=== PATIENT | female | born 1955 | race Caucasian/White ===

== ENCOUNTER → 2016-08-08 | Outpatient (REF) | payer MEDICARE, MEDICAID ==
[~2016-08-08] MED LIST: /LINE60TA PO; /MOXI40TA OR; /ONDA4TA OR; ACET500C OR; ACET50TA PO; ACIDOPHILLUS PO; CALC600T7 PO; CIPR500T4 OR; DETR4CAP OR; DILA2TAB OR; DOXY100T OR; DOXY150C PO; FERR325T3 PO; FLAG500T PO; IBUP600T OR; MACRODANTIN OR; MUCINEX PO; Motrin PO; Ondansetron PO; PERC5TAB8 OR; PRED10TA2 OR; Percocet PO; TYLENOL #3 OR; VICO5TAB OR; VITA500C PO; ZOFR8TAB4 SL; [UNRECOGNIZED DRUG - OTHER]; cipro OR
[2016-08-08 19:29] LABS: ANION GAP 6 MEQ/L (8-16); BLOOD UREA NITROGEN 12 MG/DL (7-18); CARBON DIOXIDE LEVEL 34 MEQ/L (21-32); CHLORIDE LEVEL 100 MEQ/L (98-107); CREATININE FOR GFR 0.98 MG/DL (0.55-1.02); GLOMERULAR FILTRATION RATE > 60.0 (>45); GLUCOSE, FASTING 119 MG/DL (80-110); POTASSIUM SERUM 3.9 MEQ/L (3.5-5.1); SODIUM LEVEL 140 MEQ/L (136-145)
== END ==
LOC: M SFHCPLAZ 15:59
PROVIDERS: ATTEND Physician Assistant
DX: Z01.818 Encounter for other preprocedural examination (principal); M75.100 Unspecified rotator cuff tear or rupture of unspecified shoulder, not specified as traumatic
CPT/HCPCS: 80048; 93005; G0463

== ENCOUNTER → 2016-09-01 | Outpatient (REF) | payer MEDICARE, MEDICAID ==
[2016-09-01 15:24] LABS: BASO % 0.7 % (0.0-1.0); EOS # 0.3 K/mm3 (0.0-0.50); EOS % 4.4 % (0.0-3.0); LARGE UNSTAINED CELL # 0.1 K/mm3 (0.0-0.4); LARGE UNSTAINED CELL % 1.7 % (0.0-4.0); LYMPH % 25.9 % (24.0-44.0); MEAN CORPUSCULAR HEMOGLOBIN 29.4 pg (27.0-33.0); MEAN CORPUSCULAR HGB CONC 32.8 g/dl (32.0-36.5); MEAN CORPUSCULAR VOLUME 89.4 fl (80.0-96.0); MONO # 0.5 K/mm3 (0.0-0.8); MONO % 6.5 % (0.0-5.0); NEUTROPHILS # 4.3 K/mm3 (1.8-7.7); NEUTROPHILS % 60.9 % (36.0-66.0); PLATELET COUNT, AUTOMATED 208 k/mm3 (150-450); RED CELL DISTRIBUTION WIDTH 13.4 % (11.5-14.5); WHITE BLOOD COUNT 7.1 K/mm3 (4.0-10.0)
[2016-09-01 15:44] LABS: ALBUMIN 3.2 GM/DL (3.2-5.2); ALBUMIN/GLOBULIN RATIO 1.03 (1.00-1.93); ALKALINE PHOSPHATASE 122 U/L (45-117); ALT/SGPT 27 U/L (12-78); ANION GAP 6 MEQ/L (8-16); AST/SGOT 21 U/L (15-37); BILIRUBIN,TOTAL 0.3 MG/DL (0.2-1.0); BLOOD UREA NITROGEN 9 MG/DL (7-18); CALCIUM LEVEL 8.9 MG/DL (8.8-10.2); CARBON DIOXIDE LEVEL 33 MEQ/L (21-32); CHLORIDE LEVEL 102 MEQ/L (98-107); CREATININE FOR GFR 0.86 MG/DL (0.55-1.02); ERYTHROCYTE SEDIMENTATION RATE 39 mm/hr (0-30); GLOMERULAR FILTRATION RATE > 60.0 (>45); GLUCOSE, FASTING 74 MG/DL (80-110); POTASSIUM SERUM 4.2 MEQ/L (3.5-5.1); SODIUM LEVEL 141 MEQ/L (136-145); TOTAL PROTEIN 6.3 GM/DL (6.4-8.2)
== END ==
LOC: M SHH 15:05
PROVIDERS: ATTEND Orthopaedic Surgery
DX: Z96.611 Presence of right artificial shoulder joint (principal)

== ENCOUNTER → 2016-09-06 | Outpatient (REF) | payer MEDICARE, MEDICAID ==
[2016-09-06 15:05] LABS: BASO % 0.4 % (0.0-1.0); EOS # 0.2 K/mm3 (0.0-0.50); EOS % 3.8 % (0.0-3.0); LARGE UNSTAINED CELL # 0.2 K/mm3 (0.0-0.4); LARGE UNSTAINED CELL % 2.9 % (0.0-4.0); LYMPH # 1.9 K/mm3 (1.5-4.5); MEAN CORPUSCULAR HEMOGLOBIN 28.1 pg (27.0-33.0); MEAN CORPUSCULAR HGB CONC 31.4 g/dl (32.0-36.5); MEAN CORPUSCULAR VOLUME 89.6 fl (80.0-96.0); MONO # 0.3 K/mm3 (0.0-0.8); NEUTROPHILS # 3.2 K/mm3 (1.8-7.7); NEUTROPHILS % 55.9 % (36.0-66.0); PLATELET COUNT, AUTOMATED 228 k/mm3 (150-450); RED CELL DISTRIBUTION WIDTH 13.3 % (11.5-14.5); WHITE BLOOD COUNT 5.7 K/mm3 (4.0-10.0)
[2016-09-06 15:30] LABS: ANION GAP 5 MEQ/L (8-16); BLOOD UREA NITROGEN 13 MG/DL (7-18); CARBON DIOXIDE LEVEL 34 MEQ/L (21-32); CHLORIDE LEVEL 102 MEQ/L (98-107); CREATININE FOR GFR 0.93 MG/DL (0.55-1.02); ERYTHROCYTE SEDIMENTATION RATE 25 mm/hr (0-30); GLOMERULAR FILTRATION RATE > 60.0 (>45); GLUCOSE, FASTING 82 MG/DL (80-110); POTASSIUM SERUM 4.5 MEQ/L (3.5-5.1); SODIUM LEVEL 141 MEQ/L (136-145)
== END ==
LOC: M SHH 14:41
PROVIDERS: ATTEND Nurse Practitioner Family
DX: T84.7XXD Infection and inflammatory reaction due to other internal orthopedic prosthetic devices, implants and grafts, subsequent encounter (principal)

== ENCOUNTER → 2016-09-08 | Outpatient (CLI) | payer MEDICARE, MEDICAID ==
--- NOTE | 2016-09-08 09:34 | REP ---
Right upper extremity duplex Doppler venous ultrasound. Real time compression and duplex Doppler evaluation of the right upper extremity deep venous system is performed. The right subclavian, jugular, axillary, brachial, basilic and cephalic veins are fully compressible where accessible with transducer pressure, and demonstrate no intraluminal thrombus and normal venous waveforms. There is no evidence of deep venous thrombosis. There appears to be a complex fluid collection in the proximal right humeral region measuring 4.3 x 3.1 x 4.0 cm. Impression: No evidence of deep venous thrombosis of the right upper extremity deep vein system. There appears to be a complex fluid collection in the proximal right humeral region measuring 4.3 x 3.1 x 4.0 cm. Signed by Alex Meeks MD 09/08/2016 09:26 A
== END ==
LOC: M RAD 08:35
PROVIDERS: ATTEND Physician Assistant
DX: M79.601 Pain in right arm (principal); M25.411 Effusion, right shoulder

== ENCOUNTER → 2016-09-14 | Outpatient (REF) | payer MEDICARE, MEDICAID ==
[2016-09-14 10:55] LABS: BASO % 0.7 % (0.0-1.0); EOS # 0.2 K/mm3 (0.0-0.50); EOS % 4.7 % (0.0-3.0); LARGE UNSTAINED CELL # 0.1 K/mm3 (0.0-0.4); LARGE UNSTAINED CELL % 2.1 % (0.0-4.0); LYMPH # 1.9 K/mm3 (1.5-4.5); MEAN CORPUSCULAR HGB CONC 32.1 g/dl (32.0-36.5); MEAN CORPUSCULAR VOLUME 90.4 fl (80.0-96.0); MONO # 0.3 K/mm3 (0.0-0.8); MONO % 6.4 % (0.0-5.0); NEUTROPHILS # 2.1 K/mm3 (1.8-7.7); PLATELET COUNT, AUTOMATED 200 k/mm3 (150-450); RED CELL DISTRIBUTION WIDTH 13.3 % (11.5-14.5); WHITE BLOOD COUNT 4.6 K/mm3 (4.0-10.0)
[2016-09-14 11:19] LABS: CALCIUM LEVEL 8.8 MG/DL (8.8-10.2); CREATININE FOR GFR 1.05 MG/DL (0.55-1.02); GLOMERULAR FILTRATION RATE 56.9 (>45)
[2016-09-14 11:57] LABS: ERYTHROCYTE SEDIMENTATION RATE 23 mm/hr (0-30)
== END ==
LOC: M SHH 10:31
PROVIDERS: ATTEND Internal Medicine Infectious Disease
DX: T84.7XXD Infection and inflammatory reaction due to other internal orthopedic prosthetic devices, implants and grafts, subsequent encounter (principal); I10 Essential (primary) hypertension; J01.00 Acute maxillary sinusitis, unspecified; E55.9 Vitamin D deficiency, unspecified

== ENCOUNTER → 2016-09-20 | Outpatient (REF) | payer MEDICARE, MEDICAID ==
[2016-09-20 19:21] LABS: BASO % 0.7 % (0.0-1.0); EOS # 0.2 K/mm3 (0.0-0.50); EOS % 3.7 % (0.0-3.0); LARGE UNSTAINED CELL # 0.1 K/mm3 (0.0-0.4); LARGE UNSTAINED CELL % 2.6 % (0.0-4.0); LYMPH % 34.3 % (24.0-44.0); MEAN CORPUSCULAR HEMOGLOBIN 28.4 pg (27.0-33.0); MEAN CORPUSCULAR HGB CONC 31.1 g/dl (32.0-36.5); MEAN CORPUSCULAR VOLUME 91.4 fl (80.0-96.0); MONO # 0.4 K/mm3 (0.0-0.8); MONO % 6.5 % (0.0-5.0); NEUTROPHILS # 2.8 K/mm3 (1.8-7.7); NEUTROPHILS % 52.2 % (36.0-66.0); PLATELET COUNT, AUTOMATED 189 k/mm3 (150-450); RED CELL DISTRIBUTION WIDTH 13.3 % (11.5-14.5); WHITE BLOOD COUNT 5.4 K/mm3 (4.0-10.0)
[2016-09-20 19:49] LABS: ERYTHROCYTE SEDIMENTATION RATE 20 mm/hr (0-30)
[2016-09-20 20:43] LABS: ANION GAP 8 MEQ/L (8-16); BLOOD UREA NITROGEN 21 MG/DL (7-18); CALCIUM LEVEL 8.7 MG/DL (8.8-10.2); CARBON DIOXIDE LEVEL 29 MEQ/L (21-32); CHLORIDE LEVEL 103 MEQ/L (98-107); CREATININE FOR GFR 0.99 MG/DL (0.55-1.02); GLOMERULAR FILTRATION RATE > 60.0 (>45); GLUCOSE, FASTING 100 MG/DL (80-110); POTASSIUM SERUM 4.3 MEQ/L (3.5-5.1); SODIUM LEVEL 140 MEQ/L (136-145)
== END ==
LOC: M SHH 16:37
PROVIDERS: ATTEND Internal Medicine Infectious Disease
DX: T84.7XXD Infection and inflammatory reaction due to other internal orthopedic prosthetic devices, implants and grafts, subsequent encounter (principal)

== ENCOUNTER → 2016-09-21 | Outpatient (CLI) | payer MEDICARE, MEDICAID ==
--- NOTE | 2016-09-21 15:26 | REP ---
PICC LINE INSERTION WITH SITE-RITE: The procedure was performed under the direct supervision of Dr. Meeks. The risks and benefits of the procedure were explained to the patient and informed consent was obtained. The left cephalic vein was localized using ultrasound guidance. The skin was prepped and draped in a sterile fashion. 2% lidocaine was used as a local anesthetic. Using ultrasound guidance the cephalic vein was cannulated and a 0.018 guidewire was inserted and advanced to the SVC using fluoroscopic guidance. The needle was removed and a 4.5 Bangladeshi dilator and Peel-Away sheath was inserted over the guidewire. A 4.5 Bangladeshi single lumen catheter was cut to a length of 44 cm. The dilator was removed and the catheter was inserted over the guidewire with the tip ending of the SVC. The Peel-Away sheath was removed and the catheter was flushed with Heparinized saline as per hospital protocol. The catheter was affixed to the skin and a sterile dressing was applied. The patient tolerated the procedure well and there were no immediate complications. After the appropriate amount of monitored convalescence the patient was discharged from the department. 0.2 minutes of fluoroscopic time was utilized for this procedure. Reviewed by YOMAIRA Choudhury 09/21/2016 03:43 PEdited and Signed by Alex Meeks MD 09/21/2016 04:51 P
== END ==
LOC: M RADPRO 08:04
PROVIDERS: ATTEND Internal Medicine Infectious Disease
DX: T84.7XXD Infection and inflammatory reaction due to other internal orthopedic prosthetic devices, implants and grafts, subsequent encounter (principal); X58.XXXD Exposure to other specified factors, subsequent encounter; Y93.9 Activity, unspecified; Y92.9 Unspecified place or not applicable; Y99.8 Other external cause status; Z88.1 Allergy status to other antibiotic agents; Z88.8 Allergy status to other drugs, medicaments and biological substances; Z88.2 Allergy status to sulfonamides; Z79.899 Other long term (current) drug therapy

== ENCOUNTER → 2016-09-27 | Outpatient (REF) | payer MEDICARE, MEDICAID ==
[2016-09-27 19:01] LABS: BASO % 0.6 % (0.0-1.0); EOS # 0.2 K/mm3 (0.0-0.50); EOS % 1.9 % (0.0-3.0); LARGE UNSTAINED CELL # 0.1 K/mm3 (0.0-0.4); LARGE UNSTAINED CELL % 1.3 % (0.0-4.0); LYMPH # 1.9 K/mm3 (1.5-4.5); MEAN CORPUSCULAR HEMOGLOBIN 28.8 pg (27.0-33.0); MEAN CORPUSCULAR VOLUME 90.1 fl (80.0-96.0); MONO # 0.6 K/mm3 (0.0-0.8); MONO % 7.2 % (0.0-5.0); NEUTROPHILS # 5.9 K/mm3 (1.8-7.7); PLATELET COUNT, AUTOMATED 184 k/mm3 (150-450); RED CELL DISTRIBUTION WIDTH 13.6 % (11.5-14.5); WHITE BLOOD COUNT 8.7 K/mm3 (4.0-10.0)
[2016-09-27 19:11] LABS: ANION GAP 6 MEQ/L (8-16); BLOOD UREA NITROGEN 13 MG/DL (7-18); CARBON DIOXIDE LEVEL 32 MEQ/L (21-32); CHLORIDE LEVEL 103 MEQ/L (98-107); GLOMERULAR FILTRATION RATE > 60.0 (>45); GLUCOSE, FASTING 99 MG/DL (80-110); POTASSIUM SERUM 3.9 MEQ/L (3.5-5.1); SODIUM LEVEL 141 MEQ/L (136-145)
[2016-09-27 20:43] LABS: ERYTHROCYTE SEDIMENTATION RATE 18 mm/hr (0-30)
== END ==
LOC: M SHH 17:19
PROVIDERS: ATTEND Internal Medicine Infectious Disease
DX: T84.7XXD Infection and inflammatory reaction due to other internal orthopedic prosthetic devices, implants and grafts, subsequent encounter (principal)

== ENCOUNTER → 2016-09-28 | Outpatient (CLI) | payer MEDICARE, MEDICAID ==
[~2016-09-28] MED LIST changes: +LIDOCAINE 1% MDV 20ML VIAL As Ordered ONE
--- NOTE | 2016-09-28 16:04 | REP ---
ULTRASOUND GUIDED RIGHT SHOULDER FLUID COLLECTION DRAINAGE: The procedure was performed under the direct supervision of Dr. Dixon. The patient has a history of a 4.3 x 3.1 x 4.0 complex fluid collection in the proximal right humeral region seen on a previous ultrasound dated 09/08/2016. The risks and benefits of the procedure were explained to the patient and informed consent was obtained. The right shoulder fluid collection was localized using ultrasound guidance. The skin was prepped and draped in a sterile fashion. 1% Xylocaine was used as a local anesthetic. Using ultrasound guidance, a #5-Yi skater centesis catheter was inserted using trocar technique. 72 mL of esvin colored fluid was withdrawn and sent to the lab. The patient tolerated the procedure well and there were no immediate complications. After the appropriate amount of monitored convalescence the patient was discharged from the department. Reviewed by YOMAIRA Choudhury 09/29/2016 04:40 PEdited and Signed by Tanner Dixon MD 09/29/2016 04:57 P
== END ==
LOC: M RADPRO 10:30
PROVIDERS: ATTEND Internal Medicine Infectious Disease
DX: T84.7XXD Infection and inflammatory reaction due to other internal orthopedic prosthetic devices, implants and grafts, subsequent encounter (principal); X58.XXXD Exposure to other specified factors, subsequent encounter; Z79.899 Other long term (current) drug therapy; Z88.1 Allergy status to other antibiotic agents; Z88.8 Allergy status to other drugs, medicaments and biological substances; Z88.2 Allergy status to sulfonamides; Y99.8 Other external cause status

== ENCOUNTER → 2016-10-05 | Outpatient (REF) | payer MEDICARE, MEDICAID ==
[~2016-10-05] MED LIST changes: -LIDOCAINE 1% MDV 20ML VIAL As Ordered ONE
[2016-10-05 12:03] LABS: BASO % 0.6 % (0.0-1.0); EOS # 0.2 K/mm3 (0.0-0.50); EOS % 3.8 % (0.0-3.0); LARGE UNSTAINED CELL # 0.1 K/mm3 (0.0-0.4); LARGE UNSTAINED CELL % 2.4 % (0.0-4.0); LYMPH # 1.8 K/mm3 (1.5-4.5); LYMPH % 36.4 % (24.0-44.0); MEAN CORPUSCULAR HEMOGLOBIN 29.6 pg (27.0-33.0); MEAN CORPUSCULAR HGB CONC 32.5 g/dl (32.0-36.5); MEAN CORPUSCULAR VOLUME 91.1 fl (80.0-96.0); MONO # 0.4 K/mm3 (0.0-0.8); MONO % 8.3 % (0.0-5.0); NEUTROPHILS # 2.3 K/mm3 (1.8-7.7); NEUTROPHILS % 48.4 % (36.0-66.0); PLATELET COUNT, AUTOMATED 170 k/mm3 (150-450); RED CELL DISTRIBUTION WIDTH 13.4 % (11.5-14.5); WHITE BLOOD COUNT 4.6 K/mm3 (4.0-10.0)
[2016-10-05 12:30] LABS: ANION GAP 5 MEQ/L (8-16); BLOOD UREA NITROGEN 17 MG/DL (7-18); CARBON DIOXIDE LEVEL 33 MEQ/L (21-32); CHLORIDE LEVEL 103 MEQ/L (98-107); CREATININE FOR GFR 0.97 MG/DL (0.55-1.02); GLOMERULAR FILTRATION RATE > 60.0 (>45); GLUCOSE, FASTING 109 MG/DL (80-110); POTASSIUM SERUM 4.5 MEQ/L (3.5-5.1); SODIUM LEVEL 141 MEQ/L (136-145)
[2016-10-05 12:40] LABS: ERYTHROCYTE SEDIMENTATION RATE 13 mm/hr (0-30)
== END ==
LOC: M LABDRAW1 11:32
PROVIDERS: ATTEND Internal Medicine Infectious Disease
DX: T84.7XXD Infection and inflammatory reaction due to other internal orthopedic prosthetic devices, implants and grafts, subsequent encounter (principal); X58.XXXD Exposure to other specified factors, subsequent encounter

== ENCOUNTER → 2016-10-26 | Outpatient (REF) | payer MEDICARE, MEDICAID | LOC: M SFHCPLAZ 09:56 | PROVIDERS: ATTEND Nurse Practitioner Family | DX: I10 Essential (primary) hypertension (principal); J01.00 Acute maxillary sinusitis, unspecified; E55.9 Vitamin D deficiency, unspecified ==

== ENCOUNTER → 2016-11-07 | Outpatient (REF) | payer MEDICARE, MEDICAID ==
[~2016-11-07] MED LIST changes: +ASPI1TAB PO; +BUPR300T34 PO; +BUSP30TA PO; +CALCTAB75 PO; +CEPH500C PO; +CLON0.3T PO; +CYCL10TA PO; +DULO1CAP3 PO; +DULO30CA PO; +FLUC100T; +FOLI1TAB4 PO; +HYDR-3713 PO; +HYDR25TA6; +LEVA1TAB PO; +MAGN1CAP PO; +MAGN500T5 PO; +NORC1TAB4 PO; +NYST1POW9; +OXAY1TAB; +OXYC1TAB23 PO; +REQU5TAB PO; +ROPI5TAB; +SUMA4INJ4; +TYLE325T5 PO; +VITA200015 PO; +VITA500C10 PO; +VITA500T3 PO; +WELLTAB38 PO; +WELLTAB40
[2016-11-07 16:04] LABS: BASO # 0.1 K/mm3 (0.0-0.2); EOS # 0.3 K/mm3 (0.0-0.50); EOS % 4.3 % (0.0-3.0); LARGE UNSTAINED CELL # 0.2 K/mm3 (0.0-0.4); LARGE UNSTAINED CELL % 2.7 % (0.0-4.0); LYMPH # 2.7 K/mm3 (1.5-4.5); LYMPH % 43.5 % (24.0-44.0); MEAN CORPUSCULAR HEMOGLOBIN 29.2 pg (27.0-33.0); MEAN CORPUSCULAR HGB CONC 32.2 g/dl (32.0-36.5); MEAN CORPUSCULAR VOLUME 90.7 fl (80.0-96.0); MONO # 0.5 K/mm3 (0.0-0.8); MONO % 7.4 % (0.0-5.0); NEUTROPHILS # 2.5 K/mm3 (1.8-7.7); NEUTROPHILS % 41.2 % (36.0-66.0); PLATELET COUNT, AUTOMATED 224 k/mm3 (150-450); RED CELL DISTRIBUTION WIDTH 13.6 % (11.5-14.5); WHITE BLOOD COUNT 6.2 K/mm3 (4.0-10.0)
[2016-11-07 17:43] LABS: ERYTHROCYTE SEDIMENTATION RATE 12 mm/hr (0-30)
== END ==
LOC: M SFHCPLAZ 13:04
PROVIDERS: ATTEND Internal Medicine Infectious Disease
DX: T84.7XXD Infection and inflammatory reaction due to other internal orthopedic prosthetic devices, implants and grafts, subsequent encounter (principal)
CPT/HCPCS: 85025; 85652; 86140; G0463

== ENCOUNTER 2016-12-13 12:23 | Emergency (ER) | payer MEDICARE, MEDICAID ==
[~2016-12-13] VITALS: Ht 162.6 cm; Wt 159.1 kg
[~2016-12-13 12:23] MED LIST changes: -ASPI1TAB PO; -BUPR300T34 PO; -BUSP30TA PO; -CALCTAB75 PO; -CEPH500C PO; -CLON0.3T PO; -CYCL10TA PO; -DULO1CAP3 PO; -DULO30CA PO; -FLUC100T; -FOLI1TAB4 PO; -HYDR-3713 PO; -HYDR25TA6; -LEVA1TAB PO; -MAGN1CAP PO; -MAGN500T5 PO; -NORC1TAB4 PO; -NYST1POW9; -OXAY1TAB; -OXYC1TAB23 PO; -REQU5TAB PO; -ROPI5TAB; -SUMA4INJ4; -TYLE325T5 PO; -VITA200015 PO; -VITA500C10 PO; -VITA500T3 PO; -WELLTAB38 PO; -WELLTAB40
[2016-12-13] MEDS ORDERED: CLON0.3T PO (12:36)
[2016-12-13] MEDS ORDERED: HYDR25TA6 (12:36)
[2016-12-13] MEDS ORDERED: DULO1CAP3 PO (12:36)
[2016-12-13] MEDS ORDERED: BUSP30TA PO (12:36)
[2016-12-13] MEDS ORDERED: ROPI5TAB (12:36)
[2016-12-13] MEDS ORDERED: VITA200015 PO (12:36)
[2016-12-13] MEDS ORDERED: CEPH500C PO (12:36)
[2016-12-13] MEDS ORDERED: NYST1POW9 (12:36)
[2016-12-13] MEDS ORDERED: SUMA4INJ4 (12:36)
[2016-12-13] MEDS ORDERED: MAGN1CAP PO (12:36)
[2016-12-13] MEDS ORDERED: CYCL10TA PO (12:36)
[2016-12-13] MEDS ORDERED: ASPI1TAB PO (12:36)
[2016-12-13] MEDS ORDERED: WELLTAB40 (12:36)
[2016-12-13] MEDS ORDERED: FOLI1TAB4 PO (12:36)
[2016-12-13] MEDS ORDERED: VITA500T3 PO (12:36)
[2016-12-13] MEDS ORDERED: OXAY1TAB (12:36)
[2016-12-13] MEDS ORDERED: REQU5TAB PO (12:36)
[2016-12-13] MEDS ORDERED: BUPR300T34 PO (12:36)
[2016-12-13] MEDS ORDERED: ONDANSETRON 4MG/2ML VIAL (J2405) IV ONE (14:30)
[2016-12-13] MEDS ORDERED: KETOROLAC 30 MG/ML VIAL (J1885) IV ONE (14:30)
[2016-12-13] MEDS ORDERED: NS 1,000 ML IV ONE (14:30)
--- NOTE | 2016-12-13 15:06 | REP ---
CT ABDOMEN AND PELVIS WITHOUT CONTRAST: 12/13/2016. Comparison: 12/30/2015, 12/25/2015. Clinical history: Right renal colic. Findings: Noncontrast examination technique utilized. CT abdomen: Lung bases clear. Heart enlarged with some left atrial and ventricular enlargement. No pericardial thickening or effusion. No hiatal hernia. There are surgical clips in the region of the GE junction. The liver is enlarged with a 21 cm vertical diameter. No splenomegaly or focal splenic lesion. No hepatic lesion, biliary dilatation, or ascites. Gallbladder shows no calcified stone or mass. There is a very large diastases of the rectus muscles with ventral hernia to that supraumbilical abdominal wall of omental fat only. Pancreas shows no mass or ductal dilatation. Stomach collapsed. Adrenal glands intact. Kidneys show a stone in the lower pole on the left about 6.5 mm in the renal pelvis on the right. There is a 12 mm stone and this was not present on the CT one year ago. I do not see hydronephrosis or hydroureter. Ureters are followed to the bladder, but do not show a definite stone within their course. They are not dilated. Small bowel loops and colon are without obstruction or mass. Bone windows demonstrate diffuse degenerative changes throughout the lumbar and lower thoracic spine and some anterolisthesis of L3 on L4, grade 1. No compression deformities are noted. The visualized ribs intact. CT pelvis: Lumbosacral junction shows sacralization transverse process of L5 on the left as anatomic variation. The sacrum, iliac bones, acetabuli, ischia and hips show minor degenerative changes without destructive lesion. The pelvis and the bladder is only partially filled, but without stone, wall thickening or mass. Uterus absent. The vaginal cuff intact. There is no pelvic free fluid. Colon and small bowel loops are without dilatation or mass. No colitis or diverticulitis. No inguinal hernia, but a ventral hernia is noted extensively from the upper abdomen through the infraumbilical region with a large pannus in the abdomen and pelvis. Impression: 1. There is a 12 mm stone in a nondilated renal pelvis on the right, which is new from last year's study. A smaller stone in the lower pole of the left kidney about 6.5 mm is again seen. There is no hydronephrosis, hydroureter or ureteral stone. No bladder stone. 2. Very large ventral hernia and diastases of the rectus muscles abdomen and pelvis without obstruction. There are no other significant or acute findings. Signed by Eliezer Mcbride MD 12/13/2016 07:05 P
[2016-12-13 15:15] LABS: ALBUMIN 3.8 GM/DL (3.2-5.2); ALBUMIN/GLOBULIN RATIO 0.95 (1.00-1.93); BILIRUBIN,DIRECT 0.1 MG/DL (0.0-0.2); BILIRUBIN,TOTAL 0.5 MG/DL (0.2-1.0); CALCIUM LEVEL 9.9 MG/DL (8.8-10.2); CREATININE FOR GFR 1.08 MG/DL (0.55-1.02); GLOMERULAR FILTRATION RATE 54.9 (>45); POTASSIUM SERUM 4.3 MEQ/L (3.5-5.1); TOTAL PROTEIN 7.8 GM/DL (6.4-8.2)
[2016-12-13 15:19] LABS: BASO % 0.5 % (0.0-1.0); EOS # 0.1 K/mm3 (0.0-0.50); EOS % 1.7 % (0.0-3.0); LARGE UNSTAINED CELL # 0.1 K/mm3 (0.0-0.4); LARGE UNSTAINED CELL % 1.8 % (0.0-4.0); LYMPH # 2.6 K/mm3 (1.5-4.5); LYMPH % 33.5 % (24.0-44.0); MEAN CORPUSCULAR HEMOGLOBIN 28.9 pg (27.0-33.0); MEAN CORPUSCULAR HGB CONC 32.6 g/dl (32.0-36.5); MEAN CORPUSCULAR VOLUME 88.6 fl (80.0-96.0); MONO # 0.4 K/mm3 (0.0-0.8); MONO % 4.9 % (0.0-5.0); NEUTROPHILS # 4.2 K/mm3 (1.8-7.7); NEUTROPHILS % 57.6 % (36.0-66.0); PLATELET COUNT, AUTOMATED 204 k/mm3 (150-450); RED CELL DISTRIBUTION WIDTH 13.9 % (11.5-14.5); WHITE BLOOD COUNT 7.3 K/mm3 (4.0-10.0)
[2016-12-13 15:40] LABS: CALCIUM OXALATE CRYSTALS SMALL
[2016-12-13 15:50] VITALS: BP 132/77
[2017-02-09] MEDS ORDERED: DULO30CA PO (09:30)
[2017-02-09] MEDS ORDERED: VITA500C10 PO (09:32)
== END 2016-12-13 15:43 | disposition home or self-care (01) ==
LOC: M ED 12:23
DX: K43.9 Ventral hernia without obstruction or gangrene (principal); N23 Unspecified renal colic; N13.30 Unspecified hydronephrosis; G43.909 Migraine, unspecified, not intractable, without status migrainosus; G47.30 Sleep apnea, unspecified; F41.9 Anxiety disorder, unspecified; Z98.84 Bariatric surgery status; Z87.442 Personal history of urinary calculi; Z88.1 Allergy status to other antibiotic agents; Z88.2 Allergy status to sulfonamides; Z88.8 Allergy status to other drugs, medicaments and biological substances; Z79.82 Long term (current) use of aspirin; Z79.899 Other long term (current) drug therapy
CPT/HCPCS: 74176; 80048; 80076; 81001; 83690; 85025; 96374; 96375; 99283; J1885; J2405

== ENCOUNTER → 2016-12-14 | Outpatient (REF) | payer MEDICARE, MEDICAID ==
[~2016-12-14] MED LIST changes: +ASPI1TAB PO; +BUPR300T34 PO; +BUSP30TA PO; +CALCTAB75 PO; +CEPH500C PO; +CLON0.3T PO; +CYCL10TA PO; +DULO1CAP3 PO; +DULO30CA PO; +FLUC100T; +FOLI1TAB4 PO; +HYDR-3713 PO; +HYDR25TA6; +LEVA1TAB PO; +MAGN1CAP PO; +MAGN500T5 PO; +NORC1TAB4 PO; +NYST1POW9; +OXAY1TAB; +OXYC1TAB23 PO; +REQU5TAB PO; +ROPI5TAB; +SUMA4INJ4; +TYLE325T5 PO; +VITA200015 PO; +VITA500C10 PO; +VITA500T3 PO; +WELLTAB38 PO; +WELLTAB40
== END ==
LOC: M LABDRAWP 15:43
PROVIDERS: ATTEND Family Medicine
DX: R30.0 Dysuria (principal)
CPT/HCPCS: 81002; 87086; G0463

== ENCOUNTER 2016-12-16 17:00 | Observation (INO) | payer MEDICARE, MEDICAID ==
[~2016-12-16] VITALS: Ht 162.6 cm; Wt 159.6 kg
[~2016-12-16 17:00] MED LIST changes: -CALCTAB75 PO; -DULO30CA PO; -FLUC100T; -HYDR-3713 PO; -LEVA1TAB PO; -MAGN500T5 PO; -NORC1TAB4 PO; -OXYC1TAB23 PO; -TYLE325T5 PO; -VITA500C10 PO; -WELLTAB38 PO
[2016-12-16] MEDS ORDERED: ONDANSETRON 4MG/2ML VIAL (J2405) IV ONE (18:30)
[2016-12-16] MEDS ORDERED: NS 1,000 ML IV ONE (18:30)
[2016-12-16 18:44] LABS: CALCIUM OXALATE CRYSTALS SMALL
[2016-12-16 19:38] LABS: BASO % 0.6 % (0.0-1.0); EOS # 0.2 K/mm3 (0.0-0.50); EOS % 2.2 % (0.0-3.0); LARGE UNSTAINED CELL # 0.1 K/mm3 (0.0-0.4); LARGE UNSTAINED CELL % 1.9 % (0.0-4.0); LYMPH # 2.4 K/mm3 (1.5-4.5); LYMPH % 34.2 % (24.0-44.0); MEAN CORPUSCULAR HEMOGLOBIN 28.6 pg (27.0-33.0); MEAN CORPUSCULAR HGB CONC 32.6 g/dl (32.0-36.5); MEAN CORPUSCULAR VOLUME 87.6 fl (80.0-96.0); MONO # 0.4 K/mm3 (0.0-0.8); NEUTROPHILS # 3.7 K/mm3 (1.8-7.7); PLATELET COUNT, AUTOMATED 199 k/mm3 (150-450); RED CELL DISTRIBUTION WIDTH 13.9 % (11.5-14.5); WHITE BLOOD COUNT 6.8 K/mm3 (4.0-10.0)
[2016-12-16] MEDS: HYDROmorphone HCL 1 MG/ML SYRINGE (J1170) IV PRN ×3 (19:39→21:59)
[2016-12-16 20:02] LABS: ALBUMIN 3.8 GM/DL (3.2-5.2); ALBUMIN/GLOBULIN RATIO 1.27 (1.00-1.93); ALKALINE PHOSPHATASE 118 U/L (45-117); ALT/SGPT 27 U/L (12-78); ANION GAP 9 MEQ/L (8-16); AST/SGOT 18 U/L (15-37); BILIRUBIN,DIRECT 0.1 MG/DL (0.0-0.2); BILIRUBIN,TOTAL 0.4 MG/DL (0.2-1.0); BLOOD UREA NITROGEN 15 MG/DL (7-18); CALCIUM LEVEL 9.2 MG/DL (8.8-10.2); CARBON DIOXIDE LEVEL 29 MEQ/L (21-32); CHLORIDE LEVEL 108 MEQ/L (98-107); GLOMERULAR FILTRATION RATE > 60.0 (>45); GLUCOSE, FASTING 84 MG/DL (80-110); SODIUM LEVEL 146 MEQ/L (136-145); TOTAL PROTEIN 6.8 GM/DL (6.4-8.2)
--- NOTE | 2016-12-16 20:30 | REPUSA ---
CLINICAL HISTORY: Renal colic, recently diagnosed with right stone. TECHNIQUE: Realtime sonographic images were obtained in multiple projections. FINDINGS: The right kidney measures 11.0 x 4.4 x 4.4 cm. There is a 12.3 mm stone in the pelvis on the right. The left kidney measures 11.4 x 6.4 x 5.7 cm. The left ureter is dilated at 14.4 mm. Both kidneys are free of hydronephrosis. There is no evidence of solid or cystic mass. There is no perinephric fluid. IMPRESSION: 1. There is a 12.3 mm stone in the pelvis on the right. 2. The right ureter is dilated at 14.4 mm. 3. Consider follow-up with CT. Thank you for your kind referral of this patient. We appreciate the opportunity to participate in thi s patient's care.
--- NOTE | 2016-12-16 22:20 | REPUSA ---
CLINICAL HISTORY: Renal colic. COMPARISON: 12/13/2016. TECHNIQUE: Multiple axial, coronal, sagittal CT images were obtained through the abdomen and pelvis without administration of oral or IV contrast material. COMMENTS: The liver is enlarged measuring 23 cm. There is no intra or extrahepatic biliary ductal dilatation. The spleen is mildly enlarged measuring 14 cm. The gallbladder is within normal limits. The pancre as is of normal contour and attenuation characteristics. There is no evidence of adrenal mass. A note is made of 8 x 4 mm calculus in the right UPJ with some mild hydronephrosis. There is 9 x 4 m m calculus noted in the lower pole of the left kidney which is non-obstructive. 12 mm cyst is presen t in the mid pole of the left kidney posteriorly. There is no evidence for appendicitis. There is no bowel wall thickening. Post surgical changes are noted in the stomach. There is a large ventral abdominal hernia containing non-obstructed loops of bowel. There is no evidence of abdominal ascites or lymphadenopathy. There is no evidence of intrinsic or extrinsic bladder mass. There is no pelvic ascites or lymphaden opathy. The patient is status post complete hysterectomy. Images of the lung bases show no evidence of pleural or parenchymal mass. There are no pleural effus ions. Grade-1/2 anterolisthesis of L3 over L4 and L4 over L5 is noted. IMPRESSION: 1. 8 x 4 mm calculus in the right UPJ with some mild hydronephrosis. There is 9 x 4 mm calculus not ed in the lower pole of the left kidney which is non-obstructive. 2. Hepatosplenomegaly. 3. Post surgical changes. 4. Large ventral abdominal hernia containing non-obstructed bowel. 5. Overall no significant interval change.
[2016-12-16] MEDS ORDERED: NS 1,000 ML IV SCH (22:49)
[2016-12-16] MEDS ORDERED: NORC1TAB4 PO (23:28)
[2016-12-16] MEDS ORDERED: MAGN500T5 PO (23:28)
[2016-12-16] MEDS ORDERED: CALCTAB75 PO (23:28)
[2016-12-16] MEDS ORDERED: diphenhydrAMINE INJ 50MG/ML VIAL (J1200) IV STA (23:39)
[2016-12-17] VITALS (9 sets, daily range): BP systolic 123–179; BP diastolic 58–96
[2016-12-17] MEDS: MORPHINE 2 MG/ML 1ML SYRINGE IV PRN ×7 (03:24→22:23)
[2016-12-17] MEDS ORDERED: ACETAMINOPHEN TAB 650MG DOSE (2X325MG) PO PRN (03:45)
[2016-12-17] MEDS: D5W/0.9% SODIUM CHLORIDE 1,000 ML IV SCH ×2 (03:48→18:52)
[2016-12-17 07:47] LABS: MEAN CORPUSCULAR HEMOGLOBIN 28.2 pg (27.0-33.0); MEAN CORPUSCULAR HGB CONC 31.8 g/dl (32.0-36.5); MEAN CORPUSCULAR VOLUME 88.6 fl (80.0-96.0); RED CELL DISTRIBUTION WIDTH 13.9 % (11.5-14.5)
[2016-12-17 08:00] LABS: ANION GAP 9 MEQ/L (8-16); BLOOD UREA NITROGEN 15 MG/DL (7-18); CALCIUM LEVEL 8.7 MG/DL (8.8-10.2); CARBON DIOXIDE LEVEL 28 MEQ/L (21-32); CHLORIDE LEVEL 109 MEQ/L (98-107); CREATININE FOR GFR 0.89 MG/DL (0.55-1.02); GLOMERULAR FILTRATION RATE > 60.0 (>45); GLUCOSE, FASTING 116 MG/DL (80-110); POTASSIUM SERUM 3.9 MEQ/L (3.5-5.1); SODIUM LEVEL 146 MEQ/L (136-145)
[2016-12-17] MEDS: ONDANSETRON 4MG/2ML VIAL (J2405) IV PRN (10:09)
[2016-12-17] MEDS: CIPROFLOXACIN 500 MG TAB PO SCH ×2 (10:10→18:52)
[2016-12-17] MEDS ORDERED: LIDOCAINE 2% INJ 100 MG/5 ML SDV (FOR ANES.) As Ordered ONE (14:30)
[2016-12-17] MEDS ORDERED: PROPOFOL 200 MG/20 ML VIAL As Ordered ONE ×2 (14:30→15:30)
[2016-12-17] MEDS ORDERED: MIDAZOLAM INJ 2 MG/2 ML VIAL (J2250) As Ordered ONE (14:31)
[2016-12-17] MEDS ORDERED: fentaNYL 100 MCG/2 ML INJECTION (J3010) As Ordered ONE ×2 (14:31→17:00)
[2016-12-17] MEDS ORDERED: GENTAMICIN SULF INJ 80MG/2ML VIAL (J1580) As Ordered ONE (15:00)
[2016-12-17] MEDS ORDERED: CONRAY-60 60% 50ML VIAL (Q9961) As Ordered ONE (15:14)
[2016-12-17] MEDS ORDERED: diphenhydrAMINE INJ 50MG/ML VIAL (J1200) As Ordered ONE ×2 (15:30→17:00)
[2016-12-17] MEDS ORDERED: MORPHINE 2 MG/ML 1ML SYRINGE As Ordered ONE (16:24)
[2016-12-17] MEDS ORDERED: PERCOCET 5MG/325MG TAB As Ordered ONE ×2 (16:46→17:14)
[2016-12-17] MEDS: PERCOCET 5MG/325MG TAB PO PRN ×2 (16:47→17:15)
[2016-12-17] MEDS: fentaNYL 100 MCG/2 ML INJECTION (J3010) IV PRN ×4 (17:07→17:31)
[2016-12-17] MEDS ORDERED: diphenhydrAMINE INJ 50MG/ML VIAL (J1200) IV ONE (17:15)
[2016-12-17] MEDS ORDERED: NORCO, ANEXSIA 5/325MG TABLET (HYDROcodone/ACETAMINOPHEN) PO PRN (18:00)
[2016-12-17] MEDS: HEPARIN SOD (PORCINE) 5000 UNITS/ML VIAL SQ SCH ×2 (18:43→21:59)
[2016-12-17] MEDS: FOLIC ACID 1 MG TAB PO SCH (18:51)
[2016-12-17] MEDS: buPROPion **XL** TABLET 150MG (WELLBUTRIN XL) PO SCH (18:51)
[2016-12-17] MEDS: ASPIRIN 81 MG ENTERIC TAB PO SCH (18:51)
[2016-12-17] MEDS: CYANOCOBALAMIN 500 MCG TAB PO SCH (18:52)
[2016-12-17] MEDS ORDERED: DULoxetine 30 MG CAP (CYMBALTA) PO SCH (21:00)
[2016-12-17] MEDS ORDERED: rOPINIRole 1MG TAB PO SCH (21:00)
[2016-12-17] MEDS: cloNIDine 0.1 MG TAB PO SCH (22:00)
[2016-12-17] MEDS: busPIRone 10 MG TAB PO SCH (22:01)
[2016-12-18 04:00] VITALS: BP 113/63
[2016-12-18] MEDS: D5W/0.9% SODIUM CHLORIDE 1,000 ML IV SCH (04:28)
[2016-12-18] MEDS: HEPARIN SOD (PORCINE) 5000 UNITS/ML VIAL SQ SCH (06:03)
[2016-12-18] MEDS: MORPHINE 2 MG/ML 1ML SYRINGE IV PRN ×2 (06:03→08:50)
[2016-12-18 08:00] VITALS: BP 124/70
[2016-12-18] MEDS: buPROPion **XL** TABLET 150MG (WELLBUTRIN XL) PO SCH (08:46)
[2016-12-18] MEDS: CYANOCOBALAMIN 500 MCG TAB PO SCH (08:47)
[2016-12-18] MEDS: FOLIC ACID 1 MG TAB PO SCH (08:47)
[2016-12-18 08:48] VITALS: BP 123/83
[2016-12-18] MEDS: cloNIDine 0.1 MG TAB PO SCH (08:48)
[2016-12-18] MEDS: ASPIRIN 81 MG ENTERIC TAB PO SCH (08:49)
[2016-12-18] MEDS: busPIRone 10 MG TAB PO SCH (08:49)
[2016-12-18] MEDS: ONDANSETRON 4MG/2ML VIAL (J2405) IV PRN (08:57)
--- NOTE | 2016-12-18 08:57 | IPNPDOC ---
Assessment/Plan Date Seen The patient was seen on 12/18/16. Plan/VTE VTE Prophylaxis Ordered?: Yes Subjective Review oF Systems Chief Complaint POD#1 s/p cystoscopy, right ureteral stent placement No acute events overnight. Patient is doing well. Cipro changed to Keflex because of cipro interaction with duloxetine. She reports being able to take Keflex without an allergic reaction. No fever overnight. Pain well controlled. No nausea. Tolerating regular diet. AVSS NAD Abdomen soft, nt, nd Ext wwp Laboratory Tests 12/17/16 07:19 61 year old woman who presented with right flank pain and fever, and found to have a right UPJ stone. Now POD#1 s/p cystoscopy and right ureteral stent. - Regular diet - Continue Keflex - Discharge home this morning - Follow-up with Dr. Marsh for definitive stone management. Patient has appointment scheduled for 12/22/16 at 11:30 AM. Objective Vital Signs/I&O Vital Signs Date Time Temp Pulse Resp B/P (MAP) Pulse Ox O2 Delivery O2 Flow Rate FiO2 12/18/16 08:50 20 12/18/16 08:48 123/83 12/18/16 04:00 98.1 66 98 Room Air 12/17/16 18:15 2.0 I&O- Last 24 Hours up to 6 AM 12/18/16 06:00 Intake Total 2660 ml Output Total 1250 ml Balance 1410 ml Laboratory Data Microbiology Microbiology 12/16/16 Urine Culture - Final, Complete VIKI HARTLEY MD Dec 18, 2016 08:57
[2016-12-18] MEDS ORDERED: CEPHALEXIN 500 MG CAP PO SCH (09:00)
--- NOTE | 2016-12-18 09:25 | REP ---
RETROGRADE PYELOGRAM: 12/17/2016. Comparison: CT abdomen and pelvis 12/16/2016, renal ultrasound 12/16/2016, CT 12/13/2016. Clinical history: Nephrolithiasis. Findings: Seven images from C-arm fluoroscopy provided to Dr. Gramajo of the urology division are reviewed. Subtle radiodensity overlying the renal fossae in the right side on initial image with the wire coursing above it into the renal sinus. Subsequently a catheter is placed over that wire into the kidney and contrast then injected showing distention of the renal pelvis and mild caliectasis. Catheter is into upper pole huey. Thereafter a double pigtail stent was placed with the proximal coil in the renal pelvis and the distal coil in the bladder. Fluoroscopy time 7 seconds. Signed by Eliezer Mcbride MD 12/18/2016 05:51 P
--- NOTE | 2016-12-18 10:54 | HPE ---
DATE OF ADMISSION: 12/16/2016 CHIEF COMPLAINT: Right flank pain. HISTORY OF PRESENT ILLNESS: The patient is a 61-year-old woman with a history of nephrolithiasis and multiple urologic procedures for renal stones who presented with right flank pain for several days. She also reports nausea at home and difficulty with appetite. She reports subjective fevers at home, but she did not take her temperature. She denies hematuria or dysuria at this time. The pain radiates from the right flank to the right groin area. She had a CAT scan performed in the emergency room which showed a 10 mm right ureteropelvic junction (UPJ) stone with mild right hydronephrosis. ALLERGIES: - FENTANYL - SULFA - TRIMETHOPRIM - VANCOMYCIN - LEVAQUIN (IV version, she reports being able to tolerate by mouth version, and she also reports being able to tolerate Cipro) - CEPHALOSPORINS (she reports being able to tolerate Keflex) - TETRACYCLINES - MACROLIDES HOME MEDICATIONS: - duloxetine 60 mg nightly - Keflex 500 mg three times a day - clonidine 3 mg by mouth twice a day - buspirone 30 mg by mouth twice a day - bupropion XL 300 mg daily - folic acid 1 mg daily - ropinirole 5 mg daily - vitamin B12 500 mcg daily - vitamin D 2000 units daily - cyclobenzaprine 10 mg three times a day as needed for spasms - aspirin 81 mg daily - Vicodin 1 tablet every 4 hours as needed - magnesium oxide 500 mg daily - calcium with vitamin D 500/400 one tablet by mouth daily PAST MEDICAL HISTORY: 1. Nephrolithiasis. 2. Hypertension. 3. Migraines. 4. Sleep apnea. 5. History of pneumonia. 6. History of gastric bypass. 7. History of gestational diabetes. 8. History of methicillin-resistant Staphylococcus aureus (MRSA). PAST SURGICAL HISTORY: 1. Abdominal surgery for hernia repair. 2. Ureteroscopy and extracorporeal shockwave lithotripsy (ESWL). 3. Breast lumpectomy. 4. Total hysterectomy. 5. Tonsillectomy and adenoidectomy. 6. Gastric bypass in 2005. SOCIAL HISTORY: The patient denies smoking, alcohol use or drug use. FAMILY HISTORY: Noncontributory. REVIEW OF SYSTEMS: Ten point review of systems is negative except for what was mentioned in the history of present illness. PHYSICAL EXAMINATION: VITAL SIGNS: Temperature 98.1, pulse 70, blood pressure 135/75, pulse oximetry 98% on room air. GENERAL: The patient is alert and oriented times three, lying comfortably in bed. She is obese. HEENT: Normocephalic, atraumatic. Extraocular movements intact. Mucosa moist. NECK: Supple. LUNGS: No wheezing. Normal respiratory effort. ABDOMEN: Obese. Soft. Nontender. Nondistended. Mild costovertebral angle (CVA) tenderness on the right side. No CVA tenderness on the left side. EXTREMITIES: Warm and well perfused. SKIN: Warm and dry. LABORATORY DATA: White blood cell count 5.0, hemoglobin 12.4, hematocrit 39. Urine culture is pending. Urinalysis was positive for trace leukocyte esterase and cloudy appearance. CT scan of the abdomen and pelvis showed a left lower pole stone and a right stone at the UPJ measuring over 10 mm in size by my measurement. There is mild right hydronephrosis. ASSESSMENT AND PLAN: The patient is a 61-year-old female with a history of nephrolithiasis and right flank pain. She has a right large UPJ stone. She also reports subjective fevers at home. 1. Admit for antibiotics and IV hydration, as well as, pain control. 2. Book for the operating room for cystoscopy and right ureteral stent placement. We discussed with the patient that given her fevers at home and not having a urine culture back yet that I did not recommend ureteroscopy at this time. The patient was in agreement. 3. The patient has a followup appointment scheduled with Dr. Marsh on , 12/22/2016, according to the patient. 4. Will start Cipro antibiotics. The patient reports being able to tolerate Cipro in the past without an allergic reaction. She is allergic to almost all antibiotic classes.
--- NOTE | 2016-12-18 11:02 | RO ---
DATE OF OPERATION: 12/17/2016 OPERATING SURGEON: Elia Gramajo MD WINDOW CLEANER: ANESTHESIOLOGIST: Dr. Sharma ANESTHESIA: General with ETA. PREOPERATIVE DIAGNOSES: Right ureteropelvic junction stone and right hydronephrosis. POSTOPERATIVE DIAGNOSES: Right ureteropelvic junction stone and right hydronephrosis. OPERATION PERFORMED: Cystoscopy, right retrograde pyelogram, right ureteral stent placement. ESTIMATED BLOOD LOSS: Minimal. URINE OUTPUT: Not measurable. DRAINS: None. COMPLICATIONS: None. IMPLANTS: 6 x 22-32 cm multilength double J ureteral stent was placed into the right ureter. OPERATIVE FINDINGS: 1. Right hydronephrosis. 2. Radiopaque stone seen at the right ureteropelvic junction. 3. Right retrograde pyelogram performed to ensure that the proximal curl of the ureteral stent was in the renal pelvis. A curl was seen in the bladder, both fluoroscopically and cystoscopically. INDICATIONS FOR THE PROCEDURE: The patient is a 61-year-old woman with a history of nephrolithiasis and multiple procedures for renal stones in the past. She presented on 12/16/2016 to the emergency room with right flank pain and nausea, as well as fevers at home. This was her second presentation in 4 days to the emergency room. For this reason, it was decided to admit her for pain control and place a right ureteral stent into the right kidney. It was decided not to perform ureteroscopy at this time because the patient had fevers and chills at home for several days. DESCRIPTION OF PROCEDURE: Procedure narrative: The patient was taken to the operating room after informed consent and all necessary paperwork were confirmed. She was placed in supine position. She was induced by the anesthesia team after a formal time-out was performed. Preoperative antibiotics with gentamicin were given. The patient was then placed in the dorsal lithotomy position and prepped and draped in the usual sterile fashion. A 21-Lao 30-degree lens cystoscope was placed into the bladder through the urethra. There were no abnormalities noted in the bladder. There was cloudy urine, however, in the bladder and cloudy efflux from the right ureteral orifice. At this point, a 5-Lao open-ended ureteral catheter was used to place a 0.035 zip wire into the right renal collecting system. The 5-Lao open-ended ureteral catheter was advanced under fluoroscopic guidance into the right kidney. A right retrograde pyelogram was performed with instillation of contrast. The 0.035 zip wire was then replaced through the 5-Lao open-ended ureteral catheter, and the ureteral catheter was removed keeping the wire in place using Seldinger technique. At this point, a 6 x 22-32 cm multilength ureteral stent was placed into the right kidney under fluoroscopic guidance. A curl was seen in the kidney fluoroscopically, and a curl was seen in the bladder, both fluoroscopically and cystoscopically. The bladder was then drained. The patient tolerated the procedure well. She was taken to the recovery room without incident. PLAN: 1. The patient has followup scheduled with Dr. Marsh in order to schedule definitive stone management. 2. The patient is aware that the stent can only stay in temporarily, and she needs to have it removed, as well as have her stone definitively treated. ANNIE
--- NOTE | 2016-12-18 11:07 | DSES ---
DATE OF ADMISSION: 12/16/2016 DATE OF DISCHARGE: 12/18/2016 PRIMARY CARE PROVIDER: Dr. Atkinson ADMITTING PROVIDER: Elia Gramajo MD PROCEDURES PERFORMED DURING THIS ADMISSION: Cystoscopy, right retrograde pyelogram, right ureteral double J stent placement on 12/17/2016. COMPLICATIONS: None. ADMISSION/DISCHARGE DIAGNOSES: 1. Right flank pain. 2. Right ureteropelvic junction stone. 3. Right hydronephrosis. 4. Left nonobstructing renal stone. 5. Hypertension. PAST MEDICAL HISTORY: 1. Hypertension. 2. Posttraumatic stress disorder (PTSD). 3. Bilateral knee replacement. 4. Shoulder joint replacement status post infection and removal of hardware. 5. Ventral hernia. 6. Nephrolithiasis. 7. Obesity. PAST SURGICAL HISTORY: 1. Ventral hernia repair with mesh status post infection. 2. Multiple extracorporeal shock wave lithotripsy (ESWL) treatments as well as ureteroscopy. 3. Bilateral knee replacement. 4. Right shoulder joint replacement status post explant for infection. 5. Gastric bypass. 6. Total hysterectomy. ALLERGIES: CEPHALOSPORINS (excluding Keflex), FENTANYL, LEVOFLOXACIN, MACROLIDES, SULFA DRUGS, TETRACYCLINES, TRIMETHOPRIM, VANCOMYCIN. SOCIAL HISTORY: The patient denies alcohol use, history of smoking, or drug use. HOSPITALIZATION COURSE: The patient is a 61-year-old woman who presented to the emergency room on the evening of 12/16/2016 with right flank pain, nausea and fevers at home. She had presented three days earlier with similar symptoms on 12/13/2016 and was discharged home with pain medicine and urologic followup. However, pain began to worsen on 12/16/2016 and she decided to return to the emergency room. A CAT scan performed showed an 11 mm stone at the right ureteropelvic junction (UPJ) with mild hydronephrosis. At this point, the patient was admitted for observation and pain control. On 12/17/2016, the patient underwent an uncomplicated procedure which was a cystoscopy, right retrograde pyelogram, right ureteral stent placement. The details of that procedure are dictated in an operative report separately. The patient tolerated the procedure well. Afterwards, she was able to tolerate a regular diet. There were issues with pain control in the evening and it was decided to keep her until the morning of 12/18/2016. She was discharged home on 12/18/2016 in good condition. OBJECTIVE: VITAL SIGNS: Temperature 98.1, pulse 66, respiratory rate 18, blood pressure 113/63, pulse oximetry 98% on room air. LABORATORY DATA: From 12/17/2016, white blood cell count 5.0, hemoglobin 12.4, hematocrit 39.0, platelet count 180. Chemistry: Sodium 146, potassium 3.9, chloride 109, bicarbonate 28, BUN 15, creatinine 0.89, calcium 8.7. Microbiology: Report reads that the specimen appears contaminated. IMAGING STUDIES: CT of the abdomen and pelvis was performed on 12/16/2016. The CAT scan demonstrated a right UPJ stone with mild right hydronephrosis. There was also a 9 x 4 mm calculous in the lower pole of the left kidney which was nonobstructive, hepatosplenomegaly, postsurgical changes, large ventral abdominal hernia containing nonobstructed bowel. DISCHARGE MEDICATIONS: - [place] 5/325 every four hours as needed for pain - aspirin 81 mg daily - bupropion XL 300 mg daily - buspirone 30 mg twice a day - calcium with vitamin D 500/400 one tablet daily - Keflex 500 mg by mouth three times a day - vitamin D 2000 units daily - clonidine 0.3 mg twice a day - vitamin B12 500 mcg by mouth daily - duloxetine 60 mg nightly - folic acid 1 mg daily - magnesium 500 mg daily - ropinirole (Requip) 5 mg nightly DISCHARGE INSTRUCTIONS: The patient was discharged home. The patient already has scheduled followup with Dr. Marsh on 12/22/2016 at 11:30 a.m. The patient should also followup with her primary care provider.
[2017-02-09] MEDS ORDERED: DULO30CA PO (09:30)
[2017-02-09] MEDS ORDERED: VITA500C10 PO (09:32)
== END 2016-12-18 10:30 | disposition home or self-care (01) ==
LOC: M ED 17:00 → M ED INP 22:49 → M PED 12-17 01:06
PROVIDERS: ADMIT Urology; ATTEND Urology
DX: N13.2 Hydronephrosis with renal and ureteral calculous obstruction (principal); I10 Essential (primary) hypertension; G47.30 Sleep apnea, unspecified; F43.12 Post-traumatic stress disorder, chronic; E66.01 Morbid (severe) obesity due to excess calories; Z88.2 Allergy status to sulfonamides; Z98.84 Bariatric surgery status; Z88.1 Allergy status to other antibiotic agents; Z88.8 Allergy status to other drugs, medicaments and biological substances; Z79.82 Long term (current) use of aspirin; Z79.899 Other long term (current) drug therapy
CPT/HCPCS: 36415; 52332; 74176; 74420; 76775; 80048; 80076; 81001; 83690; 85025; 85027; 87086; 96361; 96372; 96374; 96375; 96376; 99284; C2617; J1170; J1200; J1580; J2250; J2405; J3010; Q9961

== ENCOUNTER 2016-12-22 12:36 | Observation (INO) | payer MEDICARE, MEDICAID ==
[~2016-12-22] VITALS: Ht 162.6 cm; Wt 165.8 kg
[~2016-12-22 12:36] MED LIST changes: +CALCTAB75 PO; +MAGN500T5 PO; +NORC1TAB4 PO
[2016-12-22] MEDS ORDERED: MORPHINE 2 MG/ML 1ML SYRINGE IV PRN (13:45)
[2016-12-22] MEDS ORDERED: ACETAMINOPHEN TAB 650MG DOSE (2X325MG) PO PRN (13:45)
[2016-12-22] MEDS ORDERED: ONDANSETRON 4MG/2ML VIAL (J2405) IV PRN (13:45)
[2016-12-22 16:00] VITALS: BP 156/102
[2016-12-22 16:17] LABS: MEAN CORPUSCULAR HEMOGLOBIN 28.6 pg (27.0-33.0); MEAN CORPUSCULAR HGB CONC 32.6 g/dl (32.0-36.5); RED CELL DISTRIBUTION WIDTH 14.1 % (11.5-14.5); WHITE BLOOD COUNT 6.1 K/mm3 (4.0-10.0)
[2016-12-22 16:26] LABS: ANION GAP 5 MEQ/L (8-16); BLOOD UREA NITROGEN 15 MG/DL (7-18); CALCIUM LEVEL 8.7 MG/DL (8.8-10.2); CARBON DIOXIDE LEVEL 33 MEQ/L (21-32); CHLORIDE LEVEL 105 MEQ/L (98-107); CREATININE FOR GFR 0.89 MG/DL (0.55-1.02); GLOMERULAR FILTRATION RATE > 60.0 (>45); GLUCOSE, FASTING 97 MG/DL (80-110); POTASSIUM SERUM 4.3 MEQ/L (3.5-5.1); SODIUM LEVEL 143 MEQ/L (136-145)
--- NOTE | 2016-12-22 18:14 | REP ---
CHEST, TWO VIEWS: HISTORY: Preoperative. COMPARISON: 12/29/2015 The lungs are clear. The heart is normal in size. The pulmonary vasculature is normal in appearance. The patient is status post removal of metal hardware from the right shoulder. Minimal degenerative change is present in the thoracic spine. IMPRESSION: No acute disease. Signed by Omar Blanc MD 12/23/2016 08:27 A
[2016-12-22] MEDS: PERCOCET 5MG/325MG TAB PO PRN (18:32)
[2016-12-22 20:00] VITALS: BP 138/76
[2016-12-22] MEDS: busPIRone 10 MG TAB PO SCH ×2 (20:08→20:26)
[2016-12-22] MEDS: cloNIDine 0.1 MG TAB PO SCH ×2 (20:08→20:26)
[2016-12-22] MEDS: ASPIRIN 81 MG ENTERIC TAB PO SCH (20:08)
[2016-12-22] MEDS: DOCUSATE SODIUM 100 MG CAP PO SCH ×2 (20:08→20:26)
[2016-12-22] MEDS: rOPINIRole 1MG TAB PO SCH (20:25)
[2016-12-22] MEDS: MORPHINE 4 MG/ML 1ML SYRINGE IV PRN (20:25)
[2016-12-22] MEDS: buPROPion **XL** TABLET 150MG (WELLBUTRIN XL) PO SCH (20:27)
[2016-12-22] MEDS: DULoxetine 30 MG CAP (CYMBALTA) PO SCH (20:27)
--- NOTE | 2016-12-22 21:52 | ECGEPIP ---
Stationary ECG Study [facility] Test Date: 2016-12-22 Pat Name: COURTNEY STARR Department: Room: [place] [address] Gender: F Roving Department Supervisor: JEREMI : 1955 Requested By: KARLA Fernández Order Number: [id number] Reading MD: Ryan Fernández Measurements Intervals [place] Rate: 63 P: 62 RI: 177 QRS: 21 QRSD: 118 T: 37 QT: 394 QTc: 406 Interpretive Statements SINUS RHYTHM MODERATE INTRAVENTRICULAR CONDUCTION DELAY ARTIFACT NOTED ON THE BASELINE COMPARED TO THE LAST 4 TRACINGS IN THE SYSTEM, NO SIGNIFICANT CHANGES Electronically Signed On 12-22-2016 21:52:22 EDT by Ryan Fernández
[2016-12-22 21:55] VITALS: BP 120/56
[2016-12-23] MEDS: MORPHINE 4 MG/ML 1ML SYRINGE IV PRN ×2 (03:11→18:14)
[2016-12-23] MEDS: PERCOCET 5MG/325MG TAB PO PRN ×5 (03:43→20:59)
[2016-12-23 06:00] VITALS: BP 148/72
[2016-12-23 08:30] VITALS: BP 123/74
[2016-12-23] MEDS: buPROPion **XL** TABLET 150MG (WELLBUTRIN XL) PO SCH (08:32)
[2016-12-23] MEDS: DOCUSATE SODIUM 100 MG CAP PO SCH ×2 (08:32→21:00)
[2016-12-23] MEDS: cloNIDine 0.1 MG TAB PO SCH ×2 (08:33→20:57)
[2016-12-23] MEDS: busPIRone 10 MG TAB PO SCH ×2 (08:34→20:57)
[2016-12-23] MEDS: ASPIRIN 81 MG ENTERIC TAB PO SCH (09:00)
[2016-12-23] MEDS ORDERED: CONRAY-60 60% 50ML VIAL (Q9961) As Ordered ONE (11:56)
--- NOTE | 2016-12-23 12:11 | HPEPDOC ---
General Date of Admission Dec 22, 2016 at 14:29 Chief Complaint The patient is a 61-year-old female admitted with a reason for visit of Kidney Stone. History of Present Illness This is a 61 y/o F w/ a history of kidney stones, who is s/p cystoscopy and right ureteral stent placement on 12/17/16 for an obstructing 1cm UPJ stone. She was seen in the office yesterday for f/u and at that time she noted still having severe pain not controlled w/ oral pain medication. She noted that the pain had not improved w/ stent placement. She was therefore admitted to the hospital for better pain control until her surgery. She notes her pain was well -controlled o/n. She denies fevers or chills. Home Medications Scheduled Aspirin (Aspirin 81) 81 Mg Tab, 81 MG PO DAILY, (Reported) Bupropion HCl (Bupropion HCl Xl) 300 Mg Tab, 300 MG PO DAILY, (Reported) Buspirone HCl (Buspirone HCl) 30 Mg Tab, 30 MG PO BID, (Reported) Calcium/Vitamin D (Calcium 500 +D 500-400 mg-Unit) 1 Tab Tab, 1 TAB PO DAILY, ( Reported) Cephalexin Monohydrate (Cephalexin) 500 Mg Cap, 500 MG PO TID, (Reported) Cholecalciferol (Vitamin D) 2,000 Unit Tab, 2,000 UNIT PO DAILY, (Reported) Clonidine Hydrochloride (Clonidine HCl) 0.3 Mg Tab, 0.3 MG PO BID, (Reported) Cyanocobalamin (Vitamin B-12) 500 Mcg Tab, 500 MCG PO DAILY, (Reported) Duloxetine Hcl (Duloxetine HCl) 60 Mg Cap, 60 MG PO QHS, (Reported) Folic Acid (Folic Acid) 1 Mg Tab, 1 MG PO DAILY, (Reported) Magnesium Oxide (Magnesium) 500 Mg Tab, 500 MG PO DAILY, (Reported) Ropinirole Hydrochloride (Requip) 5 Mg Tab, 5 MG PO QHS, (Reported) Scheduled PRN Acetaminophen/Hydrocodone ([place] 5-325 mg) 1 Tab Tab, 1 TAB PO Q4H PRN for PAIN, (Reported) Allergies Coded Allergies: Sulfa Drugs (Verified Allergy, Severe, anyphyalaxis, 12/16/16) Levofloxacin (Verified Allergy, Mild, 12/16/16) Cephalosporins (Verified Allergy, Unknown, 12/16/16) Fentanyl (Unverified Allergy, Unknown, SEVERE ITCHING, 12/16/16) Macrolides (Verified Allergy, Unknown, 12/16/16) Sulfa Drugs Cross Reactors (Verified Allergy, Unknown, 12/16/16) Sulfamethoxazole (Unverified Allergy, Unknown, 12/16/16) Replaces SULFAMETHOXAZ Tetracyclines (Verified Allergy, Unknown, 12/16/16) Trimethoprim (Unverified Allergy, Unknown, 12/16/16) Replaces SULFAMETHOXAZ Vancomycin (Verified Allergy, Unknown, 12/16/16) Past Medical History Medical History morbid obesity, kidney stones, depression Surgical History several kidney stone surgeries, right shoulder surgery, total hysterectomy, right knee arthroscopy Review of Symptoms Constitutional: Denies: Chills, Fever, Night Sweats Eyes: Denies: Pain, Vision change ENT: Denies: Head Aches, Ear Pain, Dysphagia Skin: Denies: Rash, Lesions, Breakdown Pulmonary: Denies: Dyspnea, Cough Cardiovascular: Denies: Chest Pain, Palpitations, Orthopnea, Paroxysmal Noc. Dyspnea, Lt Headedness Gastrointestinal: Denies: Nausea, Vomiting, Abdominal Pain, Diarrhea Genitourinary: Denies: Dysuria, Frequency, Incontinence, Retention Musculoskeletal: Reports: Back Pain (right flank pain) Neurological: Denies: Weakness, Numbness, Change in speech, Confusion Psych: Reports: Mood Normal Physical Examination General Exam: Positive: Alert, No Acute Distress ENT Exam: Positive: Atraumatic Chest Exam: Positive: Clear to auscultation Heart Exam: Positive: Rate Normal Abdomen Exam: Positive: Soft, Negative: Tenderness Skin Exam: Positive: Nl turgor and temperature Neuro Exam: Positive: Normal Speech Psych Exam: Positive: Mental status NL, Mood NL Vital Signs Vital Signs Date Time Temp Pulse Resp B/P (MAP) Pulse Ox O2 Delivery O2 Flow Rate FiO2 12/23/16 08:34 20 Room Air 12/23/16 08:33 123/74 12/23/16 08:30 97.2 65 98 Laboratory Data Labs 24H Laboratory Tests 2 12/22/16 14:54: Anion Gap 5L, Glomerular Filtration Rate > 60.0, Blood Urea Nitrogen 15, Creatinine 0.89, Sodium Level 143, Potassium Level 4.3, Chloride Level 105, Carbon Dioxide Level 33H, Calcium Level 8.7L CBC/BMP Laboratory Tests 12/22/16 14:54 Red Blood Count 4.87, Mean Corpuscular Volume 88.0, Mean Corpuscular Hemoglobin 28.6, Mean Corpuscular Hemoglobin Concent 32.6, Red Cell Distribution Width 14.1 , Calcium Level 8.7 L Assessment/Plan This is a 61 y/o F w/ an obstructing 1cm right UPJ stone, admitted for pain control. Plan for OR today for cystoscopy, right ureteroscopy w/ laser lithotripsy, and right ureteral stent placement. Plan / VTE VTE Prophylaxis Ordered?: Yes VTE Exclusion Mechanical Proph: N/A:VTE Prophy Ordered Plan Plan - OR for cystoscopy, right ureteroscopy w/ laser lithotripsy, right ureteral stent placement - NPO - ancef contemporary or modern dancer to OR - should be ok for discharge home after surgery if pain is controlled KARLA GUERRERO MD Dec 23, 2016 12:11
[2016-12-23] MEDS: LevoFLOXacin(LEVAQUIN)500 MG/100 ML BAG (J1956) As Ordered ONE ×2 (12:19→12:35)
[2016-12-23] MEDS ORDERED: ROCURONIUM BROMIDE 50 MG/5 ML VIAL/SYRINGE As Ordered ONE (12:32)
[2016-12-23] MEDS ORDERED: fentaNYL 250 MCG/5 ML INJECTION (J3010) As Ordered ONE (12:32)
[2016-12-23] MEDS ORDERED: LIDOCAINE 2% INJ 100 MG/5 ML SDV (FOR ANES.) As Ordered ONE (12:32)
[2016-12-23] MEDS ORDERED: dexameTHASONE 4 MG/ML 1ML VIAL (J1100) As Ordered ONE (12:32)
[2016-12-23] MEDS ORDERED: diphenhydrAMINE INJ 50MG/ML VIAL (J1200) As Ordered ONE ×2 (12:32→15:21)
[2016-12-23] MEDS ORDERED: PROPOFOL 200 MG/20 ML VIAL As Ordered ONE (12:32)
[2016-12-23] MEDS ORDERED: ONDANSETRON 4MG/2ML VIAL (J2405) As Ordered ONE (12:32)
[2016-12-23] MEDS ORDERED: MIDAZOLAM INJ 2 MG/2 ML VIAL (J2250) As Ordered ONE (12:32)
[2016-12-23] MEDS ORDERED: ePHEDrine SULFATE 25 MG/5 ML(5MG/ML) SYRINGE As Ordered ONE (12:45)
[2016-12-23] MEDS ORDERED: PHENYLephrine HCL 500 MCG/5 ML (100MCG/ML) SYRINGE (J2370) As Ordered ONE (12:52)
[2016-12-23] MEDS ORDERED: LevoFLOXacin IV 500 MG in APPROPRIATE DILUENT 1 EA IV ONE (13:00)
[2016-12-23] MEDS ORDERED: SUGAMMADEX SODIUM 500 MG/5 ML VIAL (BRIDION) As Ordered ONE (13:30)
[2016-12-23] MEDS ORDERED: fentaNYL 100 MCG/2 ML INJECTION (J3010) As Ordered ONE ×3 (14:07→14:58)
[2016-12-23] MEDS: fentaNYL 100 MCG/2 ML INJECTION (J3010) IV PRN ×10 (14:08→15:12)
[2016-12-23] MEDS ORDERED: LR 1,000 ML IV SCH (14:15)
[2016-12-23] MEDS ORDERED: PERCOCET 5MG/325MG TAB PO PRN (14:15)
[2016-12-23] MEDS ORDERED: ONDANSETRON 4MG/2ML VIAL (J2405) IV PRN (14:15)
[2016-12-23] MEDS ORDERED: MEPERIDINE INJ 25 MG/ML VIAL (J2175) IV PRN (14:15)
[2016-12-23] MEDS ORDERED: METOCLOPRAMIDE INJ 10MG/2ML VIAL (J2765) IV PRN (14:15)
--- NOTE | 2016-12-23 15:14 | REP ---
Retrograde pyelogram: The procedures performed by the urologist, Dr. Marsh. A series of three intraoperative fluoroscopic views are performed during right ureteral stent placement. The films indicate that the proximal and distal pigtails are in satisfactory locations. Fluoroscopic exposure time is 13 seconds. Fluoroscopic images are performed with last image hold technology. These images require no additional radiation. Signed by Alex Jones MD 12/23/2016 03:06 P
[2016-12-23] MEDS ORDERED: MEPERIDINE INJ 25 MG/ML VIAL (J2175) As Ordered ONE (15:21)
[2016-12-23] MEDS ORDERED: diphenhydrAMINE INJ 50MG/ML VIAL (J1200) IV PRN (16:00)
[2016-12-23] MEDS ORDERED: KETOROLAC 30 MG/ML VIAL (J1885) As Ordered ONE (16:04)
[2016-12-23] MEDS ORDERED: PERCOCET 5MG/325MG TAB As Ordered ONE (16:04)
[2016-12-23] MEDS ORDERED: KETOROLAC 30 MG/ML VIAL (J1885) IV SCH (16:15)
[2016-12-23] MEDS: rOPINIRole 1MG TAB PO SCH (20:56)
[2016-12-23] MEDS: DULoxetine 30 MG CAP (CYMBALTA) PO SCH (21:00)
[2016-12-24] VITALS: BP 125/69
[2016-12-24] MEDS: MORPHINE 4 MG/ML 1ML SYRINGE IV PRN (00:47)
[2016-12-24 04:00] VITALS: BP 112/57
[2016-12-24] MEDS: PERCOCET 5MG/325MG TAB PO PRN (07:20)
[2016-12-24 07:23] LABS: MEAN CORPUSCULAR HEMOGLOBIN 28.3 pg (27.0-33.0); MEAN CORPUSCULAR VOLUME 88.2 fl (80.0-96.0); WHITE BLOOD COUNT 6.8 K/mm3 (4.0-10.0)
[2016-12-24 08:00] VITALS: BP 127/80
[2016-12-24] MEDS: ASPIRIN 81 MG ENTERIC TAB PO SCH (08:53)
[2016-12-24] MEDS: busPIRone 10 MG TAB PO SCH (08:53)
[2016-12-24] MEDS: DOCUSATE SODIUM 100 MG CAP PO SCH (08:53)
[2016-12-24] MEDS: buPROPion **XL** TABLET 150MG (WELLBUTRIN XL) PO SCH (08:53)
[2016-12-24 08:54] VITALS: BP 127/80
[2016-12-24] MEDS: cloNIDine 0.1 MG TAB PO SCH (08:54)
[2016-12-24] MEDS ORDERED: TYLE325T5 PO (09:54)
--- NOTE | 2016-12-24 15:38 | RO ---
DATE OF PROCEDURE: 12/23/2016 PREPROCEDURE DIAGNOSIS: Right kidney stone. POSTPROCEDURE DIAGNOSIS: Right kidney stone. PROCEDURE: Cystoscopy, right ureteroscopy with laser lithotripsy and basket extraction of stones, right retrograde pyelogram with intraoperative interpretation of images, right ureteral stent placement. SURGEON: Dr. Merlin Marsh [employer]: None. ANESTHESIA: General. OPERATIVE INDICATIONS: This is a 61-year-old female who was brought to the operating room this past weekend for a right ureteral stent placement for an obstructing 1 cm right ureteropelvic junction stone. She has had continued pain despite stent placement and was therefore brought to the operating room today for treatment of her stone. DESCRIPTION OF PROCEDURE: The patient was brought to the operating room where general anesthesia was induced. Prophylactic antibiotics were infused. She was then placed in the dorsal lithotomy position and prepped and draped in the usual sterile fashion. A rigid cystoscope was then inserted into the urethral meatus and advanced to the bladder. Once within the bladder, the previously placed stent was seen. The stent was then grasped and withdrawn until the distal end was seen protruding from urethral meatus. I then advanced a wire up the stent into the right collecting system. The stent was then removed leaving the wire in place. Next, I advanced an access sheath over the wire up into the right collecting system. The wire was secured to the drape to serve as a safety wire. I went back into the sheath with a flexible ureteroscope and the 1 cm stone was seen. The stone was then fragmented into smaller fragments using a 200 Micron laser fiber. The fragments were then removed using the basket. Any remaining fragments inside the kidney were broken down into tiny pieces using the laser. These pieces should be small enough to pass. At this point, I checked the kidney for any additional stones. No additional stones were seen. I then withdrew the ureteroscope along with the access sheath and no stones were seen within the ureter. Prior to doing this, a retrograde pyelogram was performed. It was negative for extravasation. I then utilized the previously placed wire to advance a 6-Yoruba x 22-32 cm JJ ureteral stent up into the right collecting system. The wire was then removed and there were adequate curls of the stent in the right renal pelvis and in the bladder. The bladder was then emptied of all fluid and this marked the conclusion of the procedure. The patient was then taken out of the dorsal lithotomy position, awakened from anesthesia and transported to the recovery room in stable condition. ESTIMATED BLOOD LOSS: 0 mL. COMPLICATIONS: None. SPECIMENS: Kidney stones. PLAN: The patient will be sent back up to her room and then discharged home. Will take her stent out in my office in a few weeks. ANNIE
--- NOTE | 2016-12-25 15:28 | DSES ---
DATE OF ADMISSION: 12/22/2016 DATE OF DISCHARGE: 12/24/2016 ADMITTING PHYSICIAN: Merlin Marsh MD DISCHARGING PHYSICIAN: Merlin Marsh MD ADMISSION DIAGNOSIS: Kidney stones. DISCHARGE DIAGNOSIS: Kidney stones. PROCEDURE PERFORMED: Cystoscopy, right ureteroscopy with laser lithotripsy and basket extraction of stones and right ureteral stent exchange on 12/23/2016. HISTORY OF PRESENT ILLNESS: This is a 61-year-old female who underwent cystoscopy and right ureteral stent placement for an obstructing right ureteropelvic junction stone one week ago. Despite stent placement, she still had severe pain and was admitted to the hospital on 12/22/2016 for pain control prior to her surgery on 12/23/2016. HOSPITAL COURSE: The patient was admitted to 12/22/2016 for pain control. Pain was well controlled with IV pain medications. The patient was taken to the operating room on 12/23/2016 for management of the stone. Postoperatively, she still had pain and continued to require IV pain medication. She therefore stayed the night and her pain was well controlled on the next morning. She was therefore discharged home on 12/24/2016 in good condition. She will followup in the clinic in a few weeks for a stent removal. ANNIE
[2017-01-06 14:14] LABS: Size 10x5x4 mm (.)
[2017-02-09] MEDS ORDERED: DULO30CA PO (09:30)
[2017-02-09] MEDS ORDERED: VITA500C10 PO (09:32)
== END 2016-12-24 10:30 | disposition home or self-care (01) ==
LOC: M MS4PR 14:29 → M PED 12-23 19:55
PROVIDERS: ADMIT Urology; ATTEND Urology
DX: N20.0 Calculus of kidney (principal); I10 Essential (primary) hypertension; F32.9 Major depressive disorder, single episode, unspecified; E66.01 Morbid (severe) obesity due to excess calories; Z79.82 Long term (current) use of aspirin; Z79.899 Other long term (current) drug therapy; Z88.2 Allergy status to sulfonamides; Z88.8 Allergy status to other drugs, medicaments and biological substances; Z88.1 Allergy status to other antibiotic agents
CPT/HCPCS: 36415; 52356; 71020; 74420; 80048; 82360; 85027; 88300; 93005; 96374; 96376; C1769; C1894; C2617; G0378; G0463; J1100; J1200; J1885; J1956; J2175; J2250; J2370; J2405; J3010; Q9961

== ENCOUNTER → 2016-12-26 | Outpatient (REF) | payer MEDICARE, MEDICAID ==
[~2016-12-26] MED LIST changes: +DULO30CA PO; +FLUC100T; +HYDR-3713 PO; +LEVA1TAB PO; +OXYC1TAB23 PO; +TYLE325T5 PO; +VITA500C10 PO; +WELLTAB38 PO
[2016-12-26 12:08] LABS: BASO % 0.6 % (0.0-1.0); EOS # 0.2 K/mm3 (0.0-0.50); EOS % 3.1 % (0.0-3.0); LARGE UNSTAINED CELL # 0.1 K/mm3 (0.0-0.4); LARGE UNSTAINED CELL % 1.2 % (0.0-4.0); LYMPH % 27.1 % (24.0-44.0); MEAN CORPUSCULAR HEMOGLOBIN 28.7 pg (27.0-33.0); MEAN CORPUSCULAR VOLUME 89.8 fl (80.0-96.0); MONO # 0.6 K/mm3 (0.0-0.8); MONO % 8.4 % (0.0-5.0); NEUTROPHILS # 4.1 K/mm3 (1.8-7.7); NEUTROPHILS % 59.5 % (36.0-66.0); PLATELET COUNT, AUTOMATED 193 k/mm3 (150-450); RED CELL DISTRIBUTION WIDTH 14.2 % (11.5-14.5)
[2016-12-26 12:27] LABS: ERYTHROCYTE SEDIMENTATION RATE 21 mm/hr (0-30)
== END ==
LOC: M SFHCPLAZ 09:26
PROVIDERS: ATTEND Internal Medicine Infectious Disease
DX: T84.7XXD Infection and inflammatory reaction due to other internal orthopedic prosthetic devices, implants and grafts, subsequent encounter (principal); X58.XXXA Exposure to other specified factors, initial encounter; Y92.9 Unspecified place or not applicable; Y93.9 Activity, unspecified; Y99.8 Other external cause status
CPT/HCPCS: 36415; 85025; 85652; 86140; G0463

== ENCOUNTER → 2017-01-05 | Outpatient (REF) | payer MEDICARE, MEDICAID ==
[2017-01-05 18:14] LABS: YEAST LIKE CELL URINE AUTO SMALL
== END ==
LOC: M SMT 16:57
PROVIDERS: ATTEND Urology
DX: R30.0 Dysuria (principal)

== ENCOUNTER → 2017-01-30 | Outpatient (REF) | payer MEDICARE, MEDICAID ==
[2017-01-30 13:12] LABS: BASO % 0.6 % (0.0-1.0); EOS # 0.2 K/mm3 (0.0-0.50); EOS % 2.7 % (0.0-3.0); LARGE UNSTAINED CELL # 0.1 K/mm3 (0.0-0.4); LARGE UNSTAINED CELL % 2.1 % (0.0-4.0); LYMPH # 2.2 K/mm3 (1.5-4.5); LYMPH % 32.4 % (24.0-44.0); MEAN CORPUSCULAR HEMOGLOBIN 28.9 pg (27.0-33.0); MEAN CORPUSCULAR HGB CONC 33.2 g/dl (32.0-36.5); MEAN CORPUSCULAR VOLUME 87.2 fl (80.0-96.0); MONO # 0.4 K/mm3 (0.0-0.8); MONO % 5.2 % (0.0-5.0); NEUTROPHILS # 3.8 K/mm3 (1.8-7.7); PLATELET COUNT, AUTOMATED 197 k/mm3 (150-450); RED CELL DISTRIBUTION WIDTH 14.1 % (11.5-14.5); WHITE BLOOD COUNT 6.7 K/mm3 (4.0-10.0)
[2017-01-30 14:28] LABS: ERYTHROCYTE SEDIMENTATION RATE 20 mm/hr (0-30)
== END ==
LOC: M SFHCPLAZ 10:55
PROVIDERS: ATTEND Internal Medicine Infectious Disease
DX: A49.8 Other bacterial infections of unspecified site (principal); Z23 Encounter for immunization
CPT/HCPCS: 36415; 85025; 85652; 86140; 90686; G0008; G0463

== ENCOUNTER → 2017-02-02 | Outpatient (CLI) | payer MEDICARE, MEDICAID ==
--- NOTE | 2017-02-02 16:50 | REP ---
ULTRASOUND RIGHT SHOULDER: Ultrasound right shoulder performed in the area of surgery to evaluate for possible fluid collection. There is a scar anteriorly. At the medial end of the scar in the region of the mid clavicle there is a complex fluid collection in the soft tissues which measures 4.5 x 3.6 x 5.3 cm. Differential diagnosis would include abscess or complex seroma/hematoma. Unreviewed
== END ==
LOC: M RAD 10:57
PROVIDERS: ATTEND Internal Medicine Infectious Disease
DX: T84.7XXD Infection and inflammatory reaction due to other internal orthopedic prosthetic devices, implants and grafts, subsequent encounter (principal); A49.8 Other bacterial infections of unspecified site

== ENCOUNTER → 2017-02-15 | Outpatient (CLI) | payer MEDICARE, MEDICAID ==
[~2017-02-15] MED LIST changes: +LIDOCAINE 1% MDV 20ML VIAL As Ordered ONE; +LIDOCAINE 2% INJ 100 MG/5 ML SDV (FOR ANES.) As Ordered ONE; +MIDAZOLAM INJ 2 MG/2 ML VIAL (J2250) As Ordered ONE; +PROPOFOL 200 MG/20 ML VIAL As Ordered ONE; +ePHEDrine SULFATE 25 MG/5 ML(5MG/ML) SYRINGE As Ordered ONE
--- NOTE | 2017-02-15 15:49 | REP ---
ULTRASOUND GUIDED RIGHT SHOULDER ABSCESS DRAIN: The procedure was performed under the direct supervision of Dr. Dixon. The patient has a history of a 4.5 x 3.6 x 5.3 cm complex fluid collection in the soft tissue at the medial end of the scar in the region of the mid clavicle seen on a previous ultrasound dated 02/02/2017. The risks and benefits of the procedure were explained to the patient and informed consent was obtained. The right shoulder abscess was localized using ultrasound guidance. The skin was prepped and draped in a sterile fashion. 1% lidocaine was used as a local anesthetic. Using ultrasound guidance, a #5-Gabonese Skater centesis catheter was inserted using trocar technique. 45 mL of yellow fluid was withdrawn and sent to the lab. The patient tolerated the procedure well and there were no immediate complications. After the appropriate amount of monitored convalescence the patient was discharged from the department. Reviewed by YOMAIRA Choudhury 02/15/2017 04:47 PEdited and Signed by Tanner Dixon MD 02/16/2017 05:18 P
== END ==
LOC: M RADPRO 09:35
PROVIDERS: ATTEND Internal Medicine Infectious Disease
DX: T84.7XXD Infection and inflammatory reaction due to other internal orthopedic prosthetic devices, implants and grafts, subsequent encounter (principal); X58.XXXD Exposure to other specified factors, subsequent encounter; Y93.9 Activity, unspecified; Y92.9 Unspecified place or not applicable; Y99.8 Other external cause status; Z96.653 Presence of artificial knee joint, bilateral; Z96.611 Presence of right artificial shoulder joint; Z98.84 Bariatric surgery status; Z88.5 Allergy status to narcotic agent; Z88.2 Allergy status to sulfonamides; Z88.1 Allergy status to other antibiotic agents; Z79.82 Long term (current) use of aspirin; Z79.899 Other long term (current) drug therapy; Z79.2 Long term (current) use of antibiotics
CPT/HCPCS: 20611; 87070; 87075; 87076; 87205; J2250

== ENCOUNTER 2017-02-17 18:44 | Day surgery (SDC) | payer MEDICARE, MEDICAID ==
[~2017-02-17] VITALS: Ht 162.6 cm; Wt 147.7 kg
[~2017-02-17 18:44] MED LIST changes: -FLUC100T; -HYDR-3713 PO; -LEVA1TAB PO; -LIDOCAINE 1% MDV 20ML VIAL As Ordered ONE; -LIDOCAINE 2% INJ 100 MG/5 ML SDV (FOR ANES.) As Ordered ONE; -MIDAZOLAM INJ 2 MG/2 ML VIAL (J2250) As Ordered ONE; -OXYC1TAB23 PO; -PROPOFOL 200 MG/20 ML VIAL As Ordered ONE; -WELLTAB38 PO; -ePHEDrine SULFATE 25 MG/5 ML(5MG/ML) SYRINGE As Ordered ONE
[2017-02-17] MEDS ORDERED: WELLTAB40 (18:53)
[2017-02-17] MEDS ORDERED: WELLTAB38 PO (18:53)
[2017-02-17] MEDS ORDERED: FLUC100T (18:53)
[2017-02-17] MEDS ORDERED: MORPHINE 4 MG/ML 1ML SYRINGE IV ONE (22:15)
[2017-02-17] MEDS ORDERED: diphenhydrAMINE INJ 50MG/ML VIAL (J1200) IV ONE (22:15)
[2017-02-17 22:34] LABS: CALCIUM OXALATE CRYSTALS SMALL; YEAST LIKE CELL URINE AUTO SMALL
[2017-02-17 22:49] LABS: BASO % 0.3 % (0.0-1.0); EOS # 0.1 10^3/uL (0.0-0.50); EOS % 1.6 % (0.0-3.0); IMMATURE GRANULOCYTE % 0.3 % (0-0); LYMPH % 34.6 % (24.0-44.0); MEAN CORPUSCULAR HEMOGLOBIN 28.2 pg (27.0-33.0); MEAN CORPUSCULAR HGB CONC 31.4 g/dl (32.0-36.5); MEAN CORPUSCULAR VOLUME 89.7 fl (80.0-96.0); MONO # 0.6 10^3/uL (0.0-0.8); MONO % 7.3 % (0.0-5.0); NEUTROPHILS # 4.9 10^3/uL (1.8-7.7); NEUTROPHILS % 55.9 % (36.0-66.0); PLATELET COUNT, AUTOMATED 204 10^3/uL (150-450); RED CELL DISTRIBUTION WIDTH 14.5 % (11.5-14.5); WHITE BLOOD COUNT 8.8 10^3/uL (4.0-10.0)
--- NOTE | 2017-02-17 23:00 | REPUSA ---
CT of the abdomen and pelvis without contrast Clinical statement: Pain. Technique: Multiple axial CT images were obtained from the base of the lungs to the floor of the pelv is utilizing 5 mm axial slices without administration of contrast. Coronal and sagittal reconstructio ns were also obtained. Comparison: 12/16/2016. Findings: Chest: The visualized lung bases are clear. Abdomen: The kidneys are normal in size bilaterally. There is moderate left-sided hydronephrosis caus ed by 9 mm obstructing stone at the left ureteropelvic junction. The right renal collecting system is unremarkable. Bilateral nonobstructing stones are seen as well. The liver remains enlarged. No focal hepatic masses are seen. The spleen, pancreas, gallbladder and adrenal glands are unremarkable. The aorta demonstrates normal caliber and contour. There is no abdominal lymphadenopathy or ascites. The large ventral hernia is stable. Pelvis: The bowel is unremarkable, with no obstructive or inflammatory changes. The urinary bladder i s within normal limits. There is no pelvic lymphadenopathy or ascites. The other pelvic structures ap pear unremarkable. Bones: There are no suspicious osseous abnormalities seen. Impression: 1. Moderate left-sided hydronephrosis caused by 9 mm obstructing stone at the left ureteropelvic junc tion. 2. Bilateral nonobstructing stones are also appreciated. 3. No obstructive or inflammatory bowel changes. Stable ventral hernia.
[2017-02-17 23:07] LABS: ANION GAP 7 MEQ/L (8-16); BLOOD UREA NITROGEN 12 MG/DL (7-18); CARBON DIOXIDE LEVEL 32 MEQ/L (21-32); CHLORIDE LEVEL 102 MEQ/L (98-107); CREATININE FOR GFR 0.92 MG/DL (0.55-1.02); GLOMERULAR FILTRATION RATE > 60.0 (>45); GLUCOSE, FASTING 97 MG/DL (80-110); POTASSIUM SERUM 3.8 MEQ/L (3.5-5.1); SODIUM LEVEL 141 MEQ/L (136-145)
[2017-02-17] MEDS ORDERED: ONDANSETRON 4MG/2ML VIAL (J2405) IV ONE (23:30)
[2017-02-18] VITALS (10 sets, daily range): BP systolic 96–142; BP diastolic 54–67
[2017-02-18] MEDS ORDERED: HYDROmorphone HCL 1 MG/ML SYRINGE (J1170) IV ONE
[2017-02-18] MEDS ORDERED: MORPHINE 10 MG/ML 1ML VIAL IV ONE (01:15)
[2017-02-18] MEDS ORDERED: ONDANSETRON 4MG/2ML VIAL (J2405) IV ONE ×2 (01:15→15:45)
[2017-02-18] MEDS ORDERED: oxyCODONE 5MG TAB PO PRN (02:00)
[2017-02-18] MEDS ORDERED: ONDANSETRON 4MG/2ML VIAL (J2405) IV PRN (02:00)
[2017-02-18] MEDS ORDERED: ACETAMINOPHEN 500 MG TAB PO PRN (02:15)
[2017-02-18] MEDS: D5W/0.45% SODIUM CHLORIDE 1,000 ML IV SCH ×2 (02:45→12:00)
[2017-02-18] MEDS: AMPICILLIN SOD 1 GM in D5W 50 ML IV SCH ×4 (02:46→21:41)
[2017-02-18] MEDS: GENTAMICIN 100 MG in APPROPRIATE DILUENT 1 EA IV SCH ×2 (04:17→18:16)
[2017-02-18] MEDS: MORPHINE 2 MG/ML 1ML SYRINGE IV PRN ×3 (04:21→20:14)
[2017-02-18] MEDS: cloNIDine 0.1 MG TAB PO SCH ×2 (08:28→20:50)
[2017-02-18] MEDS: ASPIRIN 81 MG ENTERIC TAB PO SCH (08:55)
[2017-02-18] MEDS: buPROPion **XL** TABLET 150MG (WELLBUTRIN XL) PO SCH (08:55)
[2017-02-18] MEDS: busPIRone 10 MG TAB PO SCH ×2 (08:55→20:50)
[2017-02-18] MEDS ORDERED: busPIRone 10 MG TAB PO SCH (09:00)
[2017-02-18] MEDS ORDERED: diphenhydrAMINE INJ 50MG/ML VIAL (J1200) IM ONE (10:45)
[2017-02-18] MEDS ORDERED: diphenhydrAMINE INJ 50MG/ML VIAL (J1200) IV ONE (10:45)
[2017-02-18] MEDS ORDERED: CONRAY-60 60% 50ML VIAL (Q9961) As Ordered ONE (12:25)
[2017-02-18] MEDS ORDERED: LR 1,000 ML IV SCH (14:45)
[2017-02-18] MEDS ORDERED: PERCOCET 5MG/325MG TAB PO PRN (14:45)
[2017-02-18] MEDS ORDERED: MORPHINE 2 MG/ML 1ML SYRINGE IV PRN (14:45)
[2017-02-18] MEDS ORDERED: ONDANSETRON 4MG/2ML VIAL (J2405) As Ordered ONE (15:33)
[2017-02-18] MEDS ORDERED: PERCOCET 5MG/325MG TAB As Ordered ONE (15:50)
--- NOTE | 2017-02-18 19:40 | HPEPDOC ---
General Date of Admission Feb 17, 2017 at 18:45 Attending Physician: IFRAH ZUÑIGA MD Chief Complaint The patient is a 61-year-old female admitted with a reason for visit of Kidney Stone. History of Present Illness The patient is a 61-year-old female who presented to the [facility] emergency department on the night of 02/17/2017 complaining of severe left flank pain. This patient has a history of multiple stone episodes in the past some of which required surgical intervention. Most recently she had a left ureteral stent placed at another facility. The stent was bothering her quite a bit and she presented to Dr. Marsh. Dr. Marsh performed and extracorporal shockwave lithotripsy procedure. In the emergency room on February 17 CT scan imaging was performed and demonstrated an approximately 9 mm stone in the left ureteropelvic junction. Her laboratory examinations were fairly unremarkable but did suggest an active urinary tract infection. She was counseled thoroughly on the various treatment options for the stone including a trial of passage with medical expulsive therapy versus a surgical intervention. The patient preferred to proceed to a surgical intervention. She was admitted for 23 hour observation/same-day care procedure by the urology service. Home Medications Scheduled Ascorbic Acid (Vitamin C 500 mg) 1 Chw Chw, 500 MG PO DAILY, (Reported) Aspirin (Aspirin 81) 81 Mg Tab, 81 MG PO DAILY, (Reported) Bupropion HCl (Bupropion HCl Xl) 300 Mg Tab, 300 MG PO DAILY, (Reported) ALONG WITH 150MG = 450MG TOTAL DAILY Bupropion HCl (Wellbutrin Xl) 150 Mg Tab, 150 MG PO DAILY, (Reported) ALONG WITH 300MG = 450MG TOTAL DAILY Buspirone HCl (Buspirone HCl) 30 Mg Tab, 30 MG PO BID, (Reported) Calcium/Vitamin D (Calcium 500 +D 500-400 mg-Unit) 1 Tab Tab, 1 TAB PO DAILY, ( Reported) Cephalexin Monohydrate (Cephalexin) 500 Mg Cap, 500 MG PO TID, (Reported) Cholecalciferol (Vitamin D) 2,000 Unit Tab, 2,000 UNIT PO DAILY, (Reported) Clonidine Hydrochloride (Clonidine HCl) 0.3 Mg Tab, 0.3 MG PO BID, (Reported) Cyanocobalamin (Vitamin B-12) 500 Mcg Tab, 500 MCG PO DAILY, (Reported) Duloxetine Hcl (Duloxetine HCl) 60 Mg Cap, 60 MG PO QHS, (Reported) Folic Acid (Folic Acid) 1 Mg Tab, 1 MG PO DAILY, (Reported) Magnesium Oxide (Magnesium) 500 Mg Tab, 500 MG PO DAILY, (Reported) Ropinirole Hydrochloride (Requip) 5 Mg Tab, 5 MG PO QHS, (Reported) Scheduled PRN Acetaminophen (Tylenol) 325 Mg Tab, 650 MG PO Q4HP PRN for PAIN, (Reported) Allergies Coded Allergies: Sulfa Drugs (Verified Allergy, Severe, anyphyalaxis, 12/16/16) Fentanyl (Unverified Allergy, Mild, CAUSES ITCHING - NO ITCHING WHEN GIVE W/ BENADYL, 12/23/16) Levofloxacin (Verified Allergy, Mild, ITCHING WITH IV, 12/23/16) can tolerate po, can also tolerate cipro Cephalosporins (Verified Allergy, Unknown, 12/16/16) Macrolides (Verified Allergy, Unknown, 12/16/16) Sulfa Drugs Cross Reactors (Verified Allergy, Unknown, 12/16/16) Sulfamethoxazole (Unverified Allergy, Unknown, 12/16/16) Replaces SULFAMETHOXAZ Tetracyclines (Verified Allergy, Unknown, 12/16/16) Trimethoprim (Unverified Allergy, Unknown, 12/16/16) Replaces SULFAMETHOXAZ Vancomycin (Verified Allergy, Unknown, 12/16/16) Past Medical History Medical History 1. Nephrolithiasis. 2. Hypertension. 3. Migraines. 4. Sleep apnea. 5. History of pneumonia. 6. History of gastric bypass. 7. History of gestational diabetes. 8. History of methicillin-resistant Staphylococcus aureus (MRSA). Surgical History PAST SURGICAL HISTORY: 1. Abdominal surgery for hernia repair. 2. Ureteroscopy and extracorporeal shockwave lithotripsy (ESWL). 3. Breast lumpectomy. 4. Total hysterectomy. 5. Tonsillectomy and adenoidectomy. 6. Gastric bypass in 2005. 7. Bilateral total knee replacement. Social History * Smoker: Denies Alcohol: Denies Drugs: denies Review of Symptoms Constitutional: Denies: Chills, Fever, Night Sweats Eyes: Denies: Pain, Vision change ENT: Denies: Head Aches, Ear Pain, Dysphagia Skin: Denies: Rash, Lesions, Breakdown Pulmonary: Denies: Dyspnea, Cough Cardiovascular: Denies: Chest Pain, Palpitations, Orthopnea, Paroxysmal Noc. Dyspnea, Lt Headedness Gastrointestinal: Denies: Nausea, Vomiting, Abdominal Pain, Diarrhea Genitourinary: Reports: Hematuria, Denies: Dysuria, Frequency, Incontinence, Retention Hematologic: Denies: Bruising, Bleeding Excessively Musculoskeletal: Denies: Neck Pain, Back Pain, Joint Pain, Muscle Pain, Spasms Neurological: Denies: Weakness, Numbness, Change in speech, Confusion Psych: Reports: Mood Normal, Denies: Depression, Memory Issues Physical Examination General Exam: Positive: Alert, No Acute Distress Eye Exam: Positive: PERRLA, Conjunctiva & lids normal, EOMI, Negative: Sclera icteric ENT Exam: Positive: Atraumatic, Mucous membr. moist/pink, Pharynx Normal Neck Exam: Positive: Supple, Negative: JVD, thyromegaly Chest Exam: Positive: Clear to auscultation, Normal air movement Heart Exam: Positive: Rate Normal, Regular Rhythm, Normal S1, Normal S2, Negative: Murmurs, Rubs Telemetry: Positive: No significant arrhythmia Abdomen Exam: Positive: Normal bowel sounds, Soft, Tenderness, Negative: Hepatospenomegaly Extremity Exam: Positive: Normal pulses, Negative: Clubbing, Cyanosis, Edema Skin Exam: Positive: Nl turgor and temperature, Negative: Breakdown, Lesion Neuro Exam: Positive: Normal Gait, Normal Speech, Cranial Nerves 3-12 NL, Reflexes 2+ Psych Exam: Positive: Mental status NL, Mood NL, Oriented x 3 Vital Signs Vital Signs Date Time Temp Pulse Resp B/P (MAP) Pulse Ox O2 Delivery O2 Flow Rate FiO2 02/18/17 18:45 98.2 66 18 142/64 (90) 97 Room Air 02/18/17 15:52 2.0 Laboratory Data Labs 24H Laboratory Tests 2 02/17/17 22:15: Urine Appearance CLOUDYH, Urine Color YELLOW, Urine pH 6.0, Urine Specific [place] 1.021, Urine Protein 2+H, Urine Glucose (UA) NEGATIVE, Urine Ketones NEGATIVE, Urine Urobilinogen 0.2, Urine Bilirubin NEGATIVE, Urine Leukocyte Esterase 1+H, Urine Blood 3+H, Urine Nitrite NEGATIVE, Urine WBC (Auto) 38H, Urine RBC (Auto) TNTCH, Urine Hyaline Casts (Auto) 0, Urine Bacteria (Auto) 2+H , Urine Squamous Epithelial Cells 9, Urine Calcium Oxalate Cryst (Auto) SMALL, Urine Mucus (Auto) SMALL, Urine Yeast-Like Cells (Auto) SMALLH, Urine Sperm ( Auto) 02/17/17 22:34: Immature Granulocyte % (Auto) 0.3H, White Blood Count 8.8, Red Blood Count 4.86 , Hemoglobin 13.7, Hematocrit 43.6, Mean Corpuscular Volume 89.7, Mean Corpuscular Hemoglobin 28.2, Mean Corpuscular Hemoglobin Concent 31.4L, Red Cell Distribution Width 14.5, Platelet Count 204, Neutrophils (%) (Auto) 55.9, Lymphocytes (%) (Auto) 34.6, Monocytes (%) (Auto) 7.3H, Eosinophils (%) (Auto) 1.6, Basophils (%) (Auto) 0.3, Neutrophils # (Auto) 4.9, Lymphocytes # (Auto) 3.0, Monocytes # (Auto) 0.6, Eosinophils # (Auto) 0.1, Basophils # (Auto) 0.0, Immature Granulocyte # (Auto) 0.0, Nucleated Red Blood Cells % (auto) 0.0, Anion Gap 7L, Glomerular Filtration Rate > 60.0, Blood Urea Nitrogen 12, Creatinine 0.92, Sodium Level 141, Potassium Level 3.8, Chloride Level 102, Carbon Dioxide Level 32, Calcium Level 9.0 CBC/BMP Laboratory Tests 02/17/17 22:34 Red Blood Count 4.86, Mean Corpuscular Volume 89.7, Mean Corpuscular Hemoglobin 28.2, Mean Corpuscular Hemoglobin Concent 31.4 L, Red Cell Distribution Width 14.5, Neutrophils (%) (Auto) 55.9, Lymphocytes (%) (Auto) 34.6, Monocytes (%) ( Auto) 7.3 H, Eosinophils (%) (Auto) 1.6, Basophils (%) (Auto) 0.3, Neutrophils # (Auto) 4.9, Lymphocytes # (Auto) 3.0, Monocytes # (Auto) 0.6, Eosinophils # ( Auto) 0.1, Basophils # (Auto) 0.0, Calcium Level 9.0 Microbiology Microbiology 02/17/17 Urine Culture, Received Pending RAD Interpretation Rad Actions: Report Reviewed Assessment/Plan Large symptomatic left ureteopelvic juction stone Plan / VTE VTE Prophylaxis Ordered?: Yes VTE Exclusion Pharmacological: Bleeding Risk Plan Plan 1. Admit to urology for 23 hr observation / same day care. 2. NPO. 3. to OR when available for: cystoscopy, left retrograde pyelogram, left ureteral stent placement, possible left ureteroscopy and laser lithotripsy. 4. Likely discharge to home after procedure. IFRAH ZUÑIGA MD Feb 18, 2017 19:40
--- NOTE | 2017-02-18 20:28 | ROOPDOC ---
[facility] Report Of Operation Report of Operation DATE OF PROCEDURE: 02/18/17 PREPROCEDURE DIAGNOSES: Left ureteropelvic junction stone. POSTPROCEDURE DIAGNOSES: Left ureteropelvic junction stone. PROCEDURE: Cystoscopy, left retrograde pyelogram, left ureteroscopy and stone basketing, left ureteral stent placement. SURGEON: Ifrah Nath MD MANAGER ELECTRONIC: electromyographic technician ANESTHESIA: Spinal anesthesia with sedation. ESTIMATED BLOOD LOSS: Minimal COMPLICATIONS: None. REMARKS: Large stone and several smaller fragments basketed out of left kidney. JUSTIFICATION FOR PROCEDURE: This patient is a 61-year-old female who presented to the [facility] emergency department with left flank pain and was found to have an approximately 9 mm stone at her left UPJ. The urology service was consulted. The patient was counseled on the various treatment options going forward including a trial of passage with medical expulsive therapy, as well as various surgical modalities. The patient elected to proceed to the above described procedures. Full written informed consent was obtained. DESCRIPTION OF PROCEDURE: After being evaluated by the anesthesia service the patient was transferred to the operating room. Spinal anesthesia with sedation was initiated and the patient was placed into the dorsal lithotomy position. Timeout was performed. She had already received ampicillin and gentamicin as surgical prophylaxis. Her genitalia was prepped and draped in the usual sterile manner. We began the procedure by advancing a 22.5 Burundian rigid cystoscope through the urethra into the bladder. The urethra and interior of the bladder appeared generally normal. Bilateral ureteral orifices were visualized and orthotopic position. A 5 Burundian open-ended ureteral catheter was advanced through the cystoscope and used to cannulate the left ureteral orifice. Contrast was then injected through the ureteral catheter and up the left ureter in a retrograde manner. Simultaneous fluoroscopic imaging demonstrated a ureter and left renal collecting system that that generally normal in course and caliber. The catheter was advanced up the ureter proximally into the kidney. A sensor wire was then advanced through the ureteral catheter and up into the left kidney. The catheter was backed off the wire leaving the wire in place. The cystoscope was removed and a ureteral access sheath was then advanced over the wire up the left ureter and just into the left renal pelvis under fluoroscopic guidance. The inner cannula of the access sheath was removed and a second wire was advanced up the access sheath and into the left kidney. The sheath was backed off of both wires leaving the both in place. Then the access sheath was again advanced over one of the wires and up into good position in the left renal pelvis. The inner cannula and wire were removed. This left the sheath and safety wire in place. An 8 Burundian red rubber catheter was placed through the urethra into the bladder to drain the bladder during the ureteroscopy. We then advanced a flexible ureteroscope through the sheath and up into the left renal pelvis. Using the retrograde pyelogram as a roadmap we then systematically explored each of the individual calyces of the left kidney. There were several tiny stone fragments visualized in the upper and midpole calyces however these were so small that they could not be basketed out. In the lower pole calyx there was a single large fragment of stone as well as several other smaller fragments. We then basketed out each of the stone fragments one by one. Once we had removed all stone fragments we sent several of them off for stone composition analysis. The ureteroscope was removed during which time the interior of the ureter was carefully examined. No stones were visualized in the ureter. After the ureteroscope was out the cystoscope was replaced over the guidewire into the bladder.. A 6 Burundian multilength ureteral stent was then advanced over the wire through the cystoscope and up the left ureter under fluoroscopic guidance. When it was in good position the wire was removed. The stent was confirmed to be properly placed. The string was left on the stent and coming out of the urethra. The bladder was drained and the stent string was secured to the perineum with a Tegaderm dressing. The patient was placed back into the supine position. Anesthesia was discontinued and the patient was transferred to the postoperative care unit. She had been hemodynamically stable throughout the entire case. PLAN: The patient will be discharged home today. She has been instructed to follow up with Dr. Marsh in the next 1-2 weeks for stent removal and to discuss stone prevention strategies. She has been given prescriptions for levaquin to be taken for the next 4 days, as well as percocet in case she has further pain. IFRAH NATH MD Feb 18, 2017 20:28
[2017-02-18] MEDS ORDERED: DULoxetine 30 MG CAP (CYMBALTA) PO SCH (21:00)
[2017-02-18] MEDS: diphenhydrAMINE INJ 50MG/ML VIAL (J1200) IV PRN (21:00)
[2017-02-19] VITALS: BP 105/56
[2017-02-19] MEDS: MORPHINE 2 MG/ML 1ML SYRINGE IV PRN (02:42)
[2017-02-19] MEDS: diphenhydrAMINE INJ 50MG/ML VIAL (J1200) IV PRN (02:42)
[2017-02-19] MEDS: AMPICILLIN SOD 1 GM in D5W 50 ML IV SCH ×2 (02:43→09:26)
[2017-02-19 04:00] VITALS: BP 106/53
[2017-02-19] MEDS: GENTAMICIN 100 MG in APPROPRIATE DILUENT 1 EA IV SCH (04:30)
[2017-02-19] MEDS: D5W/0.45% SODIUM CHLORIDE 1,000 ML IV SCH (07:59)
[2017-02-19 08:00] VITALS: BP 122/65
[2017-02-19] MEDS: ASPIRIN 81 MG ENTERIC TAB PO SCH (08:17)
[2017-02-19] MEDS: buPROPion **XL** TABLET 150MG (WELLBUTRIN XL) PO SCH (08:18)
[2017-02-19 08:19] VITALS: BP 106/53
[2017-02-19] MEDS: cloNIDine 0.1 MG TAB PO SCH (08:19)
[2017-02-19] MEDS: busPIRone 10 MG TAB PO SCH (08:19)
[2017-02-19 08:47] VITALS: BP 106/53
--- NOTE | 2017-02-19 11:39 | REP ---
1 minute 9 seconds of fluoroscopy time was provided to Dr. Nath during left-sided double J stent catheter placement. Six images were obtained. There is a double J stent catheter seen on the left, the proximal portion of which is not included on the spot film but the distal portion of which is seen in the urinary bladder. Signed by Dre Koroma DO 02/19/2017 09:45 A
[2017-02-19] MEDS ORDERED: HYDR-3713 PO (23:03)
== END 2017-02-19 12:00 | disposition home or self-care (01) ==
LOC: M ED 18:44 → M SDC 18:45 → UNDOADMOB 18:45 → M ED INP 18:45 → M ED 02-18 12:33 → M ED INP 02-18 16:15 → M PED 02-18 16:15 → M SDC 02-18 20:35 → M PED 02-19 12:00 → UNDODISOB 02-19 12:00 → M SDC 02-19 12:00
PROVIDERS: ATTEND Urology Pediatric Urology
DX: N20.1 Calculus of ureter (principal); I10 Essential (primary) hypertension; E66.9 Obesity, unspecified; G47.33 Obstructive sleep apnea (adult) (pediatric); G43.909 Migraine, unspecified, not intractable, without status migrainosus; Z88.1 Allergy status to other antibiotic agents; Z88.2 Allergy status to sulfonamides; Z88.5 Allergy status to narcotic agent; Z88.8 Allergy status to other drugs, medicaments and biological substances; Z79.899 Other long term (current) drug therapy; Z79.82 Long term (current) use of aspirin; Z87.442 Personal history of urinary calculi; Z96.653 Presence of artificial knee joint, bilateral; Z98.84 Bariatric surgery status
CPT/HCPCS: 36415; 52332; 52352; 74176; 74420; 80048; 81001; 82360; 85025; 87086; 88300; 96365; 96366; 96374; 96375; 96376; 99284; C1769; C1894; C2617; J1170; J1200; J1580; J2405; Q9961

== ENCOUNTER 2017-02-19 21:48 | Emergency (ER) | payer MEDICARE, MEDICAID ==
[~2017-02-19] VITALS: Ht 162.6 cm; Wt 147.7 kg
[~2017-02-19 21:48] MED LIST changes: +FLUC100T; +WELLTAB38 PO
[2017-02-19] MEDS ORDERED: HYDR-3713 PO (23:03)
[2017-02-19] MEDS ORDERED: diphenhydrAMINE INJ 50MG/ML VIAL (J1200) IV ONE (23:45)
[2017-02-19] MEDS ORDERED: ONDANSETRON 4MG/2ML VIAL (J2405) IV ONE (23:45)
[2017-02-19] MEDS ORDERED: HYDROmorphone HCL 1 MG/ML SYRINGE (J1170) IV ONE (23:45)
[2017-02-20 01:03] LABS: BASO % 0.3 % (0.0-1.0); EOS # 0.2 10^3/uL (0.0-0.50); EOS % 1.6 % (0.0-3.0); IMMATURE GRANULOCYTE % 0.5 % (0-0); LYMPH # 1.6 10^3/uL (1.5-4.5); LYMPH % 15.7 % (24.0-44.0); MEAN CORPUSCULAR HEMOGLOBIN 28.5 pg (27.0-33.0); MEAN CORPUSCULAR VOLUME 89.1 fl (80.0-96.0); MONO % 10.1 % (0.0-5.0); NEUTROPHILS # 7.4 10^3/uL (1.8-7.7); NEUTROPHILS % 71.8 % (36.0-66.0); PLATELET COUNT, AUTOMATED 187 10^3/uL (150-450); RED CELL DISTRIBUTION WIDTH 14.6 % (11.5-14.5); WHITE BLOOD COUNT 10.3 10^3/uL (4.0-10.0)
[2017-02-20 01:08] LABS: MICROSCOPIC INDICATED? MAN YES (NO)
[2017-02-20] MEDS ORDERED: MORPHINE 10 MG/ML 1ML VIAL IV ONE (01:15)
[2017-02-20 01:18] LABS: CALCIUM OXALATE CRYSTALS,URINE SMALL AMOUNT /hpf; RBC, URINE TNTC /hpf (0-3); SQUAMOUS EPITHELIAL CELL URINE NONE SEEN /hpf (SMALL AMT)
[2017-02-20 01:19] LABS: BACTERIA, URINE MOD AMOUNT; HYALINE CAST, URINE NONE SEEN /lpf (0-1); MICROSCOPIC EXAM PERFORMED
[2017-02-20 01:22] LABS: CALCIUM LEVEL 9.3 MG/DL (8.8-10.2); CREATININE FOR GFR 1.26 MG/DL (0.55-1.02); POTASSIUM SERUM 4.2 MEQ/L (3.5-5.1)
[2017-02-20] MEDS ORDERED: diphenhydrAMINE INJ 50MG/ML VIAL (J1200) IV ONE (01:30)
[2017-02-20] MEDS ORDERED: HYDROmorphone HCL 1 MG/ML SYRINGE (J1170) IV ONE (02:00)
[2017-02-20 02:04] VITALS: BP 130/70
[2017-02-21] MEDS ORDERED: OXYC1TAB23 PO (11:26)
[2017-02-21] MEDS ORDERED: LEVA1TAB PO (11:26)
== END 2017-02-20 03:20 | disposition home or self-care (01) ==
LOC: M ED 21:48
DX: M54.9 Dorsalgia, unspecified (principal); Z98.84 Bariatric surgery status
CPT/HCPCS: 80048; 81000; 85025; 87086; 96374; 96375; 96376; 99283; J1170; J1200; J1580; J2405

== ENCOUNTER 2017-02-21 10:59 | Emergency (ER) | payer MEDICARE, MEDICAID ==
[~2017-02-21] VITALS: Ht 162.6 cm; Wt 153.2 kg
[~2017-02-21 10:59] MED LIST changes: +HYDR-3713 PO
[2017-02-21] MEDS ORDERED: OXYC1TAB23 PO (11:26)
[2017-02-21] MEDS ORDERED: LEVA1TAB PO (11:26)
[2017-02-21] MEDS ORDERED: NS 1,000 ML IV SCH (13:20)
[2017-02-21] MEDS ORDERED: KETOROLAC 30 MG/ML VIAL (J1885) IV ONE (13:30)
[2017-02-21] MEDS ORDERED: ONDANSETRON 4MG/2ML VIAL (J2405) IV ONE (13:30)
[2017-02-21] MEDS ORDERED: diphenhydrAMINE INJ 50MG/ML VIAL (J1200) IV STA (13:46)
[2017-02-21 13:57] LABS: BASO % 0.6 % (0.0-1.0); EOS # 0.2 10^3/uL (0.0-0.50); EOS % 2.4 % (0.0-3.0); IMMATURE GRANULOCYTE % 0.3 % (0-0); LYMPH # 1.6 10^3/uL (1.5-4.5); LYMPH % 22.8 % (24.0-44.0); MEAN CORPUSCULAR HEMOGLOBIN 28.4 pg (27.0-33.0); MEAN CORPUSCULAR HGB CONC 31.5 g/dl (32.0-36.5); MEAN CORPUSCULAR VOLUME 90.3 fl (80.0-96.0); MONO # 0.6 10^3/uL (0.0-0.8); MONO % 8.5 % (0.0-5.0); NEUTROPHILS # 4.6 10^3/uL (1.8-7.7); NEUTROPHILS % 65.4 % (36.0-66.0); PLATELET COUNT, AUTOMATED 173 10^3/uL (150-450); RED CELL DISTRIBUTION WIDTH 14.6 % (11.5-14.5); WHITE BLOOD COUNT 7.1 10^3/uL (4.0-10.0)
[2017-02-21] MEDS: MORPHINE 2 MG/ML 1ML SYRINGE IV PRN ×2 (14:13→15:18)
[2017-02-21 14:24] LABS: ALBUMIN 3.3 GM/DL (3.2-5.2); ALBUMIN/GLOBULIN RATIO 0.83 (1.00-1.93); BILIRUBIN,DIRECT 0.1 MG/DL (0.0-0.2); BILIRUBIN,TOTAL 0.5 MG/DL (0.2-1.0); CALCIUM LEVEL 9.2 MG/DL (8.8-10.2); TOTAL PROTEIN 7.3 GM/DL (6.4-8.2)
--- NOTE | 2017-02-21 15:48 | REP ---
CT abdomen and pelvis without IV or oral contrast: Renal stone protocol. History: Left-sided renal obstruction. Comparison CT study February 17, 2017. Retrograde pyelogram images are reviewed from February 18, 2017. The recent CT study show an obstructive calculus at the left ureteropelvic junction. The retrograde study from 3 days ago showed a double pigtail ureteral stent in place on the left. CT findings: The lung bases are clear. Bowel gas pattern is unremarkable. No hepatic or splenic lesion is seen. Gastric bypass sutures are seen in the left upper quadrant. No adrenal lesion is seen. The gallbladder and the pancreas are unremarkable. There is a 2 mm intrarenal calculus in the lower pole of the right kidney without right-sided hydronephrosis. A small cyst is suspected in the upper pole of the right kidney. These findings are unchanged. On the left, there is a tiny calcific fragment in the lower pole collecting system of the left kidney today, 2 mm in diameter. There is some persistent mild left-sided hydronephrosis and periureteral edema is seen. No ureteral calculus is observed, however. No bladder calculus is seen. No retroperitoneal mass or adenopathy is seen. A broad ventral abdominal hernia is seen post repair. Small and large intestinal bowel loops are unremarkable. Impression: Mild, but improved left hydronephrosis persists. There is periureteral edema post retrograde stent placement and removal. No ureteral calculus is seen. A tiny 2 mm calcific fragment is seen in the intrarenal collecting system lower pole left kidney. There is a 2 mm intrarenal calculus in the lower pole of the right kidney as well. No right-sided hydronephrosis. No other urinary calculi. Signed by Tanner Dixon MD 02/21/2017 05:30 P
[2017-02-21] MEDS ORDERED: AMPICILLIN SOD 1 GM in D5W 50 ML IV ONE (16:15)
[2017-02-21 17:24] VITALS: BP 136/78
--- NOTE | 2017-02-22 06:40 | ED PDOC ---
Post-Departure Follow-Up dr soto and alpesh sanchez faxed formal report of ct abd/p for fu Julieta Costa MD Feb 22, 2017 06:40
== END 2017-02-21 17:10 | disposition home or self-care (01) ==
LOC: M ED 10:59
DX: G89.18 Other acute postprocedural pain (principal)
CPT/HCPCS: 74176; 80048; 80076; 81001; 83690; 85025; 87086; 96374; 96375; 96376; 99283; J1200; J1885; J2405

== ENCOUNTER → 2017-03-21 | Outpatient (CLI) | payer MEDICARE, MEDICAID ==
[~2017-03-21] MED LIST changes: +LEVA1TAB PO; +OXYC1TAB23 PO
--- NOTE | 2017-03-22 11:15 | REP ---
Procedure: PICC line insertion with Elmo The procedure was performed under the direct supervision of Dr. Dixon. The risks and benefits of the procedure were explained to the patient and informed consent was obtained. The left brachial vein was localized using ultrasound guidance. The skin was prepped and draped in a sterile fashion. 2% lidocaine was used as a local anesthetic. Using ultrasound guidance the brachial vein was cannulated and a 0.018 guidewire was inserted and advanced to the SVC using fluoroscopic guidance. The needle was removed and a 4.5 Kyrgyz dilator and peel-away sheath was inserted over the guide wire. A 4.5 Kyrgyz single lumen catheter was cut to length of 46 cm. The dilator was removed and the catheter was inserted over the guide wire with the tip ending in the SVC. The peel-away sheath was removed and the catheter was flushed with heparinized saline as per Hospital protocol. The catheter was affixed to the skin and a sterile dressing was applied. The the patient tolerated the procedure well and there were no immediate complications. 0.2 minutes of fluoro time was utilized for this procedure. Reviewed by YOMAIRA Choudhury 03/21/2017 04:26 PSigned by Tanner Dixon MD 03/22/2017 11:06 A
== END ==
LOC: M RADPRO 14:24
PROVIDERS: ATTEND Internal Medicine Infectious Disease
DX: T84.7XXD Infection and inflammatory reaction due to other internal orthopedic prosthetic devices, implants and grafts, subsequent encounter (principal); Z88.5 Allergy status to narcotic agent; Z88.8 Allergy status to other drugs, medicaments and biological substances; Z88.2 Allergy status to sulfonamides; Z88.1 Allergy status to other antibiotic agents
CPT/HCPCS: 36415; 36569; 76937; 80048; 85027; 85652; 86140; J0696

== ENCOUNTER 2017-03-27 13:42 | Outpatient (CLI) | payer MEDICARE, MEDICAID ==
[~2017-03-27 13:42] MED LIST changes: +SODIUM CHLORIDE 0.9% INJ 10 ML SYR IV PRN
[2017-03-27] MEDS ORDERED: cefTRIAXone SOD 1 GM in D5W 50 ML IV ONE (14:00)
[2017-03-27 15:04] LABS: MEAN CORPUSCULAR HGB CONC 31.4 g/dl (32.0-36.5); MEAN CORPUSCULAR VOLUME 89.2 fl (80.0-96.0); PLATELET COUNT, AUTOMATED 180 10^3/uL (150-450); RED CELL DISTRIBUTION WIDTH 14.5 % (11.5-14.5)
[2017-03-27 15:19] LABS: ANION GAP 3 MEQ/L (8-16); BLOOD UREA NITROGEN 14 MG/DL (7-18); CALCIUM LEVEL 9.3 MG/DL (8.8-10.2); CARBON DIOXIDE LEVEL 32 MEQ/L (21-32); CHLORIDE LEVEL 105 MEQ/L (98-107); GLOMERULAR FILTRATION RATE > 60.0 (>45); GLUCOSE, FASTING 89 MG/DL (80-110); POTASSIUM SERUM 4.6 MEQ/L (3.5-5.1); SODIUM LEVEL 140 MEQ/L (136-145)
[2017-03-27 15:41] LABS: ERYTHROCYTE SEDIMENTATION RATE 17 mm/hr (0-30)
[2017-03-27] MEDS ORDERED: SODIUM CHLORIDE 0.9% INJ 10 ML SYR IV SCH (18:00)
== END 2017-03-27 14:45 | disposition home or self-care (01) ==
LOC: M INFU 13:42
PROVIDERS: ATTEND Internal Medicine Infectious Disease
DX: T84.7XXD Infection and inflammatory reaction due to other internal orthopedic prosthetic devices, implants and grafts, subsequent encounter (principal); A49.8 Other bacterial infections of unspecified site; Z96.651 Presence of right artificial knee joint; Z96.652 Presence of left artificial knee joint; Z98.84 Bariatric surgery status; Z96.611 Presence of right artificial shoulder joint; Z88.5 Allergy status to narcotic agent; Z88.8 Allergy status to other drugs, medicaments and biological substances; Z88.2 Allergy status to sulfonamides; Z88.1 Allergy status to other antibiotic agents; Z79.82 Long term (current) use of aspirin; Z79.899 Other long term (current) drug therapy

== ENCOUNTER 2017-04-03 13:45 | Outpatient (CLI) | payer MEDICARE, MEDICAID ==
[~2017-04-03] VITALS: Ht 162.6 cm; Wt 159.1 kg
[~2017-04-03 13:45] MED LIST changes: -SODIUM CHLORIDE 0.9% INJ 10 ML SYR IV PRN
[2017-04-03] MEDS ORDERED: SODIUM CHLORIDE 0.9% INJ 10 ML SYR IV PRN (14:15)
[2017-04-03 14:24] LABS: MEAN CORPUSCULAR HEMOGLOBIN 28.1 pg (27.0-33.0); PLATELET COUNT, AUTOMATED 187 10^3/uL (150-450); RED CELL DISTRIBUTION WIDTH 14.3 % (11.5-14.5); WHITE BLOOD COUNT 5.9 10^3/uL (4.0-10.0)
[2017-04-03 14:42] LABS: ERYTHROCYTE SEDIMENTATION RATE 16 mm/hr (0-30)
[2017-04-03 15:03] LABS: ANION GAP 6 MEQ/L (8-16); BLOOD UREA NITROGEN 15 MG/DL (7-18); CALCIUM LEVEL 9.3 MG/DL (8.8-10.2); CARBON DIOXIDE LEVEL 29 MEQ/L (21-32); CHLORIDE LEVEL 106 MEQ/L (98-107); GLOMERULAR FILTRATION RATE > 60.0 (>45); GLUCOSE, FASTING 93 MG/DL (80-110); POTASSIUM SERUM 4.1 MEQ/L (3.5-5.1); SODIUM LEVEL 141 MEQ/L (136-145)
[2017-04-03] MEDS ORDERED: SODIUM CHLORIDE 0.9% INJ 10 ML SYR IV SCH (18:00)
== END 2017-04-03 14:55 | disposition home or self-care (01) ==
LOC: M INFU 13:45
PROVIDERS: ATTEND Internal Medicine Infectious Disease
DX: A49.8 Other bacterial infections of unspecified site (principal); Z96.9 Presence of functional implant, unspecified; Z79.899 Other long term (current) drug therapy; Z79.82 Long term (current) use of aspirin; Z79.2 Long term (current) use of antibiotics; Z79.891 Long term (current) use of opiate analgesic; Z88.1 Allergy status to other antibiotic agents; Z88.2 Allergy status to sulfonamides

== ENCOUNTER 2017-04-10 13:47 | Outpatient (CLI) | payer MEDICARE, MEDICAID ==
[~2017-04-10 13:47] MED LIST changes: +SODIUM CHLORIDE 0.9% INJ 10 ML SYR IV PRN
[2017-04-10 14:34] LABS: MEAN CORPUSCULAR HEMOGLOBIN 28.1 pg (27.0-33.0); MEAN CORPUSCULAR HGB CONC 31.8 g/dl (32.0-36.5); MEAN CORPUSCULAR VOLUME 88.5 fl (80.0-96.0); PLATELET COUNT, AUTOMATED 190 10^3/uL (150-450); RED CELL DISTRIBUTION WIDTH 14.2 % (11.5-14.5); WHITE BLOOD COUNT 5.8 10^3/uL (4.0-10.0)
[2017-04-10 14:55] LABS: ANION GAP 5 MEQ/L (8-16); BLOOD UREA NITROGEN 12 MG/DL (7-18); CALCIUM LEVEL 9.1 MG/DL (8.8-10.2); CARBON DIOXIDE LEVEL 31 MEQ/L (21-32); CHLORIDE LEVEL 105 MEQ/L (98-107); CREATININE FOR GFR 0.89 MG/DL (0.55-1.02); GLOMERULAR FILTRATION RATE > 60.0 (>45); GLUCOSE, FASTING 104 MG/DL (80-110); POTASSIUM SERUM 4.5 MEQ/L (3.5-5.1); SODIUM LEVEL 141 MEQ/L (136-145)
[2017-04-10 15:33] LABS: ERYTHROCYTE SEDIMENTATION RATE 20 mm/hr (0-30)
[2017-04-10] MEDS ORDERED: SODIUM CHLORIDE 0.9% INJ 10 ML SYR IV SCH (18:00)
== END 2017-04-10 14:45 | disposition home or self-care (01) ==
LOC: M INFU 13:47
PROVIDERS: ATTEND Internal Medicine Infectious Disease
DX: A49.8 Other bacterial infections of unspecified site (principal); Z96.653 Presence of artificial knee joint, bilateral; Z98.84 Bariatric surgery status; Z96.611 Presence of right artificial shoulder joint; Z88.5 Allergy status to narcotic agent; Z88.1 Allergy status to other antibiotic agents; Z88.2 Allergy status to sulfonamides; Z88.8 Allergy status to other drugs, medicaments and biological substances; Z79.82 Long term (current) use of aspirin; Z79.899 Other long term (current) drug therapy

== ENCOUNTER 2017-04-17 13:49 | Outpatient (CLI) | payer MEDICARE, MEDICAID ==
[~2017-04-17 13:49] MED LIST changes: -SODIUM CHLORIDE 0.9% INJ 10 ML SYR IV PRN
[2017-04-17] MEDS ORDERED: SODIUM CHLORIDE 0.9% INJ 10 ML SYR IV PRN (14:00)
[2017-04-17 14:31] LABS: MEAN CORPUSCULAR HEMOGLOBIN 28.5 pg (27.0-33.0); PLATELET COUNT, AUTOMATED 189 10^3/uL (150-450); RED CELL DISTRIBUTION WIDTH 14.2 % (11.5-14.5); WHITE BLOOD COUNT 5.7 10^3/uL (4.0-10.0)
[2017-04-17 15:07] LABS: CALCIUM LEVEL 9.3 MG/DL (8.8-10.2); CREATININE FOR GFR 1.09 MG/DL (0.55-1.02); GLOMERULAR FILTRATION RATE 54.3 (>45); POTASSIUM SERUM 4.1 MEQ/L (3.5-5.1)
[2017-04-17 15:26] LABS: ERYTHROCYTE SEDIMENTATION RATE 23 mm/hr (0-30)
[2017-04-17] MEDS ORDERED: SODIUM CHLORIDE 0.9% INJ 10 ML SYR IV SCH (18:00)
== END 2017-04-17 14:30 | disposition home or self-care (01) ==
LOC: M INFU 13:49
PROVIDERS: ATTEND Internal Medicine Infectious Disease
DX: A49.8 Other bacterial infections of unspecified site (principal); D64.9 Anemia, unspecified; E05.00 Thyrotoxicosis with diffuse goiter without thyrotoxic crisis or storm; M54.9 Dorsalgia, unspecified; M25.519 Pain in unspecified shoulder; M19.90 Unspecified osteoarthritis, unspecified site; Z86.59 Personal history of other mental and behavioral disorders; Z87.442 Personal history of urinary calculi; Z98.84 Bariatric surgery status; Z79.899 Other long term (current) drug therapy; Z88.1 Allergy status to other antibiotic agents; Z88.2 Allergy status to sulfonamides; Z88.8 Allergy status to other drugs, medicaments and biological substances

== ENCOUNTER → 2017-04-20 | Outpatient (CLI) | payer MEDICARE, MEDICAID ==
[~2017-04-20] MED LIST changes: -/LINE60TA PO; -/MOXI40TA OR; -/ONDA4TA OR; -ACET500C OR; -ACET50TA PO; -ACIDOPHILLUS PO; -ASPI1TAB PO; -BUPR300T34 PO; -BUSP30TA PO; -CALC600T7 PO; -CALCTAB75 PO; -CEPH500C PO; -CIPR500T4 OR; -CLON0.3T PO; -CYCL10TA PO; -DETR4CAP OR; -DILA2TAB OR; -DOXY100T OR; -DOXY150C PO; -DULO1CAP3 PO; -DULO30CA PO; -FERR325T3 PO; -FLAG500T PO; -FLUC100T; -FOLI1TAB4 PO; -HYDR-3713 PO; -HYDR25TA6; -IBUP600T OR; -LEVA1TAB PO; -MACRODANTIN OR; -MAGN1CAP PO; -MAGN500T5 PO; -MUCINEX PO; -Motrin PO; -NORC1TAB4 PO; -NYST1POW9; -OXAY1TAB; -OXYC1TAB23 PO; -Ondansetron PO; -PERC5TAB8 OR; -PRED10TA2 OR; +PROPOFOL 200 MG/20 ML VIAL As Ordered; -Percocet PO; -REQU5TAB PO; -ROPI5TAB; -SUMA4INJ4; -TYLE325T5 PO; -TYLENOL #3 OR; -VICO5TAB OR; -VITA200015 PO; -VITA500C PO; -VITA500C10 PO; -VITA500T3 PO; -WELLTAB38 PO; -WELLTAB40; -ZOFR8TAB4 SL; -[UNRECOGNIZED DRUG - OTHER]; -cipro OR
== END ==
LOC: M INFU 14:00
DX: Z53.9 Procedure and treatment not carried out, unspecified reason (principal)

== ENCOUNTER → 2017-04-21 | Outpatient (CLI) | payer MEDICARE, MEDICAID ==
[~2017-04-21] MED LIST changes: +/LINE60TA PO; +/MOXI40TA OR; +/ONDA4TA OR; +ACET500C OR; +ACET50TA PO; +ACIDOPHILLUS PO; +ASPI1TAB PO; +BUPR300T34 PO; +BUSP30TA PO; +CALC600T7 PO; +CALCTAB75 PO; +CEPH500C PO; +CIPR500T4 OR; +CLON0.3T PO; +CYCL10TA PO; +DETR4CAP OR; +DILA2TAB OR; +DOXY100T OR; +DOXY150C PO; +DULO1CAP3 PO; +DULO30CA PO; +FERR325T3 PO; +FLAG500T PO; +FLUC100T; +FOLI1TAB4 PO; +HYDR-3713 PO; +HYDR25TA6; +IBUP600T OR; +LEVA1TAB PO; +MACRODANTIN OR; +MAGN1CAP PO; +MAGN500T5 PO; +MUCINEX PO; +Motrin PO; +NORC1TAB4 PO; +NYST1POW9; +OXAY1TAB; +OXYC1TAB23 PO; +Ondansetron PO; +PERC5TAB8 OR; +PRED10TA2 OR; -PROPOFOL 200 MG/20 ML VIAL As Ordered; +Percocet PO; +REQU5TAB PO; +ROPI5TAB; +SUMA4INJ4; +TYLE325T5 PO; +TYLENOL #3 OR; +VICO5TAB OR; +VITA200015 PO; +VITA500C PO; +VITA500C10 PO; +VITA500T3 PO; +WELLTAB38 PO; +WELLTAB40; +ZOFR8TAB4 SL; +[UNRECOGNIZED DRUG - OTHER]; +cipro OR
--- NOTE | 2017-04-21 11:02 | REP ---
MRI SHOULDER WITHOUT CONTRAST: 04/21/2017 CLINICAL HISTORY: Prior rotator cuff surgery for a tear injured 2 years ago. Previous total shoulder arthroplasty with prosthesis removed. Now with shoulder pain radiating to the elbow, numbness in right hand and fingers. Bacterial infection. COMPARISON: Chest x-ray 12/22/2016, 12/29/2015. TECHNIQUE: Sagittal fat suppressed T2, axial T2 MEDIC and fat suppressed T2 sequences with coronal T1 and fat suppressed T2 sequence provided. FINDINGS: The AC joint shows some hypertrophic spurring. There has been complete tear of the rotator cuff. There is severe atrophy of the supraspinatus muscle. There is a large fluid collection with resection of the humeral head and edema and increased T2 signal in the linear course of the proximal humeral shaft from the previous humeral stem component of that prosthesis. There are degenerative changes of the glenoid and irregularity of the soft tissue posteriorly in the glenohumeral joint, which may reflect some chronic debris and/or bursitis. There appears to be a tract leading to the skin anteriorly and superiorly at the shoulder from this collection. The coracoid shows no significant signal abnormality. The acromion shows no significant signal abnormality. Only trace edema in the AC joint. The deltoid muscle shows preserved thickness. The teres minor and infraspinatus tendons are seen with significant muscular atrophy, however. There is also significant atrophy in the subscapularis muscle. IMPRESSION: 1. Complete rotator cuff tear with resection of the humeral head, removal of prior total shoulder prosthesis with postprocedure changes in the proximal humeral shaft and the glenoid. 2. Advanced atrophy of the subscapularis, infraspinatus and teres minor, even worse for the supraspinatus muscle. 3. Large fluid collection at the joint and a tract to the skin anteriorly. Micrometallic magnetic susceptibility artifacts along that tract and about the former joint. Extensive debris and abnormal soft tissue density in the joint that may be bursitis. Signed by Eliezer Mcbride MD 04/21/2017 06:45 P
== END ==
LOC: M PLARAD 08:12
PROVIDERS: ATTEND Internal Medicine Infectious Disease
DX: A49.8 Other bacterial infections of unspecified site (principal)

== ENCOUNTER 2017-04-24 13:49 | Outpatient (CLI) | payer MEDICARE, MEDICAID ==
[~2017-04-24] VITALS: Ht 162.6 cm; Wt 159.0 kg
[2017-04-24] MEDS ORDERED: SODIUM CHLORIDE 0.9% INJ 10 ML SYR IV PRN (14:00)
[2017-04-24 14:16] LABS: MEAN CORPUSCULAR HEMOGLOBIN 28.3 pg (27.0-33.0); MEAN CORPUSCULAR HGB CONC 32.1 g/dl (32.0-36.5); MEAN CORPUSCULAR VOLUME 88.2 fl (80.0-96.0); PLATELET COUNT, AUTOMATED 188 10^3/uL (150-450); RED CELL DISTRIBUTION WIDTH 13.6 % (11.5-14.5); WHITE BLOOD COUNT 6.6 10^3/uL (4.0-10.0)
[2017-04-24 14:37] LABS: ANION GAP 6 MEQ/L (8-16); BLOOD UREA NITROGEN 14 MG/DL (7-18); CALCIUM LEVEL 8.8 MG/DL (8.8-10.2); CARBON DIOXIDE LEVEL 29 MEQ/L (21-32); CHLORIDE LEVEL 106 MEQ/L (98-107); CREATININE FOR GFR 0.92 MG/DL (0.55-1.02); GLOMERULAR FILTRATION RATE > 60.0 (>45); GLUCOSE, FASTING 92 MG/DL (80-110); POTASSIUM SERUM 4.2 MEQ/L (3.5-5.1); SODIUM LEVEL 141 MEQ/L (136-145)
[2017-04-24 14:40] LABS: ERYTHROCYTE SEDIMENTATION RATE 19 mm/hr (0-30)
[2017-04-24] MEDS ORDERED: SODIUM CHLORIDE 0.9% INJ 10 ML SYR IV SCH (18:00)
== END 2017-04-24 14:40 | disposition home or self-care (01) ==
LOC: M INFU 13:49
PROVIDERS: ATTEND Internal Medicine Infectious Disease
DX: T84.7XXD Infection and inflammatory reaction due to other internal orthopedic prosthetic devices, implants and grafts, subsequent encounter (principal); Z96.653 Presence of artificial knee joint, bilateral; Z96.611 Presence of right artificial shoulder joint; Z98.84 Bariatric surgery status; Z88.5 Allergy status to narcotic agent; Z88.8 Allergy status to other drugs, medicaments and biological substances; Z88.2 Allergy status to sulfonamides; Z88.1 Allergy status to other antibiotic agents; Z79.82 Long term (current) use of aspirin; Z79.2 Long term (current) use of antibiotics; Z79.899 Other long term (current) drug therapy

== ENCOUNTER 2017-05-01 13:53 | Outpatient (CLI) | payer MEDICARE, MEDICAID ==
[~2017-05-01] VITALS: Ht 162.6 cm; Wt 159.0 kg
[~2017-05-01 13:53] MED LIST changes: +SODIUM CHLORIDE 0.9% INJ 10 ML SYR IV PRN
[2017-05-01 14:43] LABS: MEAN CORPUSCULAR HEMOGLOBIN 27.9 pg (27.0-33.0); MEAN CORPUSCULAR HGB CONC 31.7 g/dl (32.0-36.5); PLATELET COUNT, AUTOMATED 180 10^3/uL (150-450); RED CELL DISTRIBUTION WIDTH 13.6 % (11.5-14.5); WHITE BLOOD COUNT 6.7 10^3/uL (4.0-10.0)
[2017-05-01 15:15] LABS: ANION GAP 9 MEQ/L (8-16); BLOOD UREA NITROGEN 12 MG/DL (7-18); CALCIUM LEVEL 8.5 MG/DL (8.8-10.2); CARBON DIOXIDE LEVEL 26 MEQ/L (21-32); CHLORIDE LEVEL 108 MEQ/L (98-107); CREATININE FOR GFR 0.93 MG/DL (0.55-1.02); GLOMERULAR FILTRATION RATE > 60.0 (>45); GLUCOSE, FASTING 129 MG/DL (80-110); SODIUM LEVEL 143 MEQ/L (136-145)
[2017-05-01 15:21] LABS: ERYTHROCYTE SEDIMENTATION RATE 27 mm/hr (0-30)
[2017-05-01] MEDS ORDERED: SODIUM CHLORIDE 0.9% INJ 10 ML SYR IV SCH (18:00)
== END 2017-05-01 14:45 | disposition home or self-care (01) ==
LOC: M INFU 13:53
PROVIDERS: ATTEND Internal Medicine Infectious Disease
DX: T84.7XXD Infection and inflammatory reaction due to other internal orthopedic prosthetic devices, implants and grafts, subsequent encounter (principal); Z96.653 Presence of artificial knee joint, bilateral; Z96.611 Presence of right artificial shoulder joint; Z98.84 Bariatric surgery status; Z88.2 Allergy status to sulfonamides; Z88.1 Allergy status to other antibiotic agents; Z88.5 Allergy status to narcotic agent; Z88.8 Allergy status to other drugs, medicaments and biological substances; Z79.2 Long term (current) use of antibiotics; Z79.82 Long term (current) use of aspirin; Z79.899 Other long term (current) drug therapy

== ENCOUNTER 2017-05-03 15:54 | Outpatient (CLI) | payer MEDICARE, MEDICAID ==
[~2017-05-03 15:54] MED LIST changes: -SODIUM CHLORIDE 0.9% INJ 10 ML SYR IV PRN
[2017-05-09] MEDS ORDERED: DULO30CA PO (13:35)
[2017-05-09] MEDS ORDERED: TRIA1OI TOP (15:57)
== END 2017-05-03 16:15 | disposition home or self-care (01) ==
LOC: M INFU 15:54
PROVIDERS: ATTEND Internal Medicine Infectious Disease
DX: A49.8 Other bacterial infections of unspecified site (principal); T84.7XXD Infection and inflammatory reaction due to other internal orthopedic prosthetic devices, implants and grafts, subsequent encounter; Z79.82 Long term (current) use of aspirin; Z79.899 Other long term (current) drug therapy; Z88.1 Allergy status to other antibiotic agents; Z88.2 Allergy status to sulfonamides; Z88.8 Allergy status to other drugs, medicaments and biological substances

== ENCOUNTER 2017-05-09 13:15 | Emergency (ER) | payer MEDICARE, MEDICAID ==
[2017-05-09 16:21] LABS: BASO # 0.1 10^3/uL (0.0-0.2); BASO % 0.5 % (0.0-1.0); EOS # 0.2 10^3/uL (0.0-0.50); EOS % 1.5 % (0.0-3.0); IMMATURE GRANULOCYTE % 0.4 % (0-0); LYMPH # 1.9 10^3/uL (1.5-4.5); LYMPH % 19.3 % (24.0-44.0); MEAN CORPUSCULAR HEMOGLOBIN 27.7 pg (27.0-33.0); MEAN CORPUSCULAR HGB CONC 31.6 g/dl (32.0-36.5); MEAN CORPUSCULAR VOLUME 87.8 fl (80.0-96.0); MONO # 0.9 10^3/uL (0.0-0.8); MONO % 9.2 % (0.0-5.0); NEUTROPHILS # 6.9 10^3/uL (1.8-7.7); NEUTROPHILS % 69.1 % (36.0-66.0); PLATELET COUNT, AUTOMATED 225 10^3/uL (150-450); RED CELL DISTRIBUTION WIDTH 13.2 % (11.5-14.5)
== END 2017-05-09 16:11 | disposition home or self-care (01) ==
LOC: M ED 13:15
DX: L25.9 Unspecified contact dermatitis, unspecified cause (principal); Z79.899 Other long term (current) drug therapy; Z79.82 Long term (current) use of aspirin; Z88.0 Allergy status to penicillin; Z88.1 Allergy status to other antibiotic agents; Z88.2 Allergy status to sulfonamides; Z88.8 Allergy status to other drugs, medicaments and biological substances
CPT/HCPCS: 93971

== ENCOUNTER 2017-05-12 18:25 | Emergency (ER) | payer MEDICARE, MEDICAID ==
[2017-05-12 19:56] LABS: BASO % 0.4 % (0.0-1.0); EOS # 0.1 10^3/uL (0.0-0.50); EOS % 1.4 % (0.0-3.0); IMMATURE GRANULOCYTE # 0.1 10^3/uL (0-0); IMMATURE GRANULOCYTE % 0.7 % (0-0); LYMPH # 2.7 10^3/uL (1.5-4.5); MEAN CORPUSCULAR HEMOGLOBIN 27.7 pg (27.0-33.0); MEAN CORPUSCULAR VOLUME 86.6 fl (80.0-96.0); MONO # 0.8 10^3/uL (0.0-0.8); MONO % 8.1 % (0.0-5.0); NEUTROPHILS # 6.4 10^3/uL (1.8-7.7); NEUTROPHILS % 62.4 % (36.0-66.0); PLATELET COUNT, AUTOMATED 264 10^3/uL (150-450); RED CELL DISTRIBUTION WIDTH 13.2 % (11.5-14.5); WHITE BLOOD COUNT 10.2 10^3/uL (4.0-10.0)
[2017-05-12] MEDS: LINEZOLID 600MG TABLET (ZYVOX) PO (20:07)
[2017-05-12 20:17] LABS: ALBUMIN 3.7 GM/DL (3.2-5.2); ALKALINE PHOSPHATASE 123 U/L (45-117); ALT/SGPT 21 U/L (12-78); ANION GAP 6 MEQ/L (8-16); AST/SGOT 19 U/L (7-37); BILIRUBIN,TOTAL 0.5 MG/DL (0.2-1.0); BLOOD UREA NITROGEN 14 MG/DL (7-18); CALCIUM LEVEL 9.1 MG/DL (8.8-10.2); CARBON DIOXIDE LEVEL 31 MEQ/L (21-32); CHLORIDE LEVEL 105 MEQ/L (98-107); CREATININE FOR GFR 0.86 MG/DL (0.55-1.02); GLOMERULAR FILTRATION RATE > 60.0 (>45); GLUCOSE, FASTING 102 MG/DL (80-110); POTASSIUM SERUM 4.1 MEQ/L (3.5-5.1); SODIUM LEVEL 142 MEQ/L (136-145); TOTAL PROTEIN 7.4 GM/DL (6.4-8.2)
[2017-05-12 20:23] LABS: ERYTHROCYTE SEDIMENTATION RATE 62 mm/hr (0-30)
[2017-05-12] MEDS: methylPREDNISolone INJ 125 MG/2 ML VIAL (J2930) IV (20:59)
[2017-05-12] MEDS: NORCO 5/325MG TABLET (BULK FOR ED) PO (20:59)
[2017-05-12] MEDS: cefTRIAXone SOD 1 GM VIAL (J0696) IM (21:00)
[2017-05-12] MEDS ORDERED: LIDOCAINE 1% MDV 20ML VIAL As Ordered (21:04)
== END 2017-05-12 21:23 | disposition home or self-care (01) ==
LOC: M ED 18:25
DX: M10.9 Gout, unspecified (principal); B95.2 Enterococcus as the cause of diseases classified elsewhere; F43.10 Post-traumatic stress disorder, unspecified; E66.8 Other obesity; Z87.442 Personal history of urinary calculi; Z79.899 Other long term (current) drug therapy; Z79.82 Long term (current) use of aspirin; Z88.0 Allergy status to penicillin; Z88.1 Allergy status to other antibiotic agents; Z88.2 Allergy status to sulfonamides; Z88.8 Allergy status to other drugs, medicaments and biological substances
CPT/HCPCS: J0696

== ENCOUNTER → 2017-05-16 | Outpatient (REF) | payer MEDICARE, MEDICAID ==
[2017-05-16 10:41] LABS: BASO % 0.1 % (0.0-1.0); EOS % 0.1 % (0.0-3.0); HEMATOCRIT 41.5 % (36.0-47.0); HEMOGLOBIN 13.1 g/dl (12.0-16.0); IMMATURE GRANULOCYTE # 0.2 10^3/uL (0-0); LYMPH # 2.5 10^3/uL (1.5-4.5); LYMPH % 23.8 % (24.0-44.0); MEAN CORPUSCULAR HEMOGLOBIN 27.2 pg (27.0-33.0); MEAN CORPUSCULAR HGB CONC 31.6 g/dl (32.0-36.5); MEAN CORPUSCULAR VOLUME 86.3 fl (80.0-96.0); MONO # 0.7 10^3/uL (0.0-0.8); MONO % 6.8 % (0.0-5.0); NEUTROPHILS # 7.1 10^3/uL (1.8-7.7); NEUTROPHILS % 67.2 % (36.0-66.0); PLATELET COUNT, AUTOMATED 290 10^3/uL (150-450); RED BLOOD COUNT 4.81 10^6/uL (4.00-5.40); RED CELL DISTRIBUTION WIDTH 13.1 % (11.5-14.5); WHITE BLOOD COUNT 10.5 10^3/uL (4.0-10.0)
[2017-05-16 11:39] LABS: ERYTHROCYTE SEDIMENTATION RATE 29 mm/hr (0-30)
== END ==
LOC: M SFHCPLAZ 09:20
DX: T82.7XXD Infection and inflammatory reaction due to other cardiac and vascular devices, implants and grafts, subsequent encounter (principal)
CPT/HCPCS: 86140

== ENCOUNTER → 2017-05-30 | Outpatient (REF) | payer MEDICARE, MEDICAID ==
[2017-05-30 16:21] LABS: C REACTIVE PROTEIN QUANTITATIV 0.37 MG/DL (0.00-0.30)
[2017-05-30 16:27] LABS: ANION GAP 8 MEQ/L (8-16); BLOOD UREA NITROGEN 15 MG/DL (7-18); CALCIUM LEVEL 8.6 MG/DL (8.8-10.2); CARBON DIOXIDE LEVEL 27 MEQ/L (21-32); CHLORIDE LEVEL 106 MEQ/L (98-107); CHOLESTEROL LEVEL 181 MG/DL (<200); CHOLESTEROL RISK RATIO 2.513 (<5); CREATININE FOR GFR 0.88 MG/DL (0.55-1.02); GLOMERULAR FILTRATION RATE > 60.0 (>45); GLUCOSE, FASTING 87 MG/DL (80-110); HDL CHOLESTEROL 72 MG/DL (>40); NON-HDL-C 109 MG/DL; POTASSIUM SERUM 4.4 MEQ/L (3.5-5.1); SODIUM LEVEL 141 MEQ/L (136-145); TRIGLYCERIDES LEVEL 190 MG/DL (<150)
[2017-05-30 16:33] LABS: FREE T4 1.03 NG/DL (0.76-1.46)
[2017-05-30 17:02] LABS: BASO % 0.5 % (0.0-1.0); EOS # 0.1 10^3/uL (0.0-0.50); EOS % 1.4 % (0.0-3.0); HEMATOCRIT 41.4 % (36.0-47.0); HEMOGLOBIN 12.9 g/dl (12.0-16.0); IMMATURE GRANULOCYTE % 0.2 % (0-0); LYMPH # 2.4 10^3/uL (1.5-4.5); LYMPH % 37.2 % (24.0-44.0); MEAN CORPUSCULAR HEMOGLOBIN 27.5 pg (27.0-33.0); MEAN CORPUSCULAR HGB CONC 31.2 g/dl (32.0-36.5); MEAN CORPUSCULAR VOLUME 88.3 fl (80.0-96.0); MONO # 0.7 10^3/uL (0.0-0.8); MONO % 10.1 % (0.0-5.0); NEUTROPHILS # 3.3 10^3/uL (1.8-7.7); NEUTROPHILS % 50.6 % (36.0-66.0); PLATELET COUNT, AUTOMATED 133 10^3/uL (150-450); RED BLOOD COUNT 4.69 10^6/uL (4.00-5.40); RED CELL DISTRIBUTION WIDTH 14.5 % (11.5-14.5); WHITE BLOOD COUNT 6.4 10^3/uL (4.0-10.0)
[2017-05-30 18:32] LABS: ERYTHROCYTE SEDIMENTATION RATE 12 mm/hr (0-30)
== END ==
LOC: M SFHCPLAZ 10:43
DX: T82.7XXD Infection and inflammatory reaction due to other cardiac and vascular devices, implants and grafts, subsequent encounter (principal); A49.8 Other bacterial infections of unspecified site; T84.7XXD Infection and inflammatory reaction due to other internal orthopedic prosthetic devices, implants and grafts, subsequent encounter; I10 Essential (primary) hypertension; N20.0 Calculus of kidney; E66.01 Morbid (severe) obesity due to excess calories; M54.5 Low back pain; M10.9 Gout, unspecified; Z68.43 Body mass index [BMI] 50.0-59.9, adult
CPT/HCPCS: 84443

== ENCOUNTER 2017-06-05 10:56 | Emergency (ER) | payer MEDICARE, MEDICAID ==
[2017-06-05 12:28] LABS: KETONE, URINE AUTO RFX NEGATIVE (NEGATIVE); LEUKOCYTE ESTERASE UR AUTO RFX NEGATIVE (NEGATIVE); MUCUS, URINE RFX SMALL (NEGATIVE); NITRITE, URINE AUTO RFX NEGATIVE (NEGATIVE); RBC, URINE AUTO RFX 2 /HPF (0-3); SQUAM EPITHELIAL CELL UR AURFX 1 /HPF (0-6); WBC, URINE AUTO RFX 2 /HPF (0-3)
[2017-06-05] MEDS: KETOROLAC 60 MG/2 ML VIAL (J1885) IM (14:15)
[2017-06-05] MEDS: KETOROLAC 30 MG/ML VIAL (J1885) IV (14:56)
[2017-06-05 14:58] LABS: BASO % 0.3 % (0.0-1.0); EOS # 0.1 10^3/uL (0.0-0.50); EOS % 1.2 % (0.0-3.0); HEMATOCRIT 38.2 % (36.0-47.0); HEMOGLOBIN 12.1 g/dl (12.0-16.0); IMMATURE GRANULOCYTE % 0.1 % (0-0); LYMPH # 1.5 10^3/uL (1.5-4.5); LYMPH % 21.3 % (24.0-44.0); MEAN CORPUSCULAR HEMOGLOBIN 27.6 pg (27.0-33.0); MEAN CORPUSCULAR HGB CONC 31.7 g/dl (32.0-36.5); MEAN CORPUSCULAR VOLUME 87.2 fl (80.0-96.0); MONO # 0.7 10^3/uL (0.0-0.8); MONO % 10.3 % (0.0-5.0); NEUTROPHILS # 4.6 10^3/uL (1.8-7.7); NEUTROPHILS % 66.8 % (36.0-66.0); PLATELET COUNT, AUTOMATED 132 10^3/uL (150-450); RED BLOOD COUNT 4.38 10^6/uL (4.00-5.40); RED CELL DISTRIBUTION WIDTH 14.9 % (11.5-14.5); WHITE BLOOD COUNT 6.8 10^3/uL (4.0-10.0)
[2017-06-05 15:16] LABS: ANION GAP 6 MEQ/L (8-16); BLOOD UREA NITROGEN 12 MG/DL (7-18); CARBON DIOXIDE LEVEL 30 MEQ/L (21-32); CHLORIDE LEVEL 103 MEQ/L (98-107); CREATININE FOR GFR 0.76 MG/DL (0.55-1.02); GLOMERULAR FILTRATION RATE > 60.0 (>45); GLUCOSE, FASTING 86 MG/DL (70-100); POTASSIUM SERUM 4.2 MEQ/L (3.5-5.1); SODIUM LEVEL 139 MEQ/L (136-145)
[2017-06-05] MEDS: METHOCARBAMOL 500 MG TAB PO (15:53)
[2017-06-05] MEDS: NORCO, ANEXSIA 5/325MG TABLET (HYDROcodone/ACETAMINOPHEN) PO (15:53)
== END 2017-06-05 16:04 | disposition home or self-care (01) ==
LOC: M ED 10:56
DX: M62.830 Muscle spasm of back (principal)
CPT/HCPCS: J1885

== ENCOUNTER → 2017-06-07 | Outpatient (CLI) | payer MEDICARE, MEDICAID ==
[~2017-06-07] MED LIST changes: -/LINE60TA PO; -/MOXI40TA OR; -/ONDA4TA OR; -ACET500C OR; -ACET50TA PO; -ACIDOPHILLUS PO; -ASPI1TAB PO; -BUPR300T34 PO; -BUSP30TA PO; -CALC600T7 PO; -CALCTAB75 PO; -CEPH500C PO; -CIPR500T4 OR; -CLON0.3T PO; -CYCL10TA PO; -DETR4CAP OR; -DILA2TAB OR; -DOXY100T OR; -DOXY150C PO; -DULO1CAP3 PO; -DULO30CA PO; -FERR325T3 PO; -FLAG500T PO; -FLUC100T; -FOLI1TAB4 PO; -HYDR-3713 PO; -HYDR25TA6; -IBUP600T OR; -LEVA1TAB PO; +LIDOCAINE 1% MDV 20ML VIAL As Ordered; -MACRODANTIN OR; -MAGN1CAP PO; -MAGN500T5 PO; -MUCINEX PO; -Motrin PO; -NORC1TAB4 PO; -NYST1POW9; -OXAY1TAB; -OXYC1TAB23 PO; -Ondansetron PO; -PERC5TAB8 OR; -PRED10TA2 OR; -Percocet PO; -REQU5TAB PO; -ROPI5TAB; -SUMA4INJ4; -TYLE325T5 PO; -TYLENOL #3 OR; -VICO5TAB OR; -VITA200015 PO; -VITA500C PO; -VITA500C10 PO; -VITA500T3 PO; -WELLTAB38 PO; -WELLTAB40; -ZOFR8TAB4 SL; -[UNRECOGNIZED DRUG - OTHER]; -cipro OR
[2017-06-07 14:21] LABS: APPEARANCE, BODY FLUID CLOUDY (CLEAR); BF DIFF IF INDICATED? YES (NO); BF MONONUCLEAR CELL % 81.9 % (0-0); BF POLYMORPHONUCLEAR CELL % 18.1 % (0-0); RBC BODY FLUID 10 10^3/uL (<2); SOURCE, BODY FLUID LT SHOULDER; SYNOVIAL FLUID COLOR YELLOW (YELLOW); WBC BODY FLUID 160 /uL (0-10)
== END ==
LOC: M RADPRO 12:15
DX: T84.7XXD Infection and inflammatory reaction due to other internal orthopedic prosthetic devices, implants and grafts, subsequent encounter (principal); T82.7XXD Infection and inflammatory reaction due to other cardiac and vascular devices, implants and grafts, subsequent encounter; A49.8 Other bacterial infections of unspecified site; Z88.1 Allergy status to other antibiotic agents; Z88.0 Allergy status to penicillin; Z88.8 Allergy status to other drugs, medicaments and biological substances; Z88.5 Allergy status to narcotic agent; Z88.2 Allergy status to sulfonamides; Z79.82 Long term (current) use of aspirin; Z79.899 Other long term (current) drug therapy
CPT/HCPCS: 10030

== ENCOUNTER 2017-06-10 13:52 | Emergency (ER) | payer MEDICARE, MEDICAID ==
[2017-06-10] MEDS: diphenhydrAMINE INJ 50MG/ML VIAL (J1200) IV (18:15)
[2017-06-10] MEDS: MORPHINE 4 MG/ML 1ML SYRINGE IV (18:15)
[2017-06-10] MEDS: ONDANSETRON 4 MG TAB (S0181) PO (18:15)
[2017-06-10] MEDS: BACLOFEN 10 MG TAB PO (19:21)
== END 2017-06-10 20:36 | disposition home or self-care (01) ==
LOC: M ED 13:52
DX: M47.27 Other spondylosis with radiculopathy, lumbosacral region (principal); M43.16 Spondylolisthesis, lumbar region; M16.12 Unilateral primary osteoarthritis, left hip; M54.30 Sciatica, unspecified side; G62.9 Polyneuropathy, unspecified; G43.909 Migraine, unspecified, not intractable, without status migrainosus; F43.10 Post-traumatic stress disorder, unspecified; Z98.84 Bariatric surgery status; Z87.442 Personal history of urinary calculi; Z88.8 Allergy status to other drugs, medicaments and biological substances; Z88.2 Allergy status to sulfonamides; Z88.1 Allergy status to other antibiotic agents; Z88.0 Allergy status to penicillin; Z79.899 Other long term (current) drug therapy; Z79.82 Long term (current) use of aspirin
CPT/HCPCS: J1200

== ENCOUNTER → 2017-06-15 | Outpatient (CLI) | payer MEDICARE, MEDICAID ==
[2017-06-15 18:26] LABS: C REACTIVE PROTEIN QUANTITATIV 7.39 MG/DL (0.00-0.30)
[2017-06-15 19:07] LABS: BASO % 0.4 % (0.0-1.0); EOS # 0.1 10^3/uL (0.0-0.50); EOS % 0.8 % (0.0-3.0); HEMATOCRIT 39.3 % (36.0-47.0); HEMOGLOBIN 12.2 g/dl (12.0-16.0); IMMATURE GRANULOCYTE % 0.5 % (0-0); LYMPH # 1.8 10^3/uL (1.5-4.5); LYMPH % 21.3 % (24.0-44.0); MEAN CORPUSCULAR HEMOGLOBIN 27.1 pg (27.0-33.0); MEAN CORPUSCULAR VOLUME 87.1 fl (80.0-96.0); MONO # 1.1 10^3/uL (0.0-0.8); MONO % 12.6 % (0.0-5.0); NEUTROPHILS # 5.5 10^3/uL (1.8-7.7); NEUTROPHILS % 64.4 % (36.0-66.0); PLATELET COUNT, AUTOMATED 272 10^3/uL (150-450); RED BLOOD COUNT 4.51 10^6/uL (4.00-5.40); RED CELL DISTRIBUTION WIDTH 14.9 % (11.5-14.5); WHITE BLOOD COUNT 8.5 10^3/uL (4.0-10.0)
[2017-06-15 19:42] LABS: ERYTHROCYTE SEDIMENTATION RATE 66 mm/hr (0-30)
[2017-06-15 19:52] LABS: APPEARANCE, URINE HAZY (CLEAR); BACTERIA, URINE AUTO 1+ (NEGATIVE); BILIRUBIN, URINE AUTO NEGATIVE (NEGATIVE); BLOOD, URINE BLOOD 1+ (NEGATIVE); CALCIUM OXALATE CRYSTALS SMALL; COLOR, URINE YELLOW (YELLOW); GLUCOSE, URINE (UA) AUTO NEGATIVE (NEGATIVE); KETONE, URINE AUTO NEGATIVE (NEGATIVE); LEUKOCYTE ESTERASE, URINE AUTO NEGATIVE (NEGATIVE); MUCUS, URINE SMALL (NEGATIVE); NITRITE, URINE AUTO NEGATIVE (NEGATIVE); PROTEIN, URINE AUTO NEGATIVE (NEGATIVE); RBC, URINE AUTO 3 /HPF (0-3); SPECIFIC GRAVITY URINE AUTO 1.017 (1.002-1.035); SQUAMOUS EPITHELIAL CELL UR AU 1 /HPF (0-6); WBC, URINE AUTO 4 /HPF (0-3)
== END ==
LOC: M LAB 16:01
DX: M54.5 Low back pain (principal); N20.0 Calculus of kidney; B95.2 Enterococcus as the cause of diseases classified elsewhere
CPT/HCPCS: 86140

== ENCOUNTER 2017-06-16 11:25 | Inpatient (IN) | payer MEDICARE, MEDICAID ==
[2017-06-16] MEDS: diphenhydrAMINE INJ 50MG/ML VIAL (J1200) IV (12:35)
[2017-06-16] MEDS: ONDANSETRON 4MG/2ML VIAL (J2405) IV (12:35)
[2017-06-16] MEDS: MORPHINE 4 MG/ML 1ML VIAL IV ×2 (12:36→13:25)
[2017-06-16 12:55] LABS: BASO % 0.3 % (0.0-1.0); EOS # 0.1 10^3/uL (0.0-0.50); EOS % 0.7 % (0.0-3.0); HEMATOCRIT 38.6 % (36.0-47.0); HEMOGLOBIN 12.1 g/dl (12.0-16.0); IMMATURE GRANULOCYTE # 0.1 10^3/uL (0-0); IMMATURE GRANULOCYTE % 0.8 % (0-0); LYMPH # 1.8 10^3/uL (1.5-4.5); LYMPH % 20.9 % (24.0-44.0); MEAN CORPUSCULAR HEMOGLOBIN 26.8 pg (27.0-33.0); MEAN CORPUSCULAR HGB CONC 31.3 g/dl (32.0-36.5); MEAN CORPUSCULAR VOLUME 85.6 fl (80.0-96.0); MONO # 1.1 10^3/uL (0.0-0.8); MONO % 12.7 % (0.0-5.0); NEUTROPHILS # 5.6 10^3/uL (1.8-7.7); NEUTROPHILS % 64.6 % (36.0-66.0); PLATELET COUNT, AUTOMATED 259 10^3/uL (150-450); RED BLOOD COUNT 4.51 10^6/uL (4.00-5.40); RED CELL DISTRIBUTION WIDTH 14.8 % (11.5-14.5); WHITE BLOOD COUNT 8.6 10^3/uL (4.0-10.0)
[2017-06-16 13:12] LABS: ALBUMIN 3.1 GM/DL (3.2-5.2); ALBUMIN/GLOBULIN RATIO 0.74 (1.00-1.93); ALKALINE PHOSPHATASE 118 U/L (45-117); ALT/SGPT 19 U/L (12-78); ANION GAP 7 MEQ/L (8-16); AST/SGOT 16 U/L (7-37); BILIRUBIN,TOTAL 0.4 MG/DL (0.2-1.0); BLOOD UREA NITROGEN 14 MG/DL (7-18); C REACTIVE PROTEIN QUANTITATIV 7.48 MG/DL (0.00-0.30); CALCIUM LEVEL 9.1 MG/DL (8.8-10.2); CARBON DIOXIDE LEVEL 28 MEQ/L (21-32); CHLORIDE LEVEL 105 MEQ/L (98-107); GLOMERULAR FILTRATION RATE > 60.0 (>45); GLUCOSE, FASTING 120 MG/DL (70-100); POTASSIUM SERUM 3.8 MEQ/L (3.5-5.1); SODIUM LEVEL 140 MEQ/L (136-145); TOTAL PROTEIN 7.3 GM/DL (6.4-8.2)
[2017-06-16 13:18] LABS: ERYTHROCYTE SEDIMENTATION RATE 77 mm/hr (0-30)
[2017-06-16] MEDS: HYDROmorphone HCL 1 MG/ML SYRINGE (J1170) IV ×2 (14:01→15:40)
[2017-06-16] MEDS ORDERED: DAPTOmycin 500 MG/10 ML VIAL (CUBICIN) (J0878) IV (14:15)
[2017-06-16] MEDS: DAPTOmycin 1,000 MG in NS 50 ML IV (15:19)
[2017-06-16] MEDS ORDERED: PERCOCET 5MG/325MG TAB PO (15:30)
[2017-06-16 16:35] LABS: C REACTIVE PROTEIN QUANTITATIV 6.21 MG/DL (0.00-0.30)
[2017-06-16] MEDS: MORPHINE 2 MG/ML 1ML SYRINGE IV ×2 (18:24→22:00)
[2017-06-16] MEDS: NS 500 ML IV (19:54)
[2017-06-16] MEDS: PERCOCET 5MG/325MG TAB PO (20:03)
[2017-06-16] MEDS: DOCUSATE SODIUM 100 MG CAP PO (22:00)
[2017-06-16] MEDS: NS 1,000 ML IV (22:29)
[2017-06-17] MEDS: MORPHINE 2 MG/ML 1ML SYRINGE IV ×6 (04:17→21:13)
[2017-06-17 06:33] LABS: BASO % 0.5 % (0.0-1.0); EOS # 0.1 10^3/uL (0.0-0.50); EOS % 1.9 % (0.0-3.0); HEMATOCRIT 34.4 % (36.0-47.0); HEMOGLOBIN 10.7 g/dl (12.0-16.0); IMMATURE GRANULOCYTE % 0.4 % (0-0); LYMPH # 1.9 10^3/uL (1.5-4.5); LYMPH % 25.5 % (24.0-44.0); MEAN CORPUSCULAR HEMOGLOBIN 27.2 pg (27.0-33.0); MEAN CORPUSCULAR HGB CONC 31.1 g/dl (32.0-36.5); MEAN CORPUSCULAR VOLUME 87.3 fl (80.0-96.0); MONO % 12.9 % (0.0-5.0); NEUTROPHILS # 4.4 10^3/uL (1.8-7.7); NEUTROPHILS % 58.8 % (36.0-66.0); PLATELET COUNT, AUTOMATED 204 10^3/uL (150-450); RED BLOOD COUNT 3.94 10^6/uL (4.00-5.40); RED CELL DISTRIBUTION WIDTH 14.7 % (11.5-14.5); WHITE BLOOD COUNT 7.5 10^3/uL (4.0-10.0)
[2017-06-17 06:55] LABS: ALBUMIN 2.8 GM/DL (3.2-5.2); ALKALINE PHOSPHATASE 96 U/L (45-117); ALT/SGPT 15 U/L (12-78); ANION GAP 6 MEQ/L (8-16); AST/SGOT 11 U/L (7-37); BILIRUBIN,TOTAL 0.3 MG/DL (0.2-1.0); BLOOD UREA NITROGEN 13 MG/DL (7-18); CALCIUM LEVEL 8.6 MG/DL (8.8-10.2); CARBON DIOXIDE LEVEL 29 MEQ/L (21-32); CHLORIDE LEVEL 107 MEQ/L (98-107); CREATININE FOR GFR 0.83 MG/DL (0.55-1.30); GLOMERULAR FILTRATION RATE > 60.0 (>45); GLUCOSE, FASTING 105 MG/DL (70-100); POTASSIUM SERUM 4.2 MEQ/L (3.5-5.1); SODIUM LEVEL 142 MEQ/L (136-145); TOTAL PROTEIN 6.3 GM/DL (6.4-8.2)
[2017-06-17 07:25] LABS: ERYTHROCYTE SEDIMENTATION RATE 59 mm/hr (0-30)
[2017-06-17] MEDS: DOCUSATE SODIUM 100 MG CAP PO ×2 (08:32→21:14)
[2017-06-17] MEDS: PERCOCET 5MG/325MG TAB PO ×3 (08:32→23:48)
[2017-06-17] MEDS: ENOXAPARIN 40 MG/0.4 ML SYRINGE (J1650) SC (08:33)
[2017-06-17] MEDS: LORazepam 2 MG/ML VIAL (J2060) IV (08:35)
[2017-06-17] MEDS ORDERED: GENTAMICIN 140 MG in D5W 50 ML IV (16:00)
[2017-06-17] MEDS: DAPTOmycin 1,000 MG in NS 50 ML IV (16:10)
[2017-06-17] MEDS: GENTAMICIN 140 MG in D5W 50 ML IV (17:04)
[2017-06-18] MEDS: GENTAMICIN 140 MG in D5W 50 ML IV ×2 (04:00→17:59)
[2017-06-18] MEDS: MORPHINE 2 MG/ML 1ML SYRINGE IV ×6 (05:06→21:41)
[2017-06-18 06:49] LABS: BASO % 0.6 % (0.0-1.0); EOS # 0.1 10^3/uL (0.0-0.50); EOS % 1.9 % (0.0-3.0); HEMATOCRIT 33.9 % (36.0-47.0); HEMOGLOBIN 10.5 g/dl (12.0-16.0); IMMATURE GRANULOCYTE # 0.1 10^3/uL (0-0); IMMATURE GRANULOCYTE % 0.7 % (0-0); LYMPH % 27.9 % (24.0-44.0); MEAN CORPUSCULAR HEMOGLOBIN 27.3 pg (27.0-33.0); MEAN CORPUSCULAR VOLUME 88.1 fl (80.0-96.0); MONO # 0.9 10^3/uL (0.0-0.8); NEUTROPHILS # 3.9 10^3/uL (1.8-7.7); NEUTROPHILS % 55.9 % (36.0-66.0); PLATELET COUNT, AUTOMATED 192 10^3/uL (150-450); RED BLOOD COUNT 3.85 10^6/uL (4.00-5.40); RED CELL DISTRIBUTION WIDTH 14.7 % (11.5-14.5)
[2017-06-18 07:22] LABS: ALBUMIN 2.7 GM/DL (3.2-5.2); ALBUMIN/GLOBULIN RATIO 0.75 (1.00-1.93); ALKALINE PHOSPHATASE 99 U/L (45-117); ALT/SGPT 14 U/L (12-78); ANION GAP 7 MEQ/L (8-16); AST/SGOT 11 U/L (7-37); BILIRUBIN,TOTAL 0.4 MG/DL (0.2-1.0); BLOOD UREA NITROGEN 14 MG/DL (7-18); C REACTIVE PROTEIN QUANTITATIV 6.54 MG/DL (0.00-0.30); CALCIUM LEVEL 8.8 MG/DL (8.8-10.2); CARBON DIOXIDE LEVEL 30 MEQ/L (21-32); CHLORIDE LEVEL 104 MEQ/L (98-107); CPK CREATINE PHOSPHOKINASE 75 U/L (26-192); CREATININE FOR GFR 0.76 MG/DL (0.55-1.30); GLOMERULAR FILTRATION RATE > 60.0 (>45); GLUCOSE, FASTING 88 MG/DL (70-100); SODIUM LEVEL 141 MEQ/L (136-145); TOTAL PROTEIN 6.3 GM/DL (6.4-8.2)
[2017-06-18 07:32] LABS: ERYTHROCYTE SEDIMENTATION RATE 63 mm/hr (0-30)
[2017-06-18] MEDS: ENOXAPARIN 40 MG/0.4 ML SYRINGE (J1650) SC (08:10)
[2017-06-18] MEDS: DOCUSATE SODIUM 100 MG CAP PO ×2 (08:11→20:21)
[2017-06-18] MEDS: PERCOCET 5MG/325MG TAB PO ×2 (12:37→18:05)
[2017-06-18 16:15] LABS: GENTAMICIN LEVEL TROUGH 0.7 MCG/ML (0.0-2.0)
[2017-06-18] MEDS: DAPTOmycin 1,000 MG in NS 50 ML IV (16:56)
[2017-06-18 19:55] LABS: GENTAMICIN LEVEL PEAK 4.1 MCG/ML (3.0-10.0)
[2017-06-19] MEDS: PERCOCET 5MG/325MG TAB PO ×3 (00:26→14:58)
[2017-06-19] MEDS: GENTAMICIN 140 MG in D5W 50 ML IV ×2 (04:42→15:48)
[2017-06-19] MEDS: MORPHINE 2 MG/ML 1ML SYRINGE IV ×5 (06:59→21:12)
[2017-06-19 07:57] LABS: BASO % 0.6 % (0.0-1.0); EOS # 0.1 10^3/uL (0.0-0.50); EOS % 1.8 % (0.0-3.0); HEMATOCRIT 35.5 % (36.0-47.0); IMMATURE GRANULOCYTE # 0.1 10^3/uL (0-0); IMMATURE GRANULOCYTE % 1.2 % (0-0); LYMPH # 1.9 10^3/uL (1.5-4.5); LYMPH % 28.1 % (24.0-44.0); MEAN CORPUSCULAR HEMOGLOBIN 26.7 pg (27.0-33.0); MEAN CORPUSCULAR VOLUME 86.2 fl (80.0-96.0); MONO # 0.8 10^3/uL (0.0-0.8); MONO % 12.5 % (0.0-5.0); NEUTROPHILS # 3.8 10^3/uL (1.8-7.7); NEUTROPHILS % 55.8 % (36.0-66.0); PLATELET COUNT, AUTOMATED 208 10^3/uL (150-450); RED BLOOD COUNT 4.12 10^6/uL (4.00-5.40); RED CELL DISTRIBUTION WIDTH 14.5 % (11.5-14.5); WHITE BLOOD COUNT 6.7 10^3/uL (4.0-10.0)
[2017-06-19 08:28] LABS: ERYTHROCYTE SEDIMENTATION RATE 62 mm/hr (0-30)
[2017-06-19 08:48] LABS: ALBUMIN 2.9 GM/DL (3.2-5.2); ALBUMIN/GLOBULIN RATIO 0.73 (1.00-1.93); ALKALINE PHOSPHATASE 105 U/L (45-117); ALT/SGPT 16 U/L (12-78); ANION GAP 5 MEQ/L (8-16); AST/SGOT 12 U/L (7-37); BILIRUBIN,TOTAL 0.3 MG/DL (0.2-1.0); BLOOD UREA NITROGEN 12 MG/DL (7-18); C REACTIVE PROTEIN QUANTITATIV 4.89 MG/DL (0.00-0.30); CALCIUM LEVEL 8.7 MG/DL (8.8-10.2); CARBON DIOXIDE LEVEL 30 MEQ/L (21-32); CHLORIDE LEVEL 105 MEQ/L (98-107); CREATININE FOR GFR 0.75 MG/DL (0.55-1.30); GLOMERULAR FILTRATION RATE > 60.0 (>45); GLUCOSE, FASTING 96 MG/DL (70-100); SODIUM LEVEL 140 MEQ/L (136-145); TOTAL PROTEIN 6.9 GM/DL (6.4-8.2)
[2017-06-19] MEDS: ENOXAPARIN 40 MG/0.4 ML SYRINGE (J1650) SC (09:00)
[2017-06-19] MEDS: DOCUSATE SODIUM 100 MG CAP PO ×2 (09:13→21:11)
[2017-06-19] MEDS: DAPTOmycin 1,000 MG in NS 50 ML IV (14:56)
[2017-06-19] MEDS: METAMUCIL (PSYLLIUM) PACKET PO ×2 (21:00→21:11)
[2017-06-19] MEDS: DULoxetine 30 MG CAP (CYMBALTA) PO (21:11)
[2017-06-20] MEDS: GENTAMICIN 140 MG in D5W 50 ML IV ×2 (03:21→17:37)
[2017-06-20] MEDS: PERCOCET 5MG/325MG TAB PO ×2 (05:10→17:39)
[2017-06-20] MEDS: MORPHINE 2 MG/ML 1ML SYRINGE IV ×3 (05:52→17:38)
[2017-06-20 07:18] LABS: BASO % 0.4 % (0.0-1.0); EOS # 0.1 10^3/uL (0.0-0.50); EOS % 1.6 % (0.0-3.0); HEMOGLOBIN 10.7 g/dl (12.0-16.0); IMMATURE GRANULOCYTE % 0.6 % (0-0); LYMPH # 1.7 10^3/uL (1.5-4.5); MEAN CORPUSCULAR HEMOGLOBIN 27.1 pg (27.0-33.0); MEAN CORPUSCULAR HGB CONC 31.5 g/dl (32.0-36.5); MEAN CORPUSCULAR VOLUME 86.1 fl (80.0-96.0); MONO # 0.8 10^3/uL (0.0-0.8); MONO % 11.2 % (0.0-5.0); NEUTROPHILS # 4.3 10^3/uL (1.8-7.7); NEUTROPHILS % 62.2 % (36.0-66.0); PLATELET COUNT, AUTOMATED 206 10^3/uL (150-450); RED BLOOD COUNT 3.95 10^6/uL (4.00-5.40); RED CELL DISTRIBUTION WIDTH 14.5 % (11.5-14.5); WHITE BLOOD COUNT 6.9 10^3/uL (4.0-10.0)
[2017-06-20 07:30] LABS: ALBUMIN 2.9 GM/DL (3.2-5.2); ALBUMIN/GLOBULIN RATIO 0.76 (1.00-1.93); ALKALINE PHOSPHATASE 104 U/L (45-117); ALT/SGPT 15 U/L (12-78); ANION GAP 7 MEQ/L (8-16); AST/SGOT 12 U/L (7-37); BILIRUBIN,TOTAL 0.4 MG/DL (0.2-1.0); BLOOD UREA NITROGEN 12 MG/DL (7-18); C REACTIVE PROTEIN QUANTITATIV 4.62 MG/DL (0.00-0.30); CARBON DIOXIDE LEVEL 30 MEQ/L (21-32); CHLORIDE LEVEL 103 MEQ/L (98-107); CREATININE FOR GFR 0.71 MG/DL (0.55-1.30); GLOMERULAR FILTRATION RATE > 60.0 (>45); GLUCOSE, FASTING 112 MG/DL (70-100); POTASSIUM SERUM 4.3 MEQ/L (3.5-5.1); SODIUM LEVEL 140 MEQ/L (136-145); TOTAL PROTEIN 6.7 GM/DL (6.4-8.2)
[2017-06-20 08:22] LABS: ERYTHROCYTE SEDIMENTATION RATE 61 mm/hr (0-30)
[2017-06-20] MEDS: MIRALAX *UNIT DOSE* 17GM PACKET PO (09:00)
[2017-06-20] MEDS: ENOXAPARIN 40 MG/0.4 ML SYRINGE (J1650) SC (09:26)
[2017-06-20] MEDS: DOCUSATE SODIUM 100 MG CAP PO ×2 (09:26→20:54)
[2017-06-20] MEDS: PREGABALIN 50 MG CAP (LYRICA) PO ×3 (11:34→22:22)
[2017-06-20] MEDS: NAPROXEN 250 MG TAB PO ×2 (11:35→22:22)
[2017-06-20] MEDS ORDERED: LIDOCAINE VISCOUS 2% SOLN 15ML UDC As Ordered ×2 (14:08→14:09)
[2017-06-20] MEDS ORDERED: MIDAZOLAM INJ 2 MG/2 ML VIAL (J2250) As Ordered ×3 (14:09)
[2017-06-20] MEDS: LIDOCAINE VISCOUS 2% SOLN 15ML UDC PO (14:33)
[2017-06-20] MEDS: MIDAZOLAM INJ 2 MG/2 ML VIAL (J2250) IV ×4 (14:36→14:47)
[2017-06-20] MEDS: DAPTOmycin 1,000 MG in NS 50 ML IV (16:03)
[2017-06-20] MEDS: DULoxetine 30 MG CAP (CYMBALTA) PO (20:54)
[2017-06-20] MEDS: METAMUCIL (PSYLLIUM) PACKET PO (22:21)
[2017-06-21] MEDS: PERCOCET 5MG/325MG TAB PO ×4 (00:14→18:20)
[2017-06-21] MEDS: GENTAMICIN 140 MG in D5W 50 ML IV ×2 (04:18→15:22)
[2017-06-21 06:57] LABS: BASO % 0.5 % (0.0-1.0); EOS # 0.1 10^3/uL (0.0-0.50); EOS % 1.4 % (0.0-3.0); HEMATOCRIT 35.5 % (36.0-47.0); HEMOGLOBIN 11.1 g/dl (12.0-16.0); IMMATURE GRANULOCYTE % 0.5 % (0-0); LYMPH # 1.7 10^3/uL (1.5-4.5); LYMPH % 29.9 % (24.0-44.0); MEAN CORPUSCULAR HEMOGLOBIN 27.1 pg (27.0-33.0); MEAN CORPUSCULAR HGB CONC 31.3 g/dl (32.0-36.5); MEAN CORPUSCULAR VOLUME 86.6 fl (80.0-96.0); MONO # 0.6 10^3/uL (0.0-0.8); MONO % 10.8 % (0.0-5.0); NEUTROPHILS # 3.3 10^3/uL (1.8-7.7); NEUTROPHILS % 56.9 % (36.0-66.0); PLATELET COUNT, AUTOMATED 208 10^3/uL (150-450); RED CELL DISTRIBUTION WIDTH 14.3 % (11.5-14.5); WHITE BLOOD COUNT 5.7 10^3/uL (4.0-10.0)
[2017-06-21 07:31] LABS: ERYTHROCYTE SEDIMENTATION RATE 58 mm/hr (0-30)
[2017-06-21 07:34] LABS: ALBUMIN 2.9 GM/DL (3.2-5.2); ALBUMIN/GLOBULIN RATIO 0.83 (1.00-1.93); ALKALINE PHOSPHATASE 107 U/L (45-117); ALT/SGPT 17 U/L (12-78); ANION GAP 7 MEQ/L (8-16); AST/SGOT 17 U/L (7-37); BILIRUBIN,TOTAL 0.4 MG/DL (0.2-1.0); BLOOD UREA NITROGEN 20 MG/DL (7-18); C REACTIVE PROTEIN QUANTITATIV 4.25 MG/DL (0.00-0.30); CARBON DIOXIDE LEVEL 30 MEQ/L (21-32); CHLORIDE LEVEL 104 MEQ/L (98-107); CREATININE FOR GFR 0.75 MG/DL (0.55-1.30); GLOMERULAR FILTRATION RATE > 60.0 (>45); GLUCOSE, FASTING 97 MG/DL (70-100); POTASSIUM SERUM 4.2 MEQ/L (3.5-5.1); SODIUM LEVEL 141 MEQ/L (136-145); TOTAL PROTEIN 6.4 GM/DL (6.4-8.2)
[2017-06-21] MEDS: MIRALAX *UNIT DOSE* 17GM PACKET PO (09:40)
[2017-06-21] MEDS: NAPROXEN 250 MG TAB PO (09:41)
[2017-06-21] MEDS: DOCUSATE SODIUM 100 MG CAP PO (09:41)
[2017-06-21] MEDS: PREGABALIN 50 MG CAP (LYRICA) PO ×2 (09:41→15:22)
[2017-06-21] MEDS: ENOXAPARIN 40 MG/0.4 ML SYRINGE (J1650) SC (09:41)
[2017-06-21] MEDS: DAPTOmycin 1,000 MG in NS 50 ML IV (14:31)
[2017-06-21 15:22] LABS: GENTAMICIN LEVEL TROUGH 1.1 MCG/ML (0.0-2.0)
[2017-06-21 17:42] LABS: GENTAMICIN LEVEL PEAK 4.3 MCG/ML (3.0-10.0)
[2017-06-21] MEDS: ALPRAZolam 0.25 MG TAB PO (18:17)
== END 2017-06-21 18:40 | disposition short-term general hospital (02) | DRG 289 ==
LOC: M ED 11:25 → M ED INP 15:30 → M MS5PR 17:45
PROC: B24BZZ4 Ultrasonography of Heart with Aorta, Transesophageal (ICD-10-PCS; principal; 2017-06-20 09:34)
DX: I33.0 Acute and subacute infective endocarditis (principal); R78.81 Bacteremia; Z68.44 Body mass index [BMI] 60.0-69.9, adult; I10 Essential (primary) hypertension; N95.2 Postmenopausal atrophic vaginitis; B95.2 Enterococcus as the cause of diseases classified elsewhere; E66.01 Morbid (severe) obesity due to excess calories; Z90.710 Acquired absence of both cervix and uterus; Z96.653 Presence of artificial knee joint, bilateral; Z98.84 Bariatric surgery status; Z96.611 Presence of right artificial shoulder joint; Z88.2 Allergy status to sulfonamides; Z88.0 Allergy status to penicillin; Z88.1 Allergy status to other antibiotic agents; Z88.8 Allergy status to other drugs, medicaments and biological substances; Z79.899 Other long term (current) drug therapy; Z86.14 Personal history of Methicillin resistant Staphylococcus aureus infection

== ENCOUNTER → 2017-07-10 | Outpatient (REF) | payer MEDICARE, MEDICAID ==
[2017-07-10 12:25] LABS: BASO % 0.3 % (0.0-1.0); EOS # 0.3 10^3/uL (0.0-0.50); EOS % 4.4 % (0.0-3.0); HEMATOCRIT 41.6 % (36.0-47.0); IMMATURE GRANULOCYTE % 0.2 % (0-3.0); LYMPH # 1.9 10^3/uL (1.5-4.5); LYMPH % 33.2 % (24.0-44.0); MEAN CORPUSCULAR HEMOGLOBIN 27.4 pg (27.0-33.0); MEAN CORPUSCULAR HGB CONC 31.3 g/dl (32.0-36.5); MEAN CORPUSCULAR VOLUME 87.8 fl (80.0-96.0); MONO # 0.8 10^3/uL (0.0-0.8); MONO % 12.8 % (0.0-5.0); NEUTROPHILS # 2.9 10^3/uL (1.8-7.7); NEUTROPHILS % 49.1 % (36.0-66.0); PLATELET COUNT, AUTOMATED 179 10^3/uL (150-450); RED BLOOD COUNT 4.74 10^6/uL (4.00-5.40); RED CELL DISTRIBUTION WIDTH 16.2 % (11.5-14.5); WHITE BLOOD COUNT 5.9 10^3/uL (4.0-10.0)
[2017-07-10 12:34] LABS: ALBUMIN 3.3 GM/DL (3.2-5.2); ALKALINE PHOSPHATASE 93 U/L (45-117); ALT/SGPT 13 U/L (12-78); ANION GAP 8 MEQ/L (8-16); AST/SGOT 13 U/L (7-37); BILIRUBIN,TOTAL 0.3 MG/DL (0.2-1.0); BLOOD UREA NITROGEN 10 MG/DL (7-18); C REACTIVE PROTEIN QUANTITATIV 1.77 MG/DL (0.00-0.30); CALCIUM LEVEL 8.5 MG/DL (8.8-10.2); CARBON DIOXIDE LEVEL 28 MEQ/L (21-32); CHLORIDE LEVEL 105 MEQ/L (98-107); CREATININE FOR GFR 0.88 MG/DL (0.55-1.30); GLOMERULAR FILTRATION RATE > 60.0 (>45); GLUCOSE, FASTING 109 MG/DL (70-100); POTASSIUM SERUM 3.4 MEQ/L (3.5-5.1); SODIUM LEVEL 141 MEQ/L (136-145); TOTAL PROTEIN 6.6 GM/DL (6.4-8.2)
[2017-07-10 13:29] LABS: ERYTHROCYTE SEDIMENTATION RATE 1 mm/hr (0-30)
== END ==
LOC: M LAB REF 12:03
DX: I33.0 Acute and subacute infective endocarditis (principal)
CPT/HCPCS: 80053

== ENCOUNTER → 2017-07-17 | Outpatient (REF) | payer MEDICARE, MEDICAID ==
[2017-07-17 11:40] LABS: BASO % 0.5 % (0.0-1.0); EOS # 0.2 10^3/uL (0.0-0.50); EOS % 3.5 % (0.0-3.0); HEMATOCRIT 36.6 % (36.0-47.0); HEMOGLOBIN 11.4 g/dl (12.0-16.0); IMMATURE GRANULOCYTE % 1.2 % (0-3.0); LYMPH # 1.3 10^3/uL (1.5-4.5); LYMPH % 30.4 % (24.0-44.0); MEAN CORPUSCULAR HEMOGLOBIN 27.3 pg (27.0-33.0); MEAN CORPUSCULAR HGB CONC 31.1 g/dl (32.0-36.5); MEAN CORPUSCULAR VOLUME 87.6 fl (80.0-96.0); MONO # 0.5 10^3/uL (0.0-0.8); MONO % 10.5 % (0.0-5.0); NEUTROPHILS # 2.3 10^3/uL (1.8-7.7); NEUTROPHILS % 53.9 % (36.0-66.0); PLATELET COUNT, AUTOMATED 150 10^3/uL (150-450); RED BLOOD COUNT 4.18 10^6/uL (4.00-5.40); RED CELL DISTRIBUTION WIDTH 15.8 % (11.5-14.5); WHITE BLOOD COUNT 4.3 10^3/uL (4.0-10.0)
[2017-07-17 11:48] LABS: ALBUMIN/GLOBULIN RATIO 0.94 (1.00-1.93); ALKALINE PHOSPHATASE 118 U/L (45-117); ALT/SGPT 20 U/L (12-78); ANION GAP 6 MEQ/L (8-16); AST/SGOT 12 U/L (7-37); BILIRUBIN,TOTAL 0.3 MG/DL (0.2-1.0); BLOOD UREA NITROGEN 10 MG/DL (7-18); CALCIUM LEVEL 8.7 MG/DL (8.8-10.2); CARBON DIOXIDE LEVEL 29 MEQ/L (21-32); CHLORIDE LEVEL 108 MEQ/L (98-107); CREATININE FOR GFR 0.87 MG/DL (0.55-1.30); GLOMERULAR FILTRATION RATE > 60.0 (>45); GLUCOSE, FASTING 95 MG/DL (70-100); POTASSIUM SERUM 3.8 MEQ/L (3.5-5.1); SODIUM LEVEL 143 MEQ/L (136-145); TOTAL PROTEIN 6.2 GM/DL (6.4-8.2)
[2017-07-17 12:29] LABS: ERYTHROCYTE SEDIMENTATION RATE 27 mm/hr (0-30)
== END ==
LOC: M LAB REF 11:12
DX: I33.0 Acute and subacute infective endocarditis (principal)
CPT/HCPCS: 80053

== ENCOUNTER → 2017-07-24 | Outpatient (REF) | payer MEDICARE, MEDICAID ==
[2017-07-24 11:21] LABS: BASO % 0.5 % (0.0-1.0); EOS # 0.2 10^3/uL (0.0-0.50); EOS % 2.7 % (0.0-3.0); HEMATOCRIT 40.9 % (36.0-47.0); HEMOGLOBIN 12.6 g/dl (12.0-16.0); IMMATURE GRANULOCYTE % 0.2 % (0-3.0); LYMPH # 1.4 10^3/uL (1.5-4.5); LYMPH % 22.6 % (24.0-44.0); MEAN CORPUSCULAR HEMOGLOBIN 27.1 pg (27.0-33.0); MEAN CORPUSCULAR HGB CONC 30.8 g/dl (32.0-36.5); MONO # 0.6 10^3/uL (0.0-0.8); MONO % 10.5 % (0.0-5.0); NEUTROPHILS # 3.8 10^3/uL (1.8-7.7); NEUTROPHILS % 63.5 % (36.0-66.0); PLATELET COUNT, AUTOMATED 162 10^3/uL (150-450); RED BLOOD COUNT 4.65 10^6/uL (4.00-5.40); RED CELL DISTRIBUTION WIDTH 16.3 % (11.5-14.5)
[2017-07-24 11:56] LABS: ERYTHROCYTE SEDIMENTATION RATE 19 mm/hr (0-30)
[2017-07-24 12:04] LABS: ALBUMIN 3.5 GM/DL (3.2-5.2); ALBUMIN/GLOBULIN RATIO 1.09 (1.00-1.93); ALKALINE PHOSPHATASE 120 U/L (45-117); ALT/SGPT 17 U/L (12-78); ANION GAP 8 MEQ/L (8-16); AST/SGOT 13 U/L (7-37); BILIRUBIN,TOTAL 0.3 MG/DL (0.2-1.0); BLOOD UREA NITROGEN 18 MG/DL (7-18); C REACTIVE PROTEIN QUANTITATIV 0.73 MG/DL (0.00-0.30); CALCIUM LEVEL 9.1 MG/DL (8.8-10.2); CARBON DIOXIDE LEVEL 28 MEQ/L (21-32); CHLORIDE LEVEL 106 MEQ/L (98-107); CREATININE FOR GFR 0.84 MG/DL (0.55-1.30); GLOMERULAR FILTRATION RATE > 60.0 (>45); GLUCOSE, FASTING 110 MG/DL (70-100); POTASSIUM SERUM 4.8 MEQ/L (3.5-5.1); SODIUM LEVEL 142 MEQ/L (136-145); TOTAL PROTEIN 6.7 GM/DL (6.4-8.2)
== END ==
LOC: M LAB REF 10:54
DX: I33.0 Acute and subacute infective endocarditis (principal)
CPT/HCPCS: 80053

== ENCOUNTER → 2017-07-31 | Outpatient (REF) | payer MEDICARE, MEDICAID ==
[2017-07-31 11:35] LABS: BASO % 0.6 % (0.0-1.0); EOS # 0.1 10^3/uL (0.0-0.50); EOS % 1.5 % (0.0-3.0); HEMATOCRIT 38.8 % (36.0-47.0); HEMOGLOBIN 12.1 g/dl (12.0-16.0); IMMATURE GRANULOCYTE % 0.2 % (0-3.0); LYMPH # 1.3 10^3/uL (1.5-4.5); LYMPH % 24.1 % (24.0-44.0); MEAN CORPUSCULAR HEMOGLOBIN 26.9 pg (27.0-33.0); MEAN CORPUSCULAR HGB CONC 31.2 g/dl (32.0-36.5); MEAN CORPUSCULAR VOLUME 86.2 fl (80.0-96.0); MONO # 0.4 10^3/uL (0.0-0.8); MONO % 8.4 % (0.0-5.0); NEUTROPHILS # 3.4 10^3/uL (1.8-7.7); NEUTROPHILS % 65.2 % (36.0-66.0); PLATELET COUNT, AUTOMATED 181 10^3/uL (150-450); RED CELL DISTRIBUTION WIDTH 15.9 % (11.5-14.5); WHITE BLOOD COUNT 5.2 10^3/uL (4.0-10.0)
[2017-07-31 12:03] LABS: ALBUMIN 3.3 GM/DL (3.2-5.2); ALBUMIN/GLOBULIN RATIO 1.03 (1.00-1.93); ALKALINE PHOSPHATASE 121 U/L (45-117); ALT/SGPT 14 U/L (12-78); ANION GAP 6 MEQ/L (8-16); AST/SGOT 11 U/L (7-37); BILIRUBIN,TOTAL 0.3 MG/DL (0.2-1.0); BLOOD UREA NITROGEN 13 MG/DL (7-18); C REACTIVE PROTEIN QUANTITATIV 0.77 MG/DL (0.00-0.30); CALCIUM LEVEL 9.1 MG/DL (8.8-10.2); CARBON DIOXIDE LEVEL 31 MEQ/L (21-32); CHLORIDE LEVEL 105 MEQ/L (98-107); GLOMERULAR FILTRATION RATE > 60.0 (>45); GLUCOSE, FASTING 117 MG/DL (70-100); POTASSIUM SERUM 3.8 MEQ/L (3.5-5.1); SODIUM LEVEL 142 MEQ/L (136-145); TOTAL PROTEIN 6.5 GM/DL (6.4-8.2)
[2017-07-31 12:12] LABS: ERYTHROCYTE SEDIMENTATION RATE 14 mm/hr (0-30)
== END ==
LOC: M LAB REF 11:26
DX: I33.0 Acute and subacute infective endocarditis (principal)
CPT/HCPCS: 80053

== ENCOUNTER → 2017-08-07 | Outpatient (REF) | payer MEDICARE, MEDICAID ==
[2017-08-07 12:59] LABS: BASO % 0.6 % (0.0-1.0); EOS # 0.1 10^3/uL (0.0-0.50); EOS % 2.5 % (0.0-3.0); HEMATOCRIT 37.9 % (36.0-47.0); HEMOGLOBIN 11.6 g/dl (12.0-16.0); IMMATURE GRANULOCYTE % 0.2 % (0-3.0); LYMPH # 1.3 10^3/uL (1.5-4.5); LYMPH % 27.4 % (24.0-44.0); MEAN CORPUSCULAR HEMOGLOBIN 26.5 pg (27.0-33.0); MEAN CORPUSCULAR HGB CONC 30.6 g/dl (32.0-36.5); MEAN CORPUSCULAR VOLUME 86.7 fl (80.0-96.0); MONO # 0.6 10^3/uL (0.0-0.8); MONO % 11.9 % (0.0-5.0); NEUTROPHILS # 2.8 10^3/uL (1.8-7.7); NEUTROPHILS % 57.4 % (36.0-66.0); PLATELET COUNT, AUTOMATED 177 10^3/uL (150-450); RED BLOOD COUNT 4.37 10^6/uL (4.00-5.40); RED CELL DISTRIBUTION WIDTH 15.6 % (11.5-14.5); WHITE BLOOD COUNT 4.9 10^3/uL (4.0-10.0)
[2017-08-07 13:23] LABS: ERYTHROCYTE SEDIMENTATION RATE 15 mm/hr (0-30)
[2017-08-07 13:36] LABS: ALBUMIN 3.2 GM/DL (3.2-5.2); ALBUMIN/GLOBULIN RATIO 0.97 (1.00-1.93); ALKALINE PHOSPHATASE 129 U/L (45-117); ALT/SGPT 21 U/L (12-78); ANION GAP 6 MEQ/L (8-16); AST/SGOT 16 U/L (7-37); BILIRUBIN,TOTAL 0.3 MG/DL (0.2-1.0); BLOOD UREA NITROGEN 13 MG/DL (7-18); C REACTIVE PROTEIN QUANTITATIV 0.78 MG/DL (0.00-0.30); CARBON DIOXIDE LEVEL 31 MEQ/L (21-32); CHLORIDE LEVEL 104 MEQ/L (98-107); CREATININE FOR GFR 0.89 MG/DL (0.55-1.30); GLOMERULAR FILTRATION RATE > 60.0 (>45); GLUCOSE, FASTING 108 MG/DL (70-100); POTASSIUM SERUM 4.7 MEQ/L (3.5-5.1); SODIUM LEVEL 141 MEQ/L (136-145); TOTAL PROTEIN 6.5 GM/DL (6.4-8.2)
== END ==
LOC: M LAB REF 12:26
DX: I33.0 Acute and subacute infective endocarditis (principal)
CPT/HCPCS: 80053

== ENCOUNTER → 2017-08-14 | Outpatient (REF) | payer MEDICARE, MEDICAID ==
[2017-08-14 15:09] LABS: BASO % 0.4 % (0.0-1.0); EOS # 0.1 10^3/uL (0.0-0.50); EOS % 2.3 % (0.0-3.0); HEMATOCRIT 38.7 % (36.0-47.0); HEMOGLOBIN 12.2 g/dl (12.0-15.5); IMMATURE GRANULOCYTE % 0.2 % (0-3.0); LYMPH # 1.5 10^3/uL (1.5-4.5); LYMPH % 29.6 % (24.0-44.0); MEAN CORPUSCULAR HEMOGLOBIN 27.7 pg (27.0-33.0); MEAN CORPUSCULAR HGB CONC 31.5 g/dl (32.0-36.5); MEAN CORPUSCULAR VOLUME 87.8 fl (80.0-96.0); MONO # 0.5 10^3/uL (0.0-0.8); MONO % 9.7 % (0.0-5.0); NEUTROPHILS % 57.8 % (36.0-66.0); PLATELET COUNT, AUTOMATED 171 10^3/uL (150-450); RED BLOOD COUNT 4.41 10^6/uL (4.00-5.40); RED CELL DISTRIBUTION WIDTH 15.8 % (11.5-14.5); WHITE BLOOD COUNT 5.1 10^3/uL (4.0-10.0)
[2017-08-14 15:18] LABS: ALBUMIN 3.2 GM/DL (3.2-5.2); ALBUMIN/GLOBULIN RATIO 0.97 (1.00-1.93); ALKALINE PHOSPHATASE 118 U/L (45-117); ALT/SGPT 17 U/L (12-78); ANION GAP 4 MEQ/L (8-16); AST/SGOT 12 U/L (7-37); BILIRUBIN,TOTAL 0.2 MG/DL (0.2-1.0); BLOOD UREA NITROGEN 18 MG/DL (7-18); C REACTIVE PROTEIN QUANTITATIV 0.57 MG/DL (0.00-0.30); CALCIUM LEVEL 8.6 MG/DL (8.8-10.2); CARBON DIOXIDE LEVEL 28 MEQ/L (21-32); CHLORIDE LEVEL 108 MEQ/L (98-107); CREATININE FOR GFR 1.01 MG/DL (0.55-1.30); GLOMERULAR FILTRATION RATE 59.3 (>45); GLUCOSE, FASTING 94 MG/DL (70-100); POTASSIUM SERUM 4.7 MEQ/L (3.5-5.1); SODIUM LEVEL 140 MEQ/L (136-145); TOTAL PROTEIN 6.5 GM/DL (6.4-8.2)
[2017-08-14 15:57] LABS: ERYTHROCYTE SEDIMENTATION RATE 13 mm/hr (0-30)
== END ==
LOC: M LAB REF 14:56
DX: I33.0 Acute and subacute infective endocarditis (principal)
CPT/HCPCS: 80053

== ENCOUNTER → 2017-08-31 | Outpatient (REF) | payer MEDICARE, MEDICAID ==
[2017-08-31 11:11] LABS: BASO % 0.7 % (0.0-1.0); EOS # 0.1 10^3/uL (0.0-0.50); EOS % 2.1 % (0.0-3.0); HEMATOCRIT 40.3 % (36.0-47.0); HEMOGLOBIN 12.6 g/dl (12.0-15.5); IMMATURE GRANULOCYTE % 0.2 % (0-3.0); LYMPH # 1.6 10^3/uL (1.5-4.5); LYMPH % 27.1 % (24.0-44.0); MEAN CORPUSCULAR HEMOGLOBIN 26.8 pg (27.0-33.0); MEAN CORPUSCULAR HGB CONC 31.3 g/dl (32.0-36.5); MEAN CORPUSCULAR VOLUME 85.7 fl (80.0-96.0); MONO # 0.5 10^3/uL (0.0-0.8); NEUTROPHILS # 3.6 10^3/uL (1.8-7.7); NEUTROPHILS % 61.9 % (36.0-66.0); PLATELET COUNT, AUTOMATED 192 10^3/uL (150-450); RED CELL DISTRIBUTION WIDTH 15.1 % (11.5-14.5); WHITE BLOOD COUNT 5.8 10^3/uL (4.0-10.0)
[2017-08-31 11:24] LABS: ALBUMIN 3.3 GM/DL (3.2-5.2); ALBUMIN/GLOBULIN RATIO 0.97 (1.00-1.93); ALKALINE PHOSPHATASE 138 U/L (45-117); ALT/SGPT 32 U/L (12-78); ANION GAP 6 MEQ/L (8-16); AST/SGOT 19 U/L (7-37); BILIRUBIN,TOTAL 0.4 MG/DL (0.2-1.0); BLOOD UREA NITROGEN 15 MG/DL (7-18); C REACTIVE PROTEIN QUANTITATIV 0.73 MG/DL (0.00-0.30); CALCIUM LEVEL 9.1 MG/DL (8.8-10.2); CARBON DIOXIDE LEVEL 29 MEQ/L (21-32); CHLORIDE LEVEL 105 MEQ/L (98-107); CREATININE FOR GFR 0.95 MG/DL (0.55-1.30); GLOMERULAR FILTRATION RATE > 60.0 (>45); GLUCOSE, FASTING 92 MG/DL (70-100); POTASSIUM SERUM 4.2 MEQ/L (3.5-5.1); SODIUM LEVEL 140 MEQ/L (136-145); TOTAL PROTEIN 6.7 GM/DL (6.4-8.2)
[2017-08-31 11:31] LABS: ERYTHROCYTE SEDIMENTATION RATE 16 mm/hr (0-30)
== END ==
LOC: M LABDRAW1 10:39
DX: I35.1 Nonrheumatic aortic (valve) insufficiency (principal); B95.2 Enterococcus as the cause of diseases classified elsewhere; I33.0 Acute and subacute infective endocarditis
CPT/HCPCS: 80053

== ENCOUNTER 2017-10-01 18:46 | Emergency (ER) | payer MEDICARE, MEDICAID ==
[2017-10-01 19:32] LABS: CALCIUM OXALATE CRYSTALS RFX SMALL; KETONE, URINE AUTO RFX NEGATIVE (NEGATIVE); LEUKOCYTE ESTERASE UR AUTO RFX 2+ (NEGATIVE); NITRITE, URINE AUTO RFX NEGATIVE (NEGATIVE); RBC, URINE AUTO RFX 40 /HPF (0-3); SPECIFIC GRAVITY UR AUTO RFX 1.019 (1.002-1.035); SQUAM EPITHELIAL CELL UR AURFX 19 /HPF (0-6); WBC, URINE AUTO RFX 69 /HPF (0-3)
[2017-10-01] MEDS ORDERED: ONDANSETRON 4MG/2ML VIAL (J2405) As Ordered (20:20)
[2017-10-01] MEDS ORDERED: MORPHINE 4 MG/ML 1ML VIAL/SYRINGE (J2270) As Ordered (20:21)
[2017-10-01] MEDS: ONDANSETRON 4MG/2ML VIAL (J2405) IV (20:30)
[2017-10-01] MEDS: MORPHINE 4 MG/ML 1ML VIAL/SYRINGE (J2270) IV ×2 (20:30→22:00)
[2017-10-01] MEDS ORDERED: KETOROLAC 30 MG/ML VIAL (J1885) IV (20:30)
[2017-10-01 20:36] LABS: BASO % 0.5 % (0.0-1.0); EOS # 0.3 10^3/uL (0.0-0.50); EOS % 3.8 % (0.0-3.0); HEMATOCRIT 42.7 % (36.0-47.0); IMMATURE GRANULOCYTE % 0.4 % (0-3.0); LYMPH # 2.5 10^3/uL (1.5-4.5); LYMPH % 33.8 % (24.0-44.0); MEAN CORPUSCULAR HEMOGLOBIN 26.9 pg (27.0-33.0); MEAN CORPUSCULAR HGB CONC 30.4 g/dl (32.0-36.5); MEAN CORPUSCULAR VOLUME 88.2 fl (80.0-96.0); MONO # 0.6 10^3/uL (0.0-0.8); MONO % 7.4 % (0.0-5.0); NEUTROPHILS % 54.1 % (36.0-66.0); PLATELET COUNT, AUTOMATED 221 10^3/uL (150-450); RED BLOOD COUNT 4.84 10^6/uL (4.00-5.40); RED CELL DISTRIBUTION WIDTH 14.7 % (11.5-14.5); WHITE BLOOD COUNT 7.4 10^3/uL (4.0-10.0)
[2017-10-01 20:47] LABS: INR 0.94; PROTHROMBIN TIME 12.7 SECONDS (12.4-14.5)
[2017-10-01 21:08] LABS: ALBUMIN 3.6 GM/DL (3.2-5.2); ALKALINE PHOSPHATASE 193 U/L (45-117); ALT/SGPT 22 U/L (12-78); ANION GAP 8 MEQ/L (8-16); AST/SGOT 17 U/L (7-37); BILIRUBIN,DIRECT 0.1 MG/DL (0.0-0.2); BILIRUBIN,TOTAL 0.4 MG/DL (0.2-1.0); BLOOD UREA NITROGEN 19 MG/DL (7-18); CARBON DIOXIDE LEVEL 27 MEQ/L (21-32); CHLORIDE LEVEL 108 MEQ/L (98-107); GLOMERULAR FILTRATION RATE > 60.0 (>45); GLUCOSE, FASTING 108 MG/DL (70-100); LIPASE 119 U/L (73-393); POTASSIUM SERUM 4.4 MEQ/L (3.5-5.1); SODIUM LEVEL 143 MEQ/L (136-145); TOTAL PROTEIN 7.2 GM/DL (6.4-8.2)
[2017-10-01 21:11] LABS: LACTIC ACID SEPSIS PROTOCOL 1.6 MMOL/L (0.4-2.0)
[2017-10-01] MEDS: TAMSULOSIN 0.4 MG CAP PO (22:43)
[2017-10-01] MEDS: OXYCODONE/APAP 5MG/325MG(BULK FOR ED) 1 TABLET PO (22:43)
[2017-10-01] MEDS: KETOROLAC 30 MG/ML VIAL (J1885) IV (22:43)
[2017-10-01] MEDS: NITROFURANTOIN (MACROBID) 100 MG CAP PO (22:43)
== END 2017-10-01 22:54 | disposition home or self-care (01) ==
LOC: M ED 18:46
DX: N20.0 Calculus of kidney (principal); N39.0 Urinary tract infection, site not specified; R11.0 Nausea; E11.40 Type 2 diabetes mellitus with diabetic neuropathy, unspecified; I10 Essential (primary) hypertension; G43.909 Migraine, unspecified, not intractable, without status migrainosus; G47.33 Obstructive sleep apnea (adult) (pediatric); F41.9 Anxiety disorder, unspecified; F32.9 Major depressive disorder, single episode, unspecified; Z87.442 Personal history of urinary calculi
CPT/HCPCS: J2270

== ENCOUNTER 2017-10-06 11:10 | Emergency (ER) | payer MEDICARE, MEDICAID ==
[2017-10-06] MEDS: NS 1,000 ML IV ×2 (14:15)
[2017-10-06 14:58] LABS: BASO % 0.4 % (0.0-1.0); EOS # 0.3 10^3/uL (0.0-0.50); EOS % 3.8 % (0.0-3.0); HEMATOCRIT 39.3 % (36.0-47.0); IMMATURE GRANULOCYTE % 0.3 % (0-3.0); LYMPH # 2.3 10^3/uL (1.5-4.5); LYMPH % 34.6 % (24.0-44.0); MEAN CORPUSCULAR HEMOGLOBIN 27.1 pg (27.0-33.0); MEAN CORPUSCULAR HGB CONC 30.5 g/dl (32.0-36.5); MEAN CORPUSCULAR VOLUME 88.7 fl (80.0-96.0); MONO # 0.7 10^3/uL (0.0-0.8); MONO % 9.9 % (0.0-5.0); NEUTROPHILS # 3.4 10^3/uL (1.8-7.7); PLATELET COUNT, AUTOMATED 202 10^3/uL (150-450); RED BLOOD COUNT 4.43 10^6/uL (4.00-5.40); RED CELL DISTRIBUTION WIDTH 14.6 % (11.5-14.5); WHITE BLOOD COUNT 6.8 10^3/uL (4.0-10.0)
[2017-10-06 15:12] LABS: INR 0.95; PROTHROMBIN TIME 12.8 SECONDS (12.4-14.5)
[2017-10-06 15:15] LABS: D-DIMER QUANT 1153.6 ng/ml (<500); ERYTHROCYTE SEDIMENTATION RATE 33 mm/hr (0-30)
[2017-10-06 15:32] LABS: LACTIC ACID SEPSIS PROTOCOL 1.3 MMOL/L (0.4-2.0)
[2017-10-06 15:33] LABS: ANION GAP 6 MEQ/L (8-16); BLOOD UREA NITROGEN 18 MG/DL (7-18); C REACTIVE PROTEIN QUANTITATIV 1.46 MG/DL (0.00-0.30); CALCIUM LEVEL 9.2 MG/DL (8.8-10.2); CARBON DIOXIDE LEVEL 31 MEQ/L (21-32); CHLORIDE LEVEL 104 MEQ/L (98-107); CPK CREATINE PHOSPHOKINASE 50 U/L (26-192); CREATININE FOR GFR 0.92 MG/DL (0.55-1.30); GLOMERULAR FILTRATION RATE > 60.0 (>45); GLUCOSE, FASTING 96 MG/DL (70-100); POTASSIUM SERUM 4.2 MEQ/L (3.5-5.1); SODIUM LEVEL 141 MEQ/L (136-145); TROPONIN I < 0.02 NG/ML (< 0.10)
[2017-10-06 15:34] LABS: CK-MB VALUE MASS < 1.0 NG/ML (<3.6); NT-PRO BNP 432 PG/ML (<125)
[2017-10-06] MEDS ORDERED: ISOVUE-370 76% 100ML VIAL (Q9967) As Ordered ×2 (16:43)
== END 2017-10-06 18:13 | disposition home or self-care (01) ==
LOC: M ED 11:10
DX: R06.02 Shortness of breath (principal); I10 Essential (primary) hypertension; J98.4 Other disorders of lung; N28.9 Disorder of kidney and ureter, unspecified; Z98.84 Bariatric surgery status; Z79.899 Other long term (current) drug therapy; Z79.82 Long term (current) use of aspirin; Z86.79 Personal history of other diseases of the circulatory system
CPT/HCPCS: Q9967

== ENCOUNTER → 2017-10-06 | Outpatient (REF) | payer MEDICARE, MEDICAID | LOC: M SFHCPLAZ 10:39 | DX: I10 Essential (primary) hypertension (principal); R61 Generalized hyperhidrosis; Z53.8 Procedure and treatment not carried out for other reasons ==

== ENCOUNTER → 2017-11-01 | Outpatient (CLI) | payer MEDICARE, MEDICAID ==
[~2017-11-01] MED LIST changes: -LIDOCAINE 1% MDV 20ML VIAL As Ordered; +METHACHOLINE KIT (J7674) INH
== END ==
LOC: M CARPUL 15:40
DX: R06.02 Shortness of breath (principal)
CPT/HCPCS: J7674

== ENCOUNTER → 2017-11-14 | Outpatient (REF) | payer MEDICARE, MEDICAID ==
[2017-11-14 13:45] LABS: APPEARANCE, URINE TURBID (CLEAR); BACTERIA, URINE AUTO 1+ (NEGATIVE); BILIRUBIN, URINE AUTO NEGATIVE (NEGATIVE); BLOOD, URINE BLOOD NEGATIVE (NEGATIVE); COLOR, URINE AMBER (YELLOW); GLUCOSE, URINE (UA) AUTO NEGATIVE (NEGATIVE); KETONE, URINE AUTO NEGATIVE (NEGATIVE); LEUKOCYTE ESTERASE, URINE AUTO TRACE (NEGATIVE); MUCUS, URINE SMALL (NEGATIVE); NITRITE, URINE AUTO NEGATIVE (NEGATIVE); PROTEIN, URINE AUTO 1+ mg/dL (NEGATIVE); RBC, URINE AUTO 11 /HPF (0-3); SPECIFIC GRAVITY URINE AUTO 1.023 (1.002-1.035); SQUAMOUS EPITHELIAL CELL UR AU 57 /HPF (0-6); UROBILINOGEN, URINE AUTO 0.2 mg/dL (0.0-2.0); WBC, URINE AUTO 16 /HPF (0-3)
== END ==
LOC: M SMT 12:56
DX: N20.0 Calculus of kidney (principal)
CPT/HCPCS: 81001

== ENCOUNTER 2017-11-23 12:10 | Outpatient (RCR) | payer MEDICARE, MEDICAID | END 2017-12-12 | LOC: M CR 12:10 | DX: Z95.3 Presence of xenogenic heart valve (principal) | CPT/HCPCS: 93798 ==

== ENCOUNTER 2017-12-13 15:07 | Outpatient (RCR) | payer MEDICARE, MEDICAID | END 2018-01-12 | LOC: M CR 15:07 | DX: Z95.3 Presence of xenogenic heart valve (principal) | CPT/HCPCS: 93798 ==

== ENCOUNTER 2017-12-20 09:33 | Day surgery (SDC) | payer MEDICARE, MEDICAID ==
[2017-12-20] MEDS: NS 1,000 ML IV (10:19)
[2017-12-20] MEDS ORDERED: PROPOFOL 500 MG/50 ML VIAL As Ordered (11:08)
[2017-12-20] MEDS ORDERED: LIDOCAINE 2% INJ 100 MG/5 ML SDV (FOR ANES.) As Ordered (11:08)
[2017-12-20] MEDS ORDERED: MIDAZOLAM INJ 2 MG/2 ML VIAL (J2250) As Ordered (11:22)
== END 2017-12-20 11:59 | disposition home or self-care (01) ==
LOC: M OPP 09:33
DX: Z12.11 Encounter for screening for malignant neoplasm of colon (principal); K64.8 Other hemorrhoids; D17.5 Benign lipomatous neoplasm of intra-abdominal organs; I10 Essential (primary) hypertension; Z86.79 Personal history of other diseases of the circulatory system; Z95.4 Presence of other heart-valve replacement; Z87.09 Personal history of other diseases of the respiratory system; Z86.14 Personal history of Methicillin resistant Staphylococcus aureus infection; M19.90 Unspecified osteoarthritis, unspecified site; F32.9 Major depressive disorder, single episode, unspecified; F41.9 Anxiety disorder, unspecified; G43.909 Migraine, unspecified, not intractable, without status migrainosus; M54.30 Sciatica, unspecified side; R06.83 Snoring; G47.30 Sleep apnea, unspecified; Z87.442 Personal history of urinary calculi; Z98.84 Bariatric surgery status; Z96.653 Presence of artificial knee joint, bilateral; Z88.8 Allergy status to other drugs, medicaments and biological substances; Z88.5 Allergy status to narcotic agent; Z88.1 Allergy status to other antibiotic agents; Z88.0 Allergy status to penicillin; Z88.2 Allergy status to sulfonamides; Z79.82 Long term (current) use of aspirin; Z79.899 Other long term (current) drug therapy; Z80.8 Family history of malignant neoplasm of other organs or systems
CPT/HCPCS: G0121

== ENCOUNTER → 2017-12-22 | Outpatient (CLI) | payer MEDICARE, MEDICAID | LOC: M WHC 08:55 | DX: R92.2 Inconclusive mammogram (principal) | CPT/HCPCS: 77067 ==

== ENCOUNTER → 2017-12-28 | Outpatient (CLI) | payer MEDICARE, MEDICAID | LOC: M RAD 11:39 | DX: N20.0 Calculus of kidney (principal); N13.30 Unspecified hydronephrosis; R92.8 Other abnormal and inconclusive findings on diagnostic imaging of breast | CPT/HCPCS: 77065 ==

== ENCOUNTER → 2017-12-28 | Outpatient (CLI) | payer MEDICARE, MEDICAID | LOC: M RAD 11:29 | DX: R92.8 Other abnormal and inconclusive findings on diagnostic imaging of breast (principal) ==

== ENCOUNTER → 2017-12-28 | Outpatient (REF) | payer MEDICARE, MEDICAID ==
[2017-12-28 14:50] LABS: AMORPHOUS SEDIMENT SMALL (NEGATIVE); APPEARANCE, URINE HAZY (CLEAR); BACTERIA, URINE AUTO NEGATIVE (NEGATIVE); BILIRUBIN, URINE AUTO NEGATIVE (NEGATIVE); BLOOD, URINE BLOOD NEGATIVE (NEGATIVE); CALCIUM OXALATE CRYSTALS LARGE; COLOR, URINE YELLOW (YELLOW); GLUCOSE, URINE (UA) AUTO NEGATIVE (NEGATIVE); KETONE, URINE AUTO NEGATIVE (NEGATIVE); LEUKOCYTE ESTERASE, URINE AUTO TRACE (NEGATIVE); MUCUS, URINE SMALL (NEGATIVE); NITRITE, URINE AUTO NEGATIVE (NEGATIVE); PROTEIN, URINE AUTO NEGATIVE (NEGATIVE); RBC, URINE AUTO 2 /HPF (0-3); SPECIFIC GRAVITY URINE AUTO 1.016 (1.002-1.035); SQUAMOUS EPITHELIAL CELL UR AU 3 /HPF (0-6); UROBILINOGEN, URINE AUTO 0.2 mg/dL (0.0-2.0); WBC, URINE AUTO 6 /HPF (0-3)
== END ==
LOC: M SMT 13:11
DX: N20.0 Calculus of kidney (principal)

== ENCOUNTER → 2018-01-23 | Outpatient (CLI) | payer MEDICARE, MEDICAID ==
[~2018-01-23] MED LIST changes: +LIDOCAINE 1% MDV 20ML VIAL As Ordered; -METHACHOLINE KIT (J7674) INH
== END ==
LOC: M RADPRO 10:59
DX: N64.1 Fat necrosis of breast (principal); I48.91 Unspecified atrial fibrillation; G43.909 Migraine, unspecified, not intractable, without status migrainosus; F32.9 Major depressive disorder, single episode, unspecified; I10 Essential (primary) hypertension; Z79.82 Long term (current) use of aspirin; Z79.899 Other long term (current) drug therapy; Z88.0 Allergy status to penicillin; Z88.8 Allergy status to other drugs, medicaments and biological substances; Z98.84 Bariatric surgery status; Z96.653 Presence of artificial knee joint, bilateral; Z90.710 Acquired absence of both cervix and uterus; Z86.79 Personal history of other diseases of the circulatory system; Z86.14 Personal history of Methicillin resistant Staphylococcus aureus infection; Z62.810 Personal history of physical and sexual abuse in childhood
CPT/HCPCS: 19081

== ENCOUNTER → 2018-02-13 | Outpatient (REF) | payer MEDICARE, MEDICAID ==
[2018-02-13 12:06] LABS: BASO % 0.6 % (0.0-1.0); EOS # 0.1 10^3/uL (0.0-0.50); HEMATOCRIT 45.4 % (36.0-47.0); IMMATURE GRANULOCYTE % 0.3 % (0-3.0); LYMPH # 2.4 10^3/uL (1.5-4.5); LYMPH % 36.3 % (24.0-44.0); MEAN CORPUSCULAR HEMOGLOBIN 27.3 pg (27.0-33.0); MEAN CORPUSCULAR HGB CONC 30.8 g/dl (32.0-36.5); MEAN CORPUSCULAR VOLUME 88.7 fl (80.0-96.0); MONO # 0.6 10^3/uL (0.0-0.8); MONO % 9.4 % (0.0-5.0); NEUTROPHILS # 3.3 10^3/uL (1.8-7.7); NEUTROPHILS % 51.4 % (36.0-66.0); PLATELET COUNT, AUTOMATED 235 10^3/uL (150-450); RED BLOOD COUNT 5.12 10^6/uL (4.00-5.40); RED CELL DISTRIBUTION WIDTH 14.5 % (11.5-14.5); WHITE BLOOD COUNT 6.5 10^3/uL (4.0-10.0)
[2018-02-13 12:45] LABS: ERYTHROCYTE SEDIMENTATION RATE 12 mm/hr (0-30)
[2018-02-13 13:00] LABS: ALBUMIN 3.7 GM/DL (3.2-5.2); ALBUMIN/GLOBULIN RATIO 1.06 (1.00-1.93); ALKALINE PHOSPHATASE 138 U/L (45-117); ALT/SGPT 24 U/L (12-78); ANION GAP 8 MEQ/L (8-16); AST/SGOT 19 U/L (7-37); BILIRUBIN,TOTAL 0.7 MG/DL (0.2-1.0); BLOOD UREA NITROGEN 17 MG/DL (7-18); C REACTIVE PROTEIN QUANTITATIV 0.52 MG/DL (0.00-0.30); CALCIUM LEVEL 8.9 MG/DL (8.8-10.2); CARBON DIOXIDE LEVEL 29 MEQ/L (21-32); CHLORIDE LEVEL 103 MEQ/L (98-107); CREATININE FOR GFR 0.95 MG/DL (0.55-1.30); GLOMERULAR FILTRATION RATE > 60.0 (>45); GLUCOSE, FASTING 82 MG/DL (70-100); POTASSIUM SERUM 5.2 MEQ/L (3.5-5.1); SODIUM LEVEL 140 MEQ/L (136-145); TOTAL PROTEIN 7.2 GM/DL (6.4-8.2)
== END ==
LOC: M SFHCPLAZ 10:58
DX: I33.0 Acute and subacute infective endocarditis (principal); M10.9 Gout, unspecified; Z23 Encounter for immunization
CPT/HCPCS: 84550

== ENCOUNTER → 2018-03-01 | Outpatient (REF) | payer MEDICARE, MEDICAID ==
[2018-03-01 13:17] LABS: BASO # 0.1 10^3/uL (0.0-0.2); BASO % 0.7 % (0.0-1.0); EOS # 0.1 10^3/uL (0.0-0.50); HEMATOCRIT 46.6 % (36.0-47.0); HEMOGLOBIN 14.3 g/dl (12.0-15.5); IMMATURE GRANULOCYTE % 0.4 % (0-3.0); LYMPH % 29.2 % (24.0-44.0); MEAN CORPUSCULAR HEMOGLOBIN 27.9 pg (27.0-33.0); MEAN CORPUSCULAR HGB CONC 30.7 g/dl (32.0-36.5); MEAN CORPUSCULAR VOLUME 90.8 fl (80.0-96.0); MONO # 0.6 10^3/uL (0.0-0.8); NEUTROPHILS # 4.1 10^3/uL (1.8-7.7); NEUTROPHILS % 59.7 % (36.0-66.0); PLATELET COUNT, AUTOMATED 224 10^3/uL (150-450); RED BLOOD COUNT 5.13 10^6/uL (4.00-5.40); RED CELL DISTRIBUTION WIDTH 14.5 % (11.5-14.5); WHITE BLOOD COUNT 6.8 10^3/uL (4.0-10.0)
[2018-03-01 13:22] LABS: C REACTIVE PROTEIN QUANTITATIV 0.97 MG/DL (0.00-0.30)
[2018-03-01 14:09] LABS: ERYTHROCYTE SEDIMENTATION RATE 11 mm/hr (0-30)
== END ==
LOC: M SFHCPLAZ 09:50
DX: R59.0 Localized enlarged lymph nodes (principal)
CPT/HCPCS: 86140

== ENCOUNTER → 2018-03-28 | Outpatient (REF) | payer MEDICARE, MEDICAID | LOC: M SFHCPLAZ 16:50 | DX: I10 Essential (primary) hypertension (principal); Z53.8 Procedure and treatment not carried out for other reasons ==

== ENCOUNTER → 2018-04-06 | Outpatient (CLI) | payer MEDICARE, MEDICAID ==
[2018-04-06 11:49] LABS: ALBUMIN 3.3 GM/DL (3.2-5.2); ALBUMIN/GLOBULIN RATIO 1.03 (1.00-1.93); ALKALINE PHOSPHATASE 149 U/L (45-117); ALT/SGPT 25 U/L (12-78); ANION GAP 5 MEQ/L (8-16); AST/SGOT 18 U/L (7-37); BILIRUBIN,TOTAL 0.3 MG/DL (0.2-1.0); BLOOD UREA NITROGEN 15 MG/DL (7-18); CALCIUM LEVEL 8.8 MG/DL (8.8-10.2); CARBON DIOXIDE LEVEL 31 MEQ/L (21-32); CHLORIDE LEVEL 106 MEQ/L (98-107); CREATININE FOR GFR 0.93 MG/DL (0.55-1.30); GLOMERULAR FILTRATION RATE > 60.0 (>45); GLUCOSE, FASTING 117 MG/DL (70-100); POTASSIUM SERUM 4.8 MEQ/L (3.5-5.1); SODIUM LEVEL 142 MEQ/L (136-145); TOTAL PROTEIN 6.5 GM/DL (6.4-8.2)
== END ==
LOC: M LAB 09:53
DX: I10 Essential (primary) hypertension (principal); M19.012 Primary osteoarthritis, left shoulder
CPT/HCPCS: 73030

== ENCOUNTER 2018-04-25 07:11 | Emergency (ER) | payer MEDICARE, MEDICAID ==
[2018-04-25] MEDS: ONDANSETRON 4MG/2ML VIAL (J2405) IV (08:00)
[2018-04-25] MEDS: NS 1,000 ML IV (08:02)
[2018-04-25] MEDS: MORPHINE 4 MG/ML 1ML VIAL/SYRINGE (J2270) IV (08:03)
[2018-04-25] MEDS: diphenhydrAMINE INJ 50MG/ML VIAL (J1200) IV (08:13)
[2018-04-25] MEDS ORDERED: diphenhydrAMINE INJ 50MG/ML VIAL (J1200) IV (08:15)
[2018-04-25 08:31] LABS: BASO % 0.5 % (0.0-1.0); EOS # 0.1 10^3/uL (0.0-0.50); EOS % 1.9 % (0.0-3.0); HEMATOCRIT 43.9 % (36.0-47.0); HEMOGLOBIN 13.8 g/dl (12.0-15.5); IMMATURE GRANULOCYTE % 0.2 % (0-3.0); LYMPH # 1.5 10^3/uL (1.5-4.5); LYMPH % 23.7 % (24.0-44.0); MEAN CORPUSCULAR HEMOGLOBIN 28.5 pg (27.0-33.0); MEAN CORPUSCULAR HGB CONC 31.4 g/dl (32.0-36.5); MEAN CORPUSCULAR VOLUME 90.5 fl (80.0-96.0); MONO # 0.6 10^3/uL (0.0-0.8); MONO % 9.1 % (0.0-5.0); NEUTROPHILS # 4.2 10^3/uL (1.8-7.7); NEUTROPHILS % 64.6 % (36.0-66.0); PLATELET COUNT, AUTOMATED 199 10^3/uL (150-450); RED BLOOD COUNT 4.85 10^6/uL (4.00-5.40); RED CELL DISTRIBUTION WIDTH 14.1 % (11.5-14.5); WHITE BLOOD COUNT 6.5 10^3/uL (4.0-10.0)
[2018-04-25 08:50] LABS: KETONE, URINE AUTO RFX NEGATIVE (NEGATIVE); MUCUS, URINE RFX SMALL (NEGATIVE); NITRITE, URINE AUTO RFX NEGATIVE (NEGATIVE); RBC, URINE AUTO RFX 10 /HPF (0-3); SPECIFIC GRAVITY UR AUTO RFX 1.015 (1.002-1.035); SQUAM EPITHELIAL CELL UR AURFX 6 /HPF (0-6); WBC, URINE AUTO RFX 2 /HPF (0-3)
[2018-04-25 09:07] LABS: ALBUMIN 3.6 GM/DL (3.2-5.2); ALBUMIN/GLOBULIN RATIO 1.09 (1.00-1.93); ALKALINE PHOSPHATASE 146 U/L (45-117); ALT/SGPT 22 U/L (12-78); ANION GAP 5 MEQ/L (8-16); AST/SGOT 16 U/L (7-37); BILIRUBIN,DIRECT < 0.1 MG/DL (0.0-0.2); BILIRUBIN,TOTAL 0.4 MG/DL (0.2-1.0); BLOOD UREA NITROGEN 19 MG/DL (7-18); CALCIUM LEVEL 9.3 MG/DL (8.8-10.2); CARBON DIOXIDE LEVEL 31 MEQ/L (21-32); CHLORIDE LEVEL 103 MEQ/L (98-107); CREATININE FOR GFR 1.02 MG/DL (0.55-1.30); GLOMERULAR FILTRATION RATE 58.5 (>45); GLUCOSE, FASTING 101 MG/DL (70-100); LIPASE 116 U/L (73-393); POTASSIUM SERUM 4.6 MEQ/L (3.5-5.1); SODIUM LEVEL 139 MEQ/L (136-145); TOTAL PROTEIN 6.9 GM/DL (6.4-8.2)
[2018-04-25] MEDS: KETOROLAC 30 MG/ML VIAL (J1885) IV (09:43)
[2018-04-25 10:02] LABS: LEUKOCYTE ESTERASE UR AUTO RFX 1+ (NEGATIVE)
== END 2018-04-25 11:09 | disposition home or self-care (01) ==
LOC: M ED 07:11
DX: N20.1 Calculus of ureter (principal); I10 Essential (primary) hypertension; I48.91 Unspecified atrial fibrillation; F33.9 Major depressive disorder, recurrent, unspecified; D64.9 Anemia, unspecified; E66.8 Other obesity; I38 Endocarditis, valve unspecified; Z98.84 Bariatric surgery status; Z79.899 Other long term (current) drug therapy; Z79.82 Long term (current) use of aspirin; Z88.1 Allergy status to other antibiotic agents; Z88.2 Allergy status to sulfonamides; Z88.8 Allergy status to other drugs, medicaments and biological substances
CPT/HCPCS: J2270

== ENCOUNTER → 2018-06-18 | Outpatient (REF) | payer MEDICARE, MEDICAID ==
[~2018-06-18] MED LIST changes: +/LINE60TA PO; +/MOXI40TA OR; +/ONDA4TA OR; +ACET500C OR; +ACET50TA PO; +ACIDOPHILLUS PO; +AMIO200T37 PO; +ASPI1TAB PO; +ATEN50TA2 PO; +AVAP150T31 PO; +B12-1CHW PO; +BACL10TA2 PO; +BUPR300T34 PO; +BUSP30TA PO; +CALC1TAB30 PO; +CALC600T60 PO; +CALC600T7 PO; +CALCTAB75 PO; +CATA0.1T PO; +CEPH500C PO; +CIPR500T4 OR; +CLON0.3T PO; +CYCL10TA PO; +DETR4CAP OR; +DILA2TAB OR; +DOXY100T OR; +DOXY150C PO; +DULO1CAP2 PO; +DULO1CAP3 PO; +DULO30CA PO; +FERR325T3 PO; +FLAG500T PO; +FLOM0.4C39 PO; +FLUC100T; +FOLI1TAB11 PO; +HYDR-3713 PO; +HYDR25TA6; +IBUP600T OR; +LEVA250T13 PO; -LIDOCAINE 1% MDV 20ML VIAL As Ordered; +LINE600T11 PO; +MACR100C43 PO; +MACRODANTIN OR; +MAGN1CAP PO; +MAGN400C2 PO; +MAGN500T5 PO; +METO25TA4 PO; +METO50TA7 PO; +MUCINEX PO; +Motrin PO; +NORC1TAB4 PO; +NORCOTAB PO; +NYST1POW9; +OXAY1TAB; +OXYC1TAB23 PO; +Ondansetron PO; +PERC5TAB12 PO; +PERC5TAB8 OR; +PRED10TA2 OR; +PRED20TA PO; +PROT1TAB2 PO; +Percocet PO; +REQU5TAB PO; +RIBO400T PO; +ROBA500T PO; +ROPI5TAB3; +SUMA4INJ4; +TAB-TAB PO; +TRIA1OI TOP; +TYLE325T5 PO; +TYLENOL #3 OR; +VALS1TAB46 PO; +VICO5TAB OR; +VITA1CAP2 PO; +VITA200015 PO; +VITA500C PO; +VITA500C10 PO; +VITA500T3 PO; +WELLTAB38 PO; +WELLTAB40; +WELLTAB40 PO; +ZETI10TA30 PO; +ZOFR8TAB4 SL; +[UNRECOGNIZED DRUG - OTHER]; +cipro OR
[2018-06-18 14:24] LABS: C REACTIVE PROTEIN QUANTITATIV 0.85 MG/DL (0.00-0.30); URIC ACID 5.6 MG/DL (2.6-6.0)
[2018-06-18 14:28] LABS: BASO # 0.1 10^3/uL (0.0-0.2); BASO % 0.6 % (0.0-1.0); EOS # 0.2 10^3/uL (0.0-0.50); EOS % 2.7 % (0.0-3.0); HEMATOCRIT 47.2 % (36.0-47.0); HEMOGLOBIN 14.6 g/dl (12.0-15.5); LYMPH # 2.3 10^3/uL (1.5-4.5); LYMPH % 29.5 % (24.0-44.0); MEAN CORPUSCULAR HEMOGLOBIN 28.5 pg (27.0-33.0); MEAN CORPUSCULAR HGB CONC 30.9 g/dl (32.0-36.5); MEAN CORPUSCULAR VOLUME 92.2 fl (80.0-96.0); MONO # 0.7 10^3/uL (0.0-0.8); MONO % 8.4 % (0.0-5.0); NEUTROPHILS # 4.5 10^3/uL (1.8-7.7); NEUTROPHILS % 58.3 % (36.0-66.0); PLATELET COUNT, AUTOMATED 214 10^3/uL (150-450); RED BLOOD COUNT 5.12 10^6/uL (4.00-5.40); WHITE BLOOD COUNT 7.7 10^3/uL (4.0-10.0)
[2018-06-18 15:40] LABS: ERYTHROCYTE SEDIMENTATION RATE 15 mm/hr (0-30)
[2018-06-23 00:06] LABS: ANA (HEP2) Positive (.)
== END ==
LOC: M SFHCPLAZ 12:57
PROVIDERS: ATTEND Family Medicine
DX: D69.2 Other nonthrombocytopenic purpura (principal); M79.674 Pain in right toe(s)
CPT/HCPCS: 36415; 84550; 85025; 85652; 86038; 86140; G0463

== ENCOUNTER → 2018-07-03 | Outpatient (CLI) | payer MEDICARE, MEDICAID ==
[~2018-07-03] MED LIST changes: +ISOVUE-370 76% 100ML VIAL (Q9967) As Ordered ONE
--- NOTE | 2018-07-03 14:55 | REP ---
CT ANGIOGRAM ABDOMINAL AORTA AND BILATERAL RUNOFF ARTERIOGRAM: 07/03/2018. Clinical history: Atherosclerosis of the aorta with cyanosis. Technique: Bolus of 100 mL Isovue 370 scanning through the abdomen pelvis and lower extremities with our CT angiogram protocol. Coronal and sagittal standard reconstructions with coronal MIP reformats and curved reformat of the aorta and iliac vessels bilaterally. 3D reconstruction of the volume image set also performed. Comparison: CT abdomen pelvis without contrast 04/25/2018. Nonvascular findings: CT abdomen: Lung bases with minor dependent atelectatic change. No acute finding. Heart mildly enlarged. There is left atrial ventricular enlargement. No pericardial thickening or effusion. There is hepatomegaly with a right hepatic lobe about 21 cm in midclavicular line. Spleen is not enlarged. There is no hepatic or splenic lesion. Gallbladder shows no calcified stone or mass. Surgical clips about the GE junction and stomach in the left upper quadrant. Pancreas unremarkable. Adrenal glands normal. Kidneys show function with slight to lobation and some minor scarring lower pole on the right. No stone, mass or hydronephrosis. Small bowel loops and colon grossly intact. Diastases of the rectus muscle with large ventral abdominal wall hernia with most of the small bowel loops and some colon in this markedly diastatic ventral hernia. This is unchanged. The lungs show degenerative disc and facet arthritic changes with a few millimeters of anterolisthesis of L3 on L4, unchanged. There is hypertrophic facet change. Visualized ribs are intact. CT pelvis: There bilateral total knee arthroplasties are seen and these obscure the popliteal arteries bilateral total knee arthroplasties are seen in these obscure the popliteal arteries in this region. The anterior posterior compartment musculature appeared symmetric. There is no mass. The subcutaneous fat. no ureteral dilatation or stone. Bladder unremarkable. The bony pelvis shows the hips, SI joints and sacrum intact. There is sclerosis and facet arthritis lower lumbar spine at L5-S1. Sacralization of transverse process of L5 on the left. Hips intact. The lower abdomen and pelvis does not show herniation ventrally. No inguinal hernia or adenopathy. No pelvic lymphadenopathy. Bladder only partially filled without mass, wall thickening or stone. Uterus absent and the vaginal cuff intact. Distal left colon, sigmoid and rectum intact. Abdominal portions of colon and small bowel also unremarkable. Bilateral lower extremities: The bilateral lower extremities show a total knee arthroplasties obscuring fine detail in these regions. The anterior posterior compartment muscles of the thigh and lower leg on each side were symmetric. Some subcutaneous edema adjacent to the superficial fascia in the calves noted, left slightly greater than right. No evidence of fluid collection to suggest abscess. There is no subcutaneous emphysema. The visualized bones show some degenerative changes of the hind foot and ankle. Impression: 1. Large diastatic midline ventral hernia or umbilical supraumbilical region with most of the abdominal small bowel loops and portion of colon within. 2. Hepatomegaly without focal hepatic mass. There is no ascites. 3. No renal stone, mass or hydronephrosis on these images. There is scarring lower pole on the right kidney and lobation. 4. Hysterectomy. Degenerative disc and facet changes. Vascular findings: Abdominal aorta: The abdominal aorta shows no evidence of aneurysm or dissection. There is no significant atherosclerotic plaque or stenosis. Iliac vessels: The right common iliac is without stenosis or aneurysm. The external iliac and internal iliac vessels also show no stenosis or aneurysm. I see no calcified plaque. The left common iliac without stenosis or aneurysm. The external iliac and internal iliac vessels also show no stenosis or aneurysm. I see no calcified plaque. The common femoral arteries are grossly intact. The profunda femoris arteries are also grossly intact. Flow is seen in the superficial femoral artery of the deep system in the thigh to the popliteal artery after which the popliteal artery is lost to spray artifact from the bilateral knee arthroplasties. Below this very poor contrast density for evaluation of runoff to the feet. The study is nondiagnostic below the knee. Impression: 1. There is no aortic, iliac, common or superficial femoral stenosis, aneurysm or significant plaque. 2. Popliteal artery is obscured by the bilateral total knee arthroplasties. Runoff to the lower extremities cannot be evaluated due to poor contrast density. Electronically Signed by Eliezer Mcbride MD 07/03/2018 05:55 P
== END ==
LOC: M RAD 08:50
PROVIDERS: ATTEND Surgery Vascular Surgery
DX: I70.0 Atherosclerosis of aorta (principal)
CPT/HCPCS: 75635; Q9967

== ENCOUNTER 2018-09-10 08:10 | Emergency (ER) | payer MEDICARE, MEDICAID ==
[~2018-09-10] VITALS: Ht 162.6 cm; Wt 179.2 kg
[~2018-09-10 08:10] MED LIST changes: -/LINE60TA PO; -/MOXI40TA OR; -/ONDA4TA OR; -ACET50TA PO; -ASPI1TAB PO; +ASPI81TA26 PO; +AVEL1TAB2 OR; -DULO30CA PO; +DULO30CA9 PO; +HYDR-3715 PO; -ISOVUE-370 76% 100ML VIAL (Q9967) As Ordered ONE; +MAPA500T17 PO; -NORC1TAB4 PO; +NORC1TAB7 PO; -NORCOTAB PO; +ONDA-1 OR; -VALS1TAB46 PO; +VALS1TAB66 PO; +VITA-183 PO; -VITA1CAP2 PO; -ZOFR8TAB4 SL; +ZYVO100T PO; +[UNRECOGNIZED DRUG - CODE] SL
[2018-09-10] MEDS ORDERED: KETOROLAC 30 MG/ML VIAL (J1885) IV ONE (08:30)
[2018-09-10] MEDS ORDERED: NS 1,000 ML IV ONE (08:30)
[2018-09-10] MEDS ORDERED: ONDANSETRON 4MG/2ML VIAL (J2405) IV ONE (08:30)
--- NOTE | 2018-09-10 09:49 | REP ---
CT ABDOMEN AND PELVIS WITHOUT CONTRAST: CT abdomen and pelvis is performed without oral or IV contrast. Sagittal and coronal reconstruction images are performed. Comparison is made with prior studies 07/03/2018 and 04/25/2018. Dependant atelectatic changes are seen in the visualized lung bases. No gross abnormality is seen of the liver, spleen, adrenals, or pancreas. Right kidney demonstrates 3 subcentimeter intrarenal calculi inferiorly without hydronephrosis. The left kidney demonstrates a tiny intrarenal calculus in the lower pole as well as a posterior cyst which measures approximately 2 cm. There is mild left hydronephrosis caused by a 2 mm stone in the proximal left ureter. Urinary bladder is not well distended, with no gross calculus. There is no abdominal aortic aneurysm. I see no adenopathy. There is no free air or free fluid. No bowel thickening is seen. There is again diastasis of the rectus muscles. There is no definite pelvic mass. There are degenerative changes of the spine. IMPRESSION: There is a 2 mm stone in the proximal left ureter causing mild left hydronephrosis. There are bilateral subcentimeter intrarenal calculi. No right hydronephrosis. No other acute finding. Electronically Signed by Alex Meeks MD 09/10/2018 04:21 P
[2018-09-10 09:53] LABS: BASO % 0.4 % (0.0-1.0); EOS # 0.1 10^3/uL (0.0-0.50); HEMATOCRIT 42.5 % (36.0-47.0); HEMOGLOBIN 13.5 g/dl (12.0-15.5); LYMPH # 1.4 10^3/uL (1.5-4.5); LYMPH % 24.6 % (24.0-44.0); MEAN CORPUSCULAR HEMOGLOBIN 29.3 pg (27.0-33.0); MEAN CORPUSCULAR HGB CONC 31.8 g/dl (32.0-36.5); MEAN CORPUSCULAR VOLUME 92.2 fl (80.0-96.0); MONO # 0.4 10^3/uL (0.0-0.8); MONO % 7.8 % (0.0-5.0); NEUTROPHILS # 3.5 10^3/uL (1.8-7.7); NEUTROPHILS % 64.5 % (36.0-66.0); PLATELET COUNT, AUTOMATED 156 10^3/uL (150-450); RED BLOOD COUNT 4.61 10^6/uL (4.00-5.40); WHITE BLOOD COUNT 5.5 10^3/uL (4.0-10.0)
[2018-09-10] MEDS ORDERED: MORPHINE 4 MG/ML 1ML VIAL/SYRINGE (J2270) IV ONE (10:15)
[2018-09-10 10:22] LABS: ALBUMIN 3.3 GM/DL (3.2-5.2); ALT/SGPT 32 U/L (12-78); AMYLASE 36 U/L (25-115); BILIRUBIN,DIRECT < 0.1 MG/DL (0.0-0.2); BILIRUBIN,TOTAL 0.4 MG/DL (0.2-1.0); BLOOD UREA NITROGEN 14 MG/DL (7-18); CALCIUM LEVEL 8.9 MG/DL (8.8-10.2); CARBON DIOXIDE LEVEL 28 MEQ/L (21-32); CHLORIDE LEVEL 106 MEQ/L (98-107); CREATININE FOR GFR 1.05 MG/DL (0.55-1.30); GLOMERULAR FILTRATION RATE 56.5 (>45); GLUCOSE, FASTING 114 MG/DL (70-100); LIPASE 80 U/L (73-393); POTASSIUM SERUM 4.7 MEQ/L (3.5-5.1); SODIUM LEVEL 138 MEQ/L (136-145); TOTAL PROTEIN 7.3 GM/DL (6.4-8.2)
[2018-09-10] MEDS ORDERED: diphenhydrAMINE INJ 50MG/ML VIAL (J1200) IV ONE (10:30)
[2018-09-10] MEDS ORDERED: PERC5TAB12 PO (11:14)
[2018-09-10] MEDS ORDERED: FLOM0.4C39 PO (11:14)
[2018-09-10] MEDS ORDERED: ONDA4TAB6 PO (11:15)
[2018-09-10 11:32] VITALS: BP 126/76
== END 2018-09-10 11:34 | disposition home or self-care (01) ==
LOC: M ED 08:10
DX: N20.1 Calculus of ureter (principal); N13.30 Unspecified hydronephrosis; I10 Essential (primary) hypertension; E11.9 Type 2 diabetes mellitus without complications; G90.09 Other idiopathic peripheral autonomic neuropathy; G43.909 Migraine, unspecified, not intractable, without status migrainosus; M54.9 Dorsalgia, unspecified; F43.10 Post-traumatic stress disorder, unspecified; Z86.14 Personal history of Methicillin resistant Staphylococcus aureus infection; Z98.84 Bariatric surgery status; Z96.0 Presence of urogenital implants; Z79.891 Long term (current) use of opiate analgesic; Z79.899 Other long term (current) drug therapy; Z88.2 Allergy status to sulfonamides; Z88.5 Allergy status to narcotic agent; Z88.1 Allergy status to other antibiotic agents
CPT/HCPCS: 74176; 80048; 80076; 81001; 82150; 83690; 85025; 87086; 96361; 96374; 96375; 99284; J1200; J1885; J2270; J2405

== ENCOUNTER → 2018-09-12 | Outpatient (CLI) | payer MEDICARE, OTHER ==
[~2018-09-12] MED LIST changes: +ONDA4TAB6 PO
[2018-09-12 08:53] LABS: BASO % 0.5 % (0.0-1.0); EOS # 0.2 10^3/uL (0.0-0.50); EOS % 2.9 % (0.0-3.0); HEMATOCRIT 42.7 % (36.0-47.0); HEMOGLOBIN 13.2 g/dl (12.0-15.5); LYMPH # 1.5 10^3/uL (1.5-4.5); LYMPH % 26.2 % (24.0-44.0); MEAN CORPUSCULAR HEMOGLOBIN 28.6 pg (27.0-33.0); MEAN CORPUSCULAR HGB CONC 30.9 g/dl (32.0-36.5); MEAN CORPUSCULAR VOLUME 92.4 fl (80.0-96.0); MONO # 0.6 10^3/uL (0.0-0.8); MONO % 9.6 % (0.0-5.0); NEUTROPHILS # 3.5 10^3/uL (1.8-7.7); NEUTROPHILS % 60.3 % (36.0-66.0); PLATELET COUNT, AUTOMATED 176 10^3/uL (150-450); RED BLOOD COUNT 4.62 10^6/uL (4.00-5.40); WHITE BLOOD COUNT 5.8 10^3/uL (4.0-10.0)
[2018-09-12 09:28] LABS: ALBUMIN 3.5 GM/DL (3.2-5.2); ALT/SGPT 25 U/L (12-78); BILIRUBIN,TOTAL 0.5 MG/DL (0.2-1.0); BLOOD UREA NITROGEN 16 MG/DL (7-18); C REACTIVE PROTEIN QUANTITATIV 1.83 MG/DL (0.00-0.30); CALCIUM LEVEL 9.4 MG/DL (8.8-10.2); CARBON DIOXIDE LEVEL 30 MEQ/L (21-32); CHLORIDE LEVEL 105 MEQ/L (98-107); CREATININE FOR GFR 1.14 MG/DL (0.55-1.30); FREE T4 0.98 NG/DL (0.76-1.46); GLOMERULAR FILTRATION RATE 51.4 (>45); GLUCOSE, FASTING 88 MG/DL (70-100); POTASSIUM SERUM 4.3 MEQ/L (3.5-5.1); RHEUMATOID FACTOR QUANT < 10.0 IU/ML (<15.0); SODIUM LEVEL 141 MEQ/L (136-145); TOTAL PROTEIN 6.3 GM/DL (6.4-8.2)
[2018-09-12 09:59] LABS: ERYTHROCYTE SEDIMENTATION RATE 21 mm/hr (0-30)
[2018-09-13 14:51] LABS: ANTI DOUBLE STRAND-DNA AB 1 IU/mL (0-9); ANTINUCLEAR ANTIBODIES DIRECT Positive (Negative); RNP ANTIBODIES 0.3 AI (0.0-0.9); SJOGREN'S ANTI SS-A <0.2 AI (0.0-0.9); SJOGREN'S ANTI SS-B <0.2 AI (0.0-0.9); SMITH ANTIBODIES 0.5 AI (0.0-0.9)
== END ==
LOC: M LAB 07:27
PROVIDERS: ATTEND Physician Assistant
DX: I70.213 Atherosclerosis of native arteries of extremities with intermittent claudication, bilateral legs (principal)

== ENCOUNTER → 2018-09-14 | Outpatient (REF) | payer MEDICARE, OTHER ==
[2018-09-14 13:37] LABS: AMORPHOUS SEDIMENT SMALL (NEGATIVE); APPEARANCE, URINE HAZY (CLEAR); BACTERIA, URINE AUTO NEGATIVE (NEGATIVE); BILIRUBIN, URINE AUTO NEGATIVE (NEGATIVE); BLOOD, URINE BLOOD 1+ (NEGATIVE); COLOR, URINE YELLOW (YELLOW); GLUCOSE, URINE (UA) AUTO NEGATIVE (NEGATIVE); KETONE, URINE AUTO NEGATIVE (NEGATIVE); LEUKOCYTE ESTERASE, URINE AUTO TRACE (NEGATIVE); MUCUS, URINE SMALL (NEGATIVE); NITRITE, URINE AUTO NEGATIVE (NEGATIVE); PROTEIN, URINE AUTO NEGATIVE (NEGATIVE); RBC, URINE AUTO 40 /HPF (0-3); SPECIFIC GRAVITY URINE AUTO 1.012 (1.002-1.035); SQUAMOUS EPITHELIAL CELL UR AU 3 /HPF (0-6); UROBILINOGEN, URINE AUTO 0.2 mg/dL (0.0-2.0); WBC, URINE AUTO 14 /HPF (0-3)
== END ==
LOC: M SMT 12:45
PROVIDERS: ATTEND Nurse Practitioner Family
DX: N20.0 Calculus of kidney (principal)

== ENCOUNTER 2018-09-21 20:06 | Observation (INO) | payer MEDICARE, MEDICAID ==
[~2018-09-21] VITALS: Ht 162.6 cm; Wt 181.0 kg
[~2018-09-21 20:06] MED LIST changes: +TAMSULOSIN 0.4 MG CAP PO SCH
[2018-09-21] MEDS ORDERED: rOPINIRole 1MG TAB PO SCH (21:00)
[2018-09-21] MEDS: busPIRone 10 MG TAB PO SCH (21:00)
[2018-09-21] MEDS ORDERED: DULoxetine 30 MG CAP (CYMBALTA) PO SCH (21:00)
[2018-09-21] MEDS: MUPIROCIN 2% OINT 22 GM TUBE TOP SCH (21:00)
[2018-09-21 21:37] LABS: BASO % 0.2 % (0.0-1.0); HEMATOCRIT 39.8 % (36.0-47.0); HEMOGLOBIN 12.6 g/dl (12.0-15.5); LYMPH % 16.8 % (24.0-44.0); MEAN CORPUSCULAR HEMOGLOBIN 29.6 pg (27.0-33.0); MEAN CORPUSCULAR HGB CONC 31.7 g/dl (32.0-36.5); MEAN CORPUSCULAR VOLUME 93.4 fl (80.0-96.0); MONO # 0.4 10^3/uL (0.0-0.8); MONO % 6.5 % (0.0-5.0); NEUTROPHILS # 4.4 10^3/uL (1.8-7.7); NEUTROPHILS % 75.8 % (36.0-66.0); PLATELET COUNT, AUTOMATED 179 10^3/uL (150-450); RED BLOOD COUNT 4.26 10^6/uL (4.00-5.40); WHITE BLOOD COUNT 5.7 10^3/uL (4.0-10.0)
[2018-09-21 21:49] LABS: CALCIUM LEVEL 8.6 MG/DL (8.8-10.2); CREATININE FOR GFR 1.02 MG/DL (0.55-1.30); GLOMERULAR FILTRATION RATE 58.5 (>45); POTASSIUM SERUM 4.7 MEQ/L (3.5-5.1)
[2018-09-21] MEDS ORDERED: ISOVUE-370 76% 100ML VIAL (Q9967) As Ordered ONE (22:06)
[2018-09-21] MEDS ORDERED: KETOROLAC 30 MG/ML VIAL (J1885) IV ONE (22:45)
--- NOTE | 2018-09-21 22:53 | REPVR ---
EXAM: CT Angiography Chest With Contrast EXAM DATE/TIME: 09/21/2018 10:29 PM CLINICAL HISTORY: 62 years old, female; Signs and symptoms; Dyspnea; Additional info: Dysp TECHNIQUE: Imaging protocol: Axial computed tomographic angiography images of the chest with intravenous contrast using CT angiography protocol. Coronal and sagittal reformatted images were created and reviewed. 3D rendering: MIP reconstructed images were created and reviewed. Radiation optimization: All CT scans at this facility use at least one of these dose optimization techniques: automated exposure control; mA and/or kV adjustment per patient size (includes targeted exams where dose is matched to clinical indication); or iterative reconstruction. Contrast material: ISOVUE 370; Contrast volume: 75 ml; Contrast route: IV; COMPARISON: CT ANGIO CHEST 10/06/2017 4:59 PM FINDINGS: Pulmonary arteries: Evaluation of the pulmonary arteries limited by the presence of motion and streak artifact. Possible small embolus in a segmental branch to the left lower lobe (series 501 image 86). Aorta: The aorta demonstrates mild atherosclerotic calcification. There is no aortic dissection or aneurysm. Status post aortic valve replacement. Lungs: Parenchymal opacity right lung base may represent atelectasis although a focus of pneumonitis to be excluded clinically. Finding not demonstrated on the prior exam of 2018. Pleural space: Normal. No pneumothorax. No pleural effusion. Heart: Normal. No cardiomegaly. No pericardial effusion. Lymph nodes: Unremarkable. No enlarged lymph nodes. Bones/joints: Unremarkable. No acute fracture. Soft tissues: Unremarkable. IMPRESSION: 1. Evaluation of the pulmonary arteries limited by the presence of motion and streak artifact. Possible small embolus in a segmental branch to the left lower lobe. 2. There is no aortic dissection or aneurysm. A critical call has been made to speak with the ordering physician/practitioner. This report will be amended once consultation has occurred. Electronically signed by: Jose Dominguez On 09/21/2018 22:52:34 PM
[2018-09-21] MEDS ORDERED: APIXABAN 5 MG TAB (ELIQUIS) PO ONE (23:15)
[2018-09-21] MEDS ORDERED: BUTA-198 PO (23:53)
[2018-09-21] MEDS ORDERED: ZANTTAB PO (23:53)
[2018-09-21] MEDS ORDERED: ACET1TAB55 PO (23:53)
[2018-09-21] MEDS ORDERED: PLAV1TAB2 PO (23:53)
[2018-09-21] MEDS ORDERED: ASCO500T PO (23:53)
[2018-09-21] MEDS ORDERED: NYST1POW9 TOP (23:53)
[2018-09-21] MEDS ORDERED: FLOM0.4C39 PO (23:53)
[2018-09-21] MEDS ORDERED: MUPI2OI TOP (23:53)
[2018-09-21] MEDS ORDERED: THERTAB56 PO (23:53)
[2018-09-21] MEDS ORDERED: B-122500 PO (23:53)
[2018-09-21] MEDS ORDERED: VITA200012 PO (23:53)
[2018-09-21] MEDS ORDERED: OXYC1TAB23 PO (23:53)
[2018-09-22] VITALS (8 sets, daily range): BP systolic 119–141; BP diastolic 65–76; O2SAT 95–99
[2018-09-22] MEDS ORDERED: ACETAMINOPHEN TAB 650MG DOSE (2X325MG) PO PRN
[2018-09-22] MEDS ORDERED: NYSTATIN 100,000 UNITS/GM TOPICAL PWD 15 GM TOP PRN (00:15)
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
[2018-09-22 05:26] LABS: HEMATOCRIT 39.9 % (36.0-47.0); HEMOGLOBIN 12.3 g/dl (12.0-15.5); MEAN CORPUSCULAR HGB CONC 30.8 g/dl (32.0-36.5); MEAN CORPUSCULAR VOLUME 94.1 fl (80.0-96.0); PLATELET COUNT, AUTOMATED 171 10^3/uL (150-450); RED BLOOD COUNT 4.24 10^6/uL (4.00-5.40); WHITE BLOOD COUNT 6.6 10^3/uL (4.0-10.0)
[2018-09-22 05:48] LABS: CALCIUM LEVEL 8.7 MG/DL (8.8-10.2); CREATININE FOR GFR 1.09 MG/DL (0.55-1.30); GLOMERULAR FILTRATION RATE 54.1 (>45); POTASSIUM SERUM 3.9 MEQ/L (3.5-5.1)
[2018-09-22] MEDS: KETOROLAC 30 MG/ML VIAL (J1885) IV SCH ×2 (05:54→12:46)
--- NOTE | 2018-09-22 08:38 | REP ---
Portable chest x-ray: Single view. History: Dyspnea. Comparison study: October 06, 2017. Findings: EKG monitoring electrodes overlie the chest. Median sternotomy wires are seen. Heart size is borderline. Pulmonary vasculature is somewhat cephalized. There is no evidence of pulmonary edema or pleural effusion. No focal infiltrate is seen. Oxygen delivery tubing is noted. Advanced arthropathy changes are seen in the right shoulder. Impression: Borderline heart size with pulmonary vascular congestion. No pulmonary edema or pleural effusion. Electronically Signed by Tanner Dixon MD 09/22/2018 08:29 A
[2018-09-22] MEDS ORDERED: MULTIVITAMINS/MINERALS THERAP 1 TAB PO SCH (09:00)
[2018-09-22] MEDS ORDERED: CALCIUM/VITAMIN D 500 MG TAB PO SCH (09:00)
[2018-09-22] MEDS ORDERED: VITAMIN D 1,000 INTERNATIONAL UNITS TABLET PO SCH (09:00)
[2018-09-22] MEDS ORDERED: MAGNESIUM OXIDE 400 MG TAB (MAG-OX) PO SCH (09:00)
[2018-09-22] MEDS ORDERED: ASPIRIN 81 MG ENTERIC TAB PO SCH (09:00)
[2018-09-22] MEDS ORDERED: CYANOCOBALAMIN 500 MCG TAB PO SCH (09:00)
[2018-09-22] MEDS ORDERED: buPROPion **XL** TABLET 150MG (WELLBUTRIN XL) PO SCH (09:00)
[2018-09-22] MEDS ORDERED: buPROPion 75 MG TAB PO SCH (09:00)
[2018-09-22] MEDS: MUPIROCIN 2% OINT 22 GM TUBE TOP SCH (09:00)
[2018-09-22] MEDS ORDERED: DULoxetine 30 MG CAP (CYMBALTA) PO SCH (09:00)
[2018-09-22] MEDS ORDERED: ASCORBIC ACID 500 MG TAB PO SCH (09:00)
[2018-09-22] MEDS ORDERED: FOLIC ACID 1 MG TAB PO SCH (09:00)
[2018-09-22] MEDS ORDERED: APIXABAN 2.5 MG TAB (ELIQUIS) PO SCH ×2 (09:00)
[2018-09-22] MEDS: busPIRone 10 MG TAB PO SCH (10:44)
[2018-09-22] MEDS ORDERED: ELIQ5TAB PO (11:58)
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
[2018-09-23] MEDS ORDERED: ELIQ5TAB PO (18:26)
== END 2018-09-22 15:46 | disposition home or self-care (01) ==
LOC: M ED 20:06 → M ED INP 20:07 → M PCU 09-22 02:05
PROVIDERS: ADMIT Internal Medicine; ATTEND Internal Medicine
DX: I26.99 Other pulmonary embolism without acute cor pulmonale (principal); E66.01 Morbid (severe) obesity due to excess calories; G62.9 Polyneuropathy, unspecified; M54.30 Sciatica, unspecified side; M51.36 Other intervertebral disc degeneration, lumbar region; I10 Essential (primary) hypertension; I73.9 Peripheral vascular disease, unspecified; Z86.14 Personal history of Methicillin resistant Staphylococcus aureus infection; Z91.411 Personal history of adult psychological abuse; Z62.810 Personal history of physical and sexual abuse in childhood; Z87.442 Personal history of urinary calculi; Z79.01 Long term (current) use of anticoagulants; Z79.82 Long term (current) use of aspirin; Z79.899 Other long term (current) drug therapy; Z88.0 Allergy status to penicillin; Z88.2 Allergy status to sulfonamides; Z88.8 Allergy status to other drugs, medicaments and biological substances
CPT/HCPCS: 36415; 71045; 71275; 80048; 85025; 85027; 96374; 96376; 97161; 99285; G0378; J1885; Q9967

== ENCOUNTER 2018-09-24 12:21 | Emergency (ER) | payer MEDICARE, MEDICAID ==
[~2018-09-24] VITALS: Ht 162.6 cm; Wt 177.7 kg
[~2018-09-24 12:21] MED LIST changes: +ACET1TAB55 PO; +ASCO500T PO; +B-122500 PO; +BUTA-198 PO; +ELIQ5TAB PO; +MUPI2OI TOP; +NYST1POW9 TOP; +PLAV1TAB2 PO; -TAMSULOSIN 0.4 MG CAP PO SCH; +THERTAB56 PO; +VITA200012 PO; +ZANTTAB PO
[2018-09-24 13:16] LABS: HEMATOCRIT 44.4 % (36.0-47.0); MEAN CORPUSCULAR HEMOGLOBIN 28.7 pg (27.0-33.0); MEAN CORPUSCULAR HGB CONC 31.5 g/dl (32.0-36.5); PLATELET COUNT, AUTOMATED 200 10^3/uL (150-450); RED BLOOD COUNT 4.88 10^6/uL (4.00-5.40)
--- NOTE | 2018-09-24 13:18 | REP ---
Portable chest x-ray: Single view. History: Shortness of breath. Comparison study: September 21, 2018. Findings: EKG monitoring electrodes overlie the chest. The heart is mildly enlarged unchanged. Median sternotomy wires are again seen. Right hemidiaphragm remains somewhat elevated. There is plate-like atelectasis above it in the right base. Pulmonary vasculature is not increased. Impression: Elevated right hemidiaphragm with plate-like atelectasis right base. Prior sternotomy. Cardiomegaly. Otherwise no acute changes. Electronically Signed by Tanner Dixon MD 09/24/2018 01:10 P
[2018-09-24 13:23] LABS: ABG BASE EXCESS 1.1 (-2.0-2.0); ABG HCO3 24.3 MEQ/L (22.0-26.0); ABG O2 SATURATION 98.9 % (95.0-99.0); ABG PARTIAL PRESSURE CO2 34.2 mmHg (35.0-45.0); ABG PARTIAL PRESSURE O2 139.8 mmHg (75.0-100.0); ABG STANDARD HCO3 25.5 MEQ/L (22.0-26.0); ABG TOTAL CO2 25.3 MEQ/L (23.0-31.0); ABG pH (ARTERIAL) 7.469 UNITS (7.350-7.450)
[2018-09-24 13:25] LABS: INR 1.04; PROTHROMBIN TIME 13.7 SECONDS (12.1-14.4)
[2018-09-24 13:48] LABS: BLOOD UREA NITROGEN 12 MG/DL (7-18); CALCIUM LEVEL 9.4 MG/DL (8.8-10.2); CARBON DIOXIDE LEVEL 28 MEQ/L (21-32); CHLORIDE LEVEL 106 MEQ/L (98-107); CPK CREATINE PHOSPHOKINASE 169 U/L (26-192); CREATININE FOR GFR 0.92 MG/DL (0.55-1.30); GLOMERULAR FILTRATION RATE > 60.0 (>45); GLUCOSE, FASTING 93 MG/DL (70-100); SODIUM LEVEL 139 MEQ/L (136-145); TROPONIN I < 0.02 NG/ML (< 0.10)
[2018-09-24 14:12] VITALS: O2SAT 91
[2018-09-24] MEDS ORDERED: LORazepam 2 MG/ML VIAL (J2060) IV STA (14:50)
[2018-09-24] MEDS ORDERED: ISOVUE-370 76% 100ML VIAL (Q9967) As Ordered ONE (15:27)
--- NOTE | 2018-09-24 15:37 | ECGEPIP ---
Stationary ECG Study [facility] - ED Test Date: 2018-09-24 Pat Name: COURTNEY STARR Department: Room: - Gender: F [employer] Turning [employer] Feeder: PILLO : [id number] Requested By: Mitchel Knutson Order Number: [id number] Reading MD: Ana Ragland Measurements Intervals [place] Rate: 85 P: 34 MI: 169 QRS: 45 QRSD: 114 T: 62 QT: 377 QTc: 449 Interpretive Statements SINUS RHYTHM POSSIBLE RIGHT VENTRICULAR CONDUCTION DELAY INCREASED RATE 10/06/17 Electronically Signed On 09-24-2018 15:37:27 EDT by Ana Ragland
--- NOTE | 2018-09-24 17:19 | REP ---
CT ANGIO CHEST: HISTORY: Shortness of breath. CONTRAST: Isovue-370 100 mL. COMPARISON: 09/21/2018 There is no intravascular contrast material. The lungs are clear. There is no pleural effusion. The heart is normal in size. There is no pericardial effusion. There is no aneurysm. Atherosclerotic calcification is present in the thoracic aorta. Degenerative change is present in the spine. IMPRESSION: There is no intravascular contrast material. This is likely due to infiltration at the injection site. Electronically Signed by Omar Blanc MD 09/24/2018 05:26 P
[2018-09-24 19:49] LABS: ABG BASE EXCESS 1.5 (-2.0-2.0); ABG HCO3 25.2 MEQ/L (22.0-26.0); ABG O2 SATURATION 97.4 % (95.0-99.0); ABG PARTIAL PRESSURE O2 94.1 mmHg (75.0-100.0); ABG STANDARD HCO3 25.8 MEQ/L (22.0-26.0); ABG TOTAL CO2 26.3 MEQ/L (23.0-31.0); ABG pH (ARTERIAL) 7.451 UNITS (7.350-7.450)
[2018-09-24 20:30] VITALS: BP 126/78
== END 2018-09-24 20:53 | disposition home or self-care (01) ==
LOC: M ED 12:21
DX: I26.99 Other pulmonary embolism without acute cor pulmonale (principal); I45.19 Other right bundle-branch block; I48.91 Unspecified atrial fibrillation; E66.8 Other obesity; F33.9 Major depressive disorder, recurrent, unspecified; G89.29 Other chronic pain; M54.9 Dorsalgia, unspecified; Z88.0 Allergy status to penicillin; Z88.1 Allergy status to other antibiotic agents; Z88.2 Allergy status to sulfonamides; Z88.5 Allergy status to narcotic agent; Z88.8 Allergy status to other drugs, medicaments and biological substances; Z91.048 Other nonmedicinal substance allergy status
CPT/HCPCS: 36600; 71045; 71275; 80048; 82550; 82553; 82803; 84484; 85027; 85610; 85730; 93005; 96374; 99285; 99496; J2060; Q9967

== ENCOUNTER → 2018-10-12 | Outpatient (REF) | payer MEDICARE, MEDICAID ==
[2018-10-12 12:07] LABS: CHOLESTEROL RISK RATIO 3.274 (<5)
[2018-10-12 14:04] LABS: APPEARANCE, URINE HAZY (CLEAR); BACTERIA, URINE AUTO 1+ (NEGATIVE); BILIRUBIN, URINE AUTO NEGATIVE (NEGATIVE); BLOOD, URINE BLOOD 1+ (NEGATIVE); COLOR, URINE YELLOW (YELLOW); GLUCOSE, URINE (UA) AUTO NEGATIVE (NEGATIVE); KETONE, URINE AUTO NEGATIVE (NEGATIVE); LEUKOCYTE ESTERASE, URINE AUTO TRACE (NEGATIVE); MUCUS, URINE SMALL (NEGATIVE); NITRITE, URINE AUTO NEGATIVE (NEGATIVE); PROTEIN, URINE AUTO NEGATIVE (NEGATIVE); RBC, URINE AUTO 3 /HPF (0-3); SPECIFIC GRAVITY URINE AUTO 1.015 (1.002-1.035); SQUAMOUS EPITHELIAL CELL UR AU 10 /HPF (0-6); UROBILINOGEN, URINE AUTO 0.2 mg/dL (0.0-2.0); WBC, URINE AUTO 5 /HPF (0-3)
== END ==
LOC: M SFHCPLAZ 10:08
PROVIDERS: ATTEND Nurse Practitioner Family
DX: Z13.220 Encounter for screening for lipoid disorders (principal); N20.0 Calculus of kidney; I10 Essential (primary) hypertension
CPT/HCPCS: 36415; 80061; 81001; 87086; G0463

== ENCOUNTER 2018-12-10 09:19 | Emergency (ER) | payer MEDICARE, MEDICAID ==
[~2018-12-10] VITALS: Ht 162.6 cm; Wt 193.2 kg
[~2018-12-10 09:19] MED LIST changes: +CYAN500T8 PO; -DULO1CAP2 PO; -DULO1CAP3 PO; +DULO1CAP5 PO; +DULO1CAP6 PO; +LINE1TAB6 PO; -LINE600T11 PO; -VITA500T3 PO; +ZANT150T40 PO; -ZANTTAB PO; +ZETI10TA16 PO; -ZETI10TA30 PO
[2018-12-10 11:50] LABS: BASO % 0.4 % (0.0-1.0); EOS # 0.1 10^3/uL (0.0-0.50); EOS % 1.5 % (0.0-3.0); HEMATOCRIT 46.2 % (36.0-47.0); HEMOGLOBIN 14.7 g/dl (12.0-15.5); LYMPH # 1.4 10^3/uL (1.5-4.5); LYMPH % 29.9 % (24.0-44.0); MEAN CORPUSCULAR HEMOGLOBIN 29.5 pg (27.0-33.0); MEAN CORPUSCULAR HGB CONC 31.8 g/dl (32.0-36.5); MEAN CORPUSCULAR VOLUME 92.8 fl (80.0-96.0); MONO # 0.4 10^3/uL (0.0-0.8); MONO % 8.9 % (0.0-5.0); NEUTROPHILS # 2.8 10^3/uL (1.8-7.7); NEUTROPHILS % 58.9 % (36.0-66.0); PLATELET COUNT, AUTOMATED 171 10^3/uL (150-450); RED BLOOD COUNT 4.98 10^6/uL (4.00-5.40); WHITE BLOOD COUNT 4.7 10^3/uL (4.0-10.0)
[2018-12-10] MEDS ORDERED: diphenhydrAMINE INJ 50MG/ML VIAL (J1200) IV STA (11:50)
[2018-12-10] MEDS ORDERED: PROMETHAZINE INJ 25 MG/ML VIAL (J2550) IV ONE (12:00)
[2018-12-10] MEDS ORDERED: NS 500 ML IV ONE (12:00)
[2018-12-10] MEDS ORDERED: MORPHINE 2 MG/ML 1ML SYRINGE (J2270) IV ONE (12:00)
--- NOTE | 2018-12-10 12:29 | REP ---
CT of the abdomen and pelvis without IV and oral contrast: Comparison is 09/10/2018. There is a left renal 4.8 mm nonobstructive lower pole calculus, similar to the prior study. There is a 5.3 ml right renal lower pole nonobstructive calculus. There is a 5.59 mm right renal lower pole nonobstructive calculus. There are no ureteral calculi. There is no hydronephrosis. There is no pararenal stranding. There is a left renal 1.8 centimeter lower pole cyst. This is unchanged. The visualized lung manley are unremarkable. The unenhanced hepatic parenchyma, gallbladder, pancreas, spleen, adrenals, abdominal aorta, bowel and mesentery are unremarkable. Pelvis: There is a hysterectomy. Vaginal cuff, adnexa and bladder are unremarkable. The pelvic bowel loops are unremarkable. There is anterior abdominal wall pannus. On the anterior wall of the pannus. There appear to be mesh retainer clips. There is a small ventral hernia containing omental fat but no bowel. Impression: There are nonobstructive renal calculi bilaterally. There are no ureteral calculi. There is no hydronephrosis or perinephric stranding. There is a left renal cortical simple cyst. Anterior abdominal wall mesh. A small fat-containing anterior abdominal wall hernia. Hysterectomy. Electronically Signed by Alex Jones MD 12/10/2018 12:20 P
[2018-12-10 13:03] LABS: CALCIUM LEVEL 9.9 MG/DL (8.8-10.2); CREATININE FOR GFR 1.17 MG/DL (0.55-1.30); GLOMERULAR FILTRATION RATE 49.7 (>45); POTASSIUM SERUM 4.1 MEQ/L (3.5-5.1)
[2018-12-10 13:56] VITALS: BP 128/94
[2018-12-10] MEDS ORDERED: PERC5TAB12 PO (14:03)
[2018-12-10] MEDS ORDERED: MACR100C43 PO (14:03)
[2018-12-10] MEDS ORDERED: PERCOCET 5MG/325MG TAB PO ONE (14:15)
[2018-12-10] MEDS ORDERED: NITROFURANTOIN (MACROBID) 100 MG CAP PO ONE (14:15)
[2018-12-11] MEDS ORDERED: FLOM0.4C39 PO (22:45)
== END 2018-12-10 14:20 | disposition home or self-care (01) ==
LOC: M ED 09:19
DX: N39.0 Urinary tract infection, site not specified (principal); I10 Essential (primary) hypertension; E11.9 Type 2 diabetes mellitus without complications; Z86.711 Personal history of pulmonary embolism; Z87.442 Personal history of urinary calculi; Z79.899 Other long term (current) drug therapy; Z79.82 Long term (current) use of aspirin; Z79.01 Long term (current) use of anticoagulants; Z88.0 Allergy status to penicillin; Z88.1 Allergy status to other antibiotic agents; Z88.2 Allergy status to sulfonamides; Z88.5 Allergy status to narcotic agent; Z88.8 Allergy status to other drugs, medicaments and biological substances; Z91.048 Other nonmedicinal substance allergy status
CPT/HCPCS: 74176; 80047; 80048; 81001; 85025; 87086; 96361; 96374; 96375; 99284; J1200; J2270

== ENCOUNTER 2018-12-11 15:18 | Emergency (ER) | payer MEDICARE, MEDICAID ==
[~2018-12-11] VITALS: Ht 162.6 cm; Wt 193.2 kg
[2018-12-11 16:42] LABS: BASO % 0.6 % (0.0-1.0); EOS # 0.1 10^3/uL (0.0-0.50); EOS % 1.7 % (0.0-3.0); HEMATOCRIT 46.4 % (36.0-47.0); HEMOGLOBIN 14.4 g/dl (12.0-15.5); LYMPH # 1.5 10^3/uL (1.5-4.5); LYMPH % 28.6 % (24.0-44.0); MEAN CORPUSCULAR HEMOGLOBIN 29.1 pg (27.0-33.0); MEAN CORPUSCULAR VOLUME 93.7 fl (80.0-96.0); MONO # 0.6 10^3/uL (0.0-0.8); MONO % 10.5 % (0.0-5.0); NEUTROPHILS # 3.1 10^3/uL (1.8-7.7); PLATELET COUNT, AUTOMATED 168 10^3/uL (150-450); RED BLOOD COUNT 4.95 10^6/uL (4.00-5.40); WHITE BLOOD COUNT 5.4 10^3/uL (4.0-10.0)
[2018-12-11 17:08] LABS: ALBUMIN 3.5 GM/DL (3.2-5.2); ALT/SGPT 25 U/L (12-78); BILIRUBIN,DIRECT < 0.1 MG/DL (0.0-0.2); BILIRUBIN,TOTAL 0.2 MG/DL (0.2-1.0); BLOOD UREA NITROGEN 15 MG/DL (7-18); CALCIUM LEVEL 9.5 MG/DL (8.8-10.2); CARBON DIOXIDE LEVEL 29 MEQ/L (21-32); CHLORIDE LEVEL 104 MEQ/L (98-107); GLOMERULAR FILTRATION RATE 53.4 (>45); GLUCOSE, FASTING 76 MG/DL (70-100); LIPASE 92 U/L (73-393); POTASSIUM SERUM 4.4 MEQ/L (3.5-5.1); SODIUM LEVEL 140 MEQ/L (136-145); TOTAL PROTEIN 6.8 GM/DL (6.4-8.2)
[2018-12-11] MEDS ORDERED: PERCOCET 5MG/325MG TAB PO ONE (18:00)
[2018-12-11] MEDS ORDERED: ONDANSETRON 4MG/2ML VIAL (J2405) IV ONE (18:00)
[2018-12-11] MEDS ORDERED: ONDANSETRON 4 MG ORAL DISINTEGRATING TAB (Q0162 PER 1MG) PO ONE (18:15)
[2018-12-11] MEDS ORDERED: diphenhydrAMINE INJ 50MG/ML VIAL (J1200) IV STA (18:37)
[2018-12-11] MEDS ORDERED: ISOVUE-370 76% 100ML VIAL (Q9967) As Ordered ONE (18:44)
[2018-12-11] MEDS ORDERED: MORPHINE 2 MG/ML 1ML SYRINGE (J2270) IV ONE ×2 (18:45→21:45)
[2018-12-11] MEDS ORDERED: PROMETHAZINE INJ 25 MG/ML VIAL (J2550) IV ONE (18:45)
[2018-12-11] MEDS ORDERED: NS 500 ML IV ONE (18:45)
--- NOTE | 2018-12-11 21:28 | REPVR ---
EXAM: CT Angiography Chest With Contrast EXAM DATE/TIME: 12/11/18 (7:37pm) CLINICAL HISTORY: 63 year old female with chest pain upon inspiration. Elevated D-dimer. Possible pulmonary embolism. TECHNIQUE: Imaging protocol: Axial computed tomographic angiography images of the chest with intravenous contrast using CT angiography protocol. Coronal and sagittal reformatted images were created and reviewed. 3D rendering: MIP reconstructed images were created and reviewed. Radiation optimization: All CT scans at this facility use at least one of these dose optimization techniques: automated exposure control; mA and/or kV adjustment per patient size (includes targeted exams where dose is matched to clinical indication); or iterative reconstruction. Contrast material: Isovue 370 Contrast volume: 75 ml Contrast route: IV COMPARISON: CTA CHEST of 09/24/18 FINDINGS: Pulmonary arteries: Normal. No pulmonary emboli. Aorta: Unremarkable. No aortic aneurysm. No aortic dissection. S/P aortic valve repair. Lungs: No masses. Minimal hypoventilatory changes. No consolidation. Pleural space: Unremarkable. No pneumothorax. No pleural effusions. Heart: Cardiomegaly (stable). No pericardial effusion. S/P aortic valve repair. Lymph nodes: Unremarkable. No enlarged lymph nodes. Bones/joints: No acute fracture. Previous sternotomy. Degenerative thoracic spine changes. Soft tissues: Unremarkable. Upper abdomen: Splenomegaly (unchanged). Surgical clips at or close to the EG junction region. IMPRESSION: No acute findings. No filling defects suspicious for pulmonary emboli are seen. There is no CT evidence of aortic dissection nor leakage. No aortic aneurysm is appreciated. Electronically signed by: Lora Rivera On 12/11/2018 21:27:46 PM
[2018-12-11] MEDS ORDERED: TAMSULOSIN 0.4 MG CAP PO ONE (21:45)
[2018-12-11] MEDS ORDERED: FLOM0.4C39 PO (22:45)
[2018-12-11 22:50] VITALS: BP 136/64
== END 2018-12-11 23:09 | disposition home or self-care (01) ==
LOC: M ED 15:18
DX: N39.0 Urinary tract infection, site not specified (principal); I10 Essential (primary) hypertension; Z87.440 Personal history of urinary (tract) infections; Z87.442 Personal history of urinary calculi; G43.909 Migraine, unspecified, not intractable, without status migrainosus; G62.9 Polyneuropathy, unspecified; M54.30 Sciatica, unspecified side; Z86.79 Personal history of other diseases of the circulatory system; Z95.2 Presence of prosthetic heart valve; Z88.0 Allergy status to penicillin; Z88.2 Allergy status to sulfonamides; Z88.1 Allergy status to other antibiotic agents; Z88.5 Allergy status to narcotic agent; Z91.048 Other nonmedicinal substance allergy status; Z79.899 Other long term (current) drug therapy; Z79.01 Long term (current) use of anticoagulants; Z79.82 Long term (current) use of aspirin
CPT/HCPCS: 71275; 80048; 80076; 81001; 83690; 85025; 85379; 87086; 96361; 96374; 96375; 96376; 99284; J1200; J2270; Q0162; Q9967

== ENCOUNTER → 2018-12-12 | Outpatient (REF) | payer MEDICARE, MEDICAID | LOC: M SMT 12:49 | PROVIDERS: ATTEND Nurse Practitioner Family | DX: R31.29 Other microscopic hematuria (principal) | CPT/HCPCS: 88108; G0463 ==

== ENCOUNTER → 2018-12-14 | Outpatient (REF) | payer MEDICARE, MEDICAID ==
[2018-12-14 16:23] LABS: BASO % 0.3 % (0.0-1.0); EOS # 0.1 10^3/uL (0.0-0.50); EOS % 1.2 % (0.0-3.0); HEMATOCRIT 47.7 % (36.0-47.0); HEMOGLOBIN 14.7 g/dl (12.0-15.5); LYMPH # 1.3 10^3/uL (1.5-4.5); LYMPH % 21.3 % (24.0-44.0); MEAN CORPUSCULAR HEMOGLOBIN 29.3 pg (27.0-33.0); MEAN CORPUSCULAR HGB CONC 30.8 g/dl (32.0-36.5); MONO # 0.5 10^3/uL (0.0-0.8); MONO % 7.8 % (0.0-5.0); NEUTROPHILS # 4.1 10^3/uL (1.8-7.7); NEUTROPHILS % 69.1 % (36.0-66.0); PLATELET COUNT, AUTOMATED 188 10^3/uL (150-450); RED BLOOD COUNT 5.02 10^6/uL (4.00-5.40); WHITE BLOOD COUNT 5.9 10^3/uL (4.0-10.0)
[2018-12-14 16:52] LABS: ERYTHROCYTE SEDIMENTATION RATE 10 mm/hr (0-30)
== END ==
LOC: M SFHCPLAZ 14:04
PROVIDERS: ATTEND Family Medicine
DX: Z86.79 Personal history of other diseases of the circulatory system (principal)
CPT/HCPCS: 36415; 85025; 85652; 86140; 87040; G0463

== ENCOUNTER 2019-04-16 15:03 | Emergency (ER) | payer MEDICARE, MEDICAID ==
[~2019-04-16] VITALS: Ht 162.6 cm; Wt 178.3 kg
[2019-04-16] MEDS ORDERED: LIDOCAINE 5% OINT 30 GM TOP STA (17:54)
--- NOTE | 2019-04-16 18:53 | REPVR ---
PROCEDURE INFORMATION: Exam: CT Lumbar Spine Without Contrast Exam date and time: 04/16/2019 5:54 PM Age: 63 years old Clinical history: Pain; Other: Point tender; Additional info: PT tender, no payal, HX abscess, no fever, no fatigue TECHNIQUE: Imaging protocol: Computed tomography images of the lumbar spine without contrast. Radiation optimization: All CT scans at this facility use at least one of these dose optimization techniques: automated exposure control; mA and/or kV adjustment per patient size (includes targeted exams where dose is matched to clinical indication); or iterative reconstruction. COMPARISON: MRI-Spine, L.S. without con 06/16/2017 8:26 PM FINDINGS: Vertebrae: Moderate bilateral L5-S1 posterior facet joint arthropathy. Advanced bilateral L4-L5, L3-L4, and L2-L3 posterior facet joint arthropathy. Transitional lumbosacral anatomy on the left. 7 mm of anterolisthesis of L3 on L4. Multilevel mild degenerative endplate changes, with bridging ventral osteophytes. No acute fracture. Discs/Spinal canal/Neural foramina: Mild left neural foraminal narrowing at T11-T12. Small dorsal osteophytes at T12-L1. Mild spinal canal stenosis. Prominent dorsal disc osteophyte complex at L1-L2. Moderate to severe spinal canal stenosis, severe left neural foraminal narrowing, and mild right neural foraminal narrowing.Small dorsal disc osteophyte complex at L2-L3. Moderate spinal canal stenosis and mild bilateral neural foraminal narrowing. Prominent dorsal disc osteophyte complex at L3-L4. Severe spinal canal stenosis and mild bilateral neural foraminal narrowing. Small symmetric disc bulge at L4-L5. Moderate spinal canal stenosis and mild to moderate bilateral neural foraminal narrowing. Moderate right and mild left neural foraminal narrowing at L5-S1. Mild disc space at L3-L4 and L5-S1. Sacrum/coccyx: Bilateral sacroiliac joint DJD. Kidneys and ureters: 3 mm nonobstructing right renal calyceal calculus. Soft tissues: Unremarkable. IMPRESSION: 1. Multilevel degenerative endplate changes, disc space narrowing, and posterior facet joint arthropathy. 2. Anterolisthesis of L3 on L4. 3. Multilevel spinal canal stenosis and neural foraminal narrowing. Electronically signed by: Kika Roberson On 04/16/2019 18:53:21 PM
[2019-04-16 19:08] LABS: BASO % 0.2 % (0.0-1.0); EOS # 0.1 10^3/uL (0.0-0.5); EOS % 1.8 % (0.0-3.0); HEMATOCRIT 45.1 % (36.0-47.0); LYMPH # 1.4 10^3/uL (1.5-5.0); LYMPH % 24.8 % (24.0-44.0); MEAN CORPUSCULAR HEMOGLOBIN 29.2 pg (27.0-33.0); MONO # 0.6 10^3/uL (0.0-0.8); MONO % 9.9 % (0.0-5.0); NEUTROPHILS # 3.5 10^3/uL (1.5-8.5); NEUTROPHILS % 62.9 % (36.0-66.0); PLATELET COUNT, AUTOMATED 165 10^3/uL (150-450); WHITE BLOOD COUNT 5.5 10^3/uL (4.0-10.0)
[2019-04-16 19:28] LABS: ERYTHROCYTE SEDIMENTATION RATE 12 mm/hr (0-30)
[2019-04-16 19:30] VITALS: BP 149/66
[2019-04-16] MEDS ORDERED: ROBA750T4 PO (19:50)
[2019-04-16] MEDS ORDERED: METHOCARBAMOL 750 MG TAB PO ONE (20:00)
== END 2019-04-16 20:20 | disposition home or self-care (01) ==
LOC: M ED 15:03
DX: M54.5 Low back pain (principal); E11.40 Type 2 diabetes mellitus with diabetic neuropathy, unspecified; I10 Essential (primary) hypertension; Z87.442 Personal history of urinary calculi; Z86.711 Personal history of pulmonary embolism; E66.01 Morbid (severe) obesity due to excess calories; M43.16 Spondylolisthesis, lumbar region; M48.061 Spinal stenosis, lumbar region without neurogenic claudication; M99.53 Intervertebral disc stenosis of neural canal of lumbar region; Z79.82 Long term (current) use of aspirin; Z79.899 Other long term (current) drug therapy; Z79.01 Long term (current) use of anticoagulants; Z88.0 Allergy status to penicillin; Z88.2 Allergy status to sulfonamides; Z88.1 Allergy status to other antibiotic agents; Z88.5 Allergy status to narcotic agent; Z88.8 Allergy status to other drugs, medicaments and biological substances

== ENCOUNTER → 2019-04-30 | Outpatient (REF) | payer MEDICARE, MEDICAID ==
[~2019-04-30] MED LIST changes: +ROBA750T4 PO
[2019-04-30 11:48] LABS: BASO % 0.6 % (0.0-1.0); EOS # 0.1 10^3/uL (0.0-0.5); EOS % 2.5 % (0.0-3.0); HEMATOCRIT 46.9 % (36.0-47.0); HEMOGLOBIN 14.3 g/dl (12.0-15.5); LYMPH # 1.3 10^3/uL (1.5-5.0); LYMPH % 24.9 % (24.0-44.0); MEAN CORPUSCULAR HEMOGLOBIN 29.1 pg (27.0-33.0); MEAN CORPUSCULAR HGB CONC 30.5 g/dl (32.0-36.5); MEAN CORPUSCULAR VOLUME 95.3 fl (80.0-96.0); MONO # 0.6 10^3/uL (0.0-0.8); MONO % 12.2 % (0.0-5.0); NEUTROPHILS # 3.1 10^3/uL (1.5-8.5); NEUTROPHILS % 59.2 % (36.0-66.0); PLATELET COUNT, AUTOMATED 202 10^3/uL (150-450); RED BLOOD COUNT 4.92 10^6/uL (4.00-5.40); WHITE BLOOD COUNT 5.3 10^3/uL (4.0-10.0)
[2019-04-30 12:09] LABS: ALBUMIN 3.7 GM/DL (3.2-5.2); BILIRUBIN,TOTAL 0.6 MG/DL (0.2-1.0); C REACTIVE PROTEIN QUANTITATIV 0.68 MG/DL (0.00-0.30); CALCIUM LEVEL 9.4 MG/DL (8.8-10.2); CREATININE FOR GFR 1.11 MG/DL (0.55-1.30); GLOMERULAR FILTRATION RATE 52.8 (>45); POTASSIUM SERUM 4.2 MEQ/L (3.5-5.1); TOTAL PROTEIN 7.1 GM/DL (6.4-8.2)
[2019-04-30 12:12] LABS: ERYTHROCYTE SEDIMENTATION RATE 15 mm/hr (0-30)
== END ==
LOC: M SFHCPLAZ 09:05
PROVIDERS: ATTEND Family Medicine
DX: R61 Generalized hyperhidrosis (principal)
CPT/HCPCS: 36415; 80053; 85025; 85652; 86140; 87040; G0463

== ENCOUNTER → 2019-05-14 | Outpatient (REF) | payer MEDICARE, MEDICAID ==
[~2019-05-14] MED LIST changes: -BUPR300T34 PO; +BUPR300T92 PO
[2019-05-14 11:50] LABS: BASO % 0.4 % (0.0-1.0); EOS # 0.2 10^3/uL (0.0-0.5); EOS % 3.2 % (0.0-3.0); HEMATOCRIT 46.6 % (36.0-47.0); HEMOGLOBIN 14.1 g/dl (12.0-15.5); LYMPH # 1.3 10^3/uL (1.5-5.0); LYMPH % 17.2 % (24.0-44.0); MEAN CORPUSCULAR HGB CONC 30.3 g/dl (32.0-36.5); MEAN CORPUSCULAR VOLUME 95.9 fl (80.0-96.0); MONO # 0.7 10^3/uL (0.0-0.8); MONO % 9.9 % (0.0-5.0); NEUTROPHILS # 5.1 10^3/uL (1.5-8.5); NEUTROPHILS % 68.9 % (36.0-66.0); PLATELET COUNT, AUTOMATED 188 10^3/uL (150-450); RED BLOOD COUNT 4.86 10^6/uL (4.00-5.40); WHITE BLOOD COUNT 7.4 10^3/uL (4.0-10.0)
[2019-05-14 11:51] LABS: HEMATOCRIT 46.6 % (36.0-47.0)
[2019-05-14 12:25] LABS: ALBUMIN 3.5 GM/DL (3.2-5.2); ALT/SGPT 27 U/L (12-78); BILIRUBIN,TOTAL 0.5 MG/DL (0.2-1.0); BLOOD UREA NITROGEN 14 MG/DL (7-18); CALCIUM LEVEL 9.2 MG/DL (8.8-10.2); CARBON DIOXIDE LEVEL 31 MEQ/L (21-32); CHLORIDE LEVEL 105 MEQ/L (98-107); CREATININE FOR GFR 0.94 MG/DL (0.55-1.30); FERRITIN 41 NG/ML (8-252); FREE T4 1.09 NG/DL (0.76-1.46); GLOMERULAR FILTRATION RATE > 60.0 (>45); GLUCOSE, FASTING 104 MG/DL (70-100); IRON (FE) 63 UG/DL (50-170); MAGNESIUM LEVEL 2.4 MG/DL (1.8-2.4); PERCENT SATURATION 19.2 % (13.2-45.0); PHOSPHORUS LEVEL 2.8 MG/DL (2.5-4.9); POTASSIUM SERUM 4.6 MEQ/L (3.5-5.1); SODIUM LEVEL 141 MEQ/L (136-145); THYROID STIMULATING HORMONE 0.842 uIU/ML (0.358-3.740); TOTAL IRON BINDING CAPACITY 328 UG/DL (250-450); TOTAL PROTEIN 7.1 GM/DL (6.4-8.2)
[2019-05-14 12:27] LABS: TOTAL 25(OH) VITAMIN D 31.4 NG/ML (30.0-100.0); VITAMIN B12 LEVEL 958 PG/ML (247-911)
== END ==
LOC: M SFHCPLAZ 09:39
PROVIDERS: ATTEND Family Medicine
DX: Z98.84 Bariatric surgery status (principal); E55.9 Vitamin D deficiency, unspecified; Z79.899 Other long term (current) drug therapy
CPT/HCPCS: 36415; 80053; 82306; 82607; 82728; 82747; 83036; 83550; 83735; 84100; 84439; 84443; 85025; G0463

== ENCOUNTER → 2019-05-17 | Outpatient (CLI) | payer MEDICARE, MEDICAID ==
--- NOTE | 2019-05-17 16:53 | REP ---
Clinical: Dyspnea on exertion . Comparison: 09/24/2018 . Technique: PA and lateral. Findings: Evidence of prior sternotomy and aortic valve repair. The lung manley are clear and without acute consolidation, effusion, or pneumothorax. The skeletal structures are intact and normal. Impression: 1. No acute cardiopulmonary process. Electronically Signed by Isidro Tate MD 05/17/2019 04:44 P
== END ==
LOC: M LRY 16:24
PROVIDERS: ATTEND Physician Assistant
DX: R06.09 Other forms of dyspnea (principal)
CPT/HCPCS: 71046; 87804; 94640; G0463

== ENCOUNTER → 2019-05-30 | Outpatient (CLI) | payer MEDICARE, MEDICAID ==
--- NOTE | 2019-05-31 01:40 | REPPI ---
Clinical: Right hip pain. Technique: Neutral and frog lateral views of the right hip. Findings: Generalized age-related changes are appreciated including subtle increase sclerosis to the acetabular roof with very minimal joint space narrowing. No further overt arthritic changes are appreciated. No acute fracture dislocation. Surrounding soft tissues are unremarkable. Impression: Generalized age-related changes. Electronically Signed by Isidro Tate MD 05/31/2019 01:32 A
== END ==
LOC: M PLAIMG 12:39 → M PLALAB 12:39
PROVIDERS: ATTEND Family Medicine
DX: M25.551 Pain in right hip (principal); M16.11 Unilateral primary osteoarthritis, right hip

== ENCOUNTER → 2019-07-16 | Outpatient (REF) | payer MEDICARE, MEDICAID ==
[~2019-07-16] MED LIST changes: +PYRI1TAB5 PO
[2019-07-16 14:12] LABS: APPEARANCE, URINE MANUAL CLOUDY (CLEAR); COLOR, URINE MANUAL ORANGE (YELLOW)
[2019-07-16 14:13] LABS: BILIRUBIN, URINE MANUAL OBSCURED (NEGATIVE); GLUCOSE, URINE (UA) MANUAL NEGATIVE (NEGATIVE); KETONE, URINE MANUAL OBSCURED mg/dL (NEGATIVE); NITRITE, URINE MANUAL OBSCURED (NEGATIVE); PROTEIN, URINE MANUAL OBSCURED mg/dL (NEGATIVE); UROBILINOGEN, URINE MANUAL OBSCURED mg/dl (NORMAL)
[2019-07-16 14:14] LABS: BLOOD URINE MANUAL POSITIVE (NEGATIVE); LEUKOCYTE ESTERASE, URINE MAN POSITIVE (NEGATIVE)
[2019-07-16 14:20] LABS: BACTERIA, URINE MOD AMOUNT; HYALINE CAST, URINE NONE SEEN /lpf (0-1); RBC, URINE TNTC /hpf (0-3); SQUAMOUS EPITHELIAL CELL URINE LARGE AMOUNT /hpf (SMALL AMT); WBC, URINE TNTC /hpf (0-3)
[2019-07-16 14:21] LABS: CALCIUM OXALATE CRYSTALS,URINE LARGE AMOUNT /hpf; MUCUS, URINE SMALL AMOUNT (NEGATIVE)
== END ==
LOC: M SFHCPLAZ 12:49
PROVIDERS: ATTEND Family Medicine
DX: R31.29 Other microscopic hematuria (principal)
CPT/HCPCS: 81000; G0463

== ENCOUNTER 2019-07-17 09:52 | Emergency (ER) | payer MEDICARE, MEDICAID ==
[~2019-07-17] VITALS: Ht 162.6 cm; Wt 176.9 kg
[~2019-07-17 09:52] MED LIST changes: -PYRI1TAB5 PO
[2019-07-17] MEDS ORDERED: PERCOCET 5MG/325MG TAB PO ONE (11:30)
[2019-07-17] MEDS ORDERED: PERC5TAB12 PO (12:01)
[2019-07-17 12:29] VITALS: BP 123/60
== END 2019-07-17 12:30 | disposition home or self-care (01) ==
LOC: M ED 09:52
DX: M54.16 Radiculopathy, lumbar region (principal); G89.29 Other chronic pain; Z96.611 Presence of right artificial shoulder joint; Z95.2 Presence of prosthetic heart valve; Z96.653 Presence of artificial knee joint, bilateral; G43.909 Migraine, unspecified, not intractable, without status migrainosus; G62.9 Polyneuropathy, unspecified; I10 Essential (primary) hypertension; Z87.01 Personal history of pneumonia (recurrent); Z86.711 Personal history of pulmonary embolism; G47.30 Sleep apnea, unspecified; Z98.84 Bariatric surgery status; Z87.2 Personal history of diseases of the skin and subcutaneous tissue; Z87.442 Personal history of urinary calculi; Z87.440 Personal history of urinary (tract) infections; Z96.0 Presence of urogenital implants; Z86.32 Personal history of gestational diabetes; M54.30 Sciatica, unspecified side; Z86.2 Personal history of diseases of the blood and blood-forming organs and certain disorders involving the immune mechanism; F43.10 Post-traumatic stress disorder, unspecified; F32.9 Major depressive disorder, single episode, unspecified; Z86.14 Personal history of Methicillin resistant Staphylococcus aureus infection; Z62.811 Personal history of psychological abuse in childhood; Z62.810 Personal history of physical and sexual abuse in childhood; Z79.82 Long term (current) use of aspirin; Z79.01 Long term (current) use of anticoagulants; Z79.899 Other long term (current) drug therapy; Z88.0 Allergy status to penicillin; Z88.2 Allergy status to sulfonamides; Z88.1 Allergy status to other antibiotic agents; Z88.8 Allergy status to other drugs, medicaments and biological substances; Z88.5 Allergy status to narcotic agent; Z91.89 Other specified personal risk factors, not elsewhere classified

== ENCOUNTER → 2019-10-04 | Outpatient (CLI) | payer MEDICARE, MEDICAID ==
[~2019-10-04] MED LIST changes: +CYCL-707 PO; -CYCL10TA PO; +PYRI1TAB5 PO
--- NOTE | 2019-10-04 13:03 | REPMRS ---
Patient History The patient states she has not had a clinical breast exam in over a year. Family history of unknown cancer at age 24 in father, ovarian cancer at age 52 in maternal aunt. Benign radio exam breast specimen of the right breast, January 23, 2018. Benign stereotatic loc for ea lesion of the right breast, January 23, 2018. 2 benign excisional biopsies of the left breast, 2007. Took hormonal contraceptives for 2 years. Digital Woman Screen Mammo: October 04, 2019 - Exam #: [id number] Bilateral CC and MLO view(s) were taken. Technologist: Es Liao, Technologist Prior study comparison: December 28, 2017, right breast digital mammo diagnostic unilateral, performed at [facility]. December 22, 2017, bilateral digital woman screen mammo performed at [facility]. August 20, 2015, bilateral digital mammo screening bilat, performed at [facility]. September 03, 2014, bilateral digital mammo screening bilat, performed at [facility]. FINDINGS: The breast tissue is almost entirely fat. The Volpara volumetric breast density category is: A. There has been no change in the appearance of the mammogram from the prior studies. There is no interval development of dominant mass, architectural distortion, or grouped microcalcification typical of malignancy. 3-D tomosynthesis shows no additional findings. Assessment: BI-RADS/ACR category 1 mammogram. Negative Mammogram. Recommendation Routine screening mammogram of both breasts in 1 year (for women over age 40). This patient's Lifetime Breast Cancer RIsk is estimated at 7.0 %. This mammogram was interpreted with the aid of an FDA-approved computer-aided dectection system. Electronically Signed By: Brent Dixon MD 10/04/19 [id number]
== END ==
LOC: M WHC 10:21
PROVIDERS: ATTEND Family Medicine
DX: Z12.31 Encounter for screening mammogram for malignant neoplasm of breast (principal); Z80.8 Family history of malignant neoplasm of other organs or systems; Z86.018 Personal history of other benign neoplasm; Z92.0 Personal history of contraception; F43.10 Post-traumatic stress disorder, unspecified; F41.1 Generalized anxiety disorder; F33.1 Major depressive disorder, recurrent, moderate

== ENCOUNTER 2019-10-30 07:10 | Emergency (ER) | payer MEDICARE, MEDICAID ==
[~2019-10-30] VITALS: Ht 162.6 cm; Wt 178.2 kg
[~2019-10-30 07:10] MED LIST changes: -TAB-TAB PO; +TAB-TAB2 PO
[2019-10-30] MEDS ORDERED: PREG100C PO (07:23)
[2019-10-30] MEDS ORDERED: PERCOCET 5MG/325MG TAB PO ONE ×2 (08:15→15:15)
[2019-10-30] MEDS ORDERED: methocarbamoL 750 MG TAB PO ONE (08:15)
[2019-10-30 08:39] LABS: BASO % 0.3 % (0.0-1.0); EOS # 0.1 10^3/uL (0.0-0.5); EOS % 1.2 % (0.0-3.0); HEMATOCRIT 45.1 % (36.0-47.0); HEMOGLOBIN 14.1 g/dl (12.0-15.5); LYMPH # 1.7 10^3/uL (1.5-5.0); MEAN CORPUSCULAR HEMOGLOBIN 29.5 pg (27.0-33.0); MEAN CORPUSCULAR HGB CONC 31.3 g/dl (32.0-36.5); MEAN CORPUSCULAR VOLUME 94.4 fl (80.0-96.0); MONO # 0.7 10^3/uL (0.0-0.8); MONO % 10.1 % (0.0-5.0); NEUTROPHILS # 4.1 10^3/uL (1.5-8.5); NEUTROPHILS % 62.1 % (36.0-66.0); PLATELET COUNT, AUTOMATED 177 10^3/uL (150-450); RED BLOOD COUNT 4.78 10^6/uL (4.00-5.40); WHITE BLOOD COUNT 6.6 10^3/uL (4.0-10.0)
[2019-10-30 08:43] LABS: APPEARANCE, URINE CLOUDY (CLEAR); BACTERIA, URINE AUTO 2+ (NEGATIVE); BILIRUBIN, URINE AUTO NEGATIVE (NEGATIVE); BLOOD, URINE BLOOD NEGATIVE (NEGATIVE); CALCIUM OXALATE CRYSTALS SMALL; COLOR, URINE YELLOW (YELLOW); GLUCOSE, URINE (UA) AUTO NEGATIVE (NEGATIVE); GRANULAR CAST, URINE AUTO 1 /LPF; KETONE, URINE AUTO NEGATIVE (NEGATIVE); LEUKOCYTE ESTERASE, URINE AUTO 1+ (NEGATIVE); MUCUS, URINE SMALL (NEGATIVE); NITRITE, URINE AUTO NEGATIVE (NEGATIVE); PROTEIN, URINE AUTO NEGATIVE (NEGATIVE); RBC, URINE AUTO 12 /HPF (0-3); SPECIFIC GRAVITY URINE AUTO 1.015 (1.002-1.035); SQUAMOUS EPITHELIAL CELL UR AU 8 /HPF (0-6); UROBILINOGEN, URINE AUTO 0.2 mg/dL (0.0-2.0); WBC, URINE AUTO 24 /HPF (0-3)
[2019-10-30 09:01] LABS: BLOOD UREA NITROGEN 17 MG/DL (7-18); CALCIUM LEVEL 9.1 MG/DL (8.8-10.2); CARBON DIOXIDE LEVEL 31 MEQ/L (21-32); CHLORIDE LEVEL 104 MEQ/L (98-107); CREATININE FOR GFR 0.99 MG/DL (0.55-1.30); GLOMERULAR FILTRATION RATE > 60.0 (>45); GLUCOSE, FASTING 109 MG/DL (70-100); POTASSIUM SERUM 4.3 MEQ/L (3.5-5.1); SODIUM LEVEL 138 MEQ/L (136-145)
[2019-10-30] MEDS ORDERED: methylPREDNISolone 125MG 2ML VIAL IV ONE (10:00)
--- NOTE | 2019-10-30 15:09 | REPVR ---
PROCEDURE INFORMATION: Exam: MR Lumbar Spine Without Contrast. Exam date and time: 10/30/2019 8:09 AM Age: 63 years old Clinical indication: Pain; Lumbago with sciatica; Right; Additional info: R sided sciatica/low back pain with urinary incontinence TECHNIQUE: Imaging protocol: Multiplanar magnetic resonance images of the lumbar spine without intravenous contrast. COMPARISON: MRI-Spine, L.S. without con 06/16/2017 8:26 PM FINDINGS: Vertebrae: Unremarkable. There is a grade 1 spondylolisthesis at L3-L4 with 7 mm retrolisthesis of L4 with respect to L3. Generalized loss of normal signal within the discs on the T2 weighted sequences reflecting disc desiccation. Spinal cord: Normal signal. No cord compression. Tip of the conus not clearly imaged and located approximately at T11-12. L1-L2: Broad-based left posterolateral disc bulge with mild narrowing intervertebral foramen and left lateral recess.. No significant spinal canal stenosis. No neural foraminal stenosis. L2-L3: Circumferential annulus bulge. Hypertrophic change within the facet joints. Hypertrophy of the ligamentum flavum. Mild narrowing lateral recesses bilaterally.. ease. No significant spinal canal stenosis. No neural foraminal stenosis. L3-L4: Circumferential annulus bulge. Advanced hypertrophic change of the facet joints. Hypertrophic change of the ligamentum flavum. Impression upon the ventral margin of thecal sac with moderate to severe central stenosis. Moderate bilateral foraminal stenosis, left greater than right. Moderate narrowing lateral recesses bilaterally L4-L5: No significant disc disease. Moderate hypertrophic change within the facet joints. Hypertrophic change of the ligamentum flavum. Narrowed lateral recesses bilaterally. Mild right foraminal stenosis. No significant spinal canal stenosis. L5-S1: No significant disc disease. Mild hypertrophic change within the facet joints. No significant spinal canal stenosis. No neural foraminal stenosis. Soft tissues: 2 cm T2 hyperintense cortical lesion mid left kidney IMPRESSION: 1. Grade 1 spondylolisthesis at L3-L4 with moderate to severe central stenosis and moderate bilateral foraminal stenosis. No significant change from previous. 2. Multilevel degenerative disc disease and facet arthropathy 3. T2 hyperintense cortical lesion in the left kidney without change from previous. It is not fully characterized on this examination. Electronically signed by: Sujata Crespo On 10/30/2019 15:08:50 PM
[2019-10-30] MEDS ORDERED: PRED20TA PO (15:25)
[2019-10-30 15:40] VITALS: BP 144/80
== END 2019-10-30 16:04 | disposition home or self-care (01) ==
LOC: M ED 07:10
DX: M54.17 Radiculopathy, lumbosacral region (principal); M54.41 Lumbago with sciatica, right side; M48.07 Spinal stenosis, lumbosacral region; M43.16 Spondylolisthesis, lumbar region; M47.816 Spondylosis without myelopathy or radiculopathy, lumbar region; M99.53 Intervertebral disc stenosis of neural canal of lumbar region; N28.9 Disorder of kidney and ureter, unspecified; Z79.01 Long term (current) use of anticoagulants; Z79.82 Long term (current) use of aspirin; Z79.899 Other long term (current) drug therapy; Z88.0 Allergy status to penicillin; Z88.2 Allergy status to sulfonamides; Z88.1 Allergy status to other antibiotic agents; Z88.5 Allergy status to narcotic agent; Z91.89 Other specified personal risk factors, not elsewhere classified
CPT/HCPCS: 72148; 80048; 81001; 85025; 96374; 99284; J2930

== ENCOUNTER 2019-11-29 14:32 | Emergency (ER) | payer MEDICARE, MEDICAID ==
[~2019-11-29] VITALS: Ht 160 cm; Wt 177.3 kg
[~2019-11-29 14:32] MED LIST changes: +PREG100C PO
[2019-11-29 16:15] VITALS: BP 126/74
== END 2019-11-29 16:17 | disposition home or self-care (01) ==
LOC: M ED 14:32
DX: S76.312A Strain of muscle, fascia and tendon of the posterior muscle group at thigh level, left thigh, initial encounter (principal); X58.XXXA Exposure to other specified factors, initial encounter; Y92.099 Unspecified place in other non-institutional residence as the place of occurrence of the external cause; Y93.9 Activity, unspecified; Y99.9 Unspecified external cause status; E66.9 Obesity, unspecified; Z79.82 Long term (current) use of aspirin; Z79.899 Other long term (current) drug therapy; Z88.2 Allergy status to sulfonamides; Z88.1 Allergy status to other antibiotic agents; Z88.0 Allergy status to penicillin; Z88.8 Allergy status to other drugs, medicaments and biological substances; Z88.5 Allergy status to narcotic agent; Z91.89 Other specified personal risk factors, not elsewhere classified

== ENCOUNTER 2019-12-04 19:01 | Emergency (ER) | payer MEDICARE, MEDICAID ==
[~2019-12-04] VITALS: Ht 160 cm; Wt 180.9 kg
--- NOTE | 2019-12-04 20:27 | REPVR ---
PROCEDURE INFORMATION: Exam: US Duplex Right Lower Extremity Veins, Limited Exam date and time: 12/04/2019 8:14 PM Age: 64 years old Clinical indication: Pain and injury or trauma; Injury history: Walking and felt pop at back of knee/lower thigh; Follow-up exam; Blunt trauma (contusions or hematomas); Right; Lower extremity, hip and thigh level; Vessel not specified; Injury date: Last week; Prior surgery; Surgery date: 6+ months; Surgery type: Knee replacement TECHNIQUE: Imaging protocol: Real-time Duplex ultrasound of the Right Lower Extremity with 2-D pineda scale, color Doppler flow and spectral waveform analysis with image documentation. Limited exam was focused on the right lower extremity veins. COMPARISON: US Duplex, Ext,LOWER veins,unilat 07/09/2019 3:30 PM FINDINGS: Right deep veins: Unremarkable. The common femoral, femoral and popliteal veins are patent without thrombus. Normal Doppler waveforms. Normal compressibility and/or augmentation response. Right superficial veins: Unremarkable. Saphenofemoral junction is patent without thrombus. Soft tissues: Prominent soft tissue swelling along the posterior thigh. No organized collection. IMPRESSION: No sonographic evidence of deep vein thrombosis. Electronically signed by: Walker Gallardo On 12/04/2019 20:27:16 PM
[2019-12-04 21:08] VITALS: BP 137/89
== END 2019-12-04 21:09 | disposition home or self-care (01) ==
LOC: M ED 19:01
DX: S76.911A Strain of unspecified muscles, fascia and tendons at thigh level, right thigh, initial encounter (principal); X58.XXXA Exposure to other specified factors, initial encounter; Y92.89 Other specified places as the place of occurrence of the external cause; I10 Essential (primary) hypertension; E11.9 Type 2 diabetes mellitus without complications; G62.9 Polyneuropathy, unspecified; F41.9 Anxiety disorder, unspecified; F43.10 Post-traumatic stress disorder, unspecified; G47.33 Obstructive sleep apnea (adult) (pediatric); Z86.711 Personal history of pulmonary embolism; Z79.899 Other long term (current) drug therapy; Z79.82 Long term (current) use of aspirin; Z79.01 Long term (current) use of anticoagulants

== ENCOUNTER 2020-01-03 13:50 | Emergency (ER) | payer MEDICARE, MEDICAID ==
[~2020-01-03] VITALS: Ht 162.6 cm; Wt 182.5 kg
[2020-01-03] MEDS ORDERED: ACET650T61 PO (14:17)
[2020-01-03] MEDS ORDERED: NS 1,000 ML IV ONE (14:30)
[2020-01-03] MEDS ORDERED: diphenhydrAMINE 50MG/ML VIAL (J1200) IV ONE (14:30)
[2020-01-03] MEDS ORDERED: ONDANSETRON 4MG/2ML VIAL IV ONE (14:30)
[2020-01-03] MEDS ORDERED: MORPHINE 4 MG/ML 1ML VIAL/SYRINGE (J2270) IV ONE (14:30)
--- NOTE | 2020-01-03 15:36 | REPVR ---
PROCEDURE INFORMATION: Exam: CT Abdomen And Pelvis Without Contrast Exam date and time: 01/03/2020 2:41 PM Age: 64 years old Clinical indication: Abdominal pain; Flank; Right; Additional info: Right flank pain, HX stones TECHNIQUE: Imaging protocol: Computed tomography of the abdomen and pelvis without contrast. Coronal and sagittal reformats were created and reviewed. Radiation optimization: All CT scans at this facility use at least one of these dose optimization techniques: automated exposure control; mA and/or kV adjustment per patient size (includes targeted exams where dose is matched to clinical indication); or iterative reconstruction. COMPARISON: CT ABD PELVIS W/O CONTRAST 12/10/2018 11:56 AM FINDINGS: Lungs: Mild peripheral ground-glass opacities of the right middle lobe, lingula and bilateral lower lobes are mildly increased compared to 12/10/2018. Mild subpleural reticulation is present in some areas of the ground-glass opacities. Heart: Stable calcification or surgical clip at the right atrium. Incompletely imaged prosthetic aortic valve. Liver: Right liver craniocaudal span = 21.8 cm. Diffuse hypoattenuation of the liver consistent with fatty infiltration. Gallbladder and bile ducts: The gallbladder is unremarkable. Pancreas: The pancreas is atrophic. Spleen: Spleen is unremarkable. Adrenals: Adrenal glands are unremarkable. Kidneys and ureters: Left renal circumscribed hypoattenuating lesions consistent with simple-appearing cysts have stable size, the largest measuring 2 cm. Multifocal bilateral renal atrophy/scarring. Nonobstructing left kidney lower pole 3 mm calculus. Nonobstructing 2 right renal calculi, measuring up to 6 mm. There is new mild right hydronephrosis in a configuration suggesting a right ureteropelvic junction obstruction. However, no obstructing right renal or ureteral calculus is identified. No left hydronephrosis. No ureteral calculus or abnormal dilation. Stomach and bowel: Status post Talon-en-Y gastric bypass surgery. No evidence of colonic inflammation or obstruction. The cecum is malpositioned within the abdominal right upper quadrant, unchanged. No evidence of small bowel inflammation or obstruction. Appendix: The appendix is visualized and has a normal appearance. Intraperitoneal space: No free intraperitoneal fluid. No pneumoperitoneum. Vasculature: Atherosclerosis. No abdominal aortic aneurysm. Lymph nodes: No enlarged lymph nodes. Bladder: No urinary bladder calculus or abnormal dilation. Reproductive: The uterus is absent. The ovaries are not identified, they are presumably surgically absent. Bones/joints: Multilevel degenerative spine disease. Among the degenerative spine disease is multilevel intervertebral disc space narrowing, vacuum disc phenomenon, vertebral endplate osteophytosis, and bilateral degenerative facet hypertrophy; this is most pronounced at the lumbar spine. Grade 1 anterolisthesis of L3 on L4. Multiple bilateral lumbar neural foraminal stenoses. Severe central spinal canal stenosis at L3-L4 secondary to the anterolisthesis and facet hypertrophy. L5 has transitional anatomy and is sacralized on the left. Mild bilateral hip osteoarthritis. Soft tissues: Surgical mesh repair of a large midline ventral abdominal wall hernia is redemonstrated. Unchanged appearance of small fat containing recurrent midline ventral abdominal wall hernias through the surgical mesh. IMPRESSION: 1. New mild right hydronephrosis in a configuration suggestive of a right ureteropelvic junction obstruction. However, no obstructing renal or ureteral calculus is identified. Nonobstructing bilateral nephrolithiasis is present. 2. Hepatomegaly. Findings consistent with hepatic steatosis. 3. Increased mild bilateral lower lung peripheral opacities suspicious for progression of interstitial lung disease. 4. Please see the body of the report for other findings as described. Electronically signed by: Gaetano Razo On 01/03/2020 15:36:46 PM
[2020-01-03 16:04] LABS: BASO % 0.4 % (0.0-1.0); EOS # 0.1 10^3/uL (0.0-0.5); EOS % 2.6 % (0.0-3.0); HEMATOCRIT 44.9 % (36.0-47.0); HEMOGLOBIN 14.1 g/dl (12.0-15.5); LYMPH # 1.4 10^3/uL (1.5-5.0); LYMPH % 25.4 % (24.0-44.0); MEAN CORPUSCULAR HEMOGLOBIN 29.4 pg (27.0-33.0); MEAN CORPUSCULAR HGB CONC 31.4 g/dl (32.0-36.5); MEAN CORPUSCULAR VOLUME 93.7 fl (80.0-96.0); MONO # 0.6 10^3/uL (0.0-0.8); NEUTROPHILS # 3.4 10^3/uL (1.5-8.5); NEUTROPHILS % 61.1 % (36.0-66.0); PLATELET COUNT, AUTOMATED 199 10^3/uL (150-450); RED BLOOD COUNT 4.79 10^6/uL (4.00-5.40); WHITE BLOOD COUNT 5.5 10^3/uL (4.0-10.0)
[2020-01-03 16:16] LABS: ALBUMIN 3.6 GM/DL (3.2-5.2); ALT/SGPT 24 U/L (12-78); BILIRUBIN,DIRECT 0.1 MG/DL (0.0-0.2); BILIRUBIN,TOTAL 0.5 MG/DL (0.2-1.0); BLOOD UREA NITROGEN 17 MG/DL (7-18); CALCIUM LEVEL 9.4 MG/DL (8.8-10.2); CARBON DIOXIDE LEVEL 31 MEQ/L (21-32); CHLORIDE LEVEL 105 MEQ/L (98-107); CREATININE FOR GFR 0.93 MG/DL (0.55-1.30); GLOMERULAR FILTRATION RATE > 60.0 (>45); GLUCOSE, FASTING 112 MG/DL (70-100); LIPASE 76 U/L (73-393); POTASSIUM SERUM 4.5 MEQ/L (3.5-5.1); SODIUM LEVEL 136 MEQ/L (136-145); TOTAL PROTEIN 6.8 GM/DL (6.4-8.2)
[2020-01-03] MEDS ORDERED: MORPHINE 2 MG/ML 1ML VIAL (J2270) IV ONE (16:30)
[2020-01-03 18:48] VITALS: BP 140/88
== END 2020-01-03 18:57 | disposition home or self-care (01) ==
LOC: M ED 13:50
DX: R10.9 Unspecified abdominal pain (principal); R16.0 Hepatomegaly, not elsewhere classified; R91.8 Other nonspecific abnormal finding of lung field; I10 Essential (primary) hypertension; G43.909 Migraine, unspecified, not intractable, without status migrainosus; Z86.711 Personal history of pulmonary embolism; G25.81 Restless legs syndrome; I33.0 Acute and subacute infective endocarditis; Z86.14 Personal history of Methicillin resistant Staphylococcus aureus infection; Z95.4 Presence of other heart-valve replacement; Z98.84 Bariatric surgery status; Z79.01 Long term (current) use of anticoagulants; Z79.82 Long term (current) use of aspirin; Z79.899 Other long term (current) drug therapy; Z88.0 Allergy status to penicillin; Z88.2 Allergy status to sulfonamides; Z88.1 Allergy status to other antibiotic agents; Z88.5 Allergy status to narcotic agent; Z88.8 Allergy status to other drugs, medicaments and biological substances; Z91.89 Other specified personal risk factors, not elsewhere classified
CPT/HCPCS: 74176; 80048; 80076; 81001; 83690; 85025; 87086; 96361; 96374; 96375; 96376; 99284; J1200; J2270; J2405

== ENCOUNTER 2020-01-10 14:28 | Emergency (ER) | payer MEDICARE, MEDICAID ==
[~2020-01-10 14:28] MED LIST changes: +ACET650T61 PO
[2020-01-10 16:53] LABS: BASO % 0.4 % (0.0-1.0); EOS # 0.1 10^3/uL (0.0-0.5); HEMATOCRIT 43.9 % (36.0-47.0); HEMOGLOBIN 13.5 g/dl (12.0-15.5); LYMPH # 1.3 10^3/uL (1.5-5.0); LYMPH % 25.4 % (24.0-44.0); MEAN CORPUSCULAR HEMOGLOBIN 29.1 pg (27.0-33.0); MEAN CORPUSCULAR HGB CONC 30.8 g/dl (32.0-36.5); MEAN CORPUSCULAR VOLUME 94.6 fl (80.0-96.0); MONO # 0.6 10^3/uL (0.0-0.8); MONO % 11.4 % (0.0-5.0); NEUTROPHILS # 3.1 10^3/uL (1.5-8.5); PLATELET COUNT, AUTOMATED 157 10^3/uL (150-450); RED BLOOD COUNT 4.64 10^6/uL (4.00-5.40); WHITE BLOOD COUNT 5.1 10^3/uL (4.0-10.0)
[2020-01-10 17:21] LABS: ALBUMIN 3.4 GM/DL (3.2-5.2); ALT/SGPT 20 U/L (12-78); BILIRUBIN,DIRECT < 0.1 MG/DL (0.0-0.2); BILIRUBIN,TOTAL 0.4 MG/DL (0.2-1.0); BLOOD UREA NITROGEN 10 MG/DL (7-18); CALCIUM LEVEL 9.3 MG/DL (8.8-10.2); CARBON DIOXIDE LEVEL 32 MEQ/L (21-32); CHLORIDE LEVEL 104 MEQ/L (98-107); CK-MB VALUE MASS 1.2 NG/ML (<3.6); CPK CREATINE PHOSPHOKINASE 65 U/L (26-192); GLOMERULAR FILTRATION RATE > 60.0 (>45); GLUCOSE, FASTING 88 MG/DL (70-100); MB/CK RELATIVE INDEX 1.85 (< OR =4); NT-PRO BNP 297 PG/ML (<125); POTASSIUM SERUM 4.4 MEQ/L (3.5-5.1); SODIUM LEVEL 141 MEQ/L (136-145); TOTAL PROTEIN 6.7 GM/DL (6.4-8.2); TROPONIN I < 0.02 NG/ML (< 0.10)
[2020-01-10 18:53] VITALS: BP 142/73
[2020-01-10] MEDS ORDERED: ISOVUE-370 76% 100ML VIAL As Ordered ONE (19:03)
--- NOTE | 2020-01-10 20:22 | REPVR ---
PROCEDURE INFORMATION: Exam: CT Abdomen And Pelvis With Contrast Exam date and time: 01/10/2020 7:11 PM Age: 64 years old Clinical indication: Abdominal pain; Generalized; Additional info: SOB; Abdominal pain; HX of pe TECHNIQUE: Imaging protocol: Computed tomography of the abdomen and pelvis with intravenous contrast. Radiation optimization: All CT scans at this facility use at least one of these dose optimization techniques: automated exposure control; mA and/or kV adjustment per patient size (includes targeted exams where dose is matched to clinical indication); or iterative reconstruction. Contrast material: ISOVUE 370; Contrast volume: 100 ml; Contrast route: INTRAVENOUS (IV); COMPARISON: CT ABD PELVIS W/O CONTRAST 01/03/2020 2:36 PM FINDINGS: Lungs: Refer to the CTA chest report on 01/10/2020 for details. There are mild ground-glass opacities in a peripheral distribution in the lung bases, which are fairly similar in appearance compared to the prior CT abdomen and pelvis on 01/03/2020. The lungs were not fully imaged. Heart: Refer to the CTA chest report on 01/10/2020 for details. There is an aortic valve prosthesis. Coronary artery calcifications are present. Liver: There is fatty infiltration of the liver. No liver lesion. The contour of the liver is smooth. The liver is enlarged and measures 20.3 cm in craniocaudal dimension at the level of the right midclavicular line. Gallbladder and bile ducts: The gallbladder is distended. No calcified gallstones are seen. No gallbladder wall thickening, pericholecystic fluid, or pericholecystic inflammatory changes are identified. No dilation of the bile ducts is noted. No calcified stones are seen in the common bile duct. Pancreas: Normal. No dilation of the main pancreatic duct is noted. There is no inflammatory fat stranding around the pancreas to suggest acute pancreatitis. Spleen: Normal. No splenomegaly is noted. Adrenals: Normal. No adrenal mass is noted. Kidneys and ureters: There is a 2 cm simple exophytic cyst arising from the posterior aspect of the midpole of the left kidney, which is unchanged compared to the prior CT abdomen and pelvis on 01/03/2020 and for which further imaging is not recommended. There is bilateral nonobstructive nephrolithiasis. No stones are noted in the ureters. There is no hydronephrosis or hydroureter. There are no wedge-shaped areas of low attenuation in the kidneys to suggest pyelonephritis. There is no renal abscess or perinephric fluid collection. Stomach and bowel: Postoperative changes are noted from a Talon-en-Y gastric bypass surgery. There is no evidence for a bowel obstruction, diverticulosis, diverticulitis, colitis, perforated viscus, pneumatosis intestinalis, intussusception, or volvulus. Appendix: Normal. There is no evidence for appendicitis. Intraperitoneal space: No free air. No ascites. No asbcess. Retroperitoneal space: No fluid collection. No mass. Vasculature: The abdominal aorta is patent, normal in caliber, and there is no dissection. The iliac arteries, common femoral arteries, renal arteries, celiac artery, superior mesenteric artery, and inferior mesenteric artery are patent. Lymph nodes: No enlarged lymph nodes. Bladder: The partially distended urinary bladder is unremarkable. No stones or masses are seen in the bladder. Reproductive: There has been a hysterectomy. Bones/joints: There is no fracture. No suspicious osteolytic or osteoblastic lesion. 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 T12 is designated as the last vertebral body that has ribs. There are degenerative changes involving the lumbar spine. There is a grade 1 anterolisthesis of L3 on L4 secondary to severe osteoarthritis of the L3-L4 facet joints. Soft tissues: There is severe atrophy and laxity of the rectus abdominus muscles that is similar in appearance compared to the prior CT on 01/03/2020. There are several small fat containing ventral hernias that are similar in appearance compared to the prior CT on 01/03/2020. IMPRESSION: 1. No acute findings in the abdomen or pelvis. 2. Mild ground-glass opacities in a peripheral distribution in the lung bases, which are fairly similar in appearance compared to the prior CT abdomen and pelvis on 01/03/2020. Imaging features can be seen with COVID-19 pneumonia, though are nonspecific and can occur with a variety of infectious and noninfectious processes. 3. Fatty liver. 4. Severe atrophy and laxity of the rectus abdominus muscles and several small fat containing ventral hernias, which are similar findings compared to the prior CT abdomen and pelvis on 01/03/2020. REFERENCES: Pedro Giron et al., Radiological Society of [place] Expert Consensus Statement on Reporting Chest CT Findings Related to COVID-19. Endorsed by the Society of Thoracic Radiology, the [place], and RSNA. Published August 07, 2019. Electronically signed by: Anthony Sin On 01/10/2020 20:22:22 PM
--- NOTE | 2020-01-10 20:23 | REPVR ---
PROCEDURE INFORMATION: Exam: CT Angiography Chest With Contrast Exam date and time: 01/10/2020 7:11 PM Age: 64 years old Clinical indication: Shortness of breath; Additional info: Abdominal pain; HX of pe TECHNIQUE: Imaging protocol: Computed tomographic angiography of the chest with intravenous contrast. 3D rendering (Not supervised by radiologist): MIP and/or 3D reconstructed images were created by the technologist. Radiation optimization: All CT scans at this facility use at least one of these dose optimization techniques: automated exposure control; mA and/or kV adjustment per patient size (includes targeted exams where dose is matched to clinical indication); or iterative reconstruction. Contrast material: ISOVUE 370; Contrast volume: 100 ml; Contrast route: INTRAVENOUS (IV); COMPARISON: 1. CT ANGIO CHEST 07/09/2019 4:[address] ABD PELVIS W/O CONTRAST 01/03/2020 2:36:16 PM FINDINGS: Pulmonary arteries: No pulmonary embolism. Aorta: The thoracic aorta is intact and patent. There is no thoracic aortic aneurysm, pseudoaneurysm, penetrating atherosclerotic ulcer, intramural hematoma, or dissection. Veins: Patent. Tracheobronchial tree: Intact and patent. Lungs: There are mild ground-glass opacities in a predominantly peripheral distribution in the right middle lobe, right lower lobe, lingula, and left lower lobe. No superimposed consolidation or cavitation is noted. Pleural space: Normal. No pneumothorax or pleural effusion. Heart: An aortic valve prosthesis is present. No cardiomegaly or pericardial effusion is noted. There are coronary artery calcifications. Mediastinal space: No mediastinal mass, fluid collection, or pneumomediastinum. Lymph nodes: Normal. No enlarged lymph nodes. Bones/joints: There is severe degenerative changes of the right glenohumeral joint and a right glenohumeral joint effusion. The right shoulder was not fully imaged. Intact median sternotomy suture wires are in place fixating a healed median sternotomy. No acute fracture or bony destructive changes are noted. There are endplate spurs in the thoracic spine. Soft tissues: Unremarkable. Other findings: Refer to the CT abdomen and pelvis report on 01/10/2020 for details regarding the abdominal and pelvic findings. IMPRESSION: 1. No pulmonary embolism. 2. Mild nonspecific ground-glass opacities in a predominantly peripheral distribution in the right middle lobe, right lower lobe, lingula, and left lower lobe, which are fairly similar in appearance compared to the prior CT abdomen and pelvis on 01/03/2020. Imaging features can be seen with COVID-19 pneumonia, though are nonspecific and can occur with a variety of infectious and noninfectious processes. REFERENCES: Pedro Giron et al., Radiological Society of [place] Expert Consensus Statement on Reporting Chest CT Findings Related to COVID-19. Endorsed by the Society of Thoracic Radiology, the [employer] [employer], and RSNA. Published August 07, 2019. Electronically signed by: Anthony Sin On 01/10/2020 20:23:32 PM
[2020-01-10 20:54] LABS: INR 1.07; PROTHROMBIN TIME 14.1 SECONDS (11.8-14.0)
[2020-01-10 20:55] LABS: PARTIAL THROMBOPLASTIN TIME 26.4 SECONDS (25.0-38.4)
[2020-01-10] MEDS ORDERED: NORC1TAB7 PO (21:08)
--- NOTE | 2020-01-13 14:04 | ED PDOC ---
Post-Departure Follow-Up dr corado and dr cintia chacko faxed formal reports of cta chest, abd/p for fu Julieta Costa MD Jan 13, 2020 14:04
--- NOTE | 2020-01-23 15:32 | ECGEPIP ---
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
== END 2020-01-10 21:48 | disposition home or self-care (01) ==
LOC: M ED 14:28
DX: G89.29 Other chronic pain (principal); M54.5 Low back pain; R06.02 Shortness of breath; R10.9 Unspecified abdominal pain; I45.19 Other right bundle-branch block; E11.9 Type 2 diabetes mellitus without complications; I10 Essential (primary) hypertension; Z86.711 Personal history of pulmonary embolism; Z79.899 Other long term (current) drug therapy; Z79.82 Long term (current) use of aspirin; Z79.01 Long term (current) use of anticoagulants; Z88.0 Allergy status to penicillin; Z88.1 Allergy status to other antibiotic agents; Z88.2 Allergy status to sulfonamides; Z88.5 Allergy status to narcotic agent; Z88.8 Allergy status to other drugs, medicaments and biological substances; Z91.048 Other nonmedicinal substance allergy status
CPT/HCPCS: 36415; 71275; 74177; 80048; 80076; 82550; 82553; 83880; 84443; 84484; 85025; 85610; 85730; 93005; 93041; 94760; 99284; Q9967; U0002

== ENCOUNTER → 2020-01-21 | Outpatient (CLI) | payer MEDICARE, MEDICAID | LOC: M PAIN 08:17 | PROVIDERS: ATTEND Nurse Practitioner Family | DX: M47.816 Spondylosis without myelopathy or radiculopathy, lumbar region (principal); Z79.891 Long term (current) use of opiate analgesic ==

== ENCOUNTER → 2020-03-06 | Outpatient (REF) | payer MEDICARE, MEDICAID ==
[2020-03-06 13:30] LABS: HEMATOCRIT 46.8 % (36.0-47.0); MEAN CORPUSCULAR HEMOGLOBIN 28.4 pg (27.0-33.0); MEAN CORPUSCULAR HGB CONC 29.9 g/dl (32.0-36.5); MEAN CORPUSCULAR VOLUME 94.9 fl (80.0-96.0); PLATELET COUNT, AUTOMATED 200 10^3/uL (150-450); RED BLOOD COUNT 4.93 10^6/uL (4.00-5.40); WHITE BLOOD COUNT 5.5 10^3/uL (4.0-10.0)
[2020-03-06 13:39] LABS: INR 0.93; PARTIAL THROMBOPLASTIN TIME 30.5 SECONDS (24.2-38.5); PROTHROMBIN TIME 12.7 SECONDS (12.5-14.3)
[2020-03-06 14:06] LABS: BLOOD UREA NITROGEN 21 MG/DL (7-18); CARBON DIOXIDE LEVEL 30 MEQ/L (21-32); CHLORIDE LEVEL 103 MEQ/L (98-107); CREATININE FOR GFR 0.89 MG/DL (0.55-1.30); GLOMERULAR FILTRATION RATE > 60.0 (>45); GLUCOSE, FASTING 97 MG/DL (70-100); POTASSIUM SERUM 4.5 MEQ/L (3.5-5.1); SODIUM LEVEL 140 MEQ/L (136-145)
[2020-03-06 14:07] LABS: CALCIUM LEVEL 9.4 MG/DL (8.8-10.2)
== END ==
LOC: M SFHCPLAZ 11:10
PROVIDERS: ATTEND Family Medicine
DX: Z01.818 Encounter for other preprocedural examination (principal); I10 Essential (primary) hypertension; Z86.711 Personal history of pulmonary embolism; Z79.01 Long term (current) use of anticoagulants
CPT/HCPCS: 36415; 80048; 85027; 85610; 85730; 93005; G0463

== ENCOUNTER → 2020-03-09 | Outpatient (CLI) | payer MEDICARE, MEDICAID ==
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
== END ==
LOC: M PAIN 11:00
PROVIDERS: ATTEND Nurse Practitioner Family
DX: M48.07 Spinal stenosis, lumbosacral region (principal); E66.01 Morbid (severe) obesity due to excess calories; F32.9 Major depressive disorder, single episode, unspecified; F41.9 Anxiety disorder, unspecified; D63.8 Anemia in other chronic diseases classified elsewhere; I10 Essential (primary) hypertension; Z86.711 Personal history of pulmonary embolism; Z88.2 Allergy status to sulfonamides; Z88.0 Allergy status to penicillin; Z88.1 Allergy status to other antibiotic agents; Z88.8 Allergy status to other drugs, medicaments and biological substances; Z68.44 Body mass index [BMI] 60.0-69.9, adult

== ENCOUNTER → 2020-03-18 | Outpatient (CLI) | payer MEDICARE, MEDICAID | LOC: M LABSMTC 11:09 | PROVIDERS: ATTEND Anesthesiology | DX: Z20.828 Contact with and (suspected) exposure to other viral communicable diseases (principal) | CPT/HCPCS: C9803; U0003 ==

== ENCOUNTER → 2020-03-23 | Outpatient (CLI) | payer MEDICARE, MEDICAID ==
[~2020-03-23] MED LIST changes: +ISOVUE-M 300 61% 15ML VIAL As Ordered ONE; +LIDOCAINE 1% SDV 30ML VIAL As Ordered ONE; +NORCO, ANEXSIA 5/325MG TABLET (HYDROcodone/ACETAMINOPHEN) As Ordered ONE; +diazePAM 5 MG TAB As Ordered ONE; +methylPREDNISolone SUSP 40MG/ML 1ML VIAL (DEPO MEDROL) As Ordered ONE
--- NOTE | 2020-03-23 16:55 | REP ---
INDICATION: LUMBAR EPIDURAL. Injection procedure for pain. COMPARISON: None. TECHNIQUE: Three views. 24.2 seconds of fluoroscopy time is reported. FINDINGS: A sequence of 3 last image hold fluoroscopically obtained spot radiograph(s) of the lumbar spine document(s) needle position(s) and contrast injection associated with injection procedure. IMPRESSION: Procedural imaging. <Electronically signed by Brent Dixon > 03/23/20 [id number]
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
== END ==
LOC: M PAIN 14:30
PROVIDERS: ATTEND Anesthesiology
DX: M51.16 Intervertebral disc disorders with radiculopathy, lumbar region (principal); G47.30 Sleep apnea, unspecified; I10 Essential (primary) hypertension; Z86.14 Personal history of Methicillin resistant Staphylococcus aureus infection; Z86.59 Personal history of other mental and behavioral disorders; Z96.611 Presence of right artificial shoulder joint; Z96.653 Presence of artificial knee joint, bilateral; Z98.84 Bariatric surgery status; Z88.0 Allergy status to penicillin; Z88.1 Allergy status to other antibiotic agents; Z88.5 Allergy status to narcotic agent; Z88.8 Allergy status to other drugs, medicaments and biological substances; Z91.09 Other allergy status, other than to drugs and biological substances; E66.01 Morbid (severe) obesity due to excess calories; Z68.44 Body mass index [BMI] 60.0-69.9, adult; Z79.01 Long term (current) use of anticoagulants; Z79.899 Other long term (current) drug therapy
CPT/HCPCS: 62323; J1030; Q9967

== ENCOUNTER → 2020-04-08 | Outpatient (CLI) | payer MEDICARE, MEDICAID ==
[~2020-04-08] MED LIST changes: -ISOVUE-M 300 61% 15ML VIAL As Ordered ONE; -LIDOCAINE 1% SDV 30ML VIAL As Ordered ONE; -NORCO, ANEXSIA 5/325MG TABLET (HYDROcodone/ACETAMINOPHEN) As Ordered ONE; -diazePAM 5 MG TAB As Ordered ONE; -methylPREDNISolone SUSP 40MG/ML 1ML VIAL (DEPO MEDROL) As Ordered ONE
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
== END ==
LOC: M PAIN 14:30
PROVIDERS: ATTEND Nurse Practitioner Family
DX: M48.07 Spinal stenosis, lumbosacral region (principal); Z95.3 Presence of xenogenic heart valve; E66.01 Morbid (severe) obesity due to excess calories; F32.9 Major depressive disorder, single episode, unspecified; F41.9 Anxiety disorder, unspecified; D63.8 Anemia in other chronic diseases classified elsewhere; I10 Essential (primary) hypertension; Z79.01 Long term (current) use of anticoagulants; Z86.711 Personal history of pulmonary embolism; Z79.899 Other long term (current) drug therapy; Z88.1 Allergy status to other antibiotic agents; Z88.2 Allergy status to sulfonamides; Z88.0 Allergy status to penicillin; Z88.8 Allergy status to other drugs, medicaments and biological substances; Z91.048 Other nonmedicinal substance allergy status

== ENCOUNTER → 2020-05-22 | Outpatient (CLI) | payer MEDICARE, MEDICAID ==
[~2020-05-22] MED LIST changes: +CYAN500T14 PO; -CYAN500T8 PO
== END ==
LOC: M LABSMTC 10:08
PROVIDERS: ATTEND Anesthesiology
DX: Z01.812 Encounter for preprocedural laboratory examination (principal); Z11.52 Encounter for screening for COVID-19; R32 Unspecified urinary incontinence; K90.9 Intestinal malabsorption, unspecified; D63.8 Anemia in other chronic diseases classified elsewhere; E55.9 Vitamin D deficiency, unspecified; Z13.220 Encounter for screening for lipoid disorders; Z79.899 Other long term (current) drug therapy
CPT/HCPCS: 36415; 80053; 80061; 81001; 82306; 82607; 82728; 82747; 83036; 83550; 83735; 84100; 84425; 84590; 85027; 87086; G0463; U0003

== ENCOUNTER → 2020-05-22 | Outpatient (REF) | payer MEDICARE, MEDICAID ==
[2020-05-22 14:11] LABS: APPEARANCE, URINE CLOUDY (CLEAR); BACTERIA, URINE AUTO 1+ (NEGATIVE); BILIRUBIN, URINE AUTO NEGATIVE (NEGATIVE); BLOOD, URINE BLOOD 1+ (NEGATIVE); CALCIUM OXALATE CRYSTALS LARGE; COLOR, URINE YELLOW (YELLOW); GLUCOSE, URINE (UA) AUTO NEGATIVE (NEGATIVE); KETONE, URINE AUTO NEGATIVE (NEGATIVE); LEUKOCYTE ESTERASE, URINE AUTO 1+ (NEGATIVE); MUCUS, URINE SMALL (NEGATIVE); NITRITE, URINE AUTO NEGATIVE (NEGATIVE); PROTEIN, URINE AUTO NEGATIVE (NEGATIVE); RBC, URINE AUTO 23 /HPF (0-3); SPECIFIC GRAVITY URINE AUTO 1.018 (1.002-1.035); SQUAMOUS EPITHELIAL CELL UR AU 5 /HPF (0-6); UROBILINOGEN, URINE AUTO 0.2 mg/dL (0.0-2.0); WBC, URINE AUTO 27 /HPF (0-3)
== END ==
LOC: M SMT 12:38
PROVIDERS: ATTEND Urology
DX: R32 Unspecified urinary incontinence (principal)

== ENCOUNTER → 2020-05-22 | Outpatient (REF) | payer MEDICARE, MEDICAID ==
[2020-05-22 13:59] LABS: HEMATOCRIT 44.4 % (36.0-47.0); HEMOGLOBIN 13.5 g/dl (12.0-15.5); MEAN CORPUSCULAR HEMOGLOBIN 28.5 pg (27.0-33.0); MEAN CORPUSCULAR HGB CONC 30.4 g/dl (32.0-36.5); MEAN CORPUSCULAR VOLUME 93.9 fl (80.0-96.0); PLATELET COUNT, AUTOMATED 189 10^3/uL (150-450); RED BLOOD COUNT 4.73 10^6/uL (4.00-5.40); WHITE BLOOD COUNT 4.4 10^3/uL (4.0-10.0)
[2020-05-22 14:00] LABS: HEMATOCRIT 44.4 % (36.0-47.0)
[2020-05-22 14:48] LABS: ALBUMIN 3.8 GM/DL (3.2-5.2); ALT/SGPT 22 U/L (12-78); BILIRUBIN,TOTAL 0.4 MG/DL (0.2-1.0); BLOOD UREA NITROGEN 19 MG/DL (7-18); CALCIUM LEVEL 9.4 MG/DL (8.8-10.2); CARBON DIOXIDE LEVEL 30 MEQ/L (21-32); CHLORIDE LEVEL 102 MEQ/L (98-107); CHOLESTEROL LEVEL 212 MG/DL (<200); CHOLESTEROL RISK RATIO 3.212 (<5); CREATININE FOR GFR 0.93 MG/DL (0.55-1.30); FERRITIN 40 NG/ML (8-252); GLOMERULAR FILTRATION RATE > 60.0 (>45); GLUCOSE, FASTING 112 MG/DL (70-100); HDL CHOLESTEROL 66 MG/DL (>40); IRON (FE) 59 UG/DL (50-170); LDL CHOLESTEROL 106 MG/DL (<100); MAGNESIUM LEVEL 2.3 MG/DL (1.8-2.4); NON-HDL-C 146 MG/DL; PERCENT SATURATION 16.9 % (13.2-45.0); POTASSIUM SERUM 4.6 MEQ/L (3.5-5.1); SODIUM LEVEL 139 MEQ/L (136-145); TOTAL IRON BINDING CAPACITY 350 UG/DL (250-450); TOTAL PROTEIN 6.8 GM/DL (6.4-8.2); TRIGLYCERIDES LEVEL 198 MG/DL (<150); VITAMIN B12 LEVEL 912 PG/ML (247-911)
[2020-05-22 15:16] LABS: HEMOGLOBIN A1c 5.7 %
== END ==
LOC: M PLALAB 09:15
PROVIDERS: ATTEND Family Medicine
DX: K90.9 Intestinal malabsorption, unspecified (principal); D63.8 Anemia in other chronic diseases classified elsewhere; E55.9 Vitamin D deficiency, unspecified; Z13.220 Encounter for screening for lipoid disorders; Z79.899 Other long term (current) drug therapy

== ENCOUNTER → 2020-05-27 | Outpatient (CLI) | payer MEDICARE, MEDICAID ==
[~2020-05-27] MED LIST changes: +BUPIVACAINE HCL 0.25% 30ML VIAL As Ordered ONE; +ISOVUE-M 300 61% 15ML VIAL As Ordered ONE; +LIDOCAINE 1% SDV 30ML VIAL As Ordered ONE; +NORCO, ANEXSIA 5/325MG TABLET (HYDROcodone/ACETAMINOPHEN) As Ordered ONE; +TRIAMCINOLONE ACETONIDE SUSP 40 MG/ML VIAL (J3301) As Ordered ONE; +diazePAM 5MG TABLET As Ordered ONE
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
== END ==
LOC: M PAIN 11:00
PROVIDERS: ATTEND Anesthesiology
DX: M47.816 Spondylosis without myelopathy or radiculopathy, lumbar region (principal); M47.817 Spondylosis without myelopathy or radiculopathy, lumbosacral region; G47.30 Sleep apnea, unspecified; Z86.59 Personal history of other mental and behavioral disorders; Z86.14 Personal history of Methicillin resistant Staphylococcus aureus infection; Z96.611 Presence of right artificial shoulder joint; Z86.711 Personal history of pulmonary embolism; Z96.653 Presence of artificial knee joint, bilateral; Z98.84 Bariatric surgery status; Z88.0 Allergy status to penicillin; Z88.1 Allergy status to other antibiotic agents; Z88.5 Allergy status to narcotic agent; Z88.8 Allergy status to other drugs, medicaments and biological substances; Z91.09 Other allergy status, other than to drugs and biological substances; E66.01 Morbid (severe) obesity due to excess calories; Z68.45 Body mass index [BMI] 70 or greater, adult; Z79.01 Long term (current) use of anticoagulants; Z79.899 Other long term (current) drug therapy
CPT/HCPCS: 64493; 64494; J3301; Q9967

== ENCOUNTER → 2020-06-11 | Outpatient (CLI) | payer MEDICARE, MEDICAID ==
[~2020-06-11] MED LIST changes: +AMOX500C PO; -BUPIVACAINE HCL 0.25% 30ML VIAL As Ordered ONE; -ISOVUE-M 300 61% 15ML VIAL As Ordered ONE; -LIDOCAINE 1% SDV 30ML VIAL As Ordered ONE; -NORCO, ANEXSIA 5/325MG TABLET (HYDROcodone/ACETAMINOPHEN) As Ordered ONE; -TRIAMCINOLONE ACETONIDE SUSP 40 MG/ML VIAL (J3301) As Ordered ONE; -diazePAM 5MG TABLET As Ordered ONE
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
== END ==
LOC: M PAIN 09:30
PROVIDERS: ATTEND Nurse Practitioner Family
DX: G89.29 Other chronic pain (principal); N62 Hypertrophy of breast; M47.816 Spondylosis without myelopathy or radiculopathy, lumbar region; Z86.14 Personal history of Methicillin resistant Staphylococcus aureus infection; Z86.59 Personal history of other mental and behavioral disorders; Z96.611 Presence of right artificial shoulder joint; Z88.0 Allergy status to penicillin; Z88.1 Allergy status to other antibiotic agents; Z88.5 Allergy status to narcotic agent; Z88.8 Allergy status to other drugs, medicaments and biological substances; Z91.09 Other allergy status, other than to drugs and biological substances; E66.01 Morbid (severe) obesity due to excess calories; Z68.44 Body mass index [BMI] 60.0-69.9, adult; Z79.01 Long term (current) use of anticoagulants; Z79.899 Other long term (current) drug therapy; M25.511 Pain in right shoulder; Z95.2 Presence of prosthetic heart valve; F43.10 Post-traumatic stress disorder, unspecified; F41.1 Generalized anxiety disorder; F33.1 Major depressive disorder, recurrent, moderate
CPT/HCPCS: 36415; 80048; 83880; 85027; 85610; 85730; 90834; 93005; G0463

== ENCOUNTER → 2020-06-11 | Outpatient (REF) | payer MEDICARE, MEDICAID ==
[2020-06-11 18:03] LABS: HEMOGLOBIN 13.6 g/dl (12.0-15.5); MEAN CORPUSCULAR HEMOGLOBIN 28.9 pg (27.0-33.0); MEAN CORPUSCULAR HGB CONC 30.2 g/dl (32.0-36.5); MEAN CORPUSCULAR VOLUME 95.5 fl (80.0-96.0); PLATELET COUNT, AUTOMATED 187 10^3/uL (150-450); RED BLOOD COUNT 4.71 10^6/uL (4.00-5.40); WHITE BLOOD COUNT 8.8 10^3/uL (4.0-10.0)
[2020-06-11 18:17] LABS: INR 1.01; PROTHROMBIN TIME 13.5 SECONDS (12.5-14.3)
[2020-06-11 18:18] LABS: PARTIAL THROMBOPLASTIN TIME 29.4 SECONDS (24.2-38.5)
[2020-06-11 18:39] LABS: BLOOD UREA NITROGEN 20 MG/DL (7-18); CALCIUM LEVEL 9.6 MG/DL (8.8-10.2); CARBON DIOXIDE LEVEL 32 MEQ/L (21-32); CHLORIDE LEVEL 105 MEQ/L (98-107); CREATININE FOR GFR 0.98 MG/DL (0.55-1.30); GLOMERULAR FILTRATION RATE > 60.0 (>45); GLUCOSE, FASTING 86 MG/DL (70-100); NT-PRO BNP 290 PG/ML (<125); POTASSIUM SERUM 4.4 MEQ/L (3.5-5.1); SODIUM LEVEL 143 MEQ/L (136-145)
== END ==
LOC: M SFHCPLAZ 14:49
PROVIDERS: ATTEND Family Medicine
DX: Z01.818 Encounter for other preprocedural examination (principal); M25.511 Pain in right shoulder; Z95.2 Presence of prosthetic heart valve
CPT/HCPCS: 36415; 80048; 83880; 85027; 85610; 85730; 93005; G0463

== ENCOUNTER 2020-06-29 23:09 | Emergency (ER) | payer MEDICARE, MEDICAID ==
[~2020-06-29] VITALS: Ht 165.1 cm; Wt 183.1 kg
[~2020-06-29 23:09] MED LIST changes: -AMOX500C PO
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
--- OUTSIDE RECORDS SUMMARY | 2020-06-29 23:20 | CCD ---
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 Name Role Phone Merlin Marsh Unavailable PROBLEMS Type Condition ICD9-CM Code [id number] Code Onset Dates Condition S tatus W/U Status Risk SNOMED Code Notes Problem Sleep apnea, unspecified G47.30 Active confirmed 01765866 Problem Anemia in other chronic diseases classified elsewhere D63.8 Active confirmed 389298763 Problem Morbid (severe) obesity due to excess calories E66 .01 Active confirmed 521244587 Problem Kidney stones N20.0 Active confirmed 575866 07 Problem Bariatric surgery status Z98.84 Active confirmed 402645683 Problem Vitamin D deficiency E55.9 Active confirmed 01451801 Problem Essential hypertension I10 Active confirmed 33265556 Problem Drug-induced polyneuropathy G62.0 Active confirmed 0409275 Problem Acute right-sided low back pain with right-sided sciatica M54.41 Active confirmed 261568922 Problem History of MRSA infection Z86.14 Active confirmed 801605701 Problem S/P AVR (aortic valve replacement) Z95.2 Activ e confirmed 9663915405920 Problem Left-sided low back pain wit h left-sided sciatica, unspecified chronicity M54.42 Active confirmed 211851463 Problem Hx of pulmonary embolus Z86.711 Active confirmed 155866391 Problem Seasonal allergic rhinitis, unspecified trigger J3 0.2 Active confirmed 067970009 Problem Gastroesophageal reflux disease, esophagitis pre sence not specified K21.9 Active confirmed 981097772 Problem Microscopic hematuria R31.29 Active confirmed 514441801 Problem Other chronic pain G89.29 Active confirmed 8 6158105 Problem Body mass index (BMI) 60.0-69.9, adult Z68.44 A ctive confirmed 162051908 Problem Mixed stress and urge urinary incontinence N39.46 Active confirmed 951173817 Problem Post-traumatic stress disorder, unspecified F43.10 Active confirmed 91164974 Problem Generalized anxiety disorder F41.1 Active confirme d 51464953 Problem Spondylosis without myelopathy or radiculopathy, lumbosacral region M47.817 Active confirmed 05077127 Problem Migraine without status migr ainosus, not intractable, unspecified migraine type G43.909 Active confirmed 15773448 Problem Spondylosis without myelopathy or radiculopathy, lumbar region M47.816 Active confirmed 720289203 Problem RLS (restless legs syndrome) G25.81 Active confirme d 57095220 Problem Gouty arthritis of toe of right foot M10.9 Act jez confirmed 189926305 Problem Major depressive disorder, recurrent, moderate F33 .1 Active confirmed 196904739 Problem Lumbago with sciatica, right side M54.41 Active confirmed 614681676 Problem Intestinal malabsorption, unspecified type K90.9 Active confirmed 266117020 Problem Urinary incontinence R32 Active confirmed 928303923 ALLERGIES Allergen (clinical drug ingredient) Drug/Non Drug Allergy do cumented on EMR Reaction Allergy Type Onset Date Status tetracycline Tetracycline HCl(NDC Code:[address]-66) Rash Drug Allergy Active penicillin V Penicillin V Potassium(NDC Code:[address]-30) Rash Drug Allergy Active Levaquin IV pruritis, redness Drug Allergy Ac tive duracef Rash Non Drug Allergy Active Myrbetriq itching Drug Allergy Active fentanyl Fentanyl(NDC Code:[address]-82) itching "I want to rip my skin off" Drug Allergy Active vancomycin Vancomycin HCl(NDC Code:[address]-40) i tching "I want to rip my skin off" Drug Allergy Active Adhesive Bandages rash,blisters Drug Allergy Ac tive sulfamethoxazole / trimethoprim Bactrim(NDC Code:[address]-86) Anaphylaxis Drug Allergy Active erythromycin Erythromycin(NDC Code:[address]-88) Rash Drug All ergy Active morphine Morphine Sulfate(NDC Code:[address]-28) IV = BURNING AND ITCHING BUT CAN TAKE WITH BENADRYL Drug Allergy Active ENCOUNTERS from 1955 to 2020-06-18 Encounter Location Date Provider Diagnosis [facility] [address] [place] [address] May Merlin Marsh IMMUNIZATIONS Vaccine Route Administration Date Status Influenza (18 yrs & older) Flublok IM Intramuscular Feb 28, 2020 Administered Pneumococcal 0.5mL (Prevnar 13) IM Intramuscular Feb 13, 2018 Administered Influenza (18 yrs & older) Flublok IM Intramuscular Feb 13, 2018 Administered Pneumococcal Adult 0.5mL (Pneumovax 23) Unknown August Administered Influenza (6mo & up) Fluzone IM [...] Education Language: Question Answer Notes Languages spoken: Occitan Holiness: Question Answer Notes Holiness 33 None Drug and Alcohol Question Answer Notes Total Score: 0 Interpretation: No problems reported BMI Care Goal Follow-Up Question Answer Notes Above Normal BMI Follow-Up Dietary management educatio n, guidance, and counseling Tobacco Use: Question Answer Notes Are you a: never smoker REASON FOR REFERRAL No Information VITAL SIGNS No information MEDICATIONS Medication SIG (Take, Route, Frequency, Duration) Notes Start Da te End Date Status Cymbalta 60 MG 1 capsule Orally Once a day Jul, Active Metoprolol Tartrate 25 MG 1 tablet with food Orally Twice a day Active Tylenol with Codeine #4 1 tablet orally every 6 hours as needed MDD 4 Not-Taking Calcium 500 + D3 500-200 MG-UNIT 1 tablet with a meal Orally Once a d ay Active Tab-A-Tyler - 1 tablet Orally Once a day Active Triamcinolone Acetonide 0.1 % 1 application Externally Twice a d ay Aug, Active Vitamin B-12 2500 MCG 1 tablet Sublingual Daily Active Gabapentin 600 MG 1 tablet Orally three times a day Feb Active Ropinirole HCl 5 MG 1 tab Orally before bedtime Active Myrbetriq 50 MG 1 tablet Orally Once a day May, Not-Taking Oxybutynin Chloride ER 10 MG 1 tablet Orally Once a day Jun, Active Eliquis 2.5 MG 1 tablet Orally bid Apr, Active Tylenol Arthritis Pain 650 mg 2 tablets oral every bedtime Active Vitamin D3 2000 UNIT 1 capsule Orally Once a day Active Vitamin C 500 MG 1 tablet Orally Once a day Active Nystatin 986545 UNIT/GM 1 to affected area External ly Twice a day as needed for 90 days Jan, Active Amoxicillin 500 MG 4 capsules 30-60 min prior t o dental procedure Orally Daily for 1 days Feb, Not-Taking Lisinopril-Hydrochlorothiazide 10-12.5 MG 1 tablet Orally Once a day Active Acetaminophen-Codeine #4 300-60 MG 1 tablet as needed Orally every 6 hrs prn for pain mdd4 #45 tabs shoild last 30 days Apr, Active Magnesium 400 MG 1 tablet with a meal Orally Once a day Active PROCEDURES No Information RESULTS No Results REASON FOR VISIT No Information MEDICAL (GENERAL) HISTORY Type Description Date Medical [...] - [facility] in p [place]-last imaging [facility] Medical History DeQuervains tenosynovitis Medical History H/o [...] to infection. Follows with Dr. Paul in [place] Medical History Ppumlonary embolism, unprovoked - 2018; [...] 2006 2006 Surgical History ESWL x 5 8869-0806 Surgical History Hernia repair with mesh Dr Virgen - [facility] srivastava 12/21/2010 Surgical History L ureteroscopy/laser lithotripsy 2011 Surgical History Revision for MRSA wound infection and re moval of mesh 11/21/2011 Surgical History redo of mesh - [place] 01/2012 Surgical History ESWL- [place] 01/01 Surgical [...] Valve replacement 08/2017 Hospitalization History PE at [facility] 09/21/2018 Goals Section No Information Health Concerns No Information MEDICAL EQUIPMENT No Information MENTAL STATUS No Information FUNCTIONAL STATUS No Information ASSESSMENTS No Information PLAN OF TREATMENT Medication Medication Name Sig Start Date Stop Date Gabapentin 600 MG 1 tablet Orally three times a day Feb, Lisinopril-Hydrochlorothiazide 10-12.5 MG 1 tablet Orally Once a day Acetaminophen-Codeine #4 300-60 MG 1 tablet as needed Orally every 6 hrs prn for pain mdd4 #45 tabs shoild last 30 days Apr, Ropinirole HCl 5 MG 1 tab Orally before bedtime Oxybutynin Chloride ER 10 MG 1 tablet Orally Once a day Jun, Eliquis 2.5 MG 1 tablet Orally bid Apr, Cymbalta 60 MG 1 capsule Orally Once a day Jul, Metoprolol Tartrate 25 MG 1 tablet with food Orally Twice a day Next Appt Details Provider Name:Gaetano Quezada, 2020-06-26 03:0 0:00 PM, [address] [place], [address] Provider Name:Merlin Marsh, 02:45:00 PM, [address], [place], [address], Provider Name:Leia Valdes, 2020-08-10 09 :30:00 AM, [address] [place], [address], Provider Name:Rufina Chong, 2020-08-10 01:00:00 PM, [address] [place], [address], Insurance Providers Payer Name Payer Address Payer Phone Insured Name Patient Relati onship to Insured Coverage Start Date Coverage End Date MEDICAID [employer] [address] [facility] [id number] [address] [facility] [id number] [facility] [address] [address]
--- OUTSIDE RECORDS SUMMARY | 2020-06-29 23:20 | CCD ---
Author Author [facility] Organization [facility] Address Unknown Phone Unavailable Care Team Providers Care Ceramic Engineering Professor Name Role Phone Rufina Chong Unavailable PROBLEMS Type Condition ICD9-CM Code [id number] Code Onset Dates Condition S tatus SNOMED Code Notes Problem Sleep apnea, unspecified G47.30 Active 6628769 6 Problem Anemia in other chronic diseases classified elsewhere D63.8 Active 473211014 Problem Morbid (severe) obesity due to excess calories E66 .01 Active 932935997 Problem Kidney stones N20.0 Active 07016247 Problem Bariatric surgery status Z98.84 Active 1850584 06 Problem Vitamin D deficiency E55.9 Active 35274818 Problem Essential hypertension I10 Active 47886428 Problem Drug-induced polyneuropathy G62.0 Active 7339 009 Problem Acute right-sided low back pain with right-sided sciatica M54.41 Active 821187229 Problem History of MRSA infection Z86.14 Active 296648 000 Problem S/P AVR (aortic valve replacement) Z95.2 Activ e 0206469787872 Problem Left-sided low back pain wit h left-sided sciatica, unspecified chronicity M54.42 Active 559915648 Problem Hx of pulmonary embolus Z86.711 Active 83722273 7 Problem Seasonal allergic rhinitis, unspecified trigger J3 0.2 Active 507172168 Problem Gastroesophageal reflux disease, esophagitis pre sence not specified K21.9 Active 301408802 Problem Microscopic hematuria R31.29 Active 777177872 Problem Other chronic pain G89.29 Active 48954455 Problem Body mass index (BMI) 60.0-69.9, adult Z68.44 A ctive 861185183 Problem Mixed stress and urge urinary incontinence N39.46 Active 413505900 Problem Post-traumatic stress disorder, unspecified F43.10 Active 07749488 Problem Generalized anxiety disorder F41.1 Active 218 16018 Problem Spondylosis without myelopathy or radiculopathy, lumbosacral region M47.817 Active 96214242 Problem Migraine without status migr ainosus, not intractable, unspecified migraine type G43.909 Active 88105755 Problem Spondylosis without myelopathy or radiculopathy, lumbar region M47.816 Active 441997600 Problem RLS (restless legs syndrome) G25.81 Active 329 57960 Problem Gouty arthritis of toe of right foot M10.9 Act jez 156756863 Problem Major depressive disorder, recurrent, moderate F33 .1 Active 637889689 Problem Lumbago with sciatica, right side M54.41 Active 956396369 Problem Intestinal malabsorption, unspecified type K90.9 Active 909340208 Problem Urinary incontinence R32 Active 769579436 ALLERGIES Allergen (clinical drug ingredient) Drug/Non Drug Allergy do cumented on EMR Reaction Allergy Type Onset Date Status tetracycline Tetracycline HCl(NDC Code:[address]-12) Rash Drug Allergy Active penicillin V Penicillin V Potassium(NDC Code:[address]-05) Rash Drug Allergy Active Levaquin IV pruritis, redness Drug Allergy Ac tive duracef Rash Non Drug Allergy Active Myrbetriq itching Drug Allergy Active fentanyl Fentanyl(NDC Code:[address]-16) itching "I want to rip my skin off" Drug Allergy Active vancomycin Vancomycin HCl(NDC Code:[address]-15) i tching "I want to rip my skin off" Drug Allergy Active Adhesive Bandages rash,blisters Drug Allergy Ac tive sulfamethoxazole / trimethoprim Bactrim(NDC Code:[address]-22) Anaphylaxis Drug Allergy Active erythromycin Erythromycin(NDC Code:[address]-81) Rash Drug All ergy Active morphine Morphine Sulfate(NDC Code:[address]-64) IV = BURNING AND ITCHING BUT CAN TAKE WITH BENADRYL Drug Allergy Active ENCOUNTERS from 1955 to 2020-06-12 Encounter Location Date Provider Diagnosis [address] [address] May, Rufina Chong IMMUNIZATIONS Vaccine Route Administration Date Status Influenza [...] Education Language: Question Answer Notes Languages spoken: Faroese Mandaen: Question Answer Notes Mandaen 33 None Drug and Alcohol Question Answer [...] Orally Once a day May, Not-Taking Nystatin 414899 UNIT/GM 1 to affected area External ly [...] Information RESULTS No Results REASON FOR VISIT Labs normal / preop complete MEDICAL (GENERAL) HISTORY Type Description Date Medical [...] - NCOG in p ast-last imaging at [facility] Medical History DeQuervains tenosynovitis Medical History H/o [...] to infection. Follows with Dr. Paul in [place] Medical History Ppumlonary embolism, unprovoked - 2018; Eliquis Medical History Polynueuropathy in lower ext remities due to prolonged course of Zyvox (9 months) Medical History ASCVD risk 7.6% in 05/2020 Medical History Overactive bladder Surgical History Tonsillectomy and Adenoidectomy 1967 Surgical History Bilateral bunionectomy 1968, 1973 Surgical History 1986 Surgical History L wrist ganglionectomy 1988 Surgical History L breast biopsy Surgical History Total hysterectomy 1997 Surgical History R knee arthroscopy 2003 Surgical History Bilateral knee replacement 2007 Surgical History Gastric Bypass-Dr Hidalgo 2006 2006 Surgical History ESWL x 5 4143-9661 Surgical History Hernia repair with mesh Dr Virgen - Kasey srivastava 12/21/2010 Surgical History L ureteroscopy/laser lithotripsy 2011 Surgical History Revision for MRSA wound infection and re moval of mesh 11/21/2011 Surgical History redo of mesh - [place] 01/2012 Surgical History ESWL- [place] 01/01 Surgical [...] Valve replacement 08/2017 Hospitalization History PE at [facility] 09/21/2018 Goals Section No Information Health Concerns [...] 1 capsule Orally Once a day Jul, Next Appt Details Provider Name:Gaetano Quezada, 2020-06-26 03:0 0:00 PM, [address] [place], [address] Provider Name:Merlin Marsh, 02:45:00 PM, [address], [place], [address], Provider Name:Leia Valdes, 2020-08-10 09 :30:00 AM, [address] [place], [address], Provider Name:Rufina Chong, 2020-08-10 01:00:00 PM, [address] [place], [address], Insurance Providers Payer Name Payer Address Payer Phone Insured Name Patient Relati onship to Insured Coverage Start Date Coverage End Date MEDICAID [employer] [address] [facility] [address] [address] [facility] [id number] [facility] [address] [address]NEY STARR
--- OUTSIDE RECORDS SUMMARY | 2020-06-29 23:20 | CCD ---
Author Author [facility] Organization [facility] Address Unknown Phone Unavailable Care Team Providers Care Government Guard Name Role Phone Rufina Chong Unavailable PROBLEMS Type Condition ICD9-CM Code [id number] Code Onset Dates Condition S tatus SNOMED Code Notes Problem Sleep apnea, unspecified G47.30 Active 2822709 6 Problem Anemia in other chronic diseases classified elsewhere D63.8 Active 181021044 Problem Morbid (severe) obesity due to excess calories E66 .01 Active 340966875 Problem Kidney stones N20.0 Active 26442248 Problem Bariatric surgery status Z98.84 Active 9640618 06 Problem Vitamin D deficiency E55.9 Active 36365893 Problem Essential hypertension I10 Active 65127004 Problem Drug-induced polyneuropathy G62.0 Active 7339 009 Problem Acute right-sided low back pain with right-sided sciatica M54.41 Active 196348424 Problem History of MRSA infection Z86.14 Active 948693 000 Problem S/P AVR (aortic valve replacement) Z95.2 Activ e 6867434003605 Problem Left-sided low back pain wit h left-sided sciatica, unspecified chronicity M54.42 Active 637383478 Problem Hx of pulmonary embolus Z86.711 Active 94407067 7 Problem Seasonal allergic rhinitis, unspecified trigger J3 0.2 Active 604803118 Problem Gastroesophageal reflux disease, esophagitis pre sence not specified K21.9 Active 886069069 Problem Microscopic hematuria R31.29 Active 650827055 Problem Other chronic pain G89.29 Active 88970630 Problem Body mass index (BMI) 60.0-69.9, adult Z68.44 A ctive 538572690 Problem Mixed stress and urge urinary incontinence N39.46 Active 546998269 Problem Post-traumatic stress disorder, unspecified F43.10 Active 97892419 Problem Generalized anxiety disorder F41.1 Active 218 39398 Problem Spondylosis without myelopathy or radiculopathy, lumbosacral region M47.817 Active 26905986 Problem Migraine without status migr ainosus, not intractable, unspecified migraine type G43.909 Active 22619387 Problem Spondylosis without myelopathy or radiculopathy, lumbar region M47.816 Active 047933255 Problem RLS (restless legs syndrome) G25.81 Active 329 43644 Problem Gouty arthritis of toe of right foot M10.9 Act jez 190013368 Problem Major depressive disorder, recurrent, moderate F33 .1 Active 201998367 Problem Lumbago with sciatica, right side M54.41 Active 926000693 Problem Intestinal malabsorption, unspecified type K90.9 Active 872800388 Problem Urinary incontinence R32 Active 513352092 ALLERGIES Allergen (clinical drug ingredient) Drug/Non Drug Allergy do cumented on EMR Reaction Allergy Type Onset Date Status tetracycline Tetracycline HCl(NDC Code:[address]-50) Rash Drug Allergy Active penicillin V Penicillin V Potassium(NDC Code:[address]-04) Rash Drug Allergy Active morphine Morphine Sulfate(NDC Code:[address]-66) IV = BURNING AND ITCHING BUT CAN TAKE WITH BENADRYL Drug Allergy Active duracef Rash Non Drug Allergy Active erythromycin Erythromycin(NDC Code:[address]-47) Rash Drug All ergy Active fentanyl Fentanyl(NDC Code:[address]-33) itching "I want to rip my skin off" Drug Allergy Active vancomycin Vancomycin HCl(NDC Code:[address]-18) i tching "I want to rip my skin off" Drug Allergy Active Adhesive Bandages rash,blisters Drug Allergy Ac tive Levaquin IV pruritis, redness Drug Allergy Ac tive sulfamethoxazole / trimethoprim Bactrim(NDC Code:[address]-16) Anaphylaxis Drug Allergy Active ENCOUNTERS from 1955 to 2020-06-08 Encounter Location Date Provider Diagnosis [address] [address] May, Rufina Chong IMMUNIZATIONS Vaccine Route Administration Date Status Influenza (18 yrs & older) Flublok IM Intramuscular Feb 28, 2020 Administered Influenza (18 yrs & older) Flublok IM Intramuscular Feb 13, 2018 Administered Pneumococcal 0.5mL (Prevnar 13) IM Intramuscular Feb 13, 2018 Administered Influenza (6mo & up) Fluzone IM Intramuscular Jan 30, 2017 Ad ministered Pneumococcal Adult 0.5mL (Pneumovax 23) Unknown August [...] Education Language: Question Answer Notes Languages spoken: Haitian Pentecostal: Question Answer Notes Pentecostal 33 None Drug and Alcohol Question Answer [...] Notes Start Da te End Date Status Ropinirole HCl 5 MG 1 tab Orally before bedtime Active Eliquis 2.5 MG 1 tablet Orally bid Apr, Active Cymbalta 30 MG 1 capsule Orally Daily Jun, Active Nystatin 785230 UNIT/GM 1 to affected area External ly Twice a day as needed for 90 days Jan, Active Amoxicillin 500 MG 4 capsules 30-60 min prior t o dental procedure Orally Daily for 1 days Feb, Not-Taking Metoprolol Tartrate 25 MG 1 tablet with food Orally Twice a day for 9 0 Active Tylenol with Codeine #4 1 tablet orally every 6 hours as needed MDD 4 Not-Taking Triamcinolone Acetonide 0.1 % 1 application Externally Twice a d ay Aug, Active Vitamin D3 2000 UNIT 1 capsule Orally Once a day Active Gabapentin 600 MG 1 tablet Orally three times a day Feb Active Vitamin C 500 MG 1 tablet Orally Once a day Active Calcium 500 + D3 500-200 MG-UNIT 1 tablet with a meal Orally Once a d ay Active Lisinopril-Hydrochlorothiazide 10-12.5 MG 1 tablet Orally Once a day Active Cymbalta 60 MG 1 capsule Orally Once a day Jul, Active Vitamin B-12 2500 MCG 1 tablet Sublingual Daily Active Tab-A-Tyler - 1 tablet Orally Once a day Active Tylenol Arthritis Pain 650 mg 2 tablets oral every bedtime Active Acetaminophen-Codeine #4 300-60 MG 1 tablet as needed Orally every 6 hrs prn for pain mdd4 #45 tabs shoild last 30 days for 30 Days Apr, Active Magnesium 400 MG 1 tablet with a meal Orally Once a day Active Myrbetriq 50 MG 1 tablet Orally Once a day May, Active PROCEDURES No Information RESULTS No Results REASON FOR VISIT ekg/pre-op MEDICAL (GENERAL) HISTORY Type Description Date Medical [...] - NCOG in p ast-last imaging at [facility] Medical History DeQuervains tenosynovitis Medical History [...] to infection. Follows with Dr. Paul in [place] Medical History Ppumlonary embolism, unprovoked - 2018; [...] 2006 2006 Surgical History ESWL x 5 5709-3724 Surgical History Hernia repair with mesh Dr Promise Robertson 12/21/2010 Surgical History L ureteroscopy/laser lithotripsy 2011 Surgical History Revision for MRSA wound infection and re moval of mesh 11/21/2011 Surgical History redo of mesh - [place] 01/2012 Surgical History ESWL- [place] 01/01 Surgical [...] Valve replacement 08/2017 Hospitalization History PE at [facility] 09/21/2018 Goals Section No Information Health Concerns No Information MEDICAL EQUIPMENT No Information MENTAL STATUS No Information FUNCTIONAL STATUS No Information ASSESSMENTS No Information PLAN OF TREATMENT Medication Medication Name Sig Start Date Stop Date Metoprolol Tartrate 25 MG 1 tablet with food Orally Twice a day for 90 Next Appt Details Provider Name:Leia Valdes, 2020-06-10 10 :00:00 AM, [address] [place], [address], Provider Name:Gaetano Quezada, 2020-06-11 08:0 0:00 AM, [address] [place], [address] Provider Name:Rufina Chong, 2020-06-11 09:00:00 AM, [address] [place], [address], Provider Name:Rufina Reddy Arlette, 2020-06-11 01:45:00 PM, [address] [place], [address], Provider Name:Rufina Reddy Arlette, 2020-07-06 10:30:00 AM, [address] [place], [address], Provider Name:Merlin Marsh, 02:45:00 PM, [address], [place], [address], Insurance Providers Payer Name Payer Address Payer Phone Insured Name Patient Relati onship to Insured Coverage Start Date Coverage End Date MEDICAID [employer] [address] [facility] [address] [address] [facility] [address] [facility] [address] [address] STARR
--- OUTSIDE RECORDS SUMMARY | 2020-06-29 23:20 | CCD ---
Author Author [facility] Organization [facility] Address Unknown Phone Unavailable Care Team Providers Care Audio Specialist Name Role Phone Leia Valdes Unavailable PROBLEMS Type Condition ICD9-CM Code NPU55-UZ Code Onset Dates Condition S tatus W/U Status Risk SNOMED Code Notes Problem Sleep apnea, unspecified G47.30 Active confirmed 86222763 Problem Anemia in other chronic diseases classified elsewhere D63.8 Active confirmed 663005693 Problem Morbid (severe) obesity due to excess calories E66 .01 Active confirmed 298705642 Problem Kidney stones N20.0 Active confirmed 895411 07 Problem Bariatric surgery status Z98.84 Active confirmed 031308441 Problem Vitamin D deficiency E55.9 Active confirmed 80497699 Problem Essential hypertension I10 Active confirmed 07269830 Problem Drug-induced polyneuropathy G62.0 Active confirmed 9491675 Problem Acute right-sided low back pain with right-sided sciatica M54.41 Active confirmed 969233716 Problem History of MRSA infection Z86.14 Active confirmed 400564637 Problem S/P AVR (aortic valve replacement) Z95.2 Activ e confirmed 7783439461487 Problem Left-sided low back pain wit h left-sided sciatica, unspecified chronicity M54.42 Active confirmed 641362906 Problem Hx of pulmonary embolus Z86.711 Active confirmed 654854412 Problem Seasonal allergic rhinitis, unspecified trigger J3 0.2 Active confirmed 035745776 Problem Gastroesophageal reflux disease, esophagitis pre sence not specified K21.9 Active confirmed 756433510 Problem Microscopic hematuria R31.29 Active confirmed 059468551 Problem Other chronic pain G89.29 Active confirmed 8 2743907 Problem Body mass index (BMI) 60.0-69.9, adult Z68.44 A ctive confirmed 339946203 Problem Mixed stress and urge urinary incontinence N39.46 Active confirmed 420278830 Problem Post-traumatic stress disorder, unspecified F43.10 Active confirmed 92079298 Problem Generalized anxiety disorder F41.1 Active confirme d 72651944 Problem Spondylosis without myelopathy or radiculopathy, lumbosacral region M47.817 Active confirmed 66778097 Problem Migraine without status migr ainosus, not intractable, unspecified migraine type G43.909 Active confirmed 95724743 Problem Spondylosis without myelopathy or radiculopathy, lumbar region M47.816 Active confirmed 612482899 Problem RLS (restless legs syndrome) G25.81 Active confirme d 67229618 Problem Gouty arthritis of toe of right foot M10.9 Act jez confirmed 349017833 Problem Major depressive disorder, recurrent, moderate F33 .1 Active confirmed 190295059 Problem Lumbago with sciatica, right side M54.41 Active confirmed 260912035 Problem Intestinal malabsorption, unspecified type K90.9 Active confirmed 094967350 Problem Urinary incontinence R32 Active confirmed 833397424 ALLERGIES Allergen (clinical drug ingredient) Drug/Non Drug Allergy do cumented on EMR Reaction Allergy Type Onset Date Status tetracycline Tetracycline HCl(NDC Code:[address]-46) Rash Drug Allergy Active penicillin V Penicillin V Potassium(NDC Code:[address]-62) Rash Drug Allergy Active Levaquin IV pruritis, redness Drug Allergy Ac tive duracef Rash Non Drug Allergy Active Myrbetriq itching Drug Allergy Active fentanyl Fentanyl(NDC Code:[address]-47) itching "I want to rip my skin off" Drug Allergy Active vancomycin Vancomycin HCl(NDC Code:[address]-30) i tching "I want to rip my skin off" Drug Allergy Active Adhesive Bandages rash,blisters Drug Allergy Ac tive sulfamethoxazole / trimethoprim Bactrim(NDC Code:[address]-54) Anaphylaxis Drug Allergy Active erythromycin Erythromycin(NDC Code:[address]-20) Rash Drug All ergy Active morphine Morphine Sulfate(NDC Code:[address]-31) IV = BURNING AND ITCHING BUT CAN TAKE WITH BENADRYL Drug Allergy Active ENCOUNTERS from 1955 to 2020-06-17 Encounter Location Date Provider Diagnosis [facility] [address] [place] [address] May, Leia Valdes Other chronic pain G89.29 ; Breast hyper trophy N62 and Spondylosis without myelopathy or radiculopathy, lumbar region M47.816 IMMUNIZATIONS Vaccine Route Administration Date Status Influenza [...] Education Language: Question Answer Notes Languages spoken: Portuguese Roman Catholic: Question Answer Notes Roman Catholic 33 None Drug and Alcohol Question Answer Notes Total Score: 0 Interpretation: No problems reported BMI Care Goal Follow-Up Question Answer Notes Above Normal BMI Follow-Up Dietary management educatio n, guidance, and counseling Tobacco Use: Question Answer Notes Are you a: never smoker REASON FOR REFERRAL No Information VITAL SIGNS Weight 403.2 lbs May, Height 64 in May, BMI 69.20 kg/m2 May, Heart Rate 66 /min May, Respiratory Rate 21 /min May, Temperature 97.4 degrees Fahrenheit May, Oximetry 97 May, Blood pressure systolic 127 mm Hg May, Blood pressure diastolic 70 [...] tablet Orally Once a day Active Nystatin 729350 UNIT/GM 1 to affected area External ly [...] meal Orally Once a day Active PROCEDURES from 1955 to 2020-06-17 Procedure Date Ordered Result Body Site Pain Procedure Log 2020-06-11 N/A RESULTS No Results REASON FOR VISIT Post bilateral therapeutic lumbar facet block L4-L5, L5-S1 MEDICAL (GENERAL) HISTORY Type Description Date Medical [...] - NCOG in p ast-last imaging at [facility] Medical History DeQuervains tenosynovitis Medical History [...] to infection. Follows with Dr. Paul in [place] Medical History Ppumlonary embolism, unprovoked - 2018; [...] 2006 2006 Surgical History ESWL x 5 0954-3563 Surgical History Hernia repair with mesh Dr Virgen - Kasey srivastava 12/21/2010 Surgical History L ureteroscopy/laser lithotripsy 2011 Surgical History Revision for MRSA wound infection and re moval of mesh 11/21/2011 Surgical History redo of mesh - [place] 01/2012 Surgical History ESWL- [place] 01/01 Surgical [...] Valve replacement 08/2017 Hospitalization History PE at [facility] 09/21/2018 Goals Section No Information Health Concerns No Information MEDICAL EQUIPMENT No Information MENTAL STATUS No Information FUNCTIONAL STATUS No Information ASSESSMENTS Encounter Date Diagnosis Assessment Notes Treatment Notes Treatm ent Clinical Notes May, Other chronic pain (ICD-10 - G89.29) May increase T4 to max 3 day.May need an early refill because of this.Continue Colace everyday. May, Breast hypertrophy (ICD-10 - N62) May, Spondylosis without myelopat hy or radiculopathy, lumbar region (ICD-10 - M47.816) PLAN OF TREATMENT Medication Medication Name Sig [...] tablet with food Orally Twice a day Treatment Notes Assessment Notes Clinical Notes Other chronic pain May increase T4 to max 3 day .May need an early refill because of this.Continue Colace everyday. Next Appt Details 2 Months Reason:med mgmnt/f/u Dr Dileep alarcon Provider Name:Gaetano Quezada, 2020-06-26 03:0 0:00 PM, [address] [place], [address] Provider Name:Merlin Marsh, 02:45:00 PM, [address] [facility] [place], [address], Provider Name:Leia Valdes, 2020-08-10 09 :30:00 AM, [address] [place], [address], Provider Name:Rufina Chong, 2020-08-10 01:00:00 PM, [address] [place], [address], Follow Up:2 Monthsmed mgmnt/f/u Dr Falk referral Insurance Providers Payer Name Payer Address Payer Phone Insured Name Patient Relati onship to Insured Coverage Start Date Coverage End Date MEDICAID [employer] [address] [facility] [id number] [phone] [address] [facility] [address] [facility] [address] [address]
--- OUTSIDE RECORDS SUMMARY | 2020-06-29 23:20 | CCD ---
Author Author [facility] Organization [facility] Address Unknown Phone Unavailable Care Team Providers Care Shelter Monitor Name Role Phone Rufina Chong Unavailable PROBLEMS Type Condition ICD9-CM Code VRM57-TU Code Onset Dates Condition S tatus W/U Status Risk SNOMED Code Notes Problem Sleep apnea, unspecified G47.30 Active confirmed 49612817 Problem Anemia in other chronic diseases classified elsewhere D63.8 Active confirmed 033567065 Problem Morbid (severe) obesity due to excess calories E66 .01 Active confirmed 896237702 Problem Kidney stones N20.0 Active confirmed 149671 07 Problem Bariatric surgery status Z98.84 Active confirmed 570207956 Problem Vitamin D deficiency E55.9 Active confirmed 63531256 Problem Essential hypertension I10 Active confirmed 52365655 Problem Drug-induced polyneuropathy G62.0 Active confirmed 2997811 Problem Acute right-sided low back pain with right-sided sciatica M54.41 Active confirmed 705994113 Problem History of MRSA infection Z86.14 Active confirmed 623322764 Problem S/P AVR (aortic valve replacement) Z95.2 Activ e confirmed 6251824652554 Problem Left-sided low back pain wit h left-sided sciatica, unspecified chronicity M54.42 Active confirmed 212479005 Problem Hx of pulmonary embolus Z86.711 Active confirmed 825584331 Problem Seasonal allergic rhinitis, unspecified trigger J3 0.2 Active confirmed 132709514 Problem Gastroesophageal reflux disease, esophagitis pre sence not specified K21.9 Active confirmed 952123843 Problem Microscopic hematuria R31.29 Active confirmed 592999035 Problem Other chronic pain G89.29 Active confirmed 8 6913994 Problem Body mass index (BMI) 60.0-69.9, adult Z68.44 A ctive confirmed 554887684 Problem Mixed stress and urge urinary incontinence N39.46 Active confirmed 301372847 Problem Post-traumatic stress disorder, unspecified F43.10 Active confirmed 56285140 Problem Generalized anxiety disorder F41.1 Active confirme d 45591149 Problem Spondylosis without myelopathy or radiculopathy, lumbosacral region M47.817 Active confirmed 41860298 Problem Migraine without status migr ainosus, not intractable, unspecified migraine type G43.909 Active confirmed 08448280 Problem Spondylosis without myelopathy or radiculopathy, lumbar region M47.816 Active confirmed 372504698 Problem RLS (restless legs syndrome) G25.81 Active confirme d 84850516 Problem Gouty arthritis of toe of right foot M10.9 Act jez confirmed 036630117 Problem Major depressive disorder, recurrent, moderate F33 .1 Active confirmed 559305149 Problem Lumbago with sciatica, right side M54.41 Active confirmed 886843238 Problem Intestinal malabsorption, unspecified type K90.9 Active confirmed 767300110 Problem Urinary incontinence R32 Active confirmed 605501281 ALLERGIES Allergen (clinical drug ingredient) Drug/Non Drug Allergy do cumented on EMR Reaction Allergy Type Onset Date Status tetracycline Tetracycline HCl(NDC Code:[address]-48) Rash Drug Allergy Active penicillin V Penicillin V Potassium(NDC Code:[address]-77) Rash Drug Allergy Active Levaquin IV pruritis, redness Drug Allergy Ac tive duracef Rash Non Drug Allergy Active Myrbetriq itching Drug Allergy Active fentanyl Fentanyl(NDC Code:[address]-34) itching "I want to rip my skin off" Drug Allergy Active vancomycin Vancomycin HCl(NDC Code:[address]-70) i tching "I want to rip my skin off" Drug Allergy Active Adhesive Bandages rash,blisters Drug Allergy Ac tive sulfamethoxazole / trimethoprim Bactrim(NDC Code:[address]-47) Anaphylaxis Drug Allergy Active erythromycin Erythromycin(NDC Code:[address]-82) Rash Drug All ergy Active morphine Morphine Sulfate(NDC Code:[address]-30) IV = BURNING AND ITCHING BUT CAN TAKE WITH BENADRYL Drug Allergy Active ENCOUNTERS from 1955 to 2020-06-20 Encounter Location Date Provider Diagnosis [facility] Sid [address] [place] [id number] Jun, Rufina Chong IMMUNIZATIONS Vaccine Route Administration Date [...] Education Language: Question Answer Notes Languages spoken: Macedonian Pentecostalism: Question Answer Notes Pentecostalism 33 None Drug and Alcohol Question Answer [...] tablet Orally Once a day Active Nystatin 706271 UNIT/GM 1 to affected area External ly [...] Information RESULTS No Results REASON FOR VISIT Paperwork ? MEDICAL (GENERAL) HISTORY Type Description Date Medical [...] - [facility]COG in p ast-last imaging at [facility] Medical History DeQuervains tenosynovitis Medical History [...] to infection. Follows with Dr. Paul in [place] Medical History Ppumlonary embolism, unprovoked - 2018; [...] 2006 2006 Surgical History ESWL x 5 [id number] Surgical History Hernia repair with mesh Dr Virgen - Kasey srivastava 12/21/2010 Surgical History L ureteroscopy/laser lithotripsy 2011 Surgical History Revision for MRSA wound infection and re moval of mesh 11/21/2011 Surgical History redo of mesh - [place] 01/2012 Surgical History ESWL- Maximo 01/01 Surgical [...] Valve replacement 08/2017 Hospitalization History PE at [facility] 09/21/2018 Goals Section No Information Health Concerns [...] Twice a day Next Appt Details Provider Name:Rufina Chong, 2020-06-22 01:30:00 PM, [facility] [place], [address], Provider Name:Gaetano Quezada, 2020-06-26 03:0 0:00 PM, [address] [place], [address] Provider Name:Merlin Marsh, 02:45:00 PM, [address] [place], [address], Provider Name:Leia Valdes, 2020-08-10 09 :30:00 AM, [address] [place], [address], Provider Name:Rufina Srivastava Kraigdavid, 2020-08-10 01:00:00 PM, [address] [place] [address], [address], Insurance Providers Payer Name Payer Address Payer Phone Insured Name Patient Relati onship to Insured Coverage Start Date Coverage End Date [facility] [address] [facility] [address] [address] [address]ARR MEDICAID [employer] [address] [facility] [id number] [address]
--- OUTSIDE RECORDS SUMMARY | 2020-06-29 23:21 | CCD ---
Author Author [facility] Organization [facility] Address Unknown Phone Unavailable Care Team Providers Care Documentation Manager Name Role Phone Rufina Chong Unavailable PROBLEMS Type Condition ICD9-CM Code ZXT70-XC Code Onset Dates Condition S tatus SNOMED Code Notes Problem Low back pain M54.5 Active 429171767 Problem Essential hypertension I10 Active 71469493 Problem Kidney stones N20.0 Active 22376314 Problem RLS (restless legs syndrome) G25.81 Active 329 46608 Problem Vitamin D deficiency E55.9 Active 78893124 Problem Migraine without status migr ainosus, not intractable, unspecified migraine type G43.909 Active 29480934 Problem Depression with anxiety F41.8 Active 11428906 6 Problem Drug-induced polyneuropathy G62.0 Active 7339 009 Problem Anemia in other chronic diseases classified elsewhere D63.8 Active 665633549 Problem Locking of left knee M23.92 Active 44935225365 340282 Problem Morbid (severe) obesity due to excess calories E66 .01 Active 604334858 Problem Bariatric surgery status Z98.84 Active 7734324 06 Problem Other specified polyneuropathies G62.89 Active 20019512 Problem Seasonal allergic rhinitis, unspecified trigger J3 0.2 Active 049250084 Problem S/P AVR (aortic valve replacement) Z95.2 Activ e 1167051623146 Problem Microscopic hematuria R31.29 Active 658085326 Problem Hx of pulmonary embolus Z86.711 Active 18016262 7 Problem Body mass index (BMI) 60.0-69.9, adult Z68.44 A ctive 885907918 Problem History of MRSA infection Z86.14 Active 446161 000 Problem Gastroesophageal reflux disease, esophagitis pre sence not specified K21.9 Active 406901483 Problem Acute right-sided low back pain with right-sided sciatica M54.41 Active 680070164 Problem Migraine, unspecified, not intractable, without status migrainosus G43.909 Active 48070647 Problem Other chronic pain G89.29 Active 17681719 Problem Sleep apnea, unspecified G47.30 Active 0107745 6 Problem Chronic sciatica of right side M54.31 Active 3 98583149 Problem Mixed stress and urge urinary incontinence N39.46 Active 601797049 Problem Unspecified urinary incontinence R32 Active 74488511 Problem Major depressive disorder, recurrent, moderate F33 .1 Active 932775296 Problem Left-sided low back pain wit h left-sided sciatica, unspecified chronicity M54.42 Active 437666497 Problem Lumbago with sciatica, right side M54.41 Active 668304975 Problem Gouty arthritis of toe of right foot M10.9 Act jez 183861788 Problem Abnormal mammogram R92.8 Active 838234871 Problem Full incontinence of feces R15.9 Active 49723 9449655825 Problem Fecal urgency R15.2 Active 60246542 Problem Post-traumatic stress disorder, unspecified F43.10 Active 49710639 Problem Generalized anxiety disorder F41.1 Active 218 17530 ALLERGIES Allergen (clinical drug ingredient) Drug/Non Drug Allergy do cumented on EMR Reaction Allergy Type Onset Date Status tetracycline Tetracycline HCl(NDC Code:[address]-82) Rash Drug Allergy Active penicillin V Penicillin V Potassium(NDC Code:[address]-27) Rash Drug Allergy Active morphine Morphine Sulfate(NDC Code:[address]-79) IV = BURNING AND ITCHING BUT CAN TAKE WITH BENADRYL Drug Allergy Active duracef Rash Non Drug Allergy Active erythromycin Erythromycin(NDC Code:[address]-01) Rash Drug All ergy Active fentanyl Fentanyl(NDC Code:[address]-81) itching "I want to rip my skin off" Drug Allergy Active vancomycin Vancomycin HCl(NDC Code:[address]-37) i tching "I want to rip my skin off" Drug Allergy Active Adhesive Bandages rash,blisters Drug Allergy Ac tive Levaquin IV pruritis, redness Drug Allergy Ac tive sulfamethoxazole / trimethoprim Bactrim([facility][NOTE 3] Code:[address]-65) Anaphylaxis Drug Allergy Active ENCOUNTERS from 1955 to 2020-05-06 Encounter Location Date Provider Diagnosis [facility] Sid [facility] [place] [address] Apr, Rufina Chong IMMUNIZATIONS Vaccine Route Administration Date [...] Language: Question Answer Notes Languages spoken: Haitian Mormonism: Question Answer Notes Mormonism 33 None Drug and Alcohol Question Answer [...] Notes Start Da te End Date Status Vitamin C 500 MG 1 tablet Orally Once a day Active Eliquis 0.5 tab (5mg) orally Twice a day Not-Taking Metoprolol Tartrate 25 MG 1 tablet with food Orally Twice a day Active Magnesium 400 MG 1 tablet with a meal Orally Once a day Active Acetaminophen 325 MG 2 tablet as needed Orally every 6 hrs Not-Taking Tylenol Arthritis Pain 650 mg 2 tablets oral every bedtime Active Folic Acid 1 MG 1 tablet Orally Once a day for 90 Not-Taking Lisinopril-Hydrochlorothiazide 10-12.5 MG 1 tablet Orally Once a day Active Amoxicillin 500 MG 4 capsules 30-60 min prior t o dental procedure Orally Daily for 1 days Feb, Not-Taking Eliquis 2.5 MG 1 tablet Orally bid for 90 day(s) Apr, 2 020 Active Tab-A-Tyler - 1 tablet Orally Once a day Active Gabapentin 600 MG 1 tablet Orally three times a day Feb Active Nystatin 843258 UNIT/GM 1 to affected area External ly Twice a day as needed for 90 days Jan, Active Cymbalta 30 MG 1 capsule Orally Daily Jun, Active Ropinirole HCl 5 MG 1 tab Orally before bedtime for 90 day(s) Active Wellbutrin XL 150 MG 1 tablet in the morning Orally Once a day Feb, Active Vitamin B-12 2500 MCG 1 tablet Sublingual Daily Active Vitamin D3 2000 UNIT 1 capsule Orally Once a day Active Triamcinolone Acetonide 0.1 % 1 application Externally Twice a d ay Aug, Active Tylenol with Codeine #4 1 tablet orally every 6 hours as needed MDD 4 Active Calcium 500 + D3 500-200 MG-UNIT 1 tablet with a meal Orally Once a d ay Active Cymbalta 60 MG 1 capsule Orally Once a day Jul, Active PROCEDURES No Information RESULTS No Results REASON FOR VISIT no show MEDICAL (GENERAL) HISTORY Type Description Date Medical [...] chronic di sease Medical History Chronic back kwmae - [facility]COG in p ast-last imaging at [facility] Medical History DeQuervains tenosynovitis Medical [...] to infection. Follows with Dr. Paul in [place] Medical History Ppumlonary embolism, unprovoked - 2018; Eliquis Medical History Polynueuropathy in lower ext remities due to prolonged course of Zyvox (9 months) Surgical History Tonsillectomy and Adenoidectomy 1966 Surgical History Bilateral bunionectomy 1968, 1973 Surgical History 1986 Surgical History L wrist ganglionectomy 1988 Surgical History L breast biopsy Surgical History Total hysterectomy 1997 Surgical History R knee arthroscopy 2003 Surgical History Bilateral knee replacement 2007 Surgical History Gastric Bypass-Dr Hidalgo 2006 2006 Surgical History ESWL x 5 4792-9278 Surgical History Hernia repair with mesh Dr Virgen - Kasey srivastava 12/21/2010 Surgical History L ureteroscopy/laser lithotripsy 2011 Surgical History Revision for MRSA wound infection and re moval of mesh 11/21/2011 Surgical History redo of mesh - [place] 01/2012 Surgical History ESWL- Maximo 01/01 Surgical [...] Valve replacement 08/2017 Hospitalization History PE at [facility] 09/21/2018 Goals Section No Information Health Concerns No Information MEDICAL EQUIPMENT No Information MENTAL STATUS No Information FUNCTIONAL STATUS No Information ASSESSMENTS No Information PLAN OF TREATMENT Medication Medication Name Sig Start Date Stop Date Eliquis 2.5 MG 1 tablet Orally bid for 90 day(s) Apr, Tylenol with Codeine #4 1 tablet orally every 6 hours as needed MDD 4 Next Appt Details Provider Name:Gaetano Quezada 2020-05-14 08:0 0:00 AM, [address] [place], [address] Provider Name:Merlin Marsh, 08:00:00 AM, [address] , [place], [address], Provider Name:Rufina Chong, 2020-05-21 01:45:00 PM, [address] [place], [address], Provider Name:Barrett Flores, 2020-05-27 11:00:00 AM, [address] [place], [address], Provider Name:Rufina Chong, 2020-07-06 10:30:00 AM, [address] [place], [address], Insurance Providers Payer Name Payer Address Payer Phone Insured Name Patient Relati onship to Insured Coverage Start Date Coverage End Date [facility] [address] [facility] [id number] [address] MEDICAID [facility] [address] [facility] [address] [address] self
--- OUTSIDE RECORDS SUMMARY | 2020-06-29 23:21 | CCD ---
Author Author [facility] Organization [facility] Address Unknown Phone Unavailable Care Team Providers Care Tennis Ball Cover Cementer Name Role Phone Merlin Marsh Unavailable PROBLEMS Type Condition ICD9-CM Code IWM57-WL Code Onset Dates Condition S tatus SNOMED Code Notes Problem Morbid (severe) obesity due to excess calories E66 .01 Active 473232465 Problem Sleep apnea, unspecified G47.30 Active 0165200 6 Problem History of MRSA infection Z86.14 Active 475251 000 Problem Anemia in other chronic diseases classified elsewhere D63.8 Active 612729629 Problem Kidney stones N20.0 Active 40736346 Problem Bariatric surgery status Z98.84 Active 7881557 06 Problem Other chronic pain G89.29 Active 22182328 Problem Body mass index (BMI) 60.0-69.9, adult Z68.44 A ctive 639744392 Problem Gouty arthritis of toe of right foot M10.9 Act jez 506263829 Problem Migraine without status migr ainosus, not intractable, unspecified migraine type G43.909 Active 28114069 Problem S/P AVR (aortic valve replacement) Z95.2 Activ e 9632688412934 Problem Left-sided low back pain wit h left-sided sciatica, unspecified chronicity M54.42 Active 742248426 Problem Hx of pulmonary embolus Z86.711 Active 71906983 7 Problem Seasonal allergic rhinitis, unspecified trigger J3 0.2 Active 158560476 Problem Gastroesophageal reflux disease, esophagitis pre sence not specified K21.9 Active 957313486 Problem Microscopic hematuria R31.29 Active 303762615 Problem Acute right-sided low back pain with right-sided sciatica M54.41 Active 915007491 Problem Drug-induced polyneuropathy G62.0 Active 7339 009 Problem Mixed stress and urge urinary incontinence N39.46 Active 339589697 Problem Intestinal malabsorption, unspecified type K90.9 Active 348740529 Problem Vitamin D deficiency E55.9 Active 32435522 Problem Urinary incontinence R32 Active 024790854 Problem Essential hypertension I10 Active 38825154 Problem RLS (restless legs syndrome) G25.81 Active 329 83192 Problem Post-traumatic stress disorder, unspecified F43.10 Active 10601451 Problem Generalized anxiety disorder F41.1 Active 218 00999 Problem Major depressive disorder, recurrent, moderate F33 .1 Active 602178217 Problem Lumbago with sciatica, right side M54.41 Active 081487185 ALLERGIES Allergen (clinical drug ingredient) Drug/Non Drug Allergy do cumented on EMR Reaction Allergy Type Onset Date Status tetracycline Tetracycline HCl(ND Code:[address]-81) Rash Drug Allergy Active penicillin V Penicillin V Potassium(NDC Code:[address]-18) Rash Drug Allergy Active morphine Morphine Sulfate(NDC Code:[address]-09) IV = BURNING AND ITCHING BUT CAN TAKE WITH BENADRYL Drug Allergy Active duracef Rash Non Drug Allergy Active erythromycin Erythromycin(NDC Code:[address]-25) Rash Drug All ergy Active fentanyl Fentanyl(NDC Code:[address]-60) itching "I want to rip my skin off" Drug Allergy Active vancomycin Vancomycin HCl(NDC Code:[address]-89) i tching "I want to rip my skin off" Drug Allergy Active Adhesive Bandages rash,blisters Drug Allergy Ac tive Levaquin IV pruritis, redness Drug Allergy Ac tive sulfamethoxazole / trimethoprim Bactrim(ND Code:[address]-67) Anaphylaxis Drug Allergy Active ENCOUNTERS from 1955 to 2020-05-26 Encounter Location Date Provider Diagnosis [facility] [address] [place] [address] May Merlin Marsh Urinary incontinence R32 IMMUNIZATIONS Vaccine Route Administration Date Status Influenza [...] Education Language: Question Answer Notes Languages spoken: Polish Jehovah'S Witness: Question Answer Notes Jehovah'S Witness 33 None Drug and Alcohol Question Answer [...] Start Da te End Date Status Cymbalta 30 MG 1 capsule Orally Daily Jun, Active Tylenol with Codeine #4 1 tablet orally every 6 hours as needed MDD 4 Not-Taking Ropinirole HCl 5 MG 1 tab Orally before bedtime Active Gabapentin 600 MG 1 tablet Orally three times a day Feb Active Myrbetriq 50 MG 1 tablet Orally Once a day May, Active Calcium 500 + D3 500-200 MG-UNIT 1 tablet with a meal Orally Once a d ay Active Amoxicillin 500 MG 4 capsules 30-60 min prior t o dental procedure Orally Daily for 1 days Feb, Not-Taking Tab-A-Tyler - 1 tablet Orally Once a day Active Nystatin 110764 UNIT/GM 1 to affected area External ly Twice a day as needed for 90 days Jan, Active Vitamin C 500 MG 1 tablet Orally Once a day Active Tylenol Arthritis Pain 650 mg 2 tablets oral every bedtime Active Lisinopril-Hydrochlorothiazide 10-12.5 MG 1 tablet Orally Once a day Active Triamcinolone Acetonide 0.1 % 1 application Externally Twice a d ay Aug, Active Eliquis 2.5 MG 1 tablet Orally bid Apr, Active Acetaminophen-Codeine #4 300-60 MG 1 tablet as needed Orally every 6 hrs prn for pain mdd4 #45 tabs shoild last 30 days for 30 Days Apr, Active Metoprolol Tartrate 25 MG 1 tablet with food Orally Twice a day Active Vitamin B-12 2500 MCG 1 tablet Sublingual Daily Active Magnesium 400 MG 1 tablet with a meal Orally Once a day Active Vitamin D3 2000 UNIT 1 capsule Orally Once a day Active Cymbalta 60 MG 1 capsule Orally Once a day Jul, Active PROCEDURES No Information RESULTS No Results REASON FOR VISIT Urine Results, [employer] MEDICAL (GENERAL) HISTORY Type Description Date Medical [...] - [facility]COG in p ast-last imaging at [facility] Medical History DeQuervains tenosynovitis Medical [...] to infection. Follows with Dr. Paul in [place] Medical History Ppumlonary embolism, unprovoked - 2018; Eliquis Medical History Polynueuropathy in lower ext remities due to prolonged course of Zyvox (9 months) Surgical History Tonsillectomy and Adenoidectomy 1966 Surgical History Bilateral bunionectomy 1973 Surgical History 1986 Surgical History L wrist ganglionectomy 1988 Surgical History L breast biopsy Surgical History Total hysterectomy 1997 Surgical History R knee arthroscopy 2003 Surgical History Bilateral knee replacement 2007 Surgical History Gastric Bypass-Dr Hidalgo 2006 2006 Surgical History ESWL x 5 0234-3707 Surgical History Hernia repair with mesh Dr Promise Robertson 12/21/2010 Surgical History L ureteroscopy/laser lithotripsy 2011 Surgical History Revision for MRSA wound infection and re moval of mesh 11/21/2011 Surgical History redo of mesh - [place] 01/2012 Surgical History ESWL- Maximo 01/01 Surgical [...] Valve replacement 08/2017 Hospitalization History PE at [facility] 09/21/2018 Goals Section No Information Health Concerns No Information MEDICAL EQUIPMENT No Information MENTAL STATUS No Information FUNCTIONAL STATUS No Information ASSESSMENTS Encounter Date Diagnosis Assessment Notes Treatment Notes Treatm ent Clinical Notes May, Urinary incontinence (ICD-10 - R32) PLAN OF TREATMENT Next Appt Details Provider Name:Barrett Flores, 2020-05-27 11:00:00 AM, [address] [place], [address], Provider Name:Gaetano Quezada, 2020-06-05 11:0 0:00 AM, [address] [place], [address] Provider Name:Rufina Chong, 2020-07-06 10:30:00 AM, [address] [place], [address], Provider Name:Merlin Marsh, 02:45:00 PM, [address], [place], [address], Insurance Providers Payer Name Payer Address Payer Phone Insured Name Patient Relati onship to Insured Coverage Start Date Coverage End Date [facility] [address] [facility] [phone] [address] MEDICAID [employer] [address] [facility] [address] [address] self
--- OUTSIDE RECORDS SUMMARY | 2020-06-29 23:21 | CCD ---
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 Name Role Phone Gaetano Quezada Unavailable PROBLEMS Type Condition ICD9-CM Code [id number] Code Onset Dates Condition S tatus SNOMED Code Notes Problem Sleep apnea, unspecified G47.30 Active 6851786 6 Problem Anemia in other chronic diseases classified elsewhere D63.8 Active 515632991 Problem Morbid (severe) obesity due to excess calories E66 .01 Active 803315638 Problem Bariatric surgery status Z98.84 Active 5278031 06 Problem History of MRSA infection Z86.14 Active 727348 000 Problem Body mass index (BMI) 60.0-69.9, adult Z68.44 A ctive 476000003 Problem Gastroesophageal reflux disease, esophagitis pre sence not specified K21.9 Active 862618643 Problem Migraine without status migr ainosus, not intractable, unspecified migraine type G43.909 Active 87841787 Problem RLS (restless legs syndrome) G25.81 Active 329 58209 Problem Left-sided low back pain wit h left-sided sciatica, unspecified chronicity M54.42 Active 724421177 Problem Gouty arthritis of toe of right foot M10.9 Act jez 018051257 Problem Seasonal allergic rhinitis, unspecified trigger J3 0.2 Active 813064886 Problem S/P AVR (aortic valve replacement) Z95.2 Activ e 8392476983668 Problem Microscopic hematuria R31.29 Active 879907117 Problem Hx of pulmonary embolus Z86.711 Active 38133903 7 Problem Other chronic pain G89.29 Active 92790984 Problem Acute right-sided low back pain with right-sided sciatica M54.41 Active 964541556 Problem Drug-induced polyneuropathy G62.0 Active 7339 009 Problem Lumbago with sciatica, right side M54.41 Active 593924408 Problem Essential hypertension I10 Active 97403841 Problem Intestinal malabsorption, unspecified type K90.9 Active 093102441 Problem Kidney stones N20.0 Active 81573490 Problem Vitamin D deficiency E55.9 Active 04668196 Problem Mixed stress and urge urinary incontinence N39.46 Active 711113730 Problem Post-traumatic stress disorder, unspecified F43.10 Active 32849626 Problem Generalized anxiety disorder F41.1 Active 218 52065 Problem Major depressive disorder, recurrent, moderate F33 .1 Active 940891037 ALLERGIES Allergen (clinical drug ingredient) Drug/Non Drug Allergy do cumented on EMR Reaction Allergy Type Onset Date Status tetracycline Tetracycline HCl(ND Code:[address]-88) Rash Drug Allergy Active penicillin V Penicillin V Potassium(NDC Code:[address]-37) Rash Drug Allergy Active morphine Morphine Sulfate(NDC Code:[address]-65) IV = BURNING AND ITCHING BUT CAN TAKE WITH BENADRYL Drug Allergy Active duracef Rash Non Drug Allergy Active erythromycin Erythromycin(NDC Code:[address]-98) Rash Drug All ergy Active fentanyl Fentanyl(NDC Code:[address]-43) itching "I want to rip my skin off" Drug Allergy Active vancomycin Vancomycin HCl(NDC Code:[address]-96) i tching "I want to rip my skin off" Drug Allergy Active Adhesive Bandages rash,blisters Drug Allergy Ac tive Levaquin IV pruritis, redness Drug Allergy Ac tive sulfamethoxazole / trimethoprim Bactrim(ND Code:[address]-13) Anaphylaxis Drug Allergy Active ENCOUNTERS from 1955 to 2020-05-21 Encounter Location Date Provider Diagnosis [address] [address] May, Gaetano Quezada Post-traumatic stress disorder, unspecif ied F43.10 ; Generalized anxiety disorder F41.1 and Major depressive disorder, recurrent, moderate F33.1 IMMUNIZATIONS Vaccine Route Administration Date Status Influenza [...] Education Language: Question Answer Notes Languages spoken: [place] Orthodox: Question Answer Notes Orthodox 33 None Drug and Alcohol Question Answer [...] hrs prn for pain mdd4 #45 tabs donnaild last 30 days for 30 Days Apr, Active Vitamin B-12 2500 MCG 1 tablet Sublingual Daily Active Cymbalta 60 MG 1 capsule Orally Once a day Jul, Active Magnesium 400 MG 1 tablet with a meal Orally Once a day Active Lisinopril-Hydrochlorothiazide 10-12.5 MG 1 tablet Orally Once a day Active Tylenol with Codeine #4 1 tablet orally every 6 hours as needed MDD 4 Active Cymbalta 30 MG 1 capsule Orally Daily Jun, Active Eliquis 2.5 MG 1 tablet Orally bid Apr, Active Triamcinolone Acetonide 0.1 % 1 application Externally Twice a d ay Aug, Active Vitamin C 500 MG 1 tablet Orally Once a day Active Gabapentin 600 MG 1 tablet Orally three times a day Feb Active Ropinirole HCl 5 MG 1 tab Orally before bedtime Active Amoxicillin 500 MG 4 capsules 30-60 min prior t o dental procedure Orally Daily for 1 days Feb, Not-Taking Metoprolol Tartrate 25 MG 1 tablet with food Orally Twice a day Active Vitamin D3 2000 UNIT 1 capsule Orally Once a day Active Nystatin 946738 UNIT/GM 1 to affected area External ly Twice a day as needed for 90 days Jan, Active Tylenol Arthritis Pain 650 mg 2 tablets oral every bedtime Active Calcium 500 + D3 500-200 MG-UNIT 1 tablet with a meal Orally Once a d ay Active PROCEDURES No Information RESULTS No Results REASON FOR VISIT TS FOLLOW UP MEDICAL (GENERAL) HISTORY Type Description Date Medical [...] - [facility] in p ast-last imaging at [facility] Medical History DeQuervains tenosynovitis Medical History [...] to infection. Follows with Dr. Paul in [place] Medical History Ppumlonary embolism, unprovoked - 2018; [...] 2006 2006 Surgical History ESWL x 5 7527-6057 Surgical History Hernia repair with mesh Dr Virgen - K[facility]y srivastava 12/21/2010 Surgical History L ureteroscopy/laser lithotripsy 2011 Surgical History Revision for MRSA wound infection and re moval of mesh 11/21/2011 Surgical History redo of mesh - [place] 01/2012 Surgical History ESWL- [place] 01/01 Surgical [...] Valve replacement 08/2017 Hospitalization History PE at [facility] 09/21/2018 Goals Section No Information Health Concerns No Information MEDICAL EQUIPMENT No Information MENTAL STATUS No Information FUNCTIONAL STATUS No Information ASSESSMENTS Encounter Date Diagnosis Assessment Notes Treatment Notes Treatm ent Clinical Notes May, Post-traumatic stress disorder, unspecified (ICD -10 - F43.10) May, Generalized anxiety disorder (ICD-10 - F41.1) May, Major depressive disorder, recurrent, moderate ( ICD-10 - F33.1) May, Other Utilized Mindfu lness Based Therapy to review a guided relaxation technique for decreasing her symptoms of anxiety. Keiry arrived on time for her appointment and actively engaged throughout her session. Keiry was responsive to the Mindfulness Based Therapy guided relaxation intervention for decreasing her symptoms of anxiety. Keiry reports that she has feeling anxious about her family and other social events. Keiry agreed to utilize the technique that we role played and will return for psychotherapy on 06/05/2020. Keiry is aware to call for an earlier appointment or utilize the ED for MH emergencies. PLAN OF TREATMENT Medication Medication Name Sig Start Date Stop Date Eliquis 2.5 MG 1 tablet Orally bid Apr, Cymbalta 30 MG 1 capsule Orally Daily Jun, Ropinirole HCl 5 MG 1 tab Orally before bedtime Lisinopril-Hydrochlorothiazide 10-12.5 MG 1 tablet Orally Once a day Calcium 500 + D3 500-200 MG-UNIT 1 tablet with a meal Orally Onc e a day Vitamin D3 2000 UNIT 1 capsule Orally Once a day Metoprolol Tartrate 25 MG 1 tablet with food Orally Twice a day Tylenol Arthritis Pain 650 mg 2 tablets oral every bedtime Gabapentin 600 MG 1 tablet Orally three times a day Feb, Cymbalta 60 MG 1 capsule Orally Once a day Jul, Tab-A-Tyler - 1 tablet Orally Once a day Vitamin B-12 2500 MCG 1 tablet Sublingual Daily Magnesium 400 MG 1 tablet with a meal Orally Once a day Tylenol with Codeine #4 1 tablet orally every 6 hours as needed MDD 4 Next Appt Details Provider Name:Merlin Carlo Marsh, 08:30:00 AM, [address] [place], [address], Provider Name:Barrett Flores, 2020-05-27 11:00:00 AM, [address] [place], [address], Provider Name:Gaetano Quezada, 2020-06-05 11:0 0:00 AM, [address] [place] [address], [phone] Provider Name:Rufina Chong, 2020-07-06 10:30:00 AM, [address] [place] [address], [phone], Insurance Providers Payer Name Payer Address Payer Phone Insured Name Patient Relati onship to Insured Coverage Start Date Coverage End Date [facility] [address] [facility] [phone] COURTNEY STARR MEDICAID [facility] [address] [facility] [id number] [address]ARR
--- OUTSIDE RECORDS SUMMARY | 2020-06-29 23:21 | CCD ---
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 Shop Mechanic Name Role Phone Leia Valdes Unavailable PROBLEMS Type Condition ICD9-CM Code [id number] Code Onset Dates Condition S tatus SNOMED Code Notes Problem Low back pain M54.5 Active 199245391 Problem Essential hypertension I10 Active 72188154 Problem Kidney stones N20.0 Active 58923834 Problem RLS (restless legs syndrome) G25.81 Active 329 25648 Problem Vitamin D deficiency E55.9 Active 87391809 Problem Migraine without status migr ainosus, not intractable, unspecified migraine type G43.909 Active 75495043 Problem Depression with anxiety F41.8 Active 49700163 6 Problem Drug-induced polyneuropathy G62.0 Active 7339 009 Problem Anemia in other chronic diseases classified elsewhere D63.8 Active 396704853 Problem Locking of left knee M23.92 Active 25159541636 766476 Problem Morbid (severe) obesity due to excess calories E66 .01 Active 315062948 Problem Bariatric surgery status Z98.84 Active 4182461 06 Problem Other specified polyneuropathies G62.89 Active 01623046 Problem Seasonal allergic rhinitis, unspecified trigger J3 0.2 Active 969488847 Problem S/P AVR (aortic valve replacement) Z95.2 Activ e 9619473041372 Problem Microscopic hematuria R31.29 Active 170806015 Problem Hx of pulmonary embolus Z86.711 Active 68690796 7 Problem Body mass index (BMI) 60.0-69.9, adult Z68.44 A ctive 493184676 Problem History of MRSA infection Z86.14 Active 137780 000 Problem Gastroesophageal reflux disease, esophagitis pre sence not specified K21.9 Active 737144543 Problem Acute right-sided low back pain with right-sided sciatica M54.41 Active 571445729 Problem Migraine, unspecified, not intractable, without status migrainosus G43.909 Active 47562080 Problem Other chronic pain G89.29 Active 63575239 Problem Sleep apnea, unspecified G47.30 Active 2416422 6 Problem Chronic sciatica of right side M54.31 Active 3 59915889 Problem Mixed stress and urge urinary incontinence N39.46 Active 197466627 Problem Unspecified urinary incontinence R32 Active 56127139 Problem Major depressive disorder, recurrent, moderate F33 .1 Active 091526043 Problem Left-sided low back pain wit h left-sided sciatica, unspecified chronicity M54.42 Active 529672791 Problem Lumbago with sciatica, right side M54.41 Active 800309503 Problem Gouty arthritis of toe of right foot M10.9 Act jez 618934919 Problem Abnormal mammogram R92.8 Active 352611309 Problem Full incontinence of feces R15.9 Active 90960 2137998047 Problem Fecal urgency R15.2 Active 32400908 Problem Post-traumatic stress disorder, unspecified F43.10 Active 03041339 Problem Generalized anxiety disorder F41.1 Active 218 28474 ALLERGIES Allergen (clinical drug ingredient) Drug/Non Drug Allergy do cumented on EMR Reaction Allergy Type Onset Date Status tetracycline Tetracycline HCl(NDC Code:[address]-53) Rash Drug Allergy Active penicillin V Penicillin V Potassium(NDC Code:[address]-74) Rash Drug Allergy Active morphine Morphine Sulfate(NDC Code:[address]-58) IV = BURNING AND ITCHING BUT CAN TAKE WITH BENADRYL Drug Allergy Active duracef Rash Non Drug Allergy Active erythromycin Erythromycin(NDC Code:[address]-24) Rash Drug All ergy Active fentanyl Fentanyl(NDC Code:[address]-77) itching "I want to rip my skin off" Drug Allergy Active vancomycin Vancomycin HCl(NDC Code:[address]-95) i tching "I want to rip my skin off" Drug Allergy Active Adhesive Bandages rash,blisters Drug Allergy Ac tive Levaquin IV pruritis, redness Drug Allergy Ac tive sulfamethoxazole / trimethoprim Bactrim([facility] Code:[address]-47) Anaphylaxis Drug Allergy Active ENCOUNTERS from 1955 to 2020-05-13 Encounter Location Date Provider Diagnosis [facility] [address] [place] [address] Apr, Leia Valdes Low back pain M54.5 IMMUNIZATIONS Vaccine Route Administration Date Status Influenza [...] Education Language: Question Answer Notes Languages spoken: Nepali Cheondoism: Question Answer Notes Cheondoism 33 None Drug and Alcohol Question Answer [...] Notes Start Da te End Date Status Eliquis 0.5 tab (5mg) orally Twice a day Not-Taking Cymbalta 60 MG 1 capsule Orally Once a day Jul, Active Triamcinolone Acetonide 0.1 % 1 application Externally Twice a d ay Aug, Active Acetaminophen 325 MG 2 tablet as needed Orally every 6 hrs Not-Taking Magnesium 400 MG 1 tablet with a meal Orally Once a day Active Vitamin C 500 MG 1 tablet Orally Once a day Active Tylenol Arthritis Pain 650 mg 2 tablets oral every bedtime Active Metoprolol Tartrate 25 MG 1 tablet with food Orally Twice a day Active Lisinopril-Hydrochlorothiazide 10-12.5 MG 1 tablet Orally Once a day Active Amoxicillin 500 MG 4 capsules 30-60 min prior t o dental procedure Orally Daily for 1 days Feb, Not-Taking Acetaminophen-Codeine #4 300-60 MG 1 tablet as needed Orally every 6 hrs prn for pain mdd4 #45 tabs shoild last 30 days for 30 Days Apr, Active Tab-A-Tyler - 1 tablet Orally Once a day Active Gabapentin 600 MG 1 tablet Orally three times a day Feb Active Nystatin 917149 UNIT/GM 1 to affected area External ly Twice a day as needed for 90 days Jan, Active Vitamin B-12 2500 MCG 1 tablet Sublingual Daily Active Vitamin D3 2000 UNIT 1 capsule Orally Once a day Active Wellbutrin XL 150 MG 1 tablet in the morning Orally Once a day Feb, Active Tylenol with Codeine #4 1 tablet orally every 6 hours as needed MDD 4 Active Folic Acid 1 MG 1 tablet Orally Once a day for 90 Not-Taking Ropinirole HCl 5 MG 1 tab Orally before bedtime for 90 day(s) Active Eliquis 2.5 MG 1 tablet Orally bid for 90 day(s) Apr, 020 Active Calcium 500 + D3 500-200 MG-UNIT 1 tablet with a meal Orally Once a d ay Active Cymbalta 30 MG 1 capsule Orally Daily Jun, Active PROCEDURES No Information RESULTS No Results REASON FOR VISIT refill Tylenol #4 MEDICAL (GENERAL) HISTORY Type Description Date Medical [...] - [facility] in p ast-last imaging at [facility] Medical History DeQuervains tenosynovitis Medical History [...] to infection. Follows with Dr. Paul in [place] Medical History Ppumlonary embolism, unprovoked - 2018; [...] 2006 2006 Surgical History ESWL x 5 2333-5118 Surgical History Hernia repair with mesh Dr Virgen - [place] e 12/21/2010 Surgical History L ureteroscopy/laser lithotripsy 2011 Surgical History Revision for MRSA wound infection and re moval of mesh 11/21/2011 Surgical History redo of mesh - [place] 01/2012 Surgical History ESWL- [place] 01/01 Surgical [...] Valve replacement 08/2017 Hospitalization History PE at [facility] 09/21/2018 Goals Section No Information Health Concerns No Information MEDICAL EQUIPMENT No Information MENTAL STATUS No Information FUNCTIONAL STATUS No Information ASSESSMENTS Encounter Date Diagnosis Assessment Notes Treatment Notes Treatm ent Clinical Notes Apr, Low back pain (ICD-10 - M54.5) PLAN OF TREATMENT Medication Medication Name Sig Start Date Stop Date Acetaminophen-Codeine #4 300-60 MG 1 tablet as needed Orally every 6 hrs prn for pain mdd4 #45 tabs shoild last 30 days for 30 Days Apr, Eliquis 2.5 MG 1 tablet Orally bid for 90 day(s) Apr, Next Appt Details Provider Name:Gaetano Quezada, 2020-05-14 08:0 0:00 AM, [address] [place] [address], [phone] Provider Name:Merlin Marsh, 08:00:00 AM, [address] [place], [address], Provider Name:Rufina Chong, 2020-05-21 01:45:00 PM, [address] [place] [address], [phone], Provider Name:Barrett Flores, 2020-05-27 11:00:00 AM, [address] [place], [address], Provider Name:Rufina Chong, 2020-07-06 10:30:00 AM, [address] [place] [address], [phone], Insurance Providers Payer Name Payer Address Payer Phone Insured Name Patient Relati onship to Insured Coverage Start Date Coverage End Date [facility] [address] [facility] [phone] COURTNEY STARR MEDICAID [facility] [address] [facility] [address] [address]
--- OUTSIDE RECORDS SUMMARY | 2020-06-29 23:21 | CCD ---
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 Repairer Name Role Phone Rufina Chong Unavailable PROBLEMS Type Condition ICD9-CM Code VJV89-CP Code Onset Dates Condition S tatus SNOMED Code Notes Problem Morbid (severe) obesity due to excess calories E66 .01 Active 015538380 Problem Sleep apnea, unspecified G47.30 Active 2272213 6 Problem History of MRSA infection Z86.14 Active 601835 000 Problem Anemia in other chronic diseases classified elsewhere D63.8 Active 839677972 Problem Kidney stones N20.0 Active 45331518 Problem Bariatric surgery status Z98.84 Active 5761053 06 Problem Other chronic pain G89.29 Active 17664348 Problem Body mass index (BMI) 60.0-69.9, adult Z68.44 A ctive 078397318 Problem Gouty arthritis of toe of right foot M10.9 Act jez 445731073 Problem Migraine without status migr ainosus, not intractable, unspecified migraine type G43.909 Active 51609205 Problem S/P AVR (aortic valve replacement) Z95.2 Activ e 2213792616353 Problem Left-sided low back pain wit h left-sided sciatica, unspecified chronicity M54.42 Active 422515397 Problem Hx of pulmonary embolus Z86.711 Active 55150918 7 Problem Seasonal allergic rhinitis, unspecified trigger J3 0.2 Active 883105416 Problem Gastroesophageal reflux disease, esophagitis pre sence not specified K21.9 Active 480059303 Problem Microscopic hematuria R31.29 Active 990165443 Problem Acute right-sided low back pain with right-sided sciatica M54.41 Active 822262686 Problem Drug-induced polyneuropathy G62.0 Active 7339 009 Problem Mixed stress and urge urinary incontinence N39.46 Active 334195405 Problem Intestinal malabsorption, unspecified type K90.9 Active 410925134 Problem Vitamin D deficiency E55.9 Active 31557377 Problem Urinary incontinence R32 Active 805751391 Problem Essential hypertension I10 Active 91165546 Problem RLS (restless legs syndrome) G25.81 Active 329 22799 Problem Post-traumatic stress disorder, unspecified F43.10 Active 16018235 Problem Generalized anxiety disorder F41.1 Active 218 14540 Problem Major depressive disorder, recurrent, moderate F33 .1 Active 634519542 Problem Lumbago with sciatica, right side M54.41 Active 099736767 ALLERGIES Allergen (clinical drug ingredient) Drug/Non Drug Allergy do cumented on EMR Reaction Allergy Type Onset Date Status tetracycline Tetracycline HCl(ND Code:[address]-90) Rash Drug Allergy Active penicillin V Penicillin V Potassium(NDC Code:[address]-10) Rash Drug Allergy Active morphine Morphine Sulfate(NDC Code:[address]-15) IV = BURNING AND ITCHING BUT CAN TAKE WITH BENADRYL Drug Allergy Active duracef Rash Non Drug Allergy Active erythromycin Erythromycin(NDC Code:[address]-73) Rash Drug All ergy Active fentanyl Fentanyl(NDC Code:[address]-73) itching "I want to rip my skin off" Drug Allergy Active vancomycin Vancomycin HCl(NDC Code:[address]-69) i tching "I want to rip my skin off" Drug Allergy Active Adhesive Bandages rash,blisters Drug Allergy Ac tive Levaquin IV pruritis, redness Drug Allergy Ac tive sulfamethoxazole / trimethoprim Bactrim(ND Code:[address]-10) Anaphylaxis Drug Allergy Active ENCOUNTERS from 1955 to 2020-05-22 Encounter Location Date Provider Diagnosis [facility] [address] [place] [address] May, [facility] Annual physical exam Z00.00 ; Essential hypertension I10 ; Major depressive disorder, recurrent, moderate F33.1 ; Generalized anxiety disorder F41.1 ; Mixed stress and urge urinary incontinence N39.46 ; Cracked skin on feet R23.4 ; Morbid (severe) obesity due to excess calories E66.01 ; Body mass index (BMI) 60.0-69.9, adult Z68.44 ; Sleep apnea, unspecified G47.30 ; Anemia in other chronic diseases classified elsewhere D63.8 ; Bariatric surgery status Z98.84 ; Migraine without status migrainosus, not intractable, unspecified migraine type G43.909 ; RLS (restless legs syndrome) G25.81 ; Vitamin D de ficiency E55.9 ; Left-sided low back pain with left-sided sciatica, unspecified chronicity M54.42 ; Other chronic pain G89.29 ; Intestinal malabsorption, unspecified type K90.9 ; Screening for hyperlipidemia Z13.220 ; S/P AVR (aortic valve replacement) Z95.2 and Hx of pulmonary embolus Z86.711 IMMUNIZATIONS Vaccine Route Administration Date Status Influenza [...] Education Language: Question Answer Notes Languages spoken: [place] Rican Methodist: Question Answer Notes [facility] 33 None Drug and Alcohol Question Answer Notes Total Score: 0 Interpretation: No problems reported BMI Care Goal Follow-Up Question Answer Notes Above Normal BMI Follow-Up Dietary management educatio n, guidance, and counseling Tobacco Use: Question Answer Notes Are you a: never smoker REASON FOR REFERRAL No Information VITAL SIGNS Weight 409 lbs May, Height 64 in May, BMI 70.20 kg/m2 May, Heart Rate 71 /min May, Respiratory Rate 20 /min May, Temperature 97 degrees Fahrenheit May, Oximetry 97 May, Blood pressure systolic 140 mm Hg May, Blood pressure diastolic 80 mm Hg May, MEDICATIONS Medication SIG (Take, Route, Frequency, Duration) Notes Start Da te End Date Status Triamcinolone Acetonide 0.1 % 1 application Externally Twice a d ay Aug, Active Calcium 500 + D3 500-200 MG-UNIT 1 tablet with a meal Orally Once a d ay Active Acetaminophen-Codeine #4 300-60 MG 1 tablet as needed Orally every 6 hrs prn for pain mdd4 #45 tabs shoild last 30 days for 30 Days Apr, Active Ropinirole HCl 5 MG 1 tab Orally before bedtime Active Vitamin D3 2000 UNIT 1 capsule Orally Once a day Active Cymbalta 60 MG 1 capsule Orally Once a day Jul, Active Gabapentin 600 MG 1 tablet Orally three times a day Feb Active Metoprolol Tartrate 25 MG 1 tablet with food Orally Twice a day Active Eliquis 2.5 MG 1 tablet Orally bid Apr, Active Tylenol Arthritis Pain 650 mg 2 tablets oral every bedtime Active Vitamin B-12 2500 MCG 1 tablet Sublingual Daily Active Vitamin C 500 MG 1 tablet Orally Once a day Active Tylenol with Codeine #4 1 tablet orally every 6 hours as needed MDD 4 Active Nystatin 516433 UNIT/GM 1 to affected area External ly Twice a day as needed for 90 days Jan, Active Amoxicillin 500 MG 4 capsules 30-60 min prior t o dental procedure Orally Daily for 1 days Feb, Not-Taking Magnesium 400 MG 1 tablet with a meal Orally Once a day Active Lisinopril-Hydrochlorothiazide 10-12.5 MG 1 tablet Orally Once a day Active Cymbalta 30 MG 1 capsule Orally Daily Jun, Active Tab-A-Tyler - 1 tablet Orally Once a day Active PROCEDURES No Information RESULTS No Results REASON FOR VISIT AWV, Operation was canceled MEDICAL (GENERAL) HISTORY Type Description Date Medical [...] in p ast-last imaging at [facility] Medical History DeQuervains tenosynovitis Medical History [...] to infection. Follows with Dr. Paul in [place] Medical History Ppumlonary embolism, unprovoked - 2018; [...] 2006 2006 Surgical History ESWL x 5 1567-1968 Surgical History Hernia repair with mesh Dr Promise Robertson 12/21/2010 Surgical History L ureteroscopy/laser lithotripsy 2011 Surgical History Revision for MRSA wound infection and re moval of mesh 11/21/2011 Surgical History redo of mesh - [place] 01/2012 Surgical History ESWL- [place] 01/01 Surgical [...] Valve replacement 08/2017 Hospitalization History PE at [facility] 09/21/2018 Goals Section No Information Health Concerns No Information MEDICAL EQUIPMENT No Information MENTAL STATUS No Information FUNCTIONAL STATUS No Information ASSESSMENTS Encounter Date Diagnosis Assessment Notes Treatment Notes Treatm ent Clinical Notes May, Annual physical exam (ICD-10 - Z00.00) Medical, surgical, and family histories were reviewed and updated. See preventative section. May, Essential hypertension (ICD-10 - I10) Per JNC 8 guidelines, goal BP 150/90 if age >60; is meeting goal on current regimen. Advised heart-healthy diet, sodium restriction. May, Major depressive disorder, recurrent, moderate ( ICD-10 - F33.1) Wellbutrin is not effective and may be interfering with effectiveness of her pain medication, so will stop Wellbutrin. May, Generalized anxiety disorder (ICD-10 - F41.1) See above. May, Mixed stress and urge urinary incontinence (ICD- 10 - N39.46) I discussed medications for this; she declines due to concern about side effects and plans to discuss with her Urologist tomorrow. May, Cracked skin on feet (ICD-10 - R23.4) Declines podiatry referral; I recommend use of good emollients. May, Morbid (severe) obesity due to excess calories ( ICD-10 - E66.01) She plans to see a bariatric surgeon. May, Body mass index (BMI) 60.0-69.9, adult (ICD-10 - Z68.44) May, Sleep apnea, unspecified (ICD-10 - G47.30) She has CPAP at home and is using it inconsistently. I encouraged her to use this consistently. May, Anemia in other chronic dise ases classified elsewhere (ICD-10 - D63.8) May, Bariatric surgery status (ICD-10 - Z98.84) May, Migraine without status migr ainosus, not intractable, unspecified migraine type (ICD-10 - G43.909) Admits to a migraine once last month; overall migraines are better than they used to be. May, RLS (restless legs syndrome) (ICD-10 - G25.81) Symptoms are controlled. May, Vitamin D deficiency (ICD-10 - E55.9) May, Left-sided low back pain wit h left-sided sciatica, unspecified chronicity (ICD-10 - M54.42) Following with the pain clinic. May, Other chronic pain (ICD-10 - G89.29) May, Intestinal malabsorption, unspecified type (ICD- 10 - K90.9) May, Screening for hyperlipidemia (ICD-10 - Z13.220) May, S/P AVR (aortic valve replacement) (ICD-10 - Z95 .2) Follows with cardiology. May, Hx of pulmonary embolus (ICD-10 - Z86.711) PLAN OF TREATMENT Treatment Notes Assessment Notes Clinical Notes Annual physical exam Medical, surgical, and family histories were reviewed and updated. See preventative section. Essential hypertension Per JNC 8 guideli blaine, goal BP 150/90 if age >60; is meeting goal on current regimen. Advised heart-healthy diet, sodium restriction. Major depressive disorder, recurrent, moderate Wellbutrin is not effective and may be interfering with effectiveness of her pain medication, so will stop Wellbutrin. Generalized anxiety disorder See above. Mixed stress and urge urinary incontinence I discussed medications for this; she declines due to concern about side effects and plans to discuss with her Urologist tomorrow. Cracked skin on feet Declines podiatry r eferral; I recommend use of good emollients. Morbid (severe) obesity due to excess calories She plans to see a bariatric surgeon. Sleep apnea, unspecified She has CPAP at home and is using it inconsistently. I encouraged her to use this consistently. Migraine without status migrainosus, not intractable, unspecified migraine type Admits to a migraine once last month; ov erall migraines are better than they used to be. RLS (restless legs syndrome) Symptoms ar e controlled. S/P AVR (aortic valve replacement) Follo ws with cardiology. Left-sided low back pain with left-sided sciatica, unspecifi ed chronicity Following with the pain clinic. Treatment Notes Test Name Order Date LIPID PANEL (CARDIAC RISK) 2020-05-22 CBC - Complete Blood Count 2020-05-22 Comprehensive Metabolic Profile (CMP) 2020-05-22 VITAMIN B1 LEVEL WHOLE BLOOD 2020-05-22 VITAMIN B12 LEVEL 2020-05-22 VITAMIN A, RETINOL LEVEL 2020-05-22 VITAMIN D 25-HYDROXY 2020-05-22 FERRITIN 2020-05-22 TOTAL IRON BINDING CAPACIT 2020-05-22 MAGNESIUM LEVEL 2020-05-22 PHOSPHOROUS LEVEL 2020-05-22 RBC FOLATE PROFILE 2020-05-22 HEMOGLOBIN A1c 2020-05-22 Next Appt Details as sched Reason: Provider Name:Barrett Flores, 2020-05-27 11:00:00 AM, [address] [place], [address], Provider Name:Gaetano Quezada, 2020-06-05 11:0 0:00 AM, [address] [place], [address] Provider Name:Rufina Chong, 2020-07-06 10:30:00 AM, [address] [place], [address], Insurance Providers Payer Name Payer Address Payer Phone Insured Name Patient Relati onship to Insured Coverage Start Date Coverage End Date MEDICAID [employer] [address] [facility] [id number] [facility] [address] [facility] [id number] [address]
--- OUTSIDE RECORDS SUMMARY | 2020-06-29 23:21 | CCD ---
Author Author [facility] Organization [facility] Address Unknown Phone Unavailable Care Team Providers Care Analytics Director Name Role Phone Rufina Chong Unavailable PROBLEMS Type Condition ICD9-CM Code PDG85-OL Code Onset Dates Condition S tatus SNOMED Code Notes Problem Low back pain M54.5 Active 859634943 Problem Essential hypertension I10 Active 41450361 Problem Kidney stones N20.0 Active 83915036 Problem RLS (restless legs syndrome) G25.81 Active 329 07359 Problem Vitamin D deficiency E55.9 Active 63704480 Problem Migraine without status migr ainosus, not intractable, unspecified migraine type G43.909 Active 92883550 Problem Depression with anxiety F41.8 Active 72696686 6 Problem Drug-induced polyneuropathy G62.0 Active 7339 009 Problem Anemia in other chronic diseases classified elsewhere D63.8 Active 961964690 Problem Locking of left knee M23.92 Active 41322879391 073453 Problem Morbid (severe) obesity due to excess calories E66 .01 Active 987693090 Problem Bariatric surgery status Z98.84 Active 5826880 06 Problem Other specified polyneuropathies G62.89 Active 48590164 Problem Seasonal allergic rhinitis, unspecified trigger J3 0.2 Active 958213908 Problem S/P AVR (aortic valve replacement) Z95.2 Activ e 0596926892457 Problem Microscopic hematuria R31.29 Active 466417426 Problem Hx of pulmonary embolus Z86.711 Active 47835394 7 Problem Body mass index (BMI) 60.0-69.9, adult Z68.44 A ctive 951186003 Problem History of MRSA infection Z86.14 Active 678767 000 Problem Gastroesophageal reflux disease, esophagitis pre sence not specified K21.9 Active 995100204 Problem Acute right-sided low back pain with right-sided sciatica M54.41 Active 294769869 Problem Migraine, unspecified, not intractable, without status migrainosus G43.909 Active 81233016 Problem Other chronic pain G89.29 Active 61585038 Problem Sleep apnea, unspecified G47.30 Active 6837487 6 Problem Chronic sciatica of right side M54.31 Active 3 83107145 Problem Mixed stress and urge urinary incontinence N39.46 Active 520207804 Problem Unspecified urinary incontinence R32 Active 68558706 Problem Major depressive disorder, recurrent, moderate F33 .1 Active 014712883 Problem Left-sided low back pain wit h left-sided sciatica, unspecified chronicity M54.42 Active 384749205 Problem Lumbago with sciatica, right side M54.41 Active 752692001 Problem Gouty arthritis of toe of right foot M10.9 Act jez 129564695 Problem Abnormal mammogram R92.8 Active 069460445 Problem Full incontinence of feces R15.9 Active 91638 5794671346 Problem Fecal urgency R15.2 Active 30438428 Problem Post-traumatic stress disorder, unspecified F43.10 Active 46101780 Problem Generalized anxiety disorder F41.1 Active 218 60014 ALLERGIES Allergen (clinical drug ingredient) Drug/Non Drug Allergy do cumented on EMR Reaction Allergy Type Onset Date Status tetracycline Tetracycline HCl(NDC Code:[address]-55) Rash Drug Allergy Active penicillin V Penicillin V Potassium(NDC Code:[address]-86) Rash Drug Allergy Active morphine Morphine Sulfate(NDC Code:[address]-59) IV = BURNING AND ITCHING BUT CAN TAKE WITH BENADRYL Drug Allergy Active duracef Rash Non Drug Allergy Active erythromycin Erythromycin(NDC Code:[address]-79) Rash Drug All ergy Active fentanyl Fentanyl(NDC Code:[address]-66) itching "I want to rip my skin off" Drug Allergy Active vancomycin Vancomycin HCl(NDC Code:[address]-29) i tching "I want to rip my skin off" Drug Allergy Active Adhesive Bandages rash,blisters Drug Allergy Ac tive Levaquin IV pruritis, redness Drug Allergy Ac tive sulfamethoxazole / trimethoprim Bactrim([facility] Code:[address]-93) Anaphylaxis Drug Allergy Active ENCOUNTERS from 1955 to 2020-05-06 Encounter Location Date Provider Diagnosis [facility] [place] [address] Apr, Rufina Chong IMMUNIZATIONS Vaccine Route Administration [...] Education Language: Question Answer Notes Languages spoken: Nicaraguan Uatsdin: Question Answer Notes Uatsdin 33 None Drug and Alcohol Question Answer [...] three times a day Feb Active Nystatin 029520 UNIT/GM 1 to affected area External ly [...] Information RESULTS No Results REASON FOR VISIT dorie MEDICAL (GENERAL) HISTORY Type Description Date Medical [...] - [facility] in p ast-last imaging [facility] Medical History DeQuervains tenosynovitis Medical [...] to infection. Follows with Dr. Paul in [place] Medical History Ppumlonary embolism, unprovoked - 2018; [...] 2006 2006 Surgical History ESWL x 5 6654-8097 Surgical History Hernia repair with mesh Dr Virgen - [facility] srivastava 12/21/2010 Surgical History L ureteroscopy/laser lithotripsy 2011 Surgical History Revision for MRSA wound infection and re moval of mesh 11/21/2011 Surgical History redo of mesh - [place] 01/2012 Surgical History ESWL- [place] 01/01 Surgical [...] replacement 08/2017 Hospitalization History PE at [facility] 09/21/2018 Goals Section No Information Health [...] Provider Name:Gaetano Quezada 2020-05-14 08:0 0:00 AM, [facility] [place], [address] Provider Name:Merlin Marsh, 08:00:00 AM, [address], [place], [address], Provider Name:Ruifna Barry Chong, 2020-05-21 01:45:00 PM, [address] [place], [address], Provider Name:Barrett Flores, 2020-05-27 11:00:00 AM, [address] [place], [address], Provider Name:Rufina Chong, 2020-07-06 10:30:00 AM, [address] [place], [address], Insurance Providers Payer Name Payer Address Payer Phone Insured Name Patient Relati onship to Insured Coverage Start Date Coverage End Date MEDICAID [employer] [address] [facility] [id number] [address] [facility] [address] [facility] [address] [address]
--- OUTSIDE RECORDS SUMMARY | 2020-06-29 23:21 | CCD ---
Author Author [facility] Organization [facility] Address Unknown Phone Unavailable Care Team Providers Care Home Health Care Respiratory Therapist Name Role Phone Rufina Chong Unavailable PROBLEMS Type Condition ICD9-CM Code UNL19-OK Code Onset Dates Condition S tatus SNOMED Code Notes Problem Sleep apnea, unspecified G47.30 Active 9366212 6 Problem Anemia in other chronic diseases classified elsewhere D63.8 Active 507556012 Problem Morbid (severe) obesity due to excess calories E66 .01 Active 319301555 Problem Kidney stones N20.0 Active 84594236 Problem Bariatric surgery status Z98.84 Active 4601482 06 Problem Vitamin D deficiency E55.9 Active 42396901 Problem Essential hypertension I10 Active 26511191 Problem Drug-induced polyneuropathy G62.0 Active 7339 009 Problem Acute right-sided low back pain with right-sided sciatica M54.41 Active 752392418 Problem History of MRSA infection Z86.14 Active 343275 000 Problem S/P AVR (aortic valve replacement) Z95.2 Activ e 9609940400752 Problem Left-sided low back pain wit h left-sided sciatica, unspecified chronicity M54.42 Active 070683798 Problem Hx of pulmonary embolus Z86.711 Active 34950955 7 Problem Seasonal allergic rhinitis, unspecified trigger J3 0.2 Active 344222681 Problem Gastroesophageal reflux disease, esophagitis pre sence not specified K21.9 Active 191668022 Problem Microscopic hematuria R31.29 Active 447222049 Problem Other chronic pain G89.29 Active 39803430 Problem Body mass index (BMI) 60.0-69.9, adult Z68.44 A ctive 705689055 Problem Mixed stress and urge urinary incontinence N39.46 Active 837552801 Problem Post-traumatic stress disorder, unspecified F43.10 Active 67345474 Problem Generalized anxiety disorder F41.1 Active 218 13293 Problem Spondylosis without myelopathy or radiculopathy, lumbosacral region M47.817 Active 19404311 Problem Migraine without status migr ainosus, not intractable, unspecified migraine type G43.909 Active 96036304 Problem Spondylosis without myelopathy or radiculopathy, lumbar region M47.816 Active 539575928 Problem RLS (restless legs syndrome) G25.81 Active 329 24404 Problem Gouty arthritis of toe of right foot M10.9 Act jez 483819505 Problem Major depressive disorder, recurrent, moderate F33 .1 Active 189289939 Problem Lumbago with sciatica, right side M54.41 Active 779396625 Problem Intestinal malabsorption, unspecified type K90.9 Active 983525782 Problem Urinary incontinence R32 Active 097251963 ALLERGIES Allergen (clinical drug ingredient) Drug/Non Drug Allergy do cumented on EMR Reaction Allergy Type Onset Date Status tetracycline Tetracycline HCl(NDC Code:[address]-30) Rash Drug Allergy Active penicillin V Penicillin V Potassium(NDC Code:[address]-75) Rash Drug Allergy Active morphine Morphine Sulfate(NDC Code:[address]-80) IV = BURNING AND ITCHING BUT CAN TAKE WITH BENADRYL Drug Allergy Active duracef Rash Non Drug Allergy Active erythromycin Erythromycin(NDC Code:[address]-01) Rash Drug All ergy Active fentanyl Fentanyl(NDC Code:[address]-64) itching "I want to rip my skin off" Drug Allergy Active vancomycin Vancomycin HCl(NDC Code:[address]-31) i tching "I want to rip my skin off" Drug Allergy Active Adhesive Bandages rash,blisters Drug Allergy Ac tive Levaquin IV pruritis, redness Drug Allergy Ac tive sulfamethoxazole / trimethoprim Bactrim(NDC Code:[address]-35) Anaphylaxis Drug Allergy Active ENCOUNTERS from 1955 to 2020-06-06 Encounter Location Date Provider Diagnosis [address] [address] May, Rufina Chong IMMUNIZATIONS Vaccine Route Administration [...] Education Language: Question Answer Notes Languages spoken: Moldovan Presybeterian: Question Answer Notes Presybeterian 33 None Drug and Alcohol Question Answer [...] 1 capsule Orally Daily Jun, Active Nystatin 189834 UNIT/GM 1 to affected area External ly [...] Information RESULTS No Results REASON FOR VISIT MISSING CODES AND NOTES MEDICAL (GENERAL) HISTORY Type Description Date Medical [...] - [facility] in p ast-last imaging at [facility] Medical History DeQuervains tenosynovitis Medical History [...] to infection. Follows with Dr. Paul in [place] Medical History Ppumlonary embolism, unprovoked - 2018; [...] 2006 2006 Surgical History ESWL x 5 0521-1204 Surgical History Hernia repair with mesh Dr Promise Robertson 12/21/2010 Surgical History L ureteroscopy/laser lithotripsy 2011 Surgical History Revision for MRSA wound infection and re moval of mesh 11/21/2011 Surgical History redo of mesh - [place] 01/2012 Surgical History ESWL- [place]imo 01/01 Surgical [...] Valve replacement 08/2017 Hospitalization History PE at [facility] 09/21/2018 Goals Section No Information Health Concerns No Information MEDICAL EQUIPMENT No Information MENTAL STATUS No Information FUNCTIONAL STATUS No Information ASSESSMENTS No Information PLAN OF TREATMENT Medication Medication Name Sig Start Date Stop Date Metoprolol Tartrate 25 MG 1 tablet with food Orally Twice a day for 90 Next Appt Details Provider Name:Leia Valdes, 2020-06-10 10 :00:00 AM, [address] [place], [address], Provider Name:Gaetano Quezada, 2020-06-11 08:0 0:00 AM, [address] [place], [address] Provider Name:Rufina Chong, 2020-06-11 09:00:00 AM, [address] [place], [address], Provider Name:Rufina Barry Chong, 2020-07-06 10:30:00 AM, [address] [facility], [place], [address], Provider Name:Merlinvahe Marsh, 02:45:00 PM, [address], [place], [address], Insurance Providers Payer Name Payer Address Payer Phone Insured Name Patient Relati onship to Insured Coverage Start Date Coverage End Date MEDICAID [employer] [address] [facility] [id number] [address] [facility] [address] [facility] [address] [address]
--- OUTSIDE RECORDS SUMMARY | 2020-06-29 23:21 | CCD ---
Author Author [facility] Organization [facility] ems Address Unknown Phone Unavailable Care Team Providers Care Car Icer Name Role Phone Leia Valdes Unavailable PROBLEMS Type Condition ICD9-CM Code DLE28-IA Code Onset Dates Condition S tatus SNOMED Code Notes Problem Low back pain M54.5 Active 094539623 Problem Essential hypertension I10 Active 10495054 Problem Kidney stones N20.0 Active 94442641 Problem RLS (restless legs syndrome) G25.81 Active 329 73501 Problem Vitamin D deficiency E55.9 Active 94369659 Problem Migraine without status migr ainosus, not intractable, unspecified migraine type G43.909 Active 87703632 Problem Depression with anxiety F41.8 Active 32077103 6 Problem Drug-induced polyneuropathy G62.0 Active 7339 009 Problem Anemia in other chronic diseases classified elsewhere D63.8 Active 094031517 Problem Locking of left knee M23.92 Active 47522277468 023383 Problem Morbid (severe) obesity due to excess calories E66 .01 Active 871720025 Problem Bariatric surgery status Z98.84 Active 2457718 06 Problem Other specified polyneuropathies G62.89 Active 71665644 Problem Seasonal allergic rhinitis, unspecified trigger J3 0.2 Active 076145414 Problem S/P AVR (aortic valve replacement) Z95.2 Activ e 9169568409266 Problem Microscopic hematuria R31.29 Active 742951160 Problem Hx of pulmonary embolus Z86.711 Active 22495116 7 Problem Body mass index (BMI) 60.0-69.9, adult Z68.44 A ctive 704864243 Problem History of MRSA infection Z86.14 Active 827478 000 Problem Gastroesophageal reflux disease, esophagitis pre sence not specified K21.9 Active 716686503 Problem Acute right-sided low back pain with right-sided sciatica M54.41 Active 551528523 Problem Migraine, unspecified, not intractable, without status migrainosus G43.909 Active 25485076 Problem Other chronic pain G89.29 Active 35070265 Problem Sleep apnea, unspecified G47.30 Active 3325320 6 Problem Chronic sciatica of right side M54.31 Active 3 19603384 Problem Mixed stress and urge urinary incontinence N39.46 Active 485893279 Problem Unspecified urinary incontinence R32 Active 59454527 Problem Major depressive disorder, recurrent, moderate F33 .1 Active 756888455 Problem Left-sided low back pain wit h left-sided sciatica, unspecified chronicity M54.42 Active 983406121 Problem Lumbago with sciatica, right side M54.41 Active 528608340 Problem Gouty arthritis of toe of right foot M10.9 Act jez 644957947 Problem Abnormal mammogram R92.8 Active 740744378 Problem Full incontinence of feces R15.9 Active 49001 9881387110 Problem Fecal urgency R15.2 Active 21927559 Problem Post-traumatic stress disorder, unspecified F43.10 Active 19455235 Problem Generalized anxiety disorder F41.1 Active 218 83987 ALLERGIES Allergen (clinical drug ingredient) Drug/Non Drug Allergy do cumented on EMR Reaction Allergy Type Onset Date Status tetracycline Tetracycline HCl(NDC Code:[address]-54) Rash Drug Allergy Active penicillin V Penicillin V Potassium(NDC Code:[address]-86) Rash Drug Allergy Active morphine Morphine Sulfate(NDC Code:[address]-52) IV = BURNING AND ITCHING BUT CAN TAKE WITH BENADRYL Drug Allergy Active duracef Rash Non Drug Allergy Active erythromycin Erythromycin(NDC Code:[address]-15) Rash Drug All ergy Active fentanyl Fentanyl(NDC Code:[address]-51) itching "I want to rip my skin off" Drug Allergy Active vancomycin Vancomycin HCl(NDC Code:[address]-19) i tching "I want to rip my skin off" Drug Allergy Active Adhesive Bandages rash,blisters Drug Allergy Ac tive Levaquin IV pruritis, redness Drug Allergy Ac tive sulfamethoxazole / trimethoprim Bactrim([facility] Code:[address]-71) Anaphylaxis Drug Allergy Active ENCOUNTERS from 1955 to 2020-04-27 Encounter Location Date Provider Diagnosis [facility] [address] [place] [address] Mar, Leia Valdes IMMUNIZATIONS Vaccine Route Administration Date Status Influenza [...] Education Language: Question Answer Notes Languages spoken: Luxembourger Yarsani: Question Answer Notes Yarsani 33 None Drug and Alcohol Question Answer [...] with food Orally Twice a day Active Gabapentin 600 MG 1 tablet Orally three times a day Feb Active Acetaminophen 325 MG 2 tablet as needed Orally every 6 hrs Not-Taking Eliquis 5 MG 1/2 tablet Orally twice a day Active Folic Acid 1 MG 1 tablet Orally Once a day for 90 Not-Taking Tylenol Arthritis Pain 650 mg 2 tablets oral every bedtime Active Nystatin 312312 UNIT/GM 1 to affected area External ly Twice a day as needed for 90 days Jan, Active Amoxicillin 500 MG 4 capsules 30-60 min prior t o dental procedure Orally Daily for 1 days Feb, Not-Taking Tylenol with Codeine #4 1 tablet orally every 6 hours as needed MDD 4 Active Tab-A-Tyler - 1 tablet Orally Once a day Active Calcium 500 + D3 500-200 MG-UNIT 1 tablet with a meal Orally Once a d ay Active Cymbalta 30 MG 1 capsule Orally Daily Jun, Active Ropinirole HCl 5 MG 1 tab Orally before bedtime for 90 day(s) Active Magnesium 400 MG 1 tablet with a meal Orally Once a day Active Vitamin B-12 2500 MCG 1 tablet Sublingual Daily Active Vitamin D3 2000 UNIT 1 capsule Orally Once a day Active Triamcinolone Acetonide 0.1 % 1 application Externally Twice a d ay Aug, Active Lisinopril-Hydrochlorothiazide 10-12.5 MG 1 tablet Orally Once a day Active Wellbutrin XL 150 MG 1 tablet in the morning Orally Once a day Feb, Active Cymbalta 60 MG 1 capsule Orally Once a day Jul, Active PROCEDURES No Information RESULTS No Results REASON FOR VISIT [facility] MEDICAL (GENERAL) HISTORY Type Description Date Medical [...] - [facility]COG in p ast-last imaging at [facility] Medical History DeQuervains tenosynovitis Medical History [...] to infection. Follows with Dr. Paul in [place] Medical History Ppumlonary embolism, unprovoked - 2018; [...] 2006 2006 Surgical History ESWL x 5 1691-5661 Surgical History Hernia repair with mesh Dr Virgen - Kasey srivastava 12/21/2010 Surgical History L ureteroscopy/laser lithotripsy 2011 Surgical History Revision for MRSA wound infection and re moval of mesh 11/21/2011 Surgical History redo of mesh - [place] 01/2012 Surgical History ESWL- Maximo 01/01 Surgical [...] Valve replacement 08/2017 Hospitalization History PE at [facility] 09/21/2018 Goals Section No Information Health Concerns No Information MEDICAL EQUIPMENT No Information MENTAL STATUS No Information FUNCTIONAL STATUS No Information ASSESSMENTS No Information PLAN OF TREATMENT Next Appt Details Provider Name:Rufina Chong, 2020-05-06 08:15:00 AM, [address] [place] [address], [phone], Provider Name:Gaetano Quezada 2020-05-14 08:0 0:00 AM, [address] [place] [address], [phone] Provider Name:Merlin Marsh, 08:00:00 AM, [address], [place], [address], Provider Name:Rufina Chong, 2020-05-21 01:45:00 PM, [address] [place], [address], Provider Name:Barrett Flores, 2020-05-27 11:00:00 AM, [address] [place], [address], Insurance Providers Payer Name Payer Address Payer Phone Insured Name Patient Relati onship to Insured Coverage Start Date Coverage End Date MEDICAID [employer] [address] [facility] [id number] [address] [facility] [address] [facility] [id number] [address]
--- OUTSIDE RECORDS SUMMARY | 2020-06-29 23:21 | CCD ---
Author Author [facility] Organization [facility] Address Unknown Phone Unavailable Care Team Providers Care Paperboard Box Maker Name Role Phone Barrett Flores Unavailable PROBLEMS Type Condition ICD9-CM Code ZCP36-CS Code Onset Dates Condition S tatus SNOMED Code Notes Problem Sleep apnea, unspecified G47.30 Active 5121846 6 Problem Anemia in other chronic diseases classified elsewhere D63.8 Active 774487239 Problem Morbid (severe) obesity due to excess calories E66 .01 Active 077538915 Problem Kidney stones N20.0 Active 33675249 Problem Bariatric surgery status Z98.84 Active 6533610 06 Problem Vitamin D deficiency E55.9 Active 78247762 Problem Essential hypertension I10 Active 83342969 Problem Drug-induced polyneuropathy G62.0 Active 7339 009 Problem Acute right-sided low back pain with right-sided sciatica M54.41 Active 562066112 Problem History of MRSA infection Z86.14 Active 121636 000 Problem S/P AVR (aortic valve replacement) Z95.2 Activ e 4523315073305 Problem Left-sided low back pain wit h left-sided sciatica, unspecified chronicity M54.42 Active 099668216 Problem Hx of pulmonary embolus Z86.711 Active 26939687 7 Problem Seasonal allergic rhinitis, unspecified trigger J3 0.2 Active 364762023 Problem Gastroesophageal reflux disease, esophagitis pre sence not specified K21.9 Active 127400113 Problem Microscopic hematuria R31.29 Active 831168740 Problem Other chronic pain G89.29 Active 52600524 Problem Body mass index (BMI) 60.0-69.9, adult Z68.44 A ctive 103220517 Problem Mixed stress and urge urinary incontinence N39.46 Active 306079853 Problem Post-traumatic stress disorder, unspecified F43.10 Active 06945783 Problem Generalized anxiety disorder F41.1 Active 218 80301 Problem Spondylosis without myelopathy or radiculopathy, lumbosacral region M47.817 Active 10011380 Problem Migraine without status migr ainosus, not intractable, unspecified migraine type G43.909 Active 80033421 Problem Spondylosis without myelopathy or radiculopathy, lumbar region M47.816 Active 266568923 Problem RLS (restless legs syndrome) G25.81 Active 329 44787 Problem Gouty arthritis of toe of right foot M10.9 Act jez 085379844 Problem Major depressive disorder, recurrent, moderate F33 .1 Active 200838632 Problem Lumbago with sciatica, right side M54.41 Active 516710908 Problem Intestinal malabsorption, unspecified type K90.9 Active 511312075 Problem Urinary incontinence R32 Active 927288223 ALLERGIES Allergen (clinical drug ingredient) Drug/Non Drug Allergy do cumented on EMR Reaction Allergy Type Onset Date Status tetracycline Tetracycline HCl(ND Code:[address]-94) Rash Drug Allergy Active penicillin V Penicillin V Potassium(NDC Code:[address]-04) Rash Drug Allergy Active morphine Morphine Sulfate(NDC Code:[address]-79) IV = BURNING AND ITCHING BUT CAN TAKE WITH BENADRYL Drug Allergy Active duracef Rash Non Drug Allergy Active erythromycin Erythromycin(NDC Code:[address]-59) Rash Drug All ergy Active fentanyl Fentanyl(NDC Code:[address]-63) itching "I want to rip my skin off" Drug Allergy Active vancomycin Vancomycin HCl(NDC Code:[address]-08) i tching "I want to rip my skin off" Drug Allergy Active Adhesive Bandages rash,blisters Drug Allergy Ac tive Levaquin IV pruritis, redness Drug Allergy Ac tive sulfamethoxazole / trimethoprim Bactrim(NDC Code:[address]-95) Anaphylaxis Drug Allergy Active ENCOUNTERS from 1955 to 2020-05-28 Encounter Location Date Provider Diagnosis [facility] [address] [place] [address] May, Barrett Flores Spondylosis without myelopathy or radicu lopathy, lumbar region M47.816 and Spondylosis without myelopathy or radiculopathy, lumbosacral region M47.817 IMMUNIZATIONS Vaccine Route Administration Date Status Influenza [...] Education Language: Question Answer Notes Languages spoken: Divehi Methodist: Question Answer Notes [facility] 33 None Drug and Alcohol Question Answer Notes Total Score: 0 Interpretation: No problems reported BMI Care Goal Follow-Up Question Answer Notes Above Normal BMI Follow-Up Dietary management educatio n, guidance, and counseling Tobacco Use: Question Answer Notes Are you a: never smoker REASON FOR REFERRAL No Information VITAL SIGNS Weight 410.2 lbs May, Height 64 in May, BMI 70.40 kg/m2 May, Heart Rate 75 /min May, Respiratory Rate 20 /min May, Temperature 99.6 degrees Fahrenheit May, Oximetry 100% May, Blood pressure systolic 178 mm Hg May, Blood pressure diastolic 77 mm Hg May, MEDICATIONS Medication SIG (Take, Route, Frequency, Duration) Notes Start Da te End Date Status Ropinirole HCl 5 MG 1 tab Orally before bedtime Active Eliquis 2.5 MG 1 tablet Orally bid Apr, Active Cymbalta 30 MG 1 capsule Orally Daily Jun, Active Nystatin 721079 UNIT/GM 1 to affected area External ly [...] Orally Once a day May, Active PROCEDURES from 1955 to 2020-05-28 Procedure Date Ordered Result Body Site Medication: Valium Tab 5mg Orally (Diazepam) 2020-05-27 N/A Medication: Upper Tract Tablet 5mg/325mg Orally (Hydrocodone /Acetaminophen) 2020-05-27 N/A RESULTS No Results REASON FOR VISIT Bilateral therapeutic lumbar facet block L4-L5, L5-S1 MEDICAL (GENERAL) HISTORY Type Description Date Medical History Hx Aortic stenosis with aort ic insufficiency, now s/p AVR with porcine valve 08/2017 - Medical History Morbid Obesity Medical History Hx Kidney Stones Medical History Depression with anxiety - previously fol lowed with [facility] Medical History h/o MRSA infected seroma - required [facility] History Unspecified anemia, anemia of chronic di sease Medical History Chronic back kwame - [facility]COG in p ast-last imaging at [facility] Medical History DeQuervains tenosynovitis Medical [...] to infection. Follows with Dr. Paul in [place] Medical History Ppumlonary embolism, unprovoked - 2018; [...] 2006 2006 Surgical History ESWL x 5 9795-0958 Surgical History Hernia repair with mesh Dr [...] replacement 08/2017 Hospitalization History PE at [facility] 09/21/2018 Goals Section No Information Health Concerns No Information MEDICAL EQUIPMENT No Information MENTAL STATUS No Information FUNCTIONAL STATUS No Information ASSESSMENTS Encounter Date Diagnosis Assessment Notes Treatment Notes Treatm ent Clinical Notes May, Spondylosis without myelopat hy or radiculopathy, lumbar region (ICD-10 - M47.816) May, Spondylosis without myelopat hy or radiculopathy, lumbosacral region (ICD-10 - M47.817) May, Other 05/26/20 1744 Pr e-procedure call completed. Zenia Quesada RN PLAN OF TREATMENT Medication Medication Name Sig Start Date Stop Date Metoprolol Tartrate 25 MG 1 tablet with food Orally Twice a day for 90 Treatment Notes Test Name Order Date [facility] FACET BLOCK (PAIN) 2020-05-28 Next Appt Details Follow up with BIOMEDICAL ENGINEERING TECHNICIAN Reason:Post bilateral therapeutic lumbar facet block L4-L5, L5-S1 Provider Name:Gaetano Quezada, 2020-06-05 11:0 0:00 AM, [address] [place], [address] Provider Name:Leia Valdes, 2020-06-10 10 :00:00 AM, [address] [place], [address], Provider Name:Rufina Chong, 2020-07-06 10:30:00 AM, [address] [place], [address], Provider Name:Merlin Marsh, 02:45:00 PM, [address], [place], [address], Follow Up:Follow up with [facility] bilateral therapeutic lumbar facet block L4-L5, L5-S1 Insurance Providers Payer Name Payer Address Payer Phone Insured Name Patient Relati onship to Insured Coverage Start Date Coverage End Date [facility] [address] [facility] [phone] [address] self MEDICAID [employer] [address] [facility] [id number] [address]
--- OUTSIDE RECORDS SUMMARY | 2020-06-29 23:21 | CCD ---
Author Author [facility] Organization [facility] Address Unknown Phone Unavailable Care Team Providers Care Dag Coater Name Role Phone Merlin Marsh Unavailable PROBLEMS Type Condition ICD9-CM Code XCC07-KU Code Onset Dates Condition S tatus SNOMED Code Notes Problem Morbid (severe) obesity due to excess calories E66 .01 Active 957589979 Problem Sleep apnea, unspecified G47.30 Active 2405314 6 Problem History of MRSA infection Z86.14 Active 103489 000 Problem Anemia in other chronic diseases classified elsewhere D63.8 Active 437942735 Problem Kidney stones N20.0 Active 07281314 Problem Bariatric surgery status Z98.84 Active 4690829 06 Problem Other chronic pain G89.29 Active 75637532 Problem Body mass index (BMI) 60.0-69.9, adult Z68.44 A ctive 926905911 Problem Gouty arthritis of toe of right foot M10.9 Act jez 589969937 Problem Migraine without status migr ainosus, not intractable, unspecified migraine type G43.909 Active 25959783 Problem S/P AVR (aortic valve replacement) Z95.2 Activ e 3987432271959 Problem Left-sided low back pain wit h left-sided sciatica, unspecified chronicity M54.42 Active 135469298 Problem Hx of pulmonary embolus Z86.711 Active 51216085 7 Problem Seasonal allergic rhinitis, unspecified trigger J3 0.2 Active 463510114 Problem Gastroesophageal reflux disease, esophagitis pre sence not specified K21.9 Active 052124605 Problem Microscopic hematuria R31.29 Active 231804582 Problem Acute right-sided low back pain with right-sided sciatica M54.41 Active 516707110 Problem Drug-induced polyneuropathy G62.0 Active 7339 009 Problem Mixed stress and urge urinary incontinence N39.46 Active 897998007 Problem Intestinal malabsorption, unspecified type K90.9 Active 813581576 Problem Vitamin D deficiency E55.9 Active 82821876 Problem Urinary incontinence R32 Active 756124438 Problem Essential hypertension I10 Active 18050819 Problem RLS (restless legs syndrome) G25.81 Active 329 09538 Problem Post-traumatic stress disorder, unspecified F43.10 Active 35626554 Problem Generalized anxiety disorder F41.1 Active 218 18069 Problem Major depressive disorder, recurrent, moderate F33 .1 Active 417245589 Problem Lumbago with sciatica, right side M54.41 Active 835646143 ALLERGIES Allergen (clinical drug ingredient) Drug/Non Drug Allergy do cumented on EMR Reaction Allergy Type Onset Date Status tetracycline Tetracycline HCl([facility] Code:[address]-07) Rash Drug Allergy Active penicillin V Penicillin V Potassium(ND Code:[address]-15) Rash Drug Allergy Active morphine Morphine Sulfate(NDC Code:[address]-55) IV = BURNING AND ITCHING BUT CAN TAKE WITH BENADRYL Drug Allergy Active duracef Rash Non Drug Allergy Active erythromycin Erythromycin(NDC Code:[address]-89) Rash Drug All ergy Active fentanyl Fentanyl(NDC Code:[address]-85) itching "I want to rip my skin off" Drug Allergy Active vancomycin Vancomycin HCl(ND Code:[address]-44) i tching "I want to rip my skin off" Drug Allergy Active Adhesive Bandages rash,blisters Drug Allergy Ac tive Levaquin IV pruritis, redness Drug Allergy Ac tive sulfamethoxazole / trimethoprim Bactrim(ND Code:[address]-65) Anaphylaxis Drug Allergy Active ENCOUNTERS from 1955 to 2020-05-26 Encounter Location Date Provider Diagnosis [facility] [address] [place] [address] May Merlin Marsh Kidney stones N20.0 and Urinary incontin ence R32 IMMUNIZATIONS Vaccine Route Administration Date Status [...] Language: Question Answer Notes Languages spoken: Turkish Mormon: Question Answer Notes Mormon 33 None Drug and Alcohol Question Answer Notes Total Score: 0 Interpretation: No problems reported BMI Care Goal Follow-Up Question Answer Notes Above Normal BMI Follow-Up Dietary management educatio n, guidance, and counseling Tobacco Use: Question Answer Notes Are you a: never smoker REASON FOR REFERRAL No Information VITAL SIGNS Weight 407 lbs May, Height 64 in May, BMI 69.85 kg/m2 May, Heart Rate 57 /min May, Respiratory Rate 20 /min May, Temperature 98.5 degrees Fahrenheit May, Oximetry 98% May, Blood pressure systolic 122 mm Hg May, Blood pressure diastolic 60 mm Hg May, MEDICATIONS Medication SIG (Take, [...] tablet Orally Once a day Active Nystatin 376065 UNIT/GM 1 to affected area External ly [...] day Jul, Active PROCEDURES No Information RESULTS Component Value Reference Range UA URINALYSIS Reviewed date:05/25/2020 13:05:20 Interpretation: Performing Lab:[facility] [address] [address] , ,[place] [address] URINE CULTURE Reviewed date:05/25/2020 13:05:09 Interpretation: Performing Lab:[facility] [address] [facility] [address] , ,[place] [address] REASON FOR VISIT fu MEDICAL (GENERAL) HISTORY Type Description Date Medical [...] NCOG in p ast-last imaging at [facility] Medical History DeQuervains tenosynovitis Medical [...] to infection. Follows with Dr. Paul in [place] Medical History Ppumlonary embolism, unprovoked - 2018; [...] 2006 2006 Surgical History ESWL x 5 4890-2808 Surgical History Hernia repair with mesh Dr Virgen - Kasey sirvastava 12/21/2010 Surgical History L ureteroscopy/laser lithotripsy 2011 Surgical History Revision for MRSA wound infection and re moval of mesh 11/21/2011 Surgical History redo of mesh - [place] 01/2012 Surgical History ESWL- Maximo 01/01 Surgical [...] Valve replacement 08/2017 Hospitalization History PE at [facility] 09/21/2018 Goals Section No Information Health Concerns No Information MEDICAL EQUIPMENT No Information MENTAL STATUS No Information FUNCTIONAL STATUS No Information ASSESSMENTS Encounter Date Diagnosis Assessment Notes Treatment Notes Treatm ent Clinical Notes May, Kidney stones (ICD-10 - N20.0) - send urine for UA and culture - will call w/ results - if culture negative -> start myrbetriq and f/u in 6 wks May, Urinary incontinence (ICD-10 - R32) PLAN OF TREATMENT Treatment Notes Assessment Notes Clinical Notes Kidney stones - send urine for UA and culture- will call w/ results- if culture negative -> start myrbetriq and f/u in 6 wks Next Appt Details we will call the patient Reason: Provider Name:Barrett Flores, 2020-05-27 11:00:00 AM, [address] [place], [address], Provider Name:Gaetano Quezada, 2020-06-05 11:0 0:00 AM, [address] [place] [address], [address] Provider Name:Rufina Chong, 2020-07-06 10:30:00 AM, [address] [place] [address], [address], Provider Name:Merlin Marsh, 02:45:00 PM, [address], [place], [address], Insurance Providers Payer Name Payer Address Payer Phone Insured Name Patient Relati onship to Insured Coverage Start Date Coverage End Date [facility] [address] [facility] [phone] [address] MEDICAID [facility] [address] [facility] [address] [address] self
--- OUTSIDE RECORDS SUMMARY | 2020-06-29 23:21 | CCD ---
Author Author [facility] Organization [facility] Address Unknown Phone Unavailable Care Team Providers Care Crib Pad Maker Name Role Phone Barrett Flores Unavailable PROBLEMS Type Condition ICD9-CM Code LAX44-OU Code Onset Dates Condition S tatus SNOMED Code Notes Problem Sleep apnea, unspecified G47.30 Active 4972463 6 Problem Anemia in other chronic diseases classified elsewhere D63.8 Active 543581881 Problem Morbid (severe) obesity due to excess calories E66 .01 Active 459663613 Problem Kidney stones N20.0 Active 52017499 Problem Bariatric surgery status Z98.84 Active 1899390 06 Problem Vitamin D deficiency E55.9 Active 02195131 Problem Essential hypertension I10 Active 08582486 Problem Drug-induced polyneuropathy G62.0 Active 7339 009 Problem Acute right-sided low back pain with right-sided sciatica M54.41 Active 093765764 Problem History of MRSA infection Z86.14 Active 962839 000 Problem S/P AVR (aortic valve replacement) Z95.2 Activ e 8719820341156 Problem Left-sided low back pain wit h left-sided sciatica, unspecified chronicity M54.42 Active 325999166 Problem Hx of pulmonary embolus Z86.711 Active 62427467 7 Problem Seasonal allergic rhinitis, unspecified trigger J3 0.2 Active 354229064 Problem Gastroesophageal reflux disease, esophagitis pre sence not specified K21.9 Active 035386227 Problem Microscopic hematuria R31.29 Active 070932588 Problem Other chronic pain G89.29 Active 82268417 Problem Body mass index (BMI) 60.0-69.9, adult Z68.44 A ctive 673140228 Problem Mixed stress and urge urinary incontinence N39.46 Active 746176865 Problem Post-traumatic stress disorder, unspecified F43.10 Active 99520640 Problem Generalized anxiety disorder F41.1 Active 218 12469 Problem Spondylosis without myelopathy or radiculopathy, lumbosacral region M47.817 Active 89238616 Problem Migraine without status migr ainosus, not intractable, unspecified migraine type G43.909 Active 23826704 Problem Spondylosis without myelopathy or radiculopathy, lumbar region M47.816 Active 244229598 Problem RLS (restless legs syndrome) G25.81 Active 329 07725 Problem Gouty arthritis of toe of right foot M10.9 Act jez 727081845 Problem Major depressive disorder, recurrent, moderate F33 .1 Active 196678658 Problem Lumbago with sciatica, right side M54.41 Active 649086829 Problem Intestinal malabsorption, unspecified type K90.9 Active 406365104 Problem Urinary incontinence R32 Active 748926434 ALLERGIES Allergen (clinical drug ingredient) Drug/Non Drug Allergy do cumented on EMR Reaction Allergy Type Onset Date Status tetracycline Tetracycline HCl(ND Code:[address]-50) Rash Drug Allergy Active penicillin V Penicillin V Potassium(NDC Code:[address]-25) Rash Drug Allergy Active morphine Morphine Sulfate(NDC Code:[address]-33) IV = BURNING AND ITCHING BUT CAN TAKE WITH BENADRYL Drug Allergy Active duracef Rash Non Drug Allergy Active erythromycin Erythromycin(NDC Code:[address]-40) Rash Drug All ergy Active fentanyl Fentanyl(NDC Code:[address]-33) itching "I want to rip my skin off" Drug Allergy Active vancomycin Vancomycin HCl(NDC Code:[address]-23) i tching "I want to rip my skin off" Drug Allergy Active Adhesive Bandages rash,blisters Drug Allergy Ac tive Levaquin IV pruritis, redness Drug Allergy Ac tive sulfamethoxazole / trimethoprim Bactrim(NDC Code:[address]-27) Anaphylaxis Drug Allergy Active ENCOUNTERS from 1955 to 2020-05-27 Encounter Location Date Provider Diagnosis [facility] [address] [place] [id number] May, Barrett Mark IMMUNIZATIONS Vaccine Route Administration Date Status Influenza [...] Education Language: Question Answer Notes Languages spoken: Italian Rastafari: Question Answer Notes Rastafari 33 None Drug and Alcohol Question Answer [...] MG 1 capsule Orally Daily Jun, Active Calcium 500 + D3 500-200 MG-UNIT [...] Orally three times a day Feb Active Tab-A-Tyler - 1 tablet Orally Once a day Active Vitamin C 500 MG 1 tablet Orally Once a day Active Magnesium 400 MG 1 tablet with a meal Orally Once a day Active Myrbetriq 50 MG 1 tablet Orally Once a day May, Active Nystatin 580662 UNIT/GM 1 to affected area External ly Twice a day as needed for 90 days Jan, Active Cymbalta 60 MG 1 capsule Orally Once a day Jul, Active Tylenol Arthritis Pain 650 mg 2 tablets oral every bedtime Active Acetaminophen-Codeine #4 300-60 MG 1 tablet as needed Orally every 6 hrs prn for pain mdd4 #45 tabs shoild last 30 days for 30 Days Apr, Active Vitamin B-12 2500 MCG 1 tablet Sublingual Daily Active Metoprolol Tartrate 25 MG 1 tablet with food Orally Twice a day Active PROCEDURES No Information RESULTS No Results REASON FOR VISIT pre-procedure call MEDICAL (GENERAL) HISTORY Type Description Date Medical [...] - [facility]COG in p ast-last imaging at [facility] Medical History DeQuervains tenosynovitis Medical History [...] to infection. Follows with Dr. Paul in [place] Medical History Ppumlonary embolism, unprovoked - 2018; [...] 2006 2006 Surgical History ESWL x 5 8232-8769 Surgical History Hernia repair with mesh Dr Promise Robertson 12/21/2010 Surgical History L ureteroscopy/laser lithotripsy 2011 Surgical History Revision for MRSA wound infection and re moval of mesh 11/21/2011 Surgical History redo of mesh - [place] 01/2012 Surgical History ESWL- [place] 01/01 Surgical [...] Valve replacement 08/2017 Hospitalization History PE at [facility] 09/21/2018 Goals Section No Information Health Concerns No Information MEDICAL EQUIPMENT No Information MENTAL STATUS No Information FUNCTIONAL STATUS No Information ASSESSMENTS No Information PLAN OF TREATMENT Next Appt Details Provider Name:Gaetano Quezada, 2020-06-05 11:0 0:00 AM, [address] [place], [address] Provider Name:Leia Valdes, 2020-06-10 10 :00:00 AM, [address] [place], [address], Provider Name:Rufina Chong, 2020-07-06 10:30:00 AM, [address] [place], [address], Provider Name:Merlin Marsh, 02:45:00 PM, [address], [place], [address], Insurance Providers Payer Name Payer Address Payer Phone Insured Name Patient Relati onship to Insured Coverage Start Date Coverage End Date [facility] [address] [facility] [id number] [address]ARR MEDICAID [employer] [address] [facility] [address] [address]
--- OUTSIDE RECORDS SUMMARY | 2020-06-29 23:22 | CCD ---
Author Author [facility] Organization [facility] Address Unknown Phone Unavailable Care Team Providers Care Boot And Saddle Repair Person Name Role Phone Merlin Marsh Unavailable PROBLEMS Type Condition ICD9-CM Code FXR13-FE Code Onset Dates Condition S tatus SNOMED Code Notes Problem Low back pain M54.5 Active 067113031 Problem Essential hypertension I10 Active 77488361 Problem Kidney stones N20.0 Active 88669547 Problem RLS (restless legs syndrome) G25.81 Active 329 07098 Problem Vitamin D deficiency E55.9 Active 32955728 Problem Migraine without status migr ainosus, not intractable, unspecified migraine type G43.909 Active 03502909 Problem Depression with anxiety F41.8 Active 59057256 6 Problem Drug-induced polyneuropathy G62.0 Active 7339 009 Problem Anemia in other chronic diseases classified elsewhere D63.8 Active 670203106 Problem Locking of left knee M23.92 Active 28622676491 680013 Problem Morbid (severe) obesity due to excess calories E66 .01 Active 967042341 Problem Bariatric surgery status Z98.84 Active 2625872 06 Problem Other specified polyneuropathies G62.89 Active 57164346 Problem Seasonal allergic rhinitis, unspecified trigger J3 0.2 Active 070843831 Problem S/P AVR (aortic valve replacement) Z95.2 Activ e 9707678056946 Problem Microscopic hematuria R31.29 Active 739861445 Problem Hx of pulmonary embolus Z86.711 Active 62469197 7 Problem Body mass index (BMI) 60.0-69.9, adult Z68.44 A ctive 229737143 Problem History of MRSA infection Z86.14 Active 243812 000 Problem Gastroesophageal reflux disease, esophagitis pre sence not specified K21.9 Active 324191937 Problem Acute right-sided low back pain with right-sided sciatica M54.41 Active 716387713 Problem Migraine, unspecified, not intractable, without status migrainosus G43.909 Active 96612957 Problem Other chronic pain G89.29 Active 73816321 Problem Sleep apnea, unspecified G47.30 Active 0572119 6 Problem Chronic sciatica of right side M54.31 Active 3 76297656 Problem Mixed stress and urge urinary incontinence N39.46 Active 960246231 Problem Unspecified urinary incontinence R32 Active 32066737 Problem Major depressive disorder, recurrent, moderate F33 .1 Active 262430202 Problem Left-sided low back pain wit h left-sided sciatica, unspecified chronicity M54.42 Active 748545772 Problem Lumbago with sciatica, right side M54.41 Active 892064519 Problem Gouty arthritis of toe of right foot M10.9 Act jez 350400666 Problem Abnormal mammogram R92.8 Active 109592807 Problem Full incontinence of feces R15.9 Active 77023 2518533791 Problem Fecal urgency R15.2 Active 14097529 Problem Post-traumatic stress disorder, unspecified F43.10 Active 66004992 Problem Generalized anxiety disorder F41.1 Active 218 54160 ALLERGIES Allergen (clinical drug ingredient) Drug/Non Drug Allergy do cumented on EMR Reaction Allergy Type Onset Date Status tetracycline Tetracycline HCl(NDC Code:[address]-13) Rash Drug Allergy Active penicillin V Penicillin V Potassium(NDC Code:[address]-60) Rash Drug Allergy Active morphine Morphine Sulfate(NDC Code:[address]-03) IV = BURNING AND ITCHING BUT CAN TAKE WITH BENADRYL Drug Allergy Active duracef Rash Non Drug Allergy Active erythromycin Erythromycin(NDC Code:[address]-74) Rash Drug All ergy Active fentanyl Fentanyl(NDC Code:[address]-21) itching "I want to rip my skin off" Drug Allergy Active vancomycin Vancomycin HCl(NDC Code:[address]-62) i tching "I want to rip my skin off" Drug Allergy Active Adhesive Bandages rash,blisters Drug Allergy Ac tive Levaquin IV pruritis, redness Drug Allergy Ac tive sulfamethoxazole / trimethoprim Bactrim([facility] Code:[address]-25) Anaphylaxis Drug Allergy Active ENCOUNTERS from 1955 to 2020-04-27 Encounter Location Date Provider Diagnosis [facility] [address] [place] [address] Apr Merlin Marsh IMMUNIZATIONS Vaccine Route Administration Date [...] Education Language: Question Answer Notes Languages spoken: Maldivian Taoism: Question Answer Notes Taoism 33 None Drug and Alcohol Question Answer [...] 2 tablets oral every bedtime Active Nystatin 437075 UNIT/GM 1 to affected area External ly [...] Information RESULTS No Results REASON FOR VISIT Missed Appt. MEDICAL (GENERAL) HISTORY Type Description Date Medical [...] - [facility]COG in p ast-last imaging at [facility] Medical History DeQuervains tenosynovitis Medical History [...] to infection. Follows with Dr. Paul in [place] Medical History Ppumlonary embolism, unprovoked - 2018; [...] 2006 2006 Surgical History ESWL x 5 7163-0414 Surgical History Hernia repair with mesh Dr Virgen - Kasey srivastava 12/21/2010 Surgical History L ureteroscopy/laser lithotripsy 2011 Surgical History Revision for MRSA wound infection and re moval of mesh 11/21/2011 Surgical History redo of mesh - [place] 01/2012 Surgical History ESWL- [place] 01/01 Surgical [...] Valve replacement 08/2017 Hospitalization History PE at [facility] 09/21/2018 Goals Section No Information Health Concerns No Information MEDICAL EQUIPMENT No Information MENTAL STATUS No Information FUNCTIONAL STATUS No Information ASSESSMENTS No Information PLAN OF TREATMENT Next Appt Details Provider Name:Rufina Chong, 2020-05-06 08:15:00 AM, [address] [place] [address], [address], Provider Name:Gaetano Quezada 2020-05-14 08:0 0:00 AM, [address] [place] [address], [phone] Provider Name:Merlin Marsh, 08:00:00 AM, [address], [place], [address], Provider Name:Rufina Chong, 2020-05-21 01:45:00 PM, [address] [place], [address], Provider Name:Barrett Flores, 2020-05-27 11:00:00 AM, [address] [place], [address], Insurance Providers Payer Name Payer Address Payer Phone Insured Name Patient Relati onship to Insured Coverage Start Date Coverage End Date MEDICAID [employer] [address] [facility] [address] [address] [facility] [address] [facility] [phone] [address] STARR
--- OUTSIDE RECORDS SUMMARY | 2020-06-29 23:22 | CCD ---
Author Author [facility] Organization [facility] Address Unknown Phone Unavailable Care Team Providers Care Metal Smelter Name Role Phone Rufina Chong Unavailable PROBLEMS Type Condition ICD9-CM Code CBR19-KQ Code Onset Dates Condition S tatus SNOMED Code Notes Problem Low back pain M54.5 Active 225467103 Problem Essential hypertension I10 Active 45988600 Problem Kidney stones N20.0 Active 37076630 Problem RLS (restless legs syndrome) G25.81 Active 329 76910 Problem Vitamin D deficiency E55.9 Active 49538477 Problem Migraine without status migr ainosus, not intractable, unspecified migraine type G43.909 Active 55366433 Problem Depression with anxiety F41.8 Active 49819515 6 Problem Drug-induced polyneuropathy G62.0 Active 7339 009 Problem Anemia in other chronic diseases classified elsewhere D63.8 Active 619601939 Problem Locking of left knee M23.92 Active 22661722574 570122 Problem Morbid (severe) obesity due to excess calories E66 .01 Active 358885893 Problem Bariatric surgery status Z98.84 Active 1262118 06 Problem Other specified polyneuropathies G62.89 Active 20702432 Problem Seasonal allergic rhinitis, unspecified trigger J3 0.2 Active 285718377 Problem S/P AVR (aortic valve replacement) Z95.2 Activ e 4966551341316 Problem Microscopic hematuria R31.29 Active 259851648 Problem Hx of pulmonary embolus Z86.711 Active 11699641 7 Problem Body mass index (BMI) 60.0-69.9, adult Z68.44 A ctive 805106027 Problem History of MRSA infection Z86.14 Active 341622 000 Problem Gastroesophageal reflux disease, esophagitis pre sence not specified K21.9 Active 058224378 Problem Acute right-sided low back pain with right-sided sciatica M54.41 Active 982062426 Problem Migraine, unspecified, not intractable, without status migrainosus G43.909 Active 03100717 Problem Other chronic pain G89.29 Active 68675245 Problem Sleep apnea, unspecified G47.30 Active 5877951 6 Problem Chronic sciatica of right side M54.31 Active 3 48372821 Problem Mixed stress and urge urinary incontinence N39.46 Active 382653898 Problem Unspecified urinary incontinence R32 Active 85432935 Problem Major depressive disorder, recurrent, moderate F33 .1 Active 667950211 Problem Left-sided low back pain wit h left-sided sciatica, unspecified chronicity M54.42 Active 722186105 Problem Lumbago with sciatica, right side M54.41 Active 819564973 Problem Gouty arthritis of toe of right foot M10.9 Act jez 557484977 Problem Abnormal mammogram R92.8 Active 871818445 Problem Full incontinence of feces R15.9 Active 10207 7853144740 Problem Fecal urgency R15.2 Active 42837253 Problem Post-traumatic stress disorder, unspecified F43.10 Active 12707510 Problem Generalized anxiety disorder F41.1 Active 218 60992 ALLERGIES Allergen (clinical drug ingredient) Drug/Non Drug Allergy do cumented on EMR Reaction Allergy Type Onset Date Status tetracycline Tetracycline HCl(NDC Code:[address]-11) Rash Drug Allergy Active penicillin V Penicillin V Potassium(NDC Code:[address]-54) Rash Drug Allergy Active morphine Morphine Sulfate(NDC Code:[address]-48) IV = BURNING AND ITCHING BUT CAN TAKE WITH BENADRYL Drug Allergy Active duracef Rash Non Drug Allergy Active erythromycin Erythromycin(NDC Code:[address]-36) Rash Drug All ergy Active fentanyl Fentanyl(NDC Code:[address]-52) itching "I want to rip my skin off" Drug Allergy Active vancomycin Vancomycin HCl(NDC Code:[address]-76) i tching "I want to rip my skin off" Drug Allergy Active Adhesive Bandages rash,blisters Drug Allergy Ac tive Levaquin IV pruritis, redness Drug Allergy Ac tive sulfamethoxazole / trimethoprim Bactrim([facility] Code:[address]-12) Anaphylaxis Drug Allergy Active ENCOUNTERS from 1955 to 2020-04-01 Encounter Location Date Provider Diagnosis [facility] [place] [address] Mar, Rufina Chong RLS (restless legs syndrome) G25.81 IMMUNIZATIONS Vaccine [...] Education Language: Question Answer Notes Languages spoken: [place] Citizen Hinduism: Question Answer Notes Hinduism 33 None Drug and Alcohol Question Answer [...] Start Da te End Date Status Vitamin B-12 2500 MCG 1 tablet Sublingual Daily Active Metoprolol Tartrate 25 MG 1 tablet with food Orally Twice a day Active Folic Acid 1 MG 1 tablet Orally Once a day for 90 Not-Taking Ropinirole HCl 5 MG 1 tab Orally before bedtime for 90 day(s) Active Cymbalta 60 MG 1 capsule Orally Once a day Jul, Active Gabapentin 600 MG 1 tablet Orally three times a day Feb Active Lisinopril-Hydrochlorothiazide 10-12.5 MG 1 tablet Orally Once a day Active Tylenol Arthritis Pain 650 mg 2 tablets oral every bedtime Active Calcium 500 + D3 500-200 MG-UNIT 1 tablet with a meal Orally Once a d ay Active Amoxicillin 500 MG 4 capsules 30-60 min prior t o dental procedure Orally Daily for 1 days Feb, Active Cymbalta 30 MG 1 capsule Orally Daily Jun, Active Tab-A-Tyler - 1 tablet Orally Once a day Active Triamcinolone Acetonide 0.1 % 1 application Externally Twice a d ay Aug, Active Tylenol with Codeine #4 1 tablet orally every 6 hours as needed MDD 4 Active Vitamin D3 2000 UNIT 1 capsule Orally Once a day Active Wellbutrin XL 150 MG 1 tablet in the morning Orally Once a day Feb, Active Magnesium 400 MG 1 tablet with a meal Orally Once a day Active Acetaminophen 325 MG 2 tablet as needed Orally every 6 hrs Not-Taking Eliquis 0.5 tab (5mg) orally Twice a day Not-Taking Eliquis 5 MG 1/2 tablet Orally twice a day Active Nystatin 209025 UNIT/GM 1 to affected area External ly Twice a day as needed for 90 days Jan, Active Vitamin C 500 MG 1 tablet Orally Once a day Active PROCEDURES No Information RESULTS No Results REASON FOR VISIT Requip, Triamcinolone cream MEDICAL (GENERAL) HISTORY Type Description Date Medical [...] - [facility]COG in p ast-last imaging at [facility] Medical History DeQuervains tenosynovitis Medical History [...] to infection. Follows with Dr. Paul in [place] Medical History Ppumlonary embolism, unprovoked - 2018; [...] 2006 2006 Surgical History ESWL x 5 5169-3086 Surgical History Hernia repair with mesh Dr Virgen - Kasey srivastava 12/21/2010 Surgical History L ureteroscopy/laser lithotripsy 2011 Surgical History Revision for MRSA wound infection and re moval of mesh 11/21/2011 Surgical History redo of mesh - [place] 01/2012 Surgical History ESWL- Maximo 01/01 Surgical [...] Valve replacement 08/2017 Hospitalization History PE at [facility] 09/21/2018 Goals Section No Information Health Concerns No Information MEDICAL EQUIPMENT No Information MENTAL STATUS No Information FUNCTIONAL STATUS No Information ASSESSMENTS Encounter Date Diagnosis Assessment Notes Treatment Notes Treatm ent Clinical Notes Mar, RLS (restless legs syndrome) (ICD-10 - G25.81) PLAN OF TREATMENT Medication Medication Name Sig Start Date Stop Date Ropinirole HCl 5 MG 1 tab Orally before bedtime for 90 day(s) Triamcinolone Acetonide 0.1 % 1 application Externally Twice a d ay Aug, Next Appt Details Provider Name:Gaetano Quezada, 2020-04-08 09:0 0:00 AM, [address] [place], [address] Provider Name:Leia Valdes, 2020-04-08 02 :30:00 PM, [address] [place], [address], Provider Name:Merlin Marsh, 08:00:00 AM, [address] [place], [address], Provider Name:Rufinacarola Chong, 2020-05-06 08:15:00 AM, [address] [place], [address], Insurance Providers Payer Name Payer Address Payer Phone Insured Name Patient Relati onship to Insured Coverage Start Date Coverage End Date [facility] [address] [facility] [id number] [address]ARR MEDICAID [facility] [address] [facility] [address] [address]
--- OUTSIDE RECORDS SUMMARY | 2020-06-29 23:22 | CCD ---
Author Author [facility] Organization [facility] em[facility] Address Unknown Phone Unavailable Care Team Providers Care Riding Coach Name Role Phone Barrett Flores Unavailable PROBLEMS Type Condition ICD9-CM Code [id number] Code Onset Dates Condition S tatus SNOMED Code Notes Problem Low back pain M54.5 Active 527131343 Problem Essential hypertension I10 Active 09242059 Problem Kidney stones N20.0 Active 11826538 Problem RLS (restless legs syndrome) G25.81 Active 329 42153 Problem Vitamin D deficiency E55.9 Active 92402382 Problem Migraine without status migr ainosus, not intractable, unspecified migraine type G43.909 Active 94765867 Problem Depression with anxiety F41.8 Active 98927654 6 Problem Drug-induced polyneuropathy G62.0 Active 7339 009 Problem Anemia in other chronic diseases classified elsewhere D63.8 Active 660764621 Problem Locking of left knee M23.92 Active 56555469065 182934 Problem Morbid (severe) obesity due to excess calories E66 .01 Active 687478348 Problem Bariatric surgery status Z98.84 Active 1181886 06 Problem Other specified polyneuropathies G62.89 Active 04274202 Problem Seasonal allergic rhinitis, unspecified trigger J3 0.2 Active 970248049 Problem S/P AVR (aortic valve replacement) Z95.2 Activ e 2204177113383 Problem Microscopic hematuria R31.29 Active 473198565 Problem Hx of pulmonary embolus Z86.711 Active 53154514 7 Problem Body mass index (BMI) 60.0-69.9, adult Z68.44 A ctive 195561634 Problem History of MRSA infection Z86.14 Active 935125 000 Problem Gastroesophageal reflux disease, esophagitis pre sence not specified K21.9 Active 193705792 Problem Acute right-sided low back pain with right-sided sciatica M54.41 Active 084796454 Problem Migraine, unspecified, not intractable, without status migrainosus G43.909 Active 70904695 Problem Other chronic pain G89.29 Active 01286634 Problem Sleep apnea, unspecified G47.30 Active 3233890 6 Problem Chronic sciatica of right side M54.31 Active 3 42295977 Problem Mixed stress and urge urinary incontinence N39.46 Active 878691400 Problem Unspecified urinary incontinence R32 Active 13457227 Problem Major depressive disorder, recurrent, moderate F33 .1 Active 631643902 Problem Left-sided low back pain wit h left-sided sciatica, unspecified chronicity M54.42 Active 715102297 Problem Lumbago with sciatica, right side M54.41 Active 353711620 Problem Gouty arthritis of toe of right foot M10.9 Act jez 466721623 Problem Abnormal mammogram R92.8 Active 362875485 Problem Full incontinence of feces R15.9 Active 53151 7325037299 Problem Fecal urgency R15.2 Active 53516894 Problem Post-traumatic stress disorder, unspecified F43.10 Active 87090456 Problem Generalized anxiety disorder F41.1 Active 218 18155 ALLERGIES Allergen (clinical drug ingredient) Drug/Non Drug Allergy do cumented on EMR Reaction Allergy Type Onset Date Status tetracycline Tetracycline HCl(NDC Code:[address]-32) Rash Drug Allergy Active penicillin V Penicillin V Potassium(NDC Code:[address]-18) Rash Drug Allergy Active morphine Morphine Sulfate(NDC Code:[address]-09) IV = BURNING AND ITCHING BUT CAN TAKE WITH BENADRYL Drug Allergy Active duracef Rash Non Drug Allergy Active erythromycin Erythromycin(NDC Code:[address]-04) Rash Drug All ergy Active fentanyl Fentanyl(NDC Code:[address]-25) itching "I want to rip my skin off" Drug Allergy Active vancomycin Vancomycin HCl(NDC Code:[address]-46) i tching "I want to rip my skin off" Drug Allergy Active Adhesive Bandages rash,blisters Drug Allergy Ac tive Levaquin IV pruritis, redness Drug Allergy Ac tive sulfamethoxazole / trimethoprim Bactrim([facility] Code:[address]-59) Anaphylaxis Drug Allergy Active ENCOUNTERS from 1955 to 2020-03-30 Encounter Location Date Provider Diagnosis [facility] [address] [place] [phone] Mar, Barrett Flores Intervertebral disc disorders with radic ulopathy, lumbar region M51.16 IMMUNIZATIONS Vaccine Route Administration Date Status Influenza [...] Education Language: Question Answer Notes Languages spoken: Latvian Hindu: Question Answer Notes Hindu 33 None Drug and Alcohol Question Answer Notes Total Score: 0 Interpretation: No problems reported BMI Care Goal Follow-Up Question Answer Notes Above Normal BMI Follow-Up Dietary management educatio n, guidance, and counseling Tobacco Use: Question Answer Notes Are you a: never smoker REASON FOR REFERRAL No Information VITAL SIGNS Weight 406.8 lbs Mar, Height 64 in Mar, BMI 69.82 kg/m2 Mar, Heart Rate 78 /min Mar, Respiratory Rate 20 /min Mar, Temperature 97.0 degrees Fahrenheit Mar, Oximetry 99% Mar, Blood pressure systolic 172 mm Hg Mar, Blood pressure diastolic 114 mm Hg Mar, MEDICATIONS Medication SIG (Take, Route, Frequency, Duration) Notes Start Da te End Date Status Cymbalta 60 MG 1 capsule Orally Once a day Jul, Active Vitamin B-12 2500 MCG 1 tablet Sublingual Daily Active Folic Acid 1 MG 1 tablet Orally Once a day for 90 Not-Taking Tab-A-Tyler - 1 tablet Orally Once a day Active Ropinirole HCl 5 MG 1 tab Orally before bedtime Active Calcium 500 + D3 500-200 MG-UNIT 1 tablet with a meal Orally Once a d ay Active Lisinopril-Hydrochlorothiazide 10-12.5 MG 1 tablet Orally Once a day Active Amoxicillin 500 MG 4 capsules 30-60 min prior t o dental procedure Orally Daily for 1 days Feb, Active Tylenol Arthritis Pain 650 mg 2 tablets oral every bedtime Active Eliquis 5 MG 1/2 tablet Orally twice a day Active Magnesium 400 MG 1 tablet with a meal Orally Once a day Active Cymbalta 30 MG 1 capsule Orally Daily Jun, Active Gabapentin 600 MG 1 tablet Orally [...] 6 hours as needed MDD 4 Active Acetaminophen 325 MG 2 tablet as needed Orally every 6 hrs Not-Taking Eliquis 0.5 tab (5mg) orally Twice a day Not-Taking Triamcinolone Acetonide 0.1 % 1 application Externally Twice a d ay Aug, Active Nystatin 958361 UNIT/GM 1 to affected area External ly Twice a day as needed for 90 days Jan, Active Metoprolol Tartrate 25 MG 1 tablet with food Orally Twice a day Active PROCEDURES Procedure Date Ordered Result Body Site Saline Lock 2020-03-23 N/A Medication: Valium Tab 10mg Orally (Diazepam) 2020-03-23 N/ A Medication: Paradise Tablet 5mg/325mg Orally (Hydrocodone /Acetaminophen) 2020-03-23 N/A RESULTS No Results REASON FOR VISIT L4/5 LESI MEDICAL (GENERAL) HISTORY Type Description Date Medical [...] in p ast-last imaging at [facility] Medical History DeQuervains tenosynovitis Medical History H/o [...] to infection. Follows with Dr. Paul in [place] Medical History Ppumlonary embolism, unprovoked - 2018; [...] 2006 2006 Surgical History ESWL x 5 [id number] Surgical History Hernia repair with mesh Dr Promise oRbertson 12/21/2010 Surgical History L ureteroscopy/laser lithotripsy 2011 [...] Valve replacement 08/2017 Hospitalization History PE at [facility] 09/21/2018 Goals Section No Information Health Concerns No Information MEDICAL EQUIPMENT No Information MENTAL STATUS No Information FUNCTIONAL STATUS No Information ASSESSMENTS Encounter Date Diagnosis Assessment Notes Treatment Notes Treatm ent Clinical Notes Mar, Intervertebral disc disorder s with radiculopathy, lumbar region (ICD-10 - M51.16) Mar, Other 03/20/20 Carola Chu PLAN OF TREATMENT Treatment Notes Test Name Order Date [facility] FLUORO GUIDE SPINE INJECTION (PAIN) 2020-03-30 Next Appt Details 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 with NUCLEAR PLANT OPERATOR Reason:Post LESI L4-L5 Provider Name:Leia Valdes, 2020-04-06 09 :45:00 AM, [address] [place], [address], Provider Name:Gaetano Quezada, 2020-04-08 09:0 0:00 AM, [address] [place] [address], [phone] Provider Name:Merlin Marsh, 08:00:00 AM, [address], [place], [address], Provider Name:Rufina Chong, 2020-05-06 08:15:00 AM, [address] [place] [address], [phone], Follow Up:Follow up with [facility] LESI L4-L5 Insurance Providers Payer Name Payer Address Payer Phone Insured Name Patient Relati onship to Insured Coverage Start Date Coverage End Date [facility]ICAID [facility] [address] [facility] [id number] [address] [facility] [id number] [facility] [phone] [address] STARR
--- OUTSIDE RECORDS SUMMARY | 2020-06-29 23:22 | CCD ---
Author Author [facility] Organization [facility] em[facility] Address Unknown Phone Unavailable Care Team Providers Care Aircraft Skin Burnisher Name Role Phone Leia Valdes Unavailable PROBLEMS Type Condition ICD9-CM Code [id number] Code Onset Dates Condition S tatus SNOMED Code Notes Problem Low back pain M54.5 Active 046273500 Problem Essential hypertension I10 Active 59964388 Problem Kidney stones N20.0 Active 20420908 Problem RLS (restless legs syndrome) G25.81 Active 329 36024 Problem Vitamin D deficiency E55.9 Active 30603286 Problem Migraine without status migr ainosus, not intractable, unspecified migraine type G43.909 Active 43921853 Problem Depression with anxiety F41.8 Active 70097393 6 Problem Drug-induced polyneuropathy G62.0 Active 7339 009 Problem Anemia in other chronic diseases classified elsewhere D63.8 Active 946527782 Problem Locking of left knee M23.92 Active 76062743797 224209 Problem Morbid (severe) obesity due to excess calories E66 .01 Active 543478298 Problem Bariatric surgery status Z98.84 Active 5482005 06 Problem Other specified polyneuropathies G62.89 Active 54491504 Problem Seasonal allergic rhinitis, unspecified trigger J3 0.2 Active 007462546 Problem S/P AVR (aortic valve replacement) Z95.2 Activ e 4870907693231 Problem Microscopic hematuria R31.29 Active 915343753 Problem Hx of pulmonary embolus Z86.711 Active 08480514 7 Problem Body mass index (BMI) 60.0-69.9, adult Z68.44 A ctive 555600619 Problem History of MRSA infection Z86.14 Active 199978 000 Problem Gastroesophageal reflux disease, esophagitis pre sence not specified K21.9 Active 739006348 Problem Acute right-sided low back pain with right-sided sciatica M54.41 Active 464664789 Problem Migraine, unspecified, not intractable, without status migrainosus G43.909 Active 32751032 Problem Other chronic pain G89.29 Active 58851011 Problem Sleep apnea, unspecified G47.30 Active 5497506 6 Problem Chronic sciatica of right side M54.31 Active 3 34412901 Problem Mixed stress and urge urinary incontinence N39.46 Active 706955236 Problem Unspecified urinary incontinence R32 Active 88968282 Problem Major depressive disorder, recurrent, moderate F33 .1 Active 158839116 Problem Left-sided low back pain wit h left-sided sciatica, unspecified chronicity M54.42 Active 818413734 Problem Lumbago with sciatica, right side M54.41 Active 114406711 Problem Gouty arthritis of toe of right foot M10.9 Act jez 460805124 Problem Abnormal mammogram R92.8 Active 981334293 Problem Full incontinence of feces R15.9 Active 17407 5301290610 Problem Fecal urgency R15.2 Active 51796719 Problem Post-traumatic stress disorder, unspecified F43.10 Active 15929438 Problem Generalized anxiety disorder F41.1 Active 218 34217 ALLERGIES Allergen (clinical drug ingredient) Drug/Non Drug Allergy do cumented on EMR Reaction Allergy Type Onset Date Status tetracycline Tetracycline HCl(NDC Code:[address]-16) Rash Drug Allergy Active penicillin V Penicillin V Potassium(NDC Code:[address]-76) Rash Drug Allergy Active morphine Morphine Sulfate(NDC Code:[address]-43) IV = BURNING AND ITCHING BUT CAN TAKE WITH BENADRYL Drug Allergy Active duracef Rash Non Drug Allergy Active erythromycin Erythromycin(NDC Code:[address]-61) Rash Drug All ergy Active fentanyl Fentanyl(NDC Code:[address]-34) itching "I want to rip my skin off" Drug Allergy Active vancomycin Vancomycin HCl(NDC Code:[address]-85) i tching "I want to rip my skin off" Drug Allergy Active Adhesive Bandages rash,blisters Drug Allergy Ac tive Levaquin IV pruritis, redness Drug Allergy Ac tive sulfamethoxazole / trimethoprim Bactrim([facility] Code:[address]-68) Anaphylaxis Drug Allergy Active ENCOUNTERS from 1955 to 2020-04-15 Encounter Location Date Provider Diagnosis [facility] [address] [place] [phone] Mar, Leia Valdes Lumbosacral spinal stenosis M48.07 IMMUNIZATIONS Vaccine Route Administration Date Status Influenza [...] Language: Question Answer Notes Languages spoken: Portuguese Faith: Question Answer Notes Faith 33 None Drug and Alcohol Question Answer Notes Total Score: 0 Interpretation: No problems reported BMI Care Goal Follow-Up Question Answer Notes Above Normal BMI Follow-Up Dietary management educatio n, guidance, and counseling Tobacco Use: Question Answer Notes Are you a: never smoker REASON FOR REFERRAL No Information VITAL SIGNS Weight 401.6 lbs Mar, Height 64 in Mar, BMI 68.93 kg/m2 Mar, Heart Rate 85 /min Mar, Respiratory Rate 20 /min Mar, Temperature 96.4 degrees Fahrenheit Mar, Oximetry 97% Mar, Blood pressure systolic 199 mm Hg Mar, Blood pressure diastolic 98 mm Hg Mar, MEDICATIONS Medication SIG (Take, [...] 2 tablets oral every bedtime Active Nystatin 194163 UNIT/GM 1 to affected area External ly [...] Information RESULTS No Results REASON FOR VISIT Post LESI MEDICAL (GENERAL) HISTORY Type Description Date [...] - [employer] in p ast-last imaging at [facility] Medical History DeQuervains tenosynovitis Medical History H/o [...] to infection. Follows with Dr. Paul in [place] Medical History Ppumlonary embolism, unprovoked - 2018; [...] 2006 2006 Surgical History ESWL x 5 5696-6596 Surgical History Hernia repair with mesh Dr [...] Valve replacement 08/2017 Hospitalization History PE at [facility] 09/21/2018 Goals Section No Information Health Concerns No Information MEDICAL EQUIPMENT No Information MENTAL STATUS No Information FUNCTIONAL STATUS No Information ASSESSMENTS Encounter Date Diagnosis Assessment Notes Treatment Notes Treatm ent Clinical Notes Mar, Lumbosacral spinal stenosis (ICD-10 - M48.07) Continue Tylenol No. 4 for periodic use of severe pain episodes. Send stop Eloquis 3 days preprocedure and restart [address] Suazo Bilateral L4-5, L5-S1 lumbar therapeutic facet block/med hold ISTOP registry reviewed and demonstrates complliance. Brings in medications which is appropriate for what was dispensed. Risks of narcotic/opiod medications includes but is not limited to risk of de pendance/development of addiction, mood disturbance and depression, osteoporosis, hormonal and labidal changes, respiratory depression and . Patient is advised NOT to DRIVE or drink ALCOHOL while on these medications, [facility] Narcotic agreement was reviewed and signed today by the patient. See attached document for full details; Specific issues were reviewed: 1) Keep pain meds in their original bottles and any weekly planners are to be brought to the pain center at EVERY VISIT. 2) The patient is NOT to increase dosing or timing of their pain medication without specific direction of their Pain CenterProvider (not ER or other providers). 3) All pain meds are to be kept secured, in a locked box. 4) No pain meds are to be shared with any other person for any reason. 5) No pain meds may be taken from any friends or relatives for any reason 6) No meds or substances which are not legal are to be used- no marijuana, no cocaine, amphetamines, heroin, or others are ever to be used. 7)Urine testing is done to account for meds and substances being taken and will be done randomly., PLAN OF TREATMENT Treatment Notes Assessment Notes Clinical Notes Lumbosacral spinal stenosis Continue Tylenol No. 4 for periodic use of severe pain episodes. Send stop Eloquis 3 days preprocedure and restart [address] SuazoBilateral L4-5, L5-S1 lumbar therapeutic facet block/ med holdISTOP registry reviewed and demonstrates complliance. Brings in medications which is appropriate for what was dispensed.Risks of narcotic/opiod medications includes but is not limited to risk of dependance/development of addiction, mood disturbance and depression, osteoporosis, hormonal and labidal changes, respiratory depression and . Patient is advised NOT to DRIVE or drink ALCOHOL while on these medications,[facility] Narcotic agreement was reviewed and signed today by the patient. See attached document for full details; Specific issues were reviewed: 1) Keep pain meds in their original bottles and any weekly planners are to be brought to the pain center at EVERY VISIT. 2) The patient is NOT to increase dosing or timing of their pain medication without specific direction of their Pain CenterProvider (not ER or other providers). 3) All pain meds are to be kept secured, in a locked box. 4) No pain meds are to be shared with any other person for any reason. 5) No pain m eds may be taken from any friends or relatives for any reason 6) No meds or substances which are not legal are to be used- no marijuana, no cocaine, amphetamines, heroin, or others are ever to be used. 7)Urine testing is done to account for meds and substances being taken and will be done randomly., Next Appt Details post procedure/review utox/med mgmnt [place] son:Bilateral L4-5, L5-S1 lumbar therapeutic facet block/med hold Provider Name:Merlin Marsh, 08:00:00 AM, [address], [address], Provider Name:Gaetano Quezada, 2020-04-24 09:0 0:00 AM, [address] [place] [address], [phone] Provider Name:Rufina Chong, 2020-05-06 08:15:00 AM, [address] [place] [address], [phone], Provider Name:Rufina Chong, 2020-05-21 01:45:00 PM, [address] [place] [address], [phone], Follow Up:post procedure/review utox/med mgmntBilateral L4-5, L5-S1 lumbar therapeutic facet block/med hold Insurance Providers Payer Name Payer Address Payer Phone Insured Name Patient Relati onship to Insured Coverage Start Date Coverage End Date [facility] [address] [facility] [id number] [address] self MEDICAID [employer] [address] [facility] [id number] [address]
--- OUTSIDE RECORDS SUMMARY | 2020-06-29 23:22 | CCD | Summary of Care ---
Author Author [facility] Address Unknown Phone Unavailable Care Team Providers Care Management Services Technician Name Role Phone Rufina Chong MD PCP Encounter Details Care Team Description Date Type Department Arrived 03/31/2020 Office Visit PRE ADMISSION TESTI [facility] [address] [place] [phone] Allergies Comments Active Allergy Reactions Severity Noted Date Adhesive Tape Itching, Medium 02/06/2015 Rash, Swelling Sulfamethoxazole-Trimetho Anaphylaxis High 08/14 prim 10/28/16 Update: For better screening, Pharmacist entered this allergy as a "coded" drug-name entry; previously entered under "Other" on 09/24/15. patient has tolerated amoxicillin previously Cefadroxil Itching, Rash Low 10/28/2016 Erythromycin Rash High 09/10/2015 Wants to tear skin off per patient Fentanyl Other (See 09/10/2015 Comments) IV medication caused severe itching Per patient can tolerate Oral Levaquin -10/27/15 Levofloxacin Itching Medium 09/10/2015 Takes with benadryl Morphine And Related Itching 09/18/2018 Patient states allergic to Duracef Other Itching, Rash Low 09/24/2015 Tolerates amoxicillin Penicillins Rash High 09/10/2015 Tetracyclines & Related Rash High 2015 Wants to tear skin off Vancomycin Other (See 09/10/2015 Comments) documented as of this encounter (statuses as of 04/01/2020) Medications End Date Status Medication Sig Dispensed Refills Start Date Active DULoxetine (CYMBALTA) 60 Take 60 mg by 0 MG capsule mouth nightly TDD=90 mg Active vitamin C (ASCORBIC ACID) Take 500 mg 0 500 MG tablet by mouth daily. Active vitamin B-12 Take 1,000 0 (CYANOCOBALAMIN) 1000 MCG mcg by mouth tablet daily Active Calcium Carbonate-Vitamin Take 1 tablet 0 D 600-400 MG-UNIT per by mouth Two tablet Times Daily Active duloxetine (CYMBALTA) 30 Take 30 mg by 0 MG capsule mouth every morning TDD=90 mg Active Cholecalciferol (VITAMIN Take 2,000 0 D) 2000 UNITS tablet Units by mouth daily. Active ropinirole (REQUIP) 5 MG Take 5 mg by 0 tablet mouth nightly Active metoprolol tartrate Take 25 mg by 0 (LOPRESSOR) 25 MG tablet mouth Two 8 Times Daily Active Vitamin B-2 (RIBOFLAVIN) Take 100 mg 0 100 MG TABS by mouth Active buPROPion (WELLBUTRIN XL) Take 150 mg 0 01/14 150 MG 24 hr tablet by mouth 8 every morning Active Multiple Vitamin Take 1 tablet 0 (MULTIVITAMIN) tablet by mouth daily Active nystatin (NYSTATIN) Apply 0 powder topically Two times daily as needed Active Magnesium Oxide (MAG-OX) Take 400 mg 0 400 (241.3 Mg) MG tablet by mouth nightly Active triamcinolone (KENALOG) Apply 0 0.1 % cream topically Two times daily as needed Active acetaminophen, TYLENOL, Take 650 mg 0 tablet 325 MG tablet by mouth every 6 (six) hours as needed for Pain Active Apixaban 5 MG Oral Tablet Take 2.5 mg 0 09/12 (Eliquis) by mouth Two 9 Times Daily Active Daily Tyler Take 1 tablet 0 Multivitamin/Iron Oral by mouth 8 Tablet daily Active Lisinopril-hydroCHLOROthi Take 1 tablet 0 02/0 azide 10-12.5 MG Oral by mouth 0 Tablet (ZESTORETIC) daily Active Aimovig 140 MG/ML Inject 1 mL 0 Subcutaneous Solution into the skin 0 Auto-injector every 30 (thirty) days Active Gabapentin 600 MG Oral Take 600 mg 0 02 Tablet (NEURONTIN) by mouth 0 Three times daily 03/31/2020 Discontinued (Discontinued b y another clinician) folic acid (FOLVITE) 1 MG Take 1 mg by 0 tablet mouth daily. 03/31/2020 Discontinued (Discontinued b y another clinician) aspirin 81 MG EC tablet Take 81 mg by 0 mouth daily 03/31/2020 Discontinued (Discontinued b y another clinician) buPROPion (WELLBUTRIN XL) Take 300 mg 6 04/15 300 MG 24 hr tablet by mouth 8 every morning With 150 mg tablet. JMI=446 mg 03/31/2020 Discontinued (No longer need ed) ranitidine (ZANTAC) 150 Take 150 mg 0 MG tablet by mouth Two times daily as needed for Heartburn 03/31/2020 Discontinued (Therapy comple cira) Amoxicillin 500 MG Oral as needed 0 Capsule (AMOXIL) 9 03/31/2020 Discontinued (No longer need ed) tiZANidine HCl 4 MG Oral 0 Tablet (ZANAFLEX) 9 03/31/2020 Discontinued (Alternate ther apy) Pregabalin 100 MG Oral 150 mg Two 0 02 Capsule (LYRICA) Times Daily 0 03/31/2020 Discontinued (Therapy comple cira) predniSONE 20 MG Oral 0 Tablet (DELTASONE) 0 03/31/2020 Discontinued (Discontinued b y another clinician) Potassium Citrate ER 5 Take by mouth 0 01 MEQ (540 MG) Oral Tablet 1 Extended Release (UROCIT-K) 03/31/2020 Discontinued (No longer need ed) Phenazopyridine HCl 200 TAKE 1 TABLET 0 MG Oral Tablet (PYRIDIUM) BY MOUTH 0 EVERY 8 HOURS 03/31/2020 Discontinued (Discontinued b y another clinician) Naproxen 500 MG Oral 0 Tablet (NAPROSYN) 9 03/31/2020 Discontinued (Therapy comple cira) methylPREDNISolone 4 MG 0 Oral Tablet Therapy Pack 0 (MEDROL DOSEPACK) 03/31/2020 Discontinued (Alternate ther apy) hydroCHLOROthiazide 12.5 Take by mouth 0 11/08 MG Oral Tablet 1 (HYDRODIURIL) 03/31/2020 Discontinued (Dose adjustmen t) Gabapentin 300 MG Oral 0 Capsule (NEURONTIN) 0 03/31/2020 Discontinued (Duplicate) Vitamin D3 50 MCG (1999 Take by mouth 0 UT) Oral Capsule daily 9 documented as of this encounter (statuses as of 04/01/2020) Active Problems Problem Noted Date Morbid obesity with BMI of 50.0-59.9, adult 11/01/19 17 Right shoulder pain 10/28/2016 S/p reverse total shoulder arthroplasty 01/05/2016 Shoulder pain 01/02/2016 History of total replacement of right shoulder joint 10/26/2015 Infection of prosthetic shoulder joint 10/26/2015 Primary osteoarthritis of right shoulder 10/02/2015 DJD (degenerative joint disease) 10/02/2015 DJD of shoulder 10/02/2015 Anxiety Depression MRSA (methicillin resistant staph aureu s) culture positive Overview: Tx with Zivox via PIC line x 9 months Sleep apnea documented as of this encounter (statuses as of 04/01/2020) Social History Date Tobacco Use Types Packs/Day Years Used Never Smoker Smokeless Tobacco: Never Used Drinks/Week oz/Week Comments Alcohol Use No Sex Assigned at Date Recorded Not on file Date Recorded COVID-19 Exposure Response 03/31/2020 1:43 PM EST In the last month, have you been in contact with No / Unsure someone who was confirmed or suspected to have Coronavirus / COVID-19? documented as of this encounter Last Filed Vital Signs Not on filedocumented in this encounter Progress Notes * Walker Abdullahi, PharmD - 03/31/2020 1:00 PM EST Pre-Admission Testing Medication History Source of med rec information: (evette X for all sources) [X] Patient [X] [facility] [X] Doctor's office Outpatient pharmacy where patient fills prescriptions: [phone] - [address] Of note: Patient is a good historian and was able to confirm her medications. Swapnil strauss reports she takes duloxetine 30 mg in the morning and 60 mg in the evening . Patient believes that her returned telephone equipment appraiser told her to take Eliquis 2.5 mg twice d aily and has been doing so lately (patient will call office and clarify dose). The following medications were removed from the patient's home medication list: Medications Discontinued During This Encounter Medication Reason Amoxicillin 500 MG Oral Capsule (AMOXIL) Therapy completed aspirin 81 MG EC tablet Discontinued by another clinician Gabapentin 300 MG Oral Capsule (NEURONTIN) Dose adjustment buPROPion (WELLBUTRIN XL) 300 MG 24 hr tablet Discontinued by another clinician Pregabalin 100 MG Oral Capsule (LYRICA) Alternate therapy Naproxen 500 MG Oral Tablet (NAPROSYN) Discontinued by another clinician Potassium Citrate ER 5 MEQ (540 MG) Oral Tablet Extended Release (UROCIT-K) Dis continued by another clinician predniSONE 20 MG Oral Tablet (DELTASONE) Therapy completed methylPREDNISolone 4 MG Oral Tablet Therapy Pack (MEDROL DOSEPACK) Therapy comp leted hydroCHLOROthiazide 12.5 MG Oral Tablet (HYDRODIURIL) Alternate therapy folic acid (FOLVITE) 1 MG tablet Discontinued by another clinician Phenazopyridine HCl 200 MG Oral Tablet (PYRIDIUM) No longer needed ranitidine (ZANTAC) 150 MG tablet No longer needed tiZANidine HCl 4 MG Oral Tablet (ZANAFLEX) No longer needed Vitamin D3 50 MCG (1999 UT) Oral Capsule Duplicate Recommendations: 1. Prior to Admission medications Medication Sig Start Date End Date Taking? Authorizing Provider acetaminophen, TYLENOL, tablet 325 MG tablet Take 650 mg by mouth every 6 (six) hours as needed for Pain Yes Historical Provider, Aimovijacqui 140 MG/ML Subcutaneous Solution Auto-injector Inject 1 mL into the skin every 30 (thirty) days 03/11/20 Yes Historical Provider, Apixaban 5 MG Oral Tablet (Eliquis) Take 2.5 mg by mouth Two Times Daily 9 Yes Historical Provider, buPROPion (WELLBUTRIN XL) 150 MG 24 hr tablet Take 150 mg by mouth every morning 02/01/18 Yes Historical Provider, Calcium Carbonate-Vitamin D 600-400 MG-UNIT per tablet Take 1 tablet by mouth Tw o Times Daily Yes Historical Provider, Cholecalciferol (VITAMIN D) 2000 UNITS tablet Take 2,000 Units by mouth daily. Yes Historical Provider, Daily Tyler Multivitamin/Iron Oral Tablet Take 1 tablet by mouth daily 09/22/17 Yes Historical Provider, duloxetine (CYMBALTA) 30 MG capsule Take 30 mg by mouth every morning TDD=90 mg Yes Historical Provider, DULoxetine (CYMBALTA) 60 MG capsule Take 60 mg by mouth nightly TDD=90 mg Yes Historical Provider, Gabapentin 600 MG Oral Tablet (NEURONTIN) Take 600 mg by mouth Three times daily 02/28/20 Yes Historical Provider, Lisinopril-hydroCHLOROthiazide 10-12.5 MG Oral Tablet (ZESTORETIC) Take 1 tablet by mouth daily 06/20/19 Yes Historical Provider, Magnesium Oxide (MAG-OX) 400 (241.3 Mg) MG tablet Take 400 mg by mouth nightly Yes Historical Provider, metoprolol tartrate (LOPRESSOR) 25 MG tablet Take 25 mg by mouth Two Times Daily 12/15/17 Yes Historical Provider, Multiple Vitamin (MULTIVITAMIN) tablet Take 1 tablet by mouth daily Yes Histor avery ProviderMD nystatin (NYSTATIN) powder Apply topically Two times daily as needed Yes Histo rical Provider, ropinirole (REQUIP) 5 MG tablet Take 5 mg by mouth nightly Yes Historical Prov MD crystal triamcinolone (KENALOG) 0.1 % cream Apply topically Two times daily as needed Yes Historical ProviderMD vitamin B-12 (CYANOCOBALAMIN) 1000 MCG tablet Take 1,000 mcg by mouth daily Y es Historical Provider, Vitamin B-2 (RIBOFLAVIN) 100 MG TABS Take 100 mg by mouth Yes Historical Davon zacarias MD vitamin C (ASCORBIC ACID) 500 MG tablet Take 500 mg by mouth daily. Yes Histor avery ProviderMD documented in this encounter Plan of Treatment Care Team Description Date Type Specialty Merlin Paul MD [address] [place] [id number] [phone] 04/03/2020 Hospital Surgery Encounter Merlin Paul MD [address] [place] [id number] 04/15/2020 Office Visit Orthopedic Surgery Health Maintenance Due Date Last Done Comments Hepatitis C Screening (B. 1955 [phone]) MMR Vaccines (1 of - 11/17/1956 Standard series) Varicella Vaccines (1 of 11/17/1956 2 - 2-dose childhood series) DTaP,Tdap,and Td Vaccines 11/17/1962 (1 - Tdap) HIV Screening 11/17/1968 Cervical Cancer Screening 11/17/1976 5 years Breast Cancer Screening 2 11/17/2005 years Colon Cancer Screening 10 11/17/2005 yrs Zoster Vaccines (1 of 2) 11/17/2005 Pneumococcal Vaccine: 65+ 11/17/2020 Years (1 of 1 - PPSV23) Influenza Vaccine Completed 02/28/2020, 02/13/2018, 01/30/2017 HIB Vaccines Aged Out No longer eligible based on patient's age to complete this topic Hepatitis A Vaccines Aged Out No longer eligibl e based on patient's age to complete this topic Hepatitis B Vaccines Aged Out No longer eligibl e based on patient's age to complete this topic IPV Vaccines Aged Out No longer eligible based on patient's age to complete this topic Pneumococcal Vaccine: Aged Out No longer eligib le based on patient's age to Pediatrics (0 to 5 Years) complete this topic and At-Risk Patients (6 to 64 Years) documented as of this encounter Implants Device Identifier Shelf Expiration Date Model / Serial / L ot Implanted Type Area Manufactur er 08/12/2020 1350.15.110 2015 [id number] Smr Shoulder/Spalla-[id number]. - Right: Shoulder GILL [employer] [id number] [employer] Implanted: Qty: 1 on 10/02/2015 by Merlin Paul MD at [facility] 08/12/2020 8420.15.010 2015 [id number] Screw Bone Slf-Tap [id number] - Right: Shoulder [employer] [id number] INC Implanted: Qty: 1 on 10/02/2015 by Merlin Paul MD at [facility] 02/12/2020 1375.14.652 2014 [id number] Glenoid Smr Shoulder Sm-R Med. - Right: Shoulder [employer] [id number] INC Implanted: Qty: 1 on 10/02/2015 by Merlin Paul MD at OR [facility] 04/13/2020 1375.15.605 2014 02536 Glenoid Smr Shoulder Small-R. - Right: Shoulder [employer] [id number] INC Implanted: Qty: 1 on 10/02/2015 by Merlin Paul MD at OR [facility] 01/13/2020 8420.15.020 2014 [id number] Screw Bone Slf-Tap [id number] - Right: Shoulder [employer] [id number] INC Implanted: Qty: 1 on 10/02/2015 by Merlin Paul MD at OR [facility] 04/13/2020 1304.15.150 / / 2014 [id number] Smr Shoulder Finned Stem 15mm. - Right: Shoulder [employer] [id number] INC Implanted: Qty: 1 on 10/02/2015 by Merlin Paul MD at OR 11/12/2019 1330.15.272 / / 2014 [id number] Adaptor Shoulder Spall Taper. - Right: Shoulder [employer] [id number] INC Implanted: Qty: 1 on 10/02/2015 by Merlin Paul MD at OR 07/12/2019 1376.09.025 / / [id number] Smr Shoulder Glensphere 25mm - Right: Shoulder [employer] [id number] INC Implanted: Qty: 1 on 01/02/[address] [facility] 03/14/2020 1352.15.005 / / [id number] Smr Extension Hum Reverse Bodyshort Right: Shoulder L [place] - [id number] Implanted: Qty: 1 on 01/02/[address] [facility] 11/11/2018 1360.50.815 / / [id number] Liner Reverse +3mm - [id number] Right: Shoulder [employer]ILL [employer] Implanted: Qty: 1 on 01/02/[address] [facility] 09/12/2019 1352.15.001 / / [id number] Smr Extension Hum Reverse Body. - Right: Shoulder HAZEL A [employer] [id number] INC Implanted: Qty: 1 on 01/02/[address] 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
--- OUTSIDE RECORDS SUMMARY | 2020-06-29 23:22 | CCD ---
Author Author [facility] Organization [facility] Address Unknown Phone Unavailable Care Team Providers Care Hydraulic Lift Operator Name Role Phone Gaetano Quezada Unavailable PROBLEMS Type Condition ICD9-CM Code AAT10-FZ Code Onset Dates Condition S tatus SNOMED Code Notes Problem Low back pain M54.5 Active 418896413 Problem Essential hypertension I10 Active 44259296 Problem Kidney stones N20.0 Active 14496653 Problem RLS (restless legs syndrome) G25.81 Active 329 61872 Problem Vitamin D deficiency E55.9 Active 68607256 Problem Migraine without status migr ainosus, not intractable, unspecified migraine type G43.909 Active 10927395 Problem Depression with anxiety F41.8 Active 83020755 6 Problem Drug-induced polyneuropathy G62.0 Active 7339 009 Problem Anemia in other chronic diseases classified elsewhere D63.8 Active 723977362 Problem Locking of left knee M23.92 Active 78549583806 457019 Problem Morbid (severe) obesity due to excess calories E66 .01 Active 069154049 Problem Bariatric surgery status Z98.84 Active 6545425 06 Problem Other specified polyneuropathies G62.89 Active 24709498 Problem Seasonal allergic rhinitis, unspecified trigger J3 0.2 Active 759670952 Problem S/P AVR (aortic valve replacement) Z95.2 Activ e 9229841881777 Problem Microscopic hematuria R31.29 Active 337137525 Problem Hx of pulmonary embolus Z86.711 Active 61199326 7 Problem Body mass index (BMI) 60.0-69.9, adult Z68.44 A ctive 824914916 Problem History of MRSA infection Z86.14 Active 082333 000 Problem Gastroesophageal reflux disease, esophagitis pre sence not specified K21.9 Active 057532853 Problem Acute right-sided low back pain with right-sided sciatica M54.41 Active 084875942 Problem Migraine, unspecified, not intractable, without status migrainosus G43.909 Active 90015170 Problem Other chronic pain G89.29 Active 97959932 Problem Sleep apnea, unspecified G47.30 Active 9942969 6 Problem Chronic sciatica of right side M54.31 Active 3 17037047 Problem Mixed stress and urge urinary incontinence N39.46 Active 090811200 Problem Unspecified urinary incontinence R32 Active 78383414 Problem Major depressive disorder, recurrent, moderate F33 .1 Active 200488028 Problem Left-sided low back pain wit h left-sided sciatica, unspecified chronicity M54.42 Active 836405906 Problem Lumbago with sciatica, right side M54.41 Active 542511965 Problem Gouty arthritis of toe of right foot M10.9 Act jez 479898995 Problem Abnormal mammogram R92.8 Active 462813388 Problem Full incontinence of feces R15.9 Active 57012 8706602270 Problem Fecal urgency R15.2 Active 78769251 Problem Post-traumatic stress disorder, unspecified F43.10 Active 47267870 Problem Generalized anxiety disorder F41.1 Active 218 80053 ALLERGIES Allergen (clinical drug ingredient) Drug/Non Drug Allergy do cumented on EMR Reaction Allergy Type Onset Date Status tetracycline Tetracycline HCl(NDC Code:[address]-79) Rash Drug Allergy Active penicillin V Penicillin V Potassium(NDC Code:[address]-71) Rash Drug Allergy Active morphine Morphine Sulfate(NDC Code:[address]-72) IV = BURNING AND ITCHING BUT CAN TAKE WITH BENADRYL Drug Allergy Active duracef Rash Non Drug Allergy Active erythromycin Erythromycin(NDC Code:[address]-49) Rash Drug All ergy Active fentanyl Fentanyl(NDC Code:[address]-69) itching "I want to rip my skin off" Drug Allergy Active vancomycin Vancomycin HCl(NDC Code:[address]-52) i tching "I want to rip my skin off" Drug Allergy Active Adhesive Bandages rash,blisters Drug Allergy Ac tive Levaquin IV pruritis, redness Drug Allergy Ac tive sulfamethoxazole / trimethoprim Bactrim([facility] Code:[address]-02) Anaphylaxis Drug Allergy Active ENCOUNTERS from 1955 to 2020-04-09 Encounter Location Date Provider Diagnosis [address] [phone] Mar, Gaetano Quezada Post-traumatic stress disorder, unspecif ied [...] Education Language: Question Answer Notes Languages spoken: Sinhala Buddhism: Question Answer Notes Buddhism 33 None Drug and Alcohol Question Answer [...] 2 tablets oral every bedtime Active Nystatin 991501 UNIT/GM 1 to affected area External ly [...] - [facility] in p ast-last imaging at [facility] Medical History DeQuervains tenosynovitis Medical History [...] to infection. Follows with Dr. Paul in [place] Medical History Ppumlonary embolism, unprovoked - 2018; [...] 2006 2006 Surgical History ESWL x 5 1142-4012 Surgical History Hernia repair with mesh Dr [...] Valve replacement 08/2017 Hospitalization History PE at [facility] 09/21/2018 Goals Section No Information Health Concerns No Information MEDICAL EQUIPMENT No Information MENTAL STATUS No Information FUNCTIONAL STATUS No Information ASSESSMENTS Encounter Date Diagnosis Assessment Notes Treatment Notes Treatm ent Clinical Notes Mar, Post-traumatic stress disorder, unspecified (ICD -10 - F43.10) Mar, Generalized anxiety disorder (ICD-10 - F41.1) Mar, Major depressive disorder, recurrent, moderate ( ICD-10 - F33.1) Mar, Other Utilized Mindfu lness Based Therapy to review a patterned breathing technique for decreasing her symptoms of anxiety. Keiry arrived on time for her appointment and actively engaged throughout her session. Keiry was responsive to the Mindfulness Based Therapy patterned breathing intervention for decreasing her symptoms of anxiety. Keiry reports that she has recently had a few incident of frustration with her spouse which has increased her symptoms of anxiety. Keiry agreed to utilize the technique that we role played and will return for psychotherapy on 04/24/2020. Keiry is aware to call for an earlier appointment or utilize the ED for MH emergencies. PLAN OF TREATMENT Next Appt Details Provider Name:Merlin Marsh, 08:00:00 AM, [address], [place], [phone], Provider Name:Gaetano Quezada, 2020-04-24 09:0 0:00 AM, [address] [place] [address], [phone] Provider Name:Rufina Chong, 2020-05-06 08:15:00 AM, [address] [place] [address], [phone], Insurance Providers Payer Name Payer Address Payer Phone Insured Name Patient Relati onship to Insured Coverage Start Date Coverage End Date MEDICAID [employer] [address] [facility] [id number] [address] [facility] [id number] [facility] [id number] [address]
--- OUTSIDE RECORDS SUMMARY | 2020-06-29 23:24 | CCD ---
Author Author [facility] Organization [facility] Address Unknown Phone Unavailable Care Team Providers Care Marksmanship Instructor Name Role Phone IRINA VIEYRA MD Unavailable Unavailable IRINA VIEYRA MD Unavailable Unavailable IRINA VIEYRA MD Unavailable Unavailable IRINA VIEYRA MD Unavailable Unavailable IRINA VIEYRA MD Unavailable Unavailable IRINA VIEYRA MD Unavailable Unavailable IRINA VIEYRA MD Unavailable Unavailable IRINA VIEYRA MD Unavailable Unavailable IRINA VIEYRA MD Unavailable Unavailable IRINA VIEYRA MD Unavailable Unavailable NAZEM, AHMAD MD Unavailable Unavailable NAZEM, AHMAD MD Unavailable Unavailable NAZEM, AHMAD MD Unavailable Unavailable NAZEM, AHMAD MD Unavailable Unavailable NAZEM, AHMAD MD Unavailable Unavailable NAZEM, AHMAD MD Unavailable Unavailable NAZEM, AHMAD MD Unavailable Unavailable NAZEM, AHMAD MD Unavailable Unavailable NAZEM, AHMAD MD Unavailable Unavailable NAZEM, AHMAD MD Unavailable Unavailable NAZEM, AHMAD MD Unavailable Unavailable NAZEM, AHMAD MD Unavailable Unavailable NAZEM, AHMAD MD Unavailable Unavailable NAZEM, AHMAD MD Unavailable Unavailable NAZEM, AHMAD MD Unavailable Unavailable NAZEM, AHMAD MD Unavailable Unavailable NAZEM, AHMAD MD Unavailable Unavailable NAZEM, AHMAD MD Unavailable Unavailable NAZEM, AHMAD MD Unavailable Unavailable NAZEM, AHMAD MD Unavailable Unavailable NAZEM, AHMAD MD Unavailable Unavailable NAZEM, AHMAD MD Unavailable Unavailable NAZEM, AHMAD MD Unavailable Unavailable NAZEM, AHMAD MD Unavailable Unavailable NAZEM, AHMAD MD Unavailable Unavailable NAZEM, AHMAD MD Unavailable Unavailable NAZEM, AHMAD MD Unavailable Unavailable NAZEM, AHMAD MD Unavailable Unavailable NAZEM, AHMAD MD Unavailable Unavailable NAZEM, AHMAD MD Unavailable Unavailable NAZEM, AHMAD MD Unavailable Unavailable NAZEM, AHMAD MD Unavailable Unavailable NAZEM, AHMAD MD Unavailable Unavailable NAZEM, AHMAD MD Unavailable Unavailable NAZEM, AHMAD MD Unavailable Unavailable NAZEM, AHMAD MD Unavailable Unavailable NAZEM, AHMAD MD Unavailable Unavailable NAZEM, AHMAD MD Unavailable Unavailable NAZEM, AHMAD MD Unavailable Unavailable NAZEM, AHMAD MD Unavailable Unavailable NAZEM, AHMAD MD Unavailable Unavailable NAZEM, AHMAD MD Unavailable Unavailable NAZEM, AHMAD MD Unavailable Unavailable NAZEM, AHMAD MD Unavailable Unavailable NAZEM, AHMAD MD Unavailable Unavailable NAZEM, AHMAD MD Unavailable Unavailable NAZEM, AHMAD MD Unavailable Unavailable NAZEM, AHMAD MD Unavailable Unavailable NAZEM, AHMAD MD Unavailable Unavailable NAZEM, AHMAD MD Unavailable Unavailable Bhavesh FRANCO MD Unavailable Unavailable SETTERBhavesh MD Unavailable Unavailable SETTER, Bhavesh ACOSTA MD Unavailable Unavailable SETTER, Bhavesh ACOSTA MD Unavailable Unavailable SETTER, Bhavesh ACOSTA MD Unavailable Unavailable SETTER, Bhavesh ACOSTA MD Unavailable Unavailable SETTER, Bhavesh ACOSTA MD Unavailable Unavailable SETTER, Bhavesh ACOSTA MD Unavailable Unavailable SETTER, Bhavesh ACOSTA MD Unavailable Unavailable SETTER, Bhavesh ACOSTA MD Unavailable Unavailable SETTER, Bhavesh ACOSTA MD Unavailable Unavailable SETTER, Bhavesh ACOSTA MD Unavailable Unavailable SETTER, Bhavesh ACOSTA MD Unavailable Unavailable SETTER, Bhavesh ACOSTA MD Unavailable Unavailable SETTER, Bhavesh ACOSTA MD Unavailable Unavailable SETTER, Bhavesh ACOSTA MD Unavailable Unavailable SETTER, Bhavesh ACOSTA MD Unavailable Unavailable SETTER, Bhavesh ACOSTA MD Unavailable Unavailable SETTER, Bhavesh ACOSTA MD Unavailable Unavailable SETTER, Bhavesh ACOSTA MD Unavailable Unavailable SETTER, Bhavesh ACOSTA MD Unavailable Unavailable SETTER, Bhavesh ACOSTA MD Unavailable Unavailable SETTER, Bhavesh ACOSTA MD Unavailable Unavailable SETTER, Bhavesh ACOSTA MD Unavailable Unavailable SETTERBhavesh MD Unavailable Unavailable SETTER, Bhavesh ACOSTA MD Unavailable Unavailable SETTER, Bhavesh ACOSTA MD Unavailable Unavailable SETTER, Bhavesh ACOSTA MD Unavailable Unavailable SETTER, Bhavesh ACOSTA MD Unavailable Unavailable SETTER, Bhavesh ACOSTA MD Unavailable Unavailable SETTER, Bhavesh ACOSTA MD Unavailable Unavailable SETTER, Bhavesh ACOSTA MD Unavailable Unavailable SETTER, Bhavesh ACOSTA MD Unavailable Unavailable SETTER, Bhavesh ACOSTA MD Unavailable Unavailable SETTERBhavesh MD Unavailable Unavailable SETTERBhavesh MD Unavailable Unavailable SETTERBhavesh MD Unavailable Unavailable SETTERBhavesh MD Unavailable Unavailable SETTERBhavesh MD Unavailable Unavailable SETTERBhavesh MD Unavailable Unavailable SETTERBhavesh MD Unavailable Unavailable SETTERBhavesh MD Unavailable Unavailable SETTERBhavesh MD Unavailable Unavailable SETTERBhavesh MD Unavailable Unavailable SETTERBhavesh MD Unavailable Unavailable SETTERBhavesh MD Unavailable Unavailable SETTERBhavesh MD Unavailable Unavailable SETTERBhavesh MD Unavailable Unavailable SETTERBhavesh MD Unavailable Unavailable SETTERBhavesh MD Unavailable Unavailable SETTERBhavesh MD Unavailable Unavailable SETTERBhavesh MD Unavailable Unavailable SETTERBhavesh MD Unavailable Unavailable SETTERBhavesh MD Unavailable Unavailable SETTERBhavesh MD Unavailable Unavailable SETTERBhavesh MD Unavailable Unavailable SETTERBhavesh MD Unavailable Unavailable SETTERBhavesh MD Unavailable Unavailable SETTERBhavesh MD Unavailable Unavailable SETTERBhavesh MD Unavailable Unavailable SETTER, Bhavesh ACOSTA MD Unavailable Unavailable SETTER, Bhavesh ACOSTA MD Unavailable Unavailable SETTER, Bhavesh ACOSTA MD Unavailable Unavailable SETTER, Bhavesh ACOSTA MD Unavailable Unavailable SETTER, Bhavesh ACOSTA MD Unavailable Unavailable SETTER, Bhavesh ACOSTA MD Unavailable Unavailable SETTER, Bhavesh ACOSTA MD Unavailable Unavailable SETTER, Bhavesh ACOSTA MD Unavailable Unavailable SETTER, Bhavesh ACOSTA MD Unavailable Unavailable SETTER, Bhavesh ACOSTA MD Unavailable Unavailable SETTER, Bhavesh ACOSTA MD Unavailable Unavailable SETTER, Bhavesh ACOSTA MD Unavailable Unavailable SETTER, Bhavesh ACOSTA MD Unavailable Unavailable SETTER, Bhavesh ACOSTA MD Unavailable Unavailable SETTER, Bhavesh ACOSTA MD Unavailable Unavailable SETTER, Bhavesh ACOSTA MD Unavailable Unavailable SETTER, Bhavesh ACOSTA MD Unavailable Unavailable SETTER, Bhavesh ACOSTA MD Unavailable Unavailable SETTER, Bhavesh ACOSTA MD Unavailable Unavailable SETTER, Bhavesh ACOSTA MD Unavailable Unavailable SETTER, Bhavesh ACOSTA MD Unavailable Unavailable SETTER, Bhavesh ACOSTA MD Unavailable Unavailable SETTER, Bhavesh ACOSTA MD Unavailable Unavailable SETTER, Bhavesh ACOSTA MD Unavailable Unavailable SETTERBhavesh MD Unavailable Unavailable SETTERBhavesh MD Unavailable Unavailable SETTERBhavesh MD Unavailable Unavailable SETTERBhavesh MD Unavailable Unavailable SETTER, Bhavesh ACOSTA MD Unavailable Unavailable SETTER, Bhavesh ACOSTA MD Unavailable Unavailable SETTER, Bhavesh ACOSTA MD Unavailable Unavailable SETTERBhavesh MD Unavailable Unavailable SETTERBhavesh MD Unavailable Unavailable SETTERBhavesh MD Unavailable Unavailable SETTERBhavesh MD Unavailable Unavailable SETTERBhavesh MD Unavailable Unavailable SETTERBhavesh MD Unavailable Unavailable SETTERBhavesh MD Unavailable Unavailable SETTERBhavesh MD Unavailable Unavailable SETTERBhavesh MD Unavailable Unavailable SETTERBhavesh MD Unavailable Unavailable SETTERBhavesh MD Unavailable Unavailable SETTERBhavesh MD Unavailable Unavailable SETTERBhavesh MD Unavailable Unavailable SETTERBhavesh MD Unavailable Unavailable SETTERBhavesh MD Unavailable Unavailable SETTERBhavesh MD Unavailable Unavailable Carlo Blanchard MD Unavailable Unavailable Carlo Blanchard MD Unavailable Unavailable Carlo Blanchard MD Unavailable Unavailable Carlo Blanchard MD Unavailable Unavailable Carlo Blanchard MD Unavailable Unavailable Carlo Blanchard MD Unavailable Unavailable Blanchard, Carlo Oropeza MD Unavailable Unavailable Blanchard, Carlo Oropeza MD Unavailable Unavailable Blanchard, Carlo Oropeza MD Unavailable Unavailable Blanchard, Carlo Oropeza MD Unavailable Unavailable Blanchard, Carlo Oropeza MD Unavailable Unavailable Blanchard, Carlo Oropeza MD Unavailable Unavailable Blanchard, Carlo Oropeza MD Unavailable Unavailable Blanchard, Carlo Oropeza MD Unavailable Unavailable Blanchard, Carlo Oorpeza MD Unavailable Unavailable Blanchard, Carlo Oropeza MD Unavailable Unavailable Blanchard, Carlo Oropeza MD Unavailable Unavailable Blanchard, Carlo Oropeza MD Unavailable Unavailable Blanchard, Carlo Oropeza MD Unavailable Unavailable Blanchard, Carlo Oropeza MD Unavailable Unavailable Blanchard, Carlo Oropeza MD Unavailable Unavailable Blanchard, Carlo Oropeza MD Unavailable Unavailable Blanchard, Carlo Oropeza MD Unavailable Unavailable Blanchard, Carlo Oropeza MD Unavailable Unavailable Blanchard, Carlo Oropeza MD Unavailable Unavailable Blanchard, Carlo Oropeza MD Unavailable Unavailable Blanchard, Carlo Oropeza MD Unavailable Unavailable Blanchard, Carlo Oropeza MD Unavailable Unavailable Blanchard, Carlo Oropeza MD Unavailable Unavailable Blanchard, Carlo Oropeza MD Unavailable Unavailable Blanchard, Carlo Oropeza MD Unavailable Unavailable Blanchard, Carlo Oropeza MD Unavailable Unavailable Blanchard, Carlo Oropeza MD Unavailable Unavailable Blanchard, Carlo Oropeza MD Unavailable Unavailable Blanchard, Carlo Oropeza MD Unavailable Unavailable Blanchard, Carlo Oropeza MD Unavailable Unavailable Blanchard, Carlo Oropeza MD Unavailable Unavailable Blanchard, Carlo Oropeza MD Unavailable Unavailable Blanchard, Carlo Oropeza MD Unavailable Unavailable Blanchard, Carlo Oropeza MD Unavailable Unavailable Blanchard, Carlo Oropeza MD Unavailable Unavailable Blanchard, Carlo Oropeza MD Unavailable Unavailable Blanchard, Carlo Oropeza MD Unavailable Unavailable Blanchard, Carlo Oropeza MD Unavailable Unavailable Blanchard, Carlo Oropeza MD Unavailable Unavailable Blanchard, Carlo Oropeza MD Unavailable Unavailable Blanchard, Carlo Oropeza MD Unavailable Unavailable Fons, M Sergio CONSULTING SALES MANAGER Unavailable Unavailable Fons, M Sergio CONSULTING SALES MANAGER Unavailable Unavailable Fons, M Sergio CONSULTING SALES MANAGER Unavailable Unavailable Fons, M Sergio CONSULTING SALES MANAGER Unavailable Unavailable Fons, M Sergio CONSULTING SALES MANAGER Unavailable Unavailable Fons, M Sergio CONSULTING SALES MANAGER Unavailable Unavailable Fons, M Sergio CONSULTING SALES MANAGER Unavailable Unavailable Fons, M Sergio CONSULTING SALES MANAGER Unavailable Unavailable Fons, M Sergio CONSULTING SALES MANAGER Unavailable Unavailable Fons, M Sergio CONSULTING SALES MANAGER Unavailable Unavailable Fons, M Sergio CONSULTING SALES MANAGER Unavailable Unavailable Fons, M Sergio CONSULTING SALES MANAGER Unavailable Unavailable Fons, M Sergio CONSULTING SALES MANAGER Unavailable Unavailable Fons, M Sergio CONSULTING SALES MANAGER Unavailable Unavailable Fons, M Sergio CONSULTING SALES MANAGER Unavailable Unavailable Fons, M Sergio CONSULTING SALES MANAGER Unavailable Unavailable Fons, M Sergio CONSULTING SALES MANAGER Unavailable Unavailable Fons, M Sergio CONSULTING SALES MANAGER Unavailable Unavailable Fons, M Sergio CONSULTING SALES MANAGER Unavailable Unavailable Fons, M Sergio CONSULTING SALES MANAGER Unavailable Unavailable Fons, M Sergio CONSULTING SALES MANAGER Unavailable Unavailable Fons, M Sergio CONSULTING SALES MANAGER Unavailable Unavailable Fons, M Sergio CONSULTING SALES MANAGER Unavailable Unavailable Fons, M Sergio CONSULTING SALES MANAGER Unavailable Unavailable Fons, M Sergio CONSULTING SALES MANAGER Unavailable Unavailable Fons, M Sergio CONSULTING SALES MANAGER Unavailable Unavailable Fons, M Sergio CONSULTING SALES MANAGER Unavailable Unavailable Fons, M Sergio CONSULTING SALES MANAGER Unavailable Unavailable Fons, M Sergio CONSULTING SALES MANAGER Unavailable Unavailable Fons, M Sergio CONSULTING SALES MANAGER Unavailable Unavailable Fons, M Sergio CONSULTING SALES MANAGER Unavailable Unavailable Fons, M Sergio CONSULTING SALES MANAGER Unavailable Unavailable Fons, M Sergio CONSULTING SALES MANAGER Unavailable Unavailable Fons, M Sergio CONSULTING SALES MANAGER Unavailable Unavailable Fons, M Sergio CONSULTING SALES MANAGER Unavailable Unavailable Fons, M Sergio CONSULTING SALES MANAGER Unavailable Unavailable Fons, M Sergio CONSULTING SALES MANAGER Unavailable Unavailable Fons, M Sergio CONSULTING SALES MANAGER Unavailable Unavailable Fons, M Sergio CONSULTING SALES MANAGER Unavailable Unavailable Fons, M Sergio CONSULTING SALES MANAGER Unavailable Unavailable Fons, M Sergio CONSULTING SALES MANAGER Unavailable Unavailable Fons, M Sergio CONSULTING SALES MANAGER Unavailable Unavailable Fons, M Sergio CONSULTING SALES MANAGER Unavailable Unavailable Fons, M Sergio CONSULTING SALES MANAGER Unavailable Unavailable Fons, M Sergio CONSULTING SALES MANAGER Unavailable Unavailable Fons, M Sergio CONSULTING SALES MANAGER Unavailable Unavailable Fons, M Sergio CONSULTING SALES MANAGER Unavailable Unavailable Fons, M Sergio CONSULTING SALES MANAGER Unavailable Unavailable Fons, M Sergio CONSULTING SALES MANAGER Unavailable Unavailable Fons, M Sergio CONSULTING SALES MANAGER Unavailable Unavailable Fons, M Sergio CONSULTING SALES MANAGER Unavailable Unavailable Fons, M Sergio CONSULTING SALES MANAGER Unavailable Unavailable Fons, M Sergio CONSULTING SALES MANAGER Unavailable Unavailable Fons, M Sergio CONSULTING SALES MANAGER Unavailable Unavailable Fons, M Sergio CONSULTING SALES MANAGER Unavailable Unavailable Barry Chong MD Unavailable Unavailable Barry Chong MD Unavailable Unavailable Barry Chong MD Unavailable Unavailable Barry Chong MD Unavailable Unavailable Barry Chong MD Unavailable Unavailable Barry Chong MD Unavailable Unavailable Barry Chong MD Unavailable Unavailable Barry Chong MD Unavailable Unavailable Barry Chong MD Unavailable Unavailable Barry Chong MD Unavailable Unavailable Barry Chong MD Unavailable Unavailable Barry Chong MD Unavailable Unavailable Barry Chong MD Unavailable Unavailable Barry Chong MD Unavailable Unavailable Barry Chong MD Unavailable Unavailable Barry Chong MD Unavailable Unavailable Barry Chong MD Unavailable Unavailable Barry Chong MD Unavailable Unavailable Barry Chong MD Unavailable Unavailable Barry Chong MD Unavailable Unavailable Skipton, Barry Almaraz MD Unavailable Unavailable Skipton, Barry Almaraz MD Unavailable Unavailable Skipton, Barry Almaraz MD Unavailable Unavailable Skipton, Barry Almaraz MD Unavailable Unavailable Skipton, Barry Almaraz MD Unavailable Unavailable Skipton, Barry Almaraz MD Unavailable Unavailable Skipton, Barry Almaraz MD Unavailable Unavailable Skipton, Barry Almaraz MD Unavailable Unavailable Skipton, Barry Almaraz MD Unavailable Unavailable Skipton, Barry Almaraz MD Unavailable Unavailable Skipton, Barry Almaraz MD Unavailable Unavailable Skipton, Barry Almaraz MD Unavailable Unavailable Skipton, Barry Almaraz MD Unavailable Unavailable Skipton, Barry Almaraz MD Unavailable Unavailable Skipton, Barry Almaraz MD Unavailable Unavailable Skipton, Barry Almaraz MD Unavailable Unavailable Skipton, Barry Almaraz MD Unavailable Unavailable Skipton, Barry Almaraz MD Unavailable Unavailable Skipton, Barry Almaraz MD Unavailable Unavailable Skipton, Barry Almaraz MD Unavailable Unavailable Skipton, Barry Almaraz MD Unavailable Unavailable Skipton, Barry Almaraz MD Unavailable Unavailable Skipton, Barry Almaraz MD Unavailable Unavailable Skipton, Barry Almaraz MD Unavailable Unavailable Skipton, Barry Almaraz MD Unavailable Unavailable Skipton, Barry Almaraz MD Unavailable Unavailable Skipton, Barry Almaraz MD Unavailable Unavailable Skipton, Barry Almaraz MD Unavailable Unavailable Skipton, Barry Almaraz MD Unavailable Unavailable Skipton, Barry Almaraz MD Unavailable Unavailable Skipton, Barry Almaraz MD Unavailable Unavailable Skipton, Barry Almaraz MD Unavailable Unavailable LY, R DAVID SOCIAL GROUP WORKER Unavailable Unavailable LY, R DAVID SOCIAL GROUP WORKER Unavailable Unavailable LY, R DAVID SOCIAL GROUP WORKER Unavailable Unavailable LY, R DAVID SOCIAL GROUP WORKER Unavailable Unavailable LY, R DAVID SOCIAL GROUP WORKER Unavailable Unavailable LY, R DAVID SOCIAL GROUP WORKER Unavailable Unavailable LY, R DAVID SOCIAL GROUP WORKER Unavailable Unavailable LY, R DAVID SOCIAL GROUP WORKER Unavailable Unavailable LY, R DAVID SOCIAL GROUP WORKER Unavailable Unavailable LY, R DAVID SOCIAL GROUP WORKER Unavailable Unavailable LY, R DAVID SOCIAL GROUP WORKER Unavailable Unavailable LY, R DAVID SOCIAL GROUP WORKER Unavailable Unavailable LY, R DAVID SOCIAL GROUP WORKER Unavailable Unavailable LY, R DAVID SOCIAL GROUP WORKER Unavailable Unavailable LY, R DAVID SOCIAL GROUP WORKER Unavailable Unavailable LY, R DAVID SOCIAL GROUP WORKER Unavailable Unavailable LY, R DAVID SOCIAL GROUP WORKER Unavailable Unavailable LY, R DAVID SOCIAL GROUP WORKER Unavailable Unavailable LY, R DAVID SOCIAL GROUP WORKER Unavailable Unavailable LY, R DAVID SOCIAL GROUP WORKER Unavailable Unavailable LY, R DAVID SOCIAL GROUP WORKER Unavailable Unavailable LY, R DAVID SOCIAL GROUP WORKER Unavailable Unavailable LY, R DAVID SOCIAL GROUP WORKER Unavailable Unavailable LY, R DAVID SOCIAL GROUP WORKER Unavailable Unavailable LY, R DAVID SOCIAL GROUP WORKER Unavailable Unavailable LY, R DAVID SOCIAL GROUP WORKER Unavailable Unavailable LY, R DAVID SOCIAL GROUP WORKER Unavailable Unavailable LY, R DAVID SOCIAL GROUP WORKER Unavailable Unavailable LY, R DAVID SOCIAL GROUP WORKER Unavailable Unavailable LY, R DAVID SOCIAL GROUP WORKER Unavailable Unavailable LY, R DAVID SOCIAL GROUP WORKER Unavailable Unavailable LY, R DAVID SOCIAL GROUP WORKER Unavailable Unavailable LY, R DAVID SOCIAL GROUP WORKER Unavailable Unavailable LY, R DAVID SOCIAL GROUP WORKER Unavailable Unavailable LY, R DAVID SOCIAL GROUP WORKER Unavailable Unavailable LY, R DAVID SOCIAL GROUP WORKER Unavailable Unavailable LY, R DAVID SOCIAL GROUP WORKER Unavailable Unavailable LY, R DAVID SOCIAL GROUP WORKER Unavailable Unavailable LY, R DAVID SOCIAL GROUP WORKER Unavailable Unavailable LY, R DAVID SOCIAL GROUP WORKER Unavailable Unavailable LY, R DAIVD SOCIAL GROUP WORKER Unavailable Unavailable Scozzari, K Lissy PA Unavailable Unavailable Scozzari, K Lissy PA Unavailable Unavailable Scozzari, K Lissy PA Unavailable Unavailable Scozzari, K Lissy PA Unavailable Unavailable Scozzari, K Lissy PA Unavailable Unavailable Scozzari, K Lissy PA Unavailable Unavailable Scozzari, K Lissy PA Unavailable Unavailable Scozzari, K Lissy PA Unavailable Unavailable Scozzari, K Lissy PA Unavailable Unavailable Scozzari, K Lissy PA Unavailable Unavailable Scozzari, K Lissy PA Unavailable Unavailable Scozzari, K Lissy PA Unavailable Unavailable Scozzari, K Lissy PA Unavailable Unavailable Scozzari, K Lissy PA Unavailable Unavailable Scozzari, K Lissy PA Unavailable Unavailable Scozzari, K Lissy PA Unavailable Unavailable Scozzari, K Lissy PA Unavailable Unavailable Scozzari, K Lissy PA Unavailable Unavailable Scozzari, K Lissy PA Unavailable Unavailable Scozzari, K Lissy PA Unavailable Unavailable Scozzari, K Lissy PA Unavailable Unavailable Scozzari, K Lissy PA Unavailable Unavailable Scozzari, K Lissy PA Unavailable Unavailable Scozzari, K Lissy PA Unavailable Unavailable Scozzari, K Lissy PA Unavailable Unavailable Scozzari, K Lissy PA Unavailable Unavailable Scozzari, K Lissy PA Unavailable Unavailable Scozzari, K Lissy PA Unavailable Unavailable Scozzari, K Lissy PA Unavailable Unavailable Scozzari, K Lissy PA Unavailable Unavailable Scozzari, K Lissy PA Unavailable Unavailable Scozzari, K Lissy PA Unavailable Unavailable Scozzari, K Lissy PA Unavailable Unavailable Scozzari, K Lissy PA Unavailable Unavailable Scozzari, K Lissy PA Unavailable Unavailable Scozzari, K Lissy PA Unavailable Unavailable Scozzari, K Lissy PA Unavailable Unavailable Scozzari, K Lissy PA Unavailable Unavailable Scozzari, K Lissy PA Unavailable Unavailable Scozzari, K Lissy PA Unavailable Unavailable Scozzari, K Lissy PA Unavailable Unavailable Scozzari, K Lsisy PA Unavailable Unavailable Scozzari, K Lissy PA Unavailable Unavailable Scozzari, K Lissy PA Unavailable Unavailable Scozzari, K Lissy PA Unavailable Unavailable Scozzari, K Lissy PA Unavailable Unavailable Maring, Cezar PA Unavailable Unavailable Maring, Cezar PA Unavailable Unavailable Maring, Cezar PA Unavailable Unavailable Maring, Cezar PA Unavailable Unavailable Maring, Cezar PA Unavailable Unavailable Maring, Cezar PA Unavailable Unavailable Maring, Cezar PA Unavailable Unavailable Maring, Cezar PA Unavailable Unavailable Maring, Cezar PA Unavailable Unavailable Maring, Cezar PA Unavailable Unavailable Maring, Cezar PA Unavailable Unavailable Maring, Cezar PA Unavailable Unavailable Maring, Cezar PA Unavailable Unavailable Maring, Cezar PA Unavailable Unavailable Randall, L Audrey PA Unavailable Unavailable Randall, L Audrey PA Unavailable Unavailable Randall, L Audrey PA Unavailable Unavailable Randall, L Audrey PA Unavailable Unavailable Randall, L Audrey PA Unavailable Unavailable Randall, L Audrey PA Unavailable Unavailable Randall, L Audrey PA Unavailable Unavailable Randall, L Audrey PA Unavailable Unavailable Randall, L Audrey PA Unavailable Unavailable Randall, L Audrey PA Unavailable Unavailable Randall, L Audrey PA Unavailable Unavailable Randall, L Audrey PA Unavailable Unavailable Randall, L Audrey PA Unavailable Unavailable Randall, L Audrey PA Unavailable Unavailable Randall, L Audrey PA Unavailable Unavailable Randall, L Audrey PA Unavailable Unavailable Randall, L Audrey PA Unavailable Unavailable Randall, L Audrey PA Unavailable Unavailable Randall, L Audrey PA Unavailable Unavailable Randall, L Audrey PA Unavailable Unavailable Randall, L Audrey PA Unavailable Unavailable Randall, L Audrey PA Unavailable Unavailable Randall, L Audrey PA Unavailable Unavailable Randall, L Audrey PA Unavailable Unavailable Randall, L Audrey PA Unavailable Unavailable Randall, L Audrey PA Unavailable Unavailable Randall, L Audrey PA Unavailable Unavailable Randall, L Audrey PA Unavailable Unavailable Randall, L Audrey PA Unavailable Unavailable Randall, L Audrey PA Unavailable Unavailable Randall, L Audrey PA Unavailable Unavailable Randall, L Audrey PA Unavailable Unavailable Randall, L Audrey PA Unavailable Unavailable Randall, L Audrey PA Unavailable Unavailable Randall, L Audrey PA Unavailable Unavailable Randall, L Audrey PA Unavailable Unavailable ALIASES , DEFAULT / GENERIC / UNKNOWN PROVIDER * Unavailable Unavailable ALIASES , DEFAULT / GENERIC / UNKNOWN PROVIDER * Unavailable Unavailable ALIASES , DEFAULT / GENERIC / UNKNOWN PROVIDER * Unavailable Unavailable ALIASES , DEFAULT / GENERIC / UNKNOWN PROVIDER * Unavailable Unavailable ALIASES , DEFAULT / GENERIC / UNKNOWN PROVIDER * Unavailable Unavailable ALIASES , DEFAULT / GENERIC / UNKNOWN PROVIDER * Unavailable Unavailable ALIASES , DEFAULT / GENERIC / UNKNOWN PROVIDER * Unavailable Unavailable ALIASES , DEFAULT / GENERIC / UNKNOWN PROVIDER * Unavailable Unavailable ALIASES , DEFAULT / GENERIC / UNKNOWN PROVIDER * Unavailable Unavailable ALIASES , DEFAULT / GENERIC / UNKNOWN PROVIDER * Unavailable Unavailable ALIASES , DEFAULT / GENERIC / UNKNOWN PROVIDER * Unavailable Unavailable ALIASES , DEFAULT / GENERIC / UNKNOWN PROVIDER * Unavailable Unavailable ALIASES , DEFAULT / GENERIC / UNKNOWN PROVIDER * Unavailable Unavailable ALIASES , DEFAULT / GENERIC / UNKNOWN PROVIDER * Unavailable Unavailable ALIASES , DEFAULT / GENERIC / UNKNOWN PROVIDER * Unavailable Unavailable ALIASES , DEFAULT / GENERIC / UNKNOWN PROVIDER * Unavailable Unavailable ALIASES , DEFAULT / GENERIC / UNKNOWN PROVIDER * Unavailable Unavailable ALIASES , DEFAULT / GENERIC / UNKNOWN PROVIDER * Unavailable Unavailable ALIASES , DEFAULT / GENERIC / UNKNOWN PROVIDER * Unavailable Unavailable ALIASES , DEFAULT / GENERIC / UNKNOWN PROVIDER * Unavailable Unavailable ALIASES , DEFAULT / GENERIC / UNKNOWN PROVIDER * Unavailable Unavailable ALIASES , DEFAULT / GENERIC / UNKNOWN PROVIDER * Unavailable Unavailable ALIASES , DEFAULT / GENERIC / UNKNOWN PROVIDER * Unavailable Unavailable ALIASES , DEFAULT / GENERIC / UNKNOWN PROVIDER * Unavailable Unavailable ALIASES , DEFAULT / GENERIC / UNKNOWN PROVIDER * Unavailable Unavailable ALIASES , DEFAULT / GENERIC / UNKNOWN PROVIDER * Unavailable Unavailable ALIASES , DEFAULT / GENERIC / UNKNOWN PROVIDER * Unavailable Unavailable ALIASES , DEFAULT / GENERIC / UNKNOWN PROVIDER * Unavailable Unavailable ALIASES , DEFAULT / GENERIC / UNKNOWN PROVIDER * Unavailable Unavailable ALIASES , DEFAULT / GENERIC / UNKNOWN PROVIDER * Unavailable Unavailable ALIASES , DEFAULT / GENERIC / UNKNOWN PROVIDER * Unavailable Unavailable ALIASES , DEFAULT / GENERIC / UNKNOWN PROVIDER * Unavailable Unavailable ALIASES , DEFAULT / GENERIC / UNKNOWN PROVIDER * Unavailable Unavailable ALIASES , DEFAULT / GENERIC / UNKNOWN PROVIDER * Unavailable Unavailable ALIASES , DEFAULT / GENERIC / UNKNOWN PROVIDER * Unavailable Unavailable ALIASES , DEFAULT / GENERIC / UNKNOWN PROVIDER * Unavailable Unavailable ALIASES , DEFAULT / GENERIC / UNKNOWN PROVIDER * Unavailable Unavailable ALIASES , DEFAULT / GENERIC / UNKNOWN PROVIDER * Unavailable Unavailable ALIASES , DEFAULT / GENERIC / UNKNOWN PROVIDER * Unavailable Unavailable ALIASES , DEFAULT / GENERIC / UNKNOWN PROVIDER * Unavailable Unavailable ALIASES , DEFAULT / GENERIC / UNKNOWN PROVIDER * Unavailable Unavailable ALIASES , DEFAULT / GENERIC / UNKNOWN PROVIDER * Unavailable Unavailable ALIASES , DEFAULT / GENERIC / UNKNOWN PROVIDER * Unavailable Unavailable ALIASES , DEFAULT / GENERIC / UNKNOWN PROVIDER * Unavailable Unavailable ALIASES , DEFAULT / GENERIC / UNKNOWN PROVIDER * Unavailable Unavailable ALIASES , DEFAULT / GENERIC / UNKNOWN PROVIDER * Unavailable Unavailable ALIASES , DEFAULT / GENERIC / UNKNOWN PROVIDER * Unavailable Unavailable ALIASES , DEFAULT / GENERIC / UNKNOWN PROVIDER * Unavailable Unavailable ALIASES , DEFAULT / GENERIC / UNKNOWN PROVIDER * Unavailable Unavailable ALIASES , DEFAULT / GENERIC / UNKNOWN PROVIDER * Unavailable Unavailable ALIASES , DEFAULT / GENERIC / UNKNOWN PROVIDER * Unavailable Unavailable ALIASES , DEFAULT / GENERIC / UNKNOWN PROVIDER * Unavailable Unavailable ALIASES , DEFAULT / GENERIC / UNKNOWN PROVIDER * Unavailable Unavailable Fish, [facility], PA-C Unavailable Unavailabl e Fish, [facility], PA-C Unavailable Unavailabl e Fish, [facility], PA-C Unavailable Unavailabl e Fish, [facility], PA-C Unavailable Unavailabl e Fish, [facility], PA-C Unavailable Unavailabl e Fish, [facility], PA-C Unavailable Unavailabl e Fish, [facility], PA-C Unavailable Unavailabl e Fish, [facility], PA-C Unavailable Unavailabl e Fish, [facility], PA-C Unavailable Unavailabl e Fish, [facility], PA-C Unavailable Unavailabl e Fish, [facility], PA-C Unavailable Unavailabl e Fish, [facility], PA-C Unavailable Unavailabl e Fish, [facility], PA-C Unavailable Unavailabl e Fish, [facility], PA-C Unavailable Unavailabl e Fish, [facility], PA-C Unavailable Unavailabl e Fish, [facility], PA-C Unavailable Unavailabl e Fish, [facility], PA-C Unavailable Unavailabl e Fish, [facility], PA-C Unavailable Unavailabl e Fish, [facility], PA-C Unavailable Unavailabl e Fish, [facility], PA-C Unavailable Unavailabl e Fish, [facility], PA-C Unavailable Unavailabl e Fish, [facility], PA-C Unavailable Unavailabl e Fish, [facility], PA-C Unavailable Unavailabl e Fish, [facility], PA-C Unavailable Unavailabl e Fish, [facility], PA-C Unavailable Unavailabl e Fish, [facility], PA-C Unavailable Unavailabl e Fish, [facility], PA-C Unavailable Unavailabl e Fish, [facility], PA-C Unavailable Unavailabl e Fish, [facility], PA-C Unavailable Unavailabl e Fish, [facility], PA-C Unavailable Unavailabl e Fish, [facility], PA-C Unavailable Unavailabl e Fish, [facility], PA-C Unavailable Unavailabl e Fish, [facility], PA-C Unavailable Unavailabl e Lizy REYNOLDS MD Unavailable Unavailable Lizy REYNOLDS MD Unavailable Unavailable Lizy REYNOLDS MD Unavailable Unavailable Lizy REYNOLDS MD Unavailable Unavailable Lizy REYNOLDS MD Unavailable Unavailable Lizy REYNOLDS MD Unavailable Unavailable Lizy REYNOLDS MD Unavailable Unavailable Lizy REYNOLDS MD Unavailable Unavailable Lizy REYNOLDS MD Unavailable Unavailable Lizy REYNOLDS MD Unavailable Unavailable Lizy REYNOLDS MD Unavailable Unavailable Lizy REYNOLDS MD Unavailable Unavailable Lizy REYNOLDS MD Unavailable Unavailable Lizy REYNOLDS MD Unavailable Unavailable Lizy REYNOLDS MD Unavailable Unavailable Lizy REYNOLDS MD Unavailable Unavailable Lizy REYNOLDS MD Unavailable Unavailable Lizy REYNOLDS MD Unavailable Unavailable Lizy REYNOLDS MD Unavailable Unavailable Lizy REYNOLDS MD Unavailable Unavailable Lizy REYNOLDS MD Unavailable Unavailable REYNOLDS, Lizy GRANADOS MD Unavailable Unavailable REYNOLDS, Lizy GRANADOS MD Unavailable Unavailable REYNOLDS, Lizy GRANADOS MD Unavailable Unavailable REYNOLDS, Lizy GRANADOS MD Unavailable Unavailable REYNOLDS, Lizy GRANADOS MD Unavailable Unavailable REYNOLDS, Lizy GRANADOS MD Unavailable Unavailable REYNOLDS, Lizy GRANADOS MD Unavailable Unavailable REYNOLDS, Lizy GRANADOS MD Unavailable Unavailable REYNOLDS, Lizy GRANADOS MD Unavailable Unavailable REYNOLDS, Lizy GRANADOS MD Unavailable Unavailable REYNOLDS, Lizy GRANADOS MD Unavailable Unavailable REYNOLDS, Lizy GRANADOS MD Unavailable Unavailable REYNOLDS, Lizy GRANADOS MD Unavailable Unavailable REYNOLDS, Lizy GRANADOS MD Unavailable Unavailable REYNOLDS, Lizy GRANADOS MD Unavailable Unavailable REYNOLDS, Lizy GRANADOS MD Unavailable Unavailable REYNOLDS, Lizy GRANADOS MD Unavailable Unavailable REYNOLDS, Lizy GRANADOS MD Unavailable Unavailable REYNOLDS, Lizy GRANADOS MD Unavailable Unavailable REYNOLDS, Lizy GRANADOS MD Unavailable Unavailable REYNOLDS, Lizy GRANADOS MD Unavailable Unavailable REYNOLDS, Lizy GRANADOS MD Unavailable Unavailable REYNOLDS, Lizy GRANADOS MD Unavailable Unavailable REYNOLDS, Lizy GRANADOS MD Unavailable Unavailable REYNOLDS, Lizy GRANADOS MD Unavailable Unavailable REYNOLDS, Lizy GRANADOS MD Unavailable Unavailable REYNOLDS, Lizy GRANADOS MD Unavailable Unavailable REYNOLDS, Lizy GRANADOS MD Unavailable Unavailable REYNOLDS, Lizy GRANADOS MD Unavailable Unavailable REYNOLDS, Lizy GRANADOS MD Unavailable Unavailable REYNOLDS, Lizy GRANADOS MD Unavailable Unavailable REYNOLDS, Lizy GRANADOS MD Unavailable Unavailable REYNOLDS, Lizy GRANADOS MD Unavailable Unavailable REYNOLDS, Lizy GRANADOS MD Unavailable Unavailable REYNOLDS, Lizy GRANADOS MD Unavailable Unavailable REYNOLDS, Lizy GRANADOS MD Unavailable Unavailable REYNOLDS, Lizy GRANADOS MD Unavailable Unavailable REYNOLDS, Lizy GRANADOS MD Unavailable Unavailable REYNOLDS, Lizy GRANADOS MD Unavailable Unavailable REYNOLDS, Lizy GRANADOS MD Unavailable Unavailable REYNOLDS, Lizy GRANADOS MD Unavailable Unavailable REYNOLDS, Lizy GRANADOS MD Unavailable Unavailable REYNOLDS, Lizy GRANADOS MD Unavailable Unavailable REYNOLDS, Lizy GRANADOS MD Unavailable Unavailable REYNOLDS, Lizy GRANADOS MD Unavailable Unavailable REYNOLDS, Lizy GRANADOS MD Unavailable Unavailable REYNOLDS, Lizy GRANADOS MD Unavailable Unavailable REYNOLDS, Lizy GRANADOS MD Unavailable Unavailable REYNOLDS, Lizy GRANADOS MD Unavailable Unavailable REYNOLDS, Lizy GRANADOS MD Unavailable Unavailable REYNOLDS, Lizy GRANADOS MD Unavailable Unavailable REYNOLDS, Lizy GRANADOS MD Unavailable Unavailable REYNOLDS, Lizy GRANADOS MD Unavailable Unavailable REYNOLDS, Lizy GRANADOS MD Unavailable Unavailable REYNOLDS, Lizy GRANADOS MD Unavailable Unavailable REYNOLDS, Lizy GRANADOS MD Unavailable Unavailable REYNOLDS, Lizy GRANADOS MD Unavailable Unavailable REYNOLDS, Lizy GRANADOS MD Unavailable Unavailable REYNOLDS, Lizy GRANADOS MD Unavailable Unavailable REYNOLDS, Lizy GRANADOS MD Unavailable Unavailable REYNOLDS, Lizy GRANADOS MD Unavailable Unavailable REYNOLDS, Lizy GRANADOS MD Unavailable Unavailable REYNOLDS, Lizy GRANADOS MD Unavailable Unavailable REYNOLDSLizy MD Unavailable Unavailable REYNOLDSLizy MD Unavailable Unavailable REYNOLDSLizy MD Unavailable Unavailable REYNOLDSLizy MD Unavailable Unavailable REYNOLDSLizy MD Unavailable Unavailable REYNOLDSLizy MD Unavailable Unavailable REYNOLDSLizy MD Unavailable Unavailable REYNOLDSLizy MD Unavailable Unavailable REYNOLDSLizy MD Unavailable Unavailable REYNOLDSLizy MD Unavailable Unavailable REYNOLDSLizy MD Unavailable Unavailable REYNOLDSLizy MD Unavailable Unavailable REYNOLDSLizy MD Unavailable Unavailable REYNOLDSLizy MD Unavailable Unavailable REYNOLDSLizy MD Unavailable Unavailable REYNOLDSLizy MD Unavailable Unavailable REYNOLDSLizy Reddy MD Unavailable Unavailable REYNOLDSLizy MD Unavailable Unavailable REYNOLDSLizy MD Unavailable Unavailable REYNOLDSLizy MD Unavailable Unavailable REYNOLDSLizy MD Unavailable Unavailable REYNOLDSLizy MD Unavailable Unavailable REYNOLDSLizy MD Unavailable Unavailable REYNOLDSLizy MD Unavailable Unavailable REYNOLDSLizy Reddy MD Unavailable Unavailable REYNOLDSLizy Reddy MD Unavailable Unavailable REYNOLDSLizy Reddy MD Unavailable Unavailable REYNOLDSLizy MD Unavailable Unavailable REYNOLDSLizy MD Unavailable Unavailable REYNOLDSLizy Reddy MD Unavailable Unavailable REYNOLDSLizy Reddy MD Unavailable Unavailable PAULYLizy ALEXANDRE MD Unavailable Unavailable PAULYLizy ALEXANDRE MD Unavailable Unavailable PAULYLizy ALEXANDRE MD Unavailable Unavailable PAULYLizy ALEXANDRE MD Unavailable Unavailable PAULYLizy ALEXANDRE MD Unavailable Unavailable PAULYLizy ALEXANDRE MD Unavailable Unavailable PAULYLizy ALEXANDRE MD Unavailable Unavailable Lizy BUENO MD Unavailable Unavailable Lizy BUENO MD Unavailable Unavailable Lizy BUENO MD Unavailable Unavailable Lizy BUENO MD Unavailable Unavailable PAULYLizy ALEXANDRE MD Unavailable Unavailable Lizy BUENO MD Unavailable Unavailable PAULYLizy ALEXANDRE MD Unavailable Unavailable Lizy BUENO MD Unavailable Unavailable Lizy BUENO MD Unavailable Unavailable PAULYLizy ALEXANDRE MD Unavailable Unavailable Lizy BUENO MD Unavailable Unavailable PAULYLizy ALEXANDRE MD Unavailable Unavailable PAULYLizy ALEXANDRE MD Unavailable Unavailable PAULYLizy ALEXANDRE MD Unavailable Unavailable PAULYLizy ALEXANDRE MD Unavailable Unavailable Lizy BUENO MD Unavailable Unavailable Lizy BUENO MD Unavailable Unavailable PAULYLizy ALEXANDRE MD Unavailable Unavailable PAULYLizy ALEXANDRE MD Unavailable Unavailable PAULYLizy MD Unavailable Unavailable PAULYLizy MD Unavailable Unavailable PAULY, T ESHA MD Unavailable Unavailable Lizy BUENO MD Unavailable Unavailable Lizy BUENO MD Unavailable Unavailable Lizy BUENO MD Unavailable Unavailable Lizy BUENO MD Unavailable Unavailable Lizy BUENO MD Unavailable Unavailable Lizy BUENO MD Unavailable Unavailable Lizy BUENO MD Unavailable Unavailable Lizy BUENO MD Unavailable Unavailable Lizy BUENO MD Unavailable Unavailable Lizy BUENO MD Unavailable Unavailable Lizy BUENO MD Unavailable Unavailable Lizy BUENO MD Unavailable Unavailable Lizy BUENO MD Unavailable Unavailable Lizy BUENO MD Unavailable Unavailable Lizy BUENO MD Unavailable Unavailable Lizy BUENO MD Unavailable Unavailable Lizy BUENO MD Unavailable Unavailable Lizy BUENO MD Unavailable Unavailable Lizy BUENO MD Unavailable Unavailable Lizy BUENO MD Unavailable Unavailable Lizy BUENO MD Unavailable Unavailable Lizy BUENO MD Unavailable Unavailable Lizy BUENO MD Unavailable Unavailable Lizy BUENO MD Unavailable Unavailable Lizy BUENO MD Unavailable Unavailable Lizy BUENO MD Unavailable Unavailable Lizy BUENO MD Unavailable Unavailable Lizy BUENO MD Unavailable Unavailable Lizy BUENO MD Unavailable Unavailable Lizy BUENO MD Unavailable Unavailable Lizy BUENO MD Unavailable Unavailable Lizy BUENO MD Unavailable Unavailable Lizy BUENO MD Unavailable Unavailable Lizy BUENO MD Unavailable Unavailable Lizy BUENO MD Unavailable Unavailable Lizy BUENO MD Unavailable Unavailable Lizy BUENO MD Unavailable Unavailable Lizy BUENO MD Unavailable Unavailable Lizy BUENO MD Unavailable Unavailable Lizy BUENO MD Unavailable Unavailable Lizy BUENO MD Unavailable Unavailable Lizy BUENO MD Unavailable Unavailable Lizy BUENO MD Unavailable Unavailable Lizy BUENO MD Unavailable Unavailable Lizy BUENO MD Unavailable Unavailable Lizy BUENO MD Unavailable Unavailable Lizy BUENO MD Unavailable Unavailable Lizy BUENO MD Unavailable Unavailable Lizy BUENO MD Unavailable Unavailable Lizy BUENO MD Unavailable Unavailable Lizy BUENO MD Unavailable Unavailable Lizy BUEON MD Unavailable Unavailable Lizy BUENO MD Unavailable Unavailable Lizy BUENO MD Unavailable Unavailable Dille, E Inés DDS Unavailable Unavailable Dille, E Inés DDS Unavailable Unavailable Dille, E Inés DDS Unavailable Unavailable Dille, E Inés DDS Unavailable Unavailable REYNOLDS, Lizy GRANADOS MD Unavailable Unavailable REYNOLDS, Lizy GRANADOS MD Unavailable Unavailable REYNOLDS, Lizy GRANADOS MD Unavailable Unavailable REYNOLDS, Lizy GRANADOS MD Unavailable Unavailable REYNOLDS, Lizy GRANADOS MD Unavailable Unavailable REYNOLDS, Lizy GRANADOS MD Unavailable Unavailable REYNOLDS, Lizy GRANADOS MD Unavailable Unavailable REYNOLDS, Lizy GRANADOS MD Unavailable Unavailable REYNOLDS, Lizy GRANADOS MD Unavailable Unavailable REYNOLDS, Lizy GRANADOS MD Unavailable Unavailable REYNOLDS, Lizy GRANADOS MD Unavailable Unavailable REYNOLDS, Lizy GRANADOS MD Unavailable Unavailable REYNOLDS, Lizy GRANADOS MD Unavailable Unavailable REYNOLDS, Lizy GRANADOS MD Unavailable Unavailable REYNOLDS, Lizy GRANADOS MD Unavailable Unavailable REYNOLDS, Lizy GRANADOS MD Unavailable Unavailable REYNOLDS, Lizy GRANADOS MD Unavailable Unavailable REYNOLDS, Lizy GRANADOS MD Unavailable Unavailable REYNOLDS, Lizy GRANADOS MD Unavailable Unavailable REYNOLDS, Lizy GRANADOS MD Unavailable Unavailable REYNOLDS, Lizy GRANADOS MD Unavailable Unavailable REYNOLDS, Lizy GRANADOS MD Unavailable Unavailable REYNOLDS, Lizy GRANADOS MD Unavailable Unavailable REYNOLDS, Lizy GRANADOS MD Unavailable Unavailable REYNOLDS, Lizy GRANADOS MD Unavailable Unavailable REYNOLDS, Lizy GRANADOS MD Unavailable Unavailable REYNOLDS, Lizy GRANADOS MD Unavailable Unavailable REYNOLDS, Lizy GRANADOS MD Unavailable Unavailable REYNOLDS, Lizy GRANADOS MD Unavailable Unavailable REYNOLDS, Lizy GRANADOS MD Unavailable Unavailable REYNOLDS, Lizy GRANADOS MD Unavailable Unavailable REYNOLDS, Lizy GRANADOS MD Unavailable Unavailable REYNOLDS, Lizy GRANADOS MD Unavailable Unavailable REYNOLDS, iLzy GRANADOS MD Unavailable Unavailable REYNOLDS, Lizy GRANADOS MD Unavailable Unavailable REYNOLDS, Lizy GRANADOS MD Unavailable Unavailable REYNOLDS, Lizy GRANADOS MD Unavailable Unavailable REYNOLDS, Lizy GRANADOS MD Unavailable Unavailable REYNOLDS, Lizy GRANADOS MD Unavailable Unavailable REYNOLDS, Lizy GRANADOS MD Unavailable Unavailable REYNOLDS, Lizy GRANADOS MD Unavailable Unavailable REYNOLDS, Lizy GRANADOS MD Unavailable Unavailable REYNOLDS, Lizy GRANADOS MD Unavailable Unavailable REYNOLDS, Lizy GRANADOS MD Unavailable Unavailable REYNOLDS, Lizy GRANADOS MD Unavailable Unavailable REYNOLDS, Lizy GRANADOS MD Unavailable Unavailable REYNOLDS, Lizy GRANADOS MD Unavailable Unavailable REYNOLDS, Lizy GRANADOS MD Unavailable Unavailable REYNOLDS, Lizy GRANADOS MD Unavailable Unavailable REYNOLDS, Lizy GRANADOS MD Unavailable Unavailable REYNOLDS, Lizy GRANADOS MD Unavailable Unavailable REYNOLDS, Lizy GRANADOS MD Unavailable Unavailable REYNOLDS, Lizy GRANADOS MD Unavailable Unavailable REYNOLDS, Lizy GRANADOS MD Unavailable Unavailable REYNOLDS, Lizy GRANADOS MD Unavailable Unavailable REYNOLDS, Lizy GRANADOS MD Unavailable Unavailable REYNOLDS, Lizy GRANADOS MD Unavailable Unavailable REYNOLDS, Lizy GRANADOS MD Unavailable Unavailable REYNOLDS, Lizy GRANADOS MD Unavailable Unavailable REYNOLDS, Lizy GRANADOS MD Unavailable Unavailable REYNOLDS, Lizy GRANADOS MD Unavailable Unavailable REYNOLDS, Lizy GRANADOS MD Unavailable Unavailable REYNOLDS, Lizy GRANADOS MD Unavailable Unavailable REYNOLDS, Lizy GRANADOS MD Unavailable Unavailable REYNOLDS, Lizy GRANADOS MD Unavailable Unavailable REYNOLDS, Lizy GRANADOS MD Unavailable Unavailable REYNOLDS, Lizy GRANADOS MD Unavailable Unavailable REYNOLDS, Lizy GRANADOS MD Unavailable Unavailable REYNOLDS, Lizy GRANADOS MD Unavailable Unavailable REYNOLDS, Lizy GRANADOS MD Unavailable Unavailable REYNOLDS, Lizy GRANADOS MD Unavailable Unavailable REYNOLDS, Lizy GRANADOS MD Unavailable Unavailable REYNOLDS, Lizy GRANADOS MD Unavailable Unavailable REYNOLDS, Lizy GRANADOS MD Unavailable Unavailable REYNOLDS, Lizy GRANADOS MD Unavailable Unavailable REYNOLDS, Lizy GRANADOS MD Unavailable Unavailable REYNOLDS, Lizy GRANADOS MD Unavailable Unavailable REYNOLDS, Lizy GRANADOS MD Unavailable Unavailable REYNOLDS, Lizy GRANADOS MD Unavailable Unavailable REYNOLDS, Lizy GRANADOS MD Unavailable Unavailable REYNOLDS, Lizy GRANADOS MD Unavailable Unavailable REYNOLDS, Lizy GRANADOS MD Unavailable Unavailable REYNOLDS, Lizy GRANADOS MD Unavailable Unavailable REYNOLDS, Lizy GRANADOS MD Unavailable Unavailable REYNOLDS, Lizy GRANADOS MD Unavailable Unavailable REYNOLDS, Lizy GRANADOS MD Unavailable Unavailable REYNOLDS, Lizy GRANADOS MD Unavailable Unavailable REYNOLDS, Lizy GRANADOS MD Unavailable Unavailable REYNOLDS, Lizy GRANADOS MD Unavailable Unavailable REYNOLDS, Lizy GRANADOS MD Unavailable Unavailable REYNOLDS, Lizy GRANADOS MD Unavailable Unavailable REYNOLDS, Lizy GRANADOS MD Unavailable Unavailable REYNOLDS, Lizy GRANADOS MD Unavailable Unavailable REYNOLDS, Lizy GRANADOS MD Unavailable Unavailable REYNOLDS, Lizy GRANADOS MD Unavailable Unavailable REYNOLDS, Lizy GRANADOS MD Unavailable Unavailable REYNOLDS, Liyz GRANADOS MD Unavailable Unavailable REYNOLDS, Lizy GRANADOS MD Unavailable Unavailable REYNOLDS, Lizy GRANADOS MD Unavailable Unavailable REYNOLDS, Lizy GRANADOS MD Unavailable Unavailable REYNOLDS, Lizy GRANADOS MD Unavailable Unavailable REYNOLDS, Lizy GRANADOS MD Unavailable Unavailable REYNOLDS, Lizy GRANADOS MD Unavailable Unavailable REYNOLDS, Lizy GRANADOS MD Unavailable Unavailable REYNOLDS, Lizy GRANADOS MD Unavailable Unavailable REYNOLDS, Lizy GRANADOS MD Unavailable Unavailable REYNOLDS, Lizy GRANADOS MD Unavailable Unavailable REYNOLDS, Lizy GRANADOS MD Unavailable Unavailable REYNOLDS, Lizy GRANADOS MD Unavailable Unavailable REYNOLDS, Lizy GRANADOS MD Unavailable Unavailable REYNOLDS, Lizy GRANADOS MD Unavailable Unavailable REYNOLDS, Lizy GRANADOS MD Unavailable Unavailable REYNOLDS, Lizy GRANADOS MD Unavailable Unavailable REYNOLDS, Lizy GRANADOS MD Unavailable Unavailable REYNOLDS, Lizy GRANADOS MD Unavailable Unavailable Anatoliy Rosa MD Unavailable Unavailable Anatoliy Rosa MD Unavailable Unavailable Anatoliy Rosa MD Unavailable Unavailable Anatoliy Rosa MD Unavailable Unavailable Anatoliy Rosa MD Unavailable Unavailable Anatoliy Rosa MD Unavailable Unavailable Ali, Anatoliy MD Unavailable Unavailable Ali, Anatoliy MD Unavailable Unavailable Ali, Anatoliy MD Unavailable Unavailable Ali, Anatoliy MD Unavailable Unavailable Ali, Anatoliy MD Unavailable Unavailable Ali, Anatoliy MD Unavailable Unavailable Ali, Anatoliy MD Unavailable Unavailable Ali, Anatoliy MD Unavailable Unavailable Ali, Anatoliy MD Unavailable Unavailable Ali, Anatoliy MD Unavailable Unavailable Ali, Anatoliy MD Unavailable Unavailable Ali, Anatoliy MD Unavailable Unavailable Ali, Anatoliy MD Unavailable Unavailable Ali, Anatoliy MD Unavailable Unavailable Ali, Anatoliy MD Unavailable Unavailable Ali, Anatoliy MD Unavailable Unavailable Ali, Anatoliy MD Unavailable Unavailable Ali, Anatoliy MD Unavailable Unavailable Ali, Anatoliy MD Unavailable Unavailable Ali, Anatoliy MD Unavailable Unavailable Ali, Anatoliy MD Unavailable Unavailable Ali, Anatoliy MD Unavailable Unavailable Ali, Anatoliy MD Unavailable Unavailable Ali, Anatoliy MD Unavailable Unavailable Ali, Anatoliy MD Unavailable Unavailable Ali, Anatoliy MD Unavailable Unavailable Ali, Anatoliy MD Unavailable Unavailable Ali, Anatoliy MD Unavailable Unavailable Ali, Anatoliy MD Unavailable Unavailable Ali, Anatoliy MD Unavailable Unavailable Ali, Anatoliy MD Unavailable Unavailable Ali, Anatoliy MD Unavailable Unavailable Ali, Anatoliy MD Unavailable Unavailable Ali, Anatoliy MD Unavailable Unavailable Ali, Anatoliy MD Unavailable Unavailable Ali, Anatoliy MD Unavailable Unavailable Ali, Anatoliy MD Unavailable Unavailable Ali, Anatoliy MD Unavailable Unavailable Ali, Anatoliy MD Unavailable Unavailable Ali, Anatoliy MD Unavailable Unavailable Ali, Anatoliy MD Unavailable Unavailable Ali, Anatoliy MD Unavailable Unavailable Ali, Anatoliy MD Unavailable Unavailable Re-disclosure Warning The records that you are about to access may contain information from federally-assisted alcohol or drug abuse programs. If such information is present, then the following federally mandated warning applies: This information has been disclosed to you from records protected by federal confidentiality rules (42 CFR part 2). The federal rules prohibit you from making any further disclosure of this information unless further disclosure is expressly permitted by the written consent of the person to whom it pertains or as otherwise permitted by 42 CFR part 2. A general authorization for the release of medical or other information is NOT sufficient for this purpose. The Federal rules restrict any use of the information to criminally investigate or prosecute any alcohol or drug abuse patient.The records that you are about to access may contain highly sensitive health information, the redisclosure of which is protected by Article 27-F of the [place] State Public Health law. If you continue you may have access to information: Regarding HIV / AIDS; Provided by facilities licensed or operated by the [facility] Mental [facility]; or Provided by the [facility] Office for People With Developmental Disabilities. If such information is present, then the following [facility] mandated warning applies: This information has been disclosed to you from confidential records which are protected by state law. State law prohibits you from making any further disclosure of this information without the specific written consent of the person to whom it pertains, or as otherwise permitted by law. Any unauthorized further disclosure in violation of state law may result in a fine or care home sentence or both. A general authorization for the release of medical or other information is NOT sufficient authorization for further disc losure. Allergies and Adverse Reactions Type Description Substance Reaction Status Data Source(s ) Substance/Environmental Agent Allergy Substance/Environmenta l Agent Allergy Trimethoprim MEDENT ([facility] ) Substance/Environmental Agent Allergy Substance/Environmenta l Agent Allergy Sulfamethoxazole Anyphylaxis Severe MEDENT ([facility]) Adverse Reaction Adverse Reaction Morphine ME DENT ([facility]) Drug allergy Morphine Sulfate Morphine IV = BURNING AN D ITCHING BUT CAN TAKE WITH BENADRYL Active eCW1 ([facility]) Drug allergy Bactrim sulfamethoxazole / trimethoprim Anaphylaxis Active eCW1 ([facility]) Drug allergy Vancomycin HCl Vancomycin itching "I want to rip my skin off" Active eCW1 ([facility]) Drug allergy Fentanyl Fentanyl itching "I want to rip my skin off " Active eCW1 ([facility]) Drug allergy Levaquin Drug allergy IV pruritis, redness Active eCW1 ([facility]) Drug allergy Penicillin V Potassium Penicillin V Rash Active [facility]CW[facility] [facility] tetracycline Tetracycline HCl Tetracycline Rash Active eCW1 ([facility]) Erythromycin Erythromycin Erythromycin Rash Active eCW1 ([facility]) duracef duracef duracef Rash Active eCW1 ([facility]) Adhesive Bandages Adhesive Bandages Adhesive Bandages rash,blisters Active eCW1 ([facility]) duracef duracef duracef Rash Active eCW1 ([facility]) Adhesive Bandages Adhesive Bandages Adhesive Bandages rash,blisters Active eCW1 ([facility]) duracef duracef duracef Rash Active eCW1 ([facility]) Adhesive Bandages Adhesive Bandages Adhesive Bandages rash,blisters Active eCW1 ([facility]) Levaquin Levaquin Levofloxacin 750 MG Oral Tablet [Levaquin] IV pruritis, redness Active eCW1 ([facility]) duracef duracef duracef Rash Active eCW1 ([facility]) Adhesive Bandages Adhesive Bandages Adhesive Bandages rash,blisters Active eCW1 ([facility]) duracef duracef duracef Rash Active eCW1 ([facility]) Adhesive Bandages Adhesive Bandages Adhesive Bandages rash,blisters Active eCW1 ([facility]) Family History Family Member Name Family Member Gender Family Member Status Date o f Status Description Data Source(s) Unknown Unknown Problem MEDENT ([facility] ) Mother Encounters Encounter Providers Location Date Indications Data Source(s ) Outpatient Attender: KARLA FRANOC MD 07/15/2020 12:00:00 A [facility] O Attender: Cezar LOPEZ 06/28/19 08:58:29 AM [facility] 06/28/2020 09:20:16 AM EST Nilda ([facility] ) Outpatient Attender: Audrey LOPEZ SJLandon.REMIGIO-[email or web address].REMIGIO 04/2021 12:00:00 AM [facility] - 06/26/2020 01:07:[address] [facility] Outpatient Referrer: Rufina Chong MD [id number] 06/23/2020 12:00:00 A [facility] [place] [address] [facility] [address] 06/18/2020 12:00:00 AM EST eCW1 ([facility]) [place] [address] [facility] [address] 06/12/2020 12:00:00 AM EST eCW1 ([facility]) Out[place] [address] [facility] [address] 06/11/2020 12:00:00 AM EST eCW1 ([facility]) Outpatient [address] [facility] [address] 06/11/2020 12:00:00 AM EST [facility] Outpatient Attender: KARLA FRANCO MDReferrer: KARLA FRANCO MD 06/11/2020 12:00:00 AM EST [facility] Unknown [address] [facility] [place] [address] 06/09/2020 12:00:00 AM EST eCW1 ([facility]) Unknown [address] [facility] [address] 06/05/2020 12:00:00 AM EST eCW1 [facility] Unknown [address] [facility] [address] 06/04/2020 12:00:00 AM EST [facility]CW1 [facility]) (PN Proc 60) Pain Procedure 60 [address] [place] [address] 05/27/2020 12:00:00 AM EST eCW1 [facility] Unknown [address] [facility] [address] 05/26/2020 12:00:00 AM EST eCW1 [facility] Unknown [address] [facility] [address] 05/25/2020 12:00:00 AM EST eCW1 [facility] Outpatient [address] [facility] [address] 05/22/2020 12:00:00 AM EST eCW1 ([facility] Outpatient [address] [facility] [address] 05/21/2020 12:00:00 AM EST eCW1 ([facility]) ([facility]) [facility] Scheduled Visit [address] [place] [address] 05/20/2020 12:00:00 AM EST eCW1 ([facility]) Unknown [address] [facility] [place] [address] 05/06/2020 12:00:00 AM EST eCW1 ([facility]) Unknown [address] [facility] [place] [address] 05/06/2020 12:00:00 AM EST eCW1 ([facility]) Unknown [address] [facility] [place] [address] 05/05/2020 12:00:00 AM EST eCW1 ([facility]) Unknown [address] [facility] [place] [address] 04/21/2020 12:00:00 AM EST eCW1 ([facility]) Outpatient Attender: KARLA FRANCO MD 04/15/2020 12:00:00 A M [facility] ([facility]) [facility] Scheduled Visit [address] [place] [address] 04/08/2020 12:00:00 AM EST eCW1 ([facility]) Unknown [address] [facility] [place] [address] 04/08/2020 12:00:00 AM EST eCW1 ([facility]) Outpatient [address] [facility] [address] 04/08/2020 12:00:00 AM EST eCW1 ([facility]) Unknown [address] [facility] [address] 04/01/2020 12:00:00 AM EST eCW1 ([facility]) Outpatient Attender: DEFAULT / GENE SHAHLA / UNKNOWN PROVIDER ALIASES Referrer: KARLA FRANCO MD [id number] 03/31/2020 12:00:00 AM T - 04/01/2020 12:00:00 AM [facility] Outpatient Referrer: Rufina Chong MD 6WCC-PATCC 03/31/2020 12:00:00 A M [facility] (PN Proc 45) Pain Procedure 45 [address] [place] [address] 03/23/2020 12:00:00 AM EST eCW1 ([facility] Unknown [address] [facility] [address] 03/20/2020 12:00:00 AM EST eCW1 [facility]) Outpatient Attender: Inés Baca CASEY CESPEDES 03/19/2020 03:38:01 P M [facility] Outpatient Attender: Inés Baca CASEY GALVAN 03/18/2020 11:27:00 A M [facility] Outpatient Attender: Inés Baca CASEY GALVAN 03/18/2020 08:38:01 A M [facility] ([facility]) [facility] Scheduled Visit [address] [place] [address] 03/10/2020 12:00:00 AM EDT eCW1 ([facility]) Outpatient [address] [facility] [address] 03/09/2020 12:00:00 AM EDT eCW1 ([facility]) Outpatient [address] [facility] [address] 03/06/2020 12:00:00 AM EDT eCW1 ([facility]) Office Visit, Est Pt., Level 4 PC [address] [place] [address] 02/28/2020 12:00:00 AM EDT eCW1 ([facility]) Outpatient Attender: Lissy Mouraerrer: Rufina Chong MD 02/19/2020 09:10:52 AM EDT [facility] ([facility]) [facility] Scheduled Visit [address] [place] [address] 02/14/2020 12:00:00 AM EDT eCW1 ([facility]) Unknown [address] [facility] [address] 02/13/2020 12:00:00 AM EDT eCW1 ([facility]) Outpatient Attender: Anatoliy Rosa MD Main office - [place] 02/05/2020 11:00:00 AM EDT MEDENT ([facility]) Outpatient Attender: Sergio KEMP SJP.REMIGIO-SJP.REMIGIO 0 09:27:18 AM EDT - 02/05/2020 10:18:22 AM EDT [facility] Outpatient Attender: Inés Baca CASEY WATNDC 01/15/2020 01:08:02 P M EDT [facility] Outpatient Attender: Inés Baca GUMEBree WATND 01/15/2020 11:36:02 A M EDT [facility] Outpatient Attender: Arabella LYON PA-C Physical Therapy 12/04/2019 05:30:00 PM EDT MEDENT ([facility]) Unknown [address] [facility] [address] 12/02/2019 12:00:00 AM EDT eCW1 ([facility]) Unknown [facility] [address] 12/02/2019 12:00:00 AM EDT eCW1 ([facility]) Outpatient Attender: ESHA BUENO MD 11/29/2019 09:29:00 A M EDT [facility] Outpatient Referrer: DAVID LY NP 11/27/2019 1 2:00:00 AM EDT Pain in right [facility] Pain in right shoulder Outpatient Referrer: DAVID LY NP 11/27/2019 1 2:00:00 AM EDT Pain in right [facility] Pain in right shoulder ([facility]) [facility] Scheduled Visit [address] [place] [phone] 11/25/2019 12:00:00 AM EDT eCW1 ([facility]) Outpatient Attender: Anatoliy Rosa MD Main office - [place] 11/19/2019 02:00:00 PM EDT MEDENT ([facility]) Outpatient Attender: DAVID LY NP [id number] 10/2019 12:00:00 AM EDT - 2019 02:18:36 PM EDT Pain in right [facility] in right shoulder Outpatient Referrer: DAVID LY NP 2019 1 2:00:00 AM EDT Pain in right shoulder [facility] Pain in right shoulder Outpatient Attender: ESHA HUYNH 11/13/2019 10:09:00 A M EDT [facility] Outpatient Referrer: ROBERTA REYNOLDS MD 11/11/2019 01:46:00 PM EDT [facility] [address] [address] 11/08/2019 12:00:00 AM EDT eCW1 ([facility]) Outpatient Attender: ROBERTA REYNOLDS MDReferrer: Rufina ortiz MD 11/06/2019 08:14:23 AM EDT [facility] [address] [address] 10/31/2019 12:00:00 AM EDT eCW1 ([facility]) Outpatient Attender: DAVID LY NP 10/31/2019 12:00:0 0 AM EDT [address] [address] 10/18/2019 12:00:00 AM EDT eCW1 ([facility]) Outpatient Referrer: Sandip Blanchard MD 10/17/2019 04:46:00 AM EDT [facility] Outpatient Attender: ROBERTA HYLTONeferrer: Rufina ortiz MD 10/10/2019 10:54:26 AM EDT [facility] Recurring Patient Referrer: Rufina Chong MD 10/08/2019 01: 07:16 PM EDT [facility] [address], [facility] [address] 10/08/2019 12:00:00 AM EDT eCW1 ([facility]) [address] [address] 10/04/2019 12:00:00 AM EDT eCW1 ([facility]) Outpatient Referrer: Audrey BERNARDO.REMIGIO-SJNaomyREMIGIO 12:00:[address] [facility] Recurring Patient Referrer: Rufina Chong MD 09/23/2019 03: 50:23 PM EDT [facility] [address] [address] 09/17/2019 12:00:00 AM EDT eCW1 ([facility]) [facility] [address] [place] [address] [place] [address] 09/10/2019 12:00:00 AM EDT eCW1 ([facility]) [address] [place] [address] 09/09/2019 12:00:00 AM EDT eCW1 ([facility]) [address] Y [address] 09/09/2019 12:00:00 AM EDT eCW1 ([facility] [address] [address] 09/02/2019 12:00:00 AM EDT eCW1 ([facility]) [address] Y [address] 08/29/2019 12:00:00 AM EDT eCW1 ([facility]) Outpatient [address] [facility] [place] [address] 08/29/2019 12:00:00 AM EDT eCW1 ([facility]) Unknown [address] [facility] [place] [address] 08/20/2019 12:00:00 AM EDT eCW1 ([facility]) Unknown [address] [facility] [place] [address] 08/20/2019 12:00:00 AM EDT eCW1 ([facility]) Outpatient Referrer: Sandip Blanchard MD 08/07/2019 06:14:00 AM EDT [facility] Outpatient Attender: ESHA HUYNH 08/06/2019 09:01:05 P M EDT [facility] Outpatient Attender: ROBERTA REYNOLDS MDReferrer: Rufina ortiz MD 07/25/2019 01:17:30 PM EDT [facility] Recurring Patient Referrer: Rufina Chong MD 07/18/2019 09: 18:23 AM EST [facility] Recurring Patient Referrer: Rufina Chong MD 07/18/2019 09: 15:16 AM EST [facility] Recurring Patient Referrer: IRINA VIEYRA MD 07/18/2019 09:1 2:32 AM EST [facility] [address] [address] 07/18/2019 12:00:00 AM EST eCW1 ([facility]) Recurring Patient Referrer: IRINA VIEYRA MD 07/16/2019 08:2 7:04 AM EST [facility] Recurring Patient Referrer: IRINA VIEYRA MD 07/16/2019 08:2 4:21 AM EST [facility] Recurring Patient Referrer: IRINA VIEYRA MD 07/16/2019 08:2 3:59 AM EST [facility] [address] [address] 07/16/2019 12:00:00 AM EST eCW1 ([facility]) [address] [address] 07/16/2019 12:00:00 AM EST eCW1 ([facility]) [address] [address] 07/16/2019 12:00:00 AM EST eCW1 ([facility]) [address] [address] 07/09/2019 12:00:00 AM EST eCW1 ([facility]) Outpatient Attender: Audrey VELÁSQUEZREMIGIO-SJP.REMIGIO 10/2019 08:49:51 AM EST - 06/20/2019 09:40:16 AM EST [address] [place] [address] 06/12/2019 12:00:00 AM EST eCW1 ([facility]) Outpatient Referrer: Sandip Blanchard MD 06/04/2019 07:26:00 PM EST [facility] [address] [facility] [place] [address] 06/04/2019 12:00:00 AM EST eCW1 ([facility]) [facility] [address] [place] [address] 05/17/2019 12:00:00 AM EST eCW1 ([facility]) [address] [address] 05/16/2019 12:00:00 AM EST eCW1 ([facility]) [address] [address] 05/14/2019 12:00:00 AM EST eCW1 ([facility]) [address] [address] 05/03/2019 12:00:00 AM EST eCW1 ([facility]) Outpatient Attender: KARLA FRANCO MDReferrer: DAVID TAMAYO [employer] [id number] 02/08/2018 12:00:00 AM EDT - 02/08/2018 02:17:32 PM EDT Morbid (severe) obesity due to excess calories [facility] Morbid (severe) obesity due to excess ca lories Immunizations Vaccine Date Status Description Data Source(s) influenza, recombinant, quadrIvalent,injectable, prese rvative free 02/28/2020 02:56:00 PM EDT completed eCW1 ([facility] influenza, recombinant, quadrIvalent,injectable, prese rvative free 02/28/2020 02:56:00 PM EDT completed eCW1 ([facility]) influenza, recombinant, quadrIvalent,injectable, prese rvative free 02/28/2020 02:56:00 PM EDT completed eCW1 ([facility]) influenza, recombinant, quadrIvalent,injectable, prese rvative free 02/28/2020 02:56:00 PM EDT completed eCW1 ([facility]) influenza, recombinant, quadrIvalent,injectable, prese rvative free 02/28/2020 02:56:00 PM EDT completed eCW1 ([facility]) influenza, recombinant, quadrIvalent,injectable, prese rvative free 02/28/2020 02:56:00 PM EDT completed eCW1 ([facility]) influenza, recombinant, quadrIvalent,injectable, prese rvative free 02/28/2020 02:56:00 PM EDT completed eCW1 ([facility]) influenza, recombinant, quadrIvalent,injectable, prese rvative free 02/28/2020 02:56:00 PM EDT completed eCW1 ([facility]) influenza, recombinant, quadrIvalent,injectable, prese rvative free 02/28/2020 02:56:00 PM EDT completed eCW1 ([facility]) influenza, recombinant, quadrIvalent,injectable, prese rvative free 02/28/2020 02:56:00 PM EDT completed eCW1 ([facility]) influenza, recombinant, quadrIvalent,injectable, prese rvative free 02/28/2020 02:56:00 PM EDT completed eCW1 ([facility]) influenza, recombinant, quadrIvalent,injectable, prese rvative free 02/28/2020 02:56:00 PM EDT completed eCW1 ([facility]) influenza, recombinant, quadrIvalent,injectable, prese rvative free 02/28/2020 02:56:00 PM EDT completed eCW1 ([facility]) influenza, recombinant, quadrIvalent,injectable, prese rvative free 02/28/2020 02:56:00 PM EDT completed eCW1 ([facility]) influenza, recombinant, quadrIvalent,injectable, prese rvative free 02/28/2020 02:56:00 PM EDT completed eCW1 ([facility]) influenza, recombinant, quadrIvalent,injectable, prese rvative free 02/28/2020 02:56:00 PM EDT completed eCW1 ([facility]) influenza, recombinant, quadrIvalent,injectable, prese rvative free 02/28/2020 02:56:00 PM EDT completed eCW1 ([facility]) influenza, recombinant, quadrIvalent,injectable, prese rvative free 02/28/2020 02:56:00 PM EDT completed eCW1 ([facility]) influenza, recombinant, quadrIvalent,injectable, prese rvative free 02/28/2020 02:56:00 PM EDT completed eCW1 ([facility]) influenza, recombinant, quadrIvalent,injectable, prese rvative free 02/28/2020 02:56:00 PM EDT completed eCW1 ([facility]) influenza, recombinant, quadrIvalent,injectable, prese rvative free 02/28/2020 02:56:00 PM EDT completed eCW1 ([facility]) influenza, recombinant, quadrIvalent,injectable, prese rvative free 02/28/2020 02:56:00 PM EDT completed eCW1 ([facility]) influenza, recombinant, quadrIvalent,injectable, prese rvative free 02/28/2020 02:56:00 PM EDT completed eCW1 ([facility]) influenza, recombinant, quadrIvalent,injectable, prese rvative free 02/28/2020 02:56:00 PM EDT completed eCW1 ([facility]) influenza, recombinant, quadrIvalent,injectable, prese rvative free 02/28/2020 02:56:00 PM EDT completed eCW1 ([facility]) influenza, recombinant, quadrIvalent,injectable, prese rvative free 02/28/2020 02:56:00 PM EDT completed eCW1 ([facility]) influenza, recombinant, quadrIvalent,injectable, prese rvative free 02/28/2020 02:56:00 PM EDT completed eCW1 ([facility]) Medications Medication Brand Name Start Date Product Form Dose Route Admi nistrative Instructions Pharmacy Instructions Status Indications Reaction Description Data Source(s) 24 HR Oxybutynin chloride 10 MG Extended Release Oral Tablet Oxybutynin Chloride ER 10 MG Oxybutynin Chloride ER 10 MG 06/17/2020 12:00:00 AM EST 1.0 {tablet} active Oxybutynin Chloride ER 1 0 MG eCW1 ([facility]) 24 HR Oxybutynin chloride 10 MG Extended Release Oral Tablet Oxybutynin Chloride ER 10 MG Oxybutynin Chloride ER 10 MG 06/17/2020 12:00:00 AM EST 1.0 {tablet} active Oxybutynin Chloride ER 1 0 MG eCW1 ([facility]) 24 HR Oxybutynin chloride 10 MG Extended Release Oral Tablet Oxybutynin Chloride ER 10 MG Oxybutynin Chloride ER 10 MG 06/17/2020 12:00:00 AM EST 1.0 {tablet} active Oxybutynin Chloride ER 1 0 MG eCW1 ([facility]) Myrbetriq 50 MG UNK 05/25/2020 12:00:00 AM EST 1.0 {tablet} suspended Myrbetriq 50 MG eCW1 ([facility]) Myrbetriq 50 MG UNK 05/25/2020 12:00:00 AM EST 1.0 {tablet} suspended Myrbetriq 50 MG eCW1 ([facility]) Myrbetriq 50 MG UNK 05/25/2020 12:00:00 AM EST 1.0 {tablet} active Myrbetriq 50 MG eCW1 ([facility]) Myrbetriq 50 MG UNK 05/25/2020 12:00:00 AM EST 1.0 {tablet} active Myrbetriq 50 MG eCW1 ([facility]) Myrbetriq 50 MG UNK 05/25/2020 12:00:00 AM EST 1.0 {tablet} suspended Myrbetriq 50 MG eCW1 ([facility]) Myrbetriq 50 MG UNK 05/25/2020 12:00:00 AM EST 1.0 {tablet} active Myrbetriq 50 MG eCW1 ([facility]) Myrbetriq 50 MG UNK 05/25/2020 12:00:00 AM EST 1.0 {tablet} active Myrbetriq 50 MG eCW1 ([facility]) Myrbetriq 50 MG UNK 05/25/2020 12:00:00 AM EST 1.0 {tablet} suspended Myrbetriq 50 MG eCW1 ([facility]) Myrbetriq 50 MG UNK 05/25/2020 12:00:00 AM EST 1.0 {tablet} active Myrbetriq 50 MG eCW1 ([facility]) Myrbetriq 50 MG UNK 05/25/2020 12:00:00 AM EST 1.0 {tablet} active Myrbetriq 50 MG eCW1 ([facility]) Myrbetriq 50 MG UNK 05/25/2020 12:00:00 AM EST 1.0 {tablet} suspended Myrbetriq 50 MG eCW1 ([facility]) Acetaminophen 300 MG / Codeine Phosphate 60 MG Oral Tablet Acetaminophen-Codeine #4 300-60 MG Acetaminophen-Codeine #4 300-60 MG 05/13/2020 12:00:00 AM EST 1.0 {tablet_as_needed} active Acetamino phen-Codeine #4 300-60 MG eCW1 ([facility]) Acetaminophen 300 MG / Codeine Phosphate 60 MG Oral Tablet Acetaminophen-Codeine #4 300-60 MG Acetaminophen-Codeine #4 300-60 MG 05/13/2020 12:00:00 AM EST 1.0 {tablet_as_needed} active Acetamino phen-Codeine #4 300-60 MG eCW1 ([facility]) Acetaminophen 300 MG / Codeine Phosphate 60 MG Oral Tablet Acetaminophen-Codeine #4 300-60 MG Acetaminophen-Codeine #4 300-60 MG 05/13/2020 12:00:00 AM EST 1.0 {tablet_as_needed} active Acetamino phen-Codeine #4 300-60 MG eCW1 ([facility]) Acetaminophen 300 MG / Codeine Phosphate 60 MG Oral Tablet Acetaminophen-Codeine #4 300-60 MG Acetaminophen-Codeine #4 300-60 MG 05/13/2020 12:00:00 AM EST 1.0 {tablet_as_needed} active Acetamino phen-Codeine #4 300-60 MG eCW1 ([facility]) Acetaminophen 300 MG / Codeine Phosphate 60 MG Oral Tablet Acetaminophen-Codeine #4 300-60 MG Acetaminophen-Codeine #4 300-60 MG 05/13/2020 12:00:00 AM EST 1.0 {tablet_as_needed} active Acetamino phen-Codeine #4 300-60 MG eCW1 ([facility]) Acetaminophen 300 MG / Codeine Phosphate 60 MG Oral Tablet Acetaminophen-Codeine #4 300-60 MG Acetaminophen-Codeine #4 300-60 MG 05/13/2020 12:00:00 AM EST 1.0 {tablet_as_needed} active Acetamino phen-Codeine #4 300-60 MG eCW1 ([facility]) Acetaminophen 300 MG / Codeine Phosphate 60 MG Oral Tablet Acetaminophen-Codeine #4 300-60 MG Acetaminophen-Codeine #4 300-60 MG 05/13/2020 12:00:00 AM EST 1.0 {tablet_as_needed} active Acetamino phen-Codeine #4 300-60 MG eCW1 ([facility]) Acetaminophen 300 MG / Codeine Phosphate 60 MG Oral Tablet Acetaminophen-Codeine #4 300-60 MG Acetaminophen-Codeine #4 300-60 MG 05/13/2020 12:00:00 AM EST 1.0 {tablet_as_needed} active Acetamino phen-Codeine #4 300-60 MG eCW1 ([facility]) Acetaminophen 300 MG / Codeine Phosphate 60 MG Oral Tablet Acetaminophen-Codeine #4 300-60 MG Acetaminophen-Codeine #4 300-60 MG 05/13/2020 12:00:00 AM EST 1.0 {tablet_as_needed} active Acetamino phen-Codeine #4 300-60 MG eCW1 ([facility]) Acetaminophen 300 MG / Codeine Phosphate 60 MG Oral Tablet Acetaminophen-Codeine #4 300-60 MG Acetaminophen-Codeine #4 300-60 MG 05/13/2020 12:00:00 AM EST 1.0 {tablet_as_needed} active Acetamino phen-Codeine #4 300-60 MG eCW1 ([facility]) Acetaminophen 300 MG / Codeine Phosphate 60 MG Oral Tablet Acetaminophen-Codeine #4 300-60 MG Acetaminophen-Codeine #4 300-60 MG 05/13/2020 12:00:00 AM EST 1.0 {tablet_as_needed} active Acetamino phen-Codeine #4 300-60 MG eCW1 ([facility]) Acetaminophen 300 MG / Codeine Phosphate 60 MG Oral Tablet Acetaminophen-Codeine #4 300-60 MG Acetaminophen-Codeine #4 300-60 MG 05/13/2020 12:00:00 AM EST 1.0 {tablet_as_needed} active Acetamino phen-Codeine #4 300-60 MG eCW1 ([facility]) Acetaminophen 300 MG / Codeine Phosphate 60 MG Oral Tablet Acetaminophen-Codeine #4 300-60 MG Acetaminophen-Codeine #4 300-60 MG 05/13/2020 12:00:00 AM EST 1.0 {tablet_as_needed} active Acetamino phen-Codeine #4 300-60 MG eCW1 ([facility]) Acetaminophen 300 MG / Codeine Phosphate 60 MG Oral Tablet Acetaminophen-Codeine #4 300-60 MG Acetaminophen-Codeine #4 300-60 MG 05/13/2020 12:00:00 AM EST 1.0 {tablet_as_needed} active Acetamino phen-Codeine #4 300-60 MG eCW1 ([facility]) apixaban 2.5 MG Oral Tablet [Eliquis] Eliquis 2.5 MG Eliquis 2.5 MG 05/06/2020 12:00:00 AM EST 1.0 {tablet} active El iquis 2.5 MG eCW1 ([facility]) apixaban 2.5 MG Oral Tablet [Eliquis] Eliquis 2.5 MG Eliquis 2.5 MG 05/06/2020 12:00:00 AM EST 1.0 {tablet} active El iquis 2.5 MG eCW1 ([facility]) apixaban 2.5 MG Oral Tablet [Eliquis] Eliquis 2.5 MG Eliquis 2.5 MG 05/06/2020 12:00:00 AM EST 1.0 {tablet} active El iquis 2.5 MG eCW1 ([facility]) apixaban 2.5 MG Oral Tablet [Eliquis] Eliquis 2.5 MG Eliquis 2.5 MG 05/06/2020 12:00:00 AM EST 1.0 {tablet} active El iquis 2.5 MG eCW1 ([facility]) apixaban 2.5 MG Oral Tablet [Eliquis] Eliquis 2.5 MG Eliquis 2.5 MG 05/06/2020 12:00:00 AM EST 1.0 {tablet} active El iquis 2.5 MG eCW1 ([facility]) apixaban 2.5 MG Oral Tablet [Eliquis] Eliquis 2.5 MG Eliquis 2.5 MG 05/06/2020 12:00:00 AM EST 1.0 {tablet} active El iquis 2.5 MG eCW1 ([facility]) apixaban 2.5 MG Oral Tablet [Eliquis] Eliquis 2.5 MG Eliquis 2.5 MG 05/06/2020 12:00:00 AM EST 1.0 {tablet} active El iquis 2.5 MG eCW1 ([facility]) apixaban 2.5 MG Oral Tablet [Eliquis] Eliquis 2.5 MG Eliquis 2.5 MG 05/06/2020 12:00:00 AM EST 1.0 {tablet} active El iquis 2.5 MG eCW1 ([facility]) apixaban 2.5 MG Oral Tablet [Eliquis] Eliquis 2.5 MG Eliquis 2.5 MG 05/06/2020 12:00:00 AM EST 1.0 {tablet} active El iquis 2.5 MG eCW1 ([facility]) apixaban 2.5 MG Oral Tablet [Eliquis] Eliquis 2.5 MG Eliquis 2.5 MG 05/06/2020 12:00:00 AM EST 1.0 {tablet} active El iquis 2.5 MG eCW1 ([facility]) apixaban 2.5 MG Oral Tablet [Eliquis] Eliquis 2.5 MG Eliquis 2.5 MG 05/06/2020 12:00:00 AM EST 1.0 {tablet} active El iquis 2.5 MG eCW1 ([facility]) apixaban 2.5 MG Oral Tablet [Eliquis] Eliquis 2.5 MG Eliquis 2.5 MG 05/06/2020 12:00:00 AM EST 1.0 {tablet} active El iquis 2.5 MG eCW1 ([facility]) apixaban 2.5 MG Oral Tablet [Eliquis] Eliquis 2.5 MG Eliquis 2.5 MG 05/06/2020 12:00:00 AM EST 1.0 {tablet} active El iquis 2.5 MG eCW1 ([facility]) apixaban 2.5 MG Oral Tablet [Eliquis] Eliquis 2.5 MG Eliquis 2.5 MG 05/06/2020 12:00:00 AM EST 1.0 {tablet} active El iquis 2.5 MG eCW1 ([facility]) apixaban 2.5 MG Oral Tablet [Eliquis] Eliquis 2.5 MG Eliquis 2.5 MG 05/06/2020 12:00:00 AM EST 1.0 {tablet} active El iquis 2.5 MG eCW1 ([facility]) apixaban 2.5 MG Oral Tablet [Eliquis] Eliquis 2.5 MG Eliquis 2.5 MG 05/06/2020 12:00:00 AM EST 1.0 {tablet} active El iquis 2.5 MG eCW1 ([facility]) Aimovig 140 MG/ML Subcutaneous Solution Auto-injector 91272- 843-01 03/11/2020 12:00:00 AM EDT 1 mL Subcutaneous active Inject 1 mL into the skin every 30 (thirty) days [facility] 24 HR Bupropion Hydrochloride 150 MG Ext ended Release Oral Tablet [Wellbutrin] Wellbutrin XL 150 MG Wellbutrin XL 150 MG 02/28/2020 12:00:00 AM EDT 1.0 {tablet_in_the_morning} active Wellbutr in XL 150 MG eCW1 ([facility]) gabapentin 600 MG Oral Tablet Gabapentin 600 MG Gabapentin 6 00 MG 02/28/2020 12:00:00 AM EDT 1.0 {tablet} active Ga bapentin 600 MG eCW1 ([facility]) 24 HR Bupropion Hydrochloride 150 MG Ext ended Release Oral Tablet [Wellbutrin] Wellbutrin XL 150 MG Wellbutrin XL 150 MG 02/28/2020 12:00:00 AM EDT 1.0 {tablet_in_the_morning} active Wellbutr in XL 150 MG eCW1 ([facility]) gabapentin 600 MG Oral Tablet Gabapentin 600 MG Gabapentin 6 00 MG 02/28/2020 12:00:00 AM EDT 1.0 {tablet} active Ga bapentin 600 MG eCW1 ([facility]) Amoxicillin 500 MG Oral Capsule Amoxicillin 500 MG 02/28/2020 12:00 :00 AM EDT suspended Amoxicillin 500 MG eCW 1 ([facility]) gabapentin 600 MG Oral Tablet Gabapentin 600 MG Gabapentin 6 00 MG 02/28/2020 12:00:00 AM EDT 1.0 {tablet} active Ga bapentin 600 MG eCW1 ([facility]) Amoxicillin 500 MG Oral Capsule Amoxicillin 500 MG 02/28/2020 12:00 :00 AM EDT suspended Amoxicillin 500 MG eCW 1 ([facility]) gabapentin 600 MG Oral Tablet Gabapentin 600 MG Gabapentin 6 00 MG 02/28/2020 12:00:00 AM EDT 1.0 {tablet} active Ga bapentin 600 MG eCW1 ([facility]) 24 HR Bupropion Hydrochloride 150 MG Ext ended Release Oral Tablet [Wellbutrin] Wellbutrin XL 150 MG Wellbutrin XL 150 MG 02/28/2020 12:00:00 AM EDT 1.0 {tablet_in_the_morning} active Wellbutr in XL 150 MG eCW1 ([facility]) gabapentin 600 MG Oral Tablet Gabapentin 600 MG Gabapentin 6 00 MG 02/28/2020 12:00:00 AM EDT 1.0 {tablet} active Ga bapentin 600 MG eCW1 ([facility]) Amoxicillin 500 MG Oral Capsule Amoxicillin 500 MG 02/28/2020 12:00 :00 AM EDT suspended Amoxicillin 500 MG eCW 1 ([facility]) gabapentin 600 MG Oral Tablet Gabapentin 600 MG Gabapentin 6 00 MG 02/28/2020 12:00:00 AM EDT 1.0 {tablet} active Ga bapentin 600 MG eCW1 ([facility]) gabapentin 600 MG Oral Tablet Gabapentin 600 MG Gabapentin 6 00 MG 02/28/2020 12:00:00 AM EDT 1.0 {tablet} active Ga bapentin 600 MG eCW1 ([facility]) Amoxicillin 500 MG Oral Capsule Amoxicillin 500 MG 02/28/2020 12:00 :00 AM EDT active Amoxicillin 500 MG eCW1 ([facility]) Amoxicillin 500 MG Oral Capsule Amoxicillin 500 MG 02/28/2020 12:00 :00 AM EDT active Amoxicillin 500 MG eCW1 ([facility]) 24 HR Bupropion Hydrochloride 150 MG Ext ended Release Oral Tablet [Wellbutrin] Wellbutrin XL 150 MG Wellbutrin XL 150 MG 02/28/2020 12:00:00 AM EDT 1.0 {tablet_in_the_morning} active Wellbutr in XL 150 MG eCW1 ([facility]) 24 HR Bupropion Hydrochloride 150 MG Ext ended Release Oral Tablet [Wellbutrin] Wellbutrin XL 150 MG Wellbutrin XL 150 MG 02/28/2020 12:00:00 AM EDT 1.0 {tablet_in_the_morning} active Wellbutr in XL 150 MG eCW1 ([facility]) gabapentin 600 MG Oral Tablet Gabapentin 600 MG Gabapentin 6 00 MG 02/28/2020 12:00:00 AM EDT 1.0 {tablet} active Ga bapentin 600 MG eCW1 ([facility]) gabapentin 600 MG Oral Tablet Gabapentin 600 MG Gabapentin 6 00 MG 02/28/2020 12:00:00 AM EDT 1.0 {tablet} active Ga bapentin 600 MG eCW1 ([facility]) Amoxicillin 500 MG Oral Capsule Amoxicillin 500 MG 02/28/2020 12:00 :00 AM EDT active Amoxicillin 500 MG eCW1 ([facility]) 24 HR Bupropion Hydrochloride 150 MG Ext ended Release Oral Tablet [Wellbutrin] Wellbutrin XL 150 MG Wellbutrin XL 150 MG 02/28/2020 12:00:00 AM EDT 1.0 {tablet_in_the_morning} active Wellbutr in XL 150 MG eCW1 ([facility]) Amoxicillin 500 MG Oral Capsule Amoxicillin 500 MG 02/28/2020 12:00 :00 AM EDT suspended Amoxicillin 500 MG eCW 1 ([facility]) Amoxicillin 500 MG Oral Capsule Amoxicillin 500 MG 02/28/2020 12:00 :00 AM EDT suspended Amoxicillin 500 MG eCW 1 ([facility]) 24 HR Bupropion Hydrochloride 150 MG Ext ended Release Oral Tablet [Wellbutrin] Wellbutrin XL 150 MG Wellbutrin XL 150 MG 02/28/2020 12:00:00 AM EDT 1.0 {tablet_in_the_morning} active Wellbutr in XL 150 MG eCW1 ([facility]) gabapentin 600 MG Oral Tablet Gabapentin 600 MG Gabapentin 6 00 MG 02/28/2020 12:00:00 AM EDT 1.0 {tablet} active Ga bapentin 600 MG eCW1 ([facility]) gabapentin 600 MG Oral Tablet Gabapentin 600 MG Gabapentin 6 00 MG 02/28/2020 12:00:00 AM EDT 1.0 {tablet} active Ga bapentin 600 MG eCW1 ([facility]) gabapentin 600 MG Oral Tablet Gabapentin 600 MG Gabapentin 6 00 MG 02/28/2020 12:00:00 AM EDT 1.0 {tablet} active Ga bapentin 600 MG eCW1 ([facility]) Amoxicillin 500 MG Oral Capsule Amoxicillin 500 MG 02/28/2020 12:00 :00 AM EDT suspended Amoxicillin 500 MG eCW 1 ([facility]) gabapentin 600 MG Oral Tablet Gabapentin 600 MG Gabapentin 6 00 MG 02/28/2020 12:00:00 AM EDT 1.0 {tablet} active Ga bapentin 600 MG eCW1 ([facility]) 24 HR Bupropion Hydrochloride 150 MG Ext ended Release Oral Tablet [Wellbutrin] Wellbutrin XL 150 MG Wellbutrin XL 150 MG 02/28/2020 12:00:00 AM EDT 1.0 {tablet_in_the_morning} active Wellbutr in XL 150 MG eCW1 ([facility]) gabapentin 600 MG Oral Tablet Gabapentin 600 MG Gabapentin 6 00 MG 02/28/2020 12:00:00 AM EDT 1.0 {tablet} active Ga bapentin 600 MG eCW1 ([facility]) gabapentin 600 MG Oral Tablet Gabapentin 600 MG Gabapentin 6 00 MG 02/28/2020 12:00:00 AM EDT 1.0 {tablet} active Ga bapentin 600 MG eCW1 ([facility]) Amoxicillin 500 MG Oral Capsule Amoxicillin 500 MG 02/28/2020 12:00 :00 AM EDT active Amoxicillin 500 MG eCW1 ([facility]) gabapentin 600 MG Oral Tablet Gabapentin 600 MG Oral T ablet (NEURONTIN) Gabapentin 600 MG Oral Tablet (NEURONTIN) 02/28/2020 12:00:00 AM EDT 600 mg Oral active Take 600 mg by mouth Three times daily [facility] 24 HR Bupropion Hydrochloride 150 MG Ext ended Release Oral Tablet [Wellbutrin] Wellbutrin XL 150 MG Wellbutrin XL 150 MG 02/28/2020 12:00:00 AM EDT 1.0 {tablet_in_the_morning} active Wellbutr in XL 150 MG eCW1 ([facility]) gabapentin 600 MG Oral Tablet Gabapentin 600 MG Gabapentin 6 00 MG 02/28/2020 12:00:00 AM EDT 1.0 {tablet} active Ga bapentin 600 MG eCW1 ([facility]) Amoxicillin 500 MG Oral Capsule Amoxicillin 500 MG 02/28/2020 12:00 :00 AM EDT suspended Amoxicillin 500 MG eCW 1 ([facility]) Amoxicillin 500 MG Oral Capsule Amoxicillin 500 MG 02/28/2020 12:00 :00 AM EDT suspended Amoxicillin 500 MG eCW 1 ([facility]) gabapentin 600 MG Oral Tablet Gabapentin 600 MG Gabapentin 6 00 MG 02/28/2020 12:00:00 AM EDT 1.0 {tablet} active Ga bapentin 600 MG eCW1 ([facility]) Amoxicillin 500 MG Oral Capsule Amoxicillin 500 MG 02/28/2020 12:00 :00 AM EDT suspended Amoxicillin 500 MG eCW 1 ([facility]) gabapentin 600 MG Oral Tablet Gabapentin 600 MG Gabapentin 6 00 MG 02/28/2020 12:00:00 AM EDT 1.0 {tablet} active Ga bapentin 600 MG eCW1 ([facility]) 24 HR Bupropion Hydrochloride 150 MG Ext ended Release Oral Tablet [Wellbutrin] Wellbutrin XL 150 MG Wellbutrin XL 150 MG 02/28/2020 12:00:00 AM EDT 1.0 {tablet_in_the_morning} active Wellbutr in XL 150 MG eCW1 ([facility]) Amoxicillin 500 MG Oral Capsule Amoxicillin 500 MG 02/28/2020 12:00 :00 AM EDT suspended Amoxicillin 500 MG eCW 1 ([facility]) Amoxicillin 500 MG Oral Capsule Amoxicillin 500 MG 02/28/2020 12:00 :00 AM EDT suspended Amoxicillin 500 MG eCW 1 ([facility]) gabapentin 600 MG Oral Tablet Gabapentin 600 MG Gabapentin 6 00 MG 02/28/2020 12:00:00 AM EDT 1.0 {tablet} active Ga bapentin 600 MG eCW1 ([facility]) Amoxicillin 500 MG Oral Capsule Amoxicillin 500 MG 02/28/2020 12:00 :00 AM EDT suspended Amoxicillin 500 MG eCW 1 ([facility]) 24 HR Bupropion Hydrochloride 150 MG Ext ended Release Oral Tablet [Wellbutrin] Wellbutrin XL 150 MG Wellbutrin XL 150 MG 02/28/2020 12:00:00 AM EDT 1.0 {tablet_in_the_morning} active Wellbutr in XL 150 MG eCW1 ([facility]) gabapentin 600 MG Oral Tablet Gabapentin 600 MG Gabapentin 6 00 MG 02/28/2020 12:00:00 AM EDT 1.0 {tablet} active Ga bapentin 600 MG eCW1 ([facility]) 24 HR Bupropion Hydrochloride 150 MG Ext ended Release Oral Tablet [Wellbutrin] Wellbutrin XL 150 MG Wellbutrin XL 150 MG 02/28/2020 12:00:00 AM EDT 1.0 {tablet_in_the_morning} active Wellbutr in XL 150 MG eCW1 ([facility]) gabapentin 600 MG Oral Tablet Gabapentin 600 MG Gabapentin 6 00 MG 02/28/2020 12:00:00 AM EDT 1.0 {tablet} active Ga bapentin 600 MG eCW1 ([facility]) Amoxicillin 500 MG Oral Capsule Amoxicillin 500 MG 02/28/2020 12:00 :00 AM EDT suspended Amoxicillin 500 MG eCW 1 ([facility]) gabapentin 600 MG Oral Tablet Gabapentin 600 MG Gabapentin 6 00 MG 02/28/2020 12:00:00 AM EDT 1.0 {tablet} active Ga bapentin 600 MG eCW1 ([facility]) Amoxicillin 500 MG Oral Capsule Amoxicillin 500 MG 02/28/2020 12:00 :00 AM EDT suspended Amoxicillin 500 MG eCW 1 ([facility]) 24 HR Bupropion Hydrochloride 150 MG Ext ended Release Oral Tablet [Wellbutrin] Wellbutrin XL 150 MG Wellbutrin XL 150 MG 02/28/2020 12:00:00 AM EDT 1.0 {tablet_in_the_morning} active Wellbutr in XL 150 MG eCW1 ([facility]) Amoxicillin 500 MG Oral Capsule Amoxicillin 500 MG 02/28/2020 12:00 :00 AM EDT active Amoxicillin 500 MG eCW1 ([facility]) Amoxicillin 500 MG Oral Capsule Amoxicillin 500 MG 02/28/2020 12:00 :00 AM EDT suspended Amoxicillin 500 MG eCW 1 ([facility]) Amoxicillin 500 MG Oral Capsule Amoxicillin 500 MG 02/28/2020 12:00 :00 AM EDT suspended Amoxicillin 500 MG eCW 1 ([facility]) Amoxicillin 500 MG Oral Capsule Amoxicillin 500 MG 02/28/2020 12:00 :00 AM EDT active Amoxicillin 500 MG eCW1 ([facility]) gabapentin 600 MG Oral Tablet Gabapentin 600 MG Gabapentin 6 00 MG 02/28/2020 12:00:00 AM EDT 1.0 {tablet} active Ga bapentin 600 MG eCW1 ([facility]) Amoxicillin 500 MG Oral Capsule Amoxicillin 500 MG 02/28/2020 12:00 :00 AM EDT suspended Amoxicillin 500 MG eCW 1 ([facility]) gabapentin 600 MG Oral Tablet Gabapentin 600 MG Gabapentin 6 00 MG 02/28/2020 12:00:00 AM EDT 1.0 {tablet} active Ga bapentin 600 MG eCW1 ([facility]) gabapentin 600 MG Oral Tablet Gabapentin 600 MG Gabapentin 6 00 MG 02/28/2020 12:00:00 AM EDT 1.0 {tablet} active Ga bapentin 600 MG eCW1 ([facility]) gabapentin 600 MG Oral Tablet Gabapentin 600 MG Gabapentin 6 00 MG 02/28/2020 12:00:00 AM EDT 1.0 {tablet} active Ga bapentin 600 MG eCW1 ([facility]) Amoxicillin 500 MG Oral Capsule Amoxicillin 500 MG 02/28/2020 12:00 :00 AM EDT suspended Amoxicillin 500 MG eCW 1 ([facility]) Amoxicillin 500 MG Oral Capsule Amoxicillin 500 MG 02/28/2020 12:00 :00 AM EDT suspended Amoxicillin 500 MG eCW 1 ([facility]) Amoxicillin 500 MG Oral Capsule Amoxicillin 500 MG 02/28/2020 12:00 :00 AM EDT suspended Amoxicillin 500 MG eCW 1 ([facility]) gabapentin 600 MG Oral Tablet Gabapentin 600 MG Gabapentin 6 00 MG 02/28/2020 12:00:00 AM EDT 1.0 {tablet} active Ga bapentin 600 MG eCW1 ([facility]) 24 HR Bupropion Hydrochloride 150 MG Ext ended Release Oral Tablet [Wellbutrin] Wellbutrin XL 150 MG Wellbutrin XL 150 MG 02/28/2020 12:00:00 AM EDT 1.0 {tablet_in_the_morning} active Wellbutr in XL 150 MG eCW1 ([facility]) Amoxicillin 500 MG Oral Capsule Amoxicillin 500 MG 02/28/2020 12:00 :00 AM EDT active Amoxicillin 500 MG eCW1 ([facility]) Methylprednisolone 4 MG Oral Tablet [Medrol] Medrol 12:00:00 AM EDT active MEDENT ( [facility]) Aimovig Aimovig 11/19/2019 12:00:00 AM EDT active MEDENT ([facility]) pregabalin 150 MG Oral Capsule [Lyrica] Lyrica 150 MG Lyrica 150 MG 11/08/2019 12:00:00 AM EDT 1.0 {capsule} active L yrica 150 MG eCW1 ([facility]) pregabalin 150 MG Oral Capsule [Lyrica] Lyrica 150 MG Lyrica 150 MG 11/08/2019 12:00:00 AM EDT 1.0 {capsule} suspended Lyrica 150 MG eCW1 ([facility]) pregabalin 150 MG Oral Capsule [Lyrica] Lyrica 150 MG Lyrica 150 MG 11/08/2019 12:00:00 AM EDT 1.0 {capsule} active L yrica 150 MG eCW1 ([facility]) pregabalin 150 MG Oral Capsule [Lyrica] Lyrica 150 MG Lyrica 150 MG 11/08/2019 12:00:00 AM EDT 1.0 {capsule} active L yrica 150 MG eCW1 ([facility]) pregabalin 150 MG Oral Capsule [Lyrica] Lyrica 150 MG Lyrica 150 MG 11/08/2019 12:00:00 AM EDT 1.0 {capsule} active L yrica 150 MG eCW1 ([facility]) pregabalin 150 MG Oral Capsule [Lyrica] Lyrica 150 MG Lyrica 150 MG 11/08/2019 12:00:00 AM EDT 1.0 {capsule} active L yrica 150 MG eCW1 ([facility]) Prednisone 20 MG Oral Tablet predniSONE 20 MG Oral Tab let (DELTASONE) predniSONE 20 MG Oral Tablet (DELTASONE) 10/31/2019 12:00:00 AM EDT [facility] Prednisone 20 MG Oral Tablet Prednisone 10/30/2019 12:00:00 AM EDT completed MEDENT ([facility]) pregabalin 100 MG Oral Capsule Pregabalin 100 MG Oral Capsule (LYRICA) Pregabalin 100 MG Oral Capsule (LYRICA) 10/08/2019 12:00:00 AM EDT 15 0 mg aborted 150 mg [facility] pregabalin 100 MG Oral Capsule [Lyrica] Lyrica 100 MG Lyrica 100 MG 10/08/2019 12:00:00 AM EDT active 1 capsul e eCW1 ([facility]) pregabalin 100 MG Oral Capsule [Lyrica] Lyrica 100 MG Lyrica 100 MG 10/08/2019 12:00:00 AM EDT 1.0 {capsule} active L yrica 100 MG eCW1 ([facility]) pregabalin 100 MG Oral Capsule [Lyrica] Lyrica 100 MG Lyrica 100 MG 10/08/2019 12:00:00 AM EDT 1.0 {capsule} active L yrica 100 MG eCW1 ([facility]) Triamcinolone Acetonide 1 MG/ML Topical Cream Triamcin olone Acetonide 0.1 % Triamcinolone Acetonide 0.1 % 09/09/2019 12:00:00 AM EDT 1.0 {appli cation} active Triamcinolone Acetonide 0 .1 % eCW1 ([facility]) Triamcinolone Acetonide 1 MG/ML Topical Cream Triamcin olone Acetonide 0.1 % Triamcinolone Acetonide 0.1 % 09/09/2019 12:00:00 AM EDT active 1 application eCW1 ([facility]) Triamcinolone Acetonide 1 MG/ML Topical Cream Triamcin olone Acetonide 0.1 % Triamcinolone Acetonide 0.1 % 09/09/2019 12:00:00 AM EDT 1.0 {appli cation} active Triamcinolone Acetonide 0 .1 % eCW1 ([facility]) Triamcinolone Acetonide 1 MG/ML Topical Cream Triamcin olone Acetonide 0.1 % Triamcinolone Acetonide 0.1 % 09/09/2019 12:00:00 AM EDT 1.0 {appli cation} active Triamcinolone Acetonide 0 .1 % eCW1 ([facility]) Triamcinolone Acetonide 1 MG/ML Topical Cream Triamcin olone Acetonide 0.1 % Triamcinolone Acetonide 0.1 % 09/09/2019 12:00:00 AM EDT 1.0 {appli cation} active Triamcinolone Acetonide 0 .1 % eCW1 ([facility]) Triamcinolone Acetonide 1 MG/ML Topical Cream Triamcin olone Acetonide 0.1 % Triamcinolone Acetonide 0.1 % 09/09/2019 12:00:00 AM EDT 1.0 {appli cation} active Triamcinolone Acetonide 0 .1 % eCW1 ([facility]) Triamcinolone Acetonide 1 MG/ML Topical Cream Triamcin olone Acetonide 0.1 % Triamcinolone Acetonide 0.1 % 09/09/2019 12:00:00 AM EDT 1.0 {appli cation} active Triamcinolone Acetonide 0 .1 % eCW1 ([facility]) Triamcinolone Acetonide 1 MG/ML Topical Cream Triamcin olone Acetonide 0.1 % Triamcinolone Acetonide 0.1 % 09/09/2019 12:00:00 AM EDT 1.0 {appli cation} active Triamcinolone Acetonide 0 .1 % eCW1 ([facility]) Triamcinolone Acetonide 1 MG/ML Topical Cream Triamcin olone Acetonide 0.1 % Triamcinolone Acetonide 0.1 % 09/09/2019 12:00:00 AM EDT 1.0 {appli cation} active Triamcinolone Acetonide 0 .1 % eCW1 ([facility]) Triamcinolone Acetonide 1 MG/ML Topical Cream Triamcin olone Acetonide 0.1 % Triamcinolone Acetonide 0.1 % 09/09/2019 12:00:00 AM EDT 1.0 {appli cation} active Triamcinolone Acetonide 0 .1 % eCW1 ([facility]) Triamcinolone Acetonide 1 MG/ML Topical Cream Triamcin olone Acetonide 0.1 % Triamcinolone Acetonide 0.1 % 09/09/2019 12:00:00 AM EDT 1.0 {appli cation} active Triamcinolone Acetonide 0 .1 % eCW1 ([facility]) Triamcinolone Acetonide 1 MG/ML Topical Cream Triamcin olone Acetonide 0.1 % Triamcinolone Acetonide 0.1 % 09/09/2019 12:00:00 AM EDT 1.0 {appli cation} active Triamcinolone Acetonide 0 .1 % eCW1 ([facility]) Triamcinolone Acetonide 1 MG/ML Topical Cream Triamcin olone Acetonide 0.1 % Triamcinolone Acetonide 0.1 % 09/09/2019 12:00:00 AM EDT 1.0 {appli cation} active Triamcinolone Acetonide 0 .1 % eCW1 ([facility]) Triamcinolone Acetonide 1 MG/ML Topical Cream Triamcin olone Acetonide 0.1 % Triamcinolone Acetonide 0.1 % 09/09/2019 12:00:00 AM EDT 1.0 {appli cation} active Triamcinolone Acetonide 0 .1 % eCW1 ([facility]) Triamcinolone Acetonide 1 MG/ML Topical Cream Triamcin olone Acetonide 0.1 % Triamcinolone Acetonide 0.1 % 09/09/2019 12:00:00 AM EDT 1.0 {appli cation} active Triamcinolone Acetonide 0 .1 % eCW1 ([facility]) Triamcinolone Acetonide 1 MG/ML Topical Cream Triamcin olone Acetonide 0.1 % Triamcinolone Acetonide 0.1 % 09/09/2019 12:00:00 AM EDT 1.0 {appli cation} active Triamcinolone Acetonide 0 .1 % eCW1 ([facility]) pregabalin 75 MG Oral Capsule [Lyrica] Lyrica 75 MG Lyrica 7 5 MG 09/09/2019 12:00:00 AM EDT active 1 capsul e eCW1 ([facility]) Triamcinolone Acetonide 1 MG/ML Topical Cream Triamcin olone Acetonide 0.1 % Triamcinolone Acetonide 0.1 % 09/09/2019 12:00:00 AM EDT 1.0 {appli cation} active Triamcinolone Acetonide 0 .1 % eCW1 ([facility]) Triamcinolone Acetonide 1 MG/ML Topical Cream Triamcin olone Acetonide 0.1 % Triamcinolone Acetonide 0.1 % 09/09/2019 12:00:00 AM EDT active 1 application eCW1 ([facility]) Triamcinolone Acetonide 1 MG/ML Topical Cream Triamcin olone Acetonide 0.1 % Triamcinolone Acetonide 0.1 % 09/09/2019 12:00:00 AM EDT 1.0 {appli cation} active Triamcinolone Acetonide 0 .1 % eCW1 ([facility]) Triamcinolone Acetonide 1 MG/ML Topical Cream Triamcin olone Acetonide 0.1 % Triamcinolone Acetonide 0.1 % 09/09/2019 12:00:00 AM EDT 1.0 {appli cation} active Triamcinolone Acetonide 0 .1 % eCW1 ([facility]) Triamcinolone Acetonide 1 MG/ML Topical Cream Triamcin olone Acetonide 0.1 % Triamcinolone Acetonide 0.1 % 09/09/2019 12:00:00 AM EDT 1.0 {appli cation} active Triamcinolone Acetonide 0 .1 % eCW1 ([facility]) Triamcinolone Acetonide 1 MG/ML Topical Cream Triamcin olone Acetonide 0.1 % Triamcinolone Acetonide 0.1 % 09/09/2019 12:00:00 AM EDT 1.0 {appli cation} active Triamcinolone Acetonide 0 .1 % eCW1 ([facility]) Triamcinolone Acetonide 1 MG/ML Topical Cream Triamcin olone Acetonide 0.1 % Triamcinolone Acetonide 0.1 % 09/09/2019 12:00:00 AM EDT 1.0 {appli cation} active Triamcinolone Acetonide 0 .1 % eCW1 ([facility]) Triamcinolone Acetonide 1 MG/ML Topical Cream Triamcin olone Acetonide 0.1 % Triamcinolone Acetonide 0.1 % 09/09/2019 12:00:00 AM EDT 1.0 {appli cation} active Triamcinolone Acetonide 0 .1 % eCW1 ([facility]) Triamcinolone Acetonide 1 MG/ML Topical Cream Triamcin olone Acetonide 0.1 % Triamcinolone Acetonide 0.1 % 09/09/2019 12:00:00 AM EDT 1.0 {appli cation} active Triamcinolone Acetonide 0 .1 % eCW1 ([facility]) Triamcinolone Acetonide 1 MG/ML Topical Cream Triamcin olone Acetonide 0.1 % Triamcinolone Acetonide 0.1 % 09/09/2019 12:00:00 AM EDT 1.0 {appli cation} active Triamcinolone Acetonide 0 .1 % eCW1 ([facility]) Triamcinolone Acetonide 1 MG/ML Topical Cream Triamcin olone Acetonide 0.1 % Triamcinolone Acetonide 0.1 % 09/09/2019 12:00:00 AM EDT 1.0 {appli cation} active Triamcinolone Acetonide 0 .1 % eCW1 ([facility]) Triamcinolone Acetonide 1 MG/ML Topical Cream Triamcin olone Acetonide 0.1 % Triamcinolone Acetonide 0.1 % 09/09/2019 12:00:00 AM EDT 1.0 {appli cation} active Triamcinolone Acetonide 0 .1 % eCW1 ([facility]) Triamcinolone Acetonide 1 MG/ML Topical Cream Triamcin olone Acetonide 0.1 % Triamcinolone Acetonide 0.1 % 09/09/2019 12:00:00 AM EDT 1.0 {appli cation} active Triamcinolone Acetonide 0 .1 % eCW1 ([facility]) Triamcinolone Acetonide 1 MG/ML Topical Cream Triamcin olone Acetonide 0.1 % Triamcinolone Acetonide 0.1 % 09/09/2019 12:00:00 AM EDT 1.0 {appli cation} active Triamcinolone Acetonide 0 .1 % eCW1 ([facility]) Triamcinolone Acetonide 1 MG/ML Topical Cream Triamcin olone Acetonide 0.1 % Triamcinolone Acetonide 0.1 % 09/09/2019 12:00:00 AM EDT 1.0 {appli cation} active Triamcinolone Acetonide 0 .1 % eCW1 ([facility]) Triamcinolone Acetonide 1 MG/ML Topical Cream Triamcin olone Acetonide 0.1 % Triamcinolone Acetonide 0.1 % 09/09/2019 12:00:00 AM EDT 1.0 {appli cation} active Triamcinolone Acetonide 0 .1 % eCW1 ([facility]) Triamcinolone Acetonide 1 MG/ML Topical Cream Triamcin olone Acetonide 0.1 % Triamcinolone Acetonide 0.1 % 09/09/2019 12:00:00 AM EDT 1.0 {appli cation} active Triamcinolone Acetonide 0 .1 % eCW1 ([facility]) Triamcinolone Acetonide 1 MG/ML Topical Cream Triamcin olone Acetonide 0.1 % Triamcinolone Acetonide 0.1 % 09/09/2019 12:00:00 AM EDT 1.0 {appli cation} active Triamcinolone Acetonide 0 .1 % eCW1 ([facility]) Triamcinolone Acetonide 1 MG/ML Topical Cream Triamcin olone Acetonide 0.1 % Triamcinolone Acetonide 0.1 % 09/09/2019 12:00:00 AM EDT 1.0 {appli cation} active Triamcinolone Acetonide 0 .1 % eCW1 ([facility]) Triamcinolone Acetonide 1 MG/ML Topical Cream Triamcin olone Acetonide 0.1 % Triamcinolone Acetonide 0.1 % 09/09/2019 12:00:00 AM EDT 1.0 {appli cation} active Triamcinolone Acetonide 0 .1 % eCW1 ([facility]) gabapentin 300 MG Oral Capsule Gabapentin 300 MG Oral Capsule (NEURONTIN) Gabapentin 300 MG Oral Capsule (NEURONTIN) 08/30/2019 12:00:00 AM EDT [facility] methylPREDNISolone 4 MG Oral Tablet Therapy Pack (MEDROL DOS EPACK) 1341-7398-27 07/18/2019 12:00:00 AM EST [facility] Acetaminophen 325 MG / Oxycodone Hydrochloride 5 MG Or al Tablet Oxycodone-Acetaminophen 07/17/2019 12:00:00 AM EST completed MEDENT ([facility] ) duloxetine 60 MG Delayed Release Oral Capsule [Cymbalt a] Cymbalta 60 MG Cymbalta 60 MG 07/16/2019 12:00:00 AM EST 1.0 {capsule} acti ve Cymbalta 60 MG eCW1 ([facility]) duloxetine 60 MG Delayed Release Oral Capsule [Cymbalt a] Cymbalta 60 MG Cymbalta 60 MG 07/16/2019 12:00:00 AM EST 1.0 {capsule} acti ve Cymbalta 60 MG eCW1 ([facility]) duloxetine 60 MG Delayed Release Oral Capsule [Cymbalt a] Cymbalta 60 MG Cymbalta 60 MG 07/16/2019 12:00:00 AM EST 1.0 {capsule} acti ve Cymbalta 60 MG eCW1 ([facility]) duloxetine 60 MG Delayed Release Oral Capsule [Cymbalt a] Cymbalta 60 MG Cymbalta 60 MG 07/16/2019 12:00:00 AM EST 1.0 {capsule} acti ve Cymbalta 60 MG eCW1 ([facility]) duloxetine 60 MG Delayed Release Oral Capsule [Cymbalt a] Cymbalta 60 MG Cymbalta 60 MG 07/16/2019 12:00:00 AM EST 1.0 {capsule} acti ve Cymbalta 60 MG eCW1 ([facility]) duloxetine 60 MG Delayed Release Oral Capsule [Cymbalt a] Cymbalta 60 MG Cymbalta 60 MG 07/16/2019 12:00:00 AM EST 1.0 {capsule} acti ve Cymbalta 60 MG eCW1 ([facility]) duloxetine 60 MG Delayed Release Oral Capsule [Cymbalt a] Cymbalta 60 MG Cymbalta 60 MG 07/16/2019 12:00:00 AM EST 1.0 {capsule} acti ve Cymbalta 60 MG eCW1 ([facility]) duloxetine 60 MG Delayed Release Oral Capsule [Cymbalt a] Cymbalta 60 MG Cymbalta 60 MG 07/16/2019 12:00:00 AM EST active Cymbalta 60 MG eCW1 ([facility]) duloxetine 60 MG Delayed Release Oral Capsule [Cymbalt a] Cymbalta 60 MG Cymbalta 60 MG 07/16/2019 12:00:00 AM EST 1.0 {capsule} acti ve Cymbalta 60 MG eCW1 ([facility]) duloxetine 60 MG Delayed Release Oral Capsule [Cymbalt a] Cymbalta 60 MG Cymbalta 60 MG 07/16/2019 12:00:00 AM EST 1.0 {capsule} acti ve Cymbalta 60 MG eCW1 ([facility]) duloxetine 60 MG Delayed Release Oral Capsule [Cymbalt a] Cymbalta 60 MG Cymbalta 60 MG 07/16/2019 12:00:00 AM EST 1.0 {capsule} acti ve Cymbalta 60 MG eCW1 ([facility]) duloxetine 60 MG Delayed Release Oral Capsule [Cymbalt a] Cymbalta 60 MG Cymbalta 60 MG 07/16/2019 12:00:00 AM EST 1.0 {capsule} acti ve Cymbalta 60 MG eCW1 ([facility]) duloxetine 60 MG Delayed Release Oral Capsule [Cymbalt a] Cymbalta 60 MG Cymbalta 60 MG 07/16/2019 12:00:00 AM EST 1.0 {capsule} acti ve Cymbalta 60 MG eCW1 ([facility]) duloxetine 60 MG Delayed Release Oral Capsule [Cymbalt a] Cymbalta 60 MG Cymbalta 60 MG 07/16/2019 12:00:00 AM EST 1.0 {capsule} acti ve Cymbalta 60 MG eCW1 ([facility]) duloxetine 60 MG Delayed Release Oral Capsule [Cymbalt a] Cymbalta 60 MG Cymbalta 60 MG 07/16/2019 12:00:00 AM EST 1.0 {capsule} acti ve Cymbalta 60 MG eCW1 ([facility]) duloxetine 60 MG Delayed Release Oral Capsule [Cymbalt a] Cymbalta 60 MG Cymbalta 60 MG 07/16/2019 12:00:00 AM EST 1.0 {capsule} acti ve Cymbalta 60 MG eCW1 ([facility]) duloxetine 60 MG Delayed Release Oral Capsule [Cymbalt a] Cymbalta 60 MG Cymbalta 60 MG 07/16/2019 12:00:00 AM EST 1.0 {capsule} acti ve Cymbalta 60 MG eCW1 ([facility]) duloxetine 60 MG Delayed Release Oral Capsule [Cymbalt a] Cymbalta 60 MG Cymbalta 60 MG 07/16/2019 12:00:00 AM EST active TAKE ONE CAPSULE BY MOUTH AT BEDTIME eCW1 ([facility]) duloxetine 60 MG Delayed Release Oral Capsule [Cymbalt a] Cymbalta 60 MG Cymbalta 60 MG 07/16/2019 12:00:00 AM EST 1.0 {capsule} acti ve Cymbalta 60 MG eCW1 ([facility]) duloxetine 60 MG Delayed Release Oral Capsule [Cymbalt a] Cymbalta 60 MG Cymbalta 60 MG 07/16/2019 12:00:00 AM EST 1.0 {capsule} acti ve Cymbalta 60 MG eCW1 ([facility]) duloxetine 60 MG Delayed Release Oral Capsule [Cymbalt a] Cymbalta 60 MG Cymbalta 60 MG 07/16/2019 12:00:00 AM EST 1.0 {capsule} acti ve Cymbalta 60 MG eCW1 ([facility]) duloxetine 60 MG Delayed Release Oral Capsule [Cymbalt a] Cymbalta 60 MG Cymbalta 60 MG 07/16/2019 12:00:00 AM EST 1.0 {capsule} acti ve Cymbalta 60 MG eCW1 ([facility]) duloxetine 60 MG Delayed Release Oral Capsule [Cymbalt a] Cymbalta 60 MG Cymbalta 60 MG 07/16/2019 12:00:00 AM EST active TAKE ONE CAPSULE BY MOUTH AT BEDTIME eCW1 ([facility]) duloxetine 60 MG Delayed Release Oral Capsule [Cymbalt a] Cymbalta 60 MG Cymbalta 60 MG 07/16/2019 12:00:00 AM EST 1.0 {capsule} acti ve Cymbalta 60 MG eCW1 ([facility]) duloxetine 60 MG Delayed Release Oral Capsule [Cymbalt a] Cymbalta 60 MG Cymbalta 60 MG 07/16/2019 12:00:00 AM EST 1.0 {capsule} acti ve Cymbalta 60 MG eCW1 ([facility]) duloxetine 60 MG Delayed Release Oral Capsule [Cymbalt a] Cymbalta 60 MG Cymbalta 60 MG 07/16/2019 12:00:00 AM EST 1.0 {capsule} acti ve Cymbalta 60 MG eCW1 ([facility]) duloxetine 60 MG Delayed Release Oral Capsule [Cymbalt a] Cymbalta 60 MG Cymbalta 60 MG 07/16/2019 12:00:00 AM EST 1.0 {capsule} acti ve Cymbalta 60 MG eCW1 ([facility]) duloxetine 60 MG Delayed Release Oral Capsule [Cymbalt a] Cymbalta 60 MG Cymbalta 60 MG 07/16/2019 12:00:00 AM EST active Cymbalta 60 MG eCW1 ([facility]) duloxetine 60 MG Delayed Release Oral Capsule [Cymbalt a] Cymbalta 60 MG Cymbalta 60 MG 07/16/2019 12:00:00 AM EST 1.0 {capsule} acti ve Cymbalta 60 MG eCW1 ([facility]) duloxetine 60 MG Delayed Release Oral Capsule [Cymbalt a] Cymbalta 60 MG Cymbalta 60 MG 07/16/2019 12:00:00 AM EST 1.0 {capsule} acti ve Cymbalta 60 MG eCW1 ([facility]) duloxetine 60 MG Delayed Release Oral Capsule [Cymbalt a] Cymbalta 60 MG Cymbalta 60 MG 07/16/2019 12:00:00 AM EST 1.0 {capsule} acti ve Cymbalta 60 MG eCW1 ([facility]) duloxetine 60 MG Delayed Release Oral Capsule [Cymbalt a] Cymbalta 60 MG Cymbalta 60 MG 07/16/2019 12:00:00 AM EST active TAKE ONE CAPSULE BY MOUTH AT BEDTIME eCW1 ([facility]) duloxetine 60 MG Delayed Release Oral Capsule [Cymbalt a] Cymbalta 60 MG Cymbalta 60 MG 07/16/2019 12:00:00 AM EST 1.0 {capsule} acti ve Cymbalta 60 MG eCW1 ([facility]) duloxetine 60 MG Delayed Release Oral Capsule [Cymbalt a] Cymbalta 60 MG Cymbalta 60 MG 07/16/2019 12:00:00 AM EST 1.0 {capsule} acti ve Cymbalta 60 MG eCW1 ([facility]) duloxetine 60 MG Delayed Release Oral Capsule [Cymbalt a] Cymbalta 60 MG Cymbalta 60 MG 07/16/2019 12:00:00 AM EST 1.0 {capsule} acti ve Cymbalta 60 MG eCW1 ([facility]) duloxetine 60 MG Delayed Release Oral Capsule [Cymbalt a] Cymbalta 60 MG Cymbalta 60 MG 07/16/2019 12:00:00 AM EST 1.0 {capsule} acti ve Cymbalta 60 MG eCW1 ([facility]) duloxetine 60 MG Delayed Release Oral Capsule [Cymbalt a] Cymbalta 60 MG Cymbalta 60 MG 07/16/2019 12:00:00 AM EST 1.0 {capsule} acti ve Cymbalta 60 MG eCW1 ([facility]) Phenazopyridine hydrochloride 200 MG Del ayed Release Oral Tablet Phenazopyridine HCl 200 MG Oral Tablet (PYRIDIUM) Phenazopyridine HCl 200 MG Oral Tablet (PYRIDIUM) 07/09/2019 12:00:00 AM EST aborted TAKE 1 TABLET BY MOUTH EVERY 8 HOURS [facility] Hydrochlorothiazide 12.5 MG / Lisinopril 10 MG Oral Tablet Lisinopril- hydroCHLOROthiazide 10-12.5 MG Oral Tablet (ZESTORETIC) Lisinopril- hydroCHLOROthiazide 10-12.5 MG Oral Tablet (ZESTORETIC) 06/20/2019 12:00:00 AM EST 1 {tbl} Oral active Take 1 tablet by mouth daily [facility] benzonatate 100 MG Oral Capsule [Tessalon Perles] Ayanna travis Perles 100 MG Tessalon Perles 100 MG 05/17/2019 12:00:00 AM EST active 1 capsule as needed eCW1 ([facility]) benzonatate 100 MG Oral Capsule [Tessalon Perles] Ayanna travis Perles 100 MG Tessalon Perles 100 MG 05/17/2019 12:00:00 AM EST active 1 capsule as needed eCW1 ([facility]) Amoxicillin 500 MG Oral Capsule Amoxicillin 500 MG Ora l Capsule (AMOXIL) Amoxicillin 500 MG Oral Capsule (AMOXIL) 03/22/2019 12:00:00 AM EST aborted as needed [facility] Cholecalciferol 1999 UNT Oral Capsule Vitamin D3 50 MC G (1999) Oral Capsule Vitamin D3 50 MCG (1999) Oral Capsule 01/31/2019 12:00:00 AM EDT Oral aborted Take by mouth daily [facility] tizanidine 4 MG Oral Tablet tiZANidine HCl 4 MG Oral T ablet (ZANAFLEX) tiZANidine HCl 4 MG Oral Tablet (ZANAFLEX) 12/14/2018 12:00:00 AM EDT aborted [facility] Naproxen 500 MG Oral Tablet Naproxen 500 MG Oral Table t (NAPROSYN) Naproxen 500 MG Oral Tablet (NAPROSYN) 12/12/2018 12:00:00 AM EDT aborted [facility] 24 HR Bupropion Hydrochloride 300 MG Ext ended Release Oral Tablet buPROPion (WELLBUTRIN XL) 300 MG 24 hr tablet buPROPion (WELLBUTRIN XL) 300 MG 24 hr tablet 05/03/2018 12:00:00 AM EST 300 mg Oral aborted Take 300 mg by mouth every morning With 150 mg tablet. DKM=021 mg [facility] potassium citrate 5 MEQ Extended Release Oral Tablet Potassium Citrate ER 5 MEQ (540 MG) Oral Tablet Extended Release (UROCIT-K) Potassium Citrate ER 5 MEQ (540 MG) Oral Tablet Extended Release (UROCIT-K) 11/08/2010 12:00:00 AM EDT Oral aborted Take by mouth [facility] Hydrochlorothiazide 12.5 MG Oral Tablet hydroCHLOROthiazide 12.5 MG Oral Tablet (HYDRODIURIL) hydroCHLOROthiazide 12.5 MG Oral Tablet (HYDRODIURIL) 11/08/2010 12:00:00 AM EDT Oral aborted Take by mouth [facility] Acetaminophen 325 MG / Oxycodone Hydroch loride 5 MG Oral Tablet oxycodone- acetaminophen (PERCOCET) 5-325 MG per tablet oxycodone-acetaminophen (PERCOCET) 5-325 MG per tablet 1 {tbl} Oral aborted Take 1 tablet by mouth every 4 (four) hours as needed for Pain [facility] clopidogrel 75 MG Oral Tablet clopidogrel (PLAVIX) 75 MG tablet clopidogrel (PLAVIX) 75 MG tablet 75 mg Oral aborted Take 75 mg by mouth every evening [facility] Mupirocin 0.02 MG/MG Topical Ointment mupirocin (BACTR OBAN) 2 % ointment mupirocin (BACTROBAN) 2 % ointment Topical ab orted Apply topically Three times daily [facility] Ranitidine 150 MG Oral Tablet ranitidine (ZANTAC) 150 MG tablet ranitidine (ZANTAC) 150 MG tablet 150 mg Oral aborted Take 150 mg by mouth Two times daily as needed for Heartburn [facility] Tamsulosin hydrochloride 0.4 MG Oral Capsule tamsulosi n (FLOMAX) 0.4 MG capsule tamsulosin (FLOMAX) 0.4 MG capsule 0.4 mg Oral abo rted Take 0.4 mg by mouth daily [facility] Aspirin 81 MG Delayed Release Oral Tablet aspirin 81 M G EC tablet aspirin 81 MG EC tablet 81 mg Oral aborted Take 81 mg by mouth daily [facility] buspirone hydrochloride 30 MG Oral Tablet busPIRone (B USPAR) 30 MG tablet busPIRone (BUSPAR) 30 MG tablet 30 mg Oral aborte d Take 30 mg by mouth Two Times Daily [facility] Folic Acid 1 MG Oral Tablet folic acid (FOLVITE) 1 MG tablet folic acid (FOLVITE) 1 MG tablet 1 mg Oral aborted Ta ke 1 mg by mouth daily. [facility] Insurance Providers Payer name Policy type / Coverage type Policy ID Covered democrat ID Covered democrat's relationship to encinas Policy [employer] Plan Information EMEDNY [id number] SP [id number] [facility] [id number] SP [id number] [facility] Commercial Insurance Co. [id number] Self [id number] [facility] MEDICARE [id number] Nohemy [id number] MEDICAID [id number] Nohemy [id number] UHC UNITED MEDICARE DUAL G [id number] Self [id number] MEDICAID [id number] Self [id number] [facility](MCAID) O [id number] S [id number] MEDICAID M [id number] [facility] Secure Horizons P [id number] S [id number] Medicaid S [id number] S [id number] [facility] Secure Horizons P [id number] S [id number] [facility] [id number] SP [id number] [facility] [id number] SP [id number] MEDICARE [id number] SP [id number] A [facility] UNITED MEDICARE DUAL G [id number] Self [id number] [facility] Comm Plan Medicare F [id number] SELF [id number] Medicaid [facility] S D [id number] SELF [id number] MEDICAID [id number] SP [id number] MEDICARE [id number] SP [id number] MEDICAID [id number] SP [id number] [facility] [id number] SP [id number] MEDICARE [id number] Nohemy [id number] A MEDICARE [id number] Nohemy [id number] A [facility] P [id number] S [id number] Medicare S [id number] S [id number] ANSI-Not a Secondary Insurance [id number] ANSI-Medicaid [id number] ANSI-Medicare Part B [id number] ANSI-Not a Secondary Insurance [id number] ANSI-Medicaid [id number] ANSI-Medicare Part B [id number] ANSI-Medicaid [id number] ANSI-Not a Secondary Insurance [id number] ANSI-Medicare Part B [id number] ANSI-Not a Secondary Insurance [id number] ANSI-Medicaid [id number] ANSI-Medicare Part B [id number] ANSI-Medicaid [id number] ANSI-Not a Secondary Insurance [id number] ANSI-Medicare Part B [id number] ANSI-Medicare Part B [id number] ANSI-Medicaid [id number] ANSI-Not a Secondary Insurance [id number] ANSI-Medicaid [id number] ANSI-Medicare Part B [id number] ANSI-Not a Secondary Insurance [id number] ANSI-Medicaid [id number] ANSI-Medicare Part B [id number] ANSI-Not a Secondary Insurance [id number] ANSI-Not a Secondary Insurance [id number] ANSI-Medicare Part B [id number] ANSI-Medicaid [id number] [facility] [id number] ANSI-Medicaid [id number] ANSI-Medicare Part B [id number] ANSI-Not a Secondary Insurance [id number] [id number] ANSI-Not a Secondary Insurance [id number] ANSI-Medicaid [id number] ANSI-Medicare Part B [id number] ANSI-Medicaid [id number] ANSI-Not a Secondary Insurance [id number] ANSI-Medicare Part B [id number] MEDICARE COMPLETE [id number] SP [id number] [facility] [id number] SP [id number] ANSI-Not a Secondary Insurance [id number] ANSI-Medicaid [id number] ANSI-Medicare Part B [id number] [facility] DUAL G [id number] Self [id number] ANSI-Medicaid [id number] ANSI-Medicare Part B [id number] ANSI-Not a Secondary Insurance [id number] [facility] DUAL G [id number] Self [id number] MEDICARE A [id number] Self [id number] [facility]IC[facility] DUAL G [id number] [facility] [id number] Self [id number] ANSI-Medicaid [id number] ANSI-Medicare Part B [id number] ANSI-Not a Secondary Insurance [id number] ANSI-Medicaid [id number] ANSI-Medicare Part B [id number] ANSI-Medicaid [id number] ANSI-Medicare Part B [id number] Medicaid S [id number] S [id number] ANSI-Medicare Part B [id number] ANSI-Medicaid [id number] ANSI-Medicare Part B [id number] ANSI-Medicaid [id number] ANSI-Medicaid [id number] ANSI-Medicare Part B [id number] ANSI-Medicaid [id number] ANSI-Medicare Part B [id number] ANSI-Medicaid [id number] ANSI-Medicare Part B [id number] ANSI-Medicare Part B [id number] ANSI-Medicaid [id number] ANSI-Medicare Part B [id number] ANSI-Medicaid [id number] ANSI-Medicare Part B [id number] ANSI-Medicaid [id number] ANSI-Medicaid [id number] ANSI-Medicare Part B [id number] ANSI-Medicare Part B [id number] ANSI-Medicaid [id number] ANSI-Medicaid [id number] ANSI-Medicare Part B [id number] ANSI-Medicare Part B [id number] ANSI-Medicaid [id number] ANSI-Medicaid [id number] ANSI-Medicare Part B [id number] ANSI-Medicaid [id number] ANSI-Medicare Part B [id number] ANSI-Medicaid [id number] ANSI-Medicare Part B [id number] ANSI-Medicare Part B [id number] ANSI-Medicaid [id number] ANSI-Medicare Part B [id number] ANSI-Medicaid [id number] ANSI-Medicaid [id number] ANSI-Medicare Part B [id number] ANSI-Medicare Part B [id number] ANSI-Medicaid [id number] [place] [id number] [id number] [place]/N[place] Medicare Primary [id number] Self [id number] MEDICARE A [id number] Self [id number] [place] [id number] Self [id number] [place] Medicare Primary [id number] Self [id number] MEDICARE [id number] SP [id number] ANSI-Medicaid [id number] ANSI-Medicare Part B [id number] ANSI-Medicare Part B [id number] ANSI-Medicaid [id number] ANSI-Medicaid [id number] ANSI-Medicare Part B [id number] MEDICAID [id number] SP [id number] MEDICARE [id number] SP [id number] A ANSI-Medicaid [id number] ANSI-Medicare Part B [id number] [place] [id number] Self [id number] Medicare [place]/[facility] Medicare Primary [id number] Self [id number] MEDICAID [id number] SP [id number] MEDICARE [id number] SP [id number] A MEDICARE C [id number] S [id number] A [facility] PART B C [id number] S [id number] MEDICAID [id number] Nohemy [id number] MEDICARE [id number] Nohemy [id number] A MEDICAID PI PI MEDICARE PI PI Medicare C [id number] SELF [id number] A [facility] C [id number] S [id number] MEDICAID [id number] SP [id number] MEDICAID [id number] SP [id number] [facility] OPTIONS C [id number] S [id number] MEDICAID [id number] SP [id number] MEDICARE [id number] SP [id number] A MEDICAID [id number] SP [id number] Medicaid Dental O [id number] S [id number] Self Pay S UNAVAILABLE S UNAVAILA BLE MEDICARE [id number] SP [id number] A Ghi FHP-(DO Not Use) Medig[place] Part B [place] Primary Self MEDICAID [id number] SP [id number] MEDICAID [id number] SP [id number] MEDICARE A [id number] Self [id number] A Medicare [place] Gov't Servi Medicare Primary Self [place] [employer] *NOTFORTODAYSVISIT* S P *NOTFORTODAYSVISIT* BCBS [facility] DIV [id number] SP [id number] [facility] [id number] [facility] [id number] [employer] FAMILY HLTH PLUS [id number] SP [id number] [employer] [facility] [id number] SP [id number] [facility] [id number] SP [id number] Problems, Conditions, and Diagnoses Code Display Name Description Problem Type Effective Dates Data Source(s) M47.816 [id number] Spondylosis without myelopathy or radiculopathy, lumbar region Problem 05/27/2020 12:00:00 AM EST eCW1 ([facility]) M47.817 32188528 Spondylosis without myelopathy or radiculopathy, lumbosacral region Problem 05/27/2020 12:00:00 AM EST eCW1 ([facility]) R32 Urinary incontinence Urinary incontinence Problem 05/22/2020 12:00:00 AM EST eCW1 ([facility]) K90.9 [id number] Intestinal malabsorption, unspecified typ e Problem 05/21/2020 12:00:00 AM EST eCW1 ([facility]) M54.41 [id number] Lumbago with sciatica, right side Problem 11/08/2019 12:00:00 AM EDT eCW1 ([facility]) F33.1 295566627 Major depressive disorder, recurrent, mod erate Problem 10/03/2019 12:00:00 AM EDT eCW1 ([facility]) F41.1 80745807 Generalized anxiety disorder Problem 020 12:00:00 AM EDT eCW1 ([facility]) F43.10 03220617 Post-traumatic stress disorder, unspecifi ed Problem 10/03/2019 12:00:00 AM EDT eCW1 ([facility]) F43.10 69117674 Post-traumatic stress disorder, unspecifi ed Problem 10/03/2019 12:00:00 AM EDT eCW1 ([facility]) F33.1 158434163 Major depressive disorder, recurrent, mod erate Problem 10/03/2019 12:00:00 AM EDT eCW1 ([facility]) F41.1 24229756 Generalized anxiety disorder Problem 020 12:00:00 AM EDT eCW1 ([facility]) G62.0 0430846 Drug-induced polyneuropathy Problem 09/09/19 12:00:00 AM EDT eCW1 ([facility]) G62.0 5869997 Drug-induced polyneuropathy Problem 09/09/19 12:00:00 AM EDT eCW1 ([facility]) N39.46 135686493 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 Problem 08/29/2019 12:00:00 AM EDT eCW1 ([facility]) R15.2 67758650 Fecal urgency Problem 08/29/2019 12:00:00 AM EDT eCW1 ([facility]) R15.9 [id number] Full incontinence of feces Problem 08/29/2019 12:00:00 AM EDT eCW1 ([facility]) R32 43376710 Unspecified urinary incontinence Problem 08/29/2019 12:00:00 AM EDT eCW1 ([facility]) M54.31 919963985 Chronic sciatica of right side Problem 08/29/2019 12:00:00 AM EDT eCW1 ([facility]) R15.2 72030812 Fecal urgency Problem 08/29/2019 12:00:00 AM EDT eCW1 ([facility]) R15.9 [id number] Full incontinence of feces Problem 08/29/2019 12:00:00 AM EDT eCW1 ([facility]) R32 53322014 Unspecified urinary incontinence Problem 08/29/2019 12:00:00 AM EDT eCW1 ([facility]) N39.46 617248008 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 Problem 08/29/2019 12:00:00 AM EDT eCW1 ([facility]) M54.31 691766736 Chronic sciatica of right side Problem 08/29/2019 12:00:00 AM EDT eCW1 ([facility]) Z68.44 940612921 Body mass index (BMI) 60.0-69.9, adult Pr oblem 05/14/2019 12:00:00 AM EST [facility] ([facility]) G89.29 41399668 Other chronic pain Problem 05/14/2019 12:00: 00 AM EST [facility] ([facility]) G89.29 28090335 Other chronic pain Problem 05/14/2019 12:00: 00 AM EST [facility] ([facility]) Z68.44 002226884 Body mass index (BMI) 60.0-69.9, adult Pr oblem 05/14/2019 12:00:00 AM EST [facility] ([facility]) I26.99 Other pulmonary embolism without acute c or pulmonale Other pulmonary embolism without acute c Diagnosis 06/26/2020 11:28:32 AM [facility] I73.9 Peripheral vascular disease, unspecified Peripheral vascular disease, unspecified Diagnosis 06/26/2020 11:28:32 AM [facility] Z95.2 Presence of prosthetic heart valve Presence of p rosthetic heart valve Diagnosis 06/26/2020 11:28:32 AM [facility] E66.01 Morbid (severe) obesity due to excess ca lories Morbid (severe) obesity due to excess ca Diagnosis 06/26/2020 11:28:32 AM [facility] G47.30 Sleep apnea, unspecified Sleep apnea, unspecified Diag nosis 06/26/2020 11:28:32 AM [facility] Z01.818 Encounter for other preprocedural examin ation Encounter for other preprocedural examin Diagnosis 06/26/2020 11:28:32 AM [facility] I10 Essential (primary) hypertension Essential (primary) h ypertension Diagnosis 02/05/2020 09:27:[address] [facility] Surgeries/Procedures Procedure Description Date Indications Data Source(s) Pain Procedure Log 06/11/2020 12:00:00 AM [place] [address] ([facility]) Medication: [place] Tablet 5mg/325mg Orally (Hydrocodone/Aceta minophen) 05/27/2020 12:00:00 AM EST eCW1 ([facility]) Unclassified drugs 05/27/2020 12:00:00 AM EST eCW1 ([facility]) Medication: [place] Tablet 5mg/325mg Orally (Hydrocodone/Aceta minophen) 03/23/2020 12:00:00 AM EST eCW1 ([facility]) Unclassified drugs 03/23/2020 12:00:00 AM EST eCW1 ([facility]) Saline Lock 03/23/2020 12:00:00 AM EST e CW1 ([facility]) Immunization: Flublok Quadrivalent (18 years & older) 0.5mL IM (Influenza) 02/28/2020 12:00:00 AM EDT eCW1 ([facility]) X-Ray Spine Lumbosacral Complete Inc Bending Views Min Of 6 12/04/2019 12:00:00 AM EDT [facility] ([facility]) SURGERY CASE REQUEST OUTSIDE FACILITY ONLY SURGERY CA SE REQUEST OUTSIDE FACILITY ONLY Routine 2019 11:14 AM EDT Right shoulder pain, unspecified chronicity 2019 03:14 :19 PM EDT Right shoulder pain, unspecified chronicity [facility] Right shoulder pain, unspecified chronic ity Office Visit, Est Pt., Level 4 PC 10/08/2019 12:00:00 AM EDT eCW1 ([facility]) Office Visit, Est Pt., Level 2 FC 10/08/2019 12:00:00 AM EDT eCW1 ([facility]) PSYTX W PT 45 MINUTES 10/04/2019 12:00:00 AM EDT eCW1 ([facility]) PSYCH DIAGNOSTIC EVALUATION 09/17/2019 12:00:00 AM EDT eCW1 ([facility]) NEB/MDI RX INITIAL 05/17/2019 12:00:00 AM EST eCW1 ([facility]) Albuterol, inhalation solution, fda-appr keri final product, non-compounded, administered through dme, unit dose, 1 mg 05/17/2019 12:00:00 AM EST eCW1 ([facility]) Influenza A+B 05/17/2019 12:00:00 AM EST eCW1 ([facility]) Results ID Date Data Source [id number] 06/23/2020 10:30:53 AM EST [facility] Name Value Range Interpretation Code Description Data Amanda rce(s) Supporting Document(s) Progress Note [facility] UZSYHp9zVpGGLeAj17/IWAzkJJErh7DlERyqJIn6SBrdGYKqP1PaVWT8kS8yPFI9KIhCRxSgRvAjDaY5 lbm [file] YbZxFAQjSIWeZYE6AubiI8X1XIe8PrEkDQIrAj4x XSANCj4+CUhzxCCxwLxqBUEAMbJ0FrFlXPmiTKXKNu3B ID Date Data Source PT & APTT 06/11/2020 12:00:00 AM EST eCW1 ([facility]) Name Value Range Interpretation Code Description Data Amanda rce(s) Supporting Document(s) 13.5 12.5-14.3 eCW1 ([facility]) 29.4 24.2-38.5 eCW1 ([facility]) 1.01 eCW1 ([facility]) ID Date Data Source Basic Metabolic Profile (BMP) 06/11/2020 12:00:00 AM EST eCW 1 ([facility]) Name Value Range Interpretation Code Description Data Amanda rce(s) Supporting Document(s) 86 70-100 eCW1 ([facility] hospital) 20 7-18 eCW1 (Critical access hospital) > 60.0 >45 eCW1 (Critical access hospital) 0.98 0.55-1.30 eCW1 (Critical access hospital) 4.4 3.5-5.1 eCW1 (Critical access hospital) 143 136-145 eCW1 ([facility] hospital) 105 98-107 eCW1 (Critical access hospital) 9.6 8.8-10.2 eCW1 (Critical access hospital) 32 21-32 eCW1 (Critical access hospital) ID Date Data Source CBC - Complete Blood Count 06/11/2020 12:00:00 AM EST eCW1 ( [facility]) Name Value Range Interpretation Code Description Data Amanda rce(s) Supporting Document(s) 8.8 4.0-10.0 eCW1 (Critical access hospital) 13.6 12.0-15.5 eCW1 (Critical access hospital) 4.71 4.00-5.40 eCW1 (Critical access hospital) 45.0 36.0-47.0 eCW1 (Critical access hospital) 95.5 80.0-96.0 eCW1 (Critical access hospital) 28.9 27.0-33.0 eCW1 (Critical access hospital) 30.2 32.0-36.5 eCW1 (Critical access hospital) 13.7 11.5-14.5 eCW1 (Critical access hospital) 187 150-450 eCW1 (Critical [facility] hospital) ID Date Data Source NT-PRO BNP 06/11/2020 12:00:00 AM EST eCW1 ([facility]) Name Value Range Interpretation Code Description Data Amanda rce(s) Supporting Document(s) 290 <125 eCW1 ([facility] hospital) ID Date Data Source [id number] 05/22/2020 11:00:00 AM EST [facility] Name Value Range Interpretation Code Description Data Amanda rce(s) Supporting Document(s) SARS coronavirus 2 RNA Not Detected [facility] This lab was ordered by [facility] and reported by [facility]. ID Date Data Source URINE CULTURE 05/22/2020 12:00:00 AM EST eCW1 ([facility]) Name Value Range Interpretation Code Description Data Amanda rce(s) Supporting Document(s) Laboratory studies (set) URINE CULTU RE eCW1 ([facility]) ID Date Data Source UA URINALYSIS 05/22/2020 12:00:00 AM EST eCW1 ([facility]) Name Value Range Interpretation Code Description Data Amanda rce(s) Supporting Document(s) Laboratory studies (set) UA URINALYS IS eCW1 ([facility]) ID Date Data Source [id number] 03/31/2020 02:37:02 PM [facility] Name Value Range Interpretation Code Description Data Amanda rce(s) Supporting Document(s) Progress Note [facility] CMGYNm1gKmLKIgJr99/SZMymTXFrj4SuXCfqAMd2IWzpPLDqV9DzNAJ8oN1yOTU0GMpKSoAmFxVlJJG6 lbm [file] AgICAgICAgICAgICAgICAgICAgICAgICAgICAgICAgICAgICAgICAgICAgICAgICAgICAgICAgICAgIC AgICAgICAgICANCiAgICAgICAgICAgICAgICAgICAg ICAgICAgICAgICAgICAgICAgICAgICAgICAgICAgICAgICAgICAgICAgICAgICAgICAgICAgICAgICAg ICAgICAgICAgICAgICAgICAgICANCiAgICAgICAgICAgICAgICAgICAgICAgICAgICAgICAgICAgICAg ICAgICAgICAgICAgICAgICAgICAgICAgICAgICAgIC AgICAgICAgICAgICAgICAgICAgICAgICAgICAgICANCiAgICAgICAgICAgICAgICAgICAgICAgICAgIC AgICAgICAgICAgICAgICAgICAgICAgICAgICAgICAgICAgICAgICAgICAgICAgICAgICAgICAgICAgIC AgICAgICAgICAgICANCiAgICAgICAgICAgICAgICAg ICAgICAgICAgICAgICAgICAgICAgICAgICAgICAgICAgICAgICAgICAgICAgICAgICAgICAgICAgICAg ICAgICAgICAgICAgICAgICAgICAgICANCiAgICAgICAgICAgICAgICAgICAgICAgICAgICAgICAgICAg ICAgICAgICAgICAgICAgICAgICAgICAgICAgICAgIC AgICAgICAgICAgICAgICAgICAgICAgICAgICAgICAgICANCiAgICAgICAgICAgICAgICAgICAgICAgIC AgICAgICAgICAgICAgICAgICAgICAgICAgICAgICAgICAgICAgICAgICAgICAgICAgICAgICAgICAgIC AgICAgICAgICAgICAgICANCiAgICAgICAgICAgICAg ICAgICAgICAgICAgICAgICAgICAgICAgICAgICAgICAgICAgICAgICAgICAgICAgICAgICAgICAgICAg ICAgICAgICAgICAgICAgICAgICAgICAgICANCiAgICAgICAgICAgICAgICAgICAgICAgICAgICAgICAg ICAgICAgICAgICAgICAgICAgICAgICAgICAgICAgIC AgICAgICAgICAgICAgICAgICAgICAgICAgICAgICAgICAgICANCiAgICAgICAgICAgICAgICAgICAgIC AgICAgICAgICAgICAgICAgICAgICAgICAgICAgICAgICAgICAgICAgICAgICAgICAgICAgICAgICAgIC AgICAgICAgICAgICAgICAgICANCjw/dJBiB0aaiINm zuX2C2tiUj4SVf3TQL7ak4HcAQXwCJqlafWyRnuSMpKrQPUqMjxRFjh9KTuqED1DeRVgF1SvE9SbDCxl US4HQJUbRLKumBWtXQTiPSIhOlW4DQCbOWcvYU8QaBXwPSnuUXYrJWIjDU3DYYPkE387kqSePY8GSd3Q ToLuUL9tcn9RCMthEPNvMffOKix1ATpqFW8HbIHdtV CqNFXcKWSDQnNqF2bml4JrFqVaLDCCVIrvWW6Mt0DspOCzKTc+Zm2NVQ2uq9ZjXOtxPYRbBV2nsy9SGC nGSnQqV1CtsQadMPMdz3niYGTsPL0vlIKgGBS8FE2gB6BfLnTyMQKqOLJPReRkaXYzPK6uOu6rFTAvLM LwAxJzSUKTFL1FNVWkLLPgbTUkXGTcUGIRCG6EFHvc CAD6YMLdxzAtlWXxOJwmZP8FJXXiniExGGviTTEJZRn+Zs6FVN5zs5HyGBrtMBBcEJ1cfi4HZCwYMjLe R8T7nOYhN7X8TNmlGw0XYXZpQWVsWCbiHQYNRMvqWM2QQW3qzuV6DQ5HyLRuIHMvNGWnbLPcNZn7V51l jYFuTBpqCA4IFVG+Faby+Qk3QVZDaQEZiCAHsPuHtVG XIExFhQ2GlE9KOe4JnG5WaSZ76yYefziIhMObxNJ0FAE6sPPHrWXMEWE6RgDSxyI2imeTcTZEgUISEAo PwG32zyKFqWOXbKVC7WJZeKm7YCMAsR1OnhxKubNdgetOwDSGxEWOQLZ1YCJobbcDnwWKxwQaoHR87oU eaRK0NRw9ICjClCY9nbs7EpYJkEh6NGKTgOz5XXVGo UXGjIQRfEMK4JWYvQkLwPGoaHTAaCKZhMUV8KMQhRJUoBA6NObDcPHLwNLmoRLutWLVlLRYqxc6TYNJu SOWmZBbdSgWcSNEmVDEzVVfcGELqDUDmBLV8AHYsJSPzPH0QPpCtXMViWOT3YaOhWFHyGMRuqn7PTICc VMWeRkMoDLZyIEYqYJUkKOxtSXTuIGYcCYh5TUWyXL RpAZ6RPpXvDLLlKDXlCHQkWWAkWLQrwe6ETTQhGDSiJiC5WAMjCEGiHBHuTBcwEXWmBKW9ATXpHSHjUB FdUN7NIdJzJXPeXRC4SmRpEIYrCATkqh9UAZJvXWDtSPebCBQgEHIwCXQzMSuuHLGxWCV7ZMG9XDLnYS TmKO6RTiUmDHHcPTU4HRIkGOZxUCYqde6BQYLsSSLf LuP7DRBlDRRxZAAxJBuwNPJfNMW7QLMbTLDaQBIuNQ2HExUvWGRuDDxyZtzeQSBfTFUnoa9CJBJgGQOz PqI5PoZnKXUvBRPyYPtgJIBiLBI5ZPW5PLLuPXEoRM6PDbJjWNXcJBd6XXYzTVPaIPSfzg3RSJUiTPVp VCQlEzGcNGNpGQIlJUq9qlPpvUYyJUy1SQ9BB7Sipm TwSfXKMz7Ye701KMLrIVShPh2CY5mcAa8qYSSeTPHMMq6JPNc4FMC4KtHbVhCbMTDnVzE1NmdgWLw0Sk S2XhF5EZMuNpO+IBc5YkWlPXEtTrHrASSgCDXkFKDwQqznPnbiDqalQbG1Gd4aDHDFTa4+DQpzdGFydH ixCUTJFmA9Pdj7VPmhETZVQe1B ID Date Data Source [id number] 04/01/2020 06:22:51 AM [facility] Value Range Interpretation Code Description Data Amanda rce(s) Supporting Document(s) Specimen source [Identifier] of Unspecified specimen [facility] SARS-CoV-2 RNA 2019 nCoV Real-Time RT-PCR: NOT DETECTED [facility] Assay Performed 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 [facility] Patient has symptoms related to [facility] When did you start to experience these symptoms [Date and time] [Phen X] [facility] Patient was hospitalized because of this condition [facility] patient was admitted to ICU for [facility] Patient resides in a congregate care setting [facility] status [facility] ID Date Data Source [id number] 03/31/2020 02:37:00 PM [facility] Name Value Range Interpretation Code Description Data Amanda rce(s) Supporting Document(s) SARS-CoV-2 RNA [facility] This lab was ordered by [facility] and reported by [facility]. ID Date Data Source [id number] 03/31/2020 01:57:00 PM [facility] Name Value Range Interpretation Code Description Data Amanda rce(s) Supporting Document(s) Progress Note [facility] FZWXYi0uBmHWRlJp07/HKNmhAHLsh6FwIZmdXLa3ZHenCGKyQ6CxVQB2nV0xJHB3GXkZEhTiCxVkLBU8 lbm [file] ICAgICAgICAgICAgICAgICAgICAgICAgICAgICAgIC AgICAgICAgICAgICAgICAgICAgICAgICAgICAgICAgICAgICANCiAgICAgICAgICAgICAgICAgICAgIC AgICAgICAgICAgICAgICAgICAgICAgICAgICAgICAgICAgICAgICAgICAgICAgICAgICAgICAgICAgIC AgICAgICAgICAgICAgICAgICANCiAgICAgICAgICAg ICAgICAgICAgICAgICAgICAgICAgICAgICAgICAgICAgICAgICAgICAgICAgICAgICAgICAgICAgICAg ICAgICAgICAgICAgICAgICAgICAgICAgICAgICANCiAgICAgICAgICAgICAgICAgICAgICAgICAgICAg ICAgICAgICAgICAgICAgICAgICAgICAgICAgICAgIC AgICAgICAgICAgICAgICAgICAgICAgICAgICAgICAgICAgICAgICANCiAgICAgICAgICAgICAgICAgIC AgICAgICAgICAgICAgICAgICAgICAgICAgICAgICAgICAgICAgICAgICAgICAgICAgICAgICAgICAgIC AgICAgICAgICAgICAgICAgICAgICANCiAgICAgICAg ICAgICAgICAgICAgICAgICAgICAgICAgICAgICAgICAgICAgICAgICAgICAgICAgICAgICAgICAgICAg ICAgICAgICAgICAgICAgICAgICAgICAgICAgICAgICANCiAgICAgICAgICAgICAgICAgICAgICAgICAg ICAgICAgICAgICAgICAgICAgICAgICAgICAgICAgIC AgICAgICAgICAgICAgICAgICAgICAgICAgICAgICAgICAgICAgICAgICANCiAgICAgICAgICAgICAgIC AgICAgICAgICAgICAgICAgICAgICAgICAgICAgICAgICAgICAgICAgICAgICAgICAgICAgICAgICAgIC AgICAgICAgICAgICAgICAgICAgICAgICANCiAgICAg ICAgICAgICAgICAgICAgICAgICAgICAgICAgICAgICAgICAgICAgICAgICAgICAgICAgICAgICAgICAg ICAgICAgICAgICAgICAgICAgICAgICAgICAgICAgICAgICANCiAgICAgICAgICAgICAgICAgICAgICAg ICAgICAgICAgICAgICAgICAgICAgICAgICAgICAgIC AgICAgICAgICAgICAgICAgICAgICAgICAgICAgICAgICAgICAgICAgICAgICANCjw/mAGyU3iwbTLyaq W3A8qvHv9DMd0WOF5xc4BsXTVeWEvijdVwOktJSrHjVKZpIsxDCrr5VTvzEB8FpVZvF4VqF9LcTQvrNM 4VATPkNZIrwRPuCHLwLFHeAsS9ILElPYupFS6AqOAb JEpeDDIrCWTtWtAsEOJvEKSsRSXoOD9PKHMuJ856upBbFc2SIf6LQvVyLK7nmv7GDpKtIGNvDehAZhq9 DFmxPI6ZrJTyuBZjEcNdQRRROvUdQ1axl8IhYiSbCLQGHXsoBW0Yg3IoyJOfFSj+Mh9GDN7ai3BsUBga UeLdOG7dbr7KQDdFTkXfQ4YzeDtyPQZil5soCUYnNN 9gzMWsJWW7LZ2yQ6ztYGajUrCWRN8eQCOfTVGnXWEofDMvSH7tTi1nZXMnCXBrXrCvQWRGVG6HMZCbKG BznYWuCJHgKMYOYA3ELOpsYNK5OQRuzeShgBDaAVitAN4OSZSvghWlWpDfHPYSIYi+Qz5ORC4nw3YlTR sdRvIsNW4hur4NZMfDOrPzD8A3cSOgO2M4IAdtJg3O KXIoSPDmClOcUEOXPBnnLO4LKH7zvnJ5YA0QjMVgICJgFXZhzNNeIFu7C88beEMkJZxvBB3YTBN+Faby+ Ss4ZAIJeFJOyBDZqEzNtJJIQFtOfG9NhJ5BTi4DuT4XdET28nSohlaWiVShhTC7MZH9tIOYdGAMJPA3N bSPjsO9hykFfDDLtVWCSLlTuG27lxDUmEYIfWLW6XD HaIt3RUFEtW0ZywxJvbEzdvbGsDZKgKJHGRF4GTGllknYxrZQxmCsoKP73mWdrIE0HRm7UJlSqYA7ewm 2OtJBnRb5YNWFfWR2OOXWtAVBzZODqGPU2NFLgRhOqSIcyINUoWAMqRTC7VHBhCRPdHR6SZlUfBIUwTw khNDCcKXWdZYCreu9DECTgREFeKDqfAXMvSWYoWMHy LTesHDZsVELgAAH0CTKtRYGoEW0IFbAoBPYxMNRbYfEwFIJlGJIgvt0YTMDhLFXaMzB7TMOrZAKnZZJi GRxqLXClXSO3DLE8QTVwJVEmCV6SJbBnDOAmSGFoSfBdTRWsDLFbad4WWKQlEYYkVcS6DhLjDOFbSSJw FBrrIVEoMTW7NZRpGEVaAJTbSG9TPbNcGLQhBJv3ZX KyNCXsITJgbs8JWPJbFGKbHIMtNDOvIXLkIXIzMOqtCULdUFW5ENduGWOeKZHeRV1YEmCvCXAvIVHdXN QfDJCdMAQhyo0RPLLwJIZcFLY1ZpZqHTQmIYSeWZimILIsXSTyAHBiBFWuJBTmYS6IVoBcUDEdLkE4Ri MnMLBgFEUvqh1EDHLlLRUfJaG9ZJKoFLEcISPyKIdd BVJeVADqKZF4SHCmQSIsCR1ROgBtHQDwCuJ1QJIzUMTrEHBfsd2DMURtVAErFrnlAFPqKVMkMUPmBFjy QVShTEExXBLxUOCzLLQrTO5ZXmUsXPQbZwNfIwegTNQoNOActf4PSNXoVTPzQOJaUOSiHQRzCRKbYRns DPUiLLC2RJX8ZHAbGPGkOM4KGyGdUBOvNrXjZnAqDA UgOCUhny5XBPSyPZEsBHHvRMLfPOErVCDpHSqnSWGaXEY9PDW8RHTvRQOtAL1STgBxIFCdXjH1FrilEF MuKQDlsp0RGEYdMEPnWrahLKQmADGaHSQsUEeyYUHfIIK9ScX9IQFvFPSgMR9VDzVuBYVjJgv1XNFnVS WqXTPfmn8VUXRiTZFrJQJhQXLhFIVgBKQkCHuhVBBo EBW2MDe4MHFzPAZmPF1FSgOrVMBlNvBfLVOuRWIxFHHule2TWWSyOHXtEBFzIjOxEBPhVLVnMYtiJEJe WVPdZyL8RLBlOUHoTM2GLbMfXMdjLASZCjy4LHrvV4p3TLDuAQ8AA0Uky7IuPuehFIDCSBkwAY4oelNm EGGnYx6QV5sTViptSxR0OeQeRBItABF8XwQ1XhAeYm o8PVQ4YjLxSSAmCq8lLQWlTItrJEKcAZEkEUihOGkzJMB9JqDnDWvoHzVbOKFuFxQwVI7GBw6MZzH0DO K9rABiSq0ADzR4EWROUtRrOP0RAOo= ID Date Data Source [id number] 03/18/2020 10:00:00 AM EST [facility] Name Value Range Interpretation Code Description Data Amanda rce(s) Supporting Document(s) SARS coronavirus 2 RNA [facility] This lab was ordered by [facility] and reported by [facility]. ID Date Data Source [id number] 03/18/2020 08:17:41 AM [facility] Vital SignsBlood Pressure: 132/89 Patient History Medical History:aortic replacement- August- PREMED shoulder replacementosteoarthritsbi-lateral knee replacementhx of MRSAabdomnial hernia repear surgerysleep apneaanemiamigrinekidney stoneshypertentionrestless leg syndromeanxietyBacteria EndocriditisSurgical History:Family History:Diabetes (Mother)Heart disease (Mother)Hypertension (Mother, Maternal Grandfather)Social/Personal History: Current Problems: Dental caries (ICD-521.00) (VJP93-W16.9)Problem list reviewed during this update.Current Medications: * CHLONIDINE * ASPRIN * HYDROCHLOROTHIAZ MATTHIEU * BUPROPION * CYMBALTA * ROPINIROLE * VITAMIN D * SUMATIPTAN SUCCINATE * CYCLOBENZAPRIANE * B-12 * MAGNESIUM * FOLIC ACID Medication list reviewed during this update.Current Allergies: * AMOXICILLIN (Critical)* TETRACYCLINE (Critical)* VENCOMYCIN (Critical)* SULFA DRUGS (Critical)* PENICILLIN (Critical)* FETENYL (Critical)* ERYTROMYCIN (Critical)Allergy list reviewed during this update.Past Medical History:(reviewed - no changes required) aortic replacement- August- PREMED shoulder replacementosteoarthritsbi-lateral knee replacementhx of MRSAabdomnial hernia repear surgerysleep apneaanemiamigrine kidney stoneshypertentionrestless leg syndromeanxietyBacteria Endocriditis Dental Chart: Procedures:Type - CDT Code - Description B - (D0274) Bitewings, 4 radiographic images (Performed by Millicent Martinez RDH) B - (D0120) Periodic oral evaluation - established patient (Performed by Inés Baca DDS) B - (D1110) Prophylaxis, adult (Performed by Millicent Martinez RDH) Chart Alert:Pre MED Chart Notes:kayy (Mar 18 2020 10:51AM): Additional PPE requirements due to COVID-19 in the dental setting, N95, surgical mask, hair covering, gown. [facility] with patient. No problems or concerns today. Pt. took her premed 1 hour before apt. Adult prophy- handscaled, s[place]- mint prophy paste, floss, 4 BW'sOral cancer screening-no significant findings. Tempature taken in the lobby [place]-Patient brushes twice/day and is not flossing regularlyLT gen marginal biofilm and marginal/introproximal calculus on LA. Tissues are red, inflammed, and bleeding in sextant 5OHI- Advise to brush 2x a day and floss everyday. Recommended Sensodyne for sensitivity to cold. Recommended Listerine zeroPatient is cooperative. NV- 6 month recallMillicent Martinez RDH by kayy (03/18/2020 8:44 AM): ; emerson (Mar 18 2020 11:26AM): Kathy(-). CC: none. Reviewed Xrays. Exam: no caries detected. OCS: WNL, IO/ EO completed, No significant hard findings upon clinical exam.Additional PPE requirements due to COVID-19 in the dental setting, N95, surgical mask, hair covering, gown and shieldPt was cooperative. OHI given Referral: N/A NV:recallMillicent Martinez RDH by emerson (03/18/2020 11:26 AM): Tooth Notes and Watches:- Tooth 28 Watch: Carmen Espinoza by jacque (02/16/2017 2:13 PM): - Tooth 5 Watch: Carmen Espinoza by jacque (02/16/2017 2:12 PM): - Tooth 6 Note: needs premed.Carmen Garner by emerson (08/22/2017 11:01 AM): Assessment & Plan Medications:CHLONIDINEASPRINHYDROCHLOROTHIAZIDEBUPROPIONCYMBALTAROPINIROLEVITAMI N DSUMATIPTAN SUCCINATECYCLOBENZAPRIANEB-12MAGNESIUMFOLIC ACIDAllergies:* AMOXICILLIN (Critical)* TETRACYCLINE (Critical)* VENCOMYCIN (Critical)* SULFA DRUGS (Critical)* PENICILLIN (Critical)* FETENYL (Critical)* ERYTROMYCIN (Critical) Name Value Range Interpretation Code Description Data Amanda rce(s) Supporting Document(s) ID Date Data Source [id number] 02/20/2020 04:04:13 PM EDT [facility] PCName: Courtney StarrDOB: 1955Provider: Lissy ArshadAUDREY: 02/18/2020 Reason For VisitCourtney Starr is an established patient here for follow up. [facility] DOI: 01/22/2019. Patient states they are disabled. History of Present IllnessPatient follows up today to review the MRI of her left hip. Patient continues to have groin pain. She had an injection into the hip which really did not help much. She also had a MRI of her lumbar spine previously by an outside provider. She is currently in pain management. She complains of numbness and tingling in her feet. She states this is chronic. No loss of bowel or bladder control. Results/Data MRIMRI Results: Left: hips I reviewed the MRI images (films) and the report of the Radiologist. MRI of the left hip is reviewed with Dr. Reynolds. There does show labral degeneration as well as degenerative changes in the hip. We are still waiting on the MRI report from her lumbar spine MRI. AssessmentPatient with left hip primary osteoarthritis and low back pain. PlanUnfortunately I do not have a lot to offer the patient for her hip. With a BMI of 65 she is not a surgical candidate for arthroscopic surgery or hip replacement. Dr. Reynolds states the only thing that we can provide for the patient would be pain management but she is already seeing 1 in [place]. We did receive the MRI report of her lumbar spine which did show spinal stenosis. 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 I will discuss this with the patient when I call her and talk to her about her MRI of her spine. I also discussed this with our spine team and they would recommend injections first before proceeding with any type of more invasive treatment due to her BMI. She is neurovascularly intact today. It was a little hard to assess reflexes due to her body habitus. No obvious deficits were noted. Work / School NoteThe percentage of temporary impairment is 0%. The patient is not working at this time. This document was dictated and electronically signed using StrongView software. A reasonable attempt at proof reading has been made to minimize errors. Please call with any questions. AddendumAmended 02/20/2020 01:03 PM by Lissy Arshad I called the patient regarding her MRI of her lumbar spine. She states she had this done at the emergency department. I went over the results with her. Also noted a cortical lesion of the left kidney which the patient states she is familiar with with. She does have a urologist but is going to see her PCP next week and is going to discuss this further with them at that visit. I also spoke with Farzana and our spine department and she stated that she is willing to evaluate the patient but probably would start her off with some injections in her lumbar spine initially for her issues. Patient would like to see our spine department although she already is in pain management. Signatures Electronically signed by : Lissy Arshad PA-C; Feb 19 2020 8:39AM EST (Author) Electronically signed by : Roberta Reynolds M.D.; Feb 19 2020 9:10AM EST (Author) Electronically signed by : Lissy Arshad PA-C; Feb 20 2020 1:04PM EST (Author) Electronically signed by : Roberta Reynolds M.D.; Feb 20 2020 4:04PM EST (Author) Name Value Range Interpretation Code Description Data Amanda rce(s) Supporting Document(s) ID Date Data Source [id number] 11/27/2019 12:15:[address] [facility], [place] CT 3D RECON INDEPENDENT [id number] RESUL TInterpreted by:Ravinder Marion MDEXAM: CT right shoulder with 3-D reconstructionsHISTORY: GILL protocol right shoulder. Shoulder pain.COMPARISON: X-rays 2019, CT 02/08/2018PROCEDURE: Axial images of the right shoulder were obtained. Multiplanar reconstructions and 3-D reconstructions reviewed.One or more of the following dose reduction techniques were utilized in effectively lowering the radiation dose for this examination: Automated Exposure Control, Adjustment of the mA and/or kV according to patient size, or Iterative reconstruction. FINDINGS: Metallic total shoulder prosthesis is seen on x-ray from 10/02/2015. This was removed prior to the previous CT.The humerus is dislocated anteriorly and medially. The humeral head has been partially resected from previous hardware insertion. The margins of the resection are flattened and sclerotic.The glenoid is small, flattened and shallow. There are multiple ossific densities adjacent to the glenoid measuring up to 5 mm. These are unchanged. Moderate joint effusion.No acute fracture. No destructive bone lesion.Marked atrophy of the rotator cuff muscles. Marked fatty atrophy of the supraspinatus, infraspinatus, subscapularis and teres minor.Mild joint space narrowing and marginal hypertrophic changes in the acromioclavicular joint.IMPRESSION: Prior removal of total shoulder prosthesis. The humeral head and glenoid are small, flattened and sclerotic. There is a moderate joint effusion with multiple ossific densities adjacent to the glenoid. Marked atrophy of the rotator cuff muscles. These findings are similar to the previous study. This document has been electronically signed by Ravinder Marion MD on 11/27/2019 12:13 PM Name Value Range Interpretation Code Description Data Amanda rce(s) Supporting Document(s) ID Date Data Source [id number] 11/27/2019 12:14:[address] [facility] [place] CT UPPER EXTREMITY WITHOUT CONTRAST 7320 0FINAL RESULTInterpreted by:Ravinder Marion MDEXAM: CT right shoulder with 3-D reconstructionsHISTORY: GILL protocol right shoulder. Shoulder pain.COMPARISON: X-rays 2019, CT 02/08/2018PROCEDURE: Axial images of the right shoulder were obtained. Multiplanar reconstructions and 3-D reconstructions reviewed.One or more of the following dose reduction techniques were utilized in effectively lowering the radiation dose for this examination: Automated Exposure Control, Adjustment of the mA and/or kV according to patient size, or Iterative reconstruction. FIND INGS: Metallic total shoulder prosthesis is seen on x-ray from 10/02/2015. This was removed prior to the previous CT.The humerus is dislocated anteriorly and medially. The humeral head has been partially resected from previous hardware insertion. The margins of the resection are flattened and sclerotic.The glenoid is small, flattened and shallow. There are multiple ossific densities adjacent to the glenoid measuring up to 5 mm. These are unchanged. Moderate joint effusion.No acute fracture. No destructive bone lesion.Marked atrophy of the rotator cuff muscles. Marked fatty atrophy of the supraspinatus, infraspinatus, subscapularis and teres minor.Mild joint space narrowing and marginal hypertrophic changes in the acromioclavicular joint.IMPRESSION: Prior removal of total shoulder prosthesis. The humeral head and glenoid are small, flattened and sclerotic. There is a moderate joint effusion with multiple ossific densities adjacent to the glenoid. Marked atrophy of the rotator cuff muscles. These findings are similar to the previous study. This document has been electronically signed by Ravinder Marion MD on 11/27/2019 12:12 PM Name Value Range Interpretation Code Description Data Amanda rce(s) Supporting Document(s) ID Date Data Source [id number] 11/26/2019 12:00:00 AM EDT [facility] Roberta Morris MD [facility] [facility] Date of : 1955[place] [id number] Date of Exam: 11/26/2019PH#: Fax: [phone] EXAM: MRI HIP LEFT WITHOUT CONTRASTCLINICAL INFORMATION: Left hip pain, no trauma.TECHNIQUE:3T multiplanar MRI imaging of the left hip was obtained using varioussequences.Comparison xray 06/19/2019, limited MRI hip without contrast 06/16/2017.FINDINGS:The whole pelvic imaging for marrow demonstrates lower lumbar degenerativedisc changes at L4-5 and L5-S1. Marrow signal was normal at L5 and thesacrum. The iliac bones, acetabuli, ischia and hips show no focalabnormality. I do not see significant joint effusion with only trace fluidin the joint and a small paralabral sulcus. There is gluteus mediustendinobursitis and edema in the muscle near attachment on the greatertrochanter. No fracture identified. The obturator internus, iliopsoas andhamstring tendon insertions are seen without a tear. There is some edemaat hamstring insertions on both sides. There is lesser trochanterictendinobursitis on the right side on whole pelvic imaging and a smallerzone of tendinobursitis at the greater trochanter.Bladder only partially filled. There is no pelvic free fluid or mass inthese images.IMPRESSION:1. Trochanteric tendinobursitis about the left hip with small amount offluid on the left, small effusion on the right. No loose bodies.2. No gross labral tear with a paralabral sulcus noted on that right side. Some labral degeneration may be present.3. Some edema at tendon insertions for the hamstrings on the inferiorpubic ramus. The iliopsoas and obturator internus tendons grossly intact.Accredited by the [employer] in MR.Chely Mcbride, JRJL/Deepak you for referring COURTNEY STARR to our office. Electronically Signed - CHELY MCBRIDE MD 11/27/19 16:35 Name Value Range Interpretation Code Description Data Amanda rce(s) Supporting Document(s) ID Date Data Source [id number] 2019 01:06:52 PM EDT [facility] XR SHOULDER COMPLETE [id number] RESULTIn terpreted by:SANDRA Mendozalinical history: Right shoulder painViews: 4 views right shoulderIndication: Check for sources of pain right shoulderFindings: Patient has had a resection arthroplasty of the right shoulder. At one point there was a reverse arthroplasty in here but that is been absent for 2 years now. Proximal humerus appears rounded and appears to be articulating with the undersurface of the acromial arch. Bone appears quite osteopenic. Visualized portion of the clavicle appears normal.Impression: Status post resection arthroplasty right shoulderThis document has been electronically signed by Bennie Warren MD on 2019 1:04 PM Name Value Range Interpretation Code Description Data Amanda rce(s) Supporting Document(s) ID Date Data Source [id number] 2019 11:24:48 AM EDT [facility] Name Value Range Interpretation Code Description Data Amanda rce(s) Supporting Document(s) Progress Note [facility] [id number] lbm [file] ID Date Data Source [id number] 11/06/2019 08:14:23 AM EDT [facility]: Courtney Bro: 1955Provider: Stew Reynolds: 11/05/2019 Reason For VisitVerbal consent obtained from the patient for telemedicine visit. This assessment was done using telemedicine as a result of social distancing due to the outbreak of COVID-19. 7 MINUTES minutes for review of chart, virtual visit itself, and documentation. PlanA virtual visit was performed today in view of the Navarro virus. A virtual visit rather than an office visit is felt to be appropriate in view of increased risks due to the Navarro virus. Patient identification was performed in the appropriate manner.Assessment:Low back pain with radiculopathy both legs.Left hip primary osteoarthritisDebra's pain is still significant. She did get some good relief from the left hip injection but only when the local anesthetic was in place and not from the cortisone.She describes buttock pain and back pain with numbness in her legs. 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 She had x-rays about three months ago which do confirm significant degenerative change with spondylolisthesis of L3 to L5.Based on the lack of significant radiographic findings, the significant relief from the pain even just from a local anesthetic, MRI of the left hip is also requested. Signatures Mark dash signed by : Shira Tripp, ; Nov 06 2019 7:14AM EST Electronically signed by : Roberta Reynolds M.D.; Nov 06 2019 8:14AM EST (Author) Name Value Range Interpretation Code Description Data Amanda rce(s) Supporting Document(s) ID Date Data Source [id number] 10/30/2019 08:19:00 AM EDT [facility]) Name Value Range Interpretation Code Description Data Amanda rce(s) Supporting Document(s) Hemoglobin [Mass/volume] in Blood 14.1 12.0-15.5 [facility] ([facility]) ID Date Data Source [id number] 10/30/2019 08:19:00 AM EDT [facility] ([facility] Name Value Range Interpretation Code Description Data Amanda rce(s) Supporting Document(s) Erythrocytes [#/volume] in Blood by Automated count 4.78 4.00-5 .40 [facility] ([facility]) ID Date Data Source [id number] 10/30/2019 08:19:00 AM EDT [facility] ([facility]) Name Value Range Interpretation Code Description Data Amanda rce(s) Supporting Document(s) Leukocytes [#/volume] in Blood by Automated count 6.6 4.0-10.0 [facility] ([facility]) ID Date Data Source [id number] 10/30/2019 08:19:00 AM EDT [facility] ([facility]) Name Value Range Interpretation Code Description Data Amanda rce(s) Supporting Document(s) Calcium [Moles/volume] in Serum or Plasma 9.1 8.8-10.2 [facility] ([facility]) ID Date Data Source [id number] 10/30/2019 08:19:00 AM EDT [facility] ([facility]) Name Value Range Interpretation Code Description Data Amanda rce(s) Supporting Document(s) Anion gap 3 in Serum or Plasma 3 8-16 [facility] ([facility]) ID Date Data Source [id number] 10/30/2019 08:19:00 AM EDT [facility] ([facility]) Name Value Range Interpretation Code Description Data Amanda rce(s) Supporting Document(s) Carbon dioxide, total [Moles/volume] in Serum or Plasma 31 21 -32 [facility] ([facility]) ID Date Data Source [id number] 10/30/2019 08:19:00 AM EDT [facility] ([facility]) Name Value Range Interpretation Code Description Data Amanda rce(s) Supporting Document(s) Chloride [Moles/volume] in Serum or Plasma 104 98-107 [facility] ([facility]) ID Date Data Source [id number] 10/30/2019 08:19:00 AM EDT [facility] ([facility]) Name Value Range Interpretation Code Description Data Amanda rce(s) Supporting Document(s) Potassium [Moles/volume] in Serum or Plasma 4.3 3.5-5.1 [facility] ([facility]) ID Date Data Source [id number] 10/30/2019 08:19:00 AM EDT [facility] ([facility]) Name Value Range Interpretation Code Description Data Amanda rce(s) Supporting Document(s) Sodium [Moles/volume] in Serum or Plasma 138 136-145 [facility] ([facility]) ID Date Data Source [id number] 10/30/2019 08:19:00 AM EDT [facility] ([facility]) Name Value Range Interpretation Code Description Data Amanda rce(s) Supporting Document(s) Glomerular filtration rate/1.73 sq M.pre dicted [Volume Rate/Area] in Serum or Plasma by Creatinine-based formula (MDRD) Laboratory test result [facility] ([facility]) ID Date Data Source [id number] 10/30/2019 08:19:00 AM EDT [facility] ([facility]) Name Value Range Interpretation Code Description Data Amanda rce(s) Supporting Document(s) Creatinine [Mass/volume] in Serum or Plasma 0.99 0.55-1.30 [facility] ([facility]) ID Date Data Source [id number] 10/30/2019 08:19:00 AM EDT [facility] ([facility]) Name Value Range Interpretation Code Description Data Amanda rce(s) Supporting Document(s) Urea nitrogen [Mass/volume] in Serum or Plasma 17 7-18 [facility] ([facility]) ID Date Data Source [id number] 10/30/2019 08:19:00 AM EDT [facility] ([facility]) Name Value Range Interpretation Code Description Data Amanda rce(s) Supporting Document(s) Glucose [Mass/volume] in Serum or Plasma 109 70-100 [facility] ([facility]) ID Date Data Source [id number] 10/30/2019 08:19:00 AM EDT [facility] ([facility]) Name Value Range Interpretation Code Description Data Amanda rce(s) Supporting Document(s) Calcium oxalate crystals [Presence] in Urine sediment by Light microscopy Laboratory test result [facility]) ID Date Data Source [id number] 10/30/2019 08:19:00 AM EDT [facility] ([facility]) Name Value Range Interpretation Code Description Data Amanda rce(s) Supporting Document(s) Granular casts [Presence] in Urine sediment by Light microscopy 1 [facility] ([facility]) ID Date Data Source [id number] 10/30/2019 08:19:00 AM EDT [facility] ([facility]) Name Value Range Interpretation Code Description Data Amanda rce(s) Supporting Document(s) Urine Hyaline Casts (Auto) 0 0-1 [facility] ) ID Date Data Source [id number] 10/30/2019 08:19:00 AM EDT [facility] ([facility] Name Value Range Interpretation Code Description Data Amanda rce(s) Supporting Document(s) Mucus [Presence] in Urine sediment by Light microscopy Laborator y test result [facility] ([facility] ) ID Date Data Source [id number] 10/30/2019 08:19:00 AM EDT [facility] ([facility]) Name Value Range Interpretation Code Description Data Amanda rce(s) Supporting Document(s) Epithelial cells.squamous [#/area] in Urine sediment by Automate d count 8 0-6 [facility] ([facility] ID Date Data Source [id number] 10/30/2019 08:19:00 AM EDT [facility] ([facility] Name Value Range Interpretation Code Description Data Amanda rce(s) Supporting Document(s) Bacteria [Presence] in Urine by Automated Laboratory test result [facility] ([facility] ) ID Date Data Source [id number] 10/30/2019 08:19:00 AM EDT [facility] ([facility] ) Name Value Range Interpretation Code Description Data Amanda rce(s) Supporting Document(s) Erythrocytes [#/volume] in Urine by Automated count 12 0-3 [facility] ([facility] ) ID Date Data Source [id number] 10/30/2019 08:19:00 AM EDT [facility] ([facility] ) Name Value Range Interpretation Code Description Data Amanda rce(s) Supporting Document(s) Leukocytes [#/area] in Urine sediment by Automated count 24 0 -3 [facility] ([facility] ) ID Date Data Source [id number] 10/30/2019 08:19:00 AM EDT [facility] ([facility] ) Name Value Range Interpretation Code Description Data Amanda rce(s) Supporting Document(s) Hemoglobin [Presence] in Urine by Automated test strip Laborator y test result [facility] ([facility] ) ID Date Data Source [id number] 10/30/2019 08:19:00 AM EDT [facility] ([facility] ) Name Value Range Interpretation Code Description Data Amanda rce(s) Supporting Document(s) Leukocyte esterase [Presence] in Urine by Automated te st strip Laboratory test result [facility] ([facility]) ID Date Data Source [id number] 10/30/2019 08:19:00 AM EDT [facility] ([facility]) Name Value Range Interpretation Code Description Data Amanda rce(s) Supporting Document(s) Nitrite [Presence] in Urine by Automated test strip Laboratory test result [facility] ([facility]) ID Date Data Source [id number] 10/30/2019 08:19:00 AM EDT [facility] ([facility]) Name Value Range Interpretation Code Description Data Amanda rce(s) Supporting Document(s) Bilirubin.total [Presence] in Urine by Automated test strip Laboratory test result [facility]) ID Date Data Source [id number] 10/30/2019 08:19:00 AM EDT [facility] ([facility]) Name Value Range Interpretation Code Description Data Amanda rce(s) Supporting Document(s) Urobilinogen [Presence] in Urine by Automated test strip 0.2 0 .0-2.0 [facility] ([facility]) ID Date Data Source [id number] 10/30/2019 08:19:00 AM EDT [facility] ([facility]) Name Value Range Interpretation Code Description Data Amanda rce(s) Supporting Document(s) Ketones [Presence] in Urine by Automated test strip Laboratory test result [facility] ([facility]) ID Date Data Source [id number] 10/30/2019 08:19:00 AM EDT [facility] ([facility]) Name Value Range Interpretation Code Description Data Amanda rce(s) Supporting Document(s) Glucose [Presence] in Urine by Automated test strip Laboratory test result [facility] ([facility]) ID Date Data Source [id number] 10/30/2019 08:19:00 AM EDT [facility] ([facility]) Name Value Range Interpretation Code Description Data Amanda rce(s) Supporting Document(s) Lymphocytes [#/volume] in Blood by Automated count 1.7 1.5-5.0 [facility] ([facility]) ID Date Data Source [id number] 10/30/2019 08:19:00 AM EDT [facility] ([facility]) Name Value Range Interpretation Code Description Data Amanda rce(s) Supporting Document(s) Neutrophils [#/volume] in Blood by Automated count 4.1 1.5-8.5 [facility] ([facility]) ID Date Data Source [id number] 10/30/2019 08:19:00 AM EDT [facility] ([facility]) Name Value Range Interpretation Code Description Data Amanda rce(s) Supporting Document(s) Monocytes [#/volume] in Blood by Automated count 0.7 0.0-0.8 [facility] ([facility]) ID Date Data Source [id number] 10/30/2019 08:19:00 AM EDT [facility] ([facility]) Name Value Range Interpretation Code Description Data Amanda rce(s) Supporting Document(s) Eosinophils [#/volume] in Blood by Automated count 0.1 0.0-0.5 [facility] ([facility]) ID Date Data Source [id number] 10/30/2019 08:19:00 AM EDT [facility] ([facility]) Name Value Range Interpretation Code Description Data Amanda rce(s) Supporting Document(s) Nucleated erythrocytes/100 leukocytes [Ratio] in Blood by Au tomated count 0.0 0-0 [facility]) ID Date Data Source [id number] 10/30/2019 08:19:00 AM EDT [facility] ([facility]) Name Value Range Interpretation Code Description Data Amanda rce(s) Supporting Document(s) Immature granulocytes/100 leukocytes in Blood by Automated count 0.3 0-3.0 [facility] ([facility]) ID Date Data Source [id number] 10/30/2019 08:19:00 AM EDT [facility] ([facility]) Name Value Range Interpretation Code Description Data Amanda rce(s) Supporting Document(s) Basophils/100 leukocytes in Blood by Automated count 0.3 0.0-1 .0 [facility] ([facility]) ID Date Data Source [id number] 10/30/2019 08:19:00 AM EDT [facility] ([facility]) Name Value Range Interpretation Code Description Data Amanda rce(s) Supporting Document(s) Basophils [#/volume] in Blood by Automated count 0.0 0.0-0.2 [facility] ([facility]) ID Date Data Source [id number] 10/30/2019 08:19:00 AM EDT [facility] ([facility]) Name Value Range Interpretation Code Description Data Amanda rce(s) Supporting Document(s) Appearance of Urine Laboratory test result [facility] ([facility]) ID Date Data Source [id number] 10/30/2019 08:19:00 AM EDT [facility] ([facility]) Name Value Range Interpretation Code Description Data Amanda rce(s) Supporting Document(s) Color of Urine by Auto Laboratory test result [facility] ([facility]) ID Date Data Source [id number] 10/30/2019 08:19:00 AM EDT [facility] ([facility]) Name Value Range Interpretation Code Description Data Amanda rce(s) Supporting Document(s) pH of Urine by Automated test strip 6.0 5.0-9.0 [facility] ([facility]) ID Date Data Source [id number] 10/30/2019 08:19:00 AM EDT [facility] ([facility]) Name Value Range Interpretation Code Description Data Amanda rce(s) Supporting Document(s) Specific gravity of Urine by Automated test strip 1.015 1.002-1. 035 [facility] ([facility]) ID Date Data Source [id number] 10/30/2019 08:19:00 AM EDT [facility] ([facility]) Name Value Range Interpretation Code Description Data Amanda rce(s) Supporting Document(s) Protein [Presence] in Urine by Automated test strip Laboratory test result [facility] ([facility]) ID Date Data Source [id number] 10/30/2019 08:19:00 AM EDT [facility] ([facility]) Name Value Range Interpretation Code Description Data Amanda rce(s) Supporting Document(s) Eosinophils/100 leukocytes in Blood by Automated count 1.2 0.0 -3.0 [facility] ([facility]) ID Date Data Source [id number] 10/30/2019 08:19:00 AM EDT [facility] ([facility]) Name Value Range Interpretation Code Description Data Amanda rce(s) Supporting Document(s) Monocytes/100 leukocytes in Blood by Automated count 10.1 0.0-5 .0 [facility] ([facility]) ID Date Data Source [id number] 10/30/2019 08:19:00 AM EDT [facility] ([facility]) Name Value Range Interpretation Code Description Data Amanda rce(s) Supporting Document(s) Lymphocytes/100 leukocytes in Blood by Automated count 26.0 24. 0-44.0 [facility] ([facility]) ID Date Data Source [id number] 10/30/2019 08:19:00 AM EDT [facility] ([facility]) Name Value Range Interpretation Code Description Data Amanda rce(s) Supporting Document(s) Neutrophils [#/volume] in Blood by Automated count 62.1 36.0-66 .0 [facility] ([facility]) ID Date Data Source [id number] 10/30/2019 08:19:00 AM EDT [facility] ([facility]) Name Value Range Interpretation Code Description Data Amanda rce(s) Supporting Document(s) Platelets [#/volume] in Blood by Automated count 177 150-450 [facility] ([facility]) ID Date Data Source [id number] 10/30/2019 08:19:00 AM EDT [facility] ([facility]) Name Value Range Interpretation Code Description Data Amadna rce(s) Supporting Document(s) Erythrocyte distribution width [Ratio] by Automated count 13.1 11.5-14.5 [facility] ([facility]) ID Date Data Source [id number] 10/30/2019 08:19:00 AM EDT [facility] ([facility]) Name Value Range Interpretation Code Description Data Amanda rce(s) Supporting Document(s) Erythrocyte mean corpuscular hemoglobin concentration [Mass/volume] by Automated count 31.3 32.0-36.5 [facility] ID Date Data Source [id number] 10/30/2019 08:19:00 AM EDT [facility] ([facility]) Name Value Range Interpretation Code Description Data Amanda rce(s) Supporting Document(s) Erythrocyte mean corpuscular hemoglobin [Entitic mass] by Au tomated count 29.5 27.0-33.0 [facility]) ID Date Data Source [id number] 10/30/2019 08:19:00 AM EDT [facility] ([facility]) Name Value Range Interpretation Code Description Data Amanda rce(s) Supporting Document(s) Erythrocyte mean corpuscular volume [Entitic volume] by Auto mated count 94.4 80.0-96.0 [facility]) ID Date Data Source [id number] 10/30/2019 08:19:00 AM EDT [facility] ([facility]) Name Value Range Interpretation Code Description Data Amanda rce(s) Supporting Document(s) Hematocrit [Volume Fraction] of Blood by Automated count 45.1 3 6.0-47.0 [facility] ([facility]) ID Date Data Source [id number] 10/10/2019 10:54:26 AM EDT [facility] Courtney StarrB: 1955Provider: Stew Reynolds: 10/08/2019 PlanAssessment:Left leg pain.Courtney had a bone scan which did not show any uptake in the hip, pelvis or knees. She has some uptake in her feet with arthritis. I injected the left hip today as a diagnostic maneuver, 80 mg of Depo-Medrol, 5 cc's of Lidocaine.She will call in three weeks for a Virtual Visit to let us now if this has helped.Right now I am not entirely sure what her problems is and we may have to work it up further. Signatures Electronically signed by : Migdalia Trujillo, ; Oct 09 2019 4:39PM EST Electronically signed by : Roberta Reynolds M.D.; Oct 10 2019 10:54AM EST (Author) Name Value Range Interpretation Code Description Data Amanda rce(s) Supporting Document(s) ID Date Data Source [id number] 10/03/2019 03:45:00 PM EDT [facility] PATIENT MR#: [id number] NAME: Courtney Mora DATE OF : 1955REFERRING PHYSICIAN: Roberta Mercado DATE: 10/03/2019EXAM: BONE SCANINDICATION: Left total knee arthroplasty 2007. Left knee locking and painfulfor the past 4?5 months. Fell 3 weeks ago onto the right knee. Now withbilateral knee pain, left hip and groin pain.COMPARISON: X-rays of the knees 07/18/2019Procedure: After intravenous injection of 27.2 mCi of Tc-99m HDP, images of thewhole body were obtained in the anterior and posterior projection. Additionalstatic images of the thorax, abdomen and pelvis were obtai inga.FINDINGS: There are photopenic defects in both knees from metallic prostheses. Activity around the prostheses is normal.Marked increased activity in both ankles and mid feet. This is likely fromosteoarthritis.No abnormal activity seen in the spine, pelvis or hips.IMPRESSION: 1. Bilateral knee prostheses. Activity around the prostheses is normal. Noevidence of loosening or fracture.2. Marked increased activity in the ankles and mid feet bilaterally. This ismost likely from osteoarthritis.Read by: RAVINDER MARIONTranscribed by: RAVINDER MARIONTranscribed Date: 10/03/2019 3:45:10 PMEl ectronically signed by: RAVINDER MARIONDate signed: 10/03/2019 3:45:10 PM Name Value Range Interpretation Code Description Data Amanda rce(s) Supporting Document(s) ID Date Data Source [id number] 09/30/2019 05:50:[address] [facility] Name Value Range Interpretation Code Description Data Amanda rce(s) Supporting Document(s) &PDF [facility] VRULOk7nBuDZLrOc30/JBYevRVPwx3ZkAZfpOIc3OAhdQUPhR1IytVegTR8IGN5DS3ZMBSTZHwMFQKZk vci [file] ICAgICAgICAgICAgICAgICAgICAgICAgICAgICAgICAgICAgICAgICAgICAgICAgICAgICAgICAgICAg ICAgICAgICAgICAgICAgICAgICAgICAgICAgICAgIC BsRHArCVHfIY6XMPQwLGTvCCUbZKUrTQApAFYqAHAkWDHeHZSgGEUlXAIkASLwKXBbBSJyLOSwQRGrIS QuAUByTFXwMVYkUBMiFIJlTZZpZJLsHPOzKDEuVWXjOUWcOSRmWPLrFSOcQEGiUVNlIN0YPLTaXHGwRX AgICAgICAgICAgICAgICAgICAgICAgICAgICAgICAg ICAgICAgICAgICAgICAgICAgICAgICAgICAgICAgICAgICAgICAgICAgICAgICAgICAgICAgICAgICAg TT0SGGGzNJIxVWJcBZXkVWHsQESlMSFgPJJaESSkVJVjSUBdJUGiVTLvWLHrNHNvKBFyFTXfJWXgLVGb ICAgICAgICAgICAgICAgICAgICAgICAgICAgICAgIC SbURQhORIoQYSoRG0WZGLnMYIsAHUjTZEhXQQzGFFcUJFqOGHePAJbTWDhLCJkBBGrPCZvGKEqFGCkKI BwOFZvCGDvFPZmYDJsNAPeIJDzLIBdHVRcSIDqSUQzZPQrJWQwZLTiZJKhFQQgIWUdJAAhJN3HGXKlSN AgICAgICAgICAgICAgICAgICAgICAgICAgICAgICAg ICAgICAgICAgICAgICAgICAgICAgICAgICAgICAgICAgICAgICAgICAgICAgICAgICAgICAgICAgICAg DORxLB7UOULjMLJgPYYvNJLqEJWdGHOnNBJxFNMoDEFtPPAxXBTaTCCtQSOrMFGpSBZhQUUtPCQjBZFk ICAgICAgICAgICAgICAgICAgICAgICAgICAgICAgIC LtQOFoXWXiFUBoVSGiOW1EEBZvRCApVPAwOEVnGUUcXZZvECCmBCTpBSEnNTLdZSHtJSWnADZlLPCvDJ FyDPHkWYBpAJFzDQOwSWWgSZPsBTAoRDEsMQGdZBSwVDIqLBPsKADtNHQlCSDwGXPvRDTzBFFxTS5PVE AgICAgICAgICAgICAgICAgICAgICAgICAgICAgICAg ICAgICAgICAgICAgICAgICAgICAgICAgICAgICAgICAgICAgICAgICAgICAgICAgICAgICAgICAgICAg XYEsHZHvHX4MJYPlZJLdLBGjAIBdXJReMFYeUMXwHEMrORVcWNLwCMGmLTJdINZsDONvHUGwUANpVDDv ICAgICAgICAgICAgICAgICAgICAgICAgICAgICAgIC UqAXFtSDEsJPBdAYShPRCrSM8JJD54zYRvf1X5AFOdBE2vbdf/Uh0KTXissbObwBGrYA5CEmOdZI6ouk 0XIyOuAR8mck6ETNwQIjOoQ6Q3zFPeBRLiFDWYIfBgB37sKFhwSd98QUopXAYxTaHtMGz5Ly8ZPhQhE5 wwUUNqSoL4ECDnOzXfHLjgKG9Zi6FiqNBmEBn+Pg0K ZY2xj6GfYAotSwHiPG2uvt1DMPsJGbPnJ9G0lZGtO3E6KRogQv0KVJUjGEAlTKTmBOUHHXioDZ5STA8x ryO9UR9BeESnTRLpTWSayEOlCNc7L32zgCQpYRgcOH1BCRS+Faby+Hu6QQASySUQiXASgVhZuMRQZZpYj A69rlKHbVWZdKJJ9TXJyMp4PCJRfC5LwvvKbfDgclw SvYLDjZJBLLD0AMWlettCgdLSqeZrbXN42qEevYP3MBa4QEtFqFL2vjj0SzKJrBx1OBHPgCk6HDTKkNK YhMSGsRKR4EOTcVzHmUYafGPKxFIJgMXX3TMWoLHBdXJ6SWmRzYASvSBQ0IrIpNJAlBZElvj2SRWJpPL GcATD8TgThDUEwJVBaQOhsDLOgKTOjKZkaRHSiWAAm FO0LZsQuTVHdVYKdUVBqGPTaESPttu1LYYQsPQTmVpAfQlOqPIEnFBDrMOciLHVcWWVaJTa9VYLnUPDb DM0UKtRzNCJwROEmYdGeEQLlPMOhcm1ZFDRvNNUbCtP9LiYvSCKaRJHkWBezEMYtRQC9FZWsORZtUXZi KW7HYcUgPOFsESK9OHPcFSSjCPPtqe2DYBCbQWNzRY r5MXGqHQEwSHXdOXnrLUOnSBYzCIjmQDBeTLCbMA0EZpNoGTYyYWV4BHmaZGAkEIChjs5PAJZqVHWjGM NiVeEsHFWuLKKaRYckXRYuBMD0XOZvZRDzYYSpRW6XZeGiHNdvPKVDXem3JKodX7n8CBNsUu0AE3Pmm4 LwBJRqZXAOAIgfIG7qtiNoFMVpDp6KP7nSVgg1BBJg LkFkMTZ8Zep1LqZlHlNyIctqIScyGLBxYOMvMf8jWEIvSHD2YoH6AIU0YYk7OaPxCzQ8DED9IEApGjD1 JNF1IiTfOR7KCg1XLbR6ZLR3sYIyRd4DTCH3HHoFXsAgHG2JLBa= ID Date Data Source [id number] 07/25/2019 01:17:30 PM EDT [facility]: Courtney TidwellB: 1955Provider: Stew Reynolds: 07/18/2019 Assessment 1. Left knee pain (719.46) (M25.562) Plan Start: methylPREDNISolone 4 MG Oral Tablet Therapy Pack; : Using pack 1 and pack 2 -6 tabs for 2 days ,5 tabs for 2 days , 4 tabs for 2 days ,3 tabsx 2 days , 2 tabs for 2 days , 1 tab for 2 Rx By: Roberta Reynolds; Dispense: 0 Days ; #:2 X 21 Tablet Pack; Refill: 0;For: Pain in both knees; RAF = N; Verified Transmission to [employer] [facility]; Last Updated By: Yovani Gaona; 07/18/2019 10:52:18 AM X-Ray I Hip-Uni Pelvis - 2 or 3 views (XRays were ordered, obtained and interpretedtoday in the office. Indication: pain/dysfunction.); Status:Complete; Done: 18Jul2019 Perform:SOS14 (General); Due:01Aug2019; Last Updated By:Maximiliano Chauhan; 07/18/2019 10:29:19 AM;Ordered; For:Lower back pain; Ordered By:Roberta Reynolds;Weight Bearing Status : Weight bearingLaterality: : Left X-Ray I Knee - 3 views (XRays were ordered, obtained and interpreted today in theoffice. Indication: pain/dysfunction.); Status:Complete; Done: 18Jul2019 Perform:SOS14 (General); Due:01Aug2019; Last Updated By:Maximiliano Chauhan; 07/18/2019 9:56:34 AM;Ordered; For:Pain in both knees; Ordered By:Roberta Reynolds;Weight Bearing Status : Weight bearingLaterality: : Bilateral X-Ray I Lumbosacral - 2 views (XRays were ordered, obtained and interpreted today inthe office. Indication: pain/dysfunction.); Status:Complete; Done: 18Jul2019 Perform:SOS14 (General); Due:01Aug2019; Last Updated By:Maximiliano Chauhan; 07/18/2019 10:29:21 AM;Ordered; For:Lower back pain; Ordered By:Roberta Reynolds; Assessment: Left leg pain. I did Courtney's knees 12 years ago. She has does fine with them but in the last month she has developed some popping around the knee and then a week ago started to develop some pain. She describes it in the knee but actually points to the groin, the almeida and the knee as the location of the pain. Not so long ago she had a blood clot. Is now on Eliquis. She has some cardiac issues. I examined her today. I really could not find anything clearly wrong with the knee. There is no sign of infection, thrombosis or RSD today. Wound benign. HIp was irritable to move. Xrays of the lumbar spine 2 views, 3 views of both knees and pelvis and left hip 2 views, ordered, interpreted and taken today show mild arthritis in the left hip. Lumbar spine shows significant spondylolisthesis. Left knee Xray look good as do the right knee. Plan: I do not know what her problem is. I need to investigate further. I am going to generically put her on a double Depo Medrol Dosepak. She has already been to the ER and got oxycodone which does not help. She cannot take non steroidals because she is on Eliquis. I will do a bone scan to evaluate her left leg and also inject the left hip with cortisone to see if we can get a positive diagnostic response. I may end up having to do an MRI of the leg and the back, if the diagnosis does not become clear. Signatures Electronically signed by : Migdalia Trujillo, ; Jul 22 2019 2:29PM EST Electronically signed by : Roberta Reynolds M.D.; Jul 25 2019 1:17PM EST (Author) Name Value Range Interpretation Code Description Data Amanda rce(s) Supporting Document(s) ID Date Data Source [id number] 07/16/2019 08:00:00 AM EST [facility] ([facility]) Name Value Range Interpretation Code Description Data Amanda rce(s) Supporting Document(s) Ketones [Presence] in Urine by Test strip Laboratory test result [facility] ([facility]) ID Date Data Source [id number] 07/16/2019 08:00:00 AM EST [facility] ([facility]) Name Value Range Interpretation Code Description Data Amanda rce(s) Supporting Document(s) Urobilinogen [Presence] in Urine by Test strip [facility] ID Date Data Source [id number] 07/16/2019 08:00:00 AM EST [facility] ([facility]) Name Value Range Interpretation Code Description Data Amanda rce(s) Supporting Document(s) Glucose [Mass/volume] in Urine by Test strip [facility] ID Date Data Source [id number] 07/16/2019 08:00:00 AM EST [facility] ([facility]) Name Value Range Interpretation Code Description Data Amanda rce(s) Supporting Document(s) Bilirubin.total [Presence] in Urine by Test strip Laboratory test res ult [facility] ([facility]) ID Date Data Source [id number] 07/16/2019 08:00:00 AM EST [facility] ([facility] ) Name Value Range Interpretation Code Description Data Amanda rce(s) Supporting Document(s) Nitrite [Presence] in Urine by Test strip Laboratory test result [facility] ([facility] ) ID Date Data Source [id number] 07/16/2019 08:00:00 AM EST [facility] ([facility] ) Name Value Range Interpretation Code Description Data Amanda rce(s) Supporting Document(s) Leukocyte esterase [Presence] in Urine by Test strip Laboratory kerry t result [facility] ([facility] ) ID Date Data Source [id number] 07/16/2019 08:00:00 AM EST [facility] ([facility] ) Name Value Range Interpretation Code Description Data Amanda rce(s) Supporting Document(s) Protein [Mass/volume] in Urine by Test strip Laboratory test result [facility] ([facility] ) ID Date Data Source [id number] 07/16/2019 08:00:00 AM EST [facility] ([facility] ) Name Value Range Interpretation Code Description Data Amanda rce(s) Supporting Document(s) Specific gravity of Urine by Test strip 1.020 1.002-1.035 [facility] ([facility] ) ID Date Data Source [id number] 07/16/2019 08:00:00 AM EST [facility] ([facility] ) Name Value Range Interpretation Code Description Data Amanda rce(s) Supporting Document(s) pH of Urine by Test strip 6.0 5.0-7.0 [facility] ([facility] ) ID Date Data Source [id number] 07/16/2019 08:00:00 AM EST [facility] ([facility] ) Name Value Range Interpretation Code Description Data Amanda rce(s) Supporting Document(s) Color of Urine Laboratory test result [facility] ([facility] ) ID Date Data Source [id number] 07/16/2019 08:00:00 AM EST [facility] ([facility] ) Name Value Range Interpretation Code Description Data Amanda rce(s) Supporting Document(s) Appearance of Urine Laboratory test result [facility] ([facility] ) ID Date Data Source [id number] 07/16/2019 08:00:00 AM EST [facility] ([facility]) Name Value Range Interpretation Code Description Data Amanda rce(s) Supporting Document(s) Hemoglobin [Presence] in Urine by Test strip Laboratory test result [facility] ([facility]) ID Date Data Source [id number] 07/16/2019 08:00:00 AM EST [facility] ([facility]) Name Value Range Interpretation Code Description Data Amanda rce(s) Supporting Document(s) Leukocytes [#/area] in Urine sediment by Microscopy hi gh power field Laboratory test result 0-3 [facility]) ID Date Data Source [id number] 07/16/2019 08:00:00 AM EST [facility] ([facility]) Name Value Range Interpretation Code Description Data Amanda rce(s) Supporting Document(s) Erythrocytes [#/area] in Urine sediment by Microscopy high power field Laboratory test result 0-3 [facility]) ID Date Data Source [id number] 07/16/2019 08:00:00 AM EST [facility] ([facility]) Name Value Range Interpretation Code Description Data Amanda rce(s) Supporting Document(s) Epithelial cells.squamous [Presence] in Urine sediment by Light microscopy Laboratory test result [facility]) ID Date Data Source [id number] 07/16/2019 08:00:00 AM EST [facility] ([facility]) Name Value Range Interpretation Code Description Data Amanda rce(s) Supporting Document(s) Calcium oxalate crystals [Presence] in Urine sediment by Light microscopy Laboratory test result [facility] ([facility]) ID Date Data Source [id number] 07/16/2019 08:00:00 AM EST [facility] [facility] Name Value Range Interpretation Code Description Data Amanda rce(s) Supporting Document(s) Bacteria [Presence] in Urine sediment by Light microsc opy Laboratory test result [facility] ([facility]) ID Date Data Source [id number] 07/16/2019 08:00:00 AM EST [facility] ([facility]) Name Value Range Interpretation Code Description Data Amanda rce(s) Supporting Document(s) Hyaline casts [Presence] in Urine sediment by Light mi croscopy Laboratory test result 0-1 [facility] ([facility]) ID Date Data Source [id number] 07/16/2019 08:00:00 AM EST [facility] ([facility] Name Value Range Interpretation Code Description Data Amanda rce(s) Supporting Document(s) Mucus [Presence] in Urine sediment by Light microscopy Laborator y test result [facility] ([facility] ID Date Data Source [id number] 07/16/2019 08:00:00 AM EST [facility] ([facility] Name Value Range Interpretation Code Description Data Amanda rce(s) Supporting Document(s) Urine Sediment Examination Laboratory test result [facility] ([facility] ID Date Data Source [id number] 07/09/2019 06:28:00 PM EST [facility] ([facility] ) Name Value Range Interpretation Code Description Data Amanda rce(s) Supporting Document(s) Urine Appearance Laboratory test result [facility] ([facility] ) Urine Color Laboratory test result MEDEN T ([facility] ) pH of Urine 5.0 5.0-9.0 [facility] ([facility] ) Urine Specific [place] 1.050 1.002-1.035 M EDENT ([facility] ) Urine Protein Laboratory test result [facility] ([facility] ) Urine Glucose (Ua) Laboratory test result [facility] ([facility] ) Urine Ketones Laboratory test result [facility] ([facility] ) Urine Bilirubin Laboratory test result [facility] ([facility] ) Urine Urobilinogen 0.2 0.0-2.0 [facility] ([facility] ) Urine Leukocyte Esterase Laboratory test result [facility] ([facility] ) Urine Nitrite Laboratory test result [facility] ([facility] ) Urine Blood Laboratory test result MEDEN T ([facility] ) Urine WBC (Auto) 12 0-3 [facility] ([facility] Urine RBC (Auto) 14 0-3 [facility] ([facility] ) Urine Bacteria (Auto) Laboratory test result [facility] ([facility] ) Urine Squamous Epithelial Cells 16 0-6 [facility] ([facility] ) Urine Mucus (Auto) Laboratory test result [facility] ([facility] ) Urine Hyaline Casts (Auto) 0 0-1 [facility] ([facility] ) Amorphous sediment [Presence] in Urine sediment by Lig ht microscopy Laboratory test result [facility] ([facility]) ID Date Data Source [id number] 07/09/2019 03:15:00 PM EST [facility] ([facility]) Name Value Range Interpretation Code Description Data Amanda rce(s) Supporting Document(s) Hematocrit [Volume Fraction] of Blood 46.0 38.0-51.0 [facility] ([facility]) ID Date Data Source [id number] 07/09/2019 03:15:00 PM EST [facility] ([facility]) Name Value Range Interpretation Code Description Data Amanda rce(s) Supporting Document(s) Glucose [Mass/volume] in Blood 97 70-105 [facility] ([facility]) ID Date Data Source [id number] 07/09/2019 03:15:00 PM EST [facility] ([facility]) Name Value Range Interpretation Code Description Data Amanda rce(s) Supporting Document(s) Sodium [Moles/volume] in Blood 138 136-145 [facility] ([facility]) ID Date Data Source [id number] 07/09/2019 03:15:00 PM EST [facility] ([facility]) Name Value Range Interpretation Code Description Data Amanda rce(s) Supporting Document(s) Potassium [Moles/volume] in Blood 4.7 3.5-5.1 [facility] ([facility]) ID Date Data Source [id number] 07/09/2019 03:15:00 PM EST [facility] ([facility]) Name Value Range Interpretation Code Description Data Amanda rce(s) Supporting Document(s) Calcium.ionized [Moles/volume] in Blood 4.3 4.5-5.3 [facility] ([facility]) ID Date Data Source [id number] 07/09/2019 03:15:00 PM EST [facility] ([facility]) Name Value Range Interpretation Code Description Data Amanda rce(s) Supporting Document(s) Chloride [Moles/volume] in Blood 106 98-109 [facility] ([facility]) ID Date Data Source [id number] 07/09/2019 03:15:00 PM EST [facility] ([facility]) Name Value Range Interpretation Code Description Data Amanda rce(s) Supporting Document(s) Carbon dioxide, total [Moles/volume] in Blood 27.0 23.0-27.0 [facility] ([facility]) ID Date Data Source [id number] 07/09/2019 03:15:00 PM EST [facility] ([facility]) Name Value Range Interpretation Code Description Data Amanda rce(s) Supporting Document(s) Urea nitrogen [Mass/volume] in Blood 26 8-26 [facility] ([facility]) ID Date Data Source [id number] 07/09/2019 03:15:00 PM EST [facility] ([facility]) Name Value Range Interpretation Code Description Data Amanda rce(s) Supporting Document(s) Creatinine [Mass/volume] in Blood 0.8 0.6-1.3 [facility] ([facility]) ID Date Data Source [id number] 07/09/2019 03:10:00 PM EST [facility] ([facility]) Name Value Range Interpretation Code Description Data Amanda rce(s) Supporting Document(s) Erythrocyte sedimentation rate by Westergren method 3 0-30 [facility] ([facility]) ID Date Data Source [id number] 07/09/2019 03:10:00 PM EST [facility] ([facility]) Name Value Range Interpretation Code Description Data Amanda rce(s) Supporting Document(s) Prothrombin time (PT) 13.0 11.8-14.0 [facility] ( [facility]) ID Date Data Source [id number] 07/09/2019 03:10:00 PM EST [facility] ([facility]) Name Value Range Interpretation Code Description Data Amanda rce(s) Supporting Document(s) INR in Platelet poor plasma by Coagulation assay 1.01 [facility] ([facility]) ID Date Data Source [id number] 07/09/2019 03:10:00 PM EST [facility] ([facility]) Name Value Range Interpretation Code Description Data Amanda rce(s) Supporting Document(s) aPTT in Blood by Coagulation assay 26.4 25.0-38.4 [facility] ([facility]) ID Date Data Source [id number] 07/09/2019 03:10:00 PM EST [facility] ([facility]) Name Value Range Interpretation Code Description Data Amanda rce(s) Supporting Document(s) Aspartate aminotransferase [Enzymatic activity/volume] in Se rum or Plasma 15 7-37 [facility] ([facility]) ID Date Data Source [id number] 07/09/2019 03:10:00 PM EST [facility] ([facility]) Name Value Range Interpretation Code Description Data Amanda rce(s) Supporting Document(s) Alanine aminotransferase [Enzymatic activity/volume] in Seru m or Plasma 19 12-78 [facility] ([facility]) ID Date Data Source [id number] 07/09/2019 03:10:00 PM EST [facility] ([facility]) Name Value Range Interpretation Code Description Data Amanda rce(s) Supporting Document(s) Creatine kinase [Enzymatic activity/volume] in Serum or Plasma 90 26-192 [facility] ([facility]) ID Date Data Source [id number] 07/09/2019 03:10:00 PM EST [facility] ([facility]) Name Value Range Interpretation Code Description Data Amanda rce(s) Supporting Document(s) Creatine kinase.MB [Mass/volume] in Serum or Plasma 1.9 [facility] ([facility]) ID Date Data Source [id number] 07/09/2019 03:10:00 PM EST [facility] ([facility]) Name Value Range Interpretation Code Description Data Amanda rce(s) Supporting Document(s) Creatine kinase.MB/Creatine kinase.total [Pure catalytic fraction] in Serum or Plasma by calculation 2.11 [facility] ([facility]) ID Date Data Source [id number] 07/09/2019 03:10:00 PM EST [facility] ([facility]) Name Value Range Interpretation Code Description Data Amanda rce(s) Supporting Document(s) Alkaline phosphatase [Enzymatic activity/volume] in Serum or Marlene sma 136 45-117 [facility] ([facility]) ID Date Data Source [id number] 07/09/2019 03:10:00 PM EST [facility] ([facility]) Name Value Range Interpretation Code Description Data Amanda rce(s) Supporting Document(s) Bilirubin.total [Mass/volume] in Serum or Plasma 0.3 0.2-1.0 [facility] ([facility]) ID Date Data Source [id number] 07/09/2019 03:10:00 PM EST [facility] ([facility]) Name Value Range Interpretation Code Description Data Amanda rce(s) Supporting Document(s) Bilirubin.direct [Mass/volume] in Serum or Plasma 0.1 0.0-0.2 [facility] ([facility]) ID Date Data Source [id number] 07/09/2019 03:10:00 PM EST [facility] ([facility]) Name Value Range Interpretation Code Description Data Amanda rce(s) Supporting Document(s) Protein [Mass/volume] in Serum or Plasma 7.5 6.4-8.2 [facility] ([facility]) ID Date Data Source [id number] 07/09/2019 03:10:00 PM EST [facility] ([facility]) Name Value Range Interpretation Code Description Data Amanda rce(s) Supporting Document(s) Albumin [Mass/volume] in Serum or Plasma 3.9 3.2-5.2 [facility] ([facility]) ID Date Data Source [id number] 07/09/2019 03:10:00 PM EST [facility] ([facility]) Name Value Range Interpretation Code Description Data Amanda rce(s) Supporting Document(s) Albumin/Globulin [Mass Ratio] in Serum or Plasma 1.08 1.00-1.93 [facility] ([facility]) ID Date Data Source [id number] 07/09/2019 03:10:00 PM EST [facility] ([facility]) Name Value Range Interpretation Code Description Data Amanda rce(s) Supporting Document(s) Troponin I.cardiac [Mass/volume] in Serum or Plasma Laboratory test result [facility] ([facility]) ID Date Data Source [id number] 07/09/2019 03:10:00 PM EST [facility] ([facility]) Name Value Range Interpretation Code Description Data Amanda rce(s) Supporting Document(s) Natriuretic peptide.B prohormone N-Terminal [Mass/volu me] in Serum or Plasma 242 [facility] ([facility]) ID Date Data Source [id number] 07/09/2019 03:10:00 PM EST [facility] ([facility]) Name Value Range Interpretation Code Description Data Amanda rce(s) Supporting Document(s) C reactive protein [Mass/volume] in Serum or Plasma by High sensitivity method 0.99 0.00-0.30 [facility] ([facility]) ID Date Data Source VITAMIN [id number] 05/14/2019 12:00:00 AM EST eCW1 ([facility]) Name Value Range Interpretation Code Description Data Amanda rce(s) Supporting Document(s) 31.4 30.0-100.0 TOTAL 25(OH) VITAMIN D eC W1 ([facility]) ID Date Data Source VITAMIN B12 LEVEL 05/14/2019 12:00:00 AM EST eCW1 ([facility]) Name Value Range Interpretation Code Description Data Amanda rce(s) Supporting Document(s) [id number] VITAMIN B12 LEVEL eCW1 ([facility]) ID Date Data Source RBC FOLATE PROFILE 05/14/2019 12:00:00 AM EST eCW1 ([facility]) Name Value Range Interpretation Code Description Data Amanda rce(s) Supporting Document(s) 46.6 36.0-47.0 HEMATOCRIT eCW1 ([facility]) ID Date Data Source TOTAL IRON BINDING CAPACIT 05/14/2019 12:00:00 AM EST eCW1 ( [facility]) Name Value Range Interpretation Code Description Data Amanda rce(s) Supporting Document(s) 63 50-170 IRON (FE) eCW1 ([facility]) 19.2 13.2-45.0 PERCENT SATURATION eCW1 ([facility]) 328 250-450 TOTAL IRON BINDING CAPACI TY eCW1 ([facility]) ID Date Data Source [id number] 05/14/2019 12:00:00 AM EST eCW1 ([facility]) Name Value Range Interpretation Code Description Data Amanda rce(s) Supporting Document(s) Hemoglobin A1c/Hemoglobin.total in Blood 6.0 HEMOGLOBIN A1c eCW1 ([facility]) ID Date Data Source PHOSPHOROUS LEVEL 05/14/2019 12:00:00 AM EST eCW1 ([facility]) Name Value Range Interpretation Code Description Data Amanda rce(s) Supporting Document(s) 2.8 2.5-4.9 PHOSPHORUS LEVEL eCW1 ([facility]) ID Date Data Source MAGNESIUM LEVEL 05/14/2019 12:00:00 AM EST eCW1 ([facility]) Name Value Range Interpretation Code Description Data Amanda rce(s) Supporting Document(s) 2.4 1.8-2.4 MAGNESIUM LEVEL W1 ([facility]) ID Date Data Source FREE T4 & TSH PANEL 05/14/2019 12:00:00 AM EST eCW1 ([facility]) Name Value Range Interpretation Code Description Data Amanda rce(s) Supporting Document(s) 1.09 0.76-1.46 FREE T4 eCW1 ([facility]) 0.842 0.358-3.740 THYROID STIMULATING HORM ONE eCW1 ([facility]) ID Date Data Source FERRITIN 05/14/2019 12:00:00 AM EST eCW1 ([facility]) Name Value Range Interpretation Code Description Data Amanda rce(s) Supporting Document(s) 41 0-967 FERRITIN eCW1 ([facility]) ID Date Data Source Comprehensive Metabolic Profile (CMP) 05/14/2019 12:00:00 AM EST eCW1 ([facility]) Name Value Range Interpretation Code Description Data Amanda rce(s) Supporting Document(s) 14 7-18 BLOOD UREA NITROGEN eCW1 ([facility]) > 60.0 >45 GLOMERULAR FILTRATION RATE eCW 1 ([facility]) 104 70-100 GLUCOSE, FASTING eCW1 ([facility]) 0.94 0.55-1.30 CREATININE FOR GFR eCW1 ([facility]) 31 21-32 CARBON DIOXIDE LEVEL eCW1 ([facility]) 4.6 3.5-5.1 POTASSIUM SERUM eCW1 ([facility]) 141 136-145 SODIUM LEVEL eCW1 ([facility]) 105 98-107 CHLORIDE LEVEL eCW1 ([facility]) 9.2 8.8-10.2 CALCIUM LEVEL eCW1 ([facility]) 27 12-78 ALT/SGPT eCW1 ([facility] hospital) 136 45-117 ALKALINE PHOSPHATASE eCW1 ([facility]) 0.5 0.2-1.0 BILIRUBIN,TOTAL eCW1 ([facility]) 17 7-37 AST/SGOT eCW1 ([facility] hospital) 7.1 6.4-8.2 TOTAL PROTEIN eCW1 ([facility]) 3.5 3.2-5.2 ALBUMIN eCW1 (Critical access hospital) 0.97 1.00-1.93 ALBUMIN/GLOBULIN RATIO eCW1 ([facility]) ID Date Data Source CBC with Differential 05/14/2019 12:00:00 AM EST eCW1 ([facility]) Name Value Range Interpretation Code Description Data Amanda rce(s) Supporting Document(s) 7.4 4.0-10.0 WHITE BLOOD COUNT eCW1 ([facility]) 4.86 4.00-5.40 RED BLOOD COUNT eCW1 ([facility]) 46.6 36.0-47.0 HEMATOCRIT eCW1 ([facility]) 14.1 12.0-15.5 HEMOGLOBIN eCW1 ([facility]) 13.2 11.5-14.5 RED CELL DISTRIBUTION WID TH eCW1 ([facility]) 95.9 80.0-96.0 MEAN CORPUSCULAR VOLUME e CW1 ([facility]) 30.3 32.0-36.5 MEAN CORPUSCULAR HGB CONC eCW1 ([facility]) 29.0 27.0-33.0 MEAN CORPUSCULAR HEMOGLOB IN eCW1 ([facility]) 3.2 0.0-3.0 EOS % eCW1 ([facility]) 68.9 36.0-66.0 NEUTROPHILS % eCW1 ([facility]) 188 150-450 PLATELET COUNT, AUTOMATED eCW1 ([facility]) 17.2 24.0-44.0 LYMPH % eCW1 (Critical access hospital) 9.9 0.0-5.0 MONO % eCW1 ([facility] hospital) 1.3 1.5-5.0 LYMPH # eCW1 (Critical access hospital) 0.7 0.0-0.8 MONO # eCW1 (Critical access hospital) 5.1 1.5-8.5 NEUTROPHILS # eCW1 ([facility]) 0.4 0.0-1.0 BASO % eCW1 ([facility]) 0.2 0.0-0.5 EOS # eCW1 ([facility]) 0.0 0.0-0.2 BASO # eCW1 ([facility]) Procedure Social History Code Duration Value Status Description Data Source(s ) Smoking 06/11/2020 12:00:00 AM EST Never Smoker completed Never S moker eCW1 ([facility]) Smoking 06/11/2020 12:00:00 AM EST Never Smoker completed Never S moker eCW1 ([facility]) Smoking 06/11/2020 12:00:00 AM EST Never Smoker completed Never S moker eCW1 ([facility]) Smoking 06/11/2020 12:00:00 AM EST Never Smoker completed Never S moker eCW1 ([facility]) Smoking 06/11/2020 12:00:00 AM EST Never Smoker completed Never S moker eCW1 ([facility]) Smoking 05/27/2020 12:00:00 AM EST Never Smoker completed Never S moker eCW1 ([facility]) Smoking 05/27/2020 12:00:00 AM EST Never Smoker completed Never S moker eCW1 ([facility]) Smoking 05/27/2020 12:00:00 AM EST Never Smoker completed Never S moker eCW1 ([facility]) Smoking 05/27/2020 12:00:00 AM EST Never Smoker completed Never S moker eCW1 ([facility]) Smoking 05/26/2020 12:00:00 AM EST Never Smoker completed Never S moker eCW1 ([facility]) Smoking 05/26/2020 12:00:00 AM EST Never Smoker completed Never S moker eCW1 ([facility]) Smoking 05/22/2020 12:00:00 AM EST Never Smoker completed Never S moker eCW1 ([facility]) Smoking 05/21/2020 12:00:00 AM EST Never Smoker completed Never S moker eCW1 ([facility]) Smoking 04/08/2020 12:00:00 AM EST Never Smoker completed Never S moker eCW1 ([facility]) Smoking 04/08/2020 12:00:00 AM EST Never Smoker completed Never S moker eCW1 ([facility]) Smoking 04/08/2020 12:00:00 AM EST Never Smoker completed Never S moker eCW1 ([facility]) Smoking 04/08/2020 12:00:00 AM EST Never Smoker completed Never S moker eCW1 ([facility]) Smoking 04/08/2020 12:00:00 AM EST Never Smoker completed Never S moker eCW1 ([facility]) Smoking 04/08/2020 12:00:00 AM EST Never Smoker completed Never S moker eCW1 ([facility]) Smoking 04/08/2020 12:00:00 AM EST Never Smoker completed Never S moker eCW1 ([facility]) Alcohol intake 03/31/2020 12:00:00 AM EST Current non-d woody of alcohol (finding) completed Current non-drinker of alcohol (finding) [facility] Tobacco use and exposure 03/31/2020 12:00:00 AM EST Never used co mpleted Never used [facility] Smoking 03/31/2020 12:00:00 AM EST Never smoker completed Never s [facility] Smoking 03/23/2020 12:00:00 AM EST Never Smoker completed Never S moker eCW1 ([facility]) Smoking 03/23/2020 12:00:00 AM EST Never Smoker completed Never S moker eCW1 ([facility]) Smoking 03/23/2020 12:00:00 AM EST Never Smoker completed Never S moker eCW1 ([facility]) Smoking 03/20/2020 12:00:00 AM EST Never Smoker completed Never S moker eCW1 ([facility]) Smoking 03/09/2020 12:00:00 AM EDT Never Smoker completed Never S moker eCW1 ([facility]) Smoking 03/09/2020 12:00:00 AM EDT Never Smoker completed Never S moker eCW1 ([facility]) Smoking 02/28/2020 12:00:00 AM EDT Never Smoker completed Never S moker eCW1 ([facility]) Alcohol intake 2019 12:00:00 AM EDT Current non-d woody of alcohol (finding) completed Current non-drinker of alcohol (finding) [facility] Smoking 2019 12:00:00 AM EDT Never smoker completed Never s [facility] Smoking 11/08/2019 12:00:00 AM EDT Never Smoker completed Never S moker eCW1 ([facility]) Smoking 11/08/2019 12:00:00 AM EDT Never Smoker completed Never S moker eCW1 ([facility]) Smoking 11/08/2019 12:00:00 AM EDT Never Smoker completed Never S moker eCW1 ([facility]) Smoking 11/08/2019 12:00:00 AM EDT Never Smoker completed Never S moker eCW1 ([facility]) Smoking 11/08/2019 12:00:00 AM EDT Never Smoker completed Never S moker eCW1 ([facility]) Smoking 10/08/2019 12:00:00 AM EDT Never Smoker completed Never S moker eCW1 ([facility]) Smoking 10/08/2019 12:00:00 AM EDT Never Smoker completed Never S moker eCW1 ([facility]) Vital Signs ID Date Data Source UNK Name Value Range Interpretation Code Description Data Source(s) Diastolic blood pressure 70 mm[Hg] 70 mm[Hg] eCW1 ([facility]) Systolic blood pressure 130 mm[Hg] 130 mm[Hg] e CW1 ([facility]) Body temperature 96 [degF] 96 [degF] eCW1 ([facility]) Respiratory rate 20 /min 20 /min eCW1 ([facility]) Heart rate 94 /min 94 /min eCW1 ([facility]) Body mass index (BMI) [Ratio] 69.51 kg/m2 69.51 kg/m2 eCW1 ([facility]) Body height 64 [in_i] 64 [in_i] eCW1 ([facility]) Body weight 405 [lb_av] 405 [lb_av] eCW1 ([facility]) Diastolic blood pressure 70 mm[Hg] 70 mm[Hg] eCW1 ([facility]) Systolic blood pressure 127 mm[Hg] 127 mm[Hg] e CW1 ([facility]) Body temperature 97.4 [degF] 97.4 [degF] eCW1 ( [facility]) Respiratory rate 21 /min 21 /min eCW1 ([facility]) Heart rate 66 /min 66 /min eCW1 ([facility]) Body mass index (BMI) [Ratio] 69.20 kg/m2 69.20 kg/m2 eCW1 ([facility]) Body height 64 [in_i] 64 [in_i] eCW1 ([facility]) Body weight 403.2 [lb_av] 403.2 [lb_av] eCW1 ([facility]) Diastolic blood pressure 77 mm[Hg] 77 mm[Hg] eCW1 ([facility]) Systolic blood pressure 178 mm[Hg] 178 mm[Hg] e CW1 ([facility]) Body temperature 99.6 [degF] 99.6 [degF] eCW1 ( [facility]) Respiratory rate 20 /min 20 /min eCW1 ([facility]) Heart rate 75 /min 75 /min eCW1 ([facility]) Body mass index (BMI) [Ratio] 70.40 kg/m2 70.40 kg/m2 eCW1 ([facility]) Body height 64 [in_i] 64 [in_i] eCW1 ([facility]) Body weight 410.2 [lb_av] 410.2 [lb_av] eCW1 ([facility]) Diastolic blood pressure 60 mm[Hg] 60 mm[Hg] eCW1 ([facility]) Systolic blood pressure 122 mm[Hg] 122 mm[Hg] e CW1 ([facility]) Body temperature 98.5 [degF] 98.5 [degF] eCW1 ( [facility]) Respiratory rate 20 /min 20 /min eCW1 ([facility]) Heart rate 57 /min 57 /min eCW1 ([facility]) Body mass index (BMI) [Ratio] 69.85 kg/m2 69.85 kg/m2 eCW1 ([facility]) Body height 64 [in_i] 64 [in_i] eCW1 ([facility]) Body weight 407 [lb_av] 407 [lb_av] eCW1 ([facility]) Diastolic blood pressure 80 mm[Hg] 80 mm[Hg] eCW1 ([facility]) Systolic blood pressure 140 mm[Hg] 140 mm[Hg] e CW1 ([facility]) Body temperature 97 [degF] 97 [degF] eCW1 ([facility]) Respiratory rate 20 /min 20 /min eCW1 ([facility]) Heart rate 71 /min 71 /min eCW1 ([facility]) Body mass index (BMI) [Ratio] 70.20 kg/m2 70.20 kg/m2 eCW1 ([facility]) Body height 64 [in_i] 64 [in_i] eCW1 ([facility]) Body weight 409 [lb_av] 409 [lb_av] eCW1 ([facility]) Diastolic blood pressure 98 mm[Hg] 98 mm[Hg] eCW1 ([facility]) Systolic blood pressure 199 mm[Hg] 199 mm[Hg] e CW1 ([facility]) Body temperature 96.4 [degF] 96.4 [degF] eCW1 ( [facility]) Respiratory rate 20 /min 20 /min eCW1 ([facility]) Heart rate 85 /min 85 /min eCW1 ([facility]) Body mass index (BMI) [Ratio] 68.93 kg/m2 68.93 kg/m2 eCW1 ([facility]) Body height 64 [in_i] 64 [in_i] eCW1 ([facility]) Body weight 401.6 [lb_av] 401.6 [lb_av] eCW1 ([facility]) Diastolic blood pressure 114 mm[Hg] 114 mm[Hg] eCW1 ([facility]) Systolic blood pressure 172 mm[Hg] 172 mm[Hg] e CW1 ([facility]) Body temperature 97.0 [degF] 97.0 [degF] eCW1 ( [facility]) Respiratory rate 20 /min 20 /min eCW1 ([facility]) Heart rate 78 /min 78 /min eCW1 ([facility]) Body mass index (BMI) [Ratio] 69.82 kg/m2 69.82 kg/m2 eCW1 ([facility]) Body height 64 [in_i] 64 [in_i] eCW1 ([facility]) Body weight 406.8 [lb_av] 406.8 [lb_av] eCW1 ([facility]) Diastolic blood pressure 75 mm[Hg] 75 mm[Hg] eCW1 ([facility]) Systolic blood pressure 124 mm[Hg] 124 mm[Hg] e CW1 ([facility]) Body temperature 97.7 [degF] 97.7 [degF] eCW1 ( [facility]) Respiratory rate 20 /min 20 /min eCW1 ([facility]) Heart rate 59 /min 59 /min eCW1 ([facility]) Body mass index (BMI) [Ratio] 69.37 kg/m2 69.37 kg/m2 eCW1 ([facility]) Body height 64 [in_i] 64 [in_i] eCW1 ([facility]) Body weight 404.2 [lb_av] 404.2 [lb_av] eCW1 ([facility]) Diastolic blood pressure 80 mm[Hg] 80 mm[Hg] eCW1 ([facility]) Systolic blood pressure 130 mm[Hg] 130 mm[Hg] e CW1 ([facility]) Body temperature 97.1 [degF] 97.1 [degF] eCW1 ( [facility]) Respiratory rate 20 /min 20 /min eCW1 ([facility]) Heart rate 94 /min 94 /min eCW1 ([facility]) Body mass index (BMI) [Ratio] 69.17 kg/m2 69.17 kg/m2 eCW1 ([facility]) Body height 64 [in_i] 64 [in_i] eCW1 ([facility]) Body weight 403 [lb_av] 403 [lb_av] eCW1 ([facility]) Diastolic blood pressure 82 mm[Hg] 82 mm[Hg] eCW1 ([facility]) Systolic blood pressure 132 mm[Hg] 132 mm[Hg] e CW1 ([facility]) Body temperature 97.1 [degF] 97.1 [degF] eCW1 ( [facility]) Respiratory rate 20 /min 20 /min eCW1 ([facility]) Heart rate 97 /min 97 /min eCW1 ([facility]) Body mass index (BMI) [Ratio] 68.82 kg/m2 68.82 kg/m2 eCW1 ([facility]) Body height 64 [in_i] 64 [in_i] eCW1 ([facility]) Body weight 401 [lb_av] 401 [lb_av] eCW1 ([facility]) Body mass index (BMI) [Ratio] 74.3 kg/m2 74.3 k g/m2 MEDENT ([facility]) Body weight 406.00 [lb_av] 406.00 [lb_av] MEDEN T ([facility]) Body height 62 [in_i] 62 [in_i] MEDENT ([facility]) 5'2" Body mass index (BMI) [Ratio] 69.0 kg/m2 69.0 k g/m2 MEDENT ([facility]) Body weight 390.81 [lb_av] 390.81 [lb_av] MEDEN T ([facility]) Diastolic blood pressure 78 mm[Hg] 78 mm[Hg] eCW1 ([facility]) Systolic blood pressure 132 mm[Hg] 132 mm[Hg] e CW1 ([facility]) Body temperature 97.1 [degF] 97.1 [degF] eCW1 ( [facility]) Respiratory rate 18 /min 18 /min eCW1 ([facility]) Heart rate 94 /min 94 /min eCW1 ([facility]) Body mass index (BMI) [Ratio] 69.17 kg/m2 69.17 kg/m2 eCW1 ([facility]) Body height 64 [in_us] 64 [in_us] eCW1 ([facility]) Body weight Measured 403 [lb_av] 403 [lb_av] eC W1 ([facility]) Diastolic blood pressure 80 mm[Hg] 80 mm[Hg] eCW1 ([facility]) Systolic blood pressure 134 mm[Hg] 134 mm[Hg] e CW1 ([facility]) Body temperature 96.8 [degF] 96.8 [degF] eCW1 ( [facility]) Respiratory rate 20 /min 20 /min eCW1 ([facility]) Heart rate 95 /min 95 /min eCW1 ([facility]) Body mass index (BMI) [Ratio] 67.97 kg/m2 67.97 kg/m2 W1 ([facility]) Body height 64 [in_us] 64 [in_us] eCW1 ([facility]) Body weight Measured 396 [lb_av] 396 [lb_av] eC W1 ([facility]) Diastolic blood pressure 82 mm[Hg] 82 mm[Hg] eCW1 ([facility]) Systolic blood pressure 130 mm[Hg] 130 mm[Hg] e CW1 ([facility]) Body temperature 97 [degF] 97 [degF] eCW1 ([facility]) Respiratory rate 20 /min 20 /min eCW1 ([facility]) Heart rate 90 /min 90 /min eCW1 ([facility]) Body mass index (BMI) [Ratio] 68.31 kg/m2 68.31 kg/m2 eCW1 ([facility]) Body height 64 [in_i] 64 [in_i] eCW1 ([facility]) Body weight 398 [lb_av] 398 [lb_av] eCW1 ([facility]) Diastolic blood pressure 76 mm[Hg] 76 mm[Hg] eCW1 ([facility]) Systolic blood pressure 130 mm[Hg] 130 mm[Hg] e CW1 ([facility]) Body temperature 96.9 [degF] 96.9 [degF] eCW1 ( [facility]) Respiratory rate 20 /min 20 /min eCW1 ([facility]) Heart rate 84 /min 84 /min eCW1 ([facility]) Body mass index (BMI) [Ratio] 66.94 kg/m2 66.94 kg/m2 eCW1 ([facility]) Body height 64 [in_us] 64 [in_us] eCW1 ([facility]) Body weight Measured 390 [lb_av] 390 [lb_av] eC W1 ([facility]) Diastolic blood pressure 99 mm[Hg] 99 mm[Hg] eCW1 ([facility]) Systolic blood pressure 151 mm[Hg] 151 mm[Hg] e CW1 ([facility]) Body temperature 97.2 [degF] 97.2 [degF] eCW1 ( [facility]) Respiratory rate 22 /min 22 /min eCW1 ([facility]) Heart rate 83 /min 83 /min eCW1 ([facility]) Body mass index (BMI) [Ratio] 67.28 kg/m2 67.28 kg/m2 eCW1 ([facility]) Body height 64 [in_us] 64 [in_us] eCW1 ([facility]) Body weight Measured 392 [lb_av] 392 [lb_av] eC W1 ([facility]) Diastolic blood pressure 74 mm[Hg] 74 mm[Hg] eCW1 ([facility]) Systolic blood pressure 120 mm[Hg] 120 mm[Hg] e CW1 ([facility]) Body temperature 96.4 [degF] 96.4 [degF] eCW1 ( [facility]) Respiratory rate 18 /min 18 /min eCW1 ([facility]) Heart rate 88 /min 88 /min eCW1 ([facility]) Body mass index (BMI) [Ratio] 67.11 kg/m2 67.11 kg/m2 eCW1 ([facility]) Body height 64 [in_us] 64 [in_us] eCW1 ([facility]) Body weight Measured 391 [lb_av] 391 [lb_av] eC W1 ([facility]) ID Date Data Source [id number] 06/04/2020 02:04:55 PM [facility] Name Value Range Interpretation Code Description Data Source(s) PREFERRED NAME [facility] ID Date Data Source [id number] 06/23/2020 10:30:53 AM [facility] Name Value Range Interpretation Code Description Data Source(s) PREFERRED NAME [facility] PREFERRED NAME [facility] ID Date Data Source [id number] 04/14/2020 03:36:51 PM [facility] Name Value Range Interpretation Code Description Data Source(s) PREFERRED NAME [facility] ID Date Data Source [id number] 04/14/2020 03:43:34 PM [facility] Name Value Range Interpretation Code Description Data Source(s) PREFERRED NAME [facility] Patient Treatment Plan of Care Planned Activity Planned Date Details Description Data Source (s) 24 HR Oxybutynin chloride 10 MG Extended Release Oral Tablet 06/17/2020 12:00:00 AM EST eCW1 [facility] 24 HR Oxybutynin chloride 10 MG Extended Release Oral Tablet 06/17/2020 12:00:00 AM EST eCW1 ([facility]) 24 HR Oxybutynin chloride 10 MG Extended Release Oral Tablet 06/17/2020 12:00:00 AM EST eCW1 ([facility]) Acetaminophen 300 MG / Codeine Phosphate 60 MG Oral Ta blet 05/13/2020 12:00:00 AM EST eCW1 ([facility]) Acetaminophen 300 MG / Codeine Phosphate 60 MG Oral Ta blet 05/13/2020 12:00:00 AM EST eCW1 ([facility]) Acetaminophen 300 MG / Codeine Phosphate 60 MG Oral Ta blet 05/13/2020 12:00:00 AM EST eCW1 ([facility]) Acetaminophen 300 MG / Codeine Phosphate 60 MG Oral Ta blet 05/13/2020 12:00:00 AM EST eCW1 ([facility]) Acetaminophen 300 MG / Codeine Phosphate 60 MG Oral Ta blet 05/13/2020 12:00:00 AM EST eCW1 ([facility]) Acetaminophen 300 MG / Codeine Phosphate 60 MG Oral Ta blet 05/13/2020 12:00:00 AM EST eCW1 ([facility]) apixaban 2.5 MG Oral Tablet [Eliquis] 05/06/2020 12:00:00 AM EST eCW1 ([facility]) apixaban 2.5 MG Oral Tablet [Eliquis] 05/06/2020 12:00:00 AM EST eCW1 ([facility]) apixaban 2.5 MG Oral Tablet [Eliquis] 05/06/2020 12:00:00 AM EST eCW1 ([facility]) apixaban 2.5 MG Oral Tablet [Eliquis] 05/06/2020 12:00:00 AM EST eCW1 ([facility]) apixaban 2.5 MG Oral Tablet [Eliquis] 05/06/2020 12:00:00 AM EST eCW1 ([facility]) apixaban 2.5 MG Oral Tablet [Eliquis] 05/06/2020 12:00:00 AM EST eCW1 ([facility]) apixaban 2.5 MG Oral Tablet [Eliquis] 05/06/2020 12:00:00 AM EST eCW1 ([facility]) apixaban 2.5 MG Oral Tablet [Eliquis] 05/06/2020 12:00:00 AM EST eCW1 ([facility]) apixaban 2.5 MG Oral Tablet [Eliquis] 05/06/2020 12:00:00 AM EST eCW1 ([facility]) Aimovig 140 MG/ML Subcutaneous Solution Auto-injector 03/11/2020 12:00:00 AM [facility] gabapentin 600 MG Oral Tablet 02/28/2020 12:00:00 AM EDT eCW1 ([facility]) gabapentin 600 MG Oral Tablet 02/28/2020 12:00:00 AM EDT eCW1 ([facility]) gabapentin 600 MG Oral Tablet 02/28/2020 12:00:00 AM EDT eCW1 ([facility]) gabapentin 600 MG Oral Tablet 02/28/2020 12:00:00 AM EDT eCW1 ([facility]) gabapentin 600 MG Oral Tablet 02/28/2020 12:00:00 AM EDT eCW1 ([facility]) gabapentin 600 MG Oral Tablet 02/28/2020 12:00:00 AM EDT eCW1 ([facility]) gabapentin 600 MG Oral Tablet 02/28/2020 12:00:00 AM [facility] gabapentin 600 MG Oral Tablet 02/28/2020 12:00:00 AM EDT eCW1 ([facility]) 24 HR Bupropion Hydrochloride 150 MG Extended Release Oral Tablet [Wellbutrin] 02/28/2020 12:00:00 AM EDT eCW1 ([facility]) Amoxicillin 500 MG Oral Capsule 02/28/2020 12:00:00 AM EDT eCW1 ([facility]) pregabalin 150 MG Oral Capsule [Lyrica] 11/08/2019 12:00:00 AM EDT eCW1 ([facility]) pregabalin 150 MG Oral Capsule [Lyrica] 11/08/2019 12:00:00 AM EDT eCW1 ([facility]) pregabalin 150 MG Oral Capsule [Lyrica] 11/08/2019 12:00:00 AM EDT eCW1 ([facility]) pregabalin 150 MG Oral Capsule [Lyrica] 11/08/2019 12:00:00 AM EDT eCW1 ([facility]) pregabalin 150 MG Oral Capsule [Lyrica] 11/08/2019 12:00:00 AM EDT eCW1 ([facility]) Prednisone 20 MG Oral Tablet 10/31/2019 12:00:00 AM [facility] pregabalin 100 MG Oral Capsule [Lyrica] 10/08/2019 12:00:00 AM EDT eCW1 ([facility]) pregabalin 100 MG Oral Capsule [Lyrica] 10/08/2019 12:00:00 AM EDT eCW1 ([facility]) pregabalin 100 MG Oral Capsule [Lyrica] 10/08/2019 12:00:00 AM EDT eCW1 ([facility]) pregabalin 100 MG Oral Capsule 10/08/2019 12:00:00 AM T [facility] Triamcinolone Acetonide 1 MG/ML Topical Cream 09/09/2019 12:00:00 A M EDT eCW1 ([facility]) pregabalin 75 MG Oral Capsule [Lyrica] 09/09/2019 12:00:00 AM EDT eCW1 ([facility]) Triamcinolone Acetonide 1 MG/ML Topical Cream 09/09/2019 12:00:00 A M EDT eCW1 ([facility]) gabapentin 300 MG Oral Capsule 08/30/2019 12:00:00 AM [facility] methylPREDNISolone 4 MG Oral Tablet Therapy Pack (MEDR OL DOSEPACK) 07/18/2019 12:00:[address] [facility] duloxetine 60 MG Delayed Release Oral Capsule [Cymbalt a] 07/16/2019 12:00:00 AM EST eCW1 ([facility] duloxetine 60 MG Delayed Release Oral Capsule [Cymbalt a] 07/16/2019 12:00:00 AM EST eCW1 ([facility]) duloxetine 60 MG Delayed Release Oral Capsule [Cymbalt a] 07/16/2019 12:00:00 AM EST eCW1 ([facility]) duloxetine 60 MG Delayed Release Oral Capsule [Cymbalt a] 07/16/2019 12:00:00 AM EST eCW1 ([facility]) duloxetine 60 MG Delayed Release Oral Capsule [Cymbalt a] 07/16/2019 12:00:00 AM EST eCW1 ([facility]) duloxetine 60 MG Delayed Release Oral Capsule [Cymbalt a] 07/16/2019 12:00:00 AM EST eCW1 ([facility]) duloxetine 60 MG Delayed Release Oral Capsule [Cymbalt a] 07/16/2019 12:00:00 AM EST eCW1 ([facility]) duloxetine 60 MG Delayed Release Oral Capsule [Cymbalt a] 07/16/2019 12:00:00 AM EST eCW1 ([facility]) duloxetine 60 MG Delayed Release Oral Capsule [Cymbalt a] 07/16/2019 12:00:00 AM EST eCW1 ([facility]) duloxetine 60 MG Delayed Release Oral Capsule [Cymbalt a] 07/16/2019 12:00:00 AM EST eCW1 ([facility]) duloxetine 60 MG Delayed Release Oral Capsule [Cymbalt a] 07/16/2019 12:00:00 AM EST eCW1 ([facility]) duloxetine 60 MG Delayed Release Oral Capsule [Cymbalt a] 07/16/2019 12:00:00 AM EST eCW1 ([facility]) duloxetine 60 MG Delayed Release Oral Capsule [Cymbalt a] 07/16/2019 12:00:00 AM EST eCW1 ([facility]) duloxetine 60 MG Delayed Release Oral Capsule [Cymbalt a] 07/16/2019 12:00:00 AM EST eCW1 ([facility]) duloxetine 60 MG Delayed Release Oral Capsule [Cymbalt a] 07/16/2019 12:00:00 AM EST eCW1 ([facility]) duloxetine 60 MG Delayed Release Oral Capsule [Cymbalt a] 07/16/2019 12:00:00 AM EST eCW1 ([facility]) Phenazopyridine hydrochloride 200 MG Delayed Release O ral Tablet 07/09/2019 12:00:00 AM [facility] Hydrochlorothiazide 12.5 MG / Lisinopril 10 MG Oral Ta blet 06/20/2019 12:00:00 AM [facility] benzonatate 100 MG Oral Capsule [Tessalon Perles] 05/17/2019 12: 00:00 AM EST eCW1 ([facility]) Amoxicillin 500 MG Oral Capsule 03/22/2019 12:00:00 AM [facility] Cholecalciferol 2000 UNT Oral Capsule 01/31/2019 12:00:00 AM [facility] tizanidine 4 MG Oral Tablet 12/14/2018 12:00:00 AM [facility] Naproxen 500 MG Oral Tablet 12/12/2018 12:00:00 AM [facility] 24 HR Bupropion Hydrochloride 300 MG Extended Release Oral Tablet 05/03/2018 12:00:00 AM [facility] Hydrochlorothiazide 12.5 MG Oral Tablet 11/08/2010 12:00:00 AM [facility] potassium citrate 5 MEQ Extended Release Oral Tablet 011 12:00:00 AM [facility] Aspirin 81 MG Delayed Release Oral Tablet [facility] Folic Acid 1 MG Oral Tablet [facility] Acetaminophen 325 MG / Oxycodone Hydrochloride 5 MG Oral Tablet [facility] Tamsulosin hydrochloride 0.4 MG Oral Capsule [facility] clopidogrel 75 MG Oral Tablet [facility] Mupirocin 0.02 MG/MG Topical Ointment [facility] buspirone hydrochloride 30 MG Oral Tablet [facility] Ranitidine 150 MG Oral Tablet [facility]
[2020-06-30] MEDS ORDERED: diphenhydrAMINE 50MG/ML VIAL (J1200) IV ONE (01:45)
[2020-06-30] MEDS ORDERED: MORPHINE 10 MG/ML 1ML VIAL (J2270) IV ONE (01:45)
--- OUTSIDE RECORDS SUMMARY | 2020-06-30 01:54 | CCD ---
Author Author [facility] Organization [facility] Address Unknown Phone Unavailable Care Team Providers Care Teacher Education Director Name Role Phone IRINA VIEYRA MD Unavailable Unavailable IRINA VIEYRA MD Unavailable Unavailable IRINA VIEYRA MD Unavailable Unavailable IRINA VIYERA MD Unavailable Unavailable IRINA VIEYRA MD Unavailable [...] SETTER, Bhavesh ACOSTA MD Unavailable Unavailable SETTER, Bhaevsh ACOSTA MD Unavailable Unavailable SETTER, Bhavesh ACOSTA [...] Unavailable SETTERBhavesh MD Unavailable Unavailable SETTER, Bhavesh ACOTSA MD Unavailable Unavailable SETTER, Bhavesh ACOSTA MD [...] MD Unavailable Unavailable SETTERBhavesh MD Unavailable Unavailable SETTERhBavesh MD Unavailable Unavailable SETTERBhavesh MD Unavailable Unavailable [...] Carlo Oropeza MD Unavailable Unavailable Blanchard, Carlo Oropzea MD Unavailable Unavailable Blanchard, Carlo Oropeza MD Unavailable Unavailable Blanchard, Carlo Oropeza MD Unavailable Unavailable Blanchard, Carlo Oropeza MD Unavailable Unavailable Blanchard, Carlo Oropeza MD Unavailable Unavailable Blanchard, Carlo Oropeza MD Unavailable Unavailable Fons, M Sergio DIRECTOR OF SUPPLY CHAIN Unavailable Unavailable Fons, M Sergio DIRECTOR OF SUPPLY CHAIN Unavailable Unavailable Fons, M Sergio DIRECTOR OF SUPPLY CHAIN Unavailable Unavailable Fons, M Sergio DIRECTOR OF SUPPLY CHAIN Unavailable Unavailable Fons, M Sergio DIRECTOR OF SUPPLY CHAIN Unavailable Unavailable Fons, M Sergio DIRECTOR OF SUPPLY CHAIN Unavailable Unavailable Fons, M Sergio DIRECTOR OF SUPPLY CHAIN Unavailable Unavailable Fons, M Sergio DIRECTOR OF SUPPLY CHAIN Unavailable Unavailable Fons, M Sergio DIRECTOR OF SUPPLY CHAIN Unavailable Unavailable Fons, M Sergio DIRECTOR OF SUPPLY CHAIN Unavailable Unavailable Fons, M Sergio DIRECTOR OF SUPPLY CHAIN Unavailable Unavailable Fons, M Sergio DIRECTOR OF SUPPLY CHAIN Unavailable Unavailable Fons, M Sergio DIRECTOR OF SUPPLY CHAIN Unavailable Unavailable Fons, M Sergio DIRECTOR OF SUPPLY CHAIN Unavailable Unavailable Fons, M Sergio DIRECTOR OF SUPPLY CHAIN Unavailable Unavailable Fons, M Sergio DIRECTOR OF SUPPLY CHAIN Unavailable Unavailable Fons, M Sergio DIRECTOR OF SUPPLY CHAIN Unavailable Unavailable Fons, M Sergio DIRECTOR OF SUPPLY CHAIN Unavailable Unavailable Fons, M Sergio DIRECTOR OF SUPPLY CHAIN Unavailable Unavailable Fons, M Sergio DIRECTOR OF SUPPLY CHAIN Unavailable Unavailable Fons, M Sergio DIRECTOR OF SUPPLY CHAIN Unavailable Unavailable Fons, M Sergio DIRECTOR OF SUPPLY CHAIN Unavailable Unavailable Fons, M Sergio DIRECTOR OF SUPPLY CHAIN Unavailable Unavailable Fons, M Sergio DIRECTOR OF SUPPLY CHAIN Unavailable Unavailable Fons, M Sergio DIRECTOR OF SUPPLY CHAIN Unavailable Unavailable Fons, M Sergio DIRECTOR OF SUPPLY CHAIN Unavailable Unavailable Fons, M Sergio DIRECTOR OF SUPPLY CHAIN Unavailable Unavailable Fons, M Sergio DIRECTOR OF SUPPLY CHAIN Unavailable Unavailable Fons, M Sergio DIRECTOR OF SUPPLY CHAIN Unavailable Unavailable Fons, M Sergio DIRECTOR OF SUPPLY CHAIN Unavailable Unavailable Fons, M Sergoi DIRECTOR OF SUPPLY CHAIN Unavailable Unavailable Fons, M Sergio DIRECTOR OF SUPPLY CHAIN Unavailable Unavailable Fons, M Sergio DIRECTOR OF SUPPLY CHAIN Unavailable Unavailable Fons, M Sergio DIRECTOR OF SUPPLY CHAIN Unavailable Unavailable Fons, M Sergio DIRECTOR OF SUPPLY CHAIN Unavailable Unavailable Fons, M Sergio DIRECTOR OF SUPPLY CHAIN Unavailable Unavailable Fons, M Sergio DIRECTOR OF SUPPLY CHAIN Unavailable Unavailable Fons, M Sergio DIRECTOR OF SUPPLY CHAIN Unavailable Unavailable Fons, M Sergio DIRECTOR OF SUPPLY CHAIN Unavailable Unavailable Fons, M Sergio DIRECTOR OF SUPPLY CHAIN Unavailable Unavailable Fons, M Sergio DIRECTOR OF SUPPLY CHAIN Unavailable Unavailable Fons, M Sergio DIRECTOR OF SUPPLY CHAIN Unavailable Unavailable Fons, M Sergio DIRECTOR OF SUPPLY CHAIN Unavailable Unavailable Fons, M Sergio DIRECTOR OF SUPPLY CHAIN Unavailable Unavailable Fons, M Sergio DIRECTOR OF SUPPLY CHAIN Unavailable Unavailable Fons, M Sergio DIRECTOR OF SUPPLY CHAIN Unavailable Unavailable Fons, M Sergio DIRECTOR OF SUPPLY CHAIN Unavailable Unavailable Fons, M Sergio DIRECTOR OF SUPPLY CHAIN Unavailable Unavailable Fons, M Sergio DIRECTOR OF SUPPLY CHAIN Unavailable Unavailable Fons, M Sergio DIRECTOR OF SUPPLY CHAIN Unavailable Unavailable Fons, M Sergio DIRECTOR OF SUPPLY CHAIN Unavailable Unavailable Fons, M Sergio DIRECTOR OF SUPPLY CHAIN Unavailable Unavailable Fons, M Sergio DIRECTOR OF SUPPLY CHAIN Unavailable Unavailable Fons, M Sergio DIRECTOR OF SUPPLY CHAIN Unavailable Unavailable Fons, M Sergio DIRECTOR OF SUPPLY CHAIN Unavailable Unavailable Barry Chong MD Unavailable Unavailable [...] Skipton, Barry Almaraz MD Unavailable Unavailable Skipton, aBrry Almaraz MD Unavailable Unavailable Skipton, Barry Almaraz MD Unavailable Unavailable Skipton, Barry Almaraz MD Unavailable Unavailable Skipton, Barry Almaraz MD Unavailable Unavailable Skipton, Barry Almaraz MD Unavailable Unavailable Skipton, Barry Almaraz MD Unavailable Unavailable Skipton, Barry Almaraz MD Unavailable Unavailable Skipton, Barry Almaraz MD Unavailable Unavailable Skipton, Barry Almaraz MD Unavailable Unavailable LY, R DAVID CLIMATE CHANGE RISK ASSESSOR Unavailable Unavailable LY, R DAVID CLIMATE CHANGE RISK ASSESSOR Unavailable Unavailable LY, R DAVID CLIMATE CHANGE RISK ASSESSOR Unavailable Unavailable LY, R DAVID CLIMATE CHANGE RISK ASSESSOR Unavailable Unavailable LY, R DAVID CLIMATE CHANGE RISK ASSESSOR Unavailable Unavailable LY, R DAVID CLIMATE CHANGE RISK ASSESSOR Unavailable Unavailable LY, R DAVID CLIMATE CHANGE RISK ASSESSOR Unavailable Unavailable LY, R DAVID CLIMATE CHANGE RISK ASSESSOR Unavailable Unavailable LY, R DAVID CLIMATE CHANGE RISK ASSESSOR Unavailable Unavailable LY, R DAVID CLIMATE CHANGE RISK ASSESSOR Unavailable Unavailable LY, R DAVID CLIMATE CHANGE RISK ASSESSOR Unavailable Unavailable LY, R DAVID CLIMATE CHANGE RISK ASSESSOR Unavailable Unavailable LY, R DAVID CLIMATE CHANGE RISK ASSESSOR Unavailable Unavailable LY, R DAVID CLIMATE CHANGE RISK ASSESSOR Unavailable Unavailable LY, R DAVID CLIMATE CHANGE RISK ASSESSOR Unavailable Unavailable LY, R DAVID CLIMATE CHANGE RISK ASSESSOR Unavailable Unavailable LY, R DAVID CLIMATE CHANGE RISK ASSESSOR Unavailable Unavailable LY, R DAVID CLIMATE CHANGE RISK ASSESSOR Unavailable Unavailable LY, R DAVID CLIMATE CHANGE RISK ASSESSOR Unavailable Unavailable LY, R DAVID CLIMATE CHANGE RISK ASSESSOR Unavailable Unavailable LY, R DAVID CLIMATE CHANGE RISK ASSESSOR Unavailable Unavailable LY, R DAVID CLIMATE CHANGE RISK ASSESSOR Unavailable Unavailable LY, R DAVID CLIMATE CHANGE RISK ASSESSOR Unavailable Unavailable LY, R DAVID CLIMATE CHANGE RISK ASSESSOR Unavailable Unavailable LY, R DAVID CLIMATE CHANGE RISK ASSESSOR Unavailable Unavailable LY, R DAVID CLIMATE CHANGE RISK ASSESSOR Unavailable Unavailable LY, R DAVID CLIMATE CHANGE RISK ASSESSOR Unavailable Unavailable LY, R DAVID CLIMATE CHANGE RISK ASSESSOR Unavailable Unavailable LY, R DAVID CLIMATE CHANGE RISK ASSESSOR Unavailable Unavailable LY, R DAVID CLIMATE CHANGE RISK ASSESSOR Unavailable Unavailable LY, R DAVID CLIMATE CHANGE RISK ASSESSOR Unavailable Unavailable LY, R DAVID CLIMATE CHANGE RISK ASSESSOR Unavailable Unavailable LY, R DAVID CLIMATE CHANGE RISK ASSESSOR Unavailable Unavailable LY, R DAVID CLIMATE CHANGE RISK ASSESSOR Unavailable Unavailable LY, R DAVID CLIMATE CHANGE RISK ASSESSOR Unavailable Unavailable LY, R DAVID CLIMATE CHANGE RISK ASSESSOR Unavailable Unavailable LY, R DAVID CLIMATE CHANGE RISK ASSESSOR Unavailable Unavailable LY, R DAVID CLIMATE CHANGE RISK ASSESSOR Unavailable Unavailable LY, R DAVID CLIMATE CHANGE RISK ASSESSOR Unavailable Unavailable LY, R DAVID CLIMATE CHANGE RISK ASSESSOR Unavailable Unavailable LY, R DAVID CLIMATE CHANGE RISK ASSESSOR Unavailable Unavailable Scozzari, K Lissy PA Unavailable [...] / UNKNOWN PROVIDER * Unavailable Unavailable Fish, [facility], PA-C Unavailable Unavailabl e Fish, [facility], PA-C Unavailable Unavailabl e Fish, [facility], PA-C Unavailable Unavailabl e Fish, [facility], PA-C Unavailable Unavailabl e Fish, [facility], PA-C Unavailable Unavailabl e Fish, [facility], PA-C Unavailable Unavailabl e Fish, [facility], PA-C Unavailable Unavailabl e Fish, [facility], PA-C Unavailable Unavailabl e Fish, [facility], PA-C Unavailable Unavailabl e Fish, [facility], PA-C Unavailable Unavailabl e Fish, [facility], PA-C Unavailable Unavailabl e Fish, [facility], PA-C Unavailable Unavailabl e Fish, [facility], PA-C Unavailable Unavailabl e Fish, [facility], PA-C Unavailable Unavailabl e Fish, [facility], PA-C Unavailable Unavailabl e Fish, [facility], PA-C Unavailable Unavailabl e Fish, [facility], PA-C Unavailable Unavailabl e Fish, [facility], PA-C Unavailable Unavailabl e Fish, [facility], PA-C Unavailable Unavailabl e Fish, [facility], PA-C Unavailable Unavailabl e Fish, [facility], PA-C Unavailable Unavailabl e Fish, [facility], PA-C Unavailable Unavailabl e Fish, [facility], PA-C Unavailable Unavailabl e Fish, [facility], PA-C Unavailable Unavailabl e Fish, [facility], PA-C Unavailable Unavailabl e Fish, [facility], PA-C Unavailable Unavailabl e Fish, [facility], PA-C Unavailable Unavailabl e Fish, [facility], PA-C Unavailable Unavailabl e Fish, [facility], PA-C Unavailable Unavailabl e Fish, [facility], PA-C Unavailable Unavailabl e Fish, [facility], PA-C Unavailable Unavailabl e Fish, [facility], PA-C Unavailable Unavailabl e Fish, [facility], PA-C Unavailable Unavailabl e Lizy REYNOLDS [...] Unavailable Lizy REYNOLDS MD Unavailable Unavailable Lizy REYNOLSD MD Unavailable Unavailable Lizy REYNOLDS MD Unavailable [...] Unavailable PAULYLizy ALEXANDRE MD Unavailable Unavailable Lizy BUNEO MD Unavailable Unavailable PAULYLizy ALEXANDRE MD Unavailable [...] Unavailable Unavailable Lizy BUENO MD Unavailable Unavailable Lziy BUENO MD Unavailable Unavailable Lizy BUENO MD [...] is protected by Article 27-F of the [place] State Public Health law. If you continue you may have access to information: Regarding HIV / AIDS; Provided by facilities licensed or operated by the [facility] Office of Mental Health; or Provided by the [facility] Office for People With Developmental Disabilities. If such information is present, then the following [facility] mandated warning applies: This information has been [...] law may result in a fine or intermediate sentence or both. A general authorization for the release of medical or other information is NOT sufficient authorization for further disc losure. Allergies and Adverse Reactions Type Description Substance Reaction Status Data Source(s ) Substance/Environmental Agent Allergy Substance/Environmenta l Agent Allergy Trimethoprim MEDENT ([facility] ) Substance/Environmental Agent Allergy Substance/Environmenta l Agent Allergy Sulfamethoxazole Anyphylaxis Severe MEDENT ([facility]) Adverse Reaction Adverse Reaction Morphine ME DENT ([facility]) Drug allergy Morphine Sulfate Morphine IV = BURNING AN D ITCHING BUT CAN TAKE WITH BENADRYL Active eCW1 ([facility]) Drug allergy Bactrim sulfamethoxazole / trimethoprim Anaphylaxis Active eCW1 ([facility]) Drug allergy Vancomycin HCl Vancomycin itching "I want to rip my skin off" Active eCW1 ([facility]) Drug allergy Fentanyl Fentanyl itching "I want to rip my skin off " Active eCW1 ([facility]) Drug allergy Levaquin Drug allergy IV pruritis, redness Active eCW1 ([facility]) Drug allergy Penicillin V Potassium Penicillin V Rash Active eCW1 ([facility]) tetracycline Tetracycline HCl Tetracycline Rash Active eCW1 ([facility]) Erythromycin Erythromycin Erythromycin Rash Active eCW1 ([facility]) duracef duracef duracef Rash Active eCW1 ([facility]) Adhesive Bandages Adhesive Bandages Adhesive Bandages rash,blisters Active eCW1 ([facility]) duracef duracef duracef Rash Active eCW1 ([facility]) Adhesive Bandages Adhesive Bandages Adhesive Bandages rash,blisters Active eCW1 ([facility]) duracef duracef duracef Rash Active eCW1 ([facility]) Adhesive Bandages Adhesive Bandages Adhesive Bandages rash,blisters Active eCW1 ([facility]) Levaquin Levaquin Levofloxacin 750 MG Oral Tablet [Levaquin] IV pruritis, redness Active eCW1 ([facility]) duracef duracef duracef Rash Active eCW1 ([facility]) Adhesive Bandages Adhesive Bandages Adhesive Bandages rash,blisters Active eCW1 ([facility]) duracef duracef duracef Rash Active eCW1 ([facility]) Adhesive Bandages Adhesive Bandages Adhesive Bandages rash,blisters Active eCW1 ([facility]) Family History Family Member Name Family Member Gender Family Member Status Date o f Status Description Data Source(s) Unknown Unknown Problem MEDENT ([facility], ) Mother Encounters Encounter Providers Location Date Indications Data Source(s ) Outpatient Attender: KARLA FRANCO MD 07/15/2020 12:00:00 A M [facility] O Attender: Cezar LOPEZ 06/28/19 08:58:29 AM [email or web address] 06/28/2020 09:20:16 AM EST Nilda ([facility] ) Outpatient Attender: Audrey LOPEZ [email or web address] 04/2021 12:00:00 AM [facility] - 06/26/2020 01:07:00 PM EST [facility] Outpatient Referrer: Rufina Chong MD [id number] 06/23/2020 12:00:00 A M [facility] Unknown [address] [facility] [address] 06/18/2020 12:00:00 AM EST eCW1 ([facility]) [place] [address] [facility] [address] 06/12/2020 12:00:00 AM EST eCW1 ([facility]) Outpatient [address] [facility] [address] 06/11/2020 12:00:00 AM EST eCW1 ([facility]) Outpatient [address] [facility] [id number] 06/11/2020 12:00:00 AM EST [facility] Outpatient Attender: KARLA FRANCO MDReferrer: KARLA FRANCO MD 06/11/2020 12:00:[address] [facility] Unknown [address] [facility] [place] [address] 06/09/2020 12:00:00 AM EST eCW1 ([facility]) Unknown [address] [facility] [address] 06/05/2020 12:00:00 AM EST [facility]CW1 [facility] Unknown [address] [facility] [address] 06/04/2020 12:00:00 AM EST [facility]CW1 [facility]) (PN Proc 60) Pain Procedure 60 [address] [place] [address] 05/27/2020 12:00:00 AM EST eCW1 ([facility]) Unknown [address] [facility] [id number] 05/26/2020 12:00:00 AM EST [facility]CW1 [facility] Unknown [address] [facility] [address] 05/25/2020 12:00:00 AM EST eCW1 [facility] Outpatient [address] [facility] [address] 05/22/2020 12:00:00 AM EST eCW1 [facility] Outpatient [address] [facility] [address] 05/21/2020 12:00:00 AM EST eCW1 [facility] ([facility] Scheduled Visit [address] [place] [address] 05/20/2020 12:00:00 AM EST eCW1 ([facility]) Unknown [address] [facility] [place] [address] 05/06/2020 12:00:00 AM EST eCW1 ([facility]) Unknown [address] [facility] [place] [address] 05/06/2020 12:00:00 AM EST [facility]CW1 [facility] Unknown [address] [facility] [place] [address] 05/05/2020 12:00:00 AM EST eCW1 ([facility]) Unknown [address] [facility] [place] [address] 04/21/2020 12:00:00 AM EST eCW1 ([facility]) Outpatient Attender: KARLA FRANCO MD 04/15/2020 12:00:00 A M [facility] ([facility]) [facility] [address] [place] [address] 04/08/2020 12:00:00 AM EST eCW1 ([facility]) Unknown [address] [facility] [place] [address] 04/08/2020 12:00:00 AM EST eCW1 ([facility]) Outpatient [address] [facility] [id number] 04/08/2020 12:00:00 AM EST eCW1 ([facility]) Unknown [address] [facility] [address] 04/01/2020 12:00:00 AM EST eCW1 ([facility]) Outpatient Attender: DEFAULT / GENE SHAHLA / UNKNOWN PROVIDER ALIASES Referrer: KARLA FRANCO MD [id number] 03/31/2020 12:00:00 AM T - 04/01/2020 12:00:00 AM [facility] Outpatient Referrer: Rufina Chong MD [id number] 03/31/2020 12:00:00 A M [facility] (PN Proc 45) Pain Procedure 45 [address] [place] [address] 03/23/2020 12:00:00 AM EST eCW1 [facility] Unknown [address] [facility] [address] 03/20/2020 12:00:00 AM EST [facility]CW1 [facility]) Outpatient Attender: Inés Baca CASEY CESPEDES 03/19/2020 03:38:01 [facility] Outpatient Attender: Inés Baca CASEY GALVAN 03/18/2020 11:27:00 A [facility] Outpatient Attender: Inés Baca CASEY GALVAN 03/18/2020 08:38:01 A [facility] ([facility]) [facility] [address] [place] [address] 03/10/2020 12:00:00 AM EDT eCW1 ([facility]) Outpatient [address] [facility] [id number] 03/09/2020 12:00:00 AM EDT eCW1 ([facility]) Outpatient [address] [facility] [address] 03/06/2020 12:00:00 AM EDT eCW1 ([facility]) Office Visit, Est Pt., Level 4 PC [address] [place] [address] 02/28/2020 12:00:00 AM EDT eCW1 ([facility]) Outpatient Attender: Lissy Mouraerrer: Rufina Chong MD 02/19/2020 09:10:52 AM EDT [facility] ([facility]) [facility]uled Visit [address] [place] [address] 02/14/2020 12:00:00 AM EDT eCW1 ([facility]) Unknown [address] [facility] [address] 02/13/2020 12:00:00 AM EDT eCW1 ([facility]) Outpatient Attender: Anatoliy Rosa MD Main office - [place] 02/05/2020 11:00:00 AM EDT MEDENT ([facility]) Outpatient Attender: Sergio KEMP SJP.REMIGIO-[email or web address].REMIGIO 0 09:27:18 AM EDT - 02/05/2020 10:18:22 AM EDT [facility] Outpatient Attender: Inés Baca CASEY WATNDC 01/15/2020 01:08:02 P M EDT [facility] Outpatient Attender: Inés Baca GUMEBree WATND 01/15/2020 11:36:02 A M EDT [facility] Outpatient Attender: Arabella LYON PA-C Physical Therapy 12/04/2019 05:30:00 PM EDT MEDENT ([facility]) Unknown [address] [facility] [address] 12/02/2019 12:00:00 AM EDT eCW1 ([facility]) Unknown [facility] [facility] [address] 12/02/2019 12:00:00 AM EDT eCW1 ([facility]) Outpatient Attender: ESHA BUENO MD 11/29/2019 09:29:00 A M EDT [facility] Outpatient Referrer: DAVID LY NP 11/27/2019 1 2:00:00 AM EDT Pain in right [facility] Pain in right shoulder Outpatient Referrer: DAVID LY NP 11/27/2019 1 2:00:00 AM EDT Pain in right [facility] Pain in right shoulder ([facility]) [facility] Scheduled Visit [address] [place] [address] 11/25/2019 12:00:00 AM EDT eCW1 ([facility]) Outpatient Attender: Anatoliy Rosa MD Main office - [place] 11/19/2019 02:00:00 PM EDT MEDENT ([facility]) Outpatient Attender: DAVID LY NP [id number] 10/2019 12:00:00 AM EDT - 2019 02:18:36 PM EDT Pain [facility] Outpatient Referrer: DAVID LY NP 2019 1 2:00:00 AM EDT Pain in right shoulder [facility] Pain in right shoulder Outpatient Attender: ESHA HUYNH 11/13/2019 10:09:00 A M EDT [facility] Outpatient Referrer: ROBERTA REYNOLDS MD 11/11/2019 01:46:00 PM EDT [facility] [address] [address] 11/08/2019 12:00:00 AM EDT [facility]CW1 [facility] Outpatient Attender: ROBERTA REYNOLDS MDReferrer: Rufina ortiz MD 11/06/2019 08:14:23 AM EDT [facility] [address] [address] 10/31/2019 12:00:00 AM EDT eCW1 ([facility]) Outpatient Attender: DAVID LY NP 10/31/2019 12:00:0 0 AM EDT [address] [address] 10/18/2019 12:00:00 AM EDT eCW1 ([facility]) Outpatient Referrer: Sandip Blanchard MD 10/17/2019 04:46:00 AM EDT [facility] Outpatient Attender: ROBERTA HYLTONeferrer: Rufina ortiz MD 10/10/2019 10:54:26 AM EDT [facility] Recurring Patient Referrer: Rufina Chong MD 10/08/2019 01: 07:16 PM EDT [facility] [address], [facility] [address] 10/08/2019 12:00:00 AM EDT [facility]CW1 [facility]) [address] [address] 10/04/2019 12:00:00 AM EDT eCW1 ([facility]) Outpatient Referrer: Audrey BERNARDO.REMIGIO-SJNaomyREMIGIO 12:00:00 AM EDT [facility] Recurring Patient Referrer: Rufina Chong MD 09/23/2019 03: 50:23 PM EDT [facility] [address] [address] 09/17/2019 12:00:00 AM EDT eCW1 [facility]) [facility] [address] [place] [address] Y [address] 09/10/2019 12:00:00 AM EDT eCW1 [facility]) [address] [place] [address] 09/09/2019 12:00:00 AM EDT eCW1 [facility]) [address] [place] [address] 09/09/2019 12:00:00 AM EDT [facility]CW1 [facility] [place] [address] [address] 09/02/2019 12:00:00 AM EDT eCW1 [facility]) [address] Y [address] 08/29/2019 12:00:00 AM EDT [facility]CW1 [facility]) Outpatient [address] [facility] [place] [address] 08/29/2019 12:00:00 AM EDT eCW1 [facility]) Unknown [address] [facility] [place] [address] 08/20/2019 12:00:00 AM EDT eCW1 [facility] [facility] Unknown [address] [facility] [place] [address] 08/20/2019 12:00:00 AM EDT [facility] Outpatient Referrer: Sandip Blanchard MD 08/07/2019 06:14:[address] [facility] Radiology Imaging Outpatient Attender: ESHA HUYNH 08/06/2019 09:01:05 P M EDT [facility] Outpatient Attender: ROBERTA REYNOLDS MDReferrer: Rufina ortiz MD 07/25/2019 01:17:30 PM EDT [facility] Recurring Patient Referrer: Rufina Chong MD 07/18/2019 09: 18:23 AM EST [facility] Recurring Patient Referrer: Rufina hCong MD 07/18/2019 09: 15:16 AM EST [facility] Recurring Patient Referrer: IRINA VIEYRA MD 07/18/2019 09:1 2:32 AM EST [facility] [address] [address] 07/18/2019 12:00:00 AM EST eCW1 ([facility]) Recurring Patient Referrer: IRINA VIEYRA MD 07/16/2019 08:2 7:04 AM EST [facility] Recurring Patient Referrer: IRINA VIEYRA MD 07/16/2019 08:2 4:21 AM EST [facility] Recurring Patient Referrer: IRINA VIEYRA MD 07/16/2019 08:2 3:59 AM EST [facility] [address] [address] 07/16/2019 12:00:00 AM EST eCW1 ([facility]) [address] [address] 07/16/2019 12:00:00 AM EST eCW1 ([facility]) [address] [address] 07/16/2019 12:00:00 AM EST eCW1 ([facility]) [address] [address] 07/09/2019 12:00:00 AM EST eCW1 ([facility]) Outpatient Attender: Audrey VELÁSQUEZREMIGIO-SJP.REMIGIO 10/2019 08:49:51 AM EST - 06/20/2019 09:40:16 AM EST [address] [place] [address] 06/12/2019 12:00:00 AM EST eCW1 ([facility]) Outpatient Referrer: Sandip Blanchard MD 06/04/2019 07:26:00 PM EST [facility] [address] [facility] [address] 06/04/2019 12:00:00 AM EST eCW1 ([facility]) [facility] [address] [place] [phone] 05/17/2019 12:00:00 AM EST eCW1 ([facility]) [address] [address] 05/16/2019 12:00:00 AM EST eCW1 ([facility]) [address] [address] 05/14/2019 12:00:00 AM EST eCW1 ([facility]) [address] [address] 05/03/2019 12:00:00 AM EST eCW1 ([facility]) Outpatient Attender: KARLA FRANCO MDReferrer: DAVID TAMAYO DS CLIMATE CHANGE RISK ASSESSOR [id number] 02/08/2018 12:00:00 AM EDT - 02/08/2018 02:17:32 PM EDT Morbid (severe) obesity due to excess calories [facility] Morbid (severe) obesity due to excess ca lories Immunizations Vaccine Date Status Description Data Source(s) influenza, recombinant, quadrIvalent,injectable, prese rvative free 02/28/2020 02:56:00 PM EDT completed eCW1 ([facility]) influenza, recombinant, quadrIvalent,injectable, prese rvative free 02/28/2020 02:56:00 PM EDT completed eCW1 ([facility]) influenza, recombinant, quadrIvalent,injectable, prese rvative free 02/28/2020 02:56:00 PM EDT completed eCW1 ([facility]) influenza, recombinant, quadrIvalent,injectable, prese rvative free 02/28/2020 02:56:00 PM EDT completed eCW1 ([facility]) influenza, recombinant, quadrIvalent,injectable, prese rvative free 02/28/2020 02:56:00 PM EDT completed eCW1 ([facility]) influenza, recombinant, quadrIvalent,injectable, prese rvative free 02/28/2020 02:56:00 PM EDT completed eCW1 ([facility]) influenza, recombinant, quadrIvalent,injectable, prese rvative free 02/28/2020 02:56:00 PM EDT completed eCW1 ([facility]) influenza, recombinant, quadrIvalent,injectable, prese rvative free 02/28/2020 02:56:00 PM EDT completed eCW1 ([facility]) influenza, recombinant, quadrIvalent,injectable, prese rvative free 02/28/2020 02:56:00 PM EDT completed eCW1 ([facility]) influenza, recombinant, quadrIvalent,injectable, prese rvative free 02/28/2020 02:56:00 PM EDT completed eCW1 ([facility]) influenza, recombinant, quadrIvalent,injectable, prese rvative free 02/28/2020 02:56:00 PM EDT completed eCW1 ([facility]) influenza, recombinant, quadrIvalent,injectable, prese rvative free 02/28/2020 02:56:00 PM EDT completed eCW1 ([facility]) influenza, recombinant, quadrIvalent,injectable, prese rvative free 02/28/2020 02:56:00 PM EDT completed eCW1 ([facility]) influenza, recombinant, quadrIvalent,injectable, prese rvative free 02/28/2020 02:56:00 PM EDT completed eCW1 ([facility]) influenza, recombinant, quadrIvalent,injectable, prese rvative free 02/28/2020 02:56:00 PM EDT completed eCW1 ([facility]) influenza, recombinant, quadrIvalent,injectable, prese rvative free 02/28/2020 02:56:00 PM EDT completed eCW1 ([facility]) influenza, recombinant, quadrIvalent,injectable, prese rvative free 02/28/2020 02:56:00 PM EDT completed eCW1 ([facility]) influenza, recombinant, quadrIvalent,injectable, prese rvative free 02/28/2020 02:56:00 PM EDT completed eCW1 ([facility]) influenza, recombinant, quadrIvalent,injectable, prese rvative free 02/28/2020 02:56:00 PM EDT completed eCW1 ([facility]) influenza, recombinant, quadrIvalent,injectable, prese rvative free 02/28/2020 02:56:00 PM EDT completed eCW1 ([facility]) influenza, recombinant, quadrIvalent,injectable, prese rvative free 02/28/2020 02:56:00 PM EDT completed eCW1 ([facility]) influenza, recombinant, quadrIvalent,injectable, prese rvative free 02/28/2020 02:56:00 PM EDT completed eCW1 ([facility]) influenza, recombinant, quadrIvalent,injectable, prese rvative free 02/28/2020 02:56:00 PM EDT completed eCW1 ([facility]) influenza, recombinant, quadrIvalent,injectable, prese rvative free 02/28/2020 02:56:00 PM EDT completed eCW1 ([facility]) influenza, recombinant, quadrIvalent,injectable, prese rvative free 02/28/2020 02:56:00 PM EDT completed eCW1 ([facility]) influenza, recombinant, quadrIvalent,injectable, prese rvative free 02/28/2020 02:56:00 PM EDT completed eCW1 ([facility]) influenza, recombinant, quadrIvalent,injectable, prese rvative free 02/28/2020 02:56:00 PM EDT completed eCW1 ([facility]) Medications Medication Brand Name Start Date Product Form Dose Route Admi nistrative Instructions Pharmacy Instructions Status Indications Reaction Description Data Source(s) 24 HR Oxybutynin chloride 10 MG Extended Release Oral Tablet Oxybutynin Chloride ER 10 MG Oxybutynin Chloride ER 10 MG 06/17/2020 12:00:00 AM EST 1.0 {tablet} active Oxybutynin Chloride ER 1 0 MG eCW1 ([facility]) 24 HR Oxybutynin chloride 10 MG Extended Release Oral Tablet Oxybutynin Chloride ER 10 MG Oxybutynin Chloride ER 10 MG 06/17/2020 12:00:00 AM EST 1.0 {tablet} active Oxybutynin Chloride ER 1 0 MG eCW1 ([facility]) 24 HR Oxybutynin chloride 10 MG Extended Release Oral Tablet Oxybutynin Chloride ER 10 MG Oxybutynin Chloride ER 10 MG 06/17/2020 12:00:00 AM EST 1.0 {tablet} active Oxybutynin Chloride ER 1 0 MG eCW1 ([facility]) Myrbetriq 50 MG UNK 05/25/2020 12:00:00 AM EST 1.0 {tablet} suspended Myrbetriq 50 MG eCW1 ([facility]) Myrbetriq 50 MG UNK 05/25/2020 12:00:00 AM EST 1.0 {tablet} suspended Myrbetriq 50 MG eCW1 ([facility]) Myrbetriq 50 MG UNK 05/25/2020 12:00:00 AM EST 1.0 {tablet} active Myrbetriq 50 MG eCW1 ([facility]) Myrbetriq 50 MG UNK 05/25/2020 12:00:00 AM EST 1.0 {tablet} active Myrbetriq 50 MG eCW1 ([facility]) Myrbetriq 50 MG UNK 05/25/2020 12:00:00 AM EST 1.0 {tablet} suspended Myrbetriq 50 MG eCW1 ([facility]) Myrbetriq 50 MG UNK 05/25/2020 12:00:00 AM EST 1.0 {tablet} active Myrbetriq 50 MG eCW1 ([facility]) Myrbetriq 50 MG UNK 05/25/2020 12:00:00 AM EST 1.0 {tablet} active Myrbetriq 50 MG eCW1 ([facility]) Myrbetriq 50 MG UNK 05/25/2020 12:00:00 AM EST 1.0 {tablet} suspended Myrbetriq 50 MG eCW1 ([facility]) Myrbetriq 50 MG UNK 05/25/2020 12:00:00 AM EST 1.0 {tablet} active Myrbetriq 50 MG eCW1 ([facility]) Myrbetriq 50 MG UNK 05/25/2020 12:00:00 AM EST 1.0 {tablet} active Myrbetriq 50 MG eCW1 ([facility]) Myrbetriq 50 MG UNK 05/25/2020 12:00:00 AM EST 1.0 {tablet} suspended Myrbetriq 50 MG eCW1 ([facility]) Acetaminophen 300 MG / Codeine Phosphate 60 MG Oral Tablet Acetaminophen-Codeine #4 300-60 MG Acetaminophen-Codeine #4 300-60 MG 05/13/2020 12:00:00 AM EST 1.0 {tablet_as_needed} active Acetamino phen-Codeine #4 300-60 MG eCW1 ([facility]) Acetaminophen 300 MG / Codeine Phosphate 60 MG Oral Tablet Acetaminophen-Codeine #4 300-60 MG Acetaminophen-Codeine #4 300-60 MG 05/13/2020 12:00:00 AM EST 1.0 {tablet_as_needed} active Acetamino phen-Codeine #4 300-60 MG eCW1 ([facility]) Acetaminophen 300 MG / Codeine Phosphate 60 MG Oral Tablet Acetaminophen-Codeine #4 300-60 MG Acetaminophen-Codeine #4 300-60 MG 05/13/2020 12:00:00 AM EST 1.0 {tablet_as_needed} active Acetamino phen-Codeine #4 300-60 MG eCW1 ([facility]) Acetaminophen 300 MG / Codeine Phosphate 60 MG Oral Tablet Acetaminophen-Codeine #4 300-60 MG Acetaminophen-Codeine #4 300-60 MG 05/13/2020 12:00:00 AM EST 1.0 {tablet_as_needed} active Acetamino phen-Codeine #4 300-60 MG eCW1 ([facility]) Acetaminophen 300 MG / Codeine Phosphate 60 MG Oral Tablet Acetaminophen-Codeine #4 300-60 MG Acetaminophen-Codeine #4 300-60 MG 05/13/2020 12:00:00 AM EST 1.0 {tablet_as_needed} active Acetamino phen-Codeine #4 300-60 MG eCW1 ([facility]) Acetaminophen 300 MG / Codeine Phosphate 60 MG Oral Tablet Acetaminophen-Codeine #4 300-60 MG Acetaminophen-Codeine #4 300-60 MG 05/13/2020 12:00:00 AM EST 1.0 {tablet_as_needed} active Acetamino phen-Codeine #4 300-60 MG eCW1 ([facility]) Acetaminophen 300 MG / Codeine Phosphate 60 MG Oral Tablet Acetaminophen-Codeine #4 300-60 MG Acetaminophen-Codeine #4 300-60 MG 05/13/2020 12:00:00 AM EST 1.0 {tablet_as_needed} active Acetamino phen-Codeine #4 300-60 MG eCW1 ([facility]) Acetaminophen 300 MG / Codeine Phosphate 60 MG Oral Tablet Acetaminophen-Codeine #4 300-60 MG Acetaminophen-Codeine #4 300-60 MG 05/13/2020 12:00:00 AM EST 1.0 {tablet_as_needed} active Acetamino phen-Codeine #4 300-60 MG eCW1 ([facility]) Acetaminophen 300 MG / Codeine Phosphate 60 MG Oral Tablet Acetaminophen-Codeine #4 300-60 MG Acetaminophen-Codeine #4 300-60 MG 05/13/2020 12:00:00 AM EST 1.0 {tablet_as_needed} active Acetamino phen-Codeine #4 300-60 MG eCW1 ([facility]) Acetaminophen 300 MG / Codeine Phosphate 60 MG Oral Tablet Acetaminophen-Codeine #4 300-60 MG Acetaminophen-Codeine #4 300-60 MG 05/13/2020 12:00:00 AM EST 1.0 {tablet_as_needed} active Acetamino phen-Codeine #4 300-60 MG eCW1 ([facility]) Acetaminophen 300 MG / Codeine Phosphate 60 MG Oral Tablet Acetaminophen-Codeine #4 300-60 MG Acetaminophen-Codeine #4 300-60 MG 05/13/2020 12:00:00 AM EST 1.0 {tablet_as_needed} active Acetamino phen-Codeine #4 300-60 MG eCW1 ([facility]) Acetaminophen 300 MG / Codeine Phosphate 60 MG Oral Tablet Acetaminophen-Codeine #4 300-60 MG Acetaminophen-Codeine #4 300-60 MG 05/13/2020 12:00:00 AM EST 1.0 {tablet_as_needed} active Acetamino phen-Codeine #4 300-60 MG eCW1 ([facility]) Acetaminophen 300 MG / Codeine Phosphate 60 MG Oral Tablet Acetaminophen-Codeine #4 300-60 MG Acetaminophen-Codeine #4 300-60 MG 05/13/2020 12:00:00 AM EST 1.0 {tablet_as_needed} active Acetamino phen-Codeine #4 300-60 MG eCW1 ([facility]) Acetaminophen 300 MG / Codeine Phosphate 60 MG Oral Tablet Acetaminophen-Codeine #4 300-60 MG Acetaminophen-Codeine #4 300-60 MG 05/13/2020 12:00:00 AM EST 1.0 {tablet_as_needed} active Acetamino phen-Codeine #4 300-60 MG eCW1 ([facility]) apixaban 2.5 MG Oral Tablet [Eliquis] Eliquis 2.5 MG Eliquis 2.5 MG 05/06/2020 12:00:00 AM EST 1.0 {tablet} active El iquis 2.5 MG eCW1 ([facility]) apixaban 2.5 MG Oral Tablet [Eliquis] Eliquis 2.5 MG Eliquis 2.5 MG 05/06/2020 12:00:00 AM EST 1.0 {tablet} active El iquis 2.5 MG eCW1 ([facility]) apixaban 2.5 MG Oral Tablet [Eliquis] Eliquis 2.5 MG Eliquis 2.5 MG 05/06/2020 12:00:00 AM EST 1.0 {tablet} active El iquis 2.5 MG eCW1 ([facility]) apixaban 2.5 MG Oral Tablet [Eliquis] Eliquis 2.5 MG Eliquis 2.5 MG 05/06/2020 12:00:00 AM EST 1.0 {tablet} active El iquis 2.5 MG eCW1 ([facility]) apixaban 2.5 MG Oral Tablet [Eliquis] Eliquis 2.5 MG Eliquis 2.5 MG 05/06/2020 12:00:00 AM EST 1.0 {tablet} active El iquis 2.5 MG eCW1 ([facility]) apixaban 2.5 MG Oral Tablet [Eliquis] Eliquis 2.5 MG Eliquis 2.5 MG 05/06/2020 12:00:00 AM EST 1.0 {tablet} active El iquis 2.5 MG eCW1 ([facility]) apixaban 2.5 MG Oral Tablet [Eliquis] Eliquis 2.5 MG Eliquis 2.5 MG 05/06/2020 12:00:00 AM EST 1.0 {tablet} active El iquis 2.5 MG eCW1 ([facility]) apixaban 2.5 MG Oral Tablet [Eliquis] Eliquis 2.5 MG Eliquis 2.5 MG 05/06/2020 12:00:00 AM EST 1.0 {tablet} active El iquis 2.5 MG eCW1 ([facility]) apixaban 2.5 MG Oral Tablet [Eliquis] Eliquis 2.5 MG Eliquis 2.5 MG 05/06/2020 12:00:00 AM EST 1.0 {tablet} active El iquis 2.5 MG eCW1 ([facility]) apixaban 2.5 MG Oral Tablet [Eliquis] Eliquis 2.5 MG Eliquis 2.5 MG 05/06/2020 12:00:00 AM EST 1.0 {tablet} active El iquis 2.5 MG eCW1 ([facility]) apixaban 2.5 MG Oral Tablet [Eliquis] Eliquis 2.5 MG Eliquis 2.5 MG 05/06/2020 12:00:00 AM EST 1.0 {tablet} active El iquis 2.5 MG eCW1 ([facility]) apixaban 2.5 MG Oral Tablet [Eliquis] Eliquis 2.5 MG Eliquis 2.5 MG 05/06/2020 12:00:00 AM EST 1.0 {tablet} active El iquis 2.5 MG eCW1 ([facility]) apixaban 2.5 MG Oral Tablet [Eliquis] Eliquis 2.5 MG Eliquis 2.5 MG 05/06/2020 12:00:00 AM EST 1.0 {tablet} active El iquis 2.5 MG eCW1 ([facility]) apixaban 2.5 MG Oral Tablet [Eliquis] Eliquis 2.5 MG Eliquis 2.5 MG 05/06/2020 12:00:00 AM EST 1.0 {tablet} active El iquis 2.5 MG eCW1 ([facility]) apixaban 2.5 MG Oral Tablet [Eliquis] Eliquis 2.5 MG Eliquis 2.5 MG 05/06/2020 12:00:00 AM EST 1.0 {tablet} active El iquis 2.5 MG eCW1 ([facility]) apixaban 2.5 MG Oral Tablet [Eliquis] Eliquis 2.5 MG Eliquis 2.5 MG 05/06/2020 12:00:00 AM EST 1.0 {tablet} active El iquis 2.5 MG eCW1 ([facility]) Aimovig 140 MG/ML Subcutaneous Solution Auto-injector 19660- 843-01 03/11/2020 12:00:00 AM EDT 1 mL Subcutaneous active Inject 1 mL into the skin every 30 (thirty) days [facility] 24 HR Bupropion Hydrochloride 150 MG Ext ended Release Oral Tablet [Wellbutrin] Wellbutrin XL 150 MG Wellbutrin XL 150 MG 02/28/2020 12:00:00 AM EDT 1.0 {tablet_in_the_morning} active Wellbutr in XL 150 MG eCW1 ([facility]) gabapentin 600 MG Oral Tablet Gabapentin 600 MG Gabapentin 6 00 MG 02/28/2020 12:00:00 AM EDT 1.0 {tablet} active Ga bapentin 600 MG eCW1 ([facility]) 24 HR Bupropion Hydrochloride 150 MG Ext ended Release Oral Tablet [Wellbutrin] Wellbutrin XL 150 MG Wellbutrin XL 150 MG 02/28/2020 12:00:00 AM EDT 1.0 {tablet_in_the_morning} active Wellbutr in XL 150 MG eCW1 ([facility]) gabapentin 600 MG Oral Tablet Gabapentin 600 MG Gabapentin 6 00 MG 02/28/2020 12:00:00 AM EDT 1.0 {tablet} active Ga bapentin 600 MG eCW1 ([facility]) Amoxicillin 500 MG Oral Capsule Amoxicillin 500 MG 02/28/2020 12:00 :00 AM EDT suspended Amoxicillin 500 MG eCW 1 ([facility]) gabapentin 600 MG Oral Tablet Gabapentin 600 MG Gabapentin 6 00 MG 02/28/2020 12:00:00 AM EDT 1.0 {tablet} active Ga bapentin 600 MG eCW1 ([facility]) Amoxicillin 500 MG Oral Capsule Amoxicillin 500 MG 02/28/2020 12:00 :00 AM EDT suspended Amoxicillin 500 MG eCW 1 ([facility]) gabapentin 600 MG Oral Tablet Gabapentin 600 MG Gabapentin 6 00 MG 02/28/2020 12:00:00 AM EDT 1.0 {tablet} active Ga bapentin 600 MG eCW1 ([facility]) 24 HR Bupropion Hydrochloride 150 MG Ext ended Release Oral Tablet [Wellbutrin] Wellbutrin XL 150 MG Wellbutrin XL 150 MG 02/28/2020 12:00:00 AM EDT 1.0 {tablet_in_the_morning} active Wellbutr in XL 150 MG eCW1 ([facility]) gabapentin 600 MG Oral Tablet Gabapentin 600 MG Gabapentin 6 00 MG 02/28/2020 12:00:00 AM EDT 1.0 {tablet} active Ga bapentin 600 MG eCW1 ([facility]) Amoxicillin 500 MG Oral Capsule Amoxicillin 500 MG 02/28/2020 12:00 :00 AM EDT suspended Amoxicillin 500 MG eCW 1 ([facility]) gabapentin 600 MG Oral Tablet Gabapentin 600 MG Gabapentin 6 00 MG 02/28/2020 12:00:00 AM EDT 1.0 {tablet} active Ga bapentin 600 MG eCW1 ([facility]) gabapentin 600 MG Oral Tablet Gabapentin 600 MG Gabapentin 6 00 MG 02/28/2020 12:00:00 AM EDT 1.0 {tablet} active Ga bapentin 600 MG eCW1 ([facility]) Amoxicillin 500 MG Oral Capsule Amoxicillin 500 MG 02/28/2020 12:00 :00 AM EDT active Amoxicillin 500 MG eCW1 ([facility]) Amoxicillin 500 MG Oral Capsule Amoxicillin 500 MG 02/28/2020 12:00 :00 AM EDT active Amoxicillin 500 MG eCW1 ([facility]) 24 HR Bupropion Hydrochloride 150 MG Ext ended Release Oral Tablet [Wellbutrin] Wellbutrin XL 150 MG Wellbutrin XL 150 MG 02/28/2020 12:00:00 AM EDT 1.0 {tablet_in_the_morning} active Wellbutr in XL 150 MG eCW1 ([facility]) 24 HR Bupropion Hydrochloride 150 MG Ext ended Release Oral Tablet [Wellbutrin] Wellbutrin XL 150 MG Wellbutrin XL 150 MG 02/28/2020 12:00:00 AM EDT 1.0 {tablet_in_the_morning} active Wellbutr in XL 150 MG eCW1 ([facility]) gabapentin 600 MG Oral Tablet Gabapentin 600 MG Gabapentin 6 00 MG 02/28/2020 12:00:00 AM EDT 1.0 {tablet} active Ga bapentin 600 MG eCW1 ([facility]) gabapentin 600 MG Oral Tablet Gabapentin 600 MG Gabapentin 6 00 MG 02/28/2020 12:00:00 AM EDT 1.0 {tablet} active Ga bapentin 600 MG eCW1 ([facility]) Amoxicillin 500 MG Oral Capsule Amoxicillin 500 MG 02/28/2020 12:00 :00 AM EDT active Amoxicillin 500 MG eCW1 ([facility]) 24 HR Bupropion Hydrochloride 150 MG Ext ended Release Oral Tablet [Wellbutrin] Wellbutrin XL 150 MG Wellbutrin XL 150 MG 02/28/2020 12:00:00 AM EDT 1.0 {tablet_in_the_morning} active Wellbutr in XL 150 MG eCW1 ([facility]) Amoxicillin 500 MG Oral Capsule Amoxicillin 500 MG 02/28/2020 12:00 :00 AM EDT suspended Amoxicillin 500 MG eCW 1 ([facility]) Amoxicillin 500 MG Oral Capsule Amoxicillin 500 MG 02/28/2020 12:00 :00 AM EDT suspended Amoxicillin 500 MG eCW 1 ([facility]) 24 HR Bupropion Hydrochloride 150 MG Ext ended Release Oral Tablet [Wellbutrin] Wellbutrin XL 150 MG Wellbutrin XL 150 MG 02/28/2020 12:00:00 AM EDT 1.0 {tablet_in_the_morning} active Wellbutr in XL 150 MG eCW1 ([facility]) gabapentin 600 MG Oral Tablet Gabapentin 600 MG Gabapentin 6 00 MG 02/28/2020 12:00:00 AM EDT 1.0 {tablet} active Ga bapentin 600 MG eCW1 ([facility]) gabapentin 600 MG Oral Tablet Gabapentin 600 MG Gabapentin 6 00 MG 02/28/2020 12:00:00 AM EDT 1.0 {tablet} active Ga bapentin 600 MG eCW1 ([facility]) gabapentin 600 MG Oral Tablet Gabapentin 600 MG Gabapentin 6 00 MG 02/28/2020 12:00:00 AM EDT 1.0 {tablet} active Ga bapentin 600 MG eCW1 ([facility]) Amoxicillin 500 MG Oral Capsule Amoxicillin 500 MG 02/28/2020 12:00 :00 AM EDT suspended Amoxicillin 500 MG eCW 1 ([facility]) gabapentin 600 MG Oral Tablet Gabapentin 600 MG Gabapentin 6 00 MG 02/28/2020 12:00:00 AM EDT 1.0 {tablet} active Ga bapentin 600 MG eCW1 ([facility]) 24 HR Bupropion Hydrochloride 150 MG Ext ended Release Oral Tablet [Wellbutrin] Wellbutrin XL 150 MG Wellbutrin XL 150 MG 02/28/2020 12:00:00 AM EDT 1.0 {tablet_in_the_morning} active Wellbutr in XL 150 MG eCW1 ([facility]) gabapentin 600 MG Oral Tablet Gabapentin 600 MG Gabapentin 6 00 MG 02/28/2020 12:00:00 AM EDT 1.0 {tablet} active Ga bapentin 600 MG eCW1 ([facility]) gabapentin 600 MG Oral Tablet Gabapentin 600 MG Gabapentin 6 00 MG 02/28/2020 12:00:00 AM EDT 1.0 {tablet} active Ga bapentin 600 MG eCW1 ([facility]) Amoxicillin 500 MG Oral Capsule Amoxicillin 500 MG 02/28/2020 12:00 :00 AM EDT active Amoxicillin 500 MG eCW1 ([facility]) gabapentin 600 MG Oral Tablet Gabapentin 600 MG Oral T ablet (NEURONTIN) Gabapentin 600 MG Oral Tablet (NEURONTIN) 02/28/2020 12:00:00 AM EDT 600 mg Oral active Take 600 mg by mouth Three times daily [facility] 24 HR Bupropion Hydrochloride 150 MG Ext ended Release Oral Tablet [Wellbutrin] Wellbutrin XL 150 MG Wellbutrin XL 150 MG 02/28/2020 12:00:00 AM EDT 1.0 {tablet_in_the_morning} active Wellbutr in XL 150 MG eCW1 ([facility]) gabapentin 600 MG Oral Tablet Gabapentin 600 MG Gabapentin 6 00 MG 02/28/2020 12:00:00 AM EDT 1.0 {tablet} active Ga bapentin 600 MG eCW1 ([facility]) Amoxicillin 500 MG Oral Capsule Amoxicillin 500 MG 02/28/2020 12:00 :00 AM EDT suspended Amoxicillin 500 MG eCW 1 ([facility]) Amoxicillin 500 MG Oral Capsule Amoxicillin 500 MG 02/28/2020 12:00 :00 AM EDT suspended Amoxicillin 500 MG eCW 1 ([facility]) gabapentin 600 MG Oral Tablet Gabapentin 600 MG Gabapentin 6 00 MG 02/28/2020 12:00:00 AM EDT 1.0 {tablet} active Ga bapentin 600 MG eCW1 ([facility]) Amoxicillin 500 MG Oral Capsule Amoxicillin 500 MG 02/28/2020 12:00 :00 AM EDT suspended Amoxicillin 500 MG eCW 1 ([facility]) gabapentin 600 MG Oral Tablet Gabapentin 600 MG Gabapentin 6 00 MG 02/28/2020 12:00:00 AM EDT 1.0 {tablet} active Ga bapentin 600 MG eCW1 ([facility]) 24 HR Bupropion Hydrochloride 150 MG Ext ended Release Oral Tablet [Wellbutrin] Wellbutrin XL 150 MG Wellbutrin XL 150 MG 02/28/2020 12:00:00 AM EDT 1.0 {tablet_in_the_morning} active Wellbutr in XL 150 MG [facility] [facility] Amoxicillin 500 MG Oral Capsule Amoxicillin 500 MG 02/28/2020 12:00 :00 AM EDT suspended Amoxicillin 500 MG eCW 1 ([facility]) Amoxicillin 500 MG Oral Capsule Amoxicillin 500 MG 02/28/2020 12:00 :00 AM EDT suspended Amoxicillin 500 MG eCW 1 ([facility]) gabapentin 600 MG Oral Tablet Gabapentin 600 MG Gabapentin 6 00 MG 02/28/2020 12:00:00 AM EDT 1.0 {tablet} active Ga bapentin 600 MG eCW1 ([facility]) Amoxicillin 500 MG Oral Capsule Amoxicillin 500 MG 02/28/2020 12:00 :00 AM EDT suspended Amoxicillin 500 MG eCW 1 ([facility]) 24 HR Bupropion Hydrochloride 150 MG Ext ended Release Oral Tablet [Wellbutrin] Wellbutrin XL 150 MG Wellbutrin XL 150 MG 02/28/2020 12:00:00 AM EDT 1.0 {tablet_in_the_morning} active Wellbutr in XL 150 MG eCW1 ([facility]) gabapentin 600 MG Oral Tablet Gabapentin 600 MG Gabapentin 6 00 MG 02/28/2020 12:00:00 AM EDT 1.0 {tablet} active Ga bapentin 600 MG eCW1 ([facility]) 24 HR Bupropion Hydrochloride 150 MG Ext ended Release Oral Tablet [Wellbutrin] Wellbutrin XL 150 MG Wellbutrin XL 150 MG 02/28/2020 12:00:00 AM EDT 1.0 {tablet_in_the_morning} active Wellbutr in XL 150 MG eCW1 ([facility]) gabapentin 600 MG Oral Tablet Gabapentin 600 MG Gabapentin 6 00 MG 02/28/2020 12:00:00 AM EDT 1.0 {tablet} active Ga bapentin 600 MG eCW1 ([facility]) Amoxicillin 500 MG Oral Capsule Amoxicillin 500 MG 02/28/2020 12:00 :00 AM EDT suspended Amoxicillin 500 MG eCW 1 ([facility]) gabapentin 600 MG Oral Tablet Gabapentin 600 MG Gabapentin 6 00 MG 02/28/2020 12:00:00 AM EDT 1.0 {tablet} active Ga bapentin 600 MG eCW1 ([facility]) Amoxicillin 500 MG Oral Capsule Amoxicillin 500 MG 02/28/2020 12:00 :00 AM EDT suspended Amoxicillin 500 MG eCW 1 ([facility]) 24 HR Bupropion Hydrochloride 150 MG Ext ended Release Oral Tablet [Wellbutrin] Wellbutrin XL 150 MG Wellbutrin XL 150 MG 02/28/2020 12:00:00 AM EDT 1.0 {tablet_in_the_morning} active Wellbutr in XL 150 MG eCW1 ([facility]) Amoxicillin 500 MG Oral Capsule Amoxicillin 500 MG 02/28/2020 12:00 :00 AM EDT active Amoxicillin 500 MG eCW1 ([facility]) Amoxicillin 500 MG Oral Capsule Amoxicillin 500 MG 02/28/2020 12:00 :00 AM EDT suspended Amoxicillin 500 MG eCW 1 ([facility]) Amoxicillin 500 MG Oral Capsule Amoxicillin 500 MG 02/28/2020 12:00 :00 AM EDT suspended Amoxicillin 500 MG eCW 1 ([facility]) Amoxicillin 500 MG Oral Capsule Amoxicillin 500 MG 02/28/2020 12:00 :00 AM EDT active Amoxicillin 500 MG eCW1 ([facility]) gabapentin 600 MG Oral Tablet Gabapentin 600 MG Gabapentin 6 00 MG 02/28/2020 12:00:00 AM EDT 1.0 {tablet} active Ga bapentin 600 MG eCW1 ([facility]) Amoxicillin 500 MG Oral Capsule Amoxicillin 500 MG 02/28/2020 12:00 :00 AM EDT suspended Amoxicillin 500 MG eCW 1 ([facility]) gabapentin 600 MG Oral Tablet Gabapentin 600 MG Gabapentin 6 00 MG 02/28/2020 12:00:00 AM EDT 1.0 {tablet} active Ga bapentin 600 MG eCW1 ([facility]) gabapentin 600 MG Oral Tablet Gabapentin 600 MG Gabapentin 6 00 MG 02/28/2020 12:00:00 AM EDT 1.0 {tablet} active Ga bapentin 600 MG eCW1 ([facility]) gabapentin 600 MG Oral Tablet Gabapentin 600 MG Gabapentin 6 00 MG 02/28/2020 12:00:00 AM EDT 1.0 {tablet} active Ga bapentin 600 MG eCW1 ([facility]) Amoxicillin 500 MG Oral Capsule Amoxicillin 500 MG 02/28/2020 12:00 :00 AM EDT suspended Amoxicillin 500 MG eCW 1 ([facility]) Amoxicillin 500 MG Oral Capsule Amoxicillin 500 MG 02/28/2020 12:00 :00 AM EDT suspended Amoxicillin 500 MG eCW 1 ([facility]) Amoxicillin 500 MG Oral Capsule Amoxicillin 500 MG 02/28/2020 12:00 :00 AM EDT suspended Amoxicillin 500 MG eCW 1 ([facility]) gabapentin 600 MG Oral Tablet Gabapentin 600 MG Gabapentin 6 00 MG 02/28/2020 12:00:00 AM EDT 1.0 {tablet} active Ga bapentin 600 MG eCW1 ([facility]) 24 HR Bupropion Hydrochloride 150 MG Ext ended Release Oral Tablet [Wellbutrin] Wellbutrin XL 150 MG Wellbutrin XL 150 MG 02/28/2020 12:00:00 AM EDT 1.0 {tablet_in_the_morning} active Wellbutr in XL 150 MG eCW1 ([facility]) Amoxicillin 500 MG Oral Capsule Amoxicillin 500 MG 02/28/2020 12:00 :00 AM EDT active Amoxicillin 500 MG eCW1 ([facility]) Methylprednisolone 4 MG Oral Tablet [Medrol] Medrol 12:00:00 AM EDT active MEDENT ( [facility]) Aimovig Aimovig 11/19/2019 12:00:00 AM EDT active MEDENT ([facility]) pregabalin 150 MG Oral Capsule [Lyrica] Lyrica 150 MG Lyrica 150 MG 11/08/2019 12:00:00 AM EDT 1.0 {capsule} active L yrica 150 MG eCW1 ([facility]) pregabalin 150 MG Oral Capsule [Lyrica] Lyrica 150 MG Lyrica 150 MG 11/08/2019 12:00:00 AM EDT 1.0 {capsule} suspended Lyrica 150 MG eCW1 ([facility]) pregabalin 150 MG Oral Capsule [Lyrica] Lyrica 150 MG Lyrica 150 MG 11/08/2019 12:00:00 AM EDT 1.0 {capsule} active L yrica 150 MG eCW1 ([facility]) pregabalin 150 MG Oral Capsule [Lyrica] Lyrica 150 MG Lyrica 150 MG 11/08/2019 12:00:00 AM EDT 1.0 {capsule} active L yrica 150 MG eCW1 ([facility]) pregabalin 150 MG Oral Capsule [Lyrica] Lyrica 150 MG Lyrica 150 MG 11/08/2019 12:00:00 AM EDT 1.0 {capsule} active L yrica 150 MG eCW1 ([facility]) pregabalin 150 MG Oral Capsule [Lyrica] Lyrica 150 MG Lyrica 150 MG 11/08/2019 12:00:00 AM EDT 1.0 {capsule} active L yrica 150 MG eCW1 ([facility]) Prednisone 20 MG Oral Tablet predniSONE 20 MG Oral Tab let (DELTASONE) predniSONE 20 MG Oral Tablet (DELTASONE) 10/31/2019 12:00:00 AM EDT [facility] Prednisone 20 MG Oral Tablet Prednisone 10/30/2019 12:00:00 AM EDT completed MEDENT ([facility]) pregabalin 100 MG Oral Capsule Pregabalin 100 MG Oral Capsule (LYRICA) Pregabalin 100 MG Oral Capsule (LYRICA) 10/08/2019 12:00:00 AM EDT 15 0 mg aborted [address] [facility] pregabalin 100 MG Oral Capsule [Lyrica] Lyrica 100 MG Lyrica 100 MG 10/08/2019 12:00:00 AM EDT active 1 capsul e eCW1 ([facility]) pregabalin 100 MG Oral Capsule [Lyrica] Lyrica 100 MG Lyrica 100 MG 10/08/2019 12:00:00 AM EDT 1.0 {capsule} active L yrica 100 MG eCW1 ([facility]) pregabalin 100 MG Oral Capsule [Lyrica] Lyrica 100 MG Lyrica 100 MG 10/08/2019 12:00:00 AM EDT 1.0 {capsule} active L yrica 100 MG eCW1 ([facility]) Triamcinolone Acetonide 1 MG/ML Topical Cream Triamcin olone Acetonide 0.1 % Triamcinolone Acetonide 0.1 % 09/09/2019 12:00:00 AM EDT 1.0 {appli cation} active Triamcinolone Acetonide 0 .1 % eCW1 ([facility]) Triamcinolone Acetonide 1 MG/ML Topical Cream Triamcin olone Acetonide 0.1 % Triamcinolone Acetonide 0.1 % 09/09/2019 12:00:00 AM EDT active 1 application eCW1 ([facility]) Triamcinolone Acetonide 1 MG/ML Topical Cream Triamcin olone Acetonide 0.1 % Triamcinolone Acetonide 0.1 % 09/09/2019 12:00:00 AM EDT 1.0 {appli cation} active Triamcinolone Acetonide 0 .1 % eCW1 ([facility]) Triamcinolone Acetonide 1 MG/ML Topical Cream Triamcin olone Acetonide 0.1 % Triamcinolone Acetonide 0.1 % 09/09/2019 12:00:00 AM EDT 1.0 {appli cation} active Triamcinolone Acetonide 0 .1 % eCW1 ([facility]) Triamcinolone Acetonide 1 MG/ML Topical Cream Triamcin olone Acetonide 0.1 % Triamcinolone Acetonide 0.1 % 09/09/2019 12:00:00 AM EDT 1.0 {appli cation} active Triamcinolone Acetonide 0 .1 % eCW1 ([facility]) Triamcinolone Acetonide 1 MG/ML Topical Cream Triamcin olone Acetonide 0.1 % Triamcinolone Acetonide 0.1 % 09/09/2019 12:00:00 AM EDT 1.0 {appli cation} active Triamcinolone Acetonide 0 .1 % eCW1 ([facility]) Triamcinolone Acetonide 1 MG/ML Topical Cream Triamcin olone Acetonide 0.1 % Triamcinolone Acetonide 0.1 % 09/09/2019 12:00:00 AM EDT 1.0 {appli cation} active Triamcinolone Acetonide 0 .1 % eCW1 ([facility]) Triamcinolone Acetonide 1 MG/ML Topical Cream Triamcin olone Acetonide 0.1 % Triamcinolone Acetonide 0.1 % 09/09/2019 12:00:00 AM EDT 1.0 {appli cation} active Triamcinolone Acetonide 0 .1 % eCW1 ([facility]) Triamcinolone Acetonide 1 MG/ML Topical Cream Triamcin olone Acetonide 0.1 % Triamcinolone Acetonide 0.1 % 09/09/2019 12:00:00 AM EDT 1.0 {appli cation} active Triamcinolone Acetonide 0 .1 % eCW1 ([facility]) Triamcinolone Acetonide 1 MG/ML Topical Cream Triamcin olone Acetonide 0.1 % Triamcinolone Acetonide 0.1 % 09/09/2019 12:00:00 AM EDT 1.0 {appli cation} active Triamcinolone Acetonide 0 .1 % eCW1 ([facility]) Triamcinolone Acetonide 1 MG/ML Topical Cream Triamcin olone Acetonide 0.1 % Triamcinolone Acetonide 0.1 % 09/09/2019 12:00:00 AM EDT 1.0 {appli cation} active Triamcinolone Acetonide 0 .1 % eCW1 ([facility]) Triamcinolone Acetonide 1 MG/ML Topical Cream Triamcin olone Acetonide 0.1 % Triamcinolone Acetonide 0.1 % 09/09/2019 12:00:00 AM EDT 1.0 {appli cation} active Triamcinolone Acetonide 0 .1 % eCW1 ([facility]) Triamcinolone Acetonide 1 MG/ML Topical Cream Triamcin olone Acetonide 0.1 % Triamcinolone Acetonide 0.1 % 09/09/2019 12:00:00 AM EDT 1.0 {appli cation} active Triamcinolone Acetonide 0 .1 % eCW1 ([facility]) Triamcinolone Acetonide 1 MG/ML Topical Cream Triamcin olone Acetonide 0.1 % Triamcinolone Acetonide 0.1 % 09/09/2019 12:00:00 AM EDT 1.0 {appli cation} active Triamcinolone Acetonide 0 .1 % eCW1 ([facility]) Triamcinolone Acetonide 1 MG/ML Topical Cream Triamcin olone Acetonide 0.1 % Triamcinolone Acetonide 0.1 % 09/09/2019 12:00:00 AM EDT 1.0 {appli cation} active Triamcinolone Acetonide 0 .1 % eCW1 ([facility]) Triamcinolone Acetonide 1 MG/ML Topical Cream Triamcin olone Acetonide 0.1 % Triamcinolone Acetonide 0.1 % 09/09/2019 12:00:00 AM EDT 1.0 {appli cation} active Triamcinolone Acetonide 0 .1 % eCW1 ([facility]) pregabalin 75 MG Oral Capsule [Lyrica] Lyrica 75 MG Lyrica 7 5 MG 09/09/2019 12:00:00 AM EDT active 1 capsul e eCW1 ([facility]) Triamcinolone Acetonide 1 MG/ML Topical Cream Triamcin olone Acetonide 0.1 % Triamcinolone Acetonide 0.1 % 09/09/2019 12:00:00 AM EDT 1.0 {appli cation} active Triamcinolone Acetonide 0 .1 % eCW1 ([facility]) Triamcinolone Acetonide 1 MG/ML Topical Cream Triamcin olone Acetonide 0.1 % Triamcinolone Acetonide 0.1 % 09/09/2019 12:00:00 AM EDT active 1 application eCW1 ([facility]) Triamcinolone Acetonide 1 MG/ML Topical Cream Triamcin olone Acetonide 0.1 % Triamcinolone Acetonide 0.1 % 09/09/2019 12:00:00 AM EDT 1.0 {appli cation} active Triamcinolone Acetonide 0 .1 % eCW1 ([facility]) Triamcinolone Acetonide 1 MG/ML Topical Cream Triamcin olone Acetonide 0.1 % Triamcinolone Acetonide 0.1 % 09/09/2019 12:00:00 AM EDT 1.0 {appli cation} active Triamcinolone Acetonide 0 .1 % eCW1 ([facility]) Triamcinolone Acetonide 1 MG/ML Topical Cream Triamcin olone Acetonide 0.1 % Triamcinolone Acetonide 0.1 % 09/09/2019 12:00:00 AM EDT 1.0 {appli cation} active Triamcinolone Acetonide 0 .1 % eCW1 ([facility]) Triamcinolone Acetonide 1 MG/ML Topical Cream Triamcin olone Acetonide 0.1 % Triamcinolone Acetonide 0.1 % 09/09/2019 12:00:00 AM EDT 1.0 {appli cation} active Triamcinolone Acetonide 0 .1 % eCW1 ([facility]) Triamcinolone Acetonide 1 MG/ML Topical Cream Triamcin olone Acetonide 0.1 % Triamcinolone Acetonide 0.1 % 09/09/2019 12:00:00 AM EDT 1.0 {appli cation} active Triamcinolone Acetonide 0 .1 % eCW1 ([facility]) Triamcinolone Acetonide 1 MG/ML Topical Cream Triamcin olone Acetonide 0.1 % Triamcinolone Acetonide 0.1 % 09/09/2019 12:00:00 AM EDT 1.0 {appli cation} active Triamcinolone Acetonide 0 .1 % eCW1 ([facility]) Triamcinolone Acetonide 1 MG/ML Topical Cream Triamcin olone Acetonide 0.1 % Triamcinolone Acetonide 0.1 % 09/09/2019 12:00:00 AM EDT 1.0 {appli cation} active Triamcinolone Acetonide 0 .1 % eCW1 ([facility]) Triamcinolone Acetonide 1 MG/ML Topical Cream Triamcin olone Acetonide 0.1 % Triamcinolone Acetonide 0.1 % 09/09/2019 12:00:00 AM EDT 1.0 {appli cation} active Triamcinolone Acetonide 0 .1 % eCW1 ([facility]) Triamcinolone Acetonide 1 MG/ML Topical Cream Triamcin olone Acetonide 0.1 % Triamcinolone Acetonide 0.1 % 09/09/2019 12:00:00 AM EDT 1.0 {appli cation} active Triamcinolone Acetonide 0 .1 % eCW1 ([facility]) Triamcinolone Acetonide 1 MG/ML Topical Cream Triamcin olone Acetonide 0.1 % Triamcinolone Acetonide 0.1 % 09/09/2019 12:00:00 AM EDT 1.0 {appli cation} active Triamcinolone Acetonide 0 .1 % eCW1 ([facility]) Triamcinolone Acetonide 1 MG/ML Topical Cream Triamcin olone Acetonide 0.1 % Triamcinolone Acetonide 0.1 % 09/09/2019 12:00:00 AM EDT 1.0 {appli cation} active Triamcinolone Acetonide 0 .1 % eCW1 ([facility]) Triamcinolone Acetonide 1 MG/ML Topical Cream Triamcin olone Acetonide 0.1 % Triamcinolone Acetonide 0.1 % 09/09/2019 12:00:00 AM EDT 1.0 {appli cation} active Triamcinolone Acetonide 0 .1 % eCW1 ([facility]) Triamcinolone Acetonide 1 MG/ML Topical Cream Triamcin olone Acetonide 0.1 % Triamcinolone Acetonide 0.1 % 09/09/2019 12:00:00 AM EDT 1.0 {appli cation} active Triamcinolone Acetonide 0 .1 % eCW1 ([facility]) Triamcinolone Acetonide 1 MG/ML Topical Cream Triamcin olone Acetonide 0.1 % Triamcinolone Acetonide 0.1 % 09/09/2019 12:00:00 AM EDT 1.0 {appli cation} active Triamcinolone Acetonide 0 .1 % eCW1 ([facility]) Triamcinolone Acetonide 1 MG/ML Topical Cream Triamcin olone Acetonide 0.1 % Triamcinolone Acetonide 0.1 % 09/09/2019 12:00:00 AM EDT 1.0 {appli cation} active Triamcinolone Acetonide 0 .1 % eCW1 ([facility]) Triamcinolone Acetonide 1 MG/ML Topical Cream Triamcin olone Acetonide 0.1 % Triamcinolone Acetonide 0.1 % 09/09/2019 12:00:00 AM EDT 1.0 {appli cation} active Triamcinolone Acetonide 0 .1 % eCW1 ([facility]) Triamcinolone Acetonide 1 MG/ML Topical Cream Triamcin olone Acetonide 0.1 % Triamcinolone Acetonide 0.1 % 09/09/2019 12:00:00 AM EDT 1.0 {appli cation} active Triamcinolone Acetonide 0 .1 % eCW1 ([facility]) Triamcinolone Acetonide 1 MG/ML Topical Cream Triamcin olone Acetonide 0.1 % Triamcinolone Acetonide 0.1 % 09/09/2019 12:00:00 AM EDT 1.0 {appli cation} active Triamcinolone Acetonide 0 .1 % eCW1 ([facility]) gabapentin 300 MG Oral Capsule Gabapentin 300 MG Oral Capsule (NEURONTIN) Gabapentin 300 MG Oral Capsule (NEURONTIN) 08/30/2019 12:00:00 AM EDT [facility] methylPREDNISolone 4 MG Oral Tablet Therapy Pack (MEDROL DOS EPACK) 2908-0107-06 07/18/2019 12:00:00 AM EST [facility] Acetaminophen 325 MG / Oxycodone Hydrochloride 5 MG Or al Tablet Oxycodone-Acetaminophen 07/17/2019 12:00:00 AM EST completed MEDENT ([facility] ) duloxetine 60 MG Delayed Release Oral Capsule [Cymbalt a] Cymbalta 60 MG Cymbalta 60 MG 07/16/2019 12:00:00 AM EST 1.0 {capsule} acti ve Cymbalta 60 MG eCW1 ([facility]) duloxetine 60 MG Delayed Release Oral Capsule [Cymbalt a] Cymbalta 60 MG Cymbalta 60 MG 07/16/2019 12:00:00 AM EST 1.0 {capsule} acti ve Cymbalta 60 MG eCW1 ([facility]) duloxetine 60 MG Delayed Release Oral Capsule [Cymbalt a] Cymbalta 60 MG Cymbalta 60 MG 07/16/2019 12:00:00 AM EST 1.0 {capsule} acti ve Cymbalta 60 MG eCW1 ([facility]) duloxetine 60 MG Delayed Release Oral Capsule [Cymbalt a] Cymbalta 60 MG Cymbalta 60 MG 07/16/2019 12:00:00 AM EST 1.0 {capsule} acti ve Cymbalta 60 MG eCW1 ([facility]) duloxetine 60 MG Delayed Release Oral Capsule [Cymbalt a] Cymbalta 60 MG Cymbalta 60 MG 07/16/2019 12:00:00 AM EST 1.0 {capsule} acti ve Cymbalta 60 MG eCW1 ([facility]) duloxetine 60 MG Delayed Release Oral Capsule [Cymbalt a] Cymbalta 60 MG Cymbalta 60 MG 07/16/2019 12:00:00 AM EST 1.0 {capsule} acti ve Cymbalta 60 MG eCW1 ([facility]) duloxetine 60 MG Delayed Release Oral Capsule [Cymbalt a] Cymbalta 60 MG Cymbalta 60 MG 07/16/2019 12:00:00 AM EST 1.0 {capsule} acti ve Cymbalta 60 MG eCW1 ([facility]) duloxetine 60 MG Delayed Release Oral Capsule [Cymbalt a] Cymbalta 60 MG Cymbalta 60 MG 07/16/2019 12:00:00 AM EST active Cymbalta 60 MG eCW1 ([facility]) duloxetine 60 MG Delayed Release Oral Capsule [Cymbalt a] Cymbalta 60 MG Cymbalta 60 MG 07/16/2019 12:00:00 AM EST 1.0 {capsule} acti ve Cymbalta 60 MG eCW1 ([facility]) duloxetine 60 MG Delayed Release Oral Capsule [Cymbalt a] Cymbalta 60 MG Cymbalta 60 MG 07/16/2019 12:00:00 AM EST 1.0 {capsule} acti ve Cymbalta 60 MG eCW1 ([facility]) duloxetine 60 MG Delayed Release Oral Capsule [Cymbalt a] Cymbalta 60 MG Cymbalta 60 MG 07/16/2019 12:00:00 AM EST 1.0 {capsule} acti ve Cymbalta 60 MG eCW1 ([facility]) duloxetine 60 MG Delayed Release Oral Capsule [Cymbalt a] Cymbalta 60 MG Cymbalta 60 MG 07/16/2019 12:00:00 AM EST 1.0 {capsule} acti ve Cymbalta 60 MG eCW1 ([facility]) duloxetine 60 MG Delayed Release Oral Capsule [Cymbalt a] Cymbalta 60 MG Cymbalta 60 MG 07/16/2019 12:00:00 AM EST 1.0 {capsule} acti ve Cymbalta 60 MG eCW1 ([facility]) duloxetine 60 MG Delayed Release Oral Capsule [Cymbalt a] Cymbalta 60 MG Cymbalta 60 MG 07/16/2019 12:00:00 AM EST 1.0 {capsule} acti ve Cymbalta 60 MG eCW1 ([facility]) duloxetine 60 MG Delayed Release Oral Capsule [Cymbalt a] Cymbalta 60 MG Cymbalta 60 MG 07/16/2019 12:00:00 AM EST 1.0 {capsule} acti ve Cymbalta 60 MG eCW1 ([facility]) duloxetine 60 MG Delayed Release Oral Capsule [Cymbalt a] Cymbalta 60 MG Cymbalta 60 MG 07/16/2019 12:00:00 AM EST 1.0 {capsule} acti ve Cymbalta 60 MG eCW1 ([facility]) duloxetine 60 MG Delayed Release Oral Capsule [Cymbalt a] Cymbalta 60 MG Cymbalta 60 MG 07/16/2019 12:00:00 AM EST 1.0 {capsule} acti ve Cymbalta 60 MG eCW1 ([facility]) duloxetine 60 MG Delayed Release Oral Capsule [Cymbalt a] Cymbalta 60 MG Cymbalta 60 MG 07/16/2019 12:00:00 AM EST active TAKE ONE CAPSULE BY MOUTH AT BEDTIME eCW1 ([facility]) duloxetine 60 MG Delayed Release Oral Capsule [Cymbalt a] Cymbalta 60 MG Cymbalta 60 MG 07/16/2019 12:00:00 AM EST 1.0 {capsule} acti ve Cymbalta 60 MG eCW1 ([facility]) duloxetine 60 MG Delayed Release Oral Capsule [Cymbalt a] Cymbalta 60 MG Cymbalta 60 MG 07/16/2019 12:00:00 AM EST 1.0 {capsule} acti ve Cymbalta 60 MG eCW1 ([facility]) duloxetine 60 MG Delayed Release Oral Capsule [Cymbalt a] Cymbalta 60 MG Cymbalta 60 MG 07/16/2019 12:00:00 AM EST 1.0 {capsule} acti ve Cymbalta 60 MG eCW1 ([facility]) duloxetine 60 MG Delayed Release Oral Capsule [Cymbalt a] Cymbalta 60 MG Cymbalta 60 MG 07/16/2019 12:00:00 AM EST 1.0 {capsule} acti ve Cymbalta 60 MG eCW1 ([facility]) duloxetine 60 MG Delayed Release Oral Capsule [Cymbalt a] Cymbalta 60 MG Cymbalta 60 MG 07/16/2019 12:00:00 AM EST active TAKE ONE CAPSULE BY MOUTH AT BEDTIME eCW1 ([facility]) duloxetine 60 MG Delayed Release Oral Capsule [Cymbalt a] Cymbalta 60 MG Cymbalta 60 MG 07/16/2019 12:00:00 AM EST 1.0 {capsule} acti ve Cymbalta 60 MG eCW1 ([facility]) duloxetine 60 MG Delayed Release Oral Capsule [Cymbalt a] Cymbalta 60 MG Cymbalta 60 MG 07/16/2019 12:00:00 AM EST 1.0 {capsule} acti ve Cymbalta 60 MG eCW1 ([facility]) duloxetine 60 MG Delayed Release Oral Capsule [Cymbalt a] Cymbalta 60 MG Cymbalta 60 MG 07/16/2019 12:00:00 AM EST 1.0 {capsule} acti ve Cymbalta 60 MG eCW1 ([facility]) duloxetine 60 MG Delayed Release Oral Capsule [Cymbalt a] Cymbalta 60 MG Cymbalta 60 MG 07/16/2019 12:00:00 AM EST 1.0 {capsule} acti ve Cymbalta 60 MG eCW1 ([facility]) duloxetine 60 MG Delayed Release Oral Capsule [Cymbalt a] Cymbalta 60 MG Cymbalta 60 MG 07/16/2019 12:00:00 AM EST active Cymbalta 60 MG eCW1 ([facility]) duloxetine 60 MG Delayed Release Oral Capsule [Cymbalt a] Cymbalta 60 MG Cymbalta 60 MG 07/16/2019 12:00:00 AM EST 1.0 {capsule} acti ve Cymbalta 60 MG eCW1 ([facility]) duloxetine 60 MG Delayed Release Oral Capsule [Cymbalt a] Cymbalta 60 MG Cymbalta 60 MG 07/16/2019 12:00:00 AM EST 1.0 {capsule} acti ve Cymbalta 60 MG eCW1 ([facility]) duloxetine 60 MG Delayed Release Oral Capsule [Cymbalt a] Cymbalta 60 MG Cymbalta 60 MG 07/16/2019 12:00:00 AM EST 1.0 {capsule} acti ve Cymbalta 60 MG eCW1 ([facility]) duloxetine 60 MG Delayed Release Oral Capsule [Cymbalt a] Cymbalta 60 MG Cymbalta 60 MG 07/16/2019 12:00:00 AM EST active TAKE ONE CAPSULE BY MOUTH AT BEDTIME eCW1 ([facility]) duloxetine 60 MG Delayed Release Oral Capsule [Cymbalt a] Cymbalta 60 MG Cymbalta 60 MG 07/16/2019 12:00:00 AM EST 1.0 {capsule} acti ve Cymbalta 60 MG eCW1 ([facility]) duloxetine 60 MG Delayed Release Oral Capsule [Cymbalt a] Cymbalta 60 MG Cymbalta 60 MG 07/16/2019 12:00:00 AM EST 1.0 {capsule} acti ve Cymbalta 60 MG eCW1 ([facility]) duloxetine 60 MG Delayed Release Oral Capsule [Cymbalt a] Cymbalta 60 MG Cymbalta 60 MG 07/16/2019 12:00:00 AM EST 1.0 {capsule} acti ve Cymbalta 60 MG eCW1 ([facility]) duloxetine 60 MG Delayed Release Oral Capsule [Cymbalt a] Cymbalta 60 MG Cymbalta 60 MG 07/16/2019 12:00:00 AM EST 1.0 {capsule} acti ve Cymbalta 60 MG eCW1 ([facility]) duloxetine 60 MG Delayed Release Oral Capsule [Cymbalt a] Cymbalta 60 MG Cymbalta 60 MG 07/16/2019 12:00:00 AM EST 1.0 {capsule} acti ve Cymbalta 60 MG eCW1 ([facility]) Phenazopyridine hydrochloride 200 MG Del ayed Release Oral Tablet Phenazopyridine HCl 200 MG Oral Tablet (PYRIDIUM) Phenazopyridine HCl 200 MG Oral Tablet (PYRIDIUM) 07/09/2019 12:00:00 AM EST aborted TAKE 1 TABLET BY MOUTH EVERY [address] [facility] Hydrochlorothiazide 12.5 MG / Lisinopril 10 MG Oral Tablet Lisinopril- hydroCHLOROthiazide 10-12.5 MG Oral Tablet (ZESTORETIC) Lisinopril- hydroCHLOROthiazide 10-12.5 MG Oral Tablet (ZESTORETIC) 06/20/2019 12:00:00 AM EST 1 {tbl} Oral active Take 1 tablet by mouth daily [facility] [facility] ben[facility] 100 MG Oral Capsule [Tessalon Perles] Ayanna travis Perles 100 MG Tessalon Perles 100 MG 05/17/2019 12:00:00 AM EST active 1 capsule as needed eCW1 ([facility]) benzonatate 100 MG Oral Capsule [Tessalon Perles] Ayanna travis Perles 100 MG Tessalon Perles 100 MG 05/17/2019 12:00:00 AM EST active 1 capsule as needed eCW1 ([facility]) Amoxicillin 500 MG Oral Capsule Amoxicillin 500 MG Ora l Capsule (AMOXIL) Amoxicillin 500 MG Oral Capsule (AMOXIL) 03/22/2019 12:00:00 AM EST aborted as needed [facility] Cholecalciferol 1999 UNT Oral Capsule Vitamin D3 50 MC G (1999) Oral Capsule Vitamin D3 50 MCG (1999) Oral Capsule 01/31/2019 12:00:00 AM EDT Oral aborted Take by mouth daily [facility] tizanidine 4 MG Oral Tablet tiZANidine HCl 4 MG Oral T ablet (ZANAFLEX) tiZANidine HCl 4 MG Oral Tablet (ZANAFLEX) 12/14/2018 12:00:00 AM EDT aborted [facility] Naproxen 500 MG Oral Tablet Naproxen 500 MG Oral Table t (NAPROSYN) Naproxen 500 MG Oral Tablet (NAPROSYN) 12/12/2018 12:00:[address] [facility] 24 HR Bupropion Hydrochloride 300 MG Ext ended Release Oral Tablet buPROPion (WELLBUTRIN XL) 300 MG 24 hr tablet buPROPion (WELLBUTRIN XL) 300 MG 24 hr tablet 05/03/2018 12:00:00 AM EST 300 mg Oral aborted Take 300 mg by mouth every morning With 150 mg tablet. TNZ=[address] [facility] potassium citrate 5 MEQ Extended Release Oral Tablet Potassium Citrate ER 5 MEQ (540 MG) Oral Tablet Extended Release (UROCIT-K) Potassium Citrate ER 5 MEQ (540 MG) Oral Tablet Extended Release (UROCIT-K) 11/08/2010 12:00:00 AM EDT Oral aborted Take by mouth [facility] Hydrochlorothiazide 12.5 MG Oral Tablet hydroCHLOROthiazide 12.5 MG Oral Tablet (HYDRODIURIL) hydroCHLOROthiazide 12.5 MG Oral Tablet (HYDRODIURIL) 11/08/2010 12:00:00 AM EDT Oral aborted Take by mouth [facility] Acetaminophen 325 MG / Oxycodone Hydroch loride 5 MG Oral Tablet oxycodone- acetaminophen (PERCOCET) 5-325 MG per tablet oxycodone-acetaminophen (PERCOCET) 5-325 MG per tablet 1 {tbl} Oral aborted Take 1 tablet by mouth every 4 (four) hours as needed for Pain [facility] clopidogrel 75 MG Oral Tablet clopidogrel (PLAVIX) 75 MG tablet clopidogrel (PLAVIX) 75 MG tablet 75 mg Oral aborted Take 75 mg by mouth every evening [facility] Mupirocin 0.02 MG/MG Topical Ointment mupirocin (BACTR OBAN) 2 % ointment mupirocin (BACTROBAN) 2 % ointment Topical ab orted Apply topically Three times daily [facility] Ranitidine 150 MG Oral Tablet ranitidine (ZANTAC) 150 MG tablet ranitidine (ZANTAC) 150 MG tablet 150 mg Oral aborted Take 150 mg by mouth Two times daily as needed for Heartburn [facility] Tamsulosin hydrochloride 0.4 MG Oral Capsule tamsulosi n (FLOMAX) 0.4 MG capsule tamsulosin (FLOMAX) 0.4 MG capsule 0.4 mg Oral abo rted Take 0.[address] [facility] Aspirin 81 MG Delayed Release Oral Tablet aspirin 81 M G EC tablet aspirin 81 MG EC tablet 81 mg Oral aborted Take [address] [facility] buspirone hydrochloride 30 MG Oral Tablet busPIRone (B USPAR) 30 MG tablet busPIRone (BUSPAR) 30 MG tablet 30 mg Oral aborte d Take 30 mg by mouth Two Times Daily [facility] Folic Acid 1 MG Oral Tablet folic acid (FOLVITE) 1 MG tablet folic acid (FOLVITE) 1 MG tablet 1 mg Oral aborted Ta ke 1 mg by mouth daily. [facility] Insurance Providers Payer name Policy type / Coverage type Policy ID Covered libertarian ID Covered libertarian's relationship to encinas Policy [employer] Plan Information EMEDNY [id number] SP [id number] [facility] [id number] SP [id number] [facility] Commercial Insurance Co. [id number] Self [id number] [facility] MEDICARE [id number] Nohemy [id number] MEDICAID [id number] Nohemy [id number] UHC UNITED MEDICARE DUAL G [id number] Self [id number] MEDICAID [id number] Self [id number] [facility](MCAID) O [id number] S [id number] MEDICAID M [id number] S [id number] [facility] [employer] P [id number] S [id number] Medicaid S [id number] S [id number] [facility] [employer] P [id number] S [id number] [facility] [id number] SP [id number] [facility] [id number] SP [id number] MEDICARE [id number] SP [id number] A [facility] UNITED MEDICARE DUAL G [id number] Self [id number] [facility] Comm Plan Medicare F [id number] SELF [id number] Medicaid [facility] S D [id number] SELF [id number] MEDICAID [id number] SP [id number] MEDICARE [id number] SP [id number] MEDICAID [id number] SP [id number] [facility] [id number] SP [id number] MEDICARE [id number] Nohemy [id number] A MEDICARE [id number] Nohemy [id number] A [facility] P [id number] S [id number] Medicare S [id number] S [id number] ANSI-Not a Secondary Insurance [id number] ANSI-Medicaid [id number] ANSI-Medicare Part B [id number] ANSI-Not a Secondary Insurance [id number] ANSI-Medicaid [id number] ANSI-Medicare Part B [id number] ANSI-Medicaid [id number] ANSI-Not a Secondary Insurance [id number] ANSI-Medicare Part B [id number] ANSI-Not a Secondary Insurance [id number] ANSI-Medicaid [id number] ANSI-Medicare Part B [id number] ANSI-Medicaid [id number] ANSI-Not a Secondary Insurance [id number] ANSI-Medicare Part B [id number] ANSI-Medicare Part B [id number] ANSI-Medicaid [id number] ANSI-Not a Secondary Insurance [id number] ANSI-Medicaid [id number] ANSI-Medicare Part B [id number] ANSI-Not a Secondary Insurance [id number] ANSI-Medicaid [id number] ANSI-Medicare Part B [id number] ANSI-Not a Secondary Insurance [id number] ANSI-Not a Secondary Insurance [id number] ANSI-Medicare Part B [id number] ANSI-Medicaid [id number] [facility] [id number] ANSI-Medicaid [id number] ANSI-Medicare Part B [id number] ANSI-Not a Secondary Insurance [id number] ANSI-Not a Secondary Insurance [id number] ANSI-Medicaid [id number] ANSI-Medicare Part B [id number] ANSI-Medicaid [id number] ANSI-Not a Secondary Insurance [id number] ANSI-Medicare Part B [id number] MEDICARE COMPLETE [id number] SP [id number] [facility] [id number] SP [id number] ANSI-Not a Secondary Insurance [id number] ANSI-Medicaid [id number] ANSI-Medicare Part B [id number] [facility] MEDICARE DUAL G [id number] Self [id number] ANSI-Medicaid [id number] ANSI-Medicare Part B [id number] ANSI-Not a Secondary Insurance [id number] [facility] MEDICARE DUAL G [id number] Self [id number] MEDICARE A [id number] Self [id number] [facility] MEDICARE DUAL G [id number] Self [id number] [facility] [id number] Self [id number] ANSI-Medicaid [id number] ANSI-Medicare Part B [id number] ANSI-Not a Secondary Insurance [id number] ANSI-Medicaid [id number] ANSI-Medicare Part B [id number] ANSI-Medicaid [id number] ANSI-Medicare Part B [id number] Medicaid S [id number] S [id number] ANSI-Medicare Part B [id number] ANSI-Medicaid [id number] ANSI-Medicare Part B [id number] ANSI-Medicaid [id number] ANSI-Medicaid [id number] ANSI-Medicare Part B [id number] ANSI-Medicaid [id number] ANSI-Medicare Part B [id number] ANSI-Medicaid [id number] ANSI-Medicare Part B [id number] ANSI-Medicare Part B [id number] ANSI-Medicaid [id number] ANSI-Medicare Part B [id number] ANSI-Medicaid [id number] ANSI-Medicare Part B [id number] ANSI-Medicaid [id number] ANSI-Medicaid [id number] ANSI-Medicare Part B [id number] ANSI-Medicare Part B [id number] ANSI-Medicaid [id number] ANSI-Medicaid [id number] ANSI-Medicare Part B [id number] ANSI-Medicare Part B [id number] ANSI-Medicaid [id number] ANSI-Medicaid [id number] ANSI-Medicare Part B [id number] ANSI-Medicaid [id number] ANSI-Medicare Part B [id number] ANSI-Medicaid [id number] ANSI-Medicare Part B [id number] ANSI-Medicare Part B [id number] ANSI-Medicaid [id number] ANSI-Medicare Part B [id number] ANSI-Medicaid [id number] ANSI-Medicaid [id number] ANSI-Medicare Part B [id number] ANSI-Medicare Part B [id number] ANSI-Medicaid [id number] Medicaid [place] Med[place] Part [place] [id number] Self [id number] Medicare [place]/N[place] Medicare Primary [id number] Self [id number] MEDICARE A [id number] Self [id number] [place] Part [place] [id number] Self [id number] Medicare [place] Medicare Primary [id number] Self [id number] MEDICARE [id number] SP [id number] ANSI-Medicaid [id number] ANSI-Medicare Part B [id number] ANSI-Medicare Part B [id number] ANSI-Medicaid [id number] ANSI-Medicaid [id number] ANSI-Medicare Part B [id number] MEDICAID [id number] SP [id number] MEDICARE [id number] SP [id number] A ANSI-Medicaid [id number] ANSI-Medicare Part B [id number] Medicaid [place] Part B [id number] Self [id number] Medicare Up[place]/[facility] Medicare Primary [id number] Self [id number] MEDICAID [id number] SP [id number] MEDICARE [id number] SP [id number] A MEDICARE C [id number] S [id number] A [facility] PART B C [id number] S [id number] MEDICAID [id number] Nohemy [id number] MEDICARE [id number] Nohemy [id number] A MEDICAID PI PI MEDICARE PI PI Medicare C [id number] SELF [id number] A [facility] [place], [facility] C [id number] S [id number] MEDICAID [id number] SP [id number] MEDICAID [id number] SP [id number] [facility] C [id number] S [id number] MEDICAID [id number] SP [id number] MEDICARE [id number] SP [id number] A MEDICAID [id number] SP [id number] Medicaid Dental O [id number] S [id number] Self Pay S UNAVAILABLE S UNA[place]ILA BLE MEDICARE [id number] SP [id number] A [facility]hi FHP-(DO Not Use) Medig[place] Part B Self [place] Self MEDICAID [id number] SP [id number] MEDICAID [id number] SP [id number] MEDICARE A [id number] Self [id number] A Medicare [place] Gov't Servi Medicare Primary Self [place] [employer] *NOTFORTODAYSVISIT* S P *NOTFORTODAYSVISIT* BCBS [facility] DIV [id number] SP [id number] [facility] [id number] [facility] [id number] [facility] [employer] PLUS [id number] SP [id number] [employer] [facility] [id number] SP [id number] [facility] [id number] SP [id number] Problems, Conditions, and Diagnoses Code Display Name Description Problem Type Effective Dates Data Source(s) M47.816 [id number] Spondylosis without myelopathy or radiculopathy, lumbar region Problem 05/27/2020 12:00:00 AM EST eCW1 ([facility]) M47.817 [id number] Spondylosis without myelopathy or radiculopathy, lumbosacral region Problem 05/27/2020 12:00:00 AM EST eCW1 ([facility]) R32 Urinary incontinence Urinary incontinence Problem 05/22/2020 12:00:00 AM EST eCW1 ([facility]) K90.9 [id number] Intestinal malabsorption, unspecified typ e Problem 05/21/2020 12:00:00 AM EST eCW1 ([facility]) M54.41 [id number] Lumbago with sciatica, right side Problem 11/08/2019 12:00:00 AM EDT eCW1 ([facility]) F33.1 [id number] Major depressive disorder, recurrent, mod erate Problem 10/03/2019 12:00:00 AM EDT eCW1 ([facility]) F41.1 [id number] Generalized anxiety disorder Problem 020 12:00:00 AM EDT eCW1 ([facility]) F43.10 79379395 Post-traumatic stress disorder, unspecifi ed Problem 10/03/2019 12:00:00 AM EDT eCW1 ([facility]) F43.10 24544663 Post-traumatic stress disorder, unspecifi ed Problem 10/03/2019 12:00:00 AM EDT eCW1 ([facility]) F33.1 [id number] Major depressive disorder, recurrent, mod erate Problem 10/03/2019 12:00:00 AM EDT eCW1 ([facility]) F41.1 79551697 Generalized anxiety disorder Problem 020 12:00:00 AM EDT eCW1 ([facility]) G62.0 4928771 Drug-induced polyneuropathy Problem 09/09/19 12:00:00 AM EDT eCW1 ([facility]) G62.0 4847158 Drug-induced polyneuropathy Problem 09/09/19 12:00:00 AM EDT eCW1 ([facility]) N39.46 [id number] 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 Problem 08/29/2019 12:00:00 AM EDT eCW1 ([facility]) R15.2 66489303 Fecal urgency Problem 08/29/2019 12:00:00 AM EDT eCW1 ([facility]) R15.9 [id number] Full incontinence of feces Problem 08/29/2019 12:00:00 AM EDT eCW1 ([facility]) R32 75956179 Unspecified urinary incontinence Problem 08/29/2019 12:00:00 AM EDT eCW1 ([facility]) M54.31 888073617 Chronic sciatica of right side Problem 08/29/2019 12:00:00 AM EDT eCW1 ([facility]) R15.2 78621592 Fecal urgency Problem 08/29/2019 12:00:00 AM EDT eCW1 ([facility]) R15.9 [id number] Full incontinence of feces Problem 08/29/2019 12:00:00 AM EDT eCW1 ([facility]) R32 17361242 Unspecified urinary incontinence Problem 08/29/2019 12:00:00 AM EDT eCW1 ([facility]) N39.46 788392947 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 Problem 08/29/2019 12:00:00 AM EDT eCW1 ([facility]) M54.31 399853534 Chronic sciatica of right side Problem 08/29/2019 12:00:00 AM EDT eCW1 ([facility]) Z68.44 341896509 Body mass index (BMI) 60.0-69.9, adult Pr oblem 05/14/2019 12:00:00 AM EST [facility] ([facility]) G89.29 74358054 Other chronic pain Problem 05/14/2019 12:00: 00 AM EST [facility] ([facility]) G89.29 76588198 Other chronic pain Problem 05/14/2019 12:00: 00 AM EST [facility] ([facility]) Z68.44 530548122 Body mass index (BMI) 60.0-69.9, adult Pr oblem 05/14/2019 12:00:00 AM EST [facility] ([facility]) I26.99 Other pulmonary embolism without acute c or pulmonale Other pulmonary embolism without acute c Diagnosis 06/26/2020 11:28:32 AM [facility] I73.9 Peripheral vascular disease, unspecified Peripheral vascular disease, unspecified Diagnosis 06/26/2020 11:28:32 AM [facility] Z95.2 Presence of prosthetic heart valve Presence of p rosthetic heart valve Diagnosis 06/26/2020 11:28:32 AM [facility] E66.01 Morbid (severe) obesity due to excess ca lories Morbid (severe) obesity due to excess ca Diagnosis 06/26/2020 11:28:32 AM [facility] G47.30 Sleep apnea, unspecified Sleep apnea, unspecified Diag nosis 06/26/2020 11:28:32 AM [facility] Z01.818 Encounter for other preprocedural examin ation Encounter for other preprocedural examin Diagnosis 06/26/2020 11:28:32 AM [facility] I10 Essential (primary) hypertension Essential (primary) h ypertension Diagnosis 02/05/2020 09:27:18 AM EDT [facility] Surgeries/Procedures Procedure Description Date Indications Data Source(s) Pain Procedure Log 06/11/2020 12:00:00 AM [place] [id number] ([facility]) Medication: Deep[place] Tablet 5mg/325mg Orally (Hydrocodone/Aceta minophen) 05/27/2020 12:00:00 AM EST eCW1 ([facility]) Unclassified drugs 05/27/2020 12:00:00 AM EST eCW1 ([facility]) Medication: [place] Tablet 5mg/325mg Orally (Hydrocodone/Aceta minophen) 03/23/2020 12:00:00 AM EST eCW1 ([facility]) Unclassified drugs 03/23/2020 12:00:00 AM EST eCW1 ([facility]) Saline Lock 03/23/2020 12:00:00 AM EST e CW1 ([facility]) Immunization: Flublok Quadrivalent (18 years & older) 0.5mL IM (Influenza) 02/28/2020 12:00:00 AM EDT eCW1 ([facility]) X-Ray Spine Lumbosacral Complete Inc Bending Views Min Of 6 12/04/2019 12:00:00 AM EDT PATSY ([facility]) SURGERY CASE REQUEST OUTSIDE FACILITY ONLY SURGERY CA SE REQUEST OUTSIDE FACILITY ONLY Routine 2019 11:14 AM EDT Right shoulder pain, unspecified chronicity 2019 03:14 :19 PM EDT Right shoulder pain, unspecified chronicity [facility] Right shoulder pain, unspecified chronic ity Office Visit, Est Pt., Level 4 PC 10/08/2019 12:00:00 AM EDT eCW1 ([facility]) Office Visit, Est Pt., Level 2 FC 10/08/2019 12:00:00 AM EDT eCW1 ([facility]) PSYTX W PT 45 MINUTES 10/04/2019 12:00:00 AM EDT eCW1 ([facility]) PSYCH DIAGNOSTIC EVALUATION 09/17/2019 12:00:00 AM EDT eCW1 ([facility]) NEB/MDI RX INITIAL 05/17/2019 12:00:00 AM EST eCW1 ([facility]) Albuterol, inhalation solution, fda-appr keri final product, non-compounded, administered through dme, unit dose, 1 mg 05/17/2019 12:00:00 AM EST eCW1 ([facility]) Influenza A+B 05/17/2019 12:00:00 AM EST eCW1 ([facility]) Results ID Date Data Source [id number] 06/23/2020 10:30:53 AM EST [facility] Name Value Range Interpretation Code Description Data Amanda rce(s) Supporting Document(s) Progress Note [facility] [id number]/KLXqjZVCcu4IdW[id number] lbm [file] AlBdDHRwEHBwSOY6PhqdD0Z3YVm2UxHeHXVcZw1l [id number]+[id number] ID Date Data Source PT & APTT 06/11/2020 12:00:00 AM EST eCW1 ([facility]) Name Value Range Interpretation Code Description Data Amanda rce(s) Supporting Document(s) 13.5 12.5-14.3 eCW1 ([facility]) 29.4 24.2-38.5 eCW1 ([facility]) 1.01 eCW1 ([facility]) ID Date Data Source Basic Metabolic Profile (BMP) 06/11/2020 12:00:00 AM EST eCW 1 [facility] [facility]) Name Value Range Interpretation Code Description Data Amanda rce(s) Supporting Document(s) 86 70-100 eCW1 ([facility]) 20 7-18 eCW1 ([facility]) > 60.0 >45 eCW1 ([facility]) 0.98 0.55-1.30 eCW1 ([facility]) 4.4 3.5-5.1 eCW1 ([facility]) 143 136-145 eCW1 ([facility]) 105 98-107 eCW1 ([facility]) 9.6 8.8-10.2 eCW1 ([facility]) 32 21-32 eCW1 ([facility]) ID Date Data Source CBC - Complete Blood Count 06/11/2020 12:00:00 AM EST eCW1 ( [facility]) Name Value Range Interpretation Code Description Data Amanda rce(s) Supporting Document(s) 8.8 4.0-10.0 eCW1 ([facility]) 13.6 12.0-15.5 eCW1 ([facility]) 4.71 4.00-5.40 eCW1 ([facility]) 45.0 36.0-47.0 eCW1 ([facility]) 95.5 80.0-96.0 eCW1 ([facility]) 28.9 27.0-33.0 eCW1 ([facility]) 30.2 32.0-36.5 eCW1 ([facility]) 13.7 11.5-14.5 eCW1 ([facility]) 187 150-450 eCW1 ([facility]) ID Date Data Source NT-[id number] 06/11/2020 12:00:00 AM EST eCW1 ([facility]) Name Value Range Interpretation Code Description Data Amanda rce(s) Supporting Document(s) 290 <125 eCW1 ([facility]) ID Date Data Source [id number] 05/22/2020 11:00:00 AM EST [facility] Name Value Range Interpretation Code Description Data Amanda rce(s) Supporting Document(s) SARS coronavirus 2 RNA Not Detected [facility] This lab was ordered by [facility] and reported by [facility]. ID Date Data Source URINE CULTURE 05/22/2020 12:00:00 AM EST eCW1 ([facility]) Name Value Range Interpretation Code Description Data Amanda rce(s) Supporting Document(s) Laboratory studies (set) URINE CULTU RE eCW1 ([facility]) ID Date Data Source UA URINALYSIS 05/22/2020 12:00:00 AM EST eCW1 ([facility]) Name Value Range Interpretation Code Description Data Amanda rce(s) Supporting Document(s) Laboratory studies (set) UA URINALYS IS eCW1 ([facility]) ID Date Data Source [id number] 03/31/2020 02:37:02 PM [facility] Name Value Range Interpretation Code Description Data Amanda rce(s) Supporting Document(s) Progress Note [facility] SDTMMn7qEmIANqFz67/QKHwbZUVkq5WoYUgvVNk4GCnlKAMqR8EnOCA2kT2rEVO6TAvGIeWpTzOoGCX3 lbm [file] AgICAgICAgICAgICAgICAgICAgICAgICAgICAgICAgICAgICAgICAgICAgICAgICAgICAgICAgICAgIC AgICAgICAgICANCiAgICAgICAgICAgICAgICAgICAg ICAgICAgICAgICAgICAgICAgICAgICAgICAgICAgICAgICAgICAgICAgICAgICAgICAgICAgICAgICAg ICAgICAgICAgICAgICAgICAgICANCiAgICAgICAgICAgICAgICAgICAgICAgICAgICAgICAgICAgICAg ICAgICAgICAgICAgICAgICAgICAgICAgICAgICAgIC AgICAgICAgICAgICAgICAgICAgICAgICAgICAgICANCiAgICAgICAgICAgICAgICAgICAgICAgICAgIC AgICAgICAgICAgICAgICAgICAgICAgICAgICAgICAgICAgICAgICAgICAgICAgICAgICAgICAgICAgIC AgICAgICAgICAgICANCiAgICAgICAgICAgICAgICAg ICAgICAgICAgICAgICAgICAgICAgICAgICAgICAgICAgICAgICAgICAgICAgICAgICAgICAgICAgICAg ICAgICAgICAgICAgICAgICAgICAgICANCiAgICAgICAgICAgICAgICAgICAgICAgICAgICAgICAgICAg ICAgICAgICAgICAgICAgICAgICAgICAgICAgICAgIC AgICAgICAgICAgICAgICAgICAgICAgICAgICAgICAgICANCiAgICAgICAgICAgICAgICAgICAgICAgIC AgICAgICAgICAgICAgICAgICAgICAgICAgICAgICAgICAgICAgICAgICAgICAgICAgICAgICAgICAgIC AgICAgICAgICAgICAgICANCiAgICAgICAgICAgICAg ICAgICAgICAgICAgICAgICAgICAgICAgICAgICAgICAgICAgICAgICAgICAgICAgICAgICAgICAgICAg ICAgICAgICAgICAgICAgICAgICAgICAgICANCiAgICAgICAgICAgICAgICAgICAgICAgICAgICAgICAg ICAgICAgICAgICAgICAgICAgICAgICAgICAgICAgIC AgICAgICAgICAgICAgICAgICAgICAgICAgICAgICAgICAgICANCiAgICAgICAgICAgICAgICAgICAgIC AgICAgICAgICAgICAgICAgICAgICAgICAgICAgICAgICAgICAgICAgICAgICAgICAgICAgICAgICAgIC AgICAgICAgICAgICAgICAgICANCjw/vXCnF4qgrARn wsM5V8lcRr9VKl5KAM4mg6BvPYFfYRuvabGwRmcBRrFtXQNvPfdXZrk5XBxpXJ4VgTWcN9VeM7GvSElk IK5FRNZjGRLjdSArMYRsVOJmRaB0KTWyJQbaJY3FlFMfPLanTCIqJSEbFM8XRGJbK824ogDeWG2TCb3U FmYeTF7hpw2SUVriJSVtXxxZXes1PKqqWG4SqFEqlC ZoLNDtOSVQYnFbT0dsm3SiWcKfZNAIMSgpIQ9Le5XmmXYjWEz+Wz4LNW6zb6FzJPtqDDTuJI0sry0MML aMOiEuX0EkcDeqMQUot3ioTPVvNI1ngGAgSPF0QE0dK7LtOaJoOBLqJPNQZqTsuFYwXG9aOi9gVXMmIT UjPlLdFRLKRC9JMCGzJJGttIIjEWUhZMVKFJ7LUDso UQQ1BIAhkuLafSGxEUjoFY3AUAZqlwMnKYxvMKENEVo+Al1PYH2jh1DhSJbvZQGrGY5pav5EEOtQHsUl T6M8mTWvK4M1JAzmFw8TPGRvKYBxJTbdYNGUUOisOD3XBJ6sxiD2XR7KmUByHJPoDPPytHVdICp5B24o kXCgJXkrQR1KUGD+Faby+Hg6JXJFmNCQbHJJaGvEtUT YPXpXrY6WcA1KQo7JxY6NiBG33vQtmtvHrLTwxCZ1DJT8aWFZhPMRZZR1ToSMwwQ4hfrXaZURzMKKFMy IzM29kmDXmJWRoAYF1RRWzWn8LXUPqS4UjxzFbaRzwbqLoVTOwNTVZOC8LJMysfqGroWRouSgyLG94eB jqZN1EMp8COtCkVL9sde2WuPWgIc1OOAHvPi0LAEZl KJOjPWStVQX5ACIzSpRrFFnnCWRoBLBlKYM6WHRfCJNqLR6WIoBzARBeHUjbKEedEXOsKGDjee3BFBAc VKSnAMnaDrOxTVAyENRoYNqgFWTaGOLkAIX9JPSbUJWrOB1XCjYpCWIxGEE9OoCsAMReGPLcfj8HJIRs DYZsRmHxBJJyBBTxJMLmKDkvHXVwEBKiZWj2XYIuER RjEL9PCjNmDVGjQVBuBFUbUZDjLQQcmw5KVLFyBEWeZkM5ZFLsIJZuSFOjUWqdJUSgWEX2EJZnODPzKK BqDC7VYgSwZDSgGOB8UiIfFBYuXRLfer9BQWAzQTWgNUtzGKUsQUKmQGReALshXBBcTCI7UXK6TXJbWO LeFR7UEiFqDGGqTHI2NBVyYUGvCAFtzg2JOLWgGYEa QoL0TPKoUAOwZHSmPMhdPSPcEOZ5ALEwXZZoFNSmZO8ESoOnZCHnJLwhOpozBLUnJAAozz9LYNVzRKXn GvF7MpBrASMvCIYxOKymMZRfYRR1VNT3LECmGHHlXP2ABlQhFLSpUKc5PCGjBDQhCPRnof3WLBKuEBPw EDEtEbFlQQFmAAKxILd5mgJtzRGlWFp1NH3VF0Yehz SaUnBCNw8Fw960ZPZcCEGtDp7UJ3veNx7kLUUlDJRJJv1LUTt0ZKW6XvMzFxYtTYDkVqN1MctgAJa7Xt G3YeO8TOGgLtG+JEi5FnTmNSUwPbOiOCPxEAGpKDAgVqugCysxPnaoPoY3Iq9bUZQUPi6+DQpzdGFydH ibPFIJZaZ0Zsy7FIlcRETZCs3G ID Date Data Source [id number] 04/01/2020 06:22:[address] [facility] Value Range Interpretation Code Description Data Amanda rce(s) Supporting Document(s) Specimen source [Identifier] of Unspecified specimen [facility] SARS-CoV-2 RNA 2019 nCoV Real-Time RT-PCR: NOT DETECTED 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 Patient has symptoms related to [facility] When did you start to experience these symptoms [Date and time] [Phen X] [facility] Patient was hospitalized because of this condition [facility] patient was admitted to ICU for [facility] Patient resides in a congregate care setting [facility] status [facility] ID Date Data Source [id number] 03/31/2020 02:37:00 PM [facility] Name Value Range Interpretation Code Description Data Amanda rce(s) Supporting Document(s) SARS-CoV-2 RNA [facility] This lab was ordered by [facility] and reported by [facility]. ID Date Data Source [id number] 03/31/2020 01:57:00 PM [facility] Name Value Range Interpretation Code Description Data Amanda rce(s) Supporting Document(s) Progress Note [facility] EILUPu1jPgLBAgTq39/ZMEjhUHLtj9FoTSpsNSz0MGzfXUAeY2EuILG2oI1kJEU9EMvVKhKkQhMtLCD3 lbm [file] ICAgICAgICAgICAgICAgICAgICAgICAgICAgICAgIC AgICAgICAgICAgICAgICAgICAgICAgICAgICAgICAgICAgICANCiAgICAgICAgICAgICAgICAgICAgIC AgICAgICAgICAgICAgICAgICAgICAgICAgICAgICAgICAgICAgICAgICAgICAgICAgICAgICAgICAgIC AgICAgICAgICAgICAgICAgICANCiAgICAgICAgICAg ICAgICAgICAgICAgICAgICAgICAgICAgICAgICAgICAgICAgICAgICAgICAgICAgICAgICAgICAgICAg ICAgICAgICAgICAgICAgICAgICAgICAgICAgICANCiAgICAgICAgICAgICAgICAgICAgICAgICAgICAg ICAgICAgICAgICAgICAgICAgICAgICAgICAgICAgIC AgICAgICAgICAgICAgICAgICAgICAgICAgICAgICAgICAgICAgICANCiAgICAgICAgICAgICAgICAgIC AgICAgICAgICAgICAgICAgICAgICAgICAgICAgICAgICAgICAgICAgICAgICAgICAgICAgICAgICAgIC AgICAgICAgICAgICAgICAgICAgICANCiAgICAgICAg ICAgICAgICAgICAgICAgICAgICAgICAgICAgICAgICAgICAgICAgICAgICAgICAgICAgICAgICAgICAg ICAgICAgICAgICAgICAgICAgICAgICAgICAgICAgICANCiAgICAgICAgICAgICAgICAgICAgICAgICAg ICAgICAgICAgICAgICAgICAgICAgICAgICAgICAgIC AgICAgICAgICAgICAgICAgICAgICAgICAgICAgICAgICAgICAgICAgICANCiAgICAgICAgICAgICAgIC AgICAgICAgICAgICAgICAgICAgICAgICAgICAgICAgICAgICAgICAgICAgICAgICAgICAgICAgICAgIC AgICAgICAgICAgICAgICAgICAgICAgICANCiAgICAg ICAgICAgICAgICAgICAgICAgICAgICAgICAgICAgICAgICAgICAgICAgICAgICAgICAgICAgICAgICAg ICAgICAgICAgICAgICAgICAgICAgICAgICAgICAgICAgICANCiAgICAgICAgICAgICAgICAgICAgICAg ICAgICAgICAgICAgICAgICAgICAgICAgICAgICAgIC AgICAgICAgICAgICAgICAgICAgICAgICAgICAgICAgICAgICAgICAgICAgICANCjw/kKHlO4gnzYZbtb D5V9hsSe3LHg8ULW1sv2BxBJXqVVlirfNlAogGOeVnKEUfSxtEMyn5ZQuvUN9PdHZkM6WuO3EsJKgdKG 7NXYBnGVHhtFGuQLFhQYQaFtE3RNKdVKxuWC0YmLGm PEogNATpDKMrQjZwMBZiBBNkKLGmDH3DABGwN581gcMhFr6SYn5DXpNjGA0fxa0RJdNfHWRyEslPFtn4 WUsiIM0RcUCcnGLuZuNaISDFRgWfE0iln7UlRhSaOSHOROezIZ4Lx9PniPDbHWc+Fx0DRX9sz3IlUFfs BsOvQB9jyk8RWLqLJySnD4QfqNqwIKOru2lnXKRzQA 8guRUeOVI2RS1fE7jeCCdrEpKWPE1iFNUmTEWjDORvhLPpPU5rBs4kKMTfXUFzUlWoEYPGDJ2PHUZuJD AtgAIkFHWkWRAVOX0BBUboFPP6LRAxqxFyfTMhBIpzTU1KBEHjeaYvXwBfCVONKXh+Ty9FSO7uc2MpFO oaZjIcVL7lhq1IYOiSYlVhS3A7wVDfY4L4ISyzIp3Q GMHpIMZjNnGmNYPTRKqtUB9BUJ4jaxS1GS4BsVXqHGErHBTrmSAgOYd6J69zcJNpBIikYR8ZPKW+Faby+ Sp4GYDTvBDDyXIBrZtJwCSDNLlKmY6MeZ3MHt5AyH4HgEU20cRyctiNgBHljTZ3ECM3oPUBgIXDIOI8H nXInsO6akrDrBLYoNFZEKiAkA25wtCZyZAZhWFI8OR QiMd1XEHPuS3JrhhVvcZwxlfPlQQAiYFBYIA7HBPyllgOvpHQxaCzhCQ81gZgeZL8AWr5XFxZaXI9voc 5WeGYiRj9WWPXkFO8PJUMaOLTjABLcODN9DUGqDdVzWWylHPEpVDFhROT6HTJdJCPuTI1HFjEpHRUcPi oeSTLqAXQoBCXyug6GWHRbPRLxAYfpHDYoILPvMIOp YKokFXAwOQHsBCU0RTXsSQTsOM2NSdIlHBDxVJPcTbMaIPQiZDVsus9AEPGhDBTfRaU3KHBxUBEnQXId QQatAJOsYAY3PYM1XFIiXXHvSC3EGcPzMWNkUPBaPjCqXTLoMYZbrv8FNSQaJVWrQtQ5JiCnMRNrMCLa VTjcYYVhRRK2LYZoBXZaTOHkND9KQdFpOCMxGPq6QX XnSEXyRACykf2MPABdZILjRRFcTWJuXTGnTIBpWUvyZGXfQAT4FFghRXTlAWRfJN5SKcNjTUYeNQZbEF ImEFKoSZEzzn3HKRMtZTTxRDY7PgVyTUEqVGEqYDagIQQnTLRdQVLgCLIvDCGhTS9SVcKnOMLhNuD2Ln TiHBSzFNHafs8KSAUbMLQjWcI4AACyGQYaBCJjUBxk NNCaRDSjFJS4MPFkXKPuCK2OFyRcVFMvKeG3FYPuUZToGMQprb0DFMVeHLTmYlncTZFeIPMjMXOmLFir VCTiKHFhWLCfQCTkHTOtBT8YXlLgYSNqWuHvLiowYQXgTPIcfj5IOCGlVBXdNWJuFGUkXVPaPITmSZrq PFGtUXT5CYY9EZReAHIoZA4MQrOoQEBbFkRwZuArZI DyDIAbof4ZLNSgVSBtCPTxCPThTBRqXVQbVKvnJZLsWWM2LBK8FNUcETWhZX1WFgRkMHKdFlQ9AxpqHC UbYQTfnv2EEWTbTQQdIjbtXJMfKELfARGrXIadAMHuWPK8OtZ5MYBaUJExCT8PLvUwJMDrYnu0LILbMX WySDRjkz7ZKDYmMAFlUWIpNPIqWBZtHEIfPYvpKXSt XOF3INe1IMGqFWXbSB5ARxUpVPKoNfOfFJYbHTTiGGFarq9MMAVjDOTlWIChKnQlBOMgPSCtQHceCGSp KDCtGrM1BLDwAIBfQF9KLqLvFDdvXDPDMze8IAqlL7w2LAHbPW5DZ2Hwl2UvCwcqDQHYYGhuBH5mqyPm CAHzEv5ZJ3hFLyjjAeT6DsUvOVSxSMZ9VgJ3MrHmLe j3MFX0KmTxUBJxHe0zXCLeSCwjDGMyLWXyGLqaRXhrKKB5OpEdLMgwXpJfDVJiOoFfCY0AWe9MFoJ6CJ K3kYXnNl1MZuN0CGIKAyJhMW5MPYe= ID Date Data Source [id number] 03/18/2020 10:00:00 AM EST [facility] Name Value Range Interpretation Code Description Data Amanda rce(s) Supporting Document(s) SARS coronavirus 2 RNA [facility] This lab was ordered by [facility] and reported by [facility]. ID Date Data Source [id number] 03/18/2020 08:17:[facility] Signs[facility] Pressure: 132/89 Patient History Medical History:aortic replacement- August- PREMED shoulder replacementosteoarthritsbi-lateral knee replacementhx of MRSAabdomnial hernia repear surgerysleep apneaanemiamigrinekidney stoneshypertentionrestless leg syndromeanxietyBacteria EndocriditisSurgical History:Family History:Diabetes (Mother)Heart disease (Mother)Hypertension (Mother, Maternal Grandfather)Social/Personal History: Current Problems: Dental caries (ICD-521.00) (OUA93-L90.9)Problem list reviewed during this update.Current Medications: * [...] setting, N95, surgical mask, hair covering, gown. [facility] with patient. No problems or concerns today. Pt. took her premed 1 hour before apt. Adult prophy- handscaled, prydeinig- mint prophy paste, floss, 4 BW'sOral cancer [...] rce(s) Supporting Document(s) ID Date Data Source [id number] 02/20/2020 04:04:13 PM EDT [facility] PCName: Courtney StarrDOB: 1955Provider: Lissy ArshadAUDREY: 02/18/2020 Reason For VisitCourtney Starr is an established patient here for follow up. [facility] DOI: 01/22/2019. Patient states they are [...] but she is already seeing 1 in [place]. We did receive the MRI report of [...] document was dictated and electronically signed using Zola software. A reasonable attempt at proof reading [...] rce(s) Supporting Document(s) ID Date Data Source [id number] 11/27/2019 12:15:56 PM [facility] CT 3D RECON INDEPENDENT [id number] RESUL TInterpreted by:Ravinder Marion MDEXAM: CT right [...] rce(s) Supporting Document(s) ID Date Data Source [id number] 11/27/2019 12:14:56 PM [facility] CT UPPER EXTREMITY WITHOUT CONTRAST 7320 0FINAL [...] rce(s) Supporting Document(s) ID Date Data Source [id number] 11/26/2019 12:00:00 AM EDT [facility] Roberta Morris MD [facility] [facility] Date of : 1955[place] [id number] Date of Exam: 11/26/2019PH#: Fax: [phone] EXAM: [...] obturator internus tendons grossly intact.Accredited by the [employer] in MR.Chely Mcbride, JRJL/Deepak you for referring COURTNEY STARR to our office. Electronically Signed - CHELY MCBRIDE MD 11/27/19 16:35 Name Value Range Interpretation Code Description Data Amanda rce(s) Supporting Document(s) ID Date Data Source [id number] 2019 01:06:52 PM EDT [facility] XR SHOULDER COMPLETE [id number] RESULTIn terpreted by:SANDRA Mendozalinical history: Right shoulder [...] rce(s) Supporting Document(s) ID Date Data Source [id number] 2019 11:24:48 AM EDT [facility] Name Value Range Interpretation Code Description Data Amanda rce(s) Supporting Document(s) Progress Note [facility] BYBLIn1vAxDRCfGv34/HOCwqDUCqg5WlNQuyCMt5NXryCPUpI4GwGFC1bA2vNIK9PIfAPrQvFrQbDaE4 lbm [file] ID Date Data Source [id number] 11/06/2019 08:14:23 AM EDT [facility] PCName: Courtney Bro: 1955Provider: Stew [...] rce(s) Supporting Document(s) ID Date Data Source [id number] 10/30/2019 08:19:00 AM EDT [facility] ([facility]) Name Value Range Interpretation Code Description Data Amanda rce(s) Supporting Document(s) Hemoglobin [Mass/volume] in Blood 14.1 12.0-15.5 [facility] ([facility]) ID Date Data Source [id number] 10/30/2019 08:19:00 AM EDT [facility] ([facility] ) Name Value Range Interpretation Code Description Data Amanda rce(s) Supporting Document(s) Erythrocytes [#/volume] in Blood by Automated count 4.78 4.00-5 .40 [facility] ([facility]) ID Date Data Source [id number] 10/30/2019 08:19:00 AM EDT [facility] ([facility]) Name Value Range Interpretation Code Description Data Amanda rce(s) Supporting Document(s) Leukocytes [#/volume] in Blood by Automated count 6.6 4.0-10.0 [facility] ([facility]) ID Date Data Source [id number] 10/30/2019 08:19:00 AM EDT [facility] ([facility]) Name Value Range Interpretation Code Description Data Amanda rce(s) Supporting Document(s) Calcium [Moles/volume] in Serum or Plasma 9.1 8.8-10.2 [facility] ([facility]) ID Date Data Source [id number] 10/30/2019 08:19:00 AM EDT [facility] ([facility]) Name Value Range Interpretation Code Description Data Amanda rce(s) Supporting Document(s) Anion gap 3 in Serum or Plasma 3 8-16 [facility] ([facility]) ID Date Data Source [id number] 10/30/2019 08:19:00 AM EDT [facility] ([facility]) Name Value Range Interpretation Code Description Data Amanda rce(s) Supporting Document(s) Carbon dioxide, total [Moles/volume] in Serum or Plasma 31 21 -32 [facility] ([facility]) ID Date Data Source [id number] 10/30/2019 08:19:00 AM EDT [facility] ([facility]) Name Value Range Interpretation Code Description Data Amanda rce(s) Supporting Document(s) Chloride [Moles/volume] in Serum or Plasma 104 98-107 [facility] ([facility]) ID Date Data Source [id number] 10/30/2019 08:19:00 AM EDT [facility] ([facility]) Name Value Range Interpretation Code Description Data Amanda rce(s) Supporting Document(s) Potassium [Moles/volume] in Serum or Plasma 4.3 3.5-5.1 [facility] ([facility]) ID Date Data Source [id number] 10/30/2019 08:19:00 AM EDT [facility] ([facility]) Name Value Range Interpretation Code Description Data Amanda rce(s) Supporting Document(s) Sodium [Moles/volume] in Serum or Plasma 138 136-145 [facility] ([facility]) ID Date Data Source [id number] 10/30/2019 08:19:00 AM EDT [facility] ([facility]) Name Value Range Interpretation Code Description Data Amanda rce(s) Supporting Document(s) Glomerular filtration rate/1.73 sq M.pre dicted [Volume Rate/Area] in Serum or Plasma by Creatinine-based formula (MDRD) Laboratory test result [facility] ([facility]) ID Date Data Source [id number] 10/30/2019 08:19:00 AM EDT [facility] ([facility]) Name Value Range Interpretation Code Description Data Amanda rce(s) Supporting Document(s) Creatinine [Mass/volume] in Serum or Plasma 0.99 0.55-1.30 [facility] ([facility]) ID Date Data Source [id number] 10/30/2019 08:19:00 AM EDT [facility] ([facility]) Name Value Range Interpretation Code Description Data Amanda rce(s) Supporting Document(s) Urea nitrogen [Mass/volume] in Serum or Plasma 17 7-18 [facility] ([facility]) ID Date Data Source [id number] 10/30/2019 08:19:00 AM EDT [facility] ([facility]) Name Value Range Interpretation Code Description Data Amanda rce(s) Supporting Document(s) Glucose [Mass/volume] in Serum or Plasma 109 70-100 [facility] ([facility]) ID Date Data Source [id number] 10/30/2019 08:19:00 AM EDT [facility] ([facility]) Name Value Range Interpretation Code Description Data Amanda rce(s) Supporting Document(s) Calcium oxalate crystals [Presence] in Urine sediment by Light microscopy Laboratory test result [facility]) ID Date Data Source [id number] 10/30/2019 08:19:00 AM EDT [facility] ([facility]) Name Value Range Interpretation Code Description Data Amanda rce(s) Supporting Document(s) Granular casts [Presence] in Urine sediment by Light microscopy 1 [facility] ([facility]) ID Date Data Source [id number] 10/30/2019 08:19:00 AM EDT [facility] ([facility]) Name Value Range Interpretation Code Description Data Amanda rce(s) Supporting Document(s) Urine Hyaline Casts (Auto) 0 0-1 [facility] ([facility] ) ID Date Data Source [id number] 10/30/2019 08:19:00 AM EDT [facility] ([facility] ) Name Value Range Interpretation Code Description Data Amanda rce(s) Supporting Document(s) Mucus [Presence] in Urine sediment by Light microscopy Laborator y test result [facility] ([facility] ) ID Date Data Source [id number] 10/30/2019 08:19:00 AM EDT [facility] ([facility]) Name Value Range Interpretation Code Description Data Amanda rce(s) Supporting Document(s) Epithelial cells.squamous [#/area] in Urine sediment by Automate d count 8 0-6 [facility] ([facility] ) ID Date Data Source [id number] 10/30/2019 08:19:00 AM EDT [facility] ([facility] ) Name Value Range Interpretation Code Description Data Amanda rce(s) Supporting Document(s) Bacteria [Presence] in Urine by Automated Laboratory test result [facility] ([facility] ) ID Date Data Source [id number] 10/30/2019 08:19:00 AM EDT [facility] ([facility] ) Name Value Range Interpretation Code Description Data Amanda rce(s) Supporting Document(s) Erythrocytes [#/volume] in Urine by Automated count 12 0-3 [facility] ([facility] ) ID Date Data Source [id number] 10/30/2019 08:19:00 AM EDT [facility] ([facility] ) Name Value Range Interpretation Code Description Data Amanda rce(s) Supporting Document(s) Leukocytes [#/area] in Urine sediment by Automated count 24 0 -3 [facility] ([facility] ) ID Date Data Source [id number] 10/30/2019 08:19:00 AM EDT [facility] ([facility] ) Name Value Range Interpretation Code Description Data Amanda rce(s) Supporting Document(s) Hemoglobin [Presence] in Urine by Automated test strip Laborator y test result [facility] ([facility] ) ID Date Data Source [id number] 10/30/2019 08:19:00 AM EDT [facility] ([facility] ) Name Value Range Interpretation Code Description Data Amanda rce(s) Supporting Document(s) Leukocyte esterase [Presence] in Urine by Automated te st strip Laboratory test result [facility] ([facility]) ID Date Data Source [id number] 10/30/2019 08:19:00 AM EDT [facility] ([facility]) Name Value Range Interpretation Code Description Data Amanda rce(s) Supporting Document(s) Nitrite [Presence] in Urine by Automated test strip Laboratory test result [facility] ([facility]) ID Date Data Source [id number] 10/30/2019 08:19:00 AM EDT [facility] ([facility]) Name Value Range Interpretation Code Description Data Amanda rce(s) Supporting Document(s) Bilirubin.total [Presence] in Urine by Automated test strip Laboratory test result [facility] ([facility]) ID Date Data Source [id number] 10/30/2019 08:19:00 AM EDT [facility] ([facility]) Name Value Range Interpretation Code Description Data Amanda rce(s) Supporting Document(s) Urobilinogen [Presence] in Urine by Automated test strip 0.2 0 .0-2.0 [facility] ([facility]) ID Date Data Source [id number] 10/30/2019 08:19:00 AM EDT [facility] ([facility]) Name Value Range Interpretation Code Description Data Amanda rce(s) Supporting Document(s) Ketones [Presence] in Urine by Automated test strip Laboratory test result [facility] ([facility]) ID Date Data Source [id number] 10/30/2019 08:19:00 AM EDT [facility] ([facility]) Name Value Range Interpretation Code Description Data Amanda rce(s) Supporting Document(s) Glucose [Presence] in Urine by Automated test strip Laboratory test result [facility] ([facility]) ID Date Data Source [id number] 10/30/2019 08:19:00 AM EDT [facility] ([facility]) Name Value Range Interpretation Code Description Data Amanda rce(s) Supporting Document(s) Lymphocytes [#/volume] in Blood by Automated count 1.7 1.5-5.0 [facility] ([facility]) ID Date Data Source [id number] 10/30/2019 08:19:00 AM EDT [facility] ([facility]) Name Value Range Interpretation Code Description Data Amanda rce(s) Supporting Document(s) Neutrophils [#/volume] in Blood by Automated count 4.1 1.5-8.5 [facility] ([facility]) ID Date Data Source [id number] 10/30/2019 08:19:00 AM EDT [facility] ([facility]) Name Value Range Interpretation Code Description Data Amanda rce(s) Supporting Document(s) Monocytes [#/volume] in Blood by Automated count 0.7 0.0-0.8 [facility] ([facility]) ID Date Data Source [id number] 10/30/2019 08:19:00 AM EDT [facility] ([facility]) Name Value Range Interpretation Code Description Data Amanda rce(s) Supporting Document(s) Eosinophils [#/volume] in Blood by Automated count 0.1 0.0-0.5 [facility] ([facility]) ID Date Data Source [id number] 10/30/2019 08:19:00 AM EDT [facility] ([facility]) Name Value Range Interpretation Code Description Data Amanda rce(s) Supporting Document(s) Nucleated erythrocytes/100 leukocytes [Ratio] in Blood by Au tomated count 0.0 0-0 [facility] ([facility]) ID Date Data Source [id number] 10/30/2019 08:19:00 AM EDT [facility] ([facility]) Name Value Range Interpretation Code Description Data Amanda rce(s) Supporting Document(s) Immature granulocytes/100 leukocytes in Blood by Automated count 0.3 0-3.0 [facility] ([facility]) ID Date Data Source [id number] 10/30/2019 08:19:00 AM EDT [facility] ([facility]) Name Value Range Interpretation Code Description Data Amanda rce(s) Supporting Document(s) Basophils/100 leukocytes in Blood by Automated count 0.3 0.0-1 .0 [facility] ([facility]) ID Date Data Source [id number] 10/30/2019 08:19:00 AM EDT [facility] ([facility]) Name Value Range Interpretation Code Description Data Amanda rce(s) Supporting Document(s) Basophils [#/volume] in Blood by Automated count 0.0 0.0-0.2 [facility] ([facility]) ID Date Data Source [id number] 10/30/2019 08:19:00 AM EDT [facility] ([facility]) Name Value Range Interpretation Code Description Data Amanda rce(s) Supporting Document(s) Appearance of Urine Laboratory test result [facility] ([facility]) ID Date Data Source [id number] 10/30/2019 08:19:00 AM EDT [facility] ([facility]) Name Value Range Interpretation Code Description Data Amanda rce(s) Supporting Document(s) Color of Urine by Auto Laboratory test result [facility] ([facility]) ID Date Data Source [id number] 10/30/2019 08:19:00 AM EDT [facility] ([facility]) Name Value Range Interpretation Code Description Data Amanda rce(s) Supporting Document(s) pH of Urine by Automated test strip 6.0 5.0-9.0 [facility] ([facility]) ID Date Data Source [id number] 10/30/2019 08:19:00 AM EDT [facility] ([facility]) Name Value Range Interpretation Code Description Data Amanda rce(s) Supporting Document(s) Specific gravity of Urine by Automated test strip 1.015 1.002-1. 035 [facility] ([facility]) ID Date Data Source [id number] 10/30/2019 08:19:00 AM EDT [facility] ([facility]) Name Value Range Interpretation Code Description Data Amanda rce(s) Supporting Document(s) Protein [Presence] in Urine by Automated test strip Laboratory test result [facility] ([facility]) ID Date Data Source [id number] 10/30/2019 08:19:00 AM EDT [facility] ([facility]) Name Value Range Interpretation Code Description Data Amanda rce(s) Supporting Document(s) Eosinophils/100 leukocytes in Blood by Automated count 1.2 0.0 -3.0 [facility] ([facility]) ID Date Data Source [id number] 10/30/2019 08:19:00 AM EDT [facility] ([facility]) Name Value Range Interpretation Code Description Data Amanda rce(s) Supporting Document(s) Monocytes/100 leukocytes in Blood by Automated count 10.1 0.0-5 .0 [facility] ([facility]) ID Date Data Source [id number] 10/30/2019 08:19:00 AM EDT [facility] ([facility]) Name Value Range Interpretation Code Description Data Amanda rce(s) Supporting Document(s) Lymphocytes/100 leukocytes in Blood by Automated count 26.0 24. 0-44.0 [facility] ([facility]) ID Date Data Source [id number] 10/30/2019 08:19:00 AM EDT [facility] ([facility]) Name Value Range Interpretation Code Description Data Amanda rce(s) Supporting Document(s) Neutrophils [#/volume] in Blood by Automated count 62.1 36.0-66 .0 [facility] ([facility]) ID Date Data Source [id number] 10/30/2019 08:19:00 AM EDT [facility] ([facility]) Name Value Range Interpretation Code Description Data Amanda rce(s) Supporting Document(s) Platelets [#/volume] in Blood by Automated count 177 150-450 [facility] ([facility]) ID Date Data Source [id number] 10/30/2019 08:19:00 AM EDT [facility] ([facility]) Name Value Range Interpretation Code Description Data Amanda rce(s) Supporting Document(s) Erythrocyte distribution width [Ratio] by Automated count 13.1 11.5-14.5 [facility] ([facility]) ID Date Data Source [id number] 10/30/2019 08:19:00 AM EDT [facility] ([facility]) Name Value Range Interpretation Code Description Data Amanda rce(s) Supporting Document(s) Erythrocyte mean corpuscular hemoglobin concentration [Mass/volume] by Automated count 31.3 32.0-36.5 [facility]) ID Date Data Source [id number] 10/30/2019 08:19:00 AM EDT [facility] ([facility]) Name Value Range Interpretation Code Description Data Amanda rce(s) Supporting Document(s) Erythrocyte mean corpuscular hemoglobin [Entitic mass] by Au tomated count 29.5 27.0-33.0 [facility] ([facility]) ID Date Data Source [id number] 10/30/2019 08:19:00 AM EDT [facility] ([facility]) Name Value Range Interpretation Code Description Data Amanda rce(s) Supporting Document(s) Erythrocyte mean corpuscular volume [Entitic volume] by Auto mated count 94.4 80.0-96.0 [facility] ([facility]) ID Date Data Source [id number] 10/30/2019 08:19:00 AM EDT [facility] ([facility]) Name Value Range Interpretation Code Description Data Amanda rce(s) Supporting Document(s) Hematocrit [Volume Fraction] of Blood by Automated count 45.1 3 6.0-47.0 [facility] ([facility]) ID Date Data Source [id number] 10/10/2019 10:54:26 AM EDT [facility] Courtney StarrB: 1955Provider: Stew [...] rce(s) Supporting Document(s) ID Date Data Source [id number] 10/03/2019 03:45:00 PM EDT [facility] PATIENT MR#: [id number] NAME: Courtney Mora DATE OF : 1955REFERRING [...] rce(s) Supporting Document(s) ID Date Data Source [id number] 09/30/2019 05:50:18 PM EDT [facility] Name Value Range Interpretation Code Description Data Amanda rce(s) Supporting Document(s) &PDF [facility] TKRLWi4sWdVYGqDe56/NOMxnAYTvq9KjBPckKZh7XRevUKWmR7DrcTjjJK4IZY0PC2HXAGKACfENICGf vci [file] ICAgICAgICAgICAgICAgICAgICAgICAgICAgICAgICAgICAgICAgICAgICAgICAgICAgICAgICAgICAg ICAgICAgICAgICAgICAgICAgICAgICAgICAgICAgIC TiULFmMSUoZV9GVBEpLWAnLBFeHVZrJOXlBOFzOMCkNQOdMTOgLXZxORRcWMOkTNKbJWToTDJdGAKgLS RaTPHtRTDaEKAhPUUkBKGrVIFzDGZgJZJbXATtRFNuIVYoQMFoNMGuIDVmQCPrFWNkYJ5UFCKkWMDtEK AgICAgICAgICAgICAgICAgICAgICAgICAgICAgICAg ICAgICAgICAgICAgICAgICAgICAgICAgICAgICAgICAgICAgICAgICAgICAgICAgICAgICAgICAgICAg ME5KBGAxKISdIFFlSUHnZAGfBHAaZOSvIVYlRSYsNZVzRQUmUEChUILrSVHqKXKxQHCmLJTgNRQrYYZa ICAgICAgICAgICAgICAgICAgICAgICAgICAgICAgIC VqHADdMUTyYOKcJP5LJDUbHQSuDUKtXWVrTURiCMGpGIQiEVMwZFNhOBZfDPSjYRRxSALjCIPpXPVxUX AgIFOgFABwIGWjHBUvADPhZZIbHWKjFTQpPGNwBKJdEJGdVHNvCXGmNLFcCRLsNGFgYURkAH5FAPFiNT AgICAgICAgICAgICAgICAgICAgICAgICAgICAgICAg ICAgICAgICAgICAgICAgICAgICAgICAgICAgICAgICAgICAgICAgICAgICAgICAgICAgICAgICAgICAg GZWdWA3OBFWyUXHrRWAaGZAmNHHsLQIiVSSsLMBxQFQvOWRyCCInQXLxULPeNLCsAAAhXPZgHBSzFMOl ICAgICAgICAgICAgICAgICAgICAgICAgICAgICAgIC UbRWStTGMkWGIvVKAxQO3STDVeKYRpPHClOQNjGNMcXBHmPDWrREHqRBSlYVNqSZFnQINaYVSzVYAoXI EbMARyRIBfEBZbIHRfOUByLDKeCUAqVNRgHSAlMFKdNEWnTVFoWBAqKUPuRYOlEJLxRQWgRMJqMZ5LDO AgICAgICAgICAgICAgICAgICAgICAgICAgICAgICAg ICAgICAgICAgICAgICAgICAgICAgICAgICAgICAgICAgICAgICAgICAgICAgICAgICAgICAgICAgICAg VLIsJTCzGU2GMGUdXMPqQOXiJNQySCUoWSErKHQtTCIpISXoCZRsEZCoWRYwIPWnHZTvMBYnUHDnMAAb ICAgICAgICAgICAgICAgICAgICAgICAgICAgICAgIC HqUMVqXQCvITUbSOXzJBNdIK7JFJ97kWVpu8A9ASNqTA0qfqs/Bh8NGXoyivIelRRmPH8EHxXuNT8odc 1SQxUyOA9rsx5AZAbDQbWiT6X9nINqWYIsMWEAVxTrU59qKFwxDx32ESzeLDGxQgVgMEh2Zj7BFmDwC6 vmZZZuToB3JGSeHfSgKPnqNU2Zw3PxwUUkDLr+Pg0K CT6tr2PtGBgyFuQgQY2zov9JWMmNZhPtJ4F8kFVzI1R1IAwzMe7WWQIrYEOkWQUvFJGTMRwfRX5OPJ6p lhT8LG8BnHMbYGXaZCIpnSRySXn4B88jsTXrVEhcCU4ACLR+Faby+Pm5YERUyWJFzDHWnXnUtRPPEWoDz B76juZUfZPXkHWI0CRLgJv3BTQOmI3DqguSveGnees WvAVZnKLBGXL6SDZygawTsfBZovCznEM93oCyhKD2PTh6EWaCoEU5pbs4LeWTzLb8IMZDlNn1NVSScAH DoWNTgNDW8XCCrFvJuYDyxSRWyORDuVCW8SMIyZGYuRL2FVbRiVDAxFAQ5YdUpHMDtVALtmo6NBCVdMC IsBNS0NjTfUKCuTVGmHGumRBMjGHCrOVjdEPFiXBNl FT6TOmQrUZJjJOEdPLPmYRAzPRCwgu4PHZSzQSNaPdTlTkGrJTVsGFWkRBnnVUWbZTUuWGe6IHPwRRJk XT8EMbNaPVTaQODiFjFgAAQjXTOsvs7WMEJbQBKsLpK4KvXyZXZrGMUhESqeTBMvGKW0MPXbYVMhZWMi EC8EToUkGTBvEVD6SLGzIEZpOLLsyi4QVEDrKGGvBW w8LFKcERUnNPRuZPqlFLNeEFSoUEhjWYMbHXAkBI8AGpHeWZCrOUV1PDvuTBVbPQSrzl4XXYOdYJEsCU HqXqYdKADqVNYfXGftOHLgAQS8AIBwVMDrSXVaOH5JJkEvWSwyIMUOXgz3WVlgX3e5CPMyWc0IG1Lrk7 YfDQTpHGPKYFdtEQ2jesVjMPQtZw0UL4kWVgy8ZXGl HeDiWDH5Knz4UdFlEpJrGvcmEIduOCVeASMfRv7uZYJiBSD0RuQ6DRH1GZl1LcCwIqQ6DCP5HWVlQjD7 OMH3WcSzRB6GYq8FMzZ0FEH9gBNfSr3IESY0GQoKNpTlSW8OISg= ID Date Data Source [id number] 07/25/2019 01:17:30 PM EDT [facility]: Courtney TidwellB: 1955Provider: Stew [...] knees; RAF = N; Verified Transmission to [place] #13; Last Updated By: Yovani Gaona; 07/18/2019 [...] rce(s) Supporting Document(s) ID Date Data Source [id number] 07/16/2019 08:00:00 AM EST [facility] ([facility]) Name Value Range Interpretation Code Description Data Amanda rce(s) Supporting Document(s) Ketones [Presence] in Urine by Test strip Laboratory test result [facility] ([facility]) ID Date Data Source [id number] 07/16/2019 08:00:00 AM EST [facility] ([facility]) Name Value Range Interpretation Code Description Data Amanda rce(s) Supporting Document(s) Urobilinogen [Presence] in Urine by Test strip [facility] ID Date Data Source [id number] 07/16/2019 08:00:00 AM EST [facility] ([facility]) Name Value Range Interpretation Code Description Data Amanda rce(s) Supporting Document(s) Glucose [Mass/volume] in Urine by Test strip [facility] ID Date Data Source [id number] 07/16/2019 08:00:00 AM EST [facility] ([facility]) Name Value Range Interpretation Code Description Data Amanda rce(s) Supporting Document(s) Bilirubin.total [Presence] in Urine by Test strip Laboratory test res ult [facility] ([facility]) ID Date Data Source [id number] 07/16/2019 08:00:00 AM EST [facility] ([facility] Name Value Range Interpretation Code Description Data Amanda rce(s) Supporting Document(s) Nitrite [Presence] in Urine by Test strip Laboratory test result [facility] ([facility] ID Date Data Source [id number] 07/16/2019 08:00:00 AM EST [facility] ([facility] Name Value Range Interpretation Code Description Data Amanda rce(s) Supporting Document(s) Leukocyte esterase [Presence] in Urine by Test strip Laboratory kerry t result [facility] ([facility] ) ID Date Data Source [id number] 07/16/2019 08:00:00 AM EST [facility] ([facility] Name Value Range Interpretation Code Description Data Amanda rce(s) Supporting Document(s) Protein [Mass/volume] in Urine by Test strip Laboratory test result [facility] ([facility] ID Date Data Source [id number] 07/16/2019 08:00:00 AM EST [facility] ([facility] Name Value Range Interpretation Code Description Data Amanda rce(s) Supporting Document(s) Specific gravity of Urine by Test strip 1.020 1.002-1.035 [facility] ([facility] ID Date Data Source [id number] 07/16/2019 08:00:00 AM EST [facility] ([facility] Name Value Range Interpretation Code Description Data Amanda rce(s) Supporting Document(s) pH of Urine by Test strip 6.0 5.0-7.0 [facility] ([facility] ID Date Data Source [id number] 07/16/2019 08:00:00 AM EST [facility] ([facility] Name Value Range Interpretation Code Description Data Amanda rce(s) Supporting Document(s) Color of Urine Laboratory test result [facility] ([facility] ID Date Data Source [id number] 07/16/2019 08:00:00 AM EST [facility] ([facility] Name Value Range Interpretation Code Description Data Amanda rce(s) Supporting Document(s) Appearance of Urine Laboratory test result [facility] ([facility] ID Date Data Source [id number] 07/16/2019 08:00:00 AM EST [facility] ([facility]) Name Value Range Interpretation Code Description Data Amanda rce(s) Supporting Document(s) Hemoglobin [Presence] in Urine by Test strip Laboratory test result [facility] ([facility]) ID Date Data Source [id number] 07/16/2019 08:00:00 AM EST [facility] ([facility]) Name Value Range Interpretation Code Description Data Amanda rce(s) Supporting Document(s) Leukocytes [#/area] in Urine sediment by Microscopy hi gh power field Laboratory test result 0-3 [facility] ([facility]) ID Date Data Source [id number] 07/16/2019 08:00:00 AM EST [facility] ([facility]) Name Value Range Interpretation Code Description Data Amanda rce(s) Supporting Document(s) Erythrocytes [#/area] in Urine sediment by Microscopy high power field Laboratory test result 0-3 [facility] ID Date Data Source [id number] 07/16/2019 08:00:00 AM EST [facility] ([facility]) Name Value Range Interpretation Code Description Data Amanda rce(s) Supporting Document(s) Epithelial cells.squamous [Presence] in Urine sediment by Light microscopy Laboratory test result [facility]) ID Date Data Source [id number] 07/16/2019 08:00:00 AM EST [facility] ([facility]) Name Value Range Interpretation Code Description Data Amanda rce(s) Supporting Document(s) Calcium oxalate crystals [Presence] in Urine sediment by Light microscopy Laboratory test result [facility] ([facility]) ID Date Data Source [id number] 07/16/2019 08:00:00 AM EST [facility] ([facility]) Name Value Range Interpretation Code Description Data Amanda rce(s) Supporting Document(s) Bacteria [Presence] in Urine sediment by Light microsc opy Laboratory test result [facility] ([facility]) ID Date Data Source [id number] 07/16/2019 08:00:00 AM EST [facility] ([facility]) Name Value Range Interpretation Code Description Data Amanda rce(s) Supporting Document(s) Hyaline casts [Presence] in Urine sediment by Light mi croscopy Laboratory test result 0-1 [facility] ([facility]) ID Date Data Source [id number] 07/16/2019 08:00:00 AM EST [facility] ([facility] Name Value Range Interpretation Code Description Data Amanda rce(s) Supporting Document(s) Mucus [Presence] in Urine sediment by Light microscopy Laborator y test result [facility] ([facility] ) ID Date Data Source [id number] 07/16/2019 08:00:00 AM EST [facility] ([facility] Name Value Range Interpretation Code Description Data Amanda rce(s) Supporting Document(s) Urine Sediment Examination Laboratory test result [facility] ([facility] ) ID Date Data Source [id number] 07/09/2019 06:28:00 PM EST [facility] ([facility] Name Value Range Interpretation Code Description Data Amanda rce(s) Supporting Document(s) Urine Appearance Laboratory test result [facility] ([facility] ) Urine Color Laboratory test result [facility] ([facility] ) pH of Urine 5.0 5.0-9.0 [facility] ([facility] Urine Specific [place] 1.050 1.002-1.035 [facility] ([facility] ) Urine Protein Laboratory test result [facility] ([facility] ) Urine Glucose (Ua) Laboratory test result [facility] ([facility] ) Urine Ketones Laboratory test result [facility] ([facility] ) [facility]rine [facility] Urine Urobilinogen 0.2 0.0-2.0 [facility] ([facility] Urine Leukocyte Esterase Laboratory test result [facility] ([facility] ) Urine Nitrite Laboratory test result [facility] ([facility] ) Urine Blood Laboratory test result [facility] ([facility] Urine WBC (Auto) 12 0-3 [facility] ([facility] Urine RBC (Auto) 14 0-3 [facility] ([facility] Urine Bacteria (Auto) Laboratory test result [facility] ([facility] ) Urine Squamous Epithelial Cells 16 0-6 [facility] ([facility] Urine Mucus (Auto) Laboratory test result [facility] ([facility] ) Urine Hyaline Casts (Auto) 0 0-1 [facility] ([facility] ) Amorphous sediment [Presence] in Urine sediment by Lig ht microscopy Laboratory test result [facility] ([facility]) ID Date Data Source [id number] 07/09/2019 03:15:00 PM EST [facility] ([facility]) Name Value Range Interpretation Code Description Data Amanda rce(s) Supporting Document(s) Hematocrit [Volume Fraction] of Blood 46.0 38.0-51.0 [facility] ([facility]) ID Date Data Source [id number] 07/09/2019 03:15:00 PM EST [facility] ([facility]) Name Value Range Interpretation Code Description Data Amanda rce(s) Supporting Document(s) Glucose [Mass/volume] in Blood 97 70-105 [facility] ([facility]) ID Date Data Source [id number] 07/09/2019 03:15:00 PM EST [facility] ([facility]) Name Value Range Interpretation Code Description Data Amanda rce(s) Supporting Document(s) Sodium [Moles/volume] in Blood 138 136-145 [facility] ([facility]) ID Date Data Source [id number] 07/09/2019 03:15:00 PM EST [facility] ([facility]) Name Value Range Interpretation Code Description Data Amanda rce(s) Supporting Document(s) Potassium [Moles/volume] in Blood 4.7 3.5-5.1 [facility] ([facility]) ID Date Data Source [id number] 07/09/2019 03:15:00 PM EST [facility] ([facility]) Name Value Range Interpretation Code Description Data Amanda rce(s) Supporting Document(s) Calcium.ionized [Moles/volume] in Blood 4.3 4.5-5.3 [facility] ([facility]) ID Date Data Source [id number] 07/09/2019 03:15:00 PM EST [facility] ([facility]) Name Value Range Interpretation Code Description Data Amanda rce(s) Supporting Document(s) Chloride [Moles/volume] in Blood 106 98-109 [facility] ([facility]) ID Date Data Source [id number] 07/09/2019 03:15:00 PM EST [facility] ([facility]) Name Value Range Interpretation Code Description Data Amanda rce(s) Supporting Document(s) Carbon dioxide, total [Moles/volume] in Blood 27.0 23.0-27.0 [facility] ([facility]) ID Date Data Source [id number] 07/09/2019 03:15:00 PM EST [facility] ([facility]) Name Value Range Interpretation Code Description Data Amanda rce(s) Supporting Document(s) Urea nitrogen [Mass/volume] in Blood 26 8-26 [facility] ([facility]) ID Date Data Source [id number] 07/09/2019 03:15:00 PM EST [facility] ([facility]) Name Value Range Interpretation Code Description Data Amanda rce(s) Supporting Document(s) Creatinine [Mass/volume] in Blood 0.8 0.6-1.3 [facility] ([facility]) ID Date Data Source [id number] 07/09/2019 03:10:00 PM EST [facility] ([facility]) Name Value Range Interpretation Code Description Data Amanda rce(s) Supporting Document(s) Erythrocyte sedimentation rate by Westergren method 3 0-30 [facility] ([facility]) ID Date Data Source [id number] 07/09/2019 03:10:00 PM EST [facility] ([facility]) Name Value Range Interpretation Code Description Data Amanda rce(s) Supporting Document(s) Prothrombin time (PT) 13.0 11.8-14.0 [facility] ( [facility]) ID Date Data Source [id number] 07/09/2019 03:10:00 PM EST [facility] ([facility]) Name Value Range Interpretation Code Description Data Amanda rce(s) Supporting Document(s) INR in Platelet poor plasma by Coagulation assay 1.01 [facility] ([facility]) ID Date Data Source [id number] 07/09/2019 03:10:00 PM EST [facility] ([facility]) Name Value Range Interpretation Code Description Data Amanda rce(s) Supporting Document(s) aPTT in Blood by Coagulation assay 26.4 25.0-38.4 [facility] ([facility]) ID Date Data Source [id number] 07/09/2019 03:10:00 PM EST [facility] ([facility]) Name Value Range Interpretation Code Description Data Amanda rce(s) Supporting Document(s) Aspartate aminotransferase [Enzymatic activity/volume] in Se rum or Plasma 15 7-37 [facility] ([facility]) ID Date Data Source [id number] 07/09/2019 03:10:00 PM EST [facility] ([facility]) Name Value Range Interpretation Code Description Data Amanda rce(s) Supporting Document(s) Alanine aminotransferase [Enzymatic activity/volume] in Seru m or Plasma 19 12-78 [facility] ([facility]) ID Date Data Source [id number] 07/09/2019 03:10:00 PM EST [facility] ([facility]) Name Value Range Interpretation Code Description Data Amanda rce(s) Supporting Document(s) Creatine kinase [Enzymatic activity/volume] in Serum or Plasma 90 26-192 [facility] ([facility]) ID Date Data Source [id number] 07/09/2019 03:10:00 PM EST [facility] ([facility]) Name Value Range Interpretation Code Description Data Amanda rce(s) Supporting Document(s) Creatine kinase.MB [Mass/volume] in Serum or Plasma 1.9 [facility] ([facility]) ID Date Data Source [id number] 07/09/2019 03:10:00 PM EST [facility] ([facility]) Name Value Range Interpretation Code Description Data Amanda rce(s) Supporting Document(s) Creatine kinase.MB/Creatine kinase.total [Pure catalytic fraction] in Serum or Plasma by calculation 2.11 [facility] ([facility]) ID Date Data Source [id number] 07/09/2019 03:10:00 PM EST [facility] ([facility]) Name Value Range Interpretation Code Description Data Amanda rce(s) Supporting Document(s) Alkaline phosphatase [Enzymatic activity/volume] in Serum or Marlene sma 136 45-117 [facility] ([facility]) ID Date Data Source [id number] 07/09/2019 03:10:00 PM EST [facility] ([facility]) Name Value Range Interpretation Code Description Data Amanda rce(s) Supporting Document(s) Bilirubin.total [Mass/volume] in Serum or Plasma 0.3 0.2-1.0 [facility] ([facility]) ID Date Data Source [id number] 07/09/2019 03:10:00 PM EST [facility] ([facility]) Name Value Range Interpretation Code Description Data Amanda rce(s) Supporting Document(s) Bilirubin.direct [Mass/volume] in Serum or Plasma 0.1 0.0-0.2 [facility] ([facility]) ID Date Data Source [id number] 07/09/2019 03:10:00 PM EST [facility] ([facility]) Name Value Range Interpretation Code Description Data Amanda rce(s) Supporting Document(s) Protein [Mass/volume] in Serum or Plasma 7.5 6.4-8.2 [facility] ([facility]) ID Date Data Source [id number] 07/09/2019 03:10:00 PM EST [facility] ([facility]) Name Value Range Interpretation Code Description Data Amanda rce(s) Supporting Document(s) Albumin [Mass/volume] in Serum or Plasma 3.9 3.2-5.2 [facility] ([facility]) ID Date Data Source [id number] 07/09/2019 03:10:00 PM EST [facility] ([facility]) Name Value Range Interpretation Code Description Data Amanda rce(s) Supporting Document(s) Albumin/Globulin [Mass Ratio] in Serum or Plasma 1.08 1.00-1.93 [facility] ([facility]) ID Date Data Source [id number] 07/09/2019 03:10:00 PM EST [facility] ([facility]) Name Value Range Interpretation Code Description Data Amanda rce(s) Supporting Document(s) Troponin I.cardiac [Mass/volume] in Serum or Plasma Laboratory test result [facility] ([facility]) ID Date Data Source [id number] 07/09/2019 03:10:00 PM EST [facility] ([facility]) Name Value Range Interpretation Code Description Data Amanda rce(s) Supporting Document(s) Natriuretic peptide.B prohormone N-Terminal [Mass/volu me] in Serum or Plasma 242 [facility] ([facility]) ID Date Data Source [id number] 07/09/2019 03:10:00 PM EST [facility] ([facility]) Name Value Range Interpretation Code Description Data Amanda rce(s) Supporting Document(s) C reactive protein [Mass/volume] in Serum or Plasma by High sensitivity method 0.99 0.00-0.30 MEDENT ([facility]) ID Date Data Source VITAMIN D 25-HYDROXY 05/14/2019 12:00:00 AM EST eCW1 ([facility]) Name Value Range Interpretation Code Description Data Amanda rce(s) Supporting Document(s) 31.4 30.0-100.0 TOTAL 25(OH) VITAMIN D eC W1 ([facility]) ID Date Data Source VITAMIN B12 LEVEL 05/14/2019 12:00:00 AM EST eCW1 ([facility]) Name Value Range Interpretation Code Description Data Amanda rce(s) Supporting Document(s) [phone] VITAMIN B12 LEVEL eCW1 ([facility]) ID Date Data Source RBC FOLATE PROFILE 05/14/2019 12:00:00 AM EST eCW1 ([facility]) Name Value Range Interpretation Code Description Data Amanda rce(s) Supporting Document(s) 46.6 36.0-47.0 HEMATOCRIT eCW1 ([facility]) ID Date Data Source TOTAL IRON BINDING CAPACIT 05/14/2019 12:00:00 AM EST eCW1 ( [facility]) Name Value Range Interpretation Code Description Data Amanda rce(s) Supporting Document(s) 63 50-170 IRON (FE) eCW1 ([facility]) 19.2 13.2-45.0 PERCENT SATURATION eCW1 ([facility]) 328 250-450 TOTAL IRON BINDING CAPACI TY eCW1 ([facility]) ID Date Data Source [id number] 05/14/2019 12:00:00 AM EST eCW1 ([facility]) Name Value Range Interpretation Code Description Data Amanda rce(s) Supporting Document(s) Hemoglobin A1c/Hemoglobin.total in Blood 6.0 HEMOGLOBIN A1c eCW1 ([facility]) ID Date Data Source PHOSPHOROUS LEVEL 05/14/2019 12:00:00 AM EST eCW1 ([facility]) Name Value Range Interpretation Code Description Data Amanda rce(s) Supporting Document(s) 2.8 2.5-4.9 PHOSPHORUS LEVEL eCW1 ([facility]) ID Date Data Source MAGNESIUM LEVEL 05/14/2019 12:00:00 AM EST eCW1 ([facility]) Name Value Range Interpretation Code Description Data Amanda rce(s) Supporting Document(s) 2.4 1.8-2.4 MAGNESIUM LEVEL W1 ([facility]) ID Date Data Source FREE T4 & TSH PANEL 05/14/2019 12:00:00 AM EST eCW1 ([facility]) Name Value Range Interpretation Code Description Data Amanda rce(s) Supporting Document(s) 1.09 0.76-1.46 FREE T4 eCW1 ([facility]) 0.842 0.358-3.740 THYROID STIMULATING HORM ONE eCW1 ([facility]) ID Date Data Source FERRITIN 05/14/2019 12:00:00 AM EST eCW1 ([facility]) Name Value Range Interpretation Code Description Data Amanda rce(s) Supporting Document(s) 41 5-579 FERRITIN eCW1 ([facility]) ID Date Data Source Comprehensive Metabolic Profile (CMP) 05/14/2019 12:00:00 AM EST eCW1 ([facility]) Name Value Range Interpretation Code Description Data Amanda rce(s) Supporting Document(s) 14 7-18 BLOOD UREA NITROGEN eCW1 ([facility]) > 60.0 >45 GLOMERULAR FILTRATION RATE eCW 1 ([facility]) 104 70-100 GLUCOSE, FASTING eCW1 ([facility]) 0.94 0.55-1.30 CREATININE FOR GFR eCW1 ([facility]) 31 21-32 CARBON DIOXIDE LEVEL eCW1 ([facility]) 4.6 3.5-5.1 POTASSIUM SERUM eCW1 ([facility]) 141 136-145 SODIUM LEVEL eCW1 ([facility]) 105 98-107 CHLORIDE LEVEL eCW1 ([facility]) 9.2 8.8-10.2 CALCIUM LEVEL eCW1 ([facility]) 27 12-78 ALT/SGPT eCW1 ([facility]) 136 45-117 ALKALINE PHOSPHATASE eCW1 ([facility]) 0.5 0.2-1.0 BILIRUBIN,TOTAL eCW1 ([facility]) 17 7-37 AST/SGOT eCW1 ([facility]) 7.1 6.4-8.2 TOTAL PROTEIN eCW1 ([facility]) 3.5 3.2-5.2 ALBUMIN eCW1 ([facility]) 0.97 1.00-1.93 ALBUMIN/GLOBULIN RATIO eCW1 ([facility]) ID Date Data Source CBC with Differential 05/14/2019 12:00:00 AM EST eCW1 ([facility]) Name Value Range Interpretation Code Description Data Amanda rce(s) Supporting Document(s) 7.4 4.0-10.0 WHITE BLOOD COUNT eCW1 ([facility]) 4.86 4.00-5.40 RED BLOOD COUNT eCW1 ([facility]) 46.6 36.0-47.0 HEMATOCRIT eCW1 ([facility]) 14.1 12.0-15.5 HEMOGLOBIN eCW1 ([facility]) 13.2 11.5-14.5 RED CELL DISTRIBUTION WID TH eCW1 ([facility]) 95.9 80.0-96.0 MEAN CORPUSCULAR VOLUME e CW1 ([facility]) 30.3 32.0-36.5 MEAN CORPUSCULAR HGB CONC eCW1 ([facility]) 29.0 27.0-33.0 MEAN CORPUSCULAR HEMOGLOB IN eCW1 ([facility]) 3.2 0.0-3.0 EOS % eCW1 ([facility]) 68.9 36.0-66.0 NEUTROPHILS % eCW1 ([facility]) 188 150-450 PLATELET COUNT, AUTOMATED eCW1 ([facility]) 17.2 24.0-44.0 LYMPH % eCW1 ([facility]) 9.9 0.0-5.0 MONO % eCW1 ([facility]) 1.3 1.5-5.0 LYMPH # eCW1 ([facility]) 0.7 0.0-0.8 MONO # eCW1 ([facility]) 5.1 1.5-8.5 NEUTROPHILS # eCW1 ([facility]) 0.4 0.0-1.0 BASO % eCW1 ([facility]) 0.2 0.0-0.5 EOS # eCW1 ([facility]) 0.0 0.0-0.2 BASO # eCW1 ([facility]) Procedure Social History Code Duration Value Status Description Data Source(s ) Smoking 06/11/2020 12:00:00 AM EST Never Smoker completed Never S moker eCW1 ([facility]) Smoking 06/11/2020 12:00:00 AM EST Never Smoker completed Never S moker eCW1 ([facility]) Smoking 06/11/2020 12:00:00 AM EST Never Smoker completed Never S moker eCW1 ([facility]) Smoking 06/11/2020 12:00:00 AM EST Never Smoker completed Never S moker eCW1 ([facility]) Smoking 06/11/2020 12:00:00 AM EST Never Smoker completed Never S moker eCW1 ([facility]) Smoking 05/27/2020 12:00:00 AM EST Never Smoker completed Never S moker eCW1 ([facility]) Smoking 05/27/2020 12:00:00 AM EST Never Smoker completed Never S moker eCW1 ([facility]) Smoking 05/27/2020 12:00:00 AM EST Never Smoker completed Never S moker eCW1 ([facility]) Smoking 05/27/2020 12:00:00 AM EST Never Smoker completed Never S moker eCW1 ([facility]) Smoking 05/26/2020 12:00:00 AM EST Never Smoker completed Never S moker eCW1 ([facility]) Smoking 05/26/2020 12:00:00 AM EST Never Smoker completed Never S moker eCW1 ([facility]) Smoking 05/22/2020 12:00:00 AM EST Never Smoker completed Never S moker eCW1 ([facility]) Smoking 05/21/2020 12:00:00 AM EST Never Smoker completed Never S moker eCW1 ([facility]) Smoking 04/08/2020 12:00:00 AM EST Never Smoker completed Never S moker eCW1 ([facility]) Smoking 04/08/2020 12:00:00 AM EST Never Smoker completed Never S moker eCW1 ([facility]) Smoking 04/08/2020 12:00:00 AM EST Never Smoker completed Never S moker eCW1 ([facility]) Smoking 04/08/2020 12:00:00 AM EST Never Smoker completed Never S moker eCW1 ([facility]) Smoking 04/08/2020 12:00:00 AM EST Never Smoker completed Never S moker eCW1 ([facility]) Smoking 04/08/2020 12:00:00 AM EST Never Smoker completed Never S moker eCW1 ([facility]) Smoking 04/08/2020 12:00:00 AM EST Never Smoker completed Never S moker eCW1 ([facility]) Alcohol intake 03/31/2020 12:00:00 AM EST Current non-d woody of alcohol (finding) completed Current non-drinker of alcohol (finding) [facility] Tobacco use and exposure 03/31/2020 12:00:00 AM EST Never used co mpleted Never used [facility] Smoking 03/31/2020 12:00:00 AM EST Never smoker completed Never s [facility] Smoking 03/23/2020 12:00:00 AM EST Never Smoker completed Never S moker eCW1 ([facility]) Smoking 03/23/2020 12:00:00 AM EST Never Smoker completed Never S moker eCW1 ([facility]) Smoking 03/23/2020 12:00:00 AM EST Never Smoker completed Never S moker eCW1 ([facility]) Smoking 03/20/2020 12:00:00 AM EST Never Smoker completed Never S moker eCW1 ([facility]) Smoking 03/09/2020 12:00:00 AM EDT Never Smoker completed Never S moker eCW1 ([facility]) Smoking 03/09/2020 12:00:00 AM EDT Never Smoker completed Never S moker eCW1 ([facility]) Smoking 02/28/2020 12:00:00 AM EDT Never Smoker completed Never S moker eCW1 ([facility]) Alcohol intake 2019 12:00:00 AM EDT Current non-d woody of alcohol (finding) completed Current non-drinker of alcohol (finding) [facility] Smoking 2019 12:00:00 AM EDT Never smoker completed Never s [facility] Smoking 11/08/2019 12:00:00 AM EDT Never Smoker completed Never S moker eCW1 ([facility]) Smoking 11/08/2019 12:00:00 AM EDT Never Smoker completed Never S moker eCW1 ([facility]) Smoking 11/08/2019 12:00:00 AM EDT Never Smoker completed Never S moker eCW1 ([facility]) Smoking 11/08/2019 12:00:00 AM EDT Never Smoker completed Never S moker eCW1 ([facility]) Smoking 11/08/2019 12:00:00 AM EDT Never Smoker completed Never S moker eCW1 ([facility]) Smoking 10/08/2019 12:00:00 AM EDT Never Smoker completed Never S moker eCW1 ([facility]) Smoking 10/08/2019 12:00:00 AM EDT Never Smoker completed Never S moker eCW1 ([facility]) Vital Signs ID Date Data Source UNK Name Value Range Interpretation Code Description Data Source(s) Diastolic blood pressure 70 mm[Hg] 70 mm[Hg] eCW1 ([facility]) Systolic blood pressure 130 mm[Hg] 130 mm[Hg] e CW1 ([facility]) Body temperature 96 [degF] 96 [degF] eCW1 ([facility]) Respiratory rate 20 /min 20 /min eCW1 ([facility]) Heart rate 94 /min 94 /min eCW1 ([facility]) Body mass index (BMI) [Ratio] 69.51 kg/m2 69.51 kg/m2 eCW1 ([facility]) Body height 64 [in_i] 64 [in_i] eCW1 ([facility]) Body weight 405 [lb_av] 405 [lb_av] eCW1 ([facility]) Diastolic blood pressure 70 mm[Hg] 70 mm[Hg] eCW1 ([facility]) Systolic blood pressure 127 mm[Hg] 127 mm[Hg] e CW1 ([facility]) Body temperature 97.4 [degF] 97.4 [degF] eCW1 ( [facility]) Respiratory rate 21 /min 21 /min eCW1 ([facility]) Heart rate 66 /min 66 /min eCW1 ([facility]) Body mass index (BMI) [Ratio] 69.20 kg/m2 69.20 kg/m2 eCW1 ([facility]) Body height 64 [in_i] 64 [in_i] eCW1 ([facility]) Body weight 403.2 [lb_av] 403.2 [lb_av] eCW1 ([facility]) Diastolic blood pressure 77 mm[Hg] 77 mm[Hg] eCW1 ([facility]) Systolic blood pressure 178 mm[Hg] 178 mm[Hg] e CW1 ([facility]) Body temperature 99.6 [degF] 99.6 [degF] eCW1 ( [facility]) Respiratory rate 20 /min 20 /min eCW1 ([facility]) Heart rate 75 /min 75 /min eCW1 ([facility]) Body mass index (BMI) [Ratio] 70.40 kg/m2 70.40 kg/m2 eCW1 ([facility]) Body height 64 [in_i] 64 [in_i] eCW1 ([facility]) Body weight 410.2 [lb_av] 410.2 [lb_av] eCW1 ([facility]) Diastolic blood pressure 60 mm[Hg] 60 mm[Hg] eCW1 ([facility]) Systolic blood pressure 122 mm[Hg] 122 mm[Hg] e CW1 ([facility]) Body temperature 98.5 [degF] 98.5 [degF] eCW1 ( [facility]) Respiratory rate 20 /min 20 /min eCW1 ([facility]) Heart rate 57 /min 57 /min eCW1 ([facility]) Body mass index (BMI) [Ratio] 69.85 kg/m2 69.85 kg/m2 eCW1 ([facility]) Body height 64 [in_i] 64 [in_i] eCW1 ([facility]) Body weight 407 [lb_av] 407 [lb_av] eCW1 ([facility]) Diastolic blood pressure 80 mm[Hg] 80 mm[Hg] eCW1 ([facility]) Systolic blood pressure 140 mm[Hg] 140 mm[Hg] e CW1 ([facility]) Body temperature 97 [degF] 97 [degF] eCW1 ([facility]) Respiratory rate 20 /min 20 /min eCW1 ([facility]) Heart rate 71 /min 71 /min eCW1 ([facility]) Body mass index (BMI) [Ratio] 70.20 kg/m2 70.20 kg/m2 eCW1 ([facility]) Body height 64 [in_i] 64 [in_i] eCW1 ([facility]) Body weight 409 [lb_av] 409 [lb_av] eCW1 ([facility]) Diastolic blood pressure 98 mm[Hg] 98 mm[Hg] eCW1 ([facility]) Systolic blood pressure 199 mm[Hg] 199 mm[Hg] e CW1 ([facility]) Body temperature 96.4 [degF] 96.4 [degF] eCW1 ( [facility]) Respiratory rate 20 /min 20 /min eCW1 ([facility]) Heart rate 85 /min 85 /min eCW1 ([facility]) Body mass index (BMI) [Ratio] 68.93 kg/m2 68.93 kg/m2 eCW1 ([facility]) Body height 64 [in_i] 64 [in_i] eCW1 ([facility]) Body weight 401.6 [lb_av] 401.6 [lb_av] eCW1 ([facility]) Diastolic blood pressure 114 mm[Hg] 114 mm[Hg] eCW1 ([facility]) Systolic blood pressure 172 mm[Hg] 172 mm[Hg] e CW1 ([facility]) Body temperature 97.0 [degF] 97.0 [degF] eCW1 ( [facility]) Respiratory rate 20 /min 20 /min eCW1 ([facility]) Heart rate 78 /min 78 /min eCW1 ([facility]) Body mass index (BMI) [Ratio] 69.82 kg/m2 69.82 kg/m2 eCW1 ([facility]) Body height 64 [in_i] 64 [in_i] eCW1 ([facility]) Body weight 406.8 [lb_av] 406.8 [lb_av] eCW1 ([facility]) Diastolic blood pressure 75 mm[Hg] 75 mm[Hg] eCW1 ([facility]) Systolic blood pressure 124 mm[Hg] 124 mm[Hg] e CW1 ([facility]) Body temperature 97.7 [degF] 97.7 [degF] eCW1 ( [facility]) Respiratory rate 20 /min 20 /min eCW1 ([facility]) Heart rate 59 /min 59 /min eCW1 ([facility]) Body mass index (BMI) [Ratio] 69.37 kg/m2 69.37 kg/m2 eCW1 ([facility]) Body height 64 [in_i] 64 [in_i] eCW1 ([facility]) Body weight 404.2 [lb_av] 404.2 [lb_av] eCW1 ([facility]) Diastolic blood pressure 80 mm[Hg] 80 mm[Hg] eCW1 ([facility]) Systolic blood pressure 130 mm[Hg] 130 mm[Hg] e CW1 ([facility]) Body temperature 97.1 [degF] 97.1 [degF] eCW1 ( [facility]) Respiratory rate 20 /min 20 /min eCW1 ([facility]) Heart rate 94 /min 94 /min eCW1 ([facility]) Body mass index (BMI) [Ratio] 69.17 kg/m2 69.17 kg/m2 eCW1 ([facility]) Body height 64 [in_i] 64 [in_i] eCW1 ([facility]) Body weight 403 [lb_av] 403 [lb_av] eCW1 ([facility]) Diastolic blood pressure 82 mm[Hg] 82 mm[Hg] eCW1 ([facility]) Systolic blood pressure 132 mm[Hg] 132 mm[Hg] e CW1 ([facility]) Body temperature 97.1 [degF] 97.1 [degF] eCW1 ( [facility]) Respiratory rate 20 /min 20 /min eCW1 ([facility]) Heart rate 97 /min 97 /min eCW1 ([facility]) Body mass index (BMI) [Ratio] 68.82 kg/m2 68.82 kg/m2 eCW1 ([facility]) Body height 64 [in_i] 64 [in_i] eCW1 ([facility]) Body weight 401 [lb_av] 401 [lb_av] eCW1 ([facility]) Body mass index (BMI) [Ratio] 74.3 kg/m2 74.3 k g/m2 MEDENT ([facility]) Body weight 406.00 [lb_av] 406.00 [lb_av] MEDEN T ([facility]) Body height 62 [in_i] 62 [in_i] MEDENT ([facility]) 5'2" Body mass index (BMI) [Ratio] 69.0 kg/m2 69.0 k g/m2 MEDENT ([facility]) Body weight 390.81 [lb_av] 390.81 [lb_av] MEDEN T ([facility]) Diastolic blood pressure 78 mm[Hg] 78 mm[Hg] eCW1 ([facility]) Systolic blood pressure 132 mm[Hg] 132 mm[Hg] e CW1 ([facility]) Body temperature 97.1 [degF] 97.1 [degF] eCW1 ( [facility]) Respiratory rate 18 /min 18 /min eCW1 ([facility]) Heart rate 94 /min 94 /min eCW1 ([facility]) Body mass index (BMI) [Ratio] 69.17 kg/m2 69.17 kg/m2 eCW1 ([facility]) Body height 64 [in_us] 64 [in_us] eCW1 ([facility]) Body weight Measured 403 [lb_av] 403 [lb_av] eC W1 ([facility]) Diastolic blood pressure 80 mm[Hg] 80 mm[Hg] eCW1 ([facility]) Systolic blood pressure 134 mm[Hg] 134 mm[Hg] e CW1 ([facility]) Body temperature 96.8 [degF] 96.8 [degF] eCW1 ( [facility]) Respiratory rate 20 /min 20 /min eCW1 ([facility]) Heart rate 95 /min 95 /min eCW1 ([facility]) Body mass index (BMI) [Ratio] 67.97 kg/m2 67.97 kg/m2 W1 ([facility]) Body height 64 [in_us] 64 [in_us] eCW1 ([facility]) Body weight Measured 396 [lb_av] 396 [lb_av] eC W1 ([facility]) Diastolic blood pressure 82 mm[Hg] 82 mm[Hg] eCW1 ([facility]) Systolic blood pressure 130 mm[Hg] 130 mm[Hg] e CW1 ([facility]) Body temperature 97 [degF] 97 [degF] eCW1 ([facility]) Respiratory rate 20 /min 20 /min eCW1 ([facility]) Heart rate 90 /min 90 /min eCW1 ([facility]) Body mass index (BMI) [Ratio] 68.31 kg/m2 68.31 kg/m2 eCW1 ([facility]) Body height 64 [in_i] 64 [in_i] eCW1 ([facility]) Body weight 398 [lb_av] 398 [lb_av] eCW1 ([facility]) Diastolic blood pressure 76 mm[Hg] 76 mm[Hg] eCW1 ([facility]) Systolic blood pressure 130 mm[Hg] 130 mm[Hg] e CW1 ([facility]) Body temperature 96.9 [degF] 96.9 [degF] eCW1 ( [facility]) Respiratory rate 20 /min 20 /min eCW1 ([facility]) Heart rate 84 /min 84 /min eCW1 ([facility]) Body mass index (BMI) [Ratio] 66.94 kg/m2 66.94 kg/m2 eCW1 ([facility]) Body height 64 [in_us] 64 [in_us] eCW1 ([facility]) Body weight Measured 390 [lb_av] 390 [lb_av] eC W1 ([facility]) Diastolic blood pressure 99 mm[Hg] 99 mm[Hg] eCW1 ([facility]) Systolic blood pressure 151 mm[Hg] 151 mm[Hg] e CW1 ([facility]) Body temperature 97.2 [degF] 97.2 [degF] eCW1 ( [facility]) Respiratory rate 22 /min 22 /min eCW1 ([facility]) Heart rate 83 /min 83 /min eCW1 ([facility]) Body mass index (BMI) [Ratio] 67.28 kg/m2 67.28 kg/m2 eCW1 ([facility]) Body height 64 [in_us] 64 [in_us] eCW1 ([facility]) Body weight Measured 392 [lb_av] 392 [lb_av] eC W1 ([facility]) Diastolic blood pressure 74 mm[Hg] 74 mm[Hg] eCW1 ([facility]) Systolic blood pressure 120 mm[Hg] 120 mm[Hg] e CW1 ([facility]) Body temperature 96.4 [degF] 96.4 [degF] eCW1 ( [facility]) Respiratory rate 18 /min 18 /min eCW1 ([facility]) Heart rate 88 /min 88 /min eCW1 ([facility]) Body mass index (BMI) [Ratio] 67.11 kg/m2 67.11 kg/m2 eCW1 ([facility]) Body height 64 [in_us] 64 [in_us] eCW1 ([facility]) Body weight Measured 391 [lb_av] 391 [lb_av] eC W1 ([facility]) ID Date Data Source [id number] 06/04/2020 02:04:55 PM [facility] Name Value Range Interpretation Code Description Data Source(s) PREFERRED NAME [facility] ID Date Data Source [id number] 06/23/2020 10:30:53 AM [facility] Name Value Range Interpretation Code Description Data Source(s) PREFERRED NAME [facility] PREFERRED NAME [facility] ID Date Data Source [id number] 04/14/2020 03:36:51 PM [facility] Name Value Range Interpretation Code Description Data Source(s) PREFERRED NAME [facility] ID Date Data Source [id number] 04/14/2020 03:43:34 PM [facility] Name Value Range Interpretation Code Description Data Source(s) PREFERRED NAME [facility] Patient Treatment Plan of Care Planned Activity Planned Date Details Description Data Source (s) 24 HR Oxybutynin chloride 10 MG Extended Release Oral Tablet 06/17/2020 12:00:00 AM EST eCW1 ([facility]) 24 HR Oxybutynin chloride 10 MG Extended Release Oral Tablet 06/17/2020 12:00:00 AM EST eCW1 ([facility]) 24 HR Oxybutynin chloride 10 MG Extended Release Oral Tablet 06/17/2020 12:00:00 AM EST eCW1 ([facility]) Acetaminophen 300 MG / Codeine Phosphate 60 MG Oral Ta blet 05/13/2020 12:00:00 AM EST eCW1 ([facility]) Acetaminophen 300 MG / Codeine Phosphate 60 MG Oral Ta blet 05/13/2020 12:00:00 AM EST eCW1 ([facility]) Acetaminophen 300 MG / Codeine Phosphate 60 MG Oral Ta blet 05/13/2020 12:00:00 AM EST eCW1 ([facility]) Acetaminophen 300 MG / Codeine Phosphate 60 MG Oral Ta blet 05/13/2020 12:00:00 AM EST eCW1 ([facility]) Acetaminophen 300 MG / Codeine Phosphate 60 MG Oral Ta blet 05/13/2020 12:00:00 AM EST eCW1 ([facility]) Acetaminophen 300 MG / Codeine Phosphate 60 MG Oral Ta blet 05/13/2020 12:00:00 AM EST eCW1 ([facility]) apixaban 2.5 MG Oral Tablet [Eliquis] 05/06/2020 12:00:00 AM EST [facility]CW1 [facility] [facility] apixaban 2.5 MG Oral Tablet [Eliquis] 05/06/2020 12:00:00 AM EST eCW1 ([facility]) apixaban 2.5 MG Oral Tablet [Eliquis] 05/06/2020 12:00:00 AM EST eCW1 ([facility]) apixaban 2.5 MG Oral Tablet [Eliquis] 05/06/2020 12:00:00 AM EST eCW1 ([facility]) apixaban 2.5 MG Oral Tablet [Eliquis] 05/06/2020 12:00:00 AM EST eCW1 ([facility]) apixaban 2.5 MG Oral Tablet [Eliquis] 05/06/2020 12:00:00 AM EST eCW1 ([facility]) apixaban 2.5 MG Oral Tablet [Eliquis] 05/06/2020 12:00:00 AM EST eCW1 ([facility]) apixaban 2.5 MG Oral Tablet [Eliquis] 05/06/2020 12:00:00 AM EST eCW1 ([facility]) apixaban 2.5 MG Oral Tablet [Eliquis] 05/06/2020 12:00:00 AM EST eCW1 ([facility]) Aimovig 140 MG/ML Subcutaneous Solution Auto-injector 03/11/2020 12:00:00 AM [facility] gabapentin 600 MG Oral Tablet 02/28/2020 12:00:00 AM EDT eCW1 ([facility]) gabapentin 600 MG Oral Tablet 02/28/2020 12:00:00 AM EDT eCW1 ([facility]) gabapentin 600 MG Oral Tablet 02/28/2020 12:00:00 AM EDT eCW1 ([facility]) gabapentin 600 MG Oral Tablet 02/28/2020 12:00:00 AM EDT eCW1 ([facility]) gabapentin 600 MG Oral Tablet 02/28/2020 12:00:00 AM EDT eCW1 ([facility]) gabapentin 600 MG Oral Tablet 02/28/2020 12:00:00 AM EDT eCW1 ([facility]) gabapentin 600 MG Oral Tablet 02/28/2020 12:00:00 AM [facility] gabapentin 600 MG Oral Tablet 02/28/2020 12:00:00 AM EDT eCW1 ([facility]) 24 HR Bupropion Hydrochloride 150 MG Extended Release Oral Tablet [Wellbutrin] 02/28/2020 12:00:00 AM EDT eCW1 ([facility]) Amoxicillin 500 MG Oral Capsule 02/28/2020 12:00:00 AM EDT eCW1 ([facility]) pregabalin 150 MG Oral Capsule [Lyrica] 11/08/2019 12:00:00 AM EDT eCW1 ([facility]) pregabalin 150 MG Oral Capsule [Lyrica] 11/08/2019 12:00:00 AM EDT eCW1 ([facility]) pregabalin 150 MG Oral Capsule [Lyrica] 11/08/2019 12:00:00 AM EDT eCW1 ([facility]) pregabalin 150 MG Oral Capsule [Lyrica] 11/08/2019 12:00:00 AM EDT eCW1 ([facility]) pregabalin 150 MG Oral Capsule [Lyrica] 11/08/2019 12:00:00 AM EDT eCW1 ([facility]) Prednisone 20 MG Oral Tablet 10/31/2019 12:00:00 AM [facility] pregabalin 100 MG Oral Capsule [Lyrica] 10/08/2019 12:00:00 AM EDT eCW1 ([facility]) pregabalin 100 MG Oral Capsule [Lyrica] 10/08/2019 12:00:00 AM EDT eCW1 ([facility]) pregabalin 100 MG Oral Capsule [Lyrica] 10/08/2019 12:00:00 AM EDT eCW1 ([facility]) pregabalin 100 MG Oral Capsule 10/08/2019 12:00:[address] [facility] Triamcinolone Acetonide 1 MG/ML Topical Cream 09/09/2019 12:00:00 A M EDT eCW1 ([facility]) pregabalin 75 MG Oral Capsule [Lyrica] 09/09/2019 12:00:00 AM EDT eCW1 ([facility]) Triamcinolone Acetonide 1 MG/ML Topical Cream 09/09/2019 12:00:00 A M EDT eCW1 ([facility]) gabapentin 300 MG Oral Capsule 08/30/2019 12:00:00 AM [facility] methylPREDNISolone 4 MG Oral Tablet Therapy Pack (MEDR OL DOSEPACK) 07/18/2019 12:00:00 AM [facility] duloxetine 60 MG Delayed Release Oral Capsule [Cymbalt a] 07/16/2019 12:00:00 AM EST eCW1 ([facility]) duloxetine 60 MG Delayed Release Oral Capsule [Cymbalt a] 07/16/2019 12:00:00 AM EST eCW1 ([facility]) duloxetine 60 MG Delayed Release Oral Capsule [Cymbalt a] 07/16/2019 12:00:00 AM EST eCW1 ([facility]) duloxetine 60 MG Delayed Release Oral Capsule [Cymbalt a] 07/16/2019 12:00:00 AM EST eCW1 ([facility]) duloxetine 60 MG Delayed Release Oral Capsule [Cymbalt a] 07/16/2019 12:00:00 AM EST eCW1 ([facility]) duloxetine 60 MG Delayed Release Oral Capsule [Cymbalt a] 07/16/2019 12:00:00 AM EST eCW1 ([facility]) duloxetine 60 MG Delayed Release Oral Capsule [Cymbalt a] 07/16/2019 12:00:00 AM EST eCW1 ([facility]) duloxetine 60 MG Delayed Release Oral Capsule [Cymbalt a] 07/16/2019 12:00:00 AM EST eCW1 ([facility]) duloxetine 60 MG Delayed Release Oral Capsule [Cymbalt a] 07/16/2019 12:00:00 AM EST eCW1 ([facility]) duloxetine 60 MG Delayed Release Oral Capsule [Cymbalt a] 07/16/2019 12:00:00 AM EST eCW1 ([facility]) duloxetine 60 MG Delayed Release Oral Capsule [Cymbalt a] 07/16/2019 12:00:00 AM EST eCW1 ([facility]) duloxetine 60 MG Delayed Release Oral Capsule [Cymbalt a] 07/16/2019 12:00:00 AM EST eCW1 ([facility]) duloxetine 60 MG Delayed Release Oral Capsule [Cymbalt a] 07/16/2019 12:00:00 AM EST eCW1 ([facility]) duloxetine 60 MG Delayed Release Oral Capsule [Cymbalt a] 07/16/2019 12:00:00 AM EST eCW1 ([facility]) duloxetine 60 MG Delayed Release Oral Capsule [Cymbalt a] 07/16/2019 12:00:00 AM EST eCW1 ([facility]) duloxetine 60 MG Delayed Release Oral Capsule [Cymbalt a] 07/16/2019 12:00:00 AM EST eCW1 ([facility]) Phenazopyridine hydrochloride 200 MG Delayed Release O ral Tablet 07/09/2019 12:00:00 AM [facility] Hydrochlorothiazide 12.5 MG / Lisinopril 10 MG Oral Ta blet 06/20/2019 12:00:00 AM [facility] benzonatate 100 MG Oral Capsule [Tessalon Perles] 05/17/2019 12: 00:00 AM EST eCW1 ([facility]) Amoxicillin 500 MG Oral Capsule 03/22/2019 12:00:00 AM [facility] Cholecalciferol 2000 UNT Oral Capsule 01/31/2019 12:00:00 AM [facility] tizanidine 4 MG Oral Tablet 12/14/2018 12:00:00 AM [facility] Naproxen 500 MG Oral Tablet 12/12/2018 12:00:00 AM [facility] 24 HR Bupropion Hydrochloride 300 MG Extended Release Oral Tablet 05/03/2018 12:00:00 AM [facility] Hydrochlorothiazide 12.5 MG Oral Tablet 11/08/2010 12:00:00 AM [facility] potassium citrate 5 MEQ Extended Release Oral Tablet 011 12:00:00 AM [facility] Aspirin 81 MG Delayed Release Oral Tablet [facility] Folic Acid [address] [facility] Acetaminophen 325 MG / Oxycodone Hydrochloride [address] [facility] Tamsulosin hydrochloride 0.[address] [facility] clopidogrel [address] [facility] Mupirocin 0.02 MG/MG Topical Ointment [facility] buspirone hydrochloride [address] [facility] Ranitidine [address] [facility]
[2020-06-30 02:12] LABS: BASO % 0.3 % (0.0-1.0); EOS # 0.1 10^3/uL (0.0-0.5); HEMATOCRIT 43.1 % (36.0-47.0); HEMOGLOBIN 13.3 g/dl (12.0-15.5); LYMPH # 1.3 10^3/uL (1.5-5.0); LYMPH % 17.8 % (24.0-44.0); MEAN CORPUSCULAR HGB CONC 30.9 g/dl (32.0-36.5); MEAN CORPUSCULAR VOLUME 93.9 fl (80.0-96.0); MONO # 0.6 10^3/uL (0.0-0.8); MONO % 8.5 % (0.0-8.0); NEUTROPHILS # 5.3 10^3/uL (1.5-8.5); PLATELET COUNT, AUTOMATED 167 10^3/uL (150-450); RED BLOOD COUNT 4.59 10^6/uL (4.00-5.40); WHITE BLOOD COUNT 7.3 10^3/uL (4.0-10.0)
[2020-06-30 02:40] LABS: ALBUMIN 3.5 GM/DL (3.2-5.2); BILIRUBIN,DIRECT 0.1 MG/DL (0.0-0.2); BILIRUBIN,TOTAL 0.3 MG/DL (0.2-1.0); TOTAL PROTEIN 6.6 GM/DL (6.4-8.2)
[2020-06-30 02:52] LABS: INR 0.94; PROTHROMBIN TIME 12.8 SECONDS (12.5-14.3)
[2020-06-30 02:53] LABS: PARTIAL THROMBOPLASTIN TIME 27.4 SECONDS (24.2-38.5)
[2020-06-30] MEDS ORDERED: ISOVUE-370 76% 100ML VIAL As Ordered ONE (03:14)
[2020-06-30] MEDS ORDERED: METOCLOPRAMIDE INJ 10MG/2ML VIAL (J2765 PER 1) IV ONE (03:15)
--- NOTE | 2020-06-30 04:19 | REPVR ---
PROCEDURE INFORMATION: Exam: CT Abdomen And Pelvis With Contrast Exam date and time: 06/30/2020 3:25 AM Age: 64 years old Clinical indication: Abdominal pain TECHNIQUE: Imaging protocol: Computed tomography of the abdomen and pelvis with contrast. Radiation optimization: All CT scans at this facility use at least one of these dose optimization techniques: automated exposure control; mA and/or kV adjustment per patient size (includes targeted exams where dose is matched to clinical indication); or iterative reconstruction. Contrast material: ISOVUE 370; Contrast volume: 100 ml; Contrast route: INTRAVENOUS (IV); COMPARISON: CT ABD/PEL W/IV CONTRAST ONLY 01/10/2020 7:07 PM FINDINGS: Lungs: Scattered areas of minimal subpleural ground-glass infiltrate, right greater than left in the lung bases. Liver: Normal. No mass. Gallbladder and bile ducts: Normal. No calcified stones. No ductal dilation. Pancreas: Normal. No ductal dilation. Spleen: Normal. No splenomegaly. Adrenal glands: Normal. No mass. Kidneys and ureters: Nonobstructing bilateral renal calculi. There is an exophytic left renal cyst measuring up to 2.3 cm which appears to reflect a simple cyst. No follow-up imaging is recommended. Delayed left nephrogram with moderate hydronephrosis with periureteral edema which extends to a 2 mm UPJ calculus. Stomach and bowel: Status post gastric stapling with suture line proximally. Appendix: A normal appendix is seen. Intraperitoneal space: Unremarkable. No free air. No significant fluid collection. Vasculature: Unremarkable. No abdominal aortic aneurysm. Lymph nodes: Unremarkable. No enlarged lymph nodes. Urinary bladder: Unremarkable as visualized. Reproductive: Status post hysterectomy. Bones/joints: Status post sternotomy. Status post sternotomy and aortic valve replacement. Facet arthropathy of the lower lumbar spine with grade 1 anterolisthesis of L3 relative to L4 are and to a lesser degree L4 relative to L5. Soft tissues: Laxity of the anterior abdominal wall with broad-based protrusion of abdominal contents, greatest toward the pelvis. IMPRESSION: 1. 2 mm left UPJ calculus with obstructive uropathy of the left upper tract. 2. Nonobstructing bilateral renal calculi. 3. Status post sternotomy and aortic valve replacement. 4. Scattered areas of minimal subpleural ground-glass infiltrate in the lung bases consistent with pneumonia. 5. Status post proximal gastric surgery. 6. Status post hysterectomy. COMMENTS: Consistent with the [employer]'s Incidental Findings Committee white paper (J Am Rox Radiol 2018): Any incidental renal lesion less than 1 cm or classified as too small to characterize, or any incidental cystic renal lesion characterized as simple-appearing, is likely benign. No follow-up imaging is recommended for these lesions per consensus recommendations based on imaging criteria. Electronically signed by: Adal Cope On 06/30/2020 04:18:55 AM
[2020-06-30] MEDS: HYDROMORPHONE HCL 0.5 MG/ 0.5 ML SYRINGE (J1170 PER 1) IV PRN ×2 (04:38→05:09)
[2020-06-30] MEDS ORDERED: KETOROLAC 30 MG/ML 1ML VIAL IV ONE (04:45)
[2020-06-30 05:35] VITALS: BP 145/81
[2020-06-30] MEDS ORDERED: PERC5TAB12 PO (05:43)
[2020-06-30] MEDS ORDERED: AMOX500C PO (05:43)
[2020-06-30] MEDS ORDERED: FLOM0.4C39 PO (05:43)
[2020-06-30] MEDS ORDERED: OXYCODONE/APAP 5MG/325MG(BULK FOR ED) 1 TABLET PO ONE (05:45)
[2020-06-30] MEDS ORDERED: TAMSULOSIN 0.4 MG CAP PO ONE (05:45)
== END 2020-06-30 05:55 | disposition home or self-care (01) ==
LOC: M ED 23:09
DX: N21.1 Calculus in urethra (principal); R91.8 Other nonspecific abnormal finding of lung field; Z95.4 Presence of other heart-valve replacement; E11.40 Type 2 diabetes mellitus with diabetic neuropathy, unspecified; I10 Essential (primary) hypertension; E78.5 Hyperlipidemia, unspecified; Z98.84 Bariatric surgery status; Z86.711 Personal history of pulmonary embolism; Z87.442 Personal history of urinary calculi; Z86.14 Personal history of Methicillin resistant Staphylococcus aureus infection; Z96.653 Presence of artificial knee joint, bilateral; Z79.01 Long term (current) use of anticoagulants; Z79.899 Other long term (current) drug therapy; Z88.0 Allergy status to penicillin; Z88.2 Allergy status to sulfonamides; Z88.1 Allergy status to other antibiotic agents; Z91.89 Other specified personal risk factors, not elsewhere classified; Z88.8 Allergy status to other drugs, medicaments and biological substances; Z88.5 Allergy status to narcotic agent
CPT/HCPCS: 74177; 80047; 80076; 81001; 83605; 83690; 85025; 85610; 85730; 87086; 96374; 96375; 96376; 99284; J1170; J1200; J1885; J2270; J2765; Q9967

== ENCOUNTER 2020-07-02 14:51 | Day surgery (SDC) | payer MEDICARE, MEDICAID ==
[~2020-07-02] VITALS: Ht 162.6 cm; Wt 181.4 kg
[~2020-07-02 14:51] MED LIST changes: +AMOX500C PO
--- OUTSIDE RECORDS SUMMARY | 2020-07-02 15:00 | CCD ---
Author Author [facility] Organization [facility] Address Unknown Phone Unavailable Care Team Providers Care [facility] Reeds Cutter Name Role Phone IRINA VIEYRA MD Unavailable [...] SETTER, Bhavesh ACOSTA MD Unavailable Unavailable SETTER, Bhvaesh ACOSTA MD Unavailable Unavailable SETTER, Bhavesh ACOSTA MD Unavailable Unavailable SETTER, Bhavesh ACOSTA MD Unavailable Unavailable SETTER, Bhavesh ACOSTA MD Unavailable Unavailable SETTER, Bhavesh ACOSTA MD Unavailable Unavailable SETTER, Bhavesh ACOSTA MD Unavailable Unavailable SETTER, Bhavesh ACOSTA MD Unavailable Unavailable SETTER, Bhavesh CAOSTA MD Unavailable Unavailable SETTER, Bhavesh ACOSTA MD [...] Oropeza MD Unavailable Unavailable Fons, M Sergio ENTRY LEVEL INSTALLATION TECHNICIAN Unavailable Unavailable Fons, M Sergio ENTRY LEVEL INSTALLATION TECHNICIAN Unavailable Unavailable Fons, M Sergio ENTRY LEVEL INSTALLATION TECHNICIAN Unavailable Unavailable Fons, M Sergio ENTRY LEVEL INSTALLATION TECHNICIAN Unavailable Unavailable Fons, M Sergio ENTRY LEVEL INSTALLATION TECHNICIAN Unavailable Unavailable Fons, M Sergio ENTRY LEVEL INSTALLATION TECHNICIAN Unavailable Unavailable Fons, M Sergio ENTRY LEVEL INSTALLATION TECHNICIAN Unavailable Unavailable Fons, M Sergio ENTRY LEVEL INSTALLATION TECHNICIAN Unavailable Unavailable Fons, M Sergio ENTRY LEVEL INSTALLATION TECHNICIAN Unavailable Unavailable Fons, M Sergio ENTRY LEVEL INSTALLATION TECHNICIAN Unavailable Unavailable Fons, M Sergio ENTRY LEVEL INSTALLATION TECHNICIAN Unavailable Unavailable Fons, M Sergio ENTRY LEVEL INSTALLATION TECHNICIAN Unavailable Unavailable Fons, M Sergio ENTRY LEVEL INSTALLATION TECHNICIAN Unavailable Unavailable Fons, M Sergio ENTRY LEVEL INSTALLATION TECHNICIAN Unavailable Unavailable Fons, M Sergio ENTRY LEVEL INSTALLATION TECHNICIAN Unavailable Unavailable Fons, M Sergio ENTRY LEVEL INSTALLATION TECHNICIAN Unavailable Unavailable Fons, M Sergio ENTRY LEVEL INSTALLATION TECHNICIAN Unavailable Unavailable Fons, M Sergio ENTRY LEVEL INSTALLATION TECHNICIAN Unavailable Unavailable Fons, M Sergio ENTRY LEVEL INSTALLATION TECHNICIAN Unavailable Unavailable Fons, M Sergio ENTRY LEVEL INSTALLATION TECHNICIAN Unavailable Unavailable Fons, M Sergio ENTRY LEVEL INSTALLATION TECHNICIAN Unavailable Unavailable Fons, M Sergio ENTRY LEVEL INSTALLATION TECHNICIAN Unavailable Unavailable Fons, M Sergio ENTRY LEVEL INSTALLATION TECHNICIAN Unavailable Unavailable Fons, M Sergio ENTRY LEVEL INSTALLATION TECHNICIAN Unavailable Unavailable Fons, M Sergio ENTRY LEVEL INSTALLATION TECHNICIAN Unavailable Unavailable Fons, M Sergio ENTRY LEVEL INSTALLATION TECHNICIAN Unavailable Unavailable Fons, M Sergio ENTRY LEVEL INSTALLATION TECHNICIAN Unavailable Unavailable Fons, M Sergio ENTRY LEVEL INSTALLATION TECHNICIAN Unavailable Unavailable Fons, M Sergio ENTRY LEVEL INSTALLATION TECHNICIAN Unavailable Unavailable Fons, M Sergio ENTRY LEVEL INSTALLATION TECHNICIAN Unavailable Unavailable Fons, M Sergio ENTRY LEVEL INSTALLATION TECHNICIAN Unavailable Unavailable Fons, M Sergio ENTRY LEVEL INSTALLATION TECHNICIAN Unavailable Unavailable Fons, M Sergio ENTRY LEVEL INSTALLATION TECHNICIAN Unavailable Unavailable Fons, M Sergio ENTRY LEVEL INSTALLATION TECHNICIAN Unavailable Unavailable Fons, M Sergio ENTRY LEVEL INSTALLATION TECHNICIAN Unavailable Unavailable Fons, M Sergio ENTRY LEVEL INSTALLATION TECHNICIAN Unavailable Unavailable Fons, M Sergio ENTRY LEVEL INSTALLATION TECHNICIAN Unavailable Unavailable Fons, M Sergio ENTRY LEVEL INSTALLATION TECHNICIAN Unavailable Unavailable Fons, M Sergio ENTRY LEVEL INSTALLATION TECHNICIAN Unavailable Unavailable Fons, M Sergio ENTRY LEVEL INSTALLATION TECHNICIAN Unavailable Unavailable Fons, M Sergio ENTRY LEVEL INSTALLATION TECHNICIAN Unavailable Unavailable Fons, M Sergio ENTRY LEVEL INSTALLATION TECHNICIAN Unavailable Unavailable Fons, M Sergio ENTRY LEVEL INSTALLATION TECHNICIAN Unavailable Unavailable Fons, M Sergio ENTRY LEVEL INSTALLATION TECHNICIAN Unavailable Unavailable Fons, M Sergio ENTRY LEVEL INSTALLATION TECHNICIAN Unavailable Unavailable Fons, M Sergio ENTRY LEVEL INSTALLATION TECHNICIAN Unavailable Unavailable Fons, M Sergio ENTRY LEVEL INSTALLATION TECHNICIAN Unavailable Unavailable Fons, M Sergio ENTRY LEVEL INSTALLATION TECHNICIAN Unavailable Unavailable Fons, M Sergio ENTRY LEVEL INSTALLATION TECHNICIAN Unavailable Unavailable Fons, M Sergio ENTRY LEVEL INSTALLATION TECHNICIAN Unavailable Unavailable Fons, M Sergio ENTRY LEVEL INSTALLATION TECHNICIAN Unavailable Unavailable Fons, M Sergio ENTRY LEVEL INSTALLATION TECHNICIAN Unavailable Unavailable Fons, M Sergio ENTRY LEVEL INSTALLATION TECHNICIAN Unavailable Unavailable Fons, M Sergio ENTRY LEVEL INSTALLATION TECHNICIAN Unavailable Unavailable Fons, M Sergio ENTRY LEVEL INSTALLATION TECHNICIAN Unavailable Unavailable Barry Chong MD Unavailable Unavailable [...] Unavailable Barry Chong MD Unavailable Unavailable Barry Cohng MD Unavailable Unavailable Barry Chong MD Unavailable [...] Almaraz MD Unavailable Unavailable LY, R DAVID MAGAZINE PUBLISHER Unavailable Unavailable LY, R DAVID MAGAZINE PUBLISHER Unavailable Unavailable LY, R DAVID MAGAZINE PUBLISHER Unavailable Unavailable LY, R DAVID MAGAZINE PUBLISHER Unavailable Unavailable LY, R DAVID MAGAZINE PUBLISHER Unavailable Unavailable LY, R DAVID MAGAZINE PUBLISHER Unavailable Unavailable LY, R DAVID MAGAZINE PUBLISHER Unavailable Unavailable LY, R DAVID MAGAZINE PUBLISHER Unavailable Unavailable LY, R DAVID MAGAZINE PUBLISHER Unavailable Unavailable LY, R DAVID MAGAZINE PUBLISHER Unavailable Unavailable LY, R DAVID MAGAZINE PUBLISHER Unavailable Unavailable LY, R DAVID MAGAZINE PUBLISHER Unavailable Unavailable LY, R DAVID MAGAZINE PUBLISHER Unavailable Unavailable LY, R DAVID MAGAZINE PUBLISHER Unavailable Unavailable LY, R DAVID MAGAZINE PUBLISHER Unavailable Unavailable LY, R DAVID MAGAZINE PUBLISHER Unavailable Unavailable LY, R DAVID MAGAZINE PUBLISHER Unavailable Unavailable LY, R DAVID MAGAZINE PUBLISHER Unavailable Unavailable LY, R DAVID MAGAZINE PUBLISHER Unavailable Unavailable LY, R DAVID MAGAZINE PUBLISHER Unavailable Unavailable LY, R DAVID MAGAZINE PUBLISHER Unavailable Unavailable LY, R DAVID MAGAZINE PUBLISHER Unavailable Unavailable LY, R DAVID MAGAZINE PUBLISHER Unavailable Unavailable LY, R DAVID MAGAZINE PUBLISHER Unavailable Unavailable LY, R DAVID MAGAZINE PUBLISHER Unavailable Unavailable LY, R DAVID MAGAZINE PUBLISHER Unavailable Unavailable LY, R DAVID MAGAZINE PUBLISHER Unavailable Unavailable LY, R DAVID MAGAZINE PUBLISHER Unavailable Unavailable LY, R DAVID MAGAZINE PUBLISHER Unavailable Unavailable LY, R DAVID MAGAZINE PUBLISHER Unavailable Unavailable LY, R DAVID MAGAZINE PUBLISHER Unavailable Unavailable LY, R DAVID MAGAZINE PUBLISHER Unavailable Unavailable LY, R DAVID MAGAZINE PUBLISHER Unavailable Unavailable LY, R DAVID MAGAZINE PUBLISHER Unavailable Unavailable LY, R DAVID MAGAZINE PUBLISHER Unavailable Unavailable LY, R DAVID MAGAZINE PUBLISHER Unavailable Unavailable LY, R DAVID MAGAZINE PUBLISHER Unavailable Unavailable LY, R DAVID MAGAZINE PUBLISHER Unavailable Unavailable LY, R DAVID MAGAZINE PUBLISHER Unavailable Unavailable LY, R DAVID MAGAZINE PUBLISHER Unavailable Unavailable LY, R DAVID MAGAZINE PUBLISHER Unavailable Unavailable Scozzari, K Lissy PA Unavailable [...] Unavailable Maring, Cezar PA Unavailable Unavailable Maring, Ceazr PA Unavailable Unavailable Maring, Cezar PA Unavailable [...] / UNKNOWN PROVIDER * Unavailable Unavailable [facility], PA-C Unavailable Unavailabl e [facility], [facility], PA-C Unavailable Unavailabl e [facility], [facility], PA-C Unavailable Unavailabl e [facility], [facility], PA-C Unavailable Unavailabl e [facility], [facility], PA-C Unavailable Unavailabl e [facility], [facility], PA-C Unavailable Unavailabl e [facility], [facility], PA-C Unavailable Unavailabl e [facility], [facility], PA-C Unavailable Unavailabl e [facility], [facility], PA-C Unavailable Unavailabl e [facility], [facility], PA-C Unavailable Unavailabl e [facility], [facility], PA-C Unavailable Unavailabl e [facility], [facility], PA-C Unavailable Unavailabl e [facility], [facility], PA-C Unavailable Unavailabl e [facility], [facility], PA-C Unavailable Unavailabl e [facility], [facility], PA-C Unavailable Unavailabl e [facility], [facility], PA-C Unavailable Unavailabl e [facility], [facility], PA-C Unavailable Unavailabl e [facility], [facility], PA-C Unavailable Unavailabl e [facility], [facility], PA-C Unavailable Unavailabl e [facility], [facility], PA-C Unavailable Unavailabl e [facility], [facility], PA-C Unavailable Unavailabl e [facility], [facility], PA-C Unavailable Unavailabl e [facility], [facility], PA-C Unavailable Unavailabl e [facility], [facility], PA-C Unavailable Unavailabl e [facility], [facility], PA-C Unavailable Unavailabl e [facility], [facility], PA-C Unavailable Unavailabl e [facility], [facility], PA-C Unavailable Unavailabl e [facility], [facility], PA-C Unavailable Unavailabl e [facility], [facility], PA-C Unavailable Unavailabl e [facility], [facility], PA-C Unavailable Unavailabl e [facility], [facility], PA-C Unavailable Unavailabl e [facility], [facility], PA-C Unavailable Unavailabl e [facility], [facility], PA-C Unavailable Unavailabl e Lizy REYNOLDS [...] Unavailable REYNOLDS, Lizy GRANADOS MD Unavailable Unavailable PAULY, Lizy BALBUENA MD Unavailable Unavailable PAULY, Lizy BALBUENA MD Unavailable Unavailable PAULY, Lizy BALBUENA MD Unavailable Unavailable PAULY, Lizy BALBUENA MD Unavailable Unavailable PAULY, Lizy BALBUENA MD Unavailable Unavailable PAULYLizy ALEXANDRE MD Unavailable Unavailable Lizy BUENO MD Unavailable Unavailable PAULYLizy ALEXANDRE MD Unavailable Unavailable Lizy BUENO MD Unavailable Unavailable PAULYLizy Montejo MD Unavailable Unavailable PAULYLizy ALEXANDRE MD Unavailable Unavailable PAULYLizy Montejo MD Unavailable Unavailable PAULYLizy ALEXADNRE MD Unavailable Unavailable PAULYLizy ALEXANDRE MD Unavailable Unavailable PAULYLizy ALEXANDRE MD Unavailable Unavailable PAULYLizy ALEXANDRE MD Unavailable Unavailable PAULYLizy ALEXANDRE MD Unavailable Unavailable PAULYLizy Montejo MD Unavailable Unavailable PAULYLizy MD Unavailable Unavailable PAULYLizy ALEXANDRE MD Unavailable Unavailable PAULYLizy ALEXANDRE MD Unavailable Unavailable PAULYLizy ALEXANDRE MD Unavailable Unavailable PAULYLizy ALEXANDRE MD Unavailable Unavailable PAULYLizy ALEXANDRE MD Unavailable Unavailable PAULY, Lizy BALBUENA MD Unavailable Unavailable PAULY, Lizy BALBUENA MD Unavailable Unavailable PAULY, T ESHA MD [...] Unavailable Unavailable Lizy BUENO MD Unavailable Unavailable PAULY, Lizy BALBUEAN MD Unavailable Unavailable PAULY, Lizy BALBUENA MD Unavailable Unavailable Dille, E Inés DDS [...] REYNOLDS, Lizy GRANADOS MD Unavailable Unavailable REYNOLDS, Lziy GRANADOS MD Unavailable Unavailable REYNOLDS, Lizy GRANADOS [...] Unavailable REYNOLDS, Lizy GRANADOS MD Unavailable Unavailable REYNOLSD, Lizy GRANADOS MD Unavailable Unavailable REYNOLDS, Lizy [...] is protected by Article 27-F of the [facility] Public Health law. If you continue you may have access to information: Regarding HIV / AIDS; Provided by facilities licensed or operated by the [facility] Office of Mental Health; or Provided by the [facility] Office for People With Developmental Disabilities. If such information is present, then the following [facility] mandated warning applies: This information has [...] law may result in a fine or half-way sentence or both. A general authorization for the release of medical or other information is NOT sufficient authorization for further disc losure. Allergies and Adverse Reactions Type Description Substance Reaction Status Data Source(s ) Propensity to adverse reactions MIRABEGRON mirabegron Acti ve [facility] Substance/Environmental Agent Allergy Substance/Environmenta l Agent Allergy Trimethoprim MEDENT ([facility] ) Substance/Environmental Agent Allergy Substance/Environmenta l Agent Allergy Sulfamethoxazole Anyphylaxis Severe MEDENT ([facility]) Adverse Reaction Adverse Reaction Morphine ME DENT ([facility] ) Drug allergy Morphine Sulfate Morphine IV = BURNING AN D ITCHING BUT CAN TAKE WITH BENADRYL Active eCW1 ([facility]) Drug allergy Bactrim sulfamethoxazole / trimethoprim Anaphylaxis Active eCW1 (Pending Sale To [facility]) Drug allergy Vancomycin HCl Vancomycin itching "I want to rip my skin off" Active eCW1 (Pending Sale To [facility]) Drug allergy Fentanyl Fentanyl itching "I want to rip my skin off " Active eCW1 (Pending Sale To [facility]) Drug allergy Levaquin Drug allergy IV pruritis, redness Active eCW1 (Pending Sale To [facility]) Drug allergy Penicillin V Potassium Penicillin V Rash Active eCW1 (Pending Sale To [facility]) tetracycline Tetracycline HCl Tetracycline Rash Active eCW1 (Pending Sale To [facility]) Erythromycin Erythromycin Erythromycin Rash Active eCW1 ([facility]) duracef duracef duracef Rash Active eCW1 ([facility] hospital) Adhesive Bandages Adhesive Bandages Adhesive Bandages rash,blisters Active eCW1 (Pending Sale To [facility]) duracef duracef duracef Rash Active eCW1 ([facility] hospital) Adhesive Bandages Adhesive Bandages Adhesive Bandages rash,blisters Active eCW1 (Pending Sale To [facility]) duracef duracef duracef Rash Active eCW1 ([facility] hospital) Adhesive Bandages Adhesive Bandages Adhesive Bandages rash,blisters Active eCW1 (Pending Sale To [facility]) Levaquin Levaquin Levofloxacin 750 MG Oral Tablet [Levaquin] IV pruritis, redness Active eCW1 ([facility]) duracef duracef duracef Rash Active eCW1 ([facility] hospital) Adhesive Bandages Adhesive Bandages Adhesive Bandages rash,blisters Active eCW1 (Pending Sale To [facility]) duracef duracef duracef Rash Active eCW1 (Critical access hospital) Adhesive Bandages Adhesive Bandages Adhesive Bandages rash,blisters Active eCW1 (Pending [facility] To [facility]) Family History Family Member Name Family Member Gender Family Member Status Date o f Status Description Data Source(s) Unknown Unknown Problem MEDENT ([facility], ) Mother Encounters Encounter Providers Location Date Indications Data Source(s ) Outpatient Attender: KARLA FRANCO MD 07/15/2020 12:00:00 A M [facility] Outpatient Attender: Cezar LOPEZ 06/28/19 08:58:29 AM [facility] - 06/28/2020 09:20:16 AM EST [facility] ([facility] ) Outpatient Attender: Audrey BERNARDO.REMIGIO-SJP.REMIGIO 04/2021 12:00:00 AM [facility] - 06/26/2020 01:07:00 PM EST [facility] Outpatient Referrer: Rufina Chong MD [id number] 06/23/2020 12:00:00 A [facility] Unknown [address] [facility] [address] 06/18/2020 12:00:00 AM EST eCW1 ([facility]) [place] [address] [facility] [address] 06/12/2020 12:00:00 AM EST eCW1 ([facility]) Outpatient [address] [facility] [id number] 06/11/2020 12:00:00 AM EST eCW1 ([facility]) Outpatient [address] [facility] [id number] 06/11/2020 12:00:00 AM EST eCW1 [facility] Outpatient Attender: KARLA FRANCO MDReferrer: KARLA FRANCO MD 06/11/2020 12:00:00 AM EST [facility] Unknown [address] [facility] [place] [address] 06/09/2020 12:00:00 AM EST eCW1 ([facility]) Unknown [address] [facility] [id number] 06/05/2020 12:00:00 AM EST eCW1 ([facility]) Unknown [address] [facility] [address] 06/04/2020 12:00:00 AM EST eCW1 ([facility]) (PN Proc 60) Pain Procedure 60 [address] [place] [address] 05/27/2020 12:00:00 AM EST eCW1 ([facility]) Unknown [address] [facility] [address] 05/26/2020 12:00:00 AM EST eCW1 ([facility]) Unknown [address] [facility] [address] 05/25/2020 12:00:00 AM EST eCW1 ([facility]) Outpatient [address] [facility] [id number] 05/22/2020 12:00:00 AM EST eCW1 ([facility]) Outpatient [address] [facility] [id number] 05/21/2020 12:00:00 AM EST eCW1 ([facility]) [facility] [address] [place] [address] 05/20/2020 12:00:00 AM EST eCW1 ([facility]) Unknown [address] [facility] [address] 05/06/2020 12:00:00 AM EST eCW1 [facility] Unknown [address] [facility] [place] [address] 05/06/2020 12:00:00 AM EST eCW1 ([facility] Unknown [address] [facility] [place] [address] 05/05/2020 12:00:00 AM EST eCW1 ([facility]) Unknown [address] [facility] [id number] 04/21/2020 12:00:00 AM EST eCW1 ([facility]) Outpatient Attender: KARLA FRANCO MD 04/15/2020 12:00:00 A M [facility] ([facility]) [facility] Health Scheduled Visit [address] [place] [address] 04/08/2020 12:00:00 AM EST eCW1 ([facility]) Unknown [address] [facility] [id number] 04/08/2020 12:00:00 AM EST eCW1 ([facility]) Outpatient [address] [facility] [place] [address] 04/08/2020 12:00:00 AM EST eCW1 ([facility] Unknown [address] [facility] [address] 04/01/2020 12:00:00 AM EST [facility] Outpatient Attender: DEFAULT / GENE SHAHLA / UNKNOWN PROVIDER ALIASES Referrer: KARLA FRANCO MD [id number] 03/31/2020 12:00:00 AM ES T - 04/01/2020 12:00:00 AM [facility] Outpatient Referrer: Rufina Chong MD [id number] 03/31/2020 12:00:00 A M [facility] (PN Proc 45) Pain Procedure 45 [address] [place] [address] 03/23/2020 12:00:00 AM EST eCW1 ([facility]) Unknown [address] [facility] [address] 03/20/2020 12:00:00 AM EST [facility]1 [facility]) Outpatient Attender: Inés CESPEDES 03/19/2020 03:38:01 P M [facility] Outpatient Attender: Inés GALVAN 03/18/2020 11:27:00 A [facility] Outpatient Attender: Inés CESPEDES 03/18/2020 08:38:01 A M [facility] Scheduled Visit [address] [place] [address] 03/10/2020 12:00:00 AM EDT eCW1 ([facility]) Outpatient [address] [facility] [address] 03/09/2020 12:00:00 AM EDT eCW1 ([facility]) Outpatient [address] [facility] [id number] 03/06/2020 12:00:00 AM EDT eCW1 ([facility]) Office Visit, Est Pt., Level 4 PC [address] [place] [address] 02/28/2020 12:00:00 AM EDT eCW1 ([facility]) Outpatient Attender: Lissy Johnson: Rufina Chong MD 02/19/2020 09:10:52 AM EDT [facility] Scheduled Visit [address] [place] [address] 02/14/2020 12:00:00 AM EDT eCW1 ([facility]) Unknown [address] [facility] [id number] 02/13/2020 12:00:00 AM EDT eCW1 ([facility]) Outpatient Attender: Anatoliy Rosa MD Main office - [place] 02/05/2020 11:00:00 AM EDT MEDENT ([facility]) Outpatient Attender: Sergio KEMP SJP.REMIGIO-SJP.REMIGIO 0 09:27:18 AM EDT - 02/05/2020 10:18:22 AM EDT [facility] Outpatient Attender: Inés Barrientossung CASEY WATND 01/15/2020 01:08:02 P M EDT [facility] Outpatient Attender: Inés Baca CASEY WATND 01/15/2020 11:36:02 A M EDT [facility] Outpatient Attender: Arabella LYON PA-C Physical Therapy 12/04/2019 05:30:00 PM EDT MEDENT ([facility]) Unknown [address] [facility] [address] 12/02/2019 12:00:00 AM EDT eCW1 ([facility]) Unknown [address] [facility] [address] 12/02/2019 12:00:00 AM EDT eCW1 ([facility]) Outpatient Attender: ESHA BUENO MD 11/29/2019 09:29:00 A M EDT [facility] Outpatient Referrer: DAVID LY NP 11/27/2019 1 2:00:00 AM EDT Pain in right [facility] Pain in right shoulder Outpatient Referrer: DAVID LY NP 11/27/2019 1 2:00:00 AM EDT Pain in right [facility] Pain in right shoulder ([facility]) [facility] Health Scheduled Visit [address] [place] [address] 11/25/2019 12:00:00 AM EDT eCW1 ([facility]) Outpatient Attender: Anatoliy Rosa MD Main office - [place] 11/19/2019 02:00:00 PM EDT MEDENT ([facility]) Outpatient Attender: DAVID LY NP [id number] 10/2019 12:00:00 AM EDT - 2019 02:18:36 PM EDT [facility] Outpatient Referrer: DAVID LY NP 2019 1 2:00:00 AM EDT Pain in right [facility] Pain in right shoulder Outpatient Attender: ESHA HUYNH 11/13/2019 10:09:00 A M EDT [facility] Outpatient Referrer: ROBERTA REYNOLDS MD 11/11/2019 01:46:00 PM EDT [facility] [address], [facility] [address] 11/08/2019 12:00:00 AM EDT [facility]CW1 [facility] Outpatient Attender: ROBERTA Camiloer: Rufina ortiz MD 11/06/2019 08:14:23 AM EDT [facility] [address] [address] 10/31/2019 12:00:00 AM EDT eCW1 [facility]) Outpatient Attender: DAVID LY NP 10/31/2019 12:00:0 0 AM EDT [address] [address] 10/18/2019 12:00:00 AM EDT eCW1 [facility]) Outpatient Referrer: Sandip Blanchard MD 10/17/2019 04:46:00 AM EDT [facility] Outpatient Attender: ROBERTA Herrera: Rufina ortiz MD 10/10/2019 10:54:26 AM EDT [facility] Recurring Patient Referrer: Rufina Chong MD 10/08/2019 01: 07:16 PM EDT [facility] [address], [facility] [address] 10/08/2019 12:00:00 AM EDT [facility]CW1 [facility] [place] [address] [address] 10/04/2019 12:00:00 AM EDT eCW1 ([facility]) Outpatient Referrer: Audrey LOPEZ SJP.REMIGIO-SJP.REMIGIO 12:00:00 AM EDT [facility] Recurring Patient Referrer: Rufina Chong MD 09/23/2019 03: 50:23 PM EDT [facility] [address] [address] 09/17/2019 12:00:00 AM EDT eCW1 ([facility]) [address] [address] 09/10/2019 12:00:00 AM EDT eCW1 ([facility]) [address] [address] 09/09/2019 12:00:00 AM EDT eCW1 ([facility]) [address] [address] 09/09/2019 12:00:00 AM EDT eCW1 ([facility]) [address] [address] 09/02/2019 12:00:00 AM EDT eCW1 ([facility]) [address] [address] 08/29/2019 12:00:00 AM EDT eCW1 ([facility]) Outpatient [address] [facility] [address] 08/29/2019 12:00:00 AM EDT eCW1 ([facility]) Unknown [address] [facility] [place] [address] 08/20/2019 12:00:00 AM EDT eCW1 ([facility]) Unknown [address] [facility] [address] 08/20/2019 12:00:00 AM EDT eCW1 ([facility]) Outpatient Referrer: Sandip Blanchard MD 08/07/2019 06:14:00 AM EDT [facility] Outpatient Attender: ESHA BUENO MD 08/06/2019 09:01:05 P M EDT [facility] Outpatient Attender: ROBERTA REYNOLDS MDReferrer: Rufina ortiz MD 07/25/2019 01:17:30 PM EDT [facility] Recurring Patient Referrer: Rufina Chong MD 07/18/2019 09: 18:23 AM EST [facility] Recurring Patient Referrer: Rufina Chong MD 07/18/2019 09: 15:16 AM EST [facility] Recurring Patient Referrer: IRINA VIEYRA MD 07/18/2019 09:1 2:32 AM EST [facility] [address] [address] 07/18/2019 12:00:00 AM EST eCW1 ([facility]) Recurring Patient Referrer: IRINA VIEYRA MD 07/16/2019 08:2 7:04 AM EST [facility] Recurring Patient Referrer: IRINA VIEYRA MD 07/16/2019 08:2 4:21 AM EST [facility] Recurring Patient Referrer: IRINA VIEYRA MD 07/16/2019 08:2 3:59 AM EST [facility] [address] [place] [address] 07/16/2019 12:00:00 AM EST [facility]CW[facility] [address] [address] 07/16/2019 12:00:00 AM EST eCW1 ([facility]) [address] [place] [address] 07/16/2019 12:00:00 AM EST eCW1 ([facility]) [address] [place] [address] 07/09/2019 12:00:00 AM EST eCW1 ([facility]) Outpatient Attender: Audrey [email or web address] 10/2019 08:49:51 AM EST - 06/20/2019 09:40:16 AM EST [facility] [address] [facility] [address] 06/12/2019 12:00:00 AM EST eCW1 ([facility]) Outpatient Referrer: Sandip Blanchard MD 06/04/2019 07:26:00 PM EST [facility] [address] [facility] [address] 06/04/2019 12:00:00 AM EST eCW1 ([facility]) [facility] [address] [address] 05/17/2019 12:00:00 AM EST eCW1 ([facility]) [facility] [address] [place] [address], [place] [address] 05/16/2019 12:00:00 AM EST eCW1 ([facility]) [address] [address] 05/14/2019 12:00:00 AM EST eCW1 ([facility]) Outpatient Attender: KARLA FRANCO MDReferrer: DAVID TAMAYO DS [employer] PUBLISHER [id number] 02/08/2018 12:00:00 AM EDT - 02/08/2018 02:17:32 PM EDT Morbid (severe) obesity due to excess calories [facility] Morbid (severe) obesity due to excess ca lories Immunizations Vaccine Date Status Description Data Source(s) influenza, recombinant, quadrIvalent,injectable, prese rvative free 02/28/2020 02:56:00 PM EDT completed eCW1 ([facility]) influenza, recombinant, quadrIvalent,injectable, prese rvative free 02/28/2020 02:56:00 PM EDT completed eCW1 ([facility]) influenza, recombinant, quadrIvalent,injectable, prese rvative free 02/28/2020 02:56:00 PM EDT completed eCW1 ([facility]) influenza, recombinant, quadrIvalent,injectable, prese rvative free 02/28/2020 02:56:00 PM EDT completed eCW1 ([facility]) influenza, recombinant, quadrIvalent,injectable, prese rvative free 02/28/2020 02:56:00 PM EDT completed eCW1 ([facility]) influenza, recombinant, quadrIvalent,injectable, prese rvative free 02/28/2020 02:56:00 PM EDT completed eCW1 ([facility]) influenza, recombinant, quadrIvalent,injectable, prese rvative free 02/28/2020 02:56:00 PM EDT completed eCW1 ([facility]) influenza, recombinant, quadrIvalent,injectable, prese rvative free 02/28/2020 02:56:00 PM EDT completed eCW1 ([facility]) influenza, recombinant, quadrIvalent,injectable, prese rvative free 02/28/2020 02:56:00 PM EDT completed eCW1 ([facility]) influenza, recombinant, quadrIvalent,injectable, prese rvative free 02/28/2020 02:56:00 PM EDT completed eCW1 ([facility]) influenza, recombinant, quadrIvalent,injectable, prese rvative free 02/28/2020 02:56:00 PM EDT completed eCW1 ([facility]) influenza, recombinant, quadrIvalent,injectable, prese rvative free 02/28/2020 02:56:00 PM EDT completed eCW1 ([facility]) influenza, recombinant, quadrIvalent,injectable, prese rvative free 02/28/2020 02:56:00 PM EDT completed eCW1 ([facility]) influenza, recombinant, quadrIvalent,injectable, prese rvative free 02/28/2020 02:56:00 PM EDT completed eCW1 ([facility]) influenza, recombinant, quadrIvalent,injectable, prese rvative free 02/28/2020 02:56:00 PM EDT completed eCW1 ([facility]) influenza, recombinant, quadrIvalent,injectable, prese rvative free 02/28/2020 02:56:00 PM EDT completed eCW1 ([facility]) influenza, recombinant, quadrIvalent,injectable, prese rvative free 02/28/2020 02:56:00 PM EDT completed eCW1 ([facility]) influenza, recombinant, quadrIvalent,injectable, prese rvative free 02/28/2020 02:56:00 PM EDT completed eCW1 ([facility]) influenza, recombinant, quadrIvalent,injectable, prese rvative free 02/28/2020 02:56:00 PM EDT completed eCW1 ([facility]) influenza, recombinant, quadrIvalent,injectable, prese rvative free 02/28/2020 02:56:00 PM EDT completed eCW1 ([facility]) influenza, recombinant, quadrIvalent,injectable, prese rvative free 02/28/2020 02:56:00 PM EDT completed eCW1 ([facility]) influenza, recombinant, quadrIvalent,injectable, prese rvative free 02/28/2020 02:56:00 PM EDT completed eCW1 ([facility]) influenza, recombinant, quadrIvalent,injectable, prese rvative free 02/28/2020 02:56:00 PM EDT completed eCW1 ([facility]) influenza, recombinant, quadrIvalent,injectable, prese rvative free 02/28/2020 02:56:00 PM EDT completed eCW1 ([facility]) influenza, recombinant, quadrIvalent,injectable, prese rvative free 02/28/2020 02:56:00 PM EDT completed eCW1 ([facility]) influenza, recombinant, quadrIvalent,injectable, prese rvative free 02/28/2020 02:56:00 PM EDT completed eCW1 ([facility]) influenza, recombinant, quadrIvalent,injectable, prese rvative free 02/28/2020 02:56:00 PM EDT completed eCW1 ([facility]) Medications Medication Brand Name Start Date Product Form Dose Route Admi nistrative Instructions Pharmacy Instructions Status Indications Reaction Description Data Source(s) 24 HR Oxybutynin chloride 10 MG Extended Release Oral Tablet Oxybutynin Chloride ER 10 MG Oxybutynin Chloride ER 10 MG 06/17/2020 12:00:00 AM EST 1.0 {tablet} active Oxybutynin Chloride ER 1 0 MG eCW1 (Pending Sale To [facility]) 24 HR Oxybutynin chloride 10 MG Extended Release Oral Tablet Oxybutynin Chloride ER 10 MG Oxybutynin Chloride ER 10 MG 06/17/2020 12:00:00 AM EST 1.0 {tablet} active Oxybutynin Chloride ER 1 0 MG eCW1 (Pending Sale To [facility]) 24 HR Oxybutynin chloride 10 MG Extended Release Oral Tablet Oxybutynin Chloride ER 10 MG Oxybutynin Chloride ER 10 MG 06/17/2020 12:00:00 AM EST 1.0 {tablet} active Oxybutynin Chloride ER 1 0 MG eCW1 (Pending Sale To [facility]) Myrbetriq 50 MG UNK 05/25/2020 12:00:00 AM EST 1.0 {tablet} suspended Myrbetriq 50 MG eCW1 ([facility]) Myrbetriq 50 MG UNK 05/25/2020 12:00:00 AM EST 1.0 {tablet} suspended Myrbetriq 50 MG eCW1 ([facility]) Myrbetriq 50 MG UNK 05/25/2020 12:00:00 AM EST 1.0 {tablet} active Myrbetriq 50 MG eCW1 (Pending Sale To [facility]) Myrbetriq 50 MG UNK 05/25/2020 12:00:00 AM EST 1.0 {tablet} active Myrbetriq 50 MG eCW1 (Pending Sale To [facility]) Myrbetriq 50 MG UNK 05/25/2020 12:00:00 AM EST 1.0 {tablet} suspended Myrbetriq 50 MG eCW1 ([facility]) Myrbetriq 50 MG UNK 05/25/2020 12:00:00 AM EST 1.0 {tablet} active Myrbetriq 50 MG eCW1 (Pending Sale To [facility]) Myrbetriq 50 MG UNK 05/25/2020 12:00:00 AM EST 1.0 {tablet} active Myrbetriq 50 MG eCW1 (Pending Sale To [facility]) Myrbetriq 50 MG UNK 05/25/2020 12:00:00 AM EST 1.0 {tablet} suspended Myrbetriq 50 MG eCW1 ([facility]) Myrbetriq 50 MG UNK 05/25/2020 12:00:00 AM EST 1.0 {tablet} active Myrbetriq 50 MG eCW1 (Pending Sale To [facility]) Myrbetriq 50 MG UNK 05/25/2020 12:00:00 AM EST 1.0 {tablet} active Myrbetriq 50 MG eCW1 (Pending Sale To [facility]) 24 HR mirabegron 50 MG Extended Release Oral Tablet [Myrbetriq] MYRBETRIQ 50 MG TB24 MYRBETRIQ 50 MG TB24 05/25/2020 12:00:00 AM EST 1 {tbl} Oral aborted Take 1 tablet by mouth daily [facility] Myrbetriq 50 MG UNK 05/25/2020 12:00:00 AM EST 1.0 {tablet} suspended Myrbetriq 50 MG eCW1 ([facility]) Acetaminophen 300 MG / Codeine Phosphate 60 MG Oral Tablet acetaminophen-codeine (TYLENOL #4) 300-60 MG per tablet acetaminophen-codeine (TYLENOL #4) 300-6 0 MG per tablet 05/14/2020 12:00:00 AM EST active TAKE ONE TABLET BY MOUTH EVERY 6 HOURS NEEDED FOR PAIN MAXIMUM DAILY DOSE FOUR TABLETS SHOULD LAST 30 DAYS [facility] Acetaminophen 300 MG / Codeine Phosphate 60 MG Oral Tablet Acetaminophen-Codeine #4 300-60 MG Acetaminophen-Codeine #4 300-60 MG 05/13/2020 12:00:00 AM EST 1.0 {tablet_as_needed} active Acetamino phen-Codeine #4 300-60 MG eCW1 (Pending Sale To [facility]) Acetaminophen 300 MG / Codeine Phosphate 60 MG Oral Tablet Acetaminophen-Codeine #4 300-60 MG Acetaminophen-Codeine #4 300-60 MG 05/13/2020 12:00:00 AM EST 1.0 {tablet_as_needed} active Acetamino phen-Codeine #4 300-60 MG eCW1 (Pending Sale To [facility]) Acetaminophen 300 MG / Codeine Phosphate 60 MG Oral Tablet Acetaminophen-Codeine #4 300-60 MG Acetaminophen-Codeine #4 300-60 MG 05/13/2020 12:00:00 AM EST 1.0 {tablet_as_needed} active Acetamino phen-Codeine #4 300-60 MG eCW1 (Pending Sale To [facility]) Acetaminophen 300 MG / Codeine Phosphate 60 MG Oral Tablet Acetaminophen-Codeine #4 300-60 MG Acetaminophen-Codeine #4 300-60 MG 05/13/2020 12:00:00 AM EST 1.0 {tablet_as_needed} active Acetamino phen-Codeine #4 300-60 MG eCW1 (Pending Sale To [facility]) Acetaminophen 300 MG / Codeine Phosphate 60 MG Oral Tablet Acetaminophen-Codeine #4 300-60 MG Acetaminophen-Codeine #4 300-60 MG 05/13/2020 12:00:00 AM EST 1.0 {tablet_as_needed} active Acetamino phen-Codeine #4 300-60 MG eCW1 (Pending Sale To [facility]) Acetaminophen 300 MG / Codeine Phosphate 60 MG Oral Tablet Acetaminophen-Codeine #4 300-60 MG Acetaminophen-Codeine #4 300-60 MG 05/13/2020 12:00:00 AM EST 1.0 {tablet_as_needed} active Acetamino phen-Codeine #4 300-60 MG eCW1 (Pending Sale To [facility]) Acetaminophen 300 MG / Codeine Phosphate 60 MG Oral Tablet Acetaminophen-Codeine #4 300-60 MG Acetaminophen-Codeine #4 300-60 MG 05/13/2020 12:00:00 AM EST 1.0 {tablet_as_needed} active Acetamino phen-Codeine #4 300-60 MG eCW1 (Pending Sale To [facility]) Acetaminophen 300 MG / Codeine Phosphate 60 MG Oral Tablet Acetaminophen-Codeine #4 300-60 MG Acetaminophen-Codeine #4 300-60 MG 05/13/2020 12:00:00 AM EST 1.0 {tablet_as_needed} active Acetamino phen-Codeine #4 300-60 MG eCW1 (Pending Sale To [facility]) Acetaminophen 300 MG / Codeine Phosphate 60 MG Oral Tablet Acetaminophen-Codeine #4 300-60 MG Acetaminophen-Codeine #4 300-60 MG 05/13/2020 12:00:00 AM EST 1.0 {tablet_as_needed} active Acetamino phen-Codeine #4 300-60 MG eCW1 (Pending Sale To [facility]) Acetaminophen 300 MG / Codeine Phosphate 60 MG Oral Tablet Acetaminophen-Codeine #4 300-60 MG Acetaminophen-Codeine #4 300-60 MG 05/13/2020 12:00:00 AM EST 1.0 {tablet_as_needed} active Acetamino phen-Codeine #4 300-60 MG eCW1 (Pending Sale To [facility]) Acetaminophen 300 MG / Codeine Phosphate 60 MG Oral Tablet Acetaminophen-Codeine #4 300-60 MG Acetaminophen-Codeine #4 300-60 MG 05/13/2020 12:00:00 AM EST 1.0 {tablet_as_needed} active Acetamino phen-Codeine #4 300-60 MG eCW1 (Pending Sale To [facility]) Acetaminophen 300 MG / Codeine Phosphate 60 MG Oral Tablet Acetaminophen-Codeine #4 300-60 MG Acetaminophen-Codeine #4 300-60 MG 05/13/2020 12:00:00 AM EST 1.0 {tablet_as_needed} active Acetamino phen-Codeine #4 300-60 MG eCW1 (Pending Sale To [facility]) Acetaminophen 300 MG / Codeine Phosphate 60 MG Oral Tablet Acetaminophen-Codeine #4 300-60 MG Acetaminophen-Codeine #4 300-60 MG 05/13/2020 12:00:00 AM EST 1.0 {tablet_as_needed} active Acetamino phen-Codeine #4 300-60 MG eCW1 (Pending Sale To [facility]) Acetaminophen 300 MG / Codeine Phosphate 60 MG Oral Tablet Acetaminophen-Codeine #4 300-60 MG Acetaminophen-Codeine #4 300-60 MG 05/13/2020 12:00:00 AM EST 1.0 {tablet_as_needed} active Acetamino phen-Codeine #4 300-60 MG eCW1 (Pending Sale To [facility]) apixaban 2.5 MG Oral Tablet [Eliquis] Eliquis 2.5 MG Eliquis 2.5 MG 05/06/2020 12:00:00 AM EST 1.0 {tablet} active El iquis 2.5 MG eCW1 (Pending Sale To [facility]) apixaban 2.5 MG Oral Tablet [Eliquis] Eliquis 2.5 MG Eliquis 2.5 MG 05/06/2020 12:00:00 AM EST 1.0 {tablet} active El iquis 2.5 MG eCW1 (Pending Sale To [facility]) apixaban 2.5 MG Oral Tablet [Eliquis] Eliquis 2.5 MG Eliquis 2.5 MG 05/06/2020 12:00:00 AM EST 1.0 {tablet} active El iquis 2.5 MG eCW1 (Pending Sale To [facility]) apixaban 2.5 MG Oral Tablet [Eliquis] Eliquis 2.5 MG Eliquis 2.5 MG 05/06/2020 12:00:00 AM EST 1.0 {tablet} active El iquis 2.5 MG eCW1 (Pending Sale To [facility]) apixaban 2.5 MG Oral Tablet [Eliquis] Eliquis 2.5 MG Eliquis 2.5 MG 05/06/2020 12:00:00 AM EST 1.0 {tablet} active El iquis 2.5 MG eCW1 (Pending Sale To [facility]) apixaban 2.5 MG Oral Tablet [Eliquis] Eliquis 2.5 MG Eliquis 2.5 MG 05/06/2020 12:00:00 AM EST 1.0 {tablet} active El iquis 2.5 MG eCW1 (Pending Sale To [facility]) apixaban 2.5 MG Oral Tablet [Eliquis] Eliquis 2.5 MG Eliquis 2.5 MG 05/06/2020 12:00:00 AM EST 1.0 {tablet} active El iquis 2.5 MG eCW1 (Pending Sale To [facility]) apixaban 2.5 MG Oral Tablet [Eliquis] Eliquis 2.5 MG Eliquis 2.5 MG 05/06/2020 12:00:00 AM EST 1.0 {tablet} active El iquis 2.5 MG eCW1 (Pending Sale To [facility]) apixaban 2.5 MG Oral Tablet [Eliquis] Eliquis 2.5 MG Eliquis 2.5 MG 05/06/2020 12:00:00 AM EST 1.0 {tablet} active El iquis 2.5 MG eCW1 (Pending Sale To [facility]) apixaban 2.5 MG Oral Tablet [Eliquis] Eliquis 2.5 MG Eliquis 2.5 MG 05/06/2020 12:00:00 AM EST 1.0 {tablet} active El iquis 2.5 MG eCW1 (Pending Sale To [facility]) apixaban 2.5 MG Oral Tablet [Eliquis] Eliquis 2.5 MG Eliquis 2.5 MG 05/06/2020 12:00:00 AM EST 1.0 {tablet} active El iquis 2.5 MG eCW1 (Pending Sale To [facility]) apixaban 2.5 MG Oral Tablet [Eliquis] Eliquis 2.5 MG Eliquis 2.5 MG 05/06/2020 12:00:00 AM EST 1.0 {tablet} active El iquis 2.5 MG eCW1 (Pending Sale To [facility]) apixaban 2.5 MG Oral Tablet [Eliquis] ELIQUIS 2.5 MG T ABS tablet ELIQUIS 2.5 MG TABS tablet 05/06/2020 12:00:00 AM EST 2.5 mg Oral active Take 2.5 mg by mouth 2 (two) times a day [facility] apixaban 2.5 MG Oral Tablet [Eliquis] Eliquis 2.5 MG Eliquis 2.5 MG 05/06/2020 12:00:00 AM EST 1.0 {tablet} active El iquis 2.5 MG eCW1 (Pending Sale To [facility]) apixaban 2.5 MG Oral Tablet [Eliquis] Eliquis 2.5 MG Eliquis 2.5 MG 05/06/2020 12:00:00 AM EST 1.0 {tablet} active El iquis 2.5 MG eCW1 (Pending Sale To [facility]) apixaban 2.5 MG Oral Tablet [Eliquis] Eliquis 2.5 MG Eliquis 2.5 MG 05/06/2020 12:00:00 AM EST 1.0 {tablet} active El iquis 2.5 MG eCW1 (Pending Sale To [facility]) apixaban 2.5 MG Oral Tablet [Eliquis] Eliquis 2.5 MG Eliquis 2.5 MG 05/06/2020 12:00:00 AM EST 1.0 {tablet} active El iquis 2.5 MG eCW1 (Pending Sale To [facility]) gabapentin 600 MG Oral Tablet gabapentin (NEURONTIN) 6 00 MG tablet gabapentin (NEURONTIN) 600 MG tablet 04/23/2020 12:00:00 AM EST 600 mg Oral active Take 600 mg by mouth 3 (three) times a day [facility] Triamcinolone Acetonide 1 MG/ML Topical Cream triamcinolone (KENALOG) 0.1 % cream triamcinolone (KENALOG) 0.1 % cream 04/01/2020 12:00:00 AM EST aborted APPLY TO AFFECTED AREA S TWO TI MES A DAY [facility] Aimovig 140 MG/ML Subcutaneous Solution Auto-injector 57805- 843-01 03/11/2020 12:00:00 AM EDT 1 mL Subcutaneous active Inject 1 mL into the skin every 30 (thirty) days [facility] 24 HR Bupropion Hydrochloride 150 MG Ext ended Release Oral Tablet [Wellbutrin] Wellbutrin XL 150 MG Wellbutrin XL 150 MG 02/28/2020 12:00:00 AM EDT 1.0 {tablet_in_the_morning} active Wellbutr in XL 150 MG eCW1 (Pending Sale To [facility]) gabapentin 600 MG Oral Tablet Gabapentin 600 MG Gabapentin 6 00 MG 02/28/2020 12:00:00 AM EDT 1.0 {tablet} active Ga bapentin 600 MG eCW1 (Pending Sale To [facility]) 24 HR Bupropion Hydrochloride 150 MG Ext ended Release Oral Tablet [Wellbutrin] Wellbutrin XL 150 MG Wellbutrin XL 150 MG 02/28/2020 12:00:00 AM EDT 1.0 {tablet_in_the_morning} active Wellbutr in XL 150 MG eCW1 (Pending Sale To [facility]) gabapentin 600 MG Oral Tablet Gabapentin 600 MG Gabapentin 6 00 MG 02/28/2020 12:00:00 AM EDT 1.0 {tablet} active Ga bapentin 600 MG eCW1 (Pending Sale To [facility]) Amoxicillin 500 MG Oral Capsule Amoxicillin 500 MG 02/28/2020 12:00 :00 AM EDT suspended Amoxicillin 500 MG eCW 1 (Pending Sale To [facility]) gabapentin 600 MG Oral Tablet Gabapentin 600 MG Gabapentin 6 00 MG 02/28/2020 12:00:00 AM EDT 1.0 {tablet} active Ga bapentin 600 MG eCW1 (Pending Sale To [facility]) Amoxicillin 500 MG Oral Capsule Amoxicillin 500 MG 02/28/2020 12:00 :00 AM EDT suspended Amoxicillin 500 MG eCW 1 (Pending Sale To [facility]) gabapentin 600 MG Oral Tablet Gabapentin 600 MG Gabapentin 6 00 MG 02/28/2020 12:00:00 AM EDT 1.0 {tablet} active Ga bapentin 600 MG eCW1 (Pending Sale To [facility]) 24 HR Bupropion Hydrochloride 150 MG Ext ended Release Oral Tablet [Wellbutrin] Wellbutrin XL 150 MG Wellbutrin XL 150 MG 02/28/2020 12:00:00 AM EDT 1.0 {tablet_in_the_morning} active Wellbutr in XL 150 MG eCW1 (Pending Sale To [facility]) gabapentin 600 MG Oral Tablet Gabapentin 600 MG Gabapentin 6 00 MG 02/28/2020 12:00:00 AM EDT 1.0 {tablet} active Ga bapentin 600 MG eCW1 (Pending Sale To [facility]) Amoxicillin 500 MG Oral Capsule Amoxicillin 500 MG 02/28/2020 12:00 :00 AM EDT suspended Amoxicillin 500 MG eCW 1 (Pending Sale To [facility]) gabapentin 600 MG Oral Tablet Gabapentin 600 MG Gabapentin 6 00 MG 02/28/2020 12:00:00 AM EDT 1.0 {tablet} active Ga bapentin 600 MG eCW1 (Pending Sale To [facility]) gabapentin 600 MG Oral Tablet Gabapentin 600 MG Gabapentin 6 00 MG 02/28/2020 12:00:00 AM EDT 1.0 {tablet} active Ga bapentin 600 MG eCW1 (Pending Sale To [facility]) Amoxicillin 500 MG Oral Capsule Amoxicillin 500 MG 02/28/2020 12:00 :00 AM EDT active Amoxicillin 500 MG eCW1 (Pending Sale To [facility]) Amoxicillin 500 MG Oral Capsule Amoxicillin 500 MG 02/28/2020 12:00 :00 AM EDT active Amoxicillin 500 MG eCW1 (Pending Sale To [facility]) 24 HR Bupropion Hydrochloride 150 MG Ext ended Release Oral Tablet [Wellbutrin] Wellbutrin XL 150 MG Wellbutrin XL 150 MG 02/28/2020 12:00:00 AM EDT 1.0 {tablet_in_the_morning} active Wellbutr in XL 150 MG eCW1 (Pending Sale To [facility]) 24 HR Bupropion Hydrochloride 150 MG Ext ended Release Oral Tablet [Wellbutrin] Wellbutrin XL 150 MG Wellbutrin XL 150 MG 02/28/2020 12:00:00 AM EDT 1.0 {tablet_in_the_morning} active Wellbutr in XL 150 MG eCW1 (Pending Sale To [facility]) gabapentin 600 MG Oral Tablet Gabapentin 600 MG Gabapentin 6 00 MG 02/28/2020 12:00:00 AM EDT 1.0 {tablet} active Ga bapentin 600 MG eCW1 (Pending Sale To [facility]) gabapentin 600 MG Oral Tablet Gabapentin 600 MG Gabapentin 6 00 MG 02/28/2020 12:00:00 AM EDT 1.0 {tablet} active Ga bapentin 600 MG eCW1 (Pending Sale To [facility]) Amoxicillin 500 MG Oral Capsule Amoxicillin 500 MG 02/28/2020 12:00 :00 AM EDT active Amoxicillin 500 MG eCW1 (Pending Sale To [facility]) 24 HR Bupropion Hydrochloride 150 MG Ext ended Release Oral Tablet [Wellbutrin] Wellbutrin XL 150 MG Wellbutrin XL 150 MG 02/28/2020 12:00:00 AM EDT 1.0 {tablet_in_the_morning} active Wellbutr in XL 150 MG eCW1 (Pending Sale To [facility]) Amoxicillin 500 MG Oral Capsule Amoxicillin 500 MG 02/28/2020 12:00 :00 AM EDT suspended Amoxicillin 500 MG eCW 1 (Pending Sale To [facility]) Amoxicillin 500 MG Oral Capsule Amoxicillin 500 MG 02/28/2020 12:00 :00 AM EDT suspended Amoxicillin 500 MG eCW 1 (Pending Sale To [facility]) 24 HR Bupropion Hydrochloride 150 MG Ext ended Release Oral Tablet [Wellbutrin] Wellbutrin XL 150 MG Wellbutrin XL 150 MG 02/28/2020 12:00:00 AM EDT 1.0 {tablet_in_the_morning} active Wellbutr in XL 150 MG eCW1 (Pending Sale To [facility]) gabapentin 600 MG Oral Tablet Gabapentin 600 MG Gabapentin 6 00 MG 02/28/2020 12:00:00 AM EDT 1.0 {tablet} active Ga bapentin 600 MG eCW1 (Pending Sale To [facility]) gabapentin 600 MG Oral Tablet Gabapentin 600 MG Gabapentin 6 00 MG 02/28/2020 12:00:00 AM EDT 1.0 {tablet} active Ga bapentin 600 MG eCW1 (Pending Sale To [facility]) gabapentin 600 MG Oral Tablet Gabapentin 600 MG Gabapentin 6 00 MG 02/28/2020 12:00:00 AM EDT 1.0 {tablet} active Ga bapentin 600 MG eCW1 (Pending Sale To [facility]) Amoxicillin 500 MG Oral Capsule Amoxicillin 500 MG 02/28/2020 12:00 :00 AM EDT suspended Amoxicillin 500 MG eCW 1 (Pending Sale To [facility]) gabapentin 600 MG Oral Tablet Gabapentin 600 MG Gabapentin 6 00 MG 02/28/2020 12:00:00 AM EDT 1.0 {tablet} active Ga bapentin 600 MG eCW1 (Pending Sale To [facility]) 24 HR Bupropion Hydrochloride 150 MG Ext ended Release Oral Tablet [Wellbutrin] Wellbutrin XL 150 MG Wellbutrin XL 150 MG 02/28/2020 12:00:00 AM EDT 1.0 {tablet_in_the_morning} active Wellbutr in XL 150 MG eCW1 (Pending Sale To [facility]) gabapentin 600 MG Oral Tablet Gabapentin 600 MG Gabapentin 6 00 MG 02/28/2020 12:00:00 AM EDT 1.0 {tablet} active Ga bapentin 600 MG eCW1 (Pending Sale To [facility]) gabapentin 600 MG Oral Tablet Gabapentin 600 MG Gabapentin 6 00 MG 02/28/2020 12:00:00 AM EDT 1.0 {tablet} active Ga bapentin 600 MG eCW1 (Pending Sale To [facility]) Amoxicillin 500 MG Oral Capsule Amoxicillin 500 MG 02/28/2020 12:00 :00 AM EDT active Amoxicillin 500 MG eCW1 (Pending Sale To [facility]) gabapentin 600 MG Oral Tablet Gabapentin 600 MG Oral T ablet (NEURONTIN) Gabapentin 600 MG Oral Tablet (NEURONTIN) 02/28/2020 12:00:00 AM EDT 600 mg Oral active Take 600 mg by mouth Three times daily [facility] 24 HR Bupropion Hydrochloride 150 MG Ext ended Release Oral Tablet [Wellbutrin] Wellbutrin XL 150 MG Wellbutrin XL 150 MG 02/28/2020 12:00:00 AM EDT 1.0 {tablet_in_the_morning} active Wellbutr in XL 150 MG eCW1 (Pending Sale To [facility]) gabapentin 600 MG Oral Tablet Gabapentin 600 MG Gabapentin 6 00 MG 02/28/2020 12:00:00 AM EDT 1.0 {tablet} active Ga bapentin 600 MG eCW1 (Pending Sale To [facility]) Amoxicillin 500 MG Oral Capsule Amoxicillin 500 MG 02/28/2020 12:00 :00 AM EDT suspended Amoxicillin 500 MG eCW 1 (Pending Sale To [facility]) Amoxicillin 500 MG Oral Capsule Amoxicillin 500 MG 02/28/2020 12:00 :00 AM EDT suspended Amoxicillin 500 MG eCW 1 (Pending Sale To [facility]) gabapentin 600 MG Oral Tablet Gabapentin 600 MG Gabapentin 6 00 MG 02/28/2020 12:00:00 AM EDT 1.0 {tablet} active Ga bapentin 600 MG eCW1 (Pending Sale To [facility]) Amoxicillin 500 MG Oral Capsule Amoxicillin 500 MG 02/28/2020 12:00 :00 AM EDT suspended Amoxicillin 500 MG eCW 1 (Pending Sale To [facility]) gabapentin 600 MG Oral Tablet Gabapentin 600 MG Gabapentin 6 00 MG 02/28/2020 12:00:00 AM EDT 1.0 {tablet} active Ga bapentin 600 MG eCW1 (Pending Sale To [facility]) 24 HR Bupropion Hydrochloride 150 MG Ext ended Release Oral Tablet [Wellbutrin] Wellbutrin XL 150 MG Wellbutrin XL 150 MG 02/28/2020 12:00:00 AM EDT 1.0 {tablet_in_the_morning} active Wellbutr in XL 150 MG eCW1 (Pending Sale To [facility]) Amoxicillin 500 MG Oral Capsule Amoxicillin 500 MG 02/28/2020 12:00 :00 AM EDT suspended Amoxicillin 500 MG eCW 1 (Pending Sale To [facility]) Amoxicillin 500 MG Oral Capsule Amoxicillin 500 MG 02/28/2020 12:00 :00 AM EDT suspended Amoxicillin 500 MG eCW 1 (Pending Sale To [facility]) gabapentin 600 MG Oral Tablet Gabapentin 600 MG Gabapentin 6 00 MG 02/28/2020 12:00:00 AM EDT 1.0 {tablet} active Ga bapentin 600 MG eCW1 (Pending Sale To [facility]) Amoxicillin 500 MG Oral Capsule Amoxicillin 500 MG 02/28/2020 12:00 :00 AM EDT suspended Amoxicillin 500 MG eCW 1 (Pending Sale To [facility]) 24 HR Bupropion Hydrochloride 150 MG Ext ended Release Oral Tablet [Wellbutrin] Wellbutrin XL 150 MG Wellbutrin XL 150 MG 02/28/2020 12:00:00 AM EDT 1.0 {tablet_in_the_morning} active Wellbutr in XL 150 MG eCW1 (Pending Sale To [facility]) gabapentin 600 MG Oral Tablet Gabapentin 600 MG Gabapentin 6 00 MG 02/28/2020 12:00:00 AM EDT 1.0 {tablet} active Ga bapentin 600 MG eCW1 (Pending Sale To [facility]) 24 HR Bupropion Hydrochloride 150 MG Ext ended Release Oral Tablet [Wellbutrin] Wellbutrin XL 150 MG Wellbutrin XL 150 MG 02/28/2020 12:00:00 AM EDT 1.0 {tablet_in_the_morning} active Wellbutr in XL 150 MG eCW1 (Pending Sale To [facility]) gabapentin 600 MG Oral Tablet Gabapentin 600 MG Gabapentin 6 00 MG 02/28/2020 12:00:00 AM EDT 1.0 {tablet} active Ga bapentin 600 MG eCW1 (Pending Sale To [facility]) Amoxicillin 500 MG Oral Capsule Amoxicillin 500 MG 02/28/2020 12:00 :00 AM EDT suspended Amoxicillin 500 MG eCW 1 (Pending Sale To [facility]) gabapentin 600 MG Oral Tablet Gabapentin 600 MG Gabapentin 6 00 MG 02/28/2020 12:00:00 AM EDT 1.0 {tablet} active Ga bapentin 600 MG eCW1 (Pending Sale To [facility]) Amoxicillin 500 MG Oral Capsule Amoxicillin 500 MG 02/28/2020 12:00 :00 AM EDT suspended Amoxicillin 500 MG eCW 1 (Pending Sale To [facility]) 24 HR Bupropion Hydrochloride 150 MG Ext ended Release Oral Tablet [Wellbutrin] Wellbutrin XL 150 MG Wellbutrin XL 150 MG 02/28/2020 12:00:00 AM EDT 1.0 {tablet_in_the_morning} active Wellbutr in XL 150 MG eCW1 (Pending Sale To [facility]) Amoxicillin 500 MG Oral Capsule Amoxicillin 500 MG 02/28/2020 12:00 :00 AM EDT active Amoxicillin 500 MG eCW1 (Pending Sale To [facility]) Amoxicillin 500 MG Oral Capsule Amoxicillin 500 MG 02/28/2020 12:00 :00 AM EDT suspended Amoxicillin 500 MG eCW 1 (Pending Sale To [facility]) Amoxicillin 500 MG Oral Capsule Amoxicillin 500 MG 02/28/2020 12:00 :00 AM EDT suspended Amoxicillin 500 MG eCW 1 (Pending Sale To [facility]) Amoxicillin 500 MG Oral Capsule Amoxicillin 500 MG 02/28/2020 12:00 :00 AM EDT active Amoxicillin 500 MG eCW1 (Pending Sale To [facility]) gabapentin 600 MG Oral Tablet Gabapentin 600 MG Gabapentin 6 00 MG 02/28/2020 12:00:00 AM EDT 1.0 {tablet} active Ga bapentin 600 MG eCW1 (Pending Sale To [facility]) Amoxicillin 500 MG Oral Capsule Amoxicillin 500 MG 02/28/2020 12:00 :00 AM EDT suspended Amoxicillin 500 MG eCW 1 (Pending Sale To [facility]) gabapentin 600 MG Oral Tablet Gabapentin 600 MG Gabapentin 6 00 MG 02/28/2020 12:00:00 AM EDT 1.0 {tablet} active Ga bapentin 600 MG eCW1 (Pending Sale To [facility]) gabapentin 600 MG Oral Tablet Gabapentin 600 MG Gabapentin 6 00 MG 02/28/2020 12:00:00 AM EDT 1.0 {tablet} active Ga bapentin 600 MG eCW1 (Pending Sale To [facility]) gabapentin 600 MG Oral Tablet Gabapentin 600 MG Gabapentin 6 00 MG 02/28/2020 12:00:00 AM EDT 1.0 {tablet} active Ga bapentin 600 MG eCW1 (Pending Sale To [facility]) Amoxicillin 500 MG Oral Capsule Amoxicillin 500 MG 02/28/2020 12:00 :00 AM EDT suspended Amoxicillin 500 MG eCW 1 (Pending Sale To [facility]) Amoxicillin 500 MG Oral Capsule Amoxicillin 500 MG 02/28/2020 12:00 :00 AM EDT suspended Amoxicillin 500 MG eCW 1 (Pending Sale To [facility]) Amoxicillin 500 MG Oral Capsule Amoxicillin 500 MG 02/28/2020 12:00 :00 AM EDT suspended Amoxicillin 500 MG eCW 1 (Pending Sale To [facility]) gabapentin 600 MG Oral Tablet Gabapentin 600 MG Gabapentin 6 00 MG 02/28/2020 12:00:00 AM EDT 1.0 {tablet} active Ga bapentin 600 MG eCW1 (Pending Sale To [facility]) 24 HR Bupropion Hydrochloride 150 MG Ext ended Release Oral Tablet [Wellbutrin] Wellbutrin XL 150 MG Wellbutrin XL 150 MG 02/28/2020 12:00:00 AM EDT 1.0 {tablet_in_the_morning} active Wellbutr in XL 150 MG eCW1 (Pending Sale To [facility]) Amoxicillin 500 MG Oral Capsule Amoxicillin 500 MG 02/28/2020 12:00 :00 AM EDT active Amoxicillin 500 MG eCW1 (Pending Sale To [facility]) Methylprednisolone 4 MG Oral Tablet [Medrol] Medrol 12:00:00 AM EDT active MEDENT ( [facility]) Aimovig Aimovig 11/19/2019 12:00:00 AM EDT active [facility] ([facility]) pregabalin 150 MG Oral Capsule [Lyrica] Lyrica 150 MG Lyrica 150 MG 11/08/2019 12:00:00 AM EDT 1.0 {capsule} active L yrica 150 MG eCW1 (Pending Sale To [facility]) pregabalin 150 MG Oral Capsule [Lyrica] Lyrica 150 MG Lyrica 150 MG 11/08/2019 12:00:00 AM EDT 1.0 {capsule} suspended Lyrica 150 MG eCW1 (Pending Sale To [facility]) pregabalin 150 MG Oral Capsule [Lyrica] Lyrica 150 MG Lyrica 150 MG 11/08/2019 12:00:00 AM EDT 1.0 {capsule} active L yrica 150 MG eCW1 (Pending Sale To [facility]) pregabalin 150 MG Oral Capsule [Lyrica] Lyrica 150 MG Lyrica 150 MG 11/08/2019 12:00:00 AM EDT 1.0 {capsule} active L yrica 150 MG eCW1 (Pending Sale To [facility]) pregabalin 150 MG Oral Capsule [Lyrica] Lyrica 150 MG Lyrica 150 MG 11/08/2019 12:00:00 AM EDT 1.0 {capsule} active L yrica 150 MG eCW1 (Pending Sale To [facility]) pregabalin 150 MG Oral Capsule [Lyrica] Lyrica 150 MG Lyrica 150 MG 11/08/2019 12:00:00 AM EDT 1.0 {capsule} active L yrica 150 MG eCW1 (Pending Sale To [facility]) Prednisone 20 MG Oral Tablet predniSONE 20 MG Oral Tab let (DELTASONE) predniSONE 20 MG Oral Tablet (DELTASONE) 10/31/2019 12:00:00 AM EDT [facility] Prednisone 20 MG Oral Tablet Prednisone 10/30/2019 12:00:00 AM EDT completed [facility] ([facility]) pregabalin 100 MG Oral Capsule Pregabalin 100 MG Oral Capsule (LYRICA) Pregabalin 100 MG Oral Capsule (LYRICA) 10/08/2019 12:00:00 AM EDT 15 0 mg aborted 150 mg Two Times Daily [facility] pregabalin 100 MG Oral Capsule [Lyrica] Lyrica 100 MG Lyrica 100 MG 10/08/2019 12:00:00 AM EDT active 1 capsul e eCW1 (Pending Sale To [facility]) pregabalin 100 MG Oral Capsule [Lyrica] Lyrica 100 MG Lyrica 100 MG 10/08/2019 12:00:00 AM EDT 1.0 {capsule} active L yrica 100 MG eCW1 (Pending Sale To [facility]) pregabalin 100 MG Oral Capsule [Lyrica] Lyrica 100 MG Lyrica 100 MG 10/08/2019 12:00:00 AM EDT 1.0 {capsule} active L yrica 100 MG eCW1 (Pending Sale To [facility]) Triamcinolone Acetonide 1 MG/ML Topical Cream Triamcin olone Acetonide 0.1 % Triamcinolone Acetonide 0.1 % 09/09/2019 12:00:00 AM EDT 1.0 {appli cation} active Triamcinolone Acetonide 0 .1 % eCW1 (Pending Sale To [facility]) Triamcinolone Acetonide 1 MG/ML Topical Cream Triamcin olone Acetonide 0.1 % Triamcinolone Acetonide 0.1 % 09/09/2019 12:00:00 AM EDT active 1 application eCW1 (Pending Sale To [facility]) Triamcinolone Acetonide 1 MG/ML Topical Cream Triamcin olone Acetonide 0.1 % Triamcinolone Acetonide 0.1 % 09/09/2019 12:00:00 AM EDT 1.0 {appli cation} active Triamcinolone Acetonide 0 .1 % eCW1 (Pending Sale To [facility]) Triamcinolone Acetonide 1 MG/ML Topical Cream Triamcin olone Acetonide 0.1 % Triamcinolone Acetonide 0.1 % 09/09/2019 12:00:00 AM EDT 1.0 {appli cation} active Triamcinolone Acetonide 0 .1 % eCW1 (Pending Sale To [facility]) Triamcinolone Acetonide 1 MG/ML Topical Cream Triamcin olone Acetonide 0.1 % Triamcinolone Acetonide 0.1 % 09/09/2019 12:00:00 AM EDT 1.0 {appli cation} active Triamcinolone Acetonide 0 .1 % eCW1 (Pending Sale To [facility]) Triamcinolone Acetonide 1 MG/ML Topical Cream Triamcin olone Acetonide 0.1 % Triamcinolone Acetonide 0.1 % 09/09/2019 12:00:00 AM EDT 1.0 {appli cation} active Triamcinolone Acetonide 0 .1 % eCW1 (Pending Sale To [facility]) Triamcinolone Acetonide 1 MG/ML Topical Cream Triamcin olone Acetonide 0.1 % Triamcinolone Acetonide 0.1 % 09/09/2019 12:00:00 AM EDT 1.0 {appli cation} active Triamcinolone Acetonide 0 .1 % eCW1 (Pending Sale To [facility]) Triamcinolone Acetonide 1 MG/ML Topical Cream Triamcin olone Acetonide 0.1 % Triamcinolone Acetonide 0.1 % 09/09/2019 12:00:00 AM EDT 1.0 {appli cation} active Triamcinolone Acetonide 0 .1 % eCW1 (Pending Sale To [facility]) Triamcinolone Acetonide 1 MG/ML Topical Cream Triamcin olone Acetonide 0.1 % Triamcinolone Acetonide 0.1 % 09/09/2019 12:00:00 AM EDT 1.0 {appli cation} active Triamcinolone Acetonide 0 .1 % eCW1 (Pending Sale To [facility]) Triamcinolone Acetonide 1 MG/ML Topical Cream Triamcin olone Acetonide 0.1 % Triamcinolone Acetonide 0.1 % 09/09/2019 12:00:00 AM EDT 1.0 {appli cation} active Triamcinolone Acetonide 0 .1 % eCW1 (Pending Sale To [facility]) Triamcinolone Acetonide 1 MG/ML Topical Cream Triamcin olone Acetonide 0.1 % Triamcinolone Acetonide 0.1 % 09/09/2019 12:00:00 AM EDT 1.0 {appli cation} active Triamcinolone Acetonide 0 .1 % eCW1 (Pending Sale To [facility]) Triamcinolone Acetonide 1 MG/ML Topical Cream Triamcin olone Acetonide 0.1 % Triamcinolone Acetonide 0.1 % 09/09/2019 12:00:00 AM EDT 1.0 {appli cation} active Triamcinolone Acetonide 0 .1 % eCW1 (Pending Sale To [facility]) Triamcinolone Acetonide 1 MG/ML Topical Cream Triamcin olone Acetonide 0.1 % Triamcinolone Acetonide 0.1 % 09/09/2019 12:00:00 AM EDT 1.0 {appli cation} active Triamcinolone Acetonide 0 .1 % eCW1 (Pending Sale To [facility]) Triamcinolone Acetonide 1 MG/ML Topical Cream Triamcin olone Acetonide 0.1 % Triamcinolone Acetonide 0.1 % 09/09/2019 12:00:00 AM EDT 1.0 {appli cation} active Triamcinolone Acetonide 0 .1 % eCW1 (Pending Sale To [facility]) Triamcinolone Acetonide 1 MG/ML Topical Cream Triamcin olone Acetonide 0.1 % Triamcinolone Acetonide 0.1 % 09/09/2019 12:00:00 AM EDT 1.0 {appli cation} active Triamcinolone Acetonide 0 .1 % eCW1 (Pending Sale To [facility]) Triamcinolone Acetonide 1 MG/ML Topical Cream Triamcin olone Acetonide 0.1 % Triamcinolone Acetonide 0.1 % 09/09/2019 12:00:00 AM EDT 1.0 {appli cation} active Triamcinolone Acetonide 0 .1 % eCW1 (Pending Sale To [facility]) pregabalin 75 MG Oral Capsule [Lyrica] Lyrica 75 MG Lyrica 7 5 MG 09/09/2019 12:00:00 AM EDT active 1 capsul e eCW1 (Pending Sale To [facility]) Triamcinolone Acetonide 1 MG/ML Topical Cream Triamcin olone Acetonide 0.1 % Triamcinolone Acetonide 0.1 % 09/09/2019 12:00:00 AM EDT 1.0 {appli cation} active Triamcinolone Acetonide 0 .1 % eCW1 (Pending Sale To [facility]) Triamcinolone Acetonide 1 MG/ML Topical Cream Triamcin olone Acetonide 0.1 % Triamcinolone Acetonide 0.1 % 09/09/2019 12:00:00 AM EDT active 1 application eCW1 (Pending Sale To [facility]) Triamcinolone Acetonide 1 MG/ML Topical Cream Triamcin olone Acetonide 0.1 % Triamcinolone Acetonide 0.1 % 09/09/2019 12:00:00 AM EDT 1.0 {appli cation} active Triamcinolone Acetonide 0 .1 % eCW1 (Pending Sale To [facility]) Triamcinolone Acetonide 1 MG/ML Topical Cream Triamcin olone Acetonide 0.1 % Triamcinolone Acetonide 0.1 % 09/09/2019 12:00:00 AM EDT 1.0 {appli cation} active Triamcinolone Acetonide 0 .1 % eCW1 (Pending Sale To [facility]) Triamcinolone Acetonide 1 MG/ML Topical Cream Triamcin olone Acetonide 0.1 % Triamcinolone Acetonide 0.1 % 09/09/2019 12:00:00 AM EDT 1.0 {appli cation} active Triamcinolone Acetonide 0 .1 % eCW1 (Pending Sale To [facility]) Triamcinolone Acetonide 1 MG/ML Topical Cream Triamcin olone Acetonide 0.1 % Triamcinolone Acetonide 0.1 % 09/09/2019 12:00:00 AM EDT 1.0 {appli cation} active Triamcinolone Acetonide 0 .1 % eCW1 (Pending Sale To [facility]) Triamcinolone Acetonide 1 MG/ML Topical Cream Triamcin olone Acetonide 0.1 % Triamcinolone Acetonide 0.1 % 09/09/2019 12:00:00 AM EDT 1.0 {appli cation} active Triamcinolone Acetonide 0 .1 % eCW1 (Pending Sale To [facility]) Triamcinolone Acetonide 1 MG/ML Topical Cream Triamcin olone Acetonide 0.1 % Triamcinolone Acetonide 0.1 % 09/09/2019 12:00:00 AM EDT 1.0 {appli cation} active Triamcinolone Acetonide 0 .1 % eCW1 (Pending Sale To [facility]) Triamcinolone Acetonide 1 MG/ML Topical Cream Triamcin olone Acetonide 0.1 % Triamcinolone Acetonide 0.1 % 09/09/2019 12:00:00 AM EDT 1.0 {appli cation} active Triamcinolone Acetonide 0 .1 % eCW1 (Pending Sale To [facility]) Triamcinolone Acetonide 1 MG/ML Topical Cream Triamcin olone Acetonide 0.1 % Triamcinolone Acetonide 0.1 % 09/09/2019 12:00:00 AM EDT 1.0 {appli cation} active Triamcinolone Acetonide 0 .1 % eCW1 (Pending Sale To [facility]) Triamcinolone Acetonide 1 MG/ML Topical Cream Triamcin olone Acetonide 0.1 % Triamcinolone Acetonide 0.1 % 09/09/2019 12:00:00 AM EDT 1.0 {appli cation} active Triamcinolone Acetonide 0 .1 % eCW1 (Pending Sale To [facility]) Triamcinolone Acetonide 1 MG/ML Topical Cream Triamcin olone Acetonide 0.1 % Triamcinolone Acetonide 0.1 % 09/09/2019 12:00:00 AM EDT 1.0 {appli cation} active Triamcinolone Acetonide 0 .1 % eCW1 (Pending Sale To [facility]) Triamcinolone Acetonide 1 MG/ML Topical Cream Triamcin olone Acetonide 0.1 % Triamcinolone Acetonide 0.1 % 09/09/2019 12:00:00 AM EDT 1.0 {appli cation} active Triamcinolone Acetonide 0 .1 % eCW1 (Pending Sale To [facility]) Triamcinolone Acetonide 1 MG/ML Topical Cream Triamcin olone Acetonide 0.1 % Triamcinolone Acetonide 0.1 % 09/09/2019 12:00:00 AM EDT 1.0 {appli cation} active Triamcinolone Acetonide 0 .1 % eCW1 (Pending Sale To [facility]) Triamcinolone Acetonide 1 MG/ML Topical Cream Triamcin olone Acetonide 0.1 % Triamcinolone Acetonide 0.1 % 09/09/2019 12:00:00 AM EDT 1.0 {appli cation} active Triamcinolone Acetonide 0 .1 % eCW1 (Pending Sale To [facility]) Triamcinolone Acetonide 1 MG/ML Topical Cream Triamcin olone Acetonide 0.1 % Triamcinolone Acetonide 0.1 % 09/09/2019 12:00:00 AM EDT 1.0 {appli cation} active Triamcinolone Acetonide 0 .1 % eCW1 (Pending Sale To [facility]) Triamcinolone Acetonide 1 MG/ML Topical Cream Triamcin olone Acetonide 0.1 % Triamcinolone Acetonide 0.1 % 09/09/2019 12:00:00 AM EDT 1.0 {appli cation} active Triamcinolone Acetonide 0 .1 % eCW1 (Pending Sale To [facility]) Triamcinolone Acetonide 1 MG/ML Topical Cream Triamcin olone Acetonide 0.1 % Triamcinolone Acetonide 0.1 % 09/09/2019 12:00:00 AM EDT 1.0 {appli cation} active Triamcinolone Acetonide 0 .1 % eCW1 (Pending Sale To [facility]) Triamcinolone Acetonide 1 MG/ML Topical Cream Triamcin olone Acetonide 0.1 % Triamcinolone Acetonide 0.1 % 09/09/2019 12:00:00 AM EDT 1.0 {appli cation} active Triamcinolone Acetonide 0 .1 % eCW1 (Pending Sale To [facility]) Triamcinolone Acetonide 1 MG/ML Topical Cream Triamcin olone Acetonide 0.1 % Triamcinolone Acetonide 0.1 % 09/09/2019 12:00:00 AM EDT 1.0 {appli cation} active Triamcinolone Acetonide 0 .1 % eCW1 (Pending Sale To [facility]) gabapentin 300 MG Oral Capsule Gabapentin 300 MG Oral Capsule (NEURONTIN) Gabapentin 300 MG Oral Capsule (NEURONTIN) 08/30/2019 12:00:00 AM EDT [facility] methylPREDNISolone 4 MG Oral Tablet Therapy Pack (MEDROL DOS EPACK) 0582-4915-15 07/18/2019 12:00:00 AM EST [facility] Acetaminophen 325 MG / Oxycodone Hydrochloride 5 MG Or al Tablet Oxycodone-Acetaminophen 07/17/2019 12:00:00 AM EST completed MEDENT ([facility] ) duloxetine 60 MG Delayed Release Oral Capsule [Cymbalt a] Cymbalta 60 MG Cymbalta 60 MG 07/16/2019 12:00:00 AM EST 1.0 {capsule} acti ve Cymbalta 60 MG eCW1 (Pending Sale To [facility]) duloxetine 60 MG Delayed Release Oral Capsule [Cymbalt a] Cymbalta 60 MG Cymbalta 60 MG 07/16/2019 12:00:00 AM EST 1.0 {capsule} acti ve Cymbalta 60 MG eCW1 (Pending Sale To [facility]) duloxetine 60 MG Delayed Release Oral Capsule [Cymbalt a] Cymbalta 60 MG Cymbalta 60 MG 07/16/2019 12:00:00 AM EST 1.0 {capsule} acti ve Cymbalta 60 MG eCW1 (Pending Sale To [facility]) duloxetine 60 MG Delayed Release Oral Capsule [Cymbalt a] Cymbalta 60 MG Cymbalta 60 MG 07/16/2019 12:00:00 AM EST 1.0 {capsule} acti ve Cymbalta 60 MG eCW1 (Pending Sale To [facility]) duloxetine 60 MG Delayed Release Oral Capsule [Cymbalt a] Cymbalta 60 MG Cymbalta 60 MG 07/16/2019 12:00:00 AM EST 1.0 {capsule} acti ve Cymbalta 60 MG eCW1 (Pending Sale To [facility]) duloxetine 60 MG Delayed Release Oral Capsule [Cymbalt a] Cymbalta 60 MG Cymbalta 60 MG 07/16/2019 12:00:00 AM EST 1.0 {capsule} acti ve Cymbalta 60 MG eCW1 (Pending Sale To [facility]) duloxetine 60 MG Delayed Release Oral Capsule [Cymbalt a] Cymbalta 60 MG Cymbalta 60 MG 07/16/2019 12:00:00 AM EST 1.0 {capsule} acti ve Cymbalta 60 MG eCW1 (Pending Sale To [facility]) duloxetine 60 MG Delayed Release Oral Capsule [Cymbalt a] Cymbalta 60 MG Cymbalta 60 MG 07/16/2019 12:00:00 AM EST active Cymbalta 60 MG eCW1 (Pending Sale To [facility]) duloxetine 60 MG Delayed Release Oral Capsule [Cymbalt a] Cymbalta 60 MG Cymbalta 60 MG 07/16/2019 12:00:00 AM EST 1.0 {capsule} acti ve Cymbalta 60 MG eCW1 (Pending Sale To [facility]) duloxetine 60 MG Delayed Release Oral Capsule [Cymbalt a] Cymbalta 60 MG Cymbalta 60 MG 07/16/2019 12:00:00 AM EST 1.0 {capsule} acti ve Cymbalta 60 MG eCW1 (Pending Sale To [facility]) duloxetine 60 MG Delayed Release Oral Capsule [Cymbalt a] Cymbalta 60 MG Cymbalta 60 MG 07/16/2019 12:00:00 AM EST 1.0 {capsule} acti ve Cymbalta 60 MG eCW1 (Pending Sale To [facility]) duloxetine 60 MG Delayed Release Oral Capsule [Cymbalt a] Cymbalta 60 MG Cymbalta 60 MG 07/16/2019 12:00:00 AM EST 1.0 {capsule} acti ve Cymbalta 60 MG eCW1 (Pending Sale To [facility]) duloxetine 60 MG Delayed Release Oral Capsule [Cymbalt a] Cymbalta 60 MG Cymbalta 60 MG 07/16/2019 12:00:00 AM EST 1.0 {capsule} acti ve Cymbalta 60 MG eCW1 (Pending Sale To [facility]) duloxetine 60 MG Delayed Release Oral Capsule [Cymbalt a] Cymbalta 60 MG Cymbalta 60 MG 07/16/2019 12:00:00 AM EST 1.0 {capsule} acti ve Cymbalta 60 MG eCW1 (Pending Sale To [facility]) duloxetine 60 MG Delayed Release Oral Capsule [Cymbalt a] Cymbalta 60 MG Cymbalta 60 MG 07/16/2019 12:00:00 AM EST 1.0 {capsule} acti ve Cymbalta 60 MG eCW1 (Pending Sale To [facility]) duloxetine 60 MG Delayed Release Oral Capsule [Cymbalt a] Cymbalta 60 MG Cymbalta 60 MG 07/16/2019 12:00:00 AM EST 1.0 {capsule} acti ve Cymbalta 60 MG eCW1 (Pending Sale To [facility]) duloxetine 60 MG Delayed Release Oral Capsule [Cymbalt a] Cymbalta 60 MG Cymbalta 60 MG 07/16/2019 12:00:00 AM EST 1.0 {capsule} acti ve Cymbalta 60 MG eCW1 (Pending Sale To [facility]) duloxetine 60 MG Delayed Release Oral Capsule [Cymbalt a] Cymbalta 60 MG Cymbalta 60 MG 07/16/2019 12:00:00 AM EST active TAKE ONE CAPSULE BY MOUTH AT BEDTIME eCW1 (Pending Sale To [facility]) duloxetine 60 MG Delayed Release Oral Capsule [Cymbalt a] Cymbalta 60 MG Cymbalta 60 MG 07/16/2019 12:00:00 AM EST 1.0 {capsule} acti ve Cymbalta 60 MG eCW1 (Pending Sale To [facility]) duloxetine 60 MG Delayed Release Oral Capsule [Cymbalt a] Cymbalta 60 MG Cymbalta 60 MG 07/16/2019 12:00:00 AM EST 1.0 {capsule} acti ve Cymbalta 60 MG eCW1 (Pending Sale To [facility]) duloxetine 60 MG Delayed Release Oral Capsule [Cymbalt a] Cymbalta 60 MG Cymbalta 60 MG 07/16/2019 12:00:00 AM EST 1.0 {capsule} acti ve Cymbalta 60 MG eCW1 (Pending Sale To [facility]) duloxetine 60 MG Delayed Release Oral Capsule [Cymbalt a] Cymbalta 60 MG Cymbalta 60 MG 07/16/2019 12:00:00 AM EST 1.0 {capsule} acti ve Cymbalta 60 MG eCW1 (Pending Sale To [facility]) duloxetine 60 MG Delayed Release Oral Capsule [Cymbalt a] Cymbalta 60 MG Cymbalta 60 MG 07/16/2019 12:00:00 AM EST active TAKE ONE CAPSULE BY MOUTH AT BEDTIME eCW1 (Pending Sale To [facility]) duloxetine 60 MG Delayed Release Oral Capsule [Cymbalt a] Cymbalta 60 MG Cymbalta 60 MG 07/16/2019 12:00:00 AM EST 1.0 {capsule} acti ve Cymbalta 60 MG eCW1 (Pending Sale To [facility]) duloxetine 60 MG Delayed Release Oral Capsule [Cymbalt a] Cymbalta 60 MG Cymbalta 60 MG 07/16/2019 12:00:00 AM EST 1.0 {capsule} acti ve Cymbalta 60 MG eCW1 (Pending Sale To [facility]) duloxetine 60 MG Delayed Release Oral Capsule [Cymbalt a] Cymbalta 60 MG Cymbalta 60 MG 07/16/2019 12:00:00 AM EST 1.0 {capsule} acti ve Cymbalta 60 MG eCW1 (Pending Sale To [facility]) duloxetine 60 MG Delayed Release Oral Capsule [Cymbalt a] Cymbalta 60 MG Cymbalta 60 MG 07/16/2019 12:00:00 AM EST 1.0 {capsule} acti ve Cymbalta 60 MG eCW1 (Pending Sale To [facility]) duloxetine 60 MG Delayed Release Oral Capsule [Cymbalt a] Cymbalta 60 MG Cymbalta 60 MG 07/16/2019 12:00:00 AM EST active Cymbalta 60 MG eCW1 (Pending Sale To [facility]) duloxetine 60 MG Delayed Release Oral Capsule [Cymbalt a] Cymbalta 60 MG Cymbalta 60 MG 07/16/2019 12:00:00 AM EST 1.0 {capsule} acti ve Cymbalta 60 MG eCW1 (Pending Sale To [facility]) duloxetine 60 MG Delayed Release Oral Capsule [Cymbalt a] Cymbalta 60 MG Cymbalta 60 MG 07/16/2019 12:00:00 AM EST 1.0 {capsule} acti ve Cymbalta 60 MG eCW1 (Pending Sale To [facility]) duloxetine 60 MG Delayed Release Oral Capsule [Cymbalt a] Cymbalta 60 MG Cymbalta 60 MG 07/16/2019 12:00:00 AM EST 1.0 {capsule} acti ve Cymbalta 60 MG eCW1 (Pending Sale To [facility]) duloxetine 60 MG Delayed Release Oral Capsule [Cymbalt a] Cymbalta 60 MG Cymbalta 60 MG 07/16/2019 12:00:00 AM EST active TAKE ONE CAPSULE BY MOUTH AT BEDTIME eCW1 (Pending Sale To [facility]) duloxetine 60 MG Delayed Release Oral Capsule [Cymbalt a] Cymbalta 60 MG Cymbalta 60 MG 07/16/2019 12:00:00 AM EST 1.0 {capsule} acti ve Cymbalta 60 MG eCW1 (Pending Sale To [facility]) duloxetine 60 MG Delayed Release Oral Capsule [Cymbalt a] Cymbalta 60 MG Cymbalta 60 MG 07/16/2019 12:00:00 AM EST 1.0 {capsule} acti ve Cymbalta 60 MG eCW1 (Pending Sale To [facility]) duloxetine 60 MG Delayed Release Oral Capsule [Cymbalt a] Cymbalta 60 MG Cymbalta 60 MG 07/16/2019 12:00:00 AM EST 1.0 {capsule} acti ve Cymbalta 60 MG eCW1 (Pending Sale To [facility]) duloxetine 60 MG Delayed Release Oral Capsule [Cymbalt a] Cymbalta 60 MG Cymbalta 60 MG 07/16/2019 12:00:00 AM EST 1.0 {capsule} acti ve Cymbalta 60 MG eCW1 (Pending Sale To [facility]) duloxetine 60 MG Delayed Release Oral Capsule [Cymbalt a] Cymbalta 60 MG Cymbalta 60 MG 07/16/2019 12:00:00 AM EST 1.0 {capsule} acti ve Cymbalta 60 MG eCW1 (Pending Sale To [facility]) Phenazopyridine hydrochloride 200 MG Del ayed Release Oral Tablet Phenazopyridine HCl 200 MG Oral Tablet (PYRIDIUM) Phenazopyridine HCl 200 MG Oral Tablet (PYRIDIUM) 07/09/2019 12:00:00 AM EST aborted TAKE 1 TABLET BY MOUTH EVERY 8 HOURS [facility] Hydrochlorothiazide 12.5 MG / Lisinopril 10 MG Oral Tablet Lisinopril- hydroCHLOROthiazide 10-12.5 MG Oral Tablet (ZESTORETIC) Lisinopril- hydroCHLOROthiazide 10-12.5 MG Oral Tablet (ZESTORETIC) 06/20/2019 12:00:00 AM EST 1 {tbl} Oral active Take 1 tablet by mouth daily [facility] benzonatate 100 MG Oral Capsule [Tessalon Perles] Ayanna travis Perles 100 MG Tessalon Perles 100 MG 05/17/2019 12:00:00 AM EST active 1 capsule as needed eCW1 (Pending Sale To [facility]) benzonatate 100 MG Oral Capsule [Tessalon Perles] Ayanna travis Perles 100 MG Tessalon Perles 100 MG 05/17/2019 12:00:00 AM EST active 1 capsule as needed eCW1 (Pending Sale To [facility]) Amoxicillin 500 MG Oral Capsule Amoxicillin 500 MG Ora l Capsule (AMOXIL) Amoxicillin 500 MG Oral Capsule (AMOXIL) 03/22/2019 12:00:00 AM EST aborted as needed [facility] Cholecalciferol 2000 UNT Oral Capsule Vitamin D3 50 MC G (1999) Oral Capsule Vitamin D3 50 MCG (1999) Oral Capsule 01/31/2019 12:00:00 AM EDT Oral aborted Take by mouth daily [facility] tizanidine 4 MG Oral Tablet tiZANidine HCl 4 MG Oral T ablet (ZANAFLEX) tiZANidine HCl 4 MG Oral Tablet (ZANAFLEX) 12/14/2018 12:00:00 AM EDT aborted [facility] Naproxen 500 MG Oral Tablet Naproxen 500 MG Oral Table t (NAPROSYN) Naproxen 500 MG Oral Tablet (NAPROSYN) 12/12/2018 12:00:00 AM EDT aborted [facility] Acetaminophen 325 MG / butalbital 50 MG / Caffeine 40 MG / Codeine Phosphate 30 MG Oral Capsule bmsshrbksa-ovvxpfgpdzkqp-iacwhyly-codeine (FIORICET WITH CODEINE) [id number] MG per capsule xjrzjajjok-jvgvmzqzbjxnm-ulefweky-codein e (FIORICET WITH CODEINE) [phone] MG per capsule 09/27/2018 12:00:00 AM EDT aborted as needed [facility] 24 HR Bupropion Hydrochloride 300 MG Ext ended Release Oral Tablet buPROPion (WELLBUTRIN XL) 300 MG 24 hr tablet buPROPion (WELLBUTRIN XL) 300 MG 24 hr tablet 05/03/2018 12:00:00 AM EST 300 mg Oral aborted Take 300 mg by mouth every morning With 150 mg tablet. GAD=070 mg [facility] Acetaminophen 650 MG Rectal Suppository acetaminophen (TYLENOL) 650 MG suppository acetaminophen (TYLENOL) 650 MG suppository 09/08/2017 12:00:00 AM EDT 650 mg Rectal aborted Insert 1 suppository (650 mg total) into the rectum every 4 (four) hours as needed for fever (for temperature of 101 or greater.) [facility] potassium citrate 5 MEQ Extended Release Oral Tablet Potassium Citrate ER 5 MEQ (540 MG) Oral Tablet Extended Release (UROCIT-K) Potassium Citrate ER 5 MEQ (540 MG) Oral Tablet Extended Release (UROCIT-K) 11/08/2010 12:00:00 AM EDT Oral aborted Take by mouth [facility] Hydrochlorothiazide 12.5 MG Oral Tablet hydroCHLOROthiazide 12.5 MG Oral Tablet (HYDRODIURIL) hydroCHLOROthiazide 12.5 MG Oral Tablet (HYDRODIURIL) 11/08/2010 12:00:00 AM EDT Oral aborted Take by mouth [facility] potassium citrate 5 MEQ Extended Release Oral Tablet potassium citrate (UROCIT- K) 5 MEQ (540 MG) SR tablet potassium citrate (UROCIT-K) 5 MEQ (540 MG) SR tablet 11/08/2010 12:00:00 AM EDT 1 {tbl} Oral aborted Take 1 tablet by mouth daily [facility] Folic Acid 1 MG Oral Tablet folic acid (FOLVITE) 1 MG tablet folic acid (FOLVITE) 1 MG tablet 1 mg Oral aborted Ta ke 1 mg by mouth daily [facility] Acetaminophen 325 MG Oral Tablet acetaminophen (TYLENO L) 325 MG tablet acetaminophen (TYLENOL) 325 MG tablet 650 mg Oral aborted Take 650 mg by mouth every 6 (six) hours as needed for pain [facility] Acetaminophen 325 MG / Oxycodone Hydroch loride 5 MG Oral Tablet oxycodone- acetaminophen (PERCOCET) 5-325 MG per tablet oxycodone-acetaminophen (PERCOCET) 5-325 MG per tablet 1 {tbl} Oral aborted Take 1 tablet by mouth every 4 (four) hours as needed for Pain [facility] Aspirin 81 MG Delayed Release Oral Tablet aspirin EC 8 1 MG EC tablet aspirin EC 81 MG EC tablet 81 mg Oral aborted Take 81 mg by mouth daily [facility] Ascorbic Acid 500 MG Oral Tablet ascorbic acid (VITAMI N C) 500 MG tablet ascorbic acid (VITAMIN C) 500 MG tablet 500 mg Oral aborted Take 500 mg by mouth daily [facility] clopidogrel 75 MG Oral Tablet clopidogrel (PLAVIX) 75 MG tablet clopidogrel (PLAVIX) 75 MG tablet 75 mg Oral aborted Take 75 mg by mouth every evening [facility] Mupirocin 0.02 MG/MG Topical Ointment mupirocin (BACTR OBAN) 2 % ointment mupirocin (BACTROBAN) 2 % ointment Topical ab orted Apply topically Three times daily [facility] Mupirocin 0.02 MG/MG Topical Ointment mupirocin (BACTR OBAN) 2 % ointment mupirocin (BACTROBAN) 2 % ointment Topical ab orted Apply topically as needed [facility] Ranitidine 150 MG Oral Tablet ranitidine (ZANTAC) 150 MG tablet ranitidine (ZANTAC) 150 MG tablet 150 mg Oral aborted Take 150 mg by mouth Two times daily as needed for Heartburn [facility] Tamsulosin hydrochloride 0.4 MG Oral Capsule tamsulosi n (FLOMAX) 0.4 MG capsule tamsulosin (FLOMAX) 0.4 MG capsule 0.4 mg Oral abo rted Take 0.4 mg by mouth daily [facility] Aspirin 81 MG Delayed Release Oral Tablet aspirin 81 M G EC tablet aspirin 81 MG EC tablet 81 mg Oral aborted Take 81 mg by mouth daily [facility] 24 HR Bupropion Hydrochloride 300 MG Ext ended Release Oral Tablet buPROPion (WELLBUTRIN XL) 300 MG 24 hr tablet buPROPion (WELLBUTRIN XL) 300 MG 24 hr tablet 300 mg Oral aborted Take 300 mg by mouth daily Take with 150mg tablet for total daily dose of 450mg [facility] buspirone hydrochloride 30 MG Oral Tablet busPIRone (B USPAR) 30 MG tablet busPIRone (BUSPAR) 30 MG tablet 30 mg Oral aborte d Take 30 mg by mouth Two Times Daily [facility] apixaban 2.5 MG Oral Tablet apixaban (ELIQUIS) 2.5 MG TABS tablet apixaban (ELIQUIS) 2.5 MG TABS tablet 2.5 mg Oral aborted Take 2.5 mg by mouth 2 (two) times a day [facility] Folic Acid 1 MG Oral Tablet folic acid (FOLVITE) 1 MG tablet folic acid (FOLVITE) 1 MG tablet 1 mg Oral aborted Ta ke 1 mg by mouth daily. [facility] Insurance Providers Payer name Policy type / Coverage type Policy ID Covered democrat ID Covered democrat's relationship to encinas Policy [place] Plan Information [place] [id number] SP [id number] [facility] [id number] SP [id number] MEDICAID [id number] [facility] MEDICARE [id number] [facility](MCAID) O [id number] S [id number] MEDICAID M [id number] S [id number] [facility] [id number] SP [id number] [facility] [employer] [id number] Self [id number] [facility] MEDICARE [id number] Nohemy [id number] MEDICAID [id number] Nohemy [id number] UHC UNITED MEDICARE DUAL G [id number] Self [id number] MEDICAID M [id number] Self [id number] [facility] [employer] P [id number] S [id number] Medicaid S [id number] S [id number] [facility] [employer] P [id number] S [id number] [facility] [id number] SP [id number] MEDICARE [id number] SP [id number] A [facility] MEDICARE DUAL G [id number] Self [id number] [facility] Plan Medicare F [id number] SELF [id number] Medicaid [facility] Healthcare S D [id number] SELF [id number] MEDICAID [id number] SP [id number] MEDICARE [id number] SP [id number] MEDICAID [id number] SP [id number] [facility] [id number] SP [id number] MEDICARE [id number] Nohemy [id number] A MEDICARE [id number] Nohemy [id number] A [facility] P [id number] S [id number] Medicare S [id number] S [id number] ANSI-Not a Secondary Insurance [id number] ANSI-Medicaid [id number] ANSI-Medicare Part B [id number] ANSI-Not a Secondary Insurance [id number] ANSI-Medicaid [id number] ANSI-Medicare Part B [id number] ANSI-Medicaid [id number] ANSI-Not a Secondary Insurance [id number] ANSI-Medicare Part B [id number] ANSI-Not a Secondary Insurance [id number] ANSI-Medicaid [id number] ANSI-Medicare Part B [id number] ANSI-Medicaid [id number] ANSI-Not a Secondary Insurance [id number] ANSI-Medicare Part B [id number] ANSI-Medicare Part B [id number] ANSI-Medicaid [id number] ANSI-Not a Secondary Insurance [id number] ANSI-Medicaid [id number] ANSI-Medicare Part B [id number] ANSI-Not a Secondary Insurance [id number] ANSI-Medicaid [id number] ANSI-Medicare Part B [id number] ANSI-Not a Secondary Insurance [id number] ANSI-Not a Secondary Insurance [id number] ANSI-Medicare Part B [id number] ANSI-Medicaid [id number] [facility] [id number] ANSI-Medicaid [id number] ANSI-Medicare Part B [id number] ANSI-Not a Secondary Insurance [id number] ANSI-Not a Secondary Insurance [id number] ANSI-Medicaid [id number] ANSI-Medicare Part B [id number] ANSI-Medicaid [id number] ANSI-Not a Secondary Insurance [id number] ANSI-Medicare Part B [id number] MEDICARE COMPLETE [id number] SP [id number] [facility] [id number] SP [id number] ANSI-Not a Secondary Insurance [id number] ANSI-Medicaid [id number] ANSI-Medicare Part B [id number] [facility] MEDICARE DUAL G [id number] Self [id number] ANSI-Medicaid [id number] ANSI-Medicare Part B [id number] ANSI-Not a Secondary Insurance [id number] [facility] MEDICARE DUAL G [id number] Self [id number] MEDICARE A [id number] Self [id number] [facility] MEDICARE DUAL G [id number] Self [id number] [place] [id number] Self [id number] ANSI-Medicaid [id number] ANSI-Medicare Part B [id number] ANSI-Not a Secondary Insurance [id number] ANSI-Medicaid [id number] ANSI-Medicare Part B [id number] ANSI-Medicaid [id number] ANSI-Medicare Part B [id number] Medicaid S [id number] S [id number] ANSI-Medicare Part B [id number] ANSI-Medicaid [id number] ANSI-Medicare Part B [id number] ANSI-Medicaid [id number] ANSI-Medicaid [id number] ANSI-Medicare Part B [id number] ANSI-Medicaid [id number] ANSI-Medicare Part B [id number] ANSI-Medicaid [id number] ANSI-Medicare Part B [id number] ANSI-Medicare Part B [id number] ANSI-Medicaid [id number] ANSI-Medicare Part B [id number] ANSI-Medicaid [id number] ANSI-Medicare Part B [id number] ANSI-Medicaid [id number] ANSI-Medicaid [id number] ANSI-Medicare Part B [id number] ANSI-Medicare Part B [id number] ANSI-Medicaid [id number] ANSI-Medicaid [id number] ANSI-Medicare Part B [id number] ANSI-Medicare Part B [id number] ANSI-Medicaid [id number] ANSI-Medicaid [id number] ANSI-Medicare Part B [id number] ANSI-Medicaid [id number] ANSI-Medicare Part B [id number] ANSI-Medicaid [id number] ANSI-Medicare Part B [id number] ANSI-Medicare Part B [id number] ANSI-Medicaid [id number] ANSI-Medicare Part B [id number] ANSI-Medicaid [id number] ANSI-Medicaid [id number] ANSI-Medicare Part B [id number] ANSI-Medicare Part B [id number] ANSI-Medicaid [id number] Medicaid [place] Part [place] [id number] Self [id number] [place]/N[place] Medicare Primary [id number] Self [id number] MEDICARE A [id number] Self [id number] [place] Part [place] [id number] Self [id number] [place]/NGS Medicare Primary [id number] Self [id number] MEDICARE [id number] ANSI-Medicaid [id number] ANSI-Medicare Part B [id number] ANSI-Medicare Part B [id number] ANSI-Medicaid [id number] ANSI-Medicaid [id number] ANSI-Medicare Part B [id number] MEDICAID [id number] SP [id number] MEDICARE [id number] SP [id number] A ANSI-Medicaid [id number] ANSI-Medicare Part B [id number] Medicaid [place] Part [place] [id number] Self [id number] Medicare [place]/[facility] Medicare Primary [id number] Self [id number] MEDICAID [id number] SP [id number] MEDICARE [id number] SP [id number] A MEDICARE C [id number] S [id number] A [facility] PART B C [id number] S [id number] MEDICAID [id number] Nohemy [id number] MEDICARE [id number] Nohemy [id number] A MEDICAID PI PI MEDICARE PI PI Medicare C [id number] SELF [id number] A [facility] C [id number] S [id number] MEDICAID [id number] SP [id number] MEDICAID [id number] SP [id number] [facility] SVC OPTIONS C [id number] S [id number] MEDICAID [id number] SP [id number] MEDICARE [id number] SP [id number] A MEDICAID [id number] SP [id number] Medicaid Dental O [id number] S [id number] Self Pay S UNAVAILABLE S UNAVAILA BLE MEDICARE [id number] SP [id number] A [facility] F[facility]-(DO Not Use) Medig[place] Part B Self [place] Self MEDICAID [id number] SP [id number] MEDICAID [id number] SP [id number] MEDICARE A [id number] Self [id number] A Medicare [place] Gov[place] Servi Medicare Primary Self [place] [employer] *NOTFORTODAYSVISIT* S P *NOTFORTODAYSVISIT* BCBS EMPIRE [place] [facility] [id number] SP [id number] [facility] [id number] [facility] [id number] [employer] [id number] SP [id number] [employer] [id number] SP [id number] [place] [id number] SP [id number] Problems, Conditions, and Diagnoses Code Display Name Description Problem Type Effective Dates Data Source(s) G47.30 Sleep apnea Sleep apnea [id number] 06/26/2020 12:00:00 AM EST [facility] Z01.818 Preop examination Preop examination [id number] 06/26/2020 12:00:00 AM [facility] Z22.322 MRSA (methicillin resistant staph aureus ) culture positive MRSA (methicillin resistant staph aureus) culture positive [id number] 06/26/2020 12:00:00 AM [facility] F32.9 Depression Depression [id number] 06/26/2020 12:00:00 AM [facility] F41.9 Anxiety Anxiety [id number] 06/26/2020 12:00:00 AM [facility] M47.816 [id number] Spondylosis without myelopathy or radiculopathy, lumbar region Problem 05/27/2020 12:00:00 AM EST [facility] ([facility]) M47.817 [id number] Spondylosis without myelopathy or radiculopathy, lumbosacral region Problem 05/27/2020 12:00:00 AM EST eCW1 ([facility]) R32 Urinary incontinence Urinary incontinence Problem 05/22/2020 12:00:00 AM EST eCW1 (Pending Sale To [facility]) K90.9 [id number] Intestinal malabsorption, unspecified typ e Problem 05/21/2020 12:00:00 AM EST eCW1 (Pending Sale To [facility]) M54.41 [id number] Lumbago with sciatica, right side Problem 11/08/2019 12:00:00 AM EDT eC (Pending Sale To [facility]) F33.1 [id number] Major depressive disorder, recurrent, mod erate Problem 10/03/2019 12:00:00 AM EDT eCW1 (Pending Sale To [facility]) F41.1 36102438 Generalized anxiety disorder Problem 020 12:00:00 AM EDT eCW1 (Pending Sale To [facility]) F43.10 94392798 Post-traumatic stress disorder, unspecifi ed Problem 10/03/2019 12:00:00 AM EDT eCW1 (Pending Sale To [facility]) F43.10 47986844 Post-traumatic stress disorder, unspecifi ed Problem 10/03/2019 12:00:00 AM EDT eCW1 (Pending Sale To [facility]) F33.1 649857063 Major depressive disorder, recurrent, mod erate Problem 10/03/2019 12:00:00 AM EDT eCW1 (Pending Sale To [facility]) F41.1 52018573 Generalized anxiety disorder Problem 020 12:00:00 AM EDT eCW1 (Pending Sale To [facility]) G62.0 3237877 Drug-induced polyneuropathy Problem 09/09/19 12:00:00 AM EDT eCW1 (Pending Sale To [facility]) G62.0 8846129 Drug-induced polyneuropathy Problem 09/09/19 12:00:00 AM EDT eCW1 (Pending Sale To [facility]) N39.46 735448306 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 Problem 08/29/2019 12:00:00 AM EDT eCW1 (Pending Sale To [facility]) R15.2 56462839 Fecal urgency Problem 08/29/2019 12:00:00 AM EDT eCW1 (Pending Sale To [facility]) R15.9 [id number] Full incontinence of feces Problem 08/29/2019 12:00:00 AM EDT eCW1 (Pending Sale To [facility]) R32 97515922 Unspecified urinary incontinence Problem 08/29/2019 12:00:00 AM EDT eCW1 (Pending Sale To [facility]) M54.31 412767460 Chronic sciatica of right side Problem 08/29/2019 12:00:00 AM EDT eCW1 (Pending Sale To [facility]) R15.2 09060266 Fecal urgency Problem 08/29/2019 12:00:00 AM EDT eCW1 (Pending Sale To [facility]) R15.9 [id number] Full incontinence of feces Problem 08/29/2019 12:00:00 AM EDT eCW1 (Pending Sale To [facility]) R32 36069033 Unspecified urinary incontinence Problem 08/29/2019 12:00:00 AM EDT eCW1 (Pending Sale To [facility]) N39.46 675052234 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 Problem 08/29/2019 12:00:00 AM EDT eCW1 (Pending Sale To [facility]) M54.31 701329256 Chronic sciatica of right side Problem 08/29/2019 12:00:00 AM EDT eCW1 (Pending Sale To [facility]) I73.9 Claudication Claudication [id number] 06/20/2019 12:00:00 A M [facility] Z68.44 127826480 Body mass index (BMI) 60.0-69.9, adult Pr oblem 05/14/2019 12:00:00 AM EST eCW1 (Pending Sale To [facility]) G89.29 88856012 Other chronic pain Problem 05/14/2019 12:00: 00 AM EST eCW1 (Pending Sale To [facility]) G89.29 59362688 Other chronic pain Problem 05/14/2019 12:00: 00 AM EST [facility] (Pending Sale To [facility]) Z68.44 800130179 Body mass index (BMI) 60.0-69.9, adult Pr oblem 05/14/2019 12:00:00 AM EST eCW (Pending Sale To [facility]) I26.99 Other pulmonary embolism without acute c or pulmonale Other pulmonary embolism without acute c Diagnosis 06/26/2020 11:28:32 AM [facility] I73.9 Peripheral vascular disease, unspecified Peripheral vascular disease, unspecified Diagnosis 06/26/2020 11:28:32 AM [facility] Z95.2 Presence of prosthetic heart valve Presence of p rosthetic heart valve Diagnosis 06/26/2020 11:28:32 AM [facility] E66.01 Morbid (severe) obesity due to excess ca lories Morbid (severe) obesity due to excess ca Diagnosis 06/26/2020 11:28:32 AM EST [facility] G47.30 Sleep apnea, unspecified Sleep apnea, unspecified Diag nosis 06/26/2020 11:28:32 AM EST [facility] Z01.818 Encounter for other preprocedural examin ation Encounter for other preprocedural examin Diagnosis 06/26/2020 11:28:32 AM EST [facility] I10 Essential (primary) hypertension Essential (primary) h ypertension Diagnosis 02/05/2020 09:27:18 AM EDT [facility] Surgeries/Procedures Procedure Description Date Indications Data Source(s) Pain Procedure Log 06/11/2020 12:00:00 AM EST eCW1 (Pending Sale To [facility]) Medication: Sawyer Tablet 5mg/325mg Orally (Hydrocodone/Aceta minophen) 05/27/2020 12:00:00 AM EST eCW1 ([facility]) Unclassified drugs 05/27/2020 12:00:00 AM EST eCW1 (Pending Sale To [facility]) Medication: Sawyer Tablet 5mg/325mg Orally (Hydrocodone/Aceta minophen) 03/23/2020 12:00:00 AM EST eCW1 ([facility]) Unclassified drugs 03/23/2020 12:00:00 AM EST eCW1 (Pending Sale To [facility]) Saline Lock 03/23/2020 12:00:00 AM EST e CW1 (Pending Sale To [facility]) Immunization: Flublok Quadrivalent (18 years & older) 0.5mL IM (Influenza) 02/28/2020 12:00:00 AM EDT eCW1 ([facility]) X-Ray Spine Lumbosacral Complete Inc Bending Views Min Of 6 12/04/2019 12:00:00 AM EDT PATSY ([facility]) SURGERY CASE REQUEST OUTSIDE FACILITY ONLY SURGERY CA SE REQUEST OUTSIDE FACILITY ONLY Routine 2019 11:14 AM EDT Right shoulder pain, unspecified chronicity 2019 03:14 :19 PM EDT Right shoulder pain, unspecified chronicity [facility] Right shoulder pain, unspecified chronic ity Office Visit, Est Pt., Level 4 PC 10/08/2019 12:00:00 AM EDT eCW1 (Pending Sale To [facility]) Office Visit, Est Pt., Level 2 FC 10/08/2019 12:00:00 AM EDT eCW1 (Pending Sale To [facility]) PSYTX W PT 45 MINUTES 10/04/2019 12:00:00 AM EDT eCW1 (Pending Sale To [facility]) PSYCH DIAGNOSTIC EVALUATION 09/17/2019 12:00:00 AM EDT eCW1 (Pending Sale To [facility]) NEB/MDI RX INITIAL 05/17/2019 12:00:00 AM EST eCW1 (Pending Sale To [facility]) Albuterol, inhalation solution, fda-appr keri final product, non-compounded, administered through dme, unit dose, 1 mg 05/17/2019 12:00:00 AM EST eCW1 (Pending Sale To [facility]) Influenza A+B 05/17/2019 12:00:00 AM EST eCW1 (Pending Sale To [facility]) Results ID Date Data Source [id number] 06/28/2020 12:00:00 AM EST [facility] Name Value Range Interpretation Code Description Data Amanda rce(s) Supporting Document(s) SARS coronavirus 2 RNA [Presence] in Res piratory specimen by LISA with probe detection NEGATIVE [place]SDOH This lab was ordered by Mikey Henderson and reported by [employer]. ID Date Data Source [id number] 06/23/2020 10:30:53 AM EST [facility] Name Value Range Interpretation Code Description Data Amanda rce(s) Supporting Document(s) Progress Note [facility] DFNXGv7jGhVJNxEp90/LZXriFCIff4PdOCzhIIz2GCcgCTOzJ7TiOAO2qN6fAGR5RYzKEjLzDiQeFtD9 lbm [file] SqOkCWJxKWVaYEN0FunrE5O4CWn6XvDlZHWzFh6t XSANCj4+JBmxmZTqxMxzRNMGCmA0JmNtHMvaNNQLVq0T ID Date Data Source PT & APTT 06/11/2020 12:00:00 AM EST eCW1 ([facility]) Name Value Range Interpretation Code Description Data Amanda rce(s) Supporting Document(s) 13.5 12.5-14.3 eCW1 ([facility]) 29.4 24.2-38.5 eCW1 ([facility]) 1.01 eCW1 ([facility]) ID Date Data Source Basic Metabolic Profile (BMP) 06/11/2020 12:00:00 AM EST eCW 1 ([facility] To [facility]) Name Value Range Interpretation Code Description Data Amanda rce(s) Supporting Document(s) 86 70-100 eCW1 ([facility]) 20 7-18 eCW1 ([facility]) > 60.0 >45 eCW1 ([facility]) 0.98 0.55-1.30 eCW1 ([facility]) 4.4 3.5-5.1 eCW1 ([facility]) 143 136-145 eCW1 ([facility]) 105 98-107 eCW1 ([facility]) 9.6 8.8-10.2 eCW1 ([facility]) 32 21-32 eCW1 ([facility]) ID Date Data Source CBC - Complete Blood Count 06/11/2020 12:00:00 AM EST eCW1 ( [facility]) Name Value Range Interpretation Code Description Data Amanda rce(s) Supporting Document(s) 8.8 4.0-10.0 eCW1 ([facility]) 13.6 12.0-15.5 eCW1 ([facility]) 4.71 4.00-5.40 eCW1 ([facility]) 45.0 36.0-47.0 eCW1 ([facility]) 95.5 80.0-96.0 eCW1 ([facility]) 28.9 27.0-33.0 eCW1 ([facility]) 30.2 32.0-36.5 eCW1 ([facility]) 13.7 11.5-14.5 eCW1 ([facility]) 187 150-450 eCW1 ([facility]) ID Date Data Source NT-PRO BNP 06/11/2020 12:00:00 AM EST eCW1 ([facility]) Name Value Range Interpretation Code Description Data Amanda rce(s) Supporting Document(s) 290 <125 eCW1 ([facility]) ID Date Data Source [id number] 05/22/2020 11:00:00 AM EST [facility] Name Value Range Interpretation Code Description Data Amanda rce(s) Supporting Document(s) SARS coronavirus 2 RNA Not Detected [facility] This lab was ordered by [facility] and reported by [facility]. ID Date Data Source URINE CULTURE 05/22/2020 12:00:00 AM EST eCW1 ([facility]) Name Value Range Interpretation Code Description Data Amanda rce(s) Supporting Document(s) Laboratory studies (set) URINE CULTU RE eCW1 ([facility]) ID Date Data Source UA URINALYSIS 05/22/2020 12:00:00 AM EST eCW1 ([facility]) Name Value Range Interpretation Code Description Data Amanda rce(s) Supporting Document(s) Laboratory studies (set) ODALIS KNOX IS eCW1 ([facility]) ID Date Data Source [id number] 03/31/2020 02:37:02 PM EST [facility] Name Value Range Interpretation Code Description Data Amanda rce(s) Supporting Document(s) Progress Note [facility] LKOWRj3qMpQFJkSd87/CREykQVXsa5YxABktWZj5TRcpEPLhV7UjFZL3sU6sDNQ7MLfBTqBjAhThOUX1 lbm [file] AgICAgICAgICAgICAgICAgICAgICAgICAgICAgICAgICAgICAgICAgICAgICAgICAgICAgICAgICAgIC AgICAgICAgICANCiAgICAgICAgICAgICAgICAgICAg ICAgICAgICAgICAgICAgICAgICAgICAgICAgICAgICAgICAgICAgICAgICAgICAgICAgICAgICAgICAg ICAgICAgICAgICAgICAgICAgICANCiAgICAgICAgICAgICAgICAgICAgICAgICAgICAgICAgICAgICAg ICAgICAgICAgICAgICAgICAgICAgICAgICAgICAgIC AgICAgICAgICAgICAgICAgICAgICAgICAgICAgICANCiAgICAgICAgICAgICAgICAgICAgICAgICAgIC AgICAgICAgICAgICAgICAgICAgICAgICAgICAgICAgICAgICAgICAgICAgICAgICAgICAgICAgICAgIC AgICAgICAgICAgICANCiAgICAgICAgICAgICAgICAg ICAgICAgICAgICAgICAgICAgICAgICAgICAgICAgICAgICAgICAgICAgICAgICAgICAgICAgICAgICAg ICAgICAgICAgICAgICAgICAgICAgICANCiAgICAgICAgICAgICAgICAgICAgICAgICAgICAgICAgICAg ICAgICAgICAgICAgICAgICAgICAgICAgICAgICAgIC AgICAgICAgICAgICAgICAgICAgICAgICAgICAgICAgICANCiAgICAgICAgICAgICAgICAgICAgICAgIC AgICAgICAgICAgICAgICAgICAgICAgICAgICAgICAgICAgICAgICAgICAgICAgICAgICAgICAgICAgIC AgICAgICAgICAgICAgICANCiAgICAgICAgICAgICAg ICAgICAgICAgICAgICAgICAgICAgICAgICAgICAgICAgICAgICAgICAgICAgICAgICAgICAgICAgICAg ICAgICAgICAgICAgICAgICAgICAgICAgICANCiAgICAgICAgICAgICAgICAgICAgICAgICAgICAgICAg ICAgICAgICAgICAgICAgICAgICAgICAgICAgICAgIC AgICAgICAgICAgICAgICAgICAgICAgICAgICAgICAgICAgICANCiAgICAgICAgICAgICAgICAgICAgIC AgICAgICAgICAgICAgICAgICAgICAgICAgICAgICAgICAgICAgICAgICAgICAgICAgICAgICAgICAgIC AgICAgICAgICAgICAgICAgICANCjw/gOCwA4drxDHj tqN9M4cwMn4OJf8UQW0gk4ZvOMQtMVdkvqPoKyeMRkFtWEVfPedEQtu1CBykSI7UqSEsI1TvN6LiDVke VP2XSQAwMYVzuBYaZDVoKICgJoC0LCHcNIdjPI6IkZZzHWkqJLOrHGOcSK7ZGFVdM553qmVsXQ3AWg9C IeLkPQ0xlm5SXSupFUNbQyiHQmg7NFpwKD7AkDJmlW QlSOHbOECCLaYjV9syi0IgSlBqSDSCAUrrKT9Hm2XysJJdWPz+Uz0KYE4vu2JpDKgmAEGuZQ7tjq5WMK eLCrRjH5WohCydNFBed5ylTBLzEA8saPXvDVO9IP8aB9VkLaJaFLSzATXWVvLqqZCjRH1yNj2pBOOlWY XsTlKdXWDOSX4YFWLtGPPtjPPlYCQtXVMIXB7IQLqm BLH0NKNisaLtlVNfQAqiTF0VPEDnduKeDKzqXFUQYIq+Sx7UUL7co5BwUSgzEGDrYR6gff7POHoBSuPw H6E6zNQvW6O2QWisRq4CGZKnBIKvWAenVOCDZBeeUF8CQE4waoA4LC4AlTSdETHhSZJwmVYeZZq8Y48o bWHtVUimLT5BVED+Faby+Ol1WDEDkQOLfZLRlCyQvTO UUAtCqH9PbC4RDi2KoV8QlQR40wMzijeDnNGxlXG7RZP4bFABxLCGZHB8XdKBeoW4jrdVdRGHfKKBLAq WvM52szMQpSRDzQIE6KHNiJa5EYBNfS2DuccYrhHrczqEzVUUoNPOBVQ3HOQsqtqDubTZobDtzST72mR hlFA2WTe0RMrHxUH5rfe1BbQEuFd4UCRSnKj5HJRUv UNYxMWCiNIW6ETOcHtAdNCdjCKDkVCHhVHB8AAUyRELiPZ7FWsPyPTWkVCbiFJrsEJUrYVSyyw7CAWRz YWUmMDphIqPlHTChQTOqNEgrUEJzNDUrURL3SFFeVTSgXF0AVmVcAVCaDTQ7IzPnBCVgZMRipe6GCHQr XGPtLtGbAMBbBUEnLAXjLFihOZRiYTPeQUa3KQEmJA RnCK5BByUgWNQxSTMrYOJlWZSfOQUbmj0XFNNfLRXwRpJ4TCPgRJHwJMXeVFnfWTEgTNX9UKFhDSDgSF FyYV1NUlCcFDXoRXB3ViXyDCHhATVoqx6MWQOaMILgEMxoFXQyYAPoBQFdMPfqRKYjLVK5VUC6YPGcGW HsYJ7JAzRgGCPqRSM8AYLlAUHhLAHwip8XTDDvRWBy UuI0DYAiOCWsPKYkEOnaQBQjVMA7NAKtKVLcLRGaNN3BQdUoXSUlBKxzGiojDVOpMQHlwi4PWYXtGVCm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 ID Date Data Source [id number] 10/30/2019 08:19:00 AM EDT [facility] ([facility]) Name Value Range Interpretation Code Description Data Amanda rce(s) Supporting Document(s) Lymphocytes/100 leukocytes in Blood by Automated count 26.0 24. 0-44.0 [facility] ([facility]) ID Date Data Source [id number] 10/30/2019 08:19:00 AM EDT [facility] ([facility]) Name Value Range Interpretation Code Description Data Amanda rce(s) Supporting Document(s) Neutrophils [#/volume] in Blood by Automated count 62.1 36.0-66 .0 [facility] ([facility]) ID Date Data Source [id number] 10/30/2019 08:19:00 AM EDT [facility] ([facility]) Name Value Range Interpretation Code Description Data Amanda rce(s) Supporting Document(s) Platelets [#/volume] in Blood by Automated count 177 150-450 [facility] ([facility]) ID Date Data Source [id number] 10/30/2019 08:19:00 AM EDT [facility] ([facility]) Name Value Range Interpretation Code Description Data Amanda rce(s) Supporting Document(s) Erythrocyte distribution width [Ratio] by Automated count 13.1 11.5-14.5 [facility] ([facility]) ID Date Data Source [id number] 10/30/2019 08:19:00 AM EDT [facility] ([facility]) Name Value Range Interpretation Code Description Data Amanda rce(s) Supporting Document(s) Erythrocyte mean corpuscular hemoglobin concentration [Mass/volume] by Automated count 31.3 32.0-36.5 [facility] ([facility]) ID Date Data Source [id number] 10/30/2019 08:19:00 AM EDT [facility] ([facility]) Name Value Range Interpretation Code Description Data Amanda rce(s) Supporting Document(s) Erythrocyte mean corpuscular hemoglobin [Entitic mass] by Au tomated count 29.5 27.0-33.0 [facility] ([facility]) ID Date Data Source [id number] 10/30/2019 08:19:00 AM EDT [facility] ([facility]) Name Value Range Interpretation Code Description Data Amanda rce(s) Supporting Document(s) Erythrocyte mean corpuscular volume [Entitic volume] by Auto mated count 94.4 80.0-96.0 [facility] ([facility]) ID Date Data Source [id number] 10/30/2019 08:19:00 AM EDT [facility] ([facility]) Name Value Range Interpretation Code Description Data Amanda rce(s) Supporting Document(s) Hematocrit [Volume Fraction] of Blood by Automated count 45.1 3 6.0-47.0 [facility] ([facility]) ID Date Data Source [id number] 10/10/2019 10:54:26 AM EDT [facility] Courtney LisyDOB: 1955Provider: Stew Reynolds: 10/08/2019 PlanAssessment:Left leg pain.Courtney [...] rce(s) Supporting Document(s) ID Date Data Source [id number] 10/03/2019 03:45:00 PM EDT [facility] PATIENT MR#: [id number] NAME: Courtney Mora DATE OF : 1955REFERRING [...] from osteoarthritis.Read by: RAVINDER MARIONTranscribed by: RAVINDER MAIRONTranscribed Date: 10/03/2019 3:45:10 PMEl ectronically signed by: RAVINDER MARIONDate signed: 10/03/2019 3:45:10 PM Name Value Range Interpretation Code Description Data Amanda rce(s) Supporting Document(s) ID Date Data Source [id number] 09/30/2019 05:50:18 PM EDT [facility] Name Value Range Interpretation Code Description Data Amanda rce(s) Supporting Document(s) &PDF [facility] WUEWVe8oIaAUZiEh46/CVAdnUJTqv8SlGAgvXRo5DCtwDGSoJ3PtyAlmSC5ESC2GL7ZDIOOVJgPGTOSi vci [file] ICAgICAgICAgICAgICAgICAgICAgICAgICAgICAgICAgICAgICAgICAgICAgICAgICAgICAgICAgICAg ICAgICAgICAgICAgICAgICAgICAgICAgICAgICAgIC NsAUFdFENoTH1SREDcZYIyMXOnKZFwCGJjZVJrTOJqTEXcDGIkAONsRLReMLOlREIaYZOaQXTxRWBbGO HoSPElITCaPHSsXIQhTIEkNVNkNWZeTSIrCXKpUNPrJFGwJFZnJBIlDGLuQZEiZPJoUJ8YPYJeQPPhLZ AgICAgICAgICAgICAgICAgICAgICAgICAgICAgICAg ICAgICAgICAgICAgICAgICAgICAgICAgICAgICAgICAgICAgICAgICAgICAgICAgICAgICAgICAgICAg JD6JRNInWWTcWURyYNMvUVXxUJGuMDAeJDOhKFNyVUCoJEEbQEUiIFFrUACxYFHuVMBqZTSiEPAuJAEk ICAgICAgICAgICAgICAgICAgICAgICAgICAgICAgIC OpJDVvDWVeWKPtDD0CFWDhBUXgDAJmXKVnGOAmOLBoHNGcGBUtWOUpPBUlZHFcHRTmGQMwPYYgGFDvVL KtJDDgTJUsCMVlTPXbKFOoBOEhNNEgWDKmUAAuXFZgVYAsJAYiDBRsQWQpXAHbKLRpUMDjFO6KRZYhUN AgICAgICAgICAgICAgICAgICAgICAgICAgICAgICAg ICAgICAgICAgICAgICAgICAgICAgICAgICAgICAgICAgICAgICAgICAgICAgICAgICAgICAgICAgICAg JIStLT7PYQGrWNYmGRWpPMFxIMPuNLQbOWJsCPRuFANmEAQgAZWvLXZrUWTyTBHhNIIxJMYbHWOiRGQs ICAgICAgICAgICAgICAgICAgICAgICAgICAgICAgIC LcYMZtOYUbUQAvFPCrTP0NBROzRFXrHMKdVLFwWJCxEBXxNNGtBPMlTIMwPFZyYRRvCANsWKRzGBFoUY JeCNMgQWWuECVrGJLiWHEkGGQlQYEsPBVrBMVgAOXyQATrWRYwRDWpQQNpFGCsSFBpCAQbHNLtGW0OZQ AgICAgICAgICAgICAgICAgICAgICAgICAgICAgICAg ICAgICAgICAgICAgICAgICAgICAgICAgICAgICAgICAgICAgICAgICAgICAgICAgICAgICAgICAgICAg RZVnGACxAC2KVTIlKNJnVEReNUNbOHGaWIZtFRBzORBzGJRoOWDrJCRvDYUgTGNuCZOqMLLzJEXrIDQy ICAgICAgICAgICAgICAgICAgICAgICAgICAgICAgIC FgZHNaXWWgOOUjSGNiRAZlQT4KIE42vFRpx9M0SZMaMA5flcs/Eg7BHRfceuHvrHCuJR8WRwVtMP3qof 0QLmZiFP6rlc2YYLiRJsRfK0M6wLWqTNMvZSWBBlVlJ78hMUhzXp33IBlcTVCaLpOoDAd0Zs2LIpGnS7 atKRJpLkW6JPJkZtPfLDycKU3Yt9XfgDEcKMs+Pg0K KN1mg7IdTFnaDfFnQC2yvt7SMWsGCpNdH1O7dWQmU4M3ZBbkLy1NRMUkLPQbZGYpVXKGESkjZP2AIL8t hnK1LZ0LlKExRWFuBNMpySTcVWd9X50wcOWeMPmfXA5SGSX+Faby+Gr8AMNNdHNJzXFRtSoBzRROZCwNx V06kxFRbCPTtZMO9LIDtCe9VMVXiU3UoshYkcCfjkz XwZFPzSWFNSY0IUFfakiYydIDvuYtgKV04kCdtDX4JVr6EIbNaGB6ysk8HqFXyHg9TAHOuAt7OGPMxCK PwYXFwPVO6CCSnUuCkAQxgHZTkNXLoXUS6OUArNSHgTC3IWzYqWTTeBQK7UhSbCSJbOQUhhu0DKMBvIZ FnXFD7GgMxHHNvOCVcOKwhOKHnASZeYTayGHIkMCAn MQ1SWhSsVINoYJDiVTGoVOLxDIHotz3IKULlEGYwCzAbDvMgXYPmMIKwKEqgGRKhHSBmISf8QVCjXPGv AR3KDrIuNHDgZDYoZpIvFLKbLIWsjg1CRDIjUBToApD7SvZnKVQvFSJwEGfmWDJvXES0RYGaMLGdDOIa VL7ORaNtHCJnSIN7NVFeATDjOMXter0EAQCpXYClWL a5HZBlSFCjDSHtNUqpWXStDFIyXCnyUGCcWQTmHM5VRsOnJOGaJES3ZMrsJSGgNAMjtk1JEOXtYCZdEB XnRfPjJNFaQKCmCAyvNHOrMVQ1QESxHAJrJNOgCO6ADzDjZGsuIRNYHyr4BVnyG3m0QFNdPz9YX6Joi8 HhABOaVMQQIOpbQG5xaiOdLINwBq1KV7yKOuv5PARx PpDcYGF8Ezg3CuIfBuYpUcdeNJnfVXZeEYUfKq3jPKPyJCE3ImY7SNJ6IUf8HvOhGgP8ZUJ7AQIjQdZ3 ZRK7CwNmQM1NLi8RWcX7KFR0pBXrVt8EPGR0FGrBZvXkGM6EKUj= ID Date Data Source [id number] 07/25/2019 01:17:30 PM EDT [facility] Courtney TidwellB: 1955Provider: Stew [...] knees; RAF = N; Verified Transmission to [facility]; Last Updated By: Yovani Gaona; 07/18/2019 [...] rce(s) Supporting Document(s) ID Date Data Source [id number] 07/16/2019 08:00:00 AM EST [facility] ([facility]) Name Value Range Interpretation Code Description Data Amanda rce(s) Supporting Document(s) Ketones [Presence] in Urine by Test strip Laboratory test result [facility] ([facility]) ID Date Data Source [id number] 07/16/2019 08:00:00 AM EST [facility] ([facility]) Name Value Range Interpretation Code Description Data Amanda rce(s) Supporting Document(s) Urobilinogen [Presence] in Urine by Test strip Laboratory test result [facility] ([facility]) ID Date Data Source [id number] 07/16/2019 08:00:00 AM EST [facility] ([facility]) Name Value Range Interpretation Code Description Data Amanda rce(s) Supporting Document(s) Glucose [Mass/volume] in Urine by Test strip Laboratory test result [facility] ([facility]) ID Date Data Source [id number] 07/16/2019 08:00:00 AM EST [facility] ([facility]) Name Value Range Interpretation Code Description Data Amanda rce(s) Supporting Document(s) Bilirubin.total [Presence] in Urine by Test strip Laboratory test res ult [facility] ([facility] ) ID Date Data Source [id number] 07/16/2019 08:00:00 AM EST [facility] ([facility]) Name Value Range Interpretation Code Description Data Amanda rce(s) Supporting Document(s) Nitrite [Presence] in Urine by Test strip Laboratory test result [facility] ([facility] ) ID Date Data Source [id number] 07/16/2019 08:00:00 AM EST [facility] ([facility]) Name Value Range Interpretation Code Description Data Amanda rce(s) Supporting Document(s) Leukocyte esterase [Presence] in Urine by Test strip Laboratory kerry t result [facility] ([facility]) ID Date Data Source [id number] 07/16/2019 08:00:00 AM EST [facility] ([facility]) Name Value Range Interpretation Code Description Data Amanda rce(s) Supporting Document(s) Protein [Mass/volume] in Urine by Test strip Laboratory test result [facility] ([facility]) ID Date Data Source [id number] 07/16/2019 08:00:00 AM EST [facility] ([facility]) Name Value Range Interpretation Code Description Data Amanda rce(s) Supporting Document(s) Specific gravity of Urine by Test strip 1.020 1.002-1.035 [facility] ([facility]) ID Date Data Source [id number] 07/16/2019 08:00:00 AM EST [facility] ([facility]) Name Value Range Interpretation Code Description Data Amanda rce(s) Supporting Document(s) pH of Urine by Test strip 6.0 5.0-7.0 [facility] ([facility]) ID Date Data Source [id number] 07/16/2019 08:00:00 AM EST [facility] ([facility]) Name Value Range Interpretation Code Description Data Amanda rce(s) Supporting Document(s) Color of Urine Laboratory test result [facility] ([facility]) ID Date Data Source [id number] 07/16/2019 08:00:00 AM EST [facility] ([facility]) Name Value Range Interpretation Code Description Data Amanda rce(s) Supporting Document(s) Appearance of Urine Laboratory test result [facility] ([facility]) ID Date Data Source [id number] 07/16/2019 08:00:00 AM EST [facility] ([facility]) Name Value Range Interpretation Code Description Data Amanda rce(s) Supporting Document(s) Hemoglobin [Presence] in Urine by Test strip Laboratory test result [facility] ([facility]) ID Date Data Source [id number] 07/16/2019 08:00:00 AM EST [facility] ([facility]) Name Value Range Interpretation Code Description Data Amanda rce(s) Supporting Document(s) Leukocytes [#/area] in Urine sediment by Microscopy [facility] power field Laboratory test result 0-3 [facility] ([facility]) ID Date Data Source [id number] 07/16/2019 08:00:00 AM EST [facility] ([facility]) Name Value Range Interpretation Code Description Data Amanda rce(s) Supporting Document(s) Erythrocytes [#/area] in Urine sediment by Microscopy high power field Laboratory test result 0-3 [facility] ([facility]) ID Date Data Source [id number] 07/16/2019 08:00:00 AM EST [facility] ([facility]) Name Value Range Interpretation Code Description Data Amanda rce(s) Supporting Document(s) Epithelial cells.squamous [Presence] in Urine sediment by Light microscopy Laboratory test result [facility] ([facility]) ID Date Data Source [id number] 07/16/2019 08:00:00 AM EST [facility] ([facility]) Name Value Range Interpretation Code Description Data Amanda rce(s) Supporting Document(s) Calcium oxalate crystals [Presence] in Urine sediment by Light microscopy Laboratory test result [facility] ([facility]) ID Date Data Source [id number] 07/16/2019 08:00:00 AM EST [facility] ([facility]) Name Value Range Interpretation Code Description Data Amanda rce(s) Supporting Document(s) Bacteria [Presence] in Urine sediment by Light microsc opy Laboratory test result [facility] ([facility]) ID Date Data Source [id number] 07/16/2019 08:00:00 AM EST [facility] ([facility]) Name Value Range Interpretation Code Description Data Amanda rce(s) Supporting Document(s) Hyaline casts [Presence] in Urine sediment by Light mi croscopy Laboratory test result 0-1 [facility] ([facility]) ID Date Data Source [id number] 07/16/2019 08:00:00 AM EST [facility] ([facility]) Name Value Range Interpretation Code Description Data Amanda rce(s) Supporting Document(s) Mucus [Presence] in Urine sediment by Light microscopy Laborator y test result [facility] ([facility]) ID Date Data Source [id number] 07/16/2019 08:00:00 AM EST [facility] ([facility]) Name Value Range Interpretation Code Description Data Amanda rce(s) Supporting Document(s) Urine Sediment Examination Laboratory test result [facility] ([facility]) ID Date Data Source [id number] 07/09/2019 06:28:00 PM EST [facility] ([facility]) Name Value Range Interpretation Code Description Data Amanda rce(s) Supporting Document(s) Urine Appearance Laboratory test result [facility] ([facility] ) Urine Color Laboratory test result MED[facility] T ([facility] ) pH of Urine 5.0 5.0-9.0 [facility] ([facility]) Urine Specific [place] 1.050 1.002-1.035 M [facility] ([facility] ) Urine Protein Laboratory test result [facility] ([facility] ) Urine Glucose (Ua) Laboratory test result [facility] ([facility] ) Urine Ketones Laboratory test result [facility] ([facility] ) Urine Bilirubin Laboratory test result [facility] ([facility] ) Urine Urobilinogen 0.2 0.0-2.0 [facility] ([facility] Urine Leukocyte Esterase [...] [facility]) ID Date Data Source [id number] 07/09/2019 03:15:00 PM EST [facility] ([facility]) Name Value Range Interpretation Code Description Data Amanda rce(s) Supporting Document(s) Hematocrit [Volume Fraction] of Blood 46.0 38.0-51.0 [facility] ([facility]) ID Date Data Source [id number] 07/09/2019 03:15:00 PM EST [facility] ([facility]) Name Value Range Interpretation Code Description Data Amanda rce(s) Supporting Document(s) Glucose [Mass/volume] in Blood 97 70-105 [facility] ([facility]) ID Date Data Source [id number] 07/09/2019 03:15:00 PM EST [facility] ([facility]) Name Value Range Interpretation Code Description Data Amanda rce(s) Supporting Document(s) Sodium [Moles/volume] in Blood 138 136-145 [facility] ([facility]) ID Date Data Source [id number] 07/09/2019 03:15:00 PM EST [facility] ([facility]) Name Value Range Interpretation Code Description Data Amanda rce(s) Supporting Document(s) Potassium [Moles/volume] in Blood 4.7 3.5-5.1 [facility] ([facility]) ID Date Data Source [id number] 07/09/2019 03:15:00 PM EST [facility] ([facility]) Name Value Range Interpretation Code Description Data Amanda rce(s) Supporting Document(s) Calcium.ionized [Moles/volume] in Blood 4.3 4.5-5.3 [facility] ([facility]) ID Date Data Source [id number] 07/09/2019 03:15:00 PM EST [facility] ([facility]) Name Value Range Interpretation Code Description Data Amanda rce(s) Supporting Document(s) Chloride [Moles/volume] in Blood 106 98-109 [facility] ([facility]) ID Date Data Source [id number] 07/09/2019 03:15:00 PM EST [facility] ([facility]) Name Value Range Interpretation Code Description Data Amanda rce(s) Supporting Document(s) Carbon dioxide, total [Moles/volume] in Blood 27.0 23.0-27.0 [facility] ([facility]) ID Date Data Source [id number] 07/09/2019 03:15:00 PM EST [facility] ([facility]) Name Value Range Interpretation Code Description Data Amanda rce(s) Supporting Document(s) Urea nitrogen [Mass/volume] in Blood 26 8-26 [facility] ([facility]) ID Date Data Source [id number] 07/09/2019 03:15:00 PM EST [facility] ([facility]) Name Value Range Interpretation Code Description Data Amanda rce(s) Supporting Document(s) Creatinine [Mass/volume] in Blood 0.8 0.6-1.3 [facility] ([facility]) ID Date Data Source [id number] 07/09/2019 03:10:00 PM EST [facility] ([facility]) Name Value Range Interpretation Code Description Data Amanda rce(s) Supporting Document(s) Erythrocyte sedimentation rate by Westergren method 3 0-30 [facility] ([facility]) ID Date Data Source [id number] 07/09/2019 03:10:00 PM EST [facility] ([facility]) Name Value Range Interpretation Code Description Data Amanda rce(s) Supporting Document(s) Prothrombin time (PT) 13.0 11.8-14.0 [facility] ( [facility]) ID Date Data Source [id number] 07/09/2019 03:10:00 PM EST [facility] ([facility]) Name Value Range Interpretation Code Description Data Amanda rce(s) Supporting Document(s) INR in Platelet poor plasma by Coagulation assay 1.01 [facility] ([facility]) ID Date Data Source [id number] 07/09/2019 03:10:00 PM EST [facility] ([facility]) Name Value Range Interpretation Code Description Data Amanda rce(s) Supporting Document(s) aPTT in Blood by Coagulation assay 26.4 25.0-38.4 [facility] ([facility]) ID Date Data Source [id number] 07/09/2019 03:10:00 PM EST [facility] ([facility]) Name Value Range Interpretation Code Description Data Amanda rce(s) Supporting Document(s) Aspartate aminotransferase [Enzymatic activity/volume] in Se rum or Plasma 15 7-37 [facility] ([facility]) ID Date Data Source [id number] 07/09/2019 03:10:00 PM EST [facility] ([facility]) Name Value Range Interpretation Code Description Data Amanda rce(s) Supporting Document(s) Alanine aminotransferase [Enzymatic activity/volume] in Seru m or Plasma 19 12-78 [facility] ([facility]) ID Date Data Source [id number] 07/09/2019 03:10:00 PM EST [facility] ([facility]) Name Value Range Interpretation Code Description Data Amanda rce(s) Supporting Document(s) Creatine kinase [Enzymatic activity/volume] in Serum or Plasma 90 26-192 [facility] ([facility]) ID Date Data Source [id number] 07/09/2019 03:10:00 PM EST [facility] ([facility]) Name Value Range Interpretation Code Description Data Amanda rce(s) Supporting Document(s) Creatine kinase.MB [Mass/volume] in Serum or Plasma 1.9 [facility] ([facility]) ID Date Data Source [id number] 07/09/2019 03:10:00 PM EST [facility] ([facility]) Name Value Range Interpretation Code Description Data Amanda rce(s) Supporting Document(s) Creatine kinase.MB/Creatine kinase.total [Pure catalytic fraction] in Serum or Plasma by calculation 2.11 [facility] ([facility]) ID Date Data Source [id number] 07/09/2019 03:10:00 PM EST [facility] ([facility]) Name Value Range Interpretation Code Description Data Amanda rce(s) Supporting Document(s) Alkaline phosphatase [Enzymatic activity/volume] in Serum or Marlene sma 136 45-117 [facility] ([facility]) ID Date Data Source [id number] 07/09/2019 03:10:00 PM EST [facility] ([facility]) Name Value Range Interpretation Code Description Data Amanda rce(s) Supporting Document(s) Bilirubin.total [Mass/volume] in Serum or Plasma 0.3 0.2-1.0 [facility] ([facility]) ID Date Data Source [id number] 07/09/2019 03:10:00 PM EST [facility] ([facility]) Name Value Range Interpretation Code Description Data Amanda rce(s) Supporting Document(s) Bilirubin.direct [Mass/volume] in Serum or Plasma 0.1 0.0-0.2 [facility] ([facility]) ID Date Data Source [id number] 07/09/2019 03:10:00 PM EST [facility] ([facility]) Name Value Range Interpretation Code Description Data Amanda rce(s) Supporting Document(s) Protein [Mass/volume] in Serum or Plasma 7.5 6.4-8.2 [facility] ([facility]) ID Date Data Source [id number] 07/09/2019 03:10:00 PM EST [facility] ([facility]) Name Value Range Interpretation Code Description Data Amanda rce(s) Supporting Document(s) Albumin [Mass/volume] in Serum or Plasma 3.9 3.2-5.2 [facility] ([facility]) ID Date Data Source [id number] 07/09/2019 03:10:00 PM EST [facility] ([facility]) Name Value Range Interpretation Code Description Data Amanda rce(s) Supporting Document(s) Albumin/Globulin [Mass Ratio] in Serum or Plasma 1.08 1.00-1.93 [facility] ([facility]) ID Date Data Source [id number] 07/09/2019 03:10:00 PM EST [facility] ([facility]) Name Value Range Interpretation Code Description Data Amanda rce(s) Supporting Document(s) Troponin I.cardiac [Mass/volume] in Serum or Plasma Laboratory test result [facility] ([facility]) ID Date Data Source [id number] 07/09/2019 03:10:00 PM EST [facility] ([facility]) Name Value Range Interpretation Code Description Data Amanda rce(s) Supporting Document(s) Natriuretic peptide.B prohormone N-Terminal [Mass/volu me] in Serum or Plasma 242 [facility] ([facility]) ID Date Data Source [id number] 07/09/2019 03:10:00 PM EST [facility] ([facility]) Name Value Range Interpretation Code Description Data Amanda rce(s) Supporting Document(s) C reactive protein [Mass/volume] in Serum or Plasma by High sensitivity method 0.99 0.00-0.30 [facility] ([facility]) ID Date Data Source VITAMIN [id number] 05/14/2019 12:00:00 AM EST eCW1 ([facility]) Name Value Range Interpretation Code Description Data Amanda rce(s) Supporting Document(s) 31.4 30.0-100.0 TOTAL 25(OH) VITAMIN D eC W1 (Pending Sale To [facility]) ID Date Data Source VITAMIN B12 LEVEL 05/14/2019 12:00:00 AM EST eCW1 ([facility]) Name Value Range Interpretation Code Description Data Amanda rce(s) Supporting Document(s) [phone] VITAMIN B12 LEVEL eCW1 ([facility]) ID Date Data Source RBC FOLATE PROFILE 05/14/2019 12:00:00 AM EST eCW1 ([facility]) Name Value Range Interpretation Code Description Data Amanda rce(s) Supporting Document(s) 46.6 36.0-47.0 HEMATOCRIT eCW1 ([facility]) ID Date Data Source TOTAL IRON BINDING CAPACIT 05/14/2019 12:00:00 AM EST eCW1 ( [facility]ending Sale To [facility]) Name Value Range Interpretation Code Description Data Amanda rce(s) Supporting Document(s) 63 50-170 IRON (FE) eCW1 ([facility]) 19.2 13.2-45.0 PERCENT SATURATION eCW1 ([facility]) 328 250-450 TOTAL IRON BINDING CAPACI TY eCW1 (Pending Sale To [facility]) ID Date Data Source [id number] 05/14/2019 12:00:00 AM EST eCW1 ([facility]) Name Value Range Interpretation Code Description Data Amanda rce(s) Supporting Document(s) Hemoglobin A1c/Hemoglobin.total in Blood 6.0 HEMOGLOBIN A1c eCW1 (Pending Sale To [facility]) ID Date Data Source PHOSPHOROUS LEVEL 05/14/2019 12:00:00 AM EST eCW1 ([facility]) Name Value Range Interpretation Code Description Data Amanda rce(s) Supporting Document(s) 2.8 2.5-4.9 PHOSPHORUS LEVEL eCW1 ([facility]) ID Date Data Source MAGNESIUM LEVEL 05/14/2019 12:00:00 AM EST eCW1 ([facility]) Name Value Range Interpretation Code Description Data Amanda rce(s) Supporting Document(s) 2.4 1.8-2.4 MAGNESIUM LEVEL eCW1 ([facility]) ID Date Data Source FREE T4 & TSH PANEL 05/14/2019 12:00:00 AM EST eCW1 ([facility]) Name Value Range Interpretation Code Description Data Amanda rce(s) Supporting Document(s) 1.09 0.76-1.46 FREE T4 eCW1 ([facility]) 0.842 0.358-3.740 THYROID STIMULATING HORM ONE eCW1 (Pending [facility] To [facility]) ID Date Data Source FERRITIN 05/14/2019 12:00:00 AM EST eCW1 ([facility]) Name Value Range Interpretation Code Description Data Amanda rce(s) Supporting Document(s) 41 [phone] FERRITIN eCW1 ([facility]) ID Date Data Source Comprehensive Metabolic Profile (CMP) 05/14/2019 12:00:00 AM EST eCW1 (Pending Sale To [facility]) Name Value Range Interpretation Code Description Data Amanda rce(s) Supporting Document(s) 14 7-18 BLOOD UREA NITROGEN eCW1 ([facility]) > 60.0 >45 GLOMERULAR FILTRATION RATE eCW 1 ([facility]ending [facility]) 104 70-100 GLUCOSE, FASTING eCW1 ([facility]) 0.94 0.55-1.30 CREATININE FOR GFR eCW1 ([facility]) 31 21-32 CARBON DIOXIDE LEVEL eCW1 ([facility]) 4.6 3.5-5.1 POTASSIUM SERUM eCW1 (Critical [facility] hospital) 141 136-145 SODIUM LEVEL eCW1 ([facility] hospital) 105 98-107 CHLORIDE LEVEL eCW1 ([facility]ending Sale To [facility]) 9.2 8.8-10.2 CALCIUM LEVEL eCW1 (Pending Sale To [facility]) 27 12-78 ALT/SGPT eCW1 ([facility]) 136 45-117 ALKALINE PHOSPHATASE eCW1 ([facility]) 0.5 0.2-1.0 BILIRUBIN,TOTAL eCW1 ([facility]) 17 7-37 AST/SGOT eCW1 ([facility]) 7.1 6.4-8.2 TOTAL PROTEIN eCW1 ([facility]ending [facility] To [facility]) 3.5 3.2-5.2 ALBUMIN eCW1 ([facility]) 0.97 1.00-1.93 ALBUMIN/GLOBULIN RATIO eCW1 ([facility]) ID Date Data Source CBC with Differential 05/14/2019 12:00:00 AM EST eCW1 ([facility]) Name Value Range Interpretation Code Description Data Amanda rce(s) Supporting Document(s) 7.4 4.0-10.0 WHITE BLOOD COUNT eCW1 ([facility]) 4.86 4.00-5.40 RED BLOOD COUNT eCW1 ([facility] access hospital) 46.6 36.0-47.0 HEMATOCRIT eCW1 ([facility]) 14.1 12.0-15.5 HEMOGLOBIN eCW1 ([facility]) 13.2 11.5-14.5 RED CELL DISTRIBUTION WID TH eCW1 ([facility]ending [facility]) 95.9 80.0-96.0 MEAN CORPUSCULAR VOLUME e CW1 ([facility]ending [facility] To [facility]) 30.3 32.0-36.5 MEAN CORPUSCULAR HGB CONC eCW1 (Pending [facility] To [facility]) 29.0 27.0-33.0 MEAN CORPUSCULAR HEMOGLOB IN eCW1 (Pending [facility] To [facility]) 3.2 0.0-3.0 EOS % eCW1 ([facility]) 68.9 36.0-66.0 NEUTROPHILS % eCW1 ([facility]ending Sale To [facility]) 188 150-450 PLATELET COUNT, AUTOMATED eCW1 ([facility]ending [facility] To [facility]) 17.2 24.0-44.0 LYMPH % eCW1 ([facility]) 9.9 0.0-5.0 MONO % eCW1 ([facility]) 1.3 1.5-5.0 LYMPH # eCW1 ([facility]) 0.7 0.0-0.8 MONO # eCW1 ([facility]) 5.1 1.5-8.5 NEUTROPHILS # eCW1 ([facility]ending [facility]) 0.4 0.0-1.0 BASO % eCW1 ([facility]) 0.2 0.0-0.5 EOS # eCW1 ([facility]) 0.0 0.0-0.2 BASO # eCW1 ([facility]) Procedure Social History Code Duration Value Status Description Data Source(s ) Alcohol intake 06/26/2020 12:00:00 AM EST No completed [facility] Smoking 06/26/2020 12:00:00 AM EST Never smoker completed Never s [facility] Smoking 06/11/2020 12:00:00 AM EST Never Smoker completed Never S moker eCW1 ([facility] To [facility]) Smoking 06/11/2020 12:00:00 AM EST Never Smoker completed Never S moker eCW1 ([facility]ending [facility] To [facility]) Smoking 06/11/2020 12:00:00 AM EST Never Smoker completed Never S moker eCW1 ([facility] To [facility]) Smoking 06/11/2020 12:00:00 AM EST Never Smoker completed Never S moker eCW1 ([facility]ending [facility] To [facility]) Smoking 06/11/2020 12:00:00 AM EST Never Smoker completed Never S moker eCW1 ([facility]) Smoking 05/27/2020 12:00:00 AM EST Never Smoker completed Never S moker eCW1 ([facility]) Smoking 05/27/2020 12:00:00 AM EST Never Smoker completed Never S moker eCW1 ([facility]ending [facility] To [facility]) Smoking 05/27/2020 12:00:00 AM EST Never Smoker completed Never S moker eCW1 ([facility]ending [facility] To [facility]) Smoking 05/27/2020 12:00:00 AM EST Never Smoker completed Never S moker eCW1 ([facility]ending [facility] To [facility]) Smoking 05/26/2020 12:00:00 AM EST Never Smoker completed Never S moker eCW1 ([facility] To [facility]) Smoking 05/26/2020 12:00:00 AM EST Never Smoker completed Never S moker eCW1 ([facility]ending [facility] To [facility]) Smoking 05/22/2020 12:00:00 AM EST Never Smoker completed Never S moker eCW1 ([facility]ending [facility] To [facility]) Smoking 05/21/2020 12:00:00 AM EST Never Smoker completed Never S moker eCW1 ([facility]ending [facility] To [facility]) Smoking 04/08/2020 12:00:00 AM EST Never Smoker completed Never S moker eCW1 ([facility]ending [facility] To [facility]) Smoking 04/08/2020 12:00:00 AM EST Never Smoker completed Never S moker eCW1 ([facility] To [facility]) Smoking 04/08/2020 12:00:00 AM EST Never Smoker completed Never S moker eCW1 ([facility]ending [facility] To [facility]) Smoking 04/08/2020 12:00:00 AM EST Never Smoker completed Never S moker eCW1 ([facility]ending [facility] To [facility]) Smoking 04/08/2020 12:00:00 AM EST Never Smoker completed Never S moker eCW1 ([facility]ending [facility] To [facility]) Smoking 04/08/2020 12:00:00 AM EST Never Smoker completed Never S moker eCW1 ([facility]ending [facility] To [facility]) Smoking 04/08/2020 12:00:00 AM EST Never Smoker completed Never S moker eCW1 ([facility]ending [facility] To [facility]) Alcohol intake 03/31/2020 12:00:00 AM EST Current non-d woody of alcohol (finding) completed Current non-drinker of alcohol (finding) [facility] Tobacco use and exposure 03/31/2020 12:00:00 AM EST Never used co mpleted Never used [facility] Smoking 03/31/2020 12:00:00 AM EST Never smoker completed Never s [facility] Smoking 03/23/2020 12:00:00 AM EST Never Smoker completed Never S moker eCW1 ([facility] To [facility]) Smoking 03/23/2020 12:00:00 AM EST Never Smoker completed Never S moker eCW1 ([facility]ending [facility] To [facility]) Smoking 03/23/2020 12:00:00 AM EST Never Smoker completed Never S moker eCW1 ([facility] To [facility]) Smoking 03/20/2020 12:00:00 AM EST Never Smoker completed Never S moker eCW1 ([facility]ending [facility] To [facility]) Smoking 03/09/2020 12:00:00 AM EDT Never Smoker completed Never S moker eCW1 ([facility] To [facility]) Smoking 03/09/2020 12:00:00 AM EDT Never Smoker completed Never S moker eCW1 ([facility]ending [facility] To [facility]) Smoking 02/28/2020 12:00:00 AM EDT Never Smoker completed Never S moker eCW1 ([facility]) Alcohol intake 2019 12:00:00 AM EDT Current non-d woody of alcohol (finding) completed Current non-drinker of alcohol (finding) [facility] Smoking 2019 12:00:00 AM EDT Never smoker completed Never s [facility] Smoking 11/08/2019 12:00:00 AM EDT Never Smoker completed Never S moker eCW1 ([facility]ending [facility] To [facility]) Smoking 11/08/2019 12:00:00 AM EDT Never Smoker completed Never S moker eCW1 ([facility]ending [facility] To [facility]) Smoking 11/08/2019 12:00:00 AM EDT Never Smoker completed Never S moker eCW1 ([facility]ending [facility] To [facility]) Smoking 11/08/2019 12:00:00 AM EDT Never Smoker completed Never S moker eCW1 ([facility]) Smoking 11/08/2019 12:00:00 AM EDT Never Smoker completed Never S moker eCW1 ([facility]ending [facility] To [facility]) Smoking 10/08/2019 12:00:00 AM EDT Never Smoker completed Never S moker eCW1 ([facility]) Smoking 10/08/2019 12:00:00 AM EDT Never Smoker completed Never S moker eCW1 (Pending [facility] To [facility]) Vital Signs ID Date Data Source UNK Name Value Range Interpretation Code Description Data Source(s) Oxygen saturation in Arterial blood by Pulse oximetry 96 % 96 % [facility] Body mass index (BMI) [Ratio] 69.35 kg/m2 69.35 kg/m2 [facility] Body weight 183.253 kg 183.253 kg [facility] Body height 162.6 cm 162.6 cm [facility] Respiratory rate 19 /min 19 /min [facility] Heart rate 70 /min 70 /min [facility] Diastolic blood pressure 60 mm[Hg] 60 mm[Hg] [facility] Systolic blood pressure 122 mm[Hg] 122 mm[Hg] [facility] Diastolic blood pressure 70 mm[Hg] 70 mm[Hg] eCW1 ([facility]ending [facility] To [facility]) Systolic blood pressure 130 mm[Hg] 130 mm[Hg] e CW1 (Pending [facility] To [facility]) Body temperature 96 [degF] 96 [degF] eCW1 ([facility]) Respiratory rate 20 /min 20 /min eCW1 ([facility]) Heart rate 94 /min 94 /min eCW1 ([facility]) Body mass index (BMI) [Ratio] 69.51 kg/m2 69.51 kg/m2 eCW1 (Pending [facility]) Body height 64 [in_i] 64 [in_i] eCW1 ([facility]) Body weight 405 [lb_av] 405 [lb_av] eCW1 ([facility]) Diastolic blood pressure 70 mm[Hg] 70 mm[Hg] eCW1 (Pending Sale To [facility]) Systolic blood pressure 127 mm[Hg] 127 mm[Hg] e CW1 (Pending [facility] To [facility]) Body temperature 97.4 [degF] 97.4 [degF] eCW1 ( [facility]ending [facility] To [facility]) Respiratory rate 21 /min 21 /min eCW1 ([facility]) Heart rate 66 /min 66 /min eCW1 ([facility]) Body mass index (BMI) [Ratio] 69.20 kg/m2 69.20 kg/m2 eCW1 (Pending [facility] To [facility]) Body height 64 [in_i] 64 [in_i] eCW1 ([facility]) Body weight 403.2 [lb_av] 403.2 [lb_av] eCW1 ([facility]) Diastolic blood pressure 77 mm[Hg] 77 mm[Hg] eCW1 (Pending Sale To [facility]) Systolic blood pressure 178 mm[Hg] 178 mm[Hg] e CW1 (Pending [facility] To [facility]) Body temperature 99.6 [degF] 99.6 [degF] eCW1 ( [facility]ending [facility] To [facility]) Respiratory rate 20 /min 20 /min eCW1 ([facility]) Heart rate 75 /min 75 /min eCW1 ([facility]) Body mass index (BMI) [Ratio] 70.40 kg/m2 70.40 kg/m2 eCW1 (Pending [facility] To [facility]) Body height 64 [in_i] 64 [in_i] eCW1 ([facility]) Body weight 410.2 [lb_av] 410.2 [lb_av] eCW1 ([facility]) Diastolic blood pressure 60 mm[Hg] 60 mm[Hg] eCW1 (Pending [facility] To [facility]) Systolic blood pressure 122 mm[Hg] 122 mm[Hg] e CW1 (Pending [facility] To [facility]) Body temperature 98.5 [degF] 98.5 [degF] eCW1 ( [facility]ending [facility]) Respiratory rate 20 /min 20 /min eCW1 ([facility]) Heart rate 57 /min 57 /min eCW1 ([facility]) Body mass index (BMI) [Ratio] 69.85 kg/m2 69.85 kg/m2 eCW1 (Pending [facility] To [facility]) Body height 64 [in_i] 64 [in_i] eCW1 ([facility]) Body weight 407 [lb_av] 407 [lb_av] eCW1 ([facility]) Diastolic blood pressure 80 mm[Hg] 80 mm[Hg] eCW1 (Pending [facility] To [facility]) Systolic blood pressure 140 mm[Hg] 140 mm[Hg] e CW1 (Pending [facility] To [facility]) Body temperature 97 [degF] 97 [degF] eCW1 ([facility]) Respiratory rate 20 /min 20 /min eCW1 ([facility]) Heart rate 71 /min 71 /min eCW1 ([facility]) Body mass index (BMI) [Ratio] 70.20 kg/m2 70.20 kg/m2 W1 (Pending [facility]) Body height 64 [in_i] 64 [in_i] eCW1 ([facility]) Body weight 409 [lb_av] 409 [lb_av] eCW1 ([facility]) Diastolic blood pressure 98 mm[Hg] 98 mm[Hg] eCW1 (Pending [facility] To [facility]) Systolic blood pressure 199 mm[Hg] 199 mm[Hg] e CW1 (Pending [facility]) Body temperature 96.4 [degF] 96.4 [degF] eCW1 ( [facility]ending [facility] To [facility]) Respiratory rate 20 /min 20 /min eCW1 ([facility]) Heart rate 85 /min 85 /min eCW1 ([facility]) Body mass index (BMI) [Ratio] 68.93 kg/m2 68.93 kg/m2 eCW1 (Pending [facility]) Body height 64 [in_i] 64 [in_i] eCW1 ([facility]) Body weight 401.6 [lb_av] 401.6 [lb_av] eCW1 ([facility]) Diastolic blood pressure 114 mm[Hg] 114 mm[Hg] eCW1 (Pending [facility] To [facility]) Systolic blood pressure 172 mm[Hg] 172 mm[Hg] e CW1 (Pending [facility] To [facility]) Body temperature 97.0 [degF] 97.0 [degF] eCW1 ( [facility]ending [facility] To [facility]) Respiratory rate 20 /min 20 /min eCW1 ([facility]) Heart rate 78 /min 78 /min eCW1 ([facility]) Body mass index (BMI) [Ratio] 69.82 kg/m2 69.82 kg/m2 eCW1 (Pending [facility]) Body height 64 [in_i] 64 [in_i] eCW1 ([facility]) Body weight 406.8 [lb_av] 406.8 [lb_av] eCW1 ([facility]) Diastolic blood pressure 75 mm[Hg] 75 mm[Hg] eCW1 (Pending [facility] To [facility]) Systolic blood pressure 124 mm[Hg] 124 mm[Hg] e CW1 (Pending [facility] To [facility]) Body temperature 97.7 [degF] 97.7 [degF] eCW1 ( [facility]ending [facility] To [facility]) Respiratory rate 20 /min 20 /min eCW1 ([facility]) Heart rate 59 /min 59 /min eCW1 ([facility]) Body mass index (BMI) [Ratio] 69.37 kg/m2 69.37 kg/m2 eCW1 (Pending [facility] To [facility]) Body height 64 [in_i] 64 [in_i] eCW1 ([facility]) Body weight 404.2 [lb_av] 404.2 [lb_av] eCW1 ([facility]) Diastolic blood pressure 80 mm[Hg] 80 mm[Hg] eCW1 (Pending [facility] To [facility]) Systolic blood pressure 130 mm[Hg] 130 mm[Hg] e CW1 ([facility]ending [facility]) Body temperature 97.1 [degF] 97.1 [degF] eCW1 ( [facility]ending [facility] To [facility]) Respiratory rate 20 /min 20 /min eCW1 ([facility]) Heart rate 94 /min 94 /min eCW1 ([facility]) Body mass index (BMI) [Ratio] 69.17 kg/m2 69.17 kg/m2 eCW1 (Pending [facility] To [facility]) Body height 64 [in_i] 64 [in_i] eCW1 ([facility]) Body weight 403 [lb_av] 403 [lb_av] eCW1 ([facility]) Diastolic blood pressure 82 mm[Hg] 82 mm[Hg] eCW1 (Pending Sale To [facility]) Systolic blood pressure 132 mm[Hg] 132 mm[Hg] e CW1 (Pending [facility] To [facility]) Body temperature 97.1 [degF] 97.1 [degF] eCW1 ( [facility]ending [facility] To [facility]) Respiratory rate 20 /min 20 /min eCW1 ([facility]) Heart rate 97 /min 97 /min eCW1 ([facility]) Body mass index (BMI) [Ratio] 68.82 kg/m2 68.82 kg/m2 W1 (Pending [facility] To [facility]) Body height 64 [in_i] 64 [in_i] eCW1 ([facility]) Body weight 401 [lb_av] 401 [lb_av] eCW1 ([facility]) Body mass index (BMI) [Ratio] 74.3 kg/m2 74.3 k g/m2 MEDENT ([facility]) Body weight 406.00 [lb_av] 406.00 [lb_av] MEDEN T ([facility]) Body height 62 [in_i] 62 [in_i] MEDENT ([facility]) 5'2" Body mass index (BMI) [Ratio] 69.0 kg/m2 69.0 k g/m2 MED[facility] ([facility]) Body weight 390.81 [lb_av] 390.81 [lb_av] MEDEN T ([facility]) Diastolic blood pressure 78 mm[Hg] 78 mm[Hg] eCW1 (Pending Sale To [facility]) Systolic blood pressure 132 mm[Hg] 132 mm[Hg] e CW1 (Pending [facility] To [facility]) Body temperature 97.1 [degF] 97.1 [degF] eCW1 ( [facility]ending [facility] To [facility]) Respiratory rate 18 /min 18 /min eCW1 ([facility]) Heart rate 94 /min 94 /min eCW1 ([facility]) Body mass index (BMI) [Ratio] 69.17 kg/m2 69.17 kg/m2 eCW1 (Pending [facility] To [facility]) Body height 64 [in_us] 64 [in_us] eCW1 ([facility]) Body weight Measured 403 [lb_av] 403 [lb_av] eC W1 (Pending Sale To [facility]) Diastolic blood pressure 80 mm[Hg] 80 mm[Hg] eCW1 (Pending [facility] To [facility]) Systolic blood pressure 134 mm[Hg] 134 mm[Hg] e CW1 ([facility]ending [facility] To [facility]) Body temperature 96.8 [degF] 96.8 [degF] eCW1 ( [facility]ending [facility] To [facility]) Respiratory rate 20 /min 20 /min eCW1 ([facility]) Heart rate 95 /min 95 /min eCW1 ([facility]) Body mass index (BMI) [Ratio] 67.97 kg/m2 67.97 kg/m2 eCW1 (Pending [facility] To [facility]) Body height 64 [in_us] 64 [in_us] eCW1 ([facility]) Body weight Measured 396 [lb_av] 396 [lb_av] eC W1 (Pending Sale To [facility]) Diastolic blood pressure 82 mm[Hg] 82 mm[Hg] eCW1 (Pending [facility] To [facility]) Systolic blood pressure 130 mm[Hg] 130 mm[Hg] e CW1 (Pending [facility] To [facility]) Body temperature 97 [degF] 97 [degF] eCW1 ([facility]) Respiratory rate 20 /min 20 /min eCW1 ([facility]) Heart rate 90 /min 90 /min eCW1 ([facility]) Body mass index (BMI) [Ratio] 68.31 kg/m2 68.31 kg/m2 eCW1 (Pending [facility] To [facility]) Body height 64 [in_i] 64 [in_i] eCW1 ([facility]) Body weight 398 [lb_av] 398 [lb_av] eCW1 ([facility]) Diastolic blood pressure 76 mm[Hg] 76 mm[Hg] eCW1 (Pending [facility] To [facility]) Systolic blood pressure 130 mm[Hg] 130 mm[Hg] e CW1 (Pending [facility] To [facility]) Body temperature 96.9 [degF] 96.9 [degF] eCW1 ( [facility]ending [facility] To [facility]) Respiratory rate 20 /min 20 /min eCW1 ([facility]) Heart rate 84 /min 84 /min eCW1 ([facility]) Body mass index (BMI) [Ratio] 66.94 kg/m2 66.94 kg/m2 eCW1 (Pending [facility] To [facility]) Body height 64 [in_us] 64 [in_us] eCW1 ([facility]) Body weight Measured 390 [lb_av] 390 [lb_av] eC W1 (Pending Sale To [facility]) Diastolic blood pressure 99 mm[Hg] 99 mm[Hg] eCW1 (Pending Sale To [facility]) Systolic blood pressure 151 mm[Hg] 151 mm[Hg] e CW1 (Pending Sale To [facility]) Body temperature 97.2 [degF] 97.2 [degF] eCW1 ( Pending Sale To [facility]) Respiratory rate 22 /min 22 /min eCW1 ([facility]) Heart rate 83 /min 83 /min eCW1 ([facility] hospital) Body mass index (BMI) [Ratio] 67.28 kg/m2 67.28 kg/m2 eCW1 (Pending Sale To [facility]) Body height 64 [in_us] 64 [in_us] eCW1 ([facility]) Body weight Measured 392 [lb_av] 392 [lb_av] eC W1 (Pending Sale To [facility]) Diastolic blood pressure 74 mm[Hg] 74 mm[Hg] eCW1 (Pending Sale To [facility]) Systolic blood pressure 120 mm[Hg] 120 mm[Hg] e CW1 (Pending Sale To [facility]) Body temperature 96.4 [degF] 96.4 [degF] eCW1 ( Pending Sale To [facility]) Respiratory rate 18 /min 18 /min eCW1 ([facility]) Heart rate 88 /min 88 /min eCW1 (Critical access hospital) Body mass index (BMI) [Ratio] 67.11 kg/m2 67.11 kg/m2 eCW1 (Pending Sale To [facility]) Body height 64 [in_us] 64 [in_us] eCW1 ([facility]) Body weight Measured 391 [lb_av] 391 [lb_av] eC W1 (Pending Sale To [facility]) ID Date Data Source [id number] 06/04/2020 02:04:55 PM [facility] Name Value Range Interpretation Code Description Data Source(s) PREFERRED NAME [facility] ID Date Data Source [id number] 06/23/2020 10:30:53 AM [facility] Name Value Range Interpretation Code Description Data Source(s) PREFERRED NAME [facility] PREFERRED NAME [facility] ID Date Data Source [id number] 04/14/2020 03:36:51 PM [facility] Name Value Range Interpretation Code Description Data Source(s) PREFERRED NAME [facility] ID Date Data Source [id number] 04/14/2020 03:43:34 PM [facility] Name Value Range Interpretation Code Description Data Source(s) PREFERRED NAME [facility] Patient Treatment Plan of Care Planned Activity Planned Date Details Description Data Source (s) 24 HR Oxybutynin chloride 10 MG Extended Release Oral Tablet 06/17/2020 12:00:00 AM EST eCW1 ([facility]) 24 HR Oxybutynin chloride 10 MG Extended Release Oral Tablet 06/17/2020 12:00:00 AM EST eCW1 ([facility]) 24 HR Oxybutynin chloride 10 MG Extended Release Oral Tablet 06/17/2020 12:00:00 AM EST eCW1 ([facility]) 24 HR mirabegron 50 MG Extended Release Oral Tablet [M yrbetriq] 05/25/2020 12:00:00 AM EST [facility] Acetaminophen 300 MG / Codeine Phosphate 60 MG Oral Ta blet 05/14/2020 12:00:00 AM EST [facility] Acetaminophen 300 MG / Codeine Phosphate 60 MG Oral Ta blet 05/13/2020 12:00:00 AM EST eCW1 ([facility]) Acetaminophen 300 MG / Codeine Phosphate 60 MG Oral Ta blet 05/13/2020 12:00:00 AM EST eCW1 ([facility]) Acetaminophen 300 MG / Codeine Phosphate 60 MG Oral Ta blet 05/13/2020 12:00:00 AM EST eCW1 ([facility]) Acetaminophen 300 MG / Codeine Phosphate 60 MG Oral Ta blet 05/13/2020 12:00:00 AM EST eCW1 ([facility]) Acetaminophen 300 MG / Codeine Phosphate 60 MG Oral Ta blet 05/13/2020 12:00:00 AM EST eCW1 ([facility]) Acetaminophen 300 MG / Codeine Phosphate 60 MG Oral Ta blet 05/13/2020 12:00:00 AM EST eCW1 ([facility]) apixaban 2.5 MG Oral Tablet [Eliquis] 05/06/2020 12:00:00 AM EST [facility] apixaban 2.5 MG Oral Tablet [Eliquis] 05/06/2020 12:00:00 AM EST eCW1 (Pending Sale To [facility]) apixaban 2.5 MG Oral Tablet [Eliquis] 05/06/2020 12:00:00 AM EST eCW1 (Pending Sale To [facility]) apixaban 2.5 MG Oral Tablet [Eliquis] 05/06/2020 12:00:00 AM EST eCW1 (Pending Sale To [facility]) apixaban 2.5 MG Oral Tablet [Eliquis] 05/06/2020 12:00:00 AM EST eCW1 (Pending Sale To [facility]) apixaban 2.5 MG Oral Tablet [Eliquis] 05/06/2020 12:00:00 AM EST eCW1 (Pending Sale To [facility]) apixaban 2.5 MG Oral Tablet [Eliquis] 05/06/2020 12:00:00 AM EST eCW1 (Pending Sale To [facility]) apixaban 2.5 MG Oral Tablet [Eliquis] 05/06/2020 12:00:00 AM EST eCW1 (Pending Sale To [facility]) apixaban 2.5 MG Oral Tablet [Eliquis] 05/06/2020 12:00:00 AM EST eCW1 (Pending Sale To [facility]) apixaban 2.5 MG Oral Tablet [Eliquis] 05/06/2020 12:00:00 AM EST [facility] (Pending Sale To [facility]) gabapentin 600 MG Oral Tablet 04/23/2020 12:00:00 AM [facility] Triamcinolone Acetonide 1 MG/ML Topical Cream 04/01/2020 12:00:00 A M [facility] Aimovig 140 MG/ML Subcutaneous Solution Auto-injector 03/11/2020 12:00:[address] [facility] gabapentin 600 MG Oral Tablet 02/28/2020 12:00:00 AM [place] [address] (Pending Sale To [facility]) gabapentin 600 MG Oral Tablet 02/28/2020 12:00:00 AM EDT [facility] (Pending Sale To [facility]) gabapentin 600 MG Oral Tablet 02/28/2020 12:00:00 AM EDT [facility] (Pending Sale To [facility]) gabapentin 600 MG Oral Tablet 02/28/2020 12:00:00 AM EDT [facility] (Pending Sale To [facility]) gabapentin 600 MG Oral Tablet 02/28/2020 12:00:00 AM [place] [address] (Pending Sale To [facility]) gabapentin 600 MG Oral Tablet [facility] gabap[facility] 600 MG Oral Tablet 02/28/2020 12:00:00 AM [facility] gabapentin 600 MG Oral Tablet 02/28/2020 12:00:00 AM EDT eCW1 (Pending Sale To [facility]) 24 HR Bupropion Hydrochloride 150 MG Extended Release Oral Tablet [Wellbutrin] 02/28/2020 12:00:00 AM EDT eCW1 ([facility]) Amoxicillin 500 MG Oral Capsule 02/28/2020 12:00:00 AM EDT eCW1 (Pending Sale To [facility]) pregabalin 150 MG Oral Capsule [Lyrica] 11/08/2019 12:00:00 AM EDT eCW1 (Pending Sale To [facility]) pregabalin 150 MG Oral Capsule [Lyrica] 11/08/2019 12:00:00 AM EDT eCW1 (Pending Sale To [facility]) pregabalin 150 MG Oral Capsule [Lyrica] 11/08/2019 12:00:00 AM EDT eCW1 (Pending Sale To [facility]) pregabalin 150 MG Oral Capsule [Lyrica] 11/08/2019 12:00:00 AM EDT eCW1 (Pending Sale To [facility]) pregabalin 150 MG Oral Capsule [Lyrica] 11/08/2019 12:00:00 AM EDT eCW1 (Pending Sale To [facility]) Prednisone 20 MG Oral Tablet 10/31/2019 12:00:00 AM [facility] pregabalin 100 MG Oral Capsule [Lyrica] 10/08/2019 12:00:00 AM EDT eCW1 (Pending Sale To [facility]) pregabalin 100 MG Oral Capsule [Lyrica] 10/08/2019 12:00:00 AM EDT eCW1 (Pending Sale To [facility]) pregabalin 100 MG Oral Capsule [Lyrica] 10/08/2019 12:00:00 AM EDT eCW1 (Pending Sale To [facility]) pregabalin 100 MG Oral Capsule 10/08/2019 12:00:00 AM [facility] Triamcinolone Acetonide 1 MG/ML Topical Cream 09/09/2019 12:00:00 A M EDT eCW1 (Pending Sale To [facility]) pregabalin 75 MG Oral Capsule [Lyrica] 09/09/2019 12:00:00 AM EDT eCW1 (Pending Sale To [facility]) Triamcinolone Acetonide 1 MG/ML Topical Cream 09/09/2019 12:00:00 A M EDT eCW1 (Pending Sale To [facility]) gabapentin 300 MG Oral Capsule 08/30/2019 12:00:00 AM [facility] methylPREDNISolone 4 MG Oral Tablet Therapy Pack (MEDR OL DOSEPACK) 07/18/2019 12:00:00 AM EST [facility] duloxetine 60 MG Delayed Release Oral Capsule [Cymbalt a] 07/16/2019 12:00:00 AM EST eCW1 ([facility]) duloxetine 60 MG Delayed Release Oral Capsule [Cymbalt a] 07/16/2019 12:00:00 AM EST eCW1 ([facility]) duloxetine 60 MG Delayed Release Oral Capsule [Cymbalt a] 07/16/2019 12:00:00 AM EST eCW1 ([facility]) duloxetine 60 MG Delayed Release Oral Capsule [Cymbalt a] 07/16/2019 12:00:00 AM EST eCW1 ([facility]) duloxetine 60 MG Delayed Release Oral Capsule [Cymbalt a] 07/16/2019 12:00:00 AM EST eCW1 ([facility]) duloxetine 60 MG Delayed Release Oral Capsule [Cymbalt a] 07/16/2019 12:00:00 AM EST eCW1 ([facility]) duloxetine 60 MG Delayed Release Oral Capsule [Cymbalt a] 07/16/2019 12:00:00 AM EST eCW1 ([facility]) duloxetine 60 MG Delayed Release Oral Capsule [Cymbalt a] 07/16/2019 12:00:00 AM EST eCW1 ([facility]) duloxetine 60 MG Delayed Release Oral Capsule [Cymbalt a] 07/16/2019 12:00:00 AM EST eCW1 ([facility]) duloxetine 60 MG Delayed Release Oral Capsule [Cymbalt a] 07/16/2019 12:00:00 AM EST eCW1 ([facility]) duloxetine 60 MG Delayed Release Oral Capsule [Cymbalt a] 07/16/2019 12:00:00 AM EST eCW1 ([facility]) duloxetine 60 MG Delayed Release Oral Capsule [Cymbalt a] 07/16/2019 12:00:00 AM EST eCW1 ([facility]) duloxetine 60 MG Delayed Release Oral Capsule [Cymbalt a] 07/16/2019 12:00:00 AM EST eCW1 ([facility]) duloxetine 60 MG Delayed Release Oral Capsule [Cymbalt a] 07/16/2019 12:00:00 AM EST eCW1 ([facility]) duloxetine 60 MG Delayed Release Oral Capsule [Cymbalt a] 07/16/2019 12:00:00 AM EST eCW1 ([facility]) duloxetine 60 MG Delayed Release Oral Capsule [Cymbalt a] 07/16/2019 12:00:00 AM EST eCW1 ([facility]) Phenazopyridine hydrochloride 200 MG Delayed Release O ral Tablet 07/09/2019 12:00:[address] [facility] Hydrochlorothiazide 12.5 MG / Lisinopril 10 MG Oral Ta blet 06/20/2019 12:00:[address] [facility] benzonatate 100 MG Oral Capsule [Tessalon Perles] 05/17/2019 12: 00:00 AM EST eCW1 (Pending Sale To [facility]) Amoxicillin 500 MG Oral Capsule 03/22/2019 12:00:00 AM [facility] Cholecalciferol 2000 UNT Oral Capsule 01/31/2019 12:00:00 AM [facility] tizanidine 4 MG Oral Tablet 12/14/2018 12:00:00 AM [facility] Naproxen 500 MG Oral Tablet 12/12/2018 12:00:00 AM [facility] Acetaminophen 325 MG / butalbital 50 MG / Caffeine 40 MG / Codeine Phosphate 30 MG Oral Capsule 09/27/2018 12:00:00 AM [facility] 24 HR Bupropion Hydrochloride 300 MG Extended Release Oral Tablet 05/03/2018 12:00:[address] [facility] Acetaminophen 650 MG Rectal Suppository 09/08/2017 12:00:00 AM EDT [facility] potassium citrate 5 MEQ Extended Release Oral Tablet 011 12:00:00 AM EDT [facility] Hydrochlorothiazide 12.5 MG Oral Tablet 11/08/2010 12:00:00 AM EDT [facility] potassium citrate 5 MEQ Extended Release Oral Tablet 011 12:00:00 AM T [facility] apixaban 2.5 MG Oral Tablet [facility] Mupirocin 0.02 MG/MG Topical Ointment [facility] Acetaminophen 325 MG Oral Tablet [facility] Aspirin 81 MG Delayed Release Oral Tablet [facility] Ascorbic Acid 500 MG Oral Tablet [facility] 24 HR Bupropion Hydrochloride 300 MG Extended Release Oral Tablet [facility] Folic Acid 1 MG Oral Tablet [facility] Aspirin 81 MG Delayed Release Oral Tablet [facility] Folic Acid 1 MG Oral Tablet [facility] Acetaminophen 325 MG / Oxycodone Hydrochloride 5 MG Oral Tablet [facility] Tamsulosin hydrochloride 0.4 MG Oral Capsule [facility] clopidogrel 75 MG Oral Tablet [facility] Mupirocin 0.02 MG/MG Topical Ointment [facility] buspirone hydrochloride 30 MG Oral Tablet [facility] Ranitidine 150 MG Oral Tablet [facility]
[2020-07-02] MEDS ORDERED: diphenhydrAMINE 50MG/ML VIAL (J1200) IV ONE (17:45)
[2020-07-02] MEDS ORDERED: MORPHINE 2 MG/ML 1ML VIAL (J2270) IV ONE (17:45)
[2020-07-02] MEDS ORDERED: CONRAY-60 60% 50ML VIAL (Q9961) As Ordered ONE (18:11)
[2020-07-02] MEDS ORDERED: LIDOCAINE 2% 5ML JELLY UROJET As Ordered ONE (18:11)
[2020-07-02] MEDS ORDERED: HYDROmorphone HCL 2 MG/ML 1ML VIAL (J1170) As Ordered ONE (19:19)
--- NOTE | 2020-07-02 20:00 | ROOPDOC ---
[facility] Report Of Operation Report of Operation DATE OF PROCEDURE: 07/02/20 PREPROCEDURE DIAGNOSES: Left UPJ calculus POSTPROCEDURE DIAGNOSES: Left UPJ calculus with ureteritis PROCEDURE: Cystoscopy, left retrograde pyelogram, ureteroscopic stone extraction, stent insertion and x-ray interpretation SURGEON: Harpreet Ross MD KICK PLATE INSTALLER: None ANESTHESIA: Gen. ESTIMATED BLOOD LOSS: Approximately 0 mL. COMPLICATIONS: None REMARKS: Operation was Dictated because of patient's obesity PROCEDURE NOTE: This procedure was indicated because the patient had severe left flank pain and a known 2 mm left UPJ calculus. Because of the amount of the pain the patient was then she was brought to the operating room for treatment. DESCRIPTION OF PROCEDURE: Patient was placed on the table in the supine position and given general anesthesia. She is then placed in the lithotomy position with extreme difficulty because of the patient's size. She was then prepped with Betadine paint and draped in an aseptic manner. Timeout was then performed. A 22 Fijian cystoscope was then inserted into the meatus with direct vision of a 30 lens it was advanced into the bladder. The bladder appeared to be normal. The left ureteral orifice was then catheterized with a 5 Fijian Pollick catheter and retrograde injection of 10 mL showed the patient had a normal ureter. The wire guide and passed up to the renal pelvis and the cystoscope was removed. A tunnel dilator was then passed over the working wire and a flexible ureteroscope was advanced up to the proximal ureter. This area was extremely inflamed because of ureteritis. Some small stone fragments were identified and grasped and and a wire basket and extracted intact. The scope was able to be advanced and up to the renal pelvis and the calyces were identified and examined individually. One more small stone was found and retrieved with the basket. The tunnel and ureteroscope were then removed under direct vision of the ureteroscope. Cystoscope was then backloaded over the safety wire and a 6 Fijian double-J stent was fluoroscopically advanced up to the renal pelvis where it curled well when the wire was removed. The bladder and also curled well. The bladder was then drained, cystoscope was removed and the patient was awakened and sent to recovery room stable condition having tolerated the procedure well. Fluoroscopy was used and interpreted throughout the case to evaluate the ureter renal pelvis instrument positions and retrieve the stone and place the ureteral stent. HARPREET ROSS MD Jul 02, 2020 20:00
[2020-07-02] MEDS ORDERED: METOCLOPRAMIDE INJ 10MG/2ML VIAL (J2765 PER 1) As Ordered ONE (20:03)
[2020-07-02] MEDS ORDERED: HYDROMORPHONE HCL 0.5 MG/ 0.5 ML SYRINGE (J1170 PER 1) As Ordered ONE (20:10)
[2020-07-02] MEDS: HYDROMORPHONE HCL 0.5 MG/ 0.5 ML SYRINGE (J1170 PER 1) IV PRN ×2 (20:12→20:18)
[2020-07-02] MEDS ORDERED: PROMETHAZINE INJ 25 MG/ML VIAL (J2550) As Ordered ONE (20:14)
[2020-07-02] MEDS ORDERED: ONDANSETRON 4MG/2ML VIAL As Ordered ONE (20:15)
[2020-07-02] MEDS ORDERED: LR 1,000 ML IV SCH ×2 (20:30)
[2020-07-02] MEDS ORDERED: oxyCODONE 5MG TAB PO PRN (20:30)
[2020-07-02] MEDS ORDERED: PROMETHAZINE INJ 25 MG/ML VIAL (J2550) IV PRN (20:30)
[2020-07-02] MEDS ORDERED: METOCLOPRAMIDE INJ 10MG/2ML VIAL (J2765 PER 1) IV PRN (20:30)
[2020-07-02] MEDS ORDERED: ONDANSETRON 4MG/2ML VIAL IV PRN (20:30)
[2020-07-02] MEDS ORDERED: KETOROLAC TROMETHAMINE 10 MG TAB PO PRN (20:30)
[2020-07-02 21:40] VITALS: BP 159/91
--- NOTE | 2020-07-03 08:03 | REP ---
INDICATION: URETERAL STENT PLACEMENT. COMPARISON: None. TECHNIQUE: Intraoperative fluoroscopic imaging. FINDINGS: Images consistent with left ureteral stent placement. Total fluoroscopic time 40 seconds. IMPRESSION: Images demonstrate left ureteral stent placement. <Electronically signed by Isidro Tate > 07/03/20 [id number]
[2020-07-14 19:07] LABS: CA Oxalate Dihy 90 % (.); Ca Ox Monohydrate 10 % (.); Size 3x2 mm (.)
== END 2020-07-02 21:40 | disposition home or self-care (01) ==
LOC: M SDC 14:51
PROVIDERS: ATTEND Urology
DX: N20.0 Calculus of kidney (principal); N34.2 Other urethritis; D64.9 Anemia, unspecified; E66.9 Obesity, unspecified; F41.1 Generalized anxiety disorder; G25.81 Restless legs syndrome; G47.33 Obstructive sleep apnea (adult) (pediatric); G89.29 Other chronic pain; I10 Essential (primary) hypertension; M25.511 Pain in right shoulder; Z79.01 Long term (current) use of anticoagulants; Z79.899 Other long term (current) drug therapy; Z86.14 Personal history of Methicillin resistant Staphylococcus aureus infection; Z86.711 Personal history of pulmonary embolism; Z88.0 Allergy status to penicillin; Z88.1 Allergy status to other antibiotic agents; Z88.5 Allergy status to narcotic agent; Z88.8 Allergy status to other drugs, medicaments and biological substances; Z98.84 Bariatric surgery status; Z90.710 Acquired absence of both cervix and uterus; Z95.2 Presence of prosthetic heart valve; Z96.611 Presence of right artificial shoulder joint; Z96.653 Presence of artificial knee joint, bilateral
CPT/HCPCS: 52332; 52352; 74420; 82365; 88300; C1769; C1894; C2617; G0463; J1170; J1200; J2270; J2405; J2765; Q9961

== ENCOUNTER → 2020-08-07 | Outpatient (CLI) | payer MEDICARE, MEDICAID ==
--- NOTE | 2020-08-07 17:08 | REPPI ---
INDICATION: DYSPNEA. COMPARISON: Comparison chest x-ray is from July 09, 2019. TECHNIQUE: Two views.. FINDINGS: The lungs are well inflated and clear. Median sternotomy wires are noted in the patient is status post aortic valve replacement. The pleural angles are sharp. Heart is not felt to be enlarged. Pulmonary vasculature is not increased. 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 This is unchanged. Degenerative changes are noted in the thoracic spine. The IMPRESSION: No active disease status post aortic valve replacement.. <Electronically signed by Brent Dixon > 08/07/20 [id number]
[2020-08-07 17:11] LABS: BASO % 0.4 % (0.0-1.0); EOS # 0.1 10^3/uL (0.0-0.5); HEMATOCRIT 40.6 % (36.0-47.0); HEMOGLOBIN 12.3 g/dl (12.0-15.5); LYMPH # 1.6 10^3/uL (1.5-5.0); LYMPH % 22.1 % (24.0-44.0); MEAN CORPUSCULAR HEMOGLOBIN 28.5 pg (27.0-33.0); MEAN CORPUSCULAR HGB CONC 30.3 g/dl (32.0-36.5); MEAN CORPUSCULAR VOLUME 94.2 fl (80.0-96.0); MONO # 0.7 10^3/uL (0.0-0.8); MONO % 10.5 % (2.0-8.0); NEUTROPHILS # 4.5 10^3/uL (1.5-8.5); PLATELET COUNT, AUTOMATED 226 10^3/uL (150-450); RED BLOOD COUNT 4.31 10^6/uL (4.00-5.40); WHITE BLOOD COUNT 7.1 10^3/uL (4.0-10.0)
[2020-08-07 17:23] LABS: BLOOD UREA NITROGEN 13 MG/DL (7-18); CALCIUM LEVEL 9.3 MG/DL (8.8-10.2); CARBON DIOXIDE LEVEL 32 MEQ/L (21-32); CHLORIDE LEVEL 104 MEQ/L (98-107); CREATININE FOR GFR 0.83 MG/DL (0.55-1.30); GLOMERULAR FILTRATION RATE > 60.0 (>45); GLUCOSE, FASTING 101 MG/DL (70-100); POTASSIUM SERUM 4.9 MEQ/L (3.5-5.1); SODIUM LEVEL 141 MEQ/L (136-145)
== END ==
LOC: M PLAIMG 13:31
PROVIDERS: ATTEND Nurse Practitioner Family
DX: M51.34 Other intervertebral disc degeneration, thoracic region (principal); R06.00 Dyspnea, unspecified; R30.0 Dysuria; Z95.2 Presence of prosthetic heart valve

== ENCOUNTER → 2020-08-07 | Outpatient (REF) | payer MEDICARE, MEDICAID ==
[2020-08-07 15:08] LABS: APPEARANCE, URINE HAZY (CLEAR); BACTERIA, URINE AUTO 1+ (NEGATIVE); BILIRUBIN, URINE AUTO NEGATIVE (NEGATIVE); BLOOD, URINE BLOOD 3+ (NEGATIVE); COLOR, URINE YELLOW (YELLOW); GLUCOSE, URINE (UA) AUTO NEGATIVE (NEGATIVE); KETONE, URINE AUTO NEGATIVE (NEGATIVE); LEUKOCYTE ESTERASE, URINE AUTO 3+ (NEGATIVE); NITRITE, URINE AUTO NEGATIVE (NEGATIVE); PROTEIN, URINE AUTO 1+ mg/dL (NEGATIVE); RBC, URINE AUTO TNTC /HPF (0-3); SPECIFIC GRAVITY URINE AUTO 1.011 (1.002-1.035); SQUAMOUS EPITHELIAL CELL UR AU 1 /HPF (0-6); UROBILINOGEN, URINE AUTO 0.2 mg/dL (0.0-2.0); WBC, URINE AUTO TNTC /HPF (0-3)
== END ==
LOC: M SMT 14:54
PROVIDERS: ATTEND Urology
DX: R30.0 Dysuria (principal)

== ENCOUNTER → 2020-08-10 | Outpatient (CLI) | payer MEDICARE, MEDICAID ==
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
== END ==
LOC: M PAIN 09:30
PROVIDERS: ATTEND Nurse Practitioner Family
DX: M47.816 Spondylosis without myelopathy or radiculopathy, lumbar region (principal); G89.29 Other chronic pain; Z86.14 Personal history of Methicillin resistant Staphylococcus aureus infection; Z86.59 Personal history of other mental and behavioral disorders; Z96.611 Presence of right artificial shoulder joint; Z86.711 Personal history of pulmonary embolism; Z88.0 Allergy status to penicillin; Z88.1 Allergy status to other antibiotic agents; Z88.5 Allergy status to narcotic agent; Z88.8 Allergy status to other drugs, medicaments and biological substances; Z91.09 Other allergy status, other than to drugs and biological substances; E66.01 Morbid (severe) obesity due to excess calories; Z68.44 Body mass index [BMI] 60.0-69.9, adult; Z79.01 Long term (current) use of anticoagulants; Z79.899 Other long term (current) drug therapy

== ENCOUNTER → 2020-08-19 | Outpatient (CLI) | payer MEDICARE, MEDICAID ==
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
== END ==
LOC: M PAIN 10:30
PROVIDERS: ATTEND Nurse Practitioner Family
DX: N62 Hypertrophy of breast (principal); M47.816 Spondylosis without myelopathy or radiculopathy, lumbar region; F43.10 Post-traumatic stress disorder, unspecified; F41.1 Generalized anxiety disorder; F33.1 Major depressive disorder, recurrent, moderate; Z86.14 Personal history of Methicillin resistant Staphylococcus aureus infection; Z96.611 Presence of right artificial shoulder joint; Z88.0 Allergy status to penicillin; Z88.1 Allergy status to other antibiotic agents; Z88.5 Allergy status to narcotic agent; Z88.8 Allergy status to other drugs, medicaments and biological substances; Z91.09 Other allergy status, other than to drugs and biological substances; E66.01 Morbid (severe) obesity due to excess calories; Z68.44 Body mass index [BMI] 60.0-69.9, adult; Z79.01 Long term (current) use of anticoagulants; Z79.899 Other long term (current) drug therapy
CPT/HCPCS: 90834; G0463

== ENCOUNTER → 2020-10-09 | Outpatient (CLI) | payer MEDICARE, MEDICAID ==
--- NOTE | 2020-10-09 14:14 | REPMRS ---
Patient History The patient states she has not had a clinical breast exam in over a year. Family history of unknown cancer at age 24 in father, ovarian cancer at age 52 in maternal aunt. Benign radio exam breast specimen of the right breast, January 23, 2018. Benign stereotatic loc for ea lesion of the right breast, January 23, 2018. 2 benign excisional biopsies of the left breast, 2007. Took hormonal contraceptives for 2 years. No breast complaints today Patient signed the MRS sheet No covid vaccination Priors on PACS Patient Identification Verified Digital Woman Screen Mammo: October 09, 2020 - Exam #: [id number] Bilateral CC and MLO view(s) were taken. Technologist: Nubia Marcos, Technologist Prior study comparison: October 04, 2019, bilateral digital woman screen mammo performed at [facility], [place]. December 28, 2017, right breast digital mammo diagnostic unilateral, performed at [facility]. December 22, 2017, bilateral digital woman screen mammo performed at [facility], [place]. FINDINGS: There are scattered fibroglandular densities. The Volpara volumetric breast density category is:B. There is a needle biopsy marker clip noted in the right breast. There has been no change in the appearance of the mammogram from the prior studies. There is a mild amount of scattered fibroglandular density which is fairly symmetric. There is no interval development of dominant mass, architectural distortion, or grouped microcalcification suggestive of malignancy. 3-D tomosynthesis shows no additional findings. Assessment: BI-RADS/ACR category 2 mammogram. Benign Findings. Recommendation Routine screening mammogram of both breasts in 1 year (for women over age 40). This patient's [facility] Lifetime Breast Cancer Risk is estimated at 6.7 %. This mammogram was interpreted with the aid of an FDA-approved computer-aided dectection system. Electronically Signed By: Brent Dixon MD 10/09/20 [id number]
== END ==
LOC: M WHC 12:35
PROVIDERS: ATTEND Family Medicine
DX: Z12.31 Encounter for screening mammogram for malignant neoplasm of breast (principal); Z80.41 Family history of malignant neoplasm of ovary

== ENCOUNTER → 2020-10-28 | Outpatient (REF) | payer MEDICARE, MEDICAID ==
[2020-10-28 15:47] LABS: MEAN CORPUSCULAR HEMOGLOBIN 28.6 pg (27.0-33.0); MEAN CORPUSCULAR HGB CONC 30.4 g/dl (32.0-36.5); MEAN CORPUSCULAR VOLUME 94.1 fl (80.0-96.0); PLATELET COUNT, AUTOMATED 188 10^3/uL (150-450); RED BLOOD COUNT 4.89 10^6/uL (4.00-5.40); WHITE BLOOD COUNT 5.9 10^3/uL (4.0-10.0)
[2020-10-28 15:59] LABS: INR 0.99; PROTHROMBIN TIME 13.3 SECONDS (12.5-14.3)
[2020-10-28 16:04] LABS: BLOOD UREA NITROGEN 18 MG/DL (7-18); CALCIUM LEVEL 9.7 MG/DL (8.8-10.2); CARBON DIOXIDE LEVEL 32 MEQ/L (21-32); CHLORIDE LEVEL 102 MEQ/L (98-107); CREATININE FOR GFR 0.97 MG/DL (0.55-1.30); GLOMERULAR FILTRATION RATE > 60.0 (>45); GLUCOSE, FASTING 111 MG/DL (70-100); POTASSIUM SERUM 4.9 MEQ/L (3.5-5.1); SODIUM LEVEL 138 MEQ/L (136-145)
== END ==
LOC: M SFHCPLAZ 14:21
PROVIDERS: ATTEND Family Medicine
DX: Z01.818 Encounter for other preprocedural examination (principal); Z96.611 Presence of right artificial shoulder joint; Z86.711 Personal history of pulmonary embolism
CPT/HCPCS: 36415; 80048; 85027; 85610; 85730; G0463

== ENCOUNTER → 2020-11-30 | Outpatient (CLI) | payer MEDICARE, MEDICAID ==
[~2020-11-30] MED LIST changes: +ACET-897 PO; +AIMO70IN2 SQ; +ELIQ2.5T PO; +GABA-282 OR; +GABA600T4 PO; +LEXA1TAB PO; +LISI10TA15; +LISI10TA15 PO; +MAGN400T2 PO; +MUPI2OI EXT; +OXYB10TA23; +OXYB15TA14 PO; +VITA200031 PO; +VITMTA PO
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
== END ==
LOC: M PAIN 13:45
PROVIDERS: ATTEND Nurse Practitioner Family
DX: M47.816 Spondylosis without myelopathy or radiculopathy, lumbar region (principal); G89.29 Other chronic pain; Z86.14 Personal history of Methicillin resistant Staphylococcus aureus infection; Z86.59 Personal history of other mental and behavioral disorders; Z86.711 Personal history of pulmonary embolism; Z88.0 Allergy status to penicillin; Z88.1 Allergy status to other antibiotic agents; Z88.5 Allergy status to narcotic agent; Z88.8 Allergy status to other drugs, medicaments and biological substances; Z91.09 Other allergy status, other than to drugs and biological substances; E66.01 Morbid (severe) obesity due to excess calories; Z68.44 Body mass index [BMI] 60.0-69.9, adult; Z79.01 Long term (current) use of anticoagulants; Z79.899 Other long term (current) drug therapy

== ENCOUNTER 2020-12-03 16:12 | Inpatient (IN) | payer MEDICARE, MEDICAID ==
[~2020-12-03] VITALS: Ht 162.6 cm; Wt 185.7 kg
[~2020-12-03 16:12] MED LIST changes: -ACET-897 PO; -AIMO70IN2 SQ; -ELIQ2.5T PO; -GABA-282 OR; -GABA600T4 PO; -LEXA1TAB PO; -LISI10TA15; -LISI10TA15 PO; -MAGN400T2 PO; -MUPI2OI EXT; -OXYB10TA23; -OXYB15TA14 PO; -VITA200031 PO; -VITMTA PO
[2020-12-03] MEDS ORDERED: NORCO, ANEXSIA 5/325MG TABLET (HYDROcodone/ACETAMINOPHEN) PO ONE (16:50)
[2020-12-03] MEDS ORDERED: OXYB10TA23 (17:01)
[2020-12-03] MEDS ORDERED: ELIQ2.5T PO ×2 (17:01→22:53)
[2020-12-03] MEDS ORDERED: LISI10TA15 (17:01)
[2020-12-03] MEDS ORDERED: GABA-282 OR (17:01)
--- NOTE | 2020-12-03 17:34 | REP ---
INDICATION: trauma. COMPARISON: CT 06/30/2020, x-ray 07/09/2019 TECHNIQUE: AP pelvis 2 left hip views FINDINGS: AP pelvis: Pelvic ring is intact. SI joints unremarkable facet arthropathy lower lumbar spine with degenerative disc disease. Iliac wings intact pubic rami and symphysis pubis are unremarkable. There is hip osteoarthritis with diffuse narrowing of the left hip joint space with [id number] appearance centrally and marked narrowing superiorly. There are rim osteophytes on both hips evident on the frontal view. No visible fracture. Left hip: Two view show hip joint arthritis with marked narrowing of the joint space centrally and superiorly and with rim osteophyte acetabular roof and femoral head. No evidence of AVN or fracture in the femoral head. The femoral neck, trochanters and proximal shaft intact. Acetabulae and ischia are unremarkable. IMPRESSION: Significant hip osteoarthritis with marked narrowing of the left hip joint space compared to the the right and some rim osteophytes acetabular roof and femoral head. Degenerative disc changes and facet arthropathy lower lumbar spine. No visible fracture, AVN or destructive lesion. <Electronically signed by Eliezer Mcbride > 12/03/20 [id number]
--- NOTE | 2020-12-03 17:45 | REP ---
INDICATION: trama. COMPARISON: None. TECHNIQUE: Four views FINDINGS: Prominent soft tissue swelling and subcutaneous edema lower leg, ankle and hindfoot region. Degenerative changes at the inferior margins of the mediolateral malleolus with spurring. The mortise joint appeared grossly symmetric. There are marginal osteophytes along the posterior margin of talus at the subtalar joint and along the tibial plafond. No talar dome osteochondral lesion. No visible or displaced fracture in the distal tibia, fibula, hindfoot or tarsal bones. Tarsal-metatarsal articulations show some degenerative changes. There is a plantar calcaneal spur evident. IMPRESSION: 1. Degenerative changes of the ankle and hindfoot with no visible or displaced fracture, avulsion, disruption of the mortise joint or other acute bony finding. <Electronically signed by Eliezer Mcbride > 12/03/20 [id number]
[2020-12-03] MEDS ORDERED: diphenhydrAMINE 50MG/ML VIAL (J1200) IV STA (18:29)
[2020-12-03] MEDS ORDERED: ONDANSETRON 4MG/2ML VIAL IV ONE (18:30)
--- NOTE | 2020-12-03 18:48 | REP ---
INDICATION: trauma. COMPARISON: None. TECHNIQUE: Four views FINDINGS: The patient has had a left total knee arthroplasty. The 3 components are well aligned in relationship to each other and the oneida bone. No definite effusion. Subtle lucency along the lateral aspect lateral femoral condyle without a definite cortical fracture. There is also subtle lucency distal to the inferior most extent of the tibial component stem. The remainder of the Sim at prosthetic interface was unremarkable. Proximal fibula intact. IMPRESSION: 1. Status post left total knee arthroplasty with the 3 components well aligned in relationship to the oneida bone and each other. Cannot confirm a definite displaced fracture, avulsion or joint effusion. 2. A focal lucency distal and posterior to the inferior most tip of the stem component of the tibial prosthesis and area of generalized lucency along the peripheral margin of the lateral femoral condyle. I cannot entirely exclude loosening or infection with this appearance and unfortunately do not have any prior pertinent studies in our x-ray file. <Electronically signed by Eliezer Mcbride > 12/03/20 [id number]
--- NOTE | 2020-12-03 19:05 | REPVR ---
PROCEDURE INFORMATION: Exam: CT Left Lower Extremity Without Contrast, Hip Exam date and time: 12/03/2020 6:08 PM Age: 65 years old Clinical indication: Injury or trauma; Fall; Blunt trauma; Hip; Left TECHNIQUE: Imaging protocol: CT of the Left lower extremity without contrast was performed. Exam focused on the hip. Radiation optimization: All CT scans at this facility use at least one of these dose optimization techniques: automated exposure control; mA and/or kV adjustment per patient size (includes targeted exams where dose is matched to clinical indication); or iterative reconstruction. COMPARISON: MRI-Hip WITHOUT CONTRAST 06/16/2017 9:01 PM FINDINGS: Bones/joints: Degenerative changes with vacuum phenomena in the anterior sacroiliac joint. Moderate degenerative left hip arthropathy with femoroacetabular osteophytosis and subchondral cyst formation with joint space narrowing. No fracture. Soft tissues: Normal. IMPRESSION: 1. Moderate degenerative arthropathy left hip. 2. No acute findings. No fracture. Electronically signed by: Jose Dominguez On 12/03/2020 19:04:44 PM
--- NOTE | 2020-12-03 19:07 | REPVR ---
PROCEDURE INFORMATION: Exam: CT Left Lower Extremity Without Contrast, Knee Exam date and time: 12/03/2020 6:08 PM Age: 65 years old Clinical indication: Injury or trauma; Fall; Blunt trauma; Knee; Left; Prior surgery; Surgery date: 6+ months TECHNIQUE: Imaging protocol: CT of the Left lower extremity without contrast was performed. Exam focused on the knee. Radiation optimization: All CT scans at this facility use at least one of these dose optimization techniques: automated exposure control; mA and/or kV adjustment per patient size (includes targeted exams where dose is matched to clinical indication); or iterative reconstruction. COMPARISON: CR Knee, complete LEFT 12/03/2020 4:45 PM FINDINGS: Bones/joints: Status post knee replacement with patellar resurfacing. No abnormal lucency or fracture demonstrated. Soft tissues: Suprapatellar joint effusion. IMPRESSION: 1. Status post knee replacement with patellar resurfacing. Suprapatellar joint effusion, possibly chronic. 2. No acute bony findings. Electronically signed by: Jose Dominguez On 12/03/2020 19:07:17 PM
[2020-12-03] MEDS: MORPHINE 4 MG/ML 1ML VIAL/SYRINGE (J2270) IV PRN ×2 (19:44→21:56)
[2020-12-03 21:02] LABS: BASO % 0.4 % (0.0-1.0); EOS # 0.1 10^3/uL (0.0-0.5); EOS % 1.4 % (0.0-3.0); HEMATOCRIT 40.4 % (36.0-47.0); HEMOGLOBIN 12.5 g/dl (12.0-15.5); LYMPH # 1.5 10^3/uL (1.5-5.0); LYMPH % 27.2 % (24.0-44.0); MEAN CORPUSCULAR HEMOGLOBIN 28.7 pg (27.0-33.0); MEAN CORPUSCULAR HGB CONC 30.9 g/dl (32.0-36.5); MEAN CORPUSCULAR VOLUME 92.7 fl (80.0-96.0); MONO # 0.5 10^3/uL (0.0-0.8); MONO % 9.3 % (2.0-8.0); NEUTROPHILS # 3.5 10^3/uL (1.5-8.5); NEUTROPHILS % 61.3 % (36.0-66.0); PLATELET COUNT, AUTOMATED 157 10^3/uL (150-450); RED BLOOD COUNT 4.36 10^6/uL (4.00-5.40); WHITE BLOOD COUNT 5.6 10^3/uL (4.0-10.0)
[2020-12-03 21:16] LABS: BLOOD UREA NITROGEN 15 MG/DL (7-18); CALCIUM LEVEL 8.8 MG/DL (8.8-10.2); CARBON DIOXIDE LEVEL 26 MEQ/L (21-32); CHLORIDE LEVEL 104 MEQ/L (98-107); CREATININE FOR GFR 0.98 MG/DL (0.55-1.30); GLOMERULAR FILTRATION RATE > 60.0 (>45); GLUCOSE, FASTING 101 MG/DL (70-100); POTASSIUM SERUM 5.3 MEQ/L (3.5-5.1); SODIUM LEVEL 137 MEQ/L (136-145)
[2020-12-03 21:49] LABS: RSV AMPLIFICATION NEGATIVE (NEGATIVE)
[2020-12-03] MEDS ORDERED: HEPARIN SOD (PORCINE) 5000UNITS/ML 1ML VIAL/SYRINGE SQ SCH (22:35)
[2020-12-03] MEDS ORDERED: VITMTA PO (22:52)
[2020-12-03] MEDS ORDERED: VITA200031 PO (22:52)
[2020-12-03] MEDS ORDERED: AIMO70IN2 SQ (22:53)
[2020-12-03] MEDS ORDERED: LEXA1TAB PO (22:53)
[2020-12-03] MEDS ORDERED: OXYB15TA14 PO (22:53)
[2020-12-03] MEDS ORDERED: MAGN400T2 PO (22:53)
[2020-12-03] MEDS ORDERED: ACET-897 PO (22:53)
[2020-12-03] MEDS ORDERED: MUPI2OI EXT (22:53)
[2020-12-03] MEDS ORDERED: GABA600T4 PO ×2 (22:53)
[2020-12-03] MEDS ORDERED: LISI10TA15 PO (22:53)
[2020-12-04] MEDS ORDERED: NALOXONE INJ 0.4MG/1ML VIAL (J2310 PER 1MG) IV PRN (01:20)
[2020-12-04] MEDS ORDERED: NS 1,000 ML IV SCH (02:00)
--- NOTE | 2020-12-04 02:30 | HPEPDOC ---
[facility] Medical History & Physical Date of Admission Dec 03, 2020 Date of Service: Dec 03, 2020 History and Physical CHIEF COMPLAINT: "I fell down and could not get up." HISTORY OF PRESENT ILLNESS: 65-year-old female with super morbid obesity BMI of 70.4 was in her usual state of health until today when she came home walked into the living room and fell on her left side patient was wearing some slides that her daughter gave her when she tripped and twisted her left leg which fell from under her prompting her to fall down on the floor, unable to pull herself up due to severe pain. She denied any palpitations lightheadedness dizziness shortness of breath and has had no fever chills cough nausea vomiting diarrhea abdominal pain bright red blood per rectum melena black tarry stools changes in appetite or changes in bowel habits prior to this episode. Her was upstairs but could not help her due to his chronic back pain her grandson who is 15 years old is unable to help her due to her severe morbid obesity. They called EMS for help which arrived about 15 minutes after the incident, and she was brought into the emergency room for further evaluation. She denied any head trauma loss of consciousness and has had no prior episodes of recurrent falls she usually walks with a cane at times and usually manages well going up a flight of stairs to the second floor where she has her bedroom she is currently worried about being home unable to stand on her left leg she has 6 steps going into the house 7-8 steps if she uses the back door. in the ER CT of the left hip right knee have no acute fracture or dislocation she describes the pain is 10 out of 10 pain and is being admitted for pain control and possibly acute rehab services. PAST MEDICAL HISTORY: History of aortic stenosis with aortic insufficiency status post AVR with porcine valve 08/2017 follows with Drs. Hitchcock super morbid obesity BMI of 70.4 history of kidney stones depression anxiety history of MRSA infected seroma status post several months of Zyvox anemia of chronic disease chronic back pain dequervain's tenosynovitis gestational diabetes hypertension history of bacterial endocarditis with Enterococcus faecalis in 2018 A. fib postop heart surgery right shoulder replacement x2 complicated by infection unprovoked pulmonary embolism September 2018 on chronic eliquis polyneuropathy due to 9 months of Zyvox overactive bladder PAST SURGICAL HISTORY: Tonsillectomy adenoidectomy 1967 bilateral bunionectomy 1969 1973 1987 left wrist ganglion ectomy 1988 left breast biopsy 1989 total hysterectomy 1997 right knee arthroscopy 2003 bilateral knee replacement 2008 gastric bypass 2007 ESWL times 09/1999 82,015 hernia repair with mesh Dr. Promise Mayorga 2010 left ureteroscopy laser lithotripsy 2012 revision for MRSA wound infection removal of mesh 2012 redo mesh Clarissa 2012 ESWL Maximo 2020 colonoscopy 2011 right shoulder replacement and RTC repair 2016 revision on right shoulder 2016 lithotripsy 2017 aortic valve replacement with porcine valve [address] Huntley breast biopsy fat necrosis 2018 cystoscopy 2018 and July 2020 SOCIAL HISTORY: Disabled denies recreational drug use alcohol or tobacco abuse mother of 2 lives with her and 15-year-old grandson at home FAMILY HISTORY: Father age 24 due to esophageal cancer mother age 59 due to diabetes and coronary artery disease 1 brother with rheumatoid arthritis ALLERGIES: Please see below. REVIEW OF SYSTEMS: 10 point review of systems negative aside from positive findings in HPI HOME MEDICATIONS: Please see below. PHYSICAL EXAMINATION: VITAL SIGNS: See below GENERAL APPEARANCE: No distress awake alert oriented able to provide history no cyanosis pallor or icterus HEENT: No JVD thyromegaly cervical lymphadenopathy moist mucous membranes normocephalic atraumatic CARDIOVASCULAR: S1-S2 sinus rhythm well-healed scar from prior aortic valve replacement LUNGS: Air entry is equal bilaterally no adventitious breath sounds clear to auscultation bilaterally ABDOMEN: Obese soft nontender nondistended positive bowel sounds x4 quadrants no rebound or guarding EXTREMITIES: No cyanosis clubbing or pitting edema left knee has no effusion or ecchymosis ,due to pain unable to assess full range of motion left hip range of motion limited due to pain LABORATORY DATA: See below. IMAGING: See below MICROBIOLOGY: Please see below. ASSESSMENT: 65-year-old with super morbid obesity BMI of 70.4 status post mechanical fall at home presents with intractable pain unable to ambulate admitted for pain control mechanical fall at home -presents with intractable pain unable to ambulate -admitted for pain control -IV Toradol every 6 hourly with IV fluids to prevent nephrotoxicity -Percocet 1 tablet hold for respiratory distress or altered mental status due to increased risk of hypercarbic respiratory failure -Assisted ambulation fall precautions ARU screen History of aortic stenosis -with aortic insufficiency status post AVR with porcine valve 08/2017 -follows with Dr. Suazo super morbid obesity BMI of 70.4 -At risk of hypercarbic respiratory failure due to opioid use for intractable pain status post mechanical fall -CATALINO protocol -Check lipid panel thyroid profile and hemoglobin A1c history of kidney stones depression anxiety -Resumed home medications history of MRSA infected seroma status post several months of Zyvox anemia of chronic disease chronic back pain dequervain's tenosynovitis History of gestational diabetes -Check hemoglobin A1c hypertension -Resumed home meds history of bacterial endocarditis with Enterococcus faecalis in 2017 h/o A. fib postop heart surgery right shoulder replacement x2 complicated by infection h/o unprovoked pulmonary embolism September 2018 -on chronic eliquis polyneuropathy due to 9 months of Zyvox overactive bladder Vital Signs Vital Signs Date Time Temp Pulse Resp B/P (MAP) Pulse Ox O2 Delivery O2 Flow Rate FiO2 12/04/20 01:26 98.9 65 16 147/71 (96) 99 Room Air Laboratory Data Labs 24H Laboratory Tests 2 12/03/20 20:53: Immature Granulocyte % (Auto) 0.4, Neutrophils (%) (Auto) 61.3, Lymphocytes (%) (Auto) 27.2, Monocytes (%) (Auto) 9.3H, Eosinophils (%) (Auto) 1.4, Basophils (%) (Auto) 0.4, Neutrophils # (Auto) 3.5, Lymphocytes # (Auto) 1.5, Monocytes # (Auto) 0.5, Eosinophils # (Auto) 0.1, Basophils # (Auto) 0.0, Nucleated Red Blood Cells % (auto) 0.0, Anion Gap 7L, Glomerular Filtration Rate > 60.0, Calcium Level 8.8 12/03/20 20:54: Coronavirus (COVID-19)(PCR) NEGATIVE, Influenza Type A (RT-PCR) NEGATIVE, Influenza Type B (RT-PCR) NEGATIVE, Respiratory Syncytial Virus (PCR) NEGATIVE 12/04/20 00:47: CBC/BMP Laboratory Tests 12/03/20 20:53 Home Medications Scheduled Apixaban (Eliquis) 2.5 Mg Tablet, 2.5 MG PO BID Calcium Carbonate/Vitamin D3 (Calcium 500-Vit D3 200 Caplet) 1 Tab Tab, 1 TAB PO DAILY Cholecalciferol (Vitamin D3) (Vitamin D3) 50 Mcg Capsule, 50 MCG PO DAILY Cyanocobalamin (Vitamin B-12) (Vitamin B12) 2,500 Mcg Tablet, 2,500 MCG PO DAILY Erenumab-Aooe (Aimovig Autoinjector) 140 Mg/1 Ml Auto.injct, 140 MG SQ QMONTH Escitalopram Oxalate (Lexapro) 10 Mg Tablet, 10 MG PO DAILY Gabapentin (Gabapentin) 600 Mg Tablet, 1,200 MG PO DAILY Gabapentin (Gabapentin) 600 Mg Tablet, 600 MG PO QHS Lisinopril/Hydrochlorothiazide (Lisinopril-Hctz 10-12.5 mg Tab) 1 Each Tablet, 1 TAB PO DAILY Magnesium Oxide (Magnesium Oxide) 400 Mg Tablet, 400 MG PO QHS Metoprolol Tartrate (Metoprolol Tartrate) 25 Mg Tab, 12.5 MG PO BID Multivitamins (Thera M Plus Tablet) 1 Each Tablet, 1 TAB PO DAILY Oxybutynin Chloride (Oxybutynin Chloride ER) 15 Mg Tab.er.24, 15 MG PO DAILY Ropinirole HCl (Requip) 5 Mg Tab, 5 MG PO QHS Scheduled PRN Acetaminophen (Tylenol Extra Strength) 500 Mg Tablet, 1,000 MG PO Q6H PRN for PA IN LEVEL 1-5 Mupirocin (Mupirocin) 2 % Oint...g., 1 DOSE EXT BID PRN for MRSA PROPHYLAXIS PRIOR TO SURGERY BECAUSE OF MRSA HISTORY Nystatin (Nystatin Powder) 15 Gm Powder, 1 DOSE TOP BID PRN for RASH/ITCHING APPLIES UNDER BREASTS AND SKIN FOLDS Allergies Coded Allergies: Sulfa (Sulfonamide Antibiotics) (Verified Allergy, Severe, anaphylaxis, 10/30/19) Tetracyclines (Verified Allergy, Severe, 10/30/19) sulfamethoxazole (Verified Allergy, Severe, ANYPHYLAXIS, 10/30/19) Penicillins (Unverified Allergy, Mild, RASH, 12/03/20) HAS HAD AMOXICILLIN FOR DENTAL WORK WITH NO ADVERSE EFFECTS erythromycin base (Verified Allergy, Mild, rash, 12/03/20) cefadroxil (Verified Allergy, Unknown, 10/30/19) tetracycline (Verified Allergy, Unknown, 10/30/19) trimethoprim (Verified Allergy, Unknown, 10/30/19) adhesive (Verified Adverse Reaction, Intermediate, BLISTERING SKIN, 10/30/19) fentanyl (Verified Adverse Reaction, Mild, CAUSES ITCHING - NO ITCHING WHEN GIVEN W/ BENADYL, 10/30/19) levofloxacin (Verified Adverse Reaction, Mild, ITCHING WITH IV, can tolerate po, can also tolerate cipro, 10/30/19) morphine (Verified Adverse Reaction, Mild, ITCHING, 01/03/20) vancomycin (Verified Adverse Reaction, Mild, itching, 10/30/19) A-FIB/CHADSVASC A-FIB History Current/History of A-Fib/PAF?: No Current PO Anticoag Therapy: No Age/Risk Factor Scoring CHADSVASC: CHADSVASC Response (Comments) Value Age Risk Factor Age 65-74 years old 1 Gender Risk Factor Female 1 Hx of CHF No 0 Hx of HTN Yes 1 Hx of Stroke/TIA/or VTE No 0 Hx of Diabetes No 0 Hx of Vascular Disease No 0 Total 3 Treatment Treatment ordered: Apixaban SANDRA MANZANARES MD Dec 04, 2020 02:08
[2020-12-04] MEDS: KETOROLAC 30 MG/ML 1ML VIAL IV SCH ×4 (04:00→22:11)
[2020-12-04] MEDS: NORCO, ANEXSIA 5/325MG TABLET (HYDROcodone/ACETAMINOPHEN) PO SCH ×4 (05:43→23:28)
[2020-12-04 08:30] VITALS: BP 121/71
[2020-12-04] MEDS: CALCIUM/VITAMIN D 500 MG TAB PO SCH (09:00)
[2020-12-04] MEDS ORDERED: CALCIUM/VITAMIN D 500 MG TAB PO SCH (09:00)
[2020-12-04 10:35] LABS: MEAN CORPUSCULAR HEMOGLOBIN 28.5 pg (27.0-33.0); MEAN CORPUSCULAR HGB CONC 30.8 g/dl (32.0-36.5); MEAN CORPUSCULAR VOLUME 92.6 fl (80.0-96.0); PLATELET COUNT, AUTOMATED 130 10^3/uL (150-450); RED BLOOD COUNT 4.21 10^6/uL (4.00-5.40); WHITE BLOOD COUNT 5.1 10^3/uL (4.0-10.0)
[2020-12-04 10:53] LABS: HEMOGLOBIN A1c 5.8 %
[2020-12-04 11:33] LABS: BLOOD UREA NITROGEN 17 MG/DL (7-18); CALCIUM LEVEL 8.6 MG/DL (8.8-10.2); CARBON DIOXIDE LEVEL 28 MEQ/L (21-32); CHLORIDE LEVEL 104 MEQ/L (98-107); CHOLESTEROL LEVEL 178 MG/DL (<200); CREATININE FOR GFR 0.97 MG/DL (0.55-1.30); GLOMERULAR FILTRATION RATE > 60.0 (>45); GLUCOSE, FASTING 110 MG/DL (70-100); HDL CHOLESTEROL 50 MG/DL (>40); LDL CHOLESTEROL 99 MG/DL (<100); NON-HDL-C 128 MG/DL; POTASSIUM SERUM 4.2 MEQ/L (3.5-5.1); SODIUM LEVEL 140 MEQ/L (136-145); TRIGLYCERIDES LEVEL 147 MG/DL (<150)
[2020-12-04 14:00] VITALS: BP 120/74
[2020-12-04] MEDS ORDERED: ACETAMINOPHEN 500 MG TAB PO PRN (14:45)
[2020-12-04] MEDS ORDERED: NYSTATIN 100,000 UNITS/GM TOPICAL PWD 15 GM TOP PRN (14:45)
[2020-12-04] MEDS: GABAPENTIN 300 MG CAP PO SCH ×2 (16:48→22:08)
[2020-12-04] MEDS: oxyBUTYnin *DITROPAN XL* 5 MG TABCR PO SCH (16:48)
[2020-12-04] MEDS: ESCITALOPRAM OXALATE 10 MG TAB (LEXAPRO) PO SCH (16:49)
[2020-12-04 20:00] VITALS: BP 113/68
[2020-12-04] MEDS: APIXABAN 2.5 MG TAB (ELIQUIS) PO SCH (22:07)
[2020-12-04] MEDS: MAGNESIUM OXIDE 400MG TAB (MAG-OX) PO SCH (22:08)
[2020-12-04] MEDS: rOPINIRole 1MG TAB PO SCH (22:08)
[2020-12-04] MEDS: METOPROLOL TART 12.5 MG PER 1/2 TAB PO SCH (22:13)
[2020-12-05] MEDS: KETOROLAC 30 MG/ML 1ML VIAL IV SCH ×2 (05:02→09:06)
[2020-12-05] MEDS: NORCO, ANEXSIA 5/325MG TABLET (HYDROcodone/ACETAMINOPHEN) PO SCH (05:03)
[2020-12-05 06:00] VITALS: BP 126/70
[2020-12-05 06:16] LABS: HEMATOCRIT 38.1 % (36.0-47.0); HEMOGLOBIN 11.7 g/dl (12.0-15.5); MEAN CORPUSCULAR HEMOGLOBIN 28.7 pg (27.0-33.0); MEAN CORPUSCULAR HGB CONC 30.7 g/dl (32.0-36.5); MEAN CORPUSCULAR VOLUME 93.6 fl (80.0-96.0); PLATELET COUNT, AUTOMATED 124 10^3/uL (150-450); RED BLOOD COUNT 4.07 10^6/uL (4.00-5.40); WHITE BLOOD COUNT 4.5 10^3/uL (4.0-10.0)
[2020-12-05 06:33] LABS: BLOOD UREA NITROGEN 24 MG/DL (7-18); CALCIUM LEVEL 8.9 MG/DL (8.8-10.2); CARBON DIOXIDE LEVEL 29 MEQ/L (21-32); CHLORIDE LEVEL 105 MEQ/L (98-107); CREATININE FOR GFR 0.97 MG/DL (0.55-1.30); GLOMERULAR FILTRATION RATE > 60.0 (>45); GLUCOSE, FASTING 97 MG/DL (70-100); POTASSIUM SERUM 4.4 MEQ/L (3.5-5.1); SODIUM LEVEL 141 MEQ/L (136-145)
[2020-12-05] MEDS: oxyBUTYnin *DITROPAN XL* 5 MG TABCR PO SCH (08:58)
[2020-12-05] MEDS: MULTIVITAMINS/MINERALS THERAP 1 TAB PO SCH (08:58)
[2020-12-05] MEDS: CYANOCOBALAMIN 500 MCG TAB PO SCH (08:58)
[2020-12-05] MEDS: GABAPENTIN 300 MG CAP PO SCH ×2 (08:58→21:22)
[2020-12-05] MEDS: ESCITALOPRAM OXALATE 10 MG TAB (LEXAPRO) PO SCH (08:58)
[2020-12-05] MEDS: APIXABAN 2.5 MG TAB (ELIQUIS) PO SCH ×2 (08:59→21:21)
[2020-12-05] MEDS: CALCIUM/VITAMIN D 500 MG TAB PO SCH (08:59)
[2020-12-05] MEDS: METOPROLOL TART 12.5 MG PER 1/2 TAB PO SCH ×2 (09:00→21:22)
--- NOTE | 2020-12-05 10:03 | IPNPDOC ---
Subjective Date Seen The patient was seen on 12/05/20. Subjective Chief Complaint/HPI Amalia continues to have pain in her left knee, especially with weightbearing. She has not gotten up this morning Objective Physical Examination General Exam: Positive: Alert, Cooperative, Other (super morbidly obese) Eye Exam: Positive: PERRLA, Conjunctiva & lids normal, EOMI; Negative: Sclera icteric Neck Exam: Positive: Supple; Negative: JVD, thyromegaly Heart Exam: Positive: Rate Normal, Regular Rhythm, Normal S1, Normal S2; Negative: Murmurs, Rubs Abdomen Exam: Positive: Normal bowel sounds, Soft; Negative: Tenderness, Hepatospenomegaly Extremity Exam: Positive: Normal pulses, Other (left knee is tender to palpation no evidence of effusion is noted or hematoma); Negative: Clubbing, Cyanosis, Edema Assessment /Plan Assessment mechanical fall at home -presents with intractable left knee pain and unable to ambulate -pain control - will obtain mri left knee if no improvement by tomorrow History of aortic stenosis -with aortic insufficiency status post AVR with porcine valve 08/2017 -follows with Dr. Suazo super morbid obesity BMI of 70.4 -At risk of hypercarbic respiratory failure due to opioid use for intractable p ain status post mechanical fall -CATALINO protocol -Check lipid panel thyroid profile and hemoglobin A1c h/o unprovoked pulmonary embolism September 2018 -on chronic eliquis Dispo: likely will need placement Plan/VTE VTE Prophylaxis Ordered?: Yes (eliquis) VS, I&O, 24H, Fishbone Vital Signs/I&O Vital Signs Date Time Temp Pulse Resp B/P (MAP) Pulse Ox O2 Delivery O2 Flow Rate FiO2 12/05/20 06:00 96.7 61 18 126/70 (88) 95 12/05/20 05:33 Room Air I&O- Last 24 Hours up to 6 AM 12/05/20 06:00 Intake Total 1791 ml Balance 1791 ml Laboratory Data 24H LABS Laboratory Tests 2 12/05/20 05:31: Nucleated Red Blood Cells % (auto) 0.0, Anion Gap 7L, Glomerular Filtration Rate > 60.0, Calcium Level 8.9 CBC/BMP Laboratory Tests 12/05/20 05:31 SHAHNAZ CANTRELL MD Dec 05, 2020 10:03
[2020-12-05] MEDS: NORCO, ANEXSIA 5/325MG TABLET (HYDROcodone/ACETAMINOPHEN) PO PRN ×2 (12:26→18:57)
[2020-12-05 14:00] VITALS: BP 118/86
[2020-12-05] MEDS: MAGNESIUM OXIDE 400MG TAB (MAG-OX) PO SCH (21:22)
[2020-12-05] MEDS: rOPINIRole 1MG TAB PO SCH (21:22)
[2020-12-05 22:00] VITALS: BP 124/76
[2020-12-06 06:00] VITALS: BP 103/64
[2020-12-06 06:02] LABS: HEMATOCRIT 36.7 % (36.0-47.0); HEMOGLOBIN 11.2 g/dl (12.0-15.5); MEAN CORPUSCULAR HEMOGLOBIN 28.4 pg (27.0-33.0); MEAN CORPUSCULAR HGB CONC 30.5 g/dl (32.0-36.5); MEAN CORPUSCULAR VOLUME 92.9 fl (80.0-96.0); PLATELET COUNT, AUTOMATED 134 10^3/uL (150-450); RED BLOOD COUNT 3.95 10^6/uL (4.00-5.40); WHITE BLOOD COUNT 4.7 10^3/uL (4.0-10.0)
[2020-12-06] MEDS: NORCO, ANEXSIA 5/325MG TABLET (HYDROcodone/ACETAMINOPHEN) PO PRN ×3 (06:19→20:39)
[2020-12-06 06:26] LABS: CALCIUM LEVEL 8.5 MG/DL (8.8-10.2); CREATININE FOR GFR 1.08 MG/DL (0.55-1.30); GLOMERULAR FILTRATION RATE 54.2 (>45); POTASSIUM SERUM 4.5 MEQ/L (3.5-5.1)
[2020-12-06] MEDS: APIXABAN 2.5 MG TAB (ELIQUIS) PO SCH ×2 (08:26→20:37)
[2020-12-06] MEDS: GABAPENTIN 300 MG CAP PO SCH ×2 (08:26→20:37)
[2020-12-06] MEDS: CALCIUM/VITAMIN D 500 MG TAB PO SCH (08:26)
[2020-12-06] MEDS: CYANOCOBALAMIN 500 MCG TAB PO SCH (08:26)
[2020-12-06] MEDS: ESCITALOPRAM OXALATE 10 MG TAB (LEXAPRO) PO SCH (08:26)
[2020-12-06] MEDS: oxyBUTYnin *DITROPAN XL* 5 MG TABCR PO SCH (08:27)
[2020-12-06] MEDS: MULTIVITAMINS/MINERALS THERAP 1 TAB PO SCH (08:27)
[2020-12-06] MEDS: METOPROLOL TART 12.5 MG PER 1/2 TAB PO SCH ×2 (09:00→20:38)
--- NOTE | 2020-12-06 09:23 | IPNPDOC ---
Subjective Date Seen The patient was seen on 12/06/20. Subjective Chief Complaint/HPI Amalia continues to have left knee pain and is unable to walk on her left knee. Objective Physical Examination General Exam: Positive: Alert, Cooperative, Other (super morbidly obese) Eye Exam: Positive: PERRLA, Conjunctiva & lids normal, EOMI; Negative: Sclera icteric Neck Exam: Positive: Supple; Negative: JVD, thyromegaly Heart Exam: Positive: Rate Normal, Regular Rhythm, Normal S1, Normal S2; Negative: Murmurs, Rubs Abdomen Exam: Positive: Normal bowel sounds, Soft; Negative: Tenderness, Hepatospenomegaly Extremity Exam: Positive: Normal pulses, Other (left knee is tender to palpation no evidence of effusion is noted or hematoma); Negative: Clubbing, Cyanosis, Edema Assessment /Plan Assessment mechanical fall at home -presents with intractable left knee pain and unable to ambulate -pain control - will obtain mri left knee History of aortic stenosis -with aortic insufficiency status post AVR with porcine valve 08/2017 -follows with Dr. Suazo super morbid obesity BMI of 70.4 -At risk of hypercarbic respiratory failure due to opioid use for intractable pain status post mechanical fall -CATALINO protocol -Check lipid panel thyroid profile and hemoglobin A1c h/o unprovoked pulmonary embolism September 2018 -on chronic eliquis Dispo: likely will need placement Plan/VTE VTE Prophylaxis Ordered?: Yes (eliquis) VS, I&O, 24H, Fishbone Vital Signs/I&O Vital Signs Date Time Temp Pulse Resp B/P (MAP) Pulse Ox O2 Delivery O2 Flow Rate FiO2 12/06/20 06:49 18 Room Air 12/06/20 06:00 97.6 55 103/64 (77) 98 I&O- Last 24 Hours up to 6 AM 12/06/20 05:59 Intake Total 1535 ml Balance 1535 ml Laboratory Data 24H LABS Laboratory Tests 2 12/06/20 05:26: Nucleated Red Blood Cells % (auto) 0.0, Anion Gap 7L, Glomerular Filtration Rate 54.2, Calcium Level 8.5L CBC/BMP Laboratory Tests 12/06/20 05:26 SHAHNAZ CANTRELL MD Dec 06, 2020 09:23
--- NOTE | 2020-12-06 13:38 | REP ---
INDICATION: s/p fall with left knee pain, unable to wb. COMPARISON: Comparison left knee radiographs December 03, 2020. Left knee arthroplasty.. TECHNIQUE: Axial, coronal, and sagittal imaging planes utilized. T1 and T2 weighted scans are included with and without fat saturation. FINDINGS: There is extensive magnetic field susceptibility artifact from the metallic components of the knee arthroplasty. This obscures the knee to a large extent on all sequences. The proximal fibula appears intact and the distal femur is included and appears intact. The periarticular soft tissues show no definite abnormality. IMPRESSION: Extensive metallic field susceptibility artifact from arthroplasty components obscures the knee almost completely. <Electronically signed by Brent Dixon > 12/06/20 [id number]
[2020-12-06 14:00] VITALS: BP 124/84
[2020-12-06] MEDS: MAGNESIUM OXIDE 400MG TAB (MAG-OX) PO SCH (20:38)
[2020-12-06] MEDS: rOPINIRole 1MG TAB PO SCH (20:38)
[2020-12-06 22:00] VITALS: BP 140/70
[2020-12-07 06:00] VITALS: BP 123/55
[2020-12-07] MEDS: NORCO, ANEXSIA 5/325MG TABLET (HYDROcodone/ACETAMINOPHEN) PO PRN (06:08)
[2020-12-07] MEDS: APIXABAN 2.5 MG TAB (ELIQUIS) PO SCH (08:44)
[2020-12-07] MEDS: GABAPENTIN 300 MG CAP PO SCH (08:44)
[2020-12-07] MEDS: MULTIVITAMINS/MINERALS THERAP 1 TAB PO SCH (08:44)
[2020-12-07] MEDS: CYANOCOBALAMIN 500 MCG TAB PO SCH (08:44)
[2020-12-07] MEDS: oxyBUTYnin *DITROPAN XL* 5 MG TABCR PO SCH (08:44)
[2020-12-07] MEDS: CALCIUM/VITAMIN D 500 MG TAB PO SCH (08:44)
[2020-12-07] MEDS: ESCITALOPRAM OXALATE 10 MG TAB (LEXAPRO) PO SCH (08:44)
[2020-12-07 09:00] VITALS: BP 116/62
[2020-12-07] MEDS: METOPROLOL TART 12.5 MG PER 1/2 TAB PO SCH (09:00)
[2020-12-07] MEDS ORDERED: HYDR-3715 PO (10:53)
--- NOTE | 2020-12-08 12:48 | DSES ---
DISCHARGE SUMMARY DATE OF ADMISSION: 12/03/2020 DATE OF DISCHARGE: 12/07/2020 DISCHARGE DIAGNOSES: 1. Status post mechanical fall at home with left knee pain. 2. History of aortic stenosis. 3. Super morbid obesity with body mass index greater than 70. 4. History of pulmonary embolism on chronic anticoagulation. PROCEDURES PERFORMED DURING THIS HOSPITALIZATION: None. CONSULTANTS ON THE CASE: None. DISPOSITION: Patient discharged home with outpatient PT. CONDITION AT DISCHARGE: Stable. DISCHARGE INSTRUCTIONS: The patient is instructed to take [place] as needed for pain control. She is to follow up with her PCP in approximately one week. The patient is to undergo outpatient PT. RELEVANT LABS: White count 4.7, hemoglobin 11.2, hematocrit 36.7, platelet count 134,000. Sodium 144, potassium 4.5, chloride 110, bicarbonate 27, BUN 30, creatinine 1, glucose 116, calcium is 8.5. IMAGING STUDIES OBTAINED DURING THE PATIENT'S HOSPITAL STAY: MRI of the left knee which did not show anything significant. beneath left knee prosthetic. CT of the left lower extremity shows status post knee replacement with patella resurface, suprapatellar joint fusion, possibly chronic. No acute bony findings. CT of the left lower extremity hip showed moderate degenerative arthropathy left hip, no acute findings or fracture. X-ray of the left ankle showed no acute fracture or avulsion. X-ray of the left knee showed status post total knee arthroplasty with components well-aligned. X-ray of the pelvis showed no acute fracture. DISCHARGE MEDICATIONS: 1. [place] 5/325 mg one tablet every 6 hours as needed for pain. 2. Tylenol 1000 mg every 6 hours as needed for pain. 3. Eliquis 2.5 mg daily. 4. Calcium carbonate one tablet by mouth daily. 5. Cholecalciferol 50 mcg by mouth daily. 6. Vitamin B12 2500 mcg by mouth daily. 7. Erenumab 140 mg subcutaneously monthly. 8. Lexapro 10 mg daily. 9. Gabapentin 1200 mg by mouth daily. 10. Gabapentin 600 mg once daily at bedtime. 11. Lisinopril/Hydrochlorothiazide one tablet by mouth daily. 12. Magnesium oxide 400 mg once daily at bedtime. 13. Metoprolol tartrate 12.5 mg twice a day. 14. Multivitamin one tablet daily. 15. Mupirocin 2% ointment. 16. Nystatin one dose topical twice a day. 17. Oxybutynin 50 mg daily. 18. Requip 5 mg once daily at bedtime. HOSPITAL COURSE: Krys is a 65-year-old woman who is morbidly obese with a BMI greater than 70. She is on chronic anticoagulation for a previous history of DVT/PE. The patient presented to the hospital after suffering a fall, landing on the left knee. She was seen in the Emergency Room where she underwent trauma films. No evidence of fractures were documented based on studies above. The patient was admitted to the hospitalist service for pain control. She was unable to ambulate. PT/OT was consulted. The patient's pain was controlled by the medications. Clinically after several days, the patient improved where she could stand. She was cleared by PT to go home. MRI of the left knee was not significant and indicating any prosthetic damage from her fall as not much could be seen because of the metallic splay. The patient was given a prescription for outpatient PT. She was discharged home in stable condition. Skin is intact and warm to touch. She has some left lower extremity erythema which is improving and some area of denuded skin. Ulcer at the plantar base is clean, dry, and intact without any visible drainage. Head atraumatic. Her pupils are symmetric and reactive to light. Oropharynx is clear. Neck is supple. Lung sounds are present without rales or rhonchi. Heart sounds: S1, S2, no murmurs or gallops. Abdomen is soft, nontender, nondistended with protuberant abdomen. Unable to document any organomegaly given her body habitus. Extremities are without any significant cyanosis, clubbing, or hematoma involving the left knee. The left knee is slightly tender to palpation. A total of 30 minutes was spent completing all discharge paperwork.
== END 2020-12-07 12:16 | disposition home or self-care (01) | DRG 556 ==
LOC: M ED 16:12 → EDBD 16:12 → M ED INP 16:13 → EEVIPCON 16:13 → ENRESERV 12-04 07:35 → M MSPAV 12-04 08:26
PROVIDERS: ADMIT General Practice; ATTEND Internal Medicine
DX: M79.662 Pain in left lower leg (principal); Z68.45 Body mass index [BMI] 70 or greater, adult; Z86.14 Personal history of Methicillin resistant Staphylococcus aureus infection; Z86.711 Personal history of pulmonary embolism; Z88.0 Allergy status to penicillin; Z88.1 Allergy status to other antibiotic agents; Z88.5 Allergy status to narcotic agent; Z88.8 Allergy status to other drugs, medicaments and biological substances; Z91.09 Other allergy status, other than to drugs and biological substances; E66.01 Morbid (severe) obesity due to excess calories; Z79.01 Long term (current) use of anticoagulants; Z79.899 Other long term (current) drug therapy; Z96.652 Presence of left artificial knee joint; I35.0 Nonrheumatic aortic (valve) stenosis; Z96.611 Presence of right artificial shoulder joint; Z88.2 Allergy status to sulfonamides

== ENCOUNTER → 2020-12-31 | Outpatient (CLI) | payer MEDICARE ==
[~2020-12-31] MED LIST changes: +ACET-897 PO; +AIMO70IN2 SQ; +ELIQ2.5T PO; +GABA-282 OR; +GABA600T4 PO; +LEXA1TAB PO; +LISI10TA15; +LISI10TA15 PO; +MAGN400T2 PO; +MUPI2OI EXT; +OXYB10TA23; +OXYB15TA14 PO; +VITA200031 PO; +VITMTA PO
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
== END ==
LOC: M PAIN 14:30
PROVIDERS: ATTEND Anesthesiology
DX: M46.1 Sacroiliitis, not elsewhere classified (principal); M54.5 Low back pain; G89.29 Other chronic pain; M25.519 Pain in unspecified shoulder; N28.9 Disorder of kidney and ureter, unspecified; Z86.14 Personal history of Methicillin resistant Staphylococcus aureus infection; Z86.59 Personal history of other mental and behavioral disorders; Z96.653 Presence of artificial knee joint, bilateral; Z98.84 Bariatric surgery status; Z96.611 Presence of right artificial shoulder joint; Z88.0 Allergy status to penicillin; Z88.1 Allergy status to other antibiotic agents; Z88.5 Allergy status to narcotic agent; Z88.8 Allergy status to other drugs, medicaments and biological substances; Z91.09 Other allergy status, other than to drugs and biological substances; E66.01 Morbid (severe) obesity due to excess calories; Z68.44 Body mass index [BMI] 60.0-69.9, adult; Z79.01 Long term (current) use of anticoagulants; Z79.891 Long term (current) use of opiate analgesic; Z79.899 Other long term (current) drug therapy

== ENCOUNTER → 2021-01-08 | Outpatient (CLI) | payer MEDICARE ==
--- NOTE | 2021-01-08 15:48 | REP ---
INDICATION: IMPINGEMENT SYNDROME. COMPARISON: None. TECHNIQUE: Multiple views FINDINGS: The acromioclavicular and glenohumeral relationships are within normal limits. There is no acute fracture, dislocation, or subluxation. Small osteophytes seen arising from the humeral head. IMPRESSION: Mild chronic changes <Electronically signed by Dre Koroma > 01/08/21 [id number]
== END ==
LOC: M SOG 13:21
PROVIDERS: ATTEND Orthopaedic Surgery Sports Medicine
DX: M75.42 Impingement syndrome of left shoulder (principal); M25.712 Osteophyte, left shoulder

== ENCOUNTER → 2021-01-14 | Outpatient (CLI) | payer MEDICARE ==
--- NOTE | 2021-01-14 11:12 | REP ---
INDICATION: INFLAMATION OF RT SCAROLITIS JOINT. COMPARISON: None. TECHNIQUE: Axial noncontrast images through the pelvis with coronal and sagittal reformations. FINDINGS: The right sacroiliac joint appears essentially age-appropriate and without increased sclerosis, subchondral cystic changes, abnormal fusion or surrounding soft tissue abnormalities. Visualized lower lumbar spine demonstrates lumbosacral transitional vertebra with broad-based left-sided pseudoarticulation. Age-related osteopenia and multilevel degenerative changes are also noted through the visualized lumbar spine including facet hypertrophy, disc space narrowing, and chronic grade 1 anterolisthesis at the presumed L3-4 level. Visualized portions of the small and large bowel without obstruction. Large pannus versus broad-based ventral hernia containing nonobstructed small and large bowel noted. Bladder is unremarkable. Evidence for prior hysterectomy. No pelvic fluid, significant adenopathy or acute inflammatory stranding. IMPRESSION: 1. Right sacroiliac joint appears relatively age-appropriate. 2. Advanced degenerative changes to the visualized lumbosacral spine including transitional vertebra and broad-based left-sided pseudoarticulation. <Electronically signed by Isidro Taet > 01/14/21 [id number]
== END ==
LOC: M RAD 10:34
PROVIDERS: ATTEND Anesthesiology
DX: M46.1 Sacroiliitis, not elsewhere classified (principal); M85.88 Other specified disorders of bone density and structure, other site; M51.37 Other intervertebral disc degeneration, lumbosacral region

== ENCOUNTER 2021-01-21 10:20 | Emergency (ER) | payer MEDICARE, MEDICAID ==
[~2021-01-21] VITALS: Ht 160 cm; Wt 176.4 kg
[2021-01-21] MEDS ORDERED: NUCY50TA19 (10:31)
[2021-01-21] MEDS ORDERED: diphenhydrAMINE 50MG/ML VIAL (J1200) IV ONE (16:30)
[2021-01-21] MEDS ORDERED: METOCLOPRAMIDE INJ 10MG/2ML VIAL (J2765 PER 1) IV ONE (16:30)
[2021-01-21] MEDS ORDERED: KETOROLAC 30 MG/ML 1ML VIAL IV ONE (16:30)
[2021-01-21] MEDS ORDERED: NS 1,000 ML IV ONE (16:30)
[2021-01-21] MEDS ORDERED: KETO10TAB PO (20:25)
[2021-01-21] MEDS ORDERED: REGL10TA6 PO (20:25)
[2021-01-21 21:02] VITALS: BP 175/87
== END 2021-01-21 21:03 | disposition home or self-care (01) ==
LOC: M ED 10:20
DX: G43.909 Migraine, unspecified, not intractable, without status migrainosus (principal); E66.9 Obesity, unspecified; I10 Essential (primary) hypertension; F43.10 Post-traumatic stress disorder, unspecified; Z98.84 Bariatric surgery status; Z86.711 Personal history of pulmonary embolism; Z87.442 Personal history of urinary calculi; Z79.01 Long term (current) use of anticoagulants; Z79.899 Other long term (current) drug therapy; Z88.0 Allergy status to penicillin; Z88.2 Allergy status to sulfonamides; Z88.1 Allergy status to other antibiotic agents; Z91.89 Other specified personal risk factors, not elsewhere classified; Z88.5 Allergy status to narcotic agent
CPT/HCPCS: 96361; 96374; 96375; 99284; J1200; J1885; J2765

== ENCOUNTER → 2021-01-28 | Outpatient (CLI) | payer MEDICARE ==
[~2021-01-28] MED LIST changes: +KETO10TAB PO; +NUCY50TA19; +REGL10TA6 PO
== END ==
LOC: M LABSMTC 09:06
PROVIDERS: ATTEND Anesthesiology
DX: Z01.812 Encounter for preprocedural laboratory examination (principal); Z20.822 Contact with and (suspected) exposure to COVID-19

== ENCOUNTER → 2021-02-02 | Outpatient (CLI) | payer MEDICARE ==
[~2021-02-02] MED LIST changes: +BUPIVACAINE HCL 0.25% 30ML VIAL As Ordered ONE; +ISOVUE-M 300 61% 15ML VIAL As Ordered ONE; +LIDOCAINE 1% SDV 30ML VIAL As Ordered ONE; +NORCO, ANEXSIA 5/325MG TABLET (HYDROcodone/ACETAMINOPHEN) As Ordered ONE; +TRIAMCINOLONE ACETONIDE SUSP 40 MG/ML VIAL (J3301) As Ordered ONE; +diazePAM 5MG TABLET As Ordered ONE
--- NOTE | 2021-02-02 10:13 | REP ---
INDICATION: RIGHT SACRO ILIAC JOINT BLOCK. COMPARISON: None. TECHNIQUE: A single view. 22.0 seconds of fluoroscopy time is reported. FINDINGS: A single last image hold fluoroscopically obtained spot radiograph of the right SI joint document needle position and contrast injection associated with injection procedure. IMPRESSION: Procedural imaging. <Electronically signed by Brent Dixon > 02/02/21 [id number]
== END ==
LOC: M PAIN 08:30
PROVIDERS: ATTEND Anesthesiology
DX: M46.1 Sacroiliitis, not elsewhere classified (principal); G47.30 Sleep apnea, unspecified; Z86.14 Personal history of Methicillin resistant Staphylococcus aureus infection; Z86.59 Personal history of other mental and behavioral disorders; Z88.0 Allergy status to penicillin; Z88.1 Allergy status to other antibiotic agents; Z88.5 Allergy status to narcotic agent; Z88.8 Allergy status to other drugs, medicaments and biological substances; Z91.09 Other allergy status, other than to drugs and biological substances; E66.01 Morbid (severe) obesity due to excess calories; Z68.44 Body mass index [BMI] 60.0-69.9, adult; Z79.01 Long term (current) use of anticoagulants; Z79.899 Other long term (current) drug therapy
CPT/HCPCS: G0260; J3301; Q9967

== ENCOUNTER → 2021-03-16 | Outpatient (CLI) | payer MEDICARE ==
[~2021-03-16] MED LIST changes: -BUPIVACAINE HCL 0.25% 30ML VIAL As Ordered ONE; -ISOVUE-M 300 61% 15ML VIAL As Ordered ONE; -LIDOCAINE 1% SDV 30ML VIAL As Ordered ONE; -NORCO, ANEXSIA 5/325MG TABLET (HYDROcodone/ACETAMINOPHEN) As Ordered ONE; -TRIAMCINOLONE ACETONIDE SUSP 40 MG/ML VIAL (J3301) As Ordered ONE; -diazePAM 5MG TABLET As Ordered ONE
[2021-03-16 10:33] LABS: BASO % 0.4 % (0.0-1.0); EOS # 0.1 10^3/uL (0.0-0.5); EOS % 1.9 % (0.0-3.0); HEMOGLOBIN 12.9 g/dl (12.0-15.5); LYMPH # 1.7 10^3/uL (1.5-5.0); LYMPH % 32.1 % (24.0-44.0); MEAN CORPUSCULAR HEMOGLOBIN 28.8 pg (27.0-33.0); MONO # 0.5 10^3/uL (0.0-0.8); MONO % 9.6 % (2.0-8.0); NEUTROPHILS # 2.9 10^3/uL (1.5-8.5); NEUTROPHILS % 55.6 % (36.0-66.0); PLATELET COUNT, AUTOMATED 159 10^3/uL (150-450); RED BLOOD COUNT 4.48 10^6/uL (4.00-5.40); WHITE BLOOD COUNT 5.2 10^3/uL (4.0-10.0)
[2021-03-16 11:05] LABS: ALBUMIN 3.4 GM/DL (3.2-5.2); BILIRUBIN,TOTAL 0.4 MG/DL (0.2-1.0); CALCIUM LEVEL 9.4 MG/DL (8.8-10.2); CREATININE FOR GFR 1.04 MG/DL (0.55-1.30); GLOMERULAR FILTRATION RATE 56.6 (>45); POTASSIUM SERUM 4.3 MEQ/L (3.5-5.1); TOTAL PROTEIN 6.9 GM/DL (6.4-8.2)
== END ==
LOC: M PLALAB 07:55
PROVIDERS: ATTEND Psychiatry & Neurology Neurology
DX: R51.9 Headache, unspecified (principal); Z79.899 Other long term (current) drug therapy

== ENCOUNTER → 2021-03-16 | Outpatient (CLI) | payer MEDICARE ==
--- NOTE | 2021-03-16 14:17 | REP ---
INDICATION: TL SHOULDER IMPINGEMENT SYNDROME ? RCT. COMPARISON: Radiographs 01/08/2021. TECHNIQUE: Coronal oblique T1, T2 fat sat, sagittal oblique T2 fat sat, axial T2 fat sat, gradient echo. FINDINGS: Rotator cuff: There is moderate tendinopathy/tendinitis of the subscapularis and supraspinatus tendons. There is a partial full-thickness tear of the supraspinatus tendon. Acromioclavicular joint: There are moderate hypertrophic degenerative changes of the acromioclavicular joint. Acromion: Type 1 Biceps Tendon: Biceps tendon is not seen within the bicipital groove, only a small amount of fluid is seen in the groove. There appears to be a tear of the long head of the biceps tendon which is likely retracted distally. Hill Sach's deformity: None. Deltoid muscle: No abnormal signal. Biceps labral complex: Long head of the biceps is torn from the biceps labral complex. Labrum: There tears of the anterior and posterior labrum. The superior and inferior labrum are diffusely frayed. Cartilage: There is moderate chondromalacia at the glenohumeral joint. Bone marrow: There is diffuse subchondral cystic change and marrow edema of the humeral head. There is subchondral marrow edema in the inferior glenoid, as well as in the acromion and clavicle at the acromioclavicular joint. Joint fluid: There is moderate joint effusion. Mild fluid extends into the subacromial/subdeltoid bursae. IMPRESSION: Moderate tendinopathy/tendinitis of the subscapularis and supraspinatus tendons. There is a partial full-thickness tear of the supraspinatus tendon. There are moderate hypertrophic degenerative changes of the acromioclavicular joint. Long head of the biceps is torn from the biceps labral complex and is not seen in the bicipital groove, likely retracted distally. There are tears of the anterior and posterior labrum, with fraying diffusely of the superior and inferior labrum. Moderate chondromalacia glenohumeral joint with associated subchondral marrow edema and cystic change. Moderate joint effusion. Mild fluid in the subacromial/subdeltoid bursae. <Electronically signed by Alex Meeks > 03/16/21 [id number]
== END ==
LOC: M PLAIMG 07:50
PROVIDERS: ATTEND Orthopaedic Surgery Sports Medicine
DX: M75.42 Impingement syndrome of left shoulder (principal); M94.212 Chondromalacia, left shoulder; M25.412 Effusion, left shoulder; S43.402A Unspecified sprain of left shoulder joint, initial encounter; X58.XXXA Exposure to other specified factors, initial encounter; Y92.9 Unspecified place or not applicable; Y99.9 Unspecified external cause status; Y93.9 Activity, unspecified; M19.012 Primary osteoarthritis, left shoulder; R51.9 Headache, unspecified; Z79.899 Other long term (current) drug therapy

== ENCOUNTER → 2021-03-23 | Outpatient (CLI) | payer MEDICARE | LOC: M PAIN 10:30 | PROVIDERS: ATTEND Anesthesiology | DX: M48.061 Spinal stenosis, lumbar region without neurogenic claudication (principal); G89.29 Other chronic pain; G47.30 Sleep apnea, unspecified; Z86.14 Personal history of Methicillin resistant Staphylococcus aureus infection; E66.01 Morbid (severe) obesity due to excess calories; Z68.44 Body mass index [BMI] 60.0-69.9, adult; Z79.01 Long term (current) use of anticoagulants; Z79.899 Other long term (current) drug therapy ==

== ENCOUNTER 2021-04-30 12:36 | Emergency (ER) | payer MEDICARE ==
[~2021-04-30] VITALS: Ht 157.5 cm; Wt 178.5 kg
[2021-04-30] MEDS ORDERED: NS 1,000 ML IV ONE (13:25)
[2021-04-30] MEDS ORDERED: MORPHINE 4 MG/ML 1ML VIAL/SYRINGE (J2270) IV ONE (13:25)
[2021-04-30] MEDS ORDERED: diphenhydrAMINE 50MG/ML VIAL (J1200) IV ONE (13:25)
--- NOTE | 2021-04-30 14:02 | REP ---
INDICATION: left flank pain/hx stones COMPARISON: 06/30/2020 TECHNIQUE: Axial noncontrast images from the lung bases to the pubic symphysis with coronal and sagittal reformations. This CT examination was performed using the following dose reduction techniques: Automated exposure control, adjustment of mA and/or kv according to the patient's size, and use of iterative reconstruction technique. FINDINGS: Left kidney demonstrates moderate acute obstructive uropathy including perinephric stranding and hydronephrosis with a 2.5 mm calculus at the ureteropelvic junction (series 201; image 69). Few nonobstructing left renal calculi are also identified measuring up to 4 mm. Right kidney includes multiple nonobstructing calculi up to 5 mm without hydronephrosis or acute perinephric stranding. Liver, spleen, pancreas, gallbladder, and bilateral adrenal glands are normal. Evidence for prior gastric bypass surgery. Small and large bowel without obstruction or acute inflammatory process. Diverticulosis noted without acute diverticulitis. Pelvis demonstrates normal bladder and prior hysterectomy. No ascites. No free air. No adenopathy. Abdominal aorta without aneurysm. Musculoskeletal structures demonstrate degenerative changes. Lung bases are clear. IMPRESSION: 1. Acute left-sided obstructive uropathy with a 2.5 mm calculus at the ureteropelvic junction along with nonobstructing bilateral nephroliths. <Electronically signed by Isidro Tate > 04/30/21 [id number]
[2021-04-30 14:49] LABS: BASO % 0.2 % (0.0-1.0); EOS # 0.1 10^3/uL (0.0-0.5); EOS % 1.3 % (0.0-3.0); HEMATOCRIT 40.9 % (36.0-47.0); HEMOGLOBIN 12.7 g/dl (12.0-15.5); LYMPH # 1.3 10^3/uL (1.5-5.0); LYMPH % 21.8 % (24.0-44.0); MEAN CORPUSCULAR HEMOGLOBIN 29.6 pg (27.0-33.0); MEAN CORPUSCULAR HGB CONC 31.1 g/dl (32.0-36.5); MEAN CORPUSCULAR VOLUME 95.3 fl (80.0-96.0); MONO # 0.6 10^3/uL (0.0-0.8); MONO % 9.9 % (2.0-8.0); NEUTROPHILS % 66.5 % (36.0-66.0); PLATELET COUNT, AUTOMATED 140 10^3/uL (150-450); RED BLOOD COUNT 4.29 10^6/uL (4.00-5.40)
[2021-04-30 15:13] LABS: BLOOD UREA NITROGEN 21 MG/DL (7-18); CALCIUM LEVEL 9.7 MG/DL (8.8-10.2); CARBON DIOXIDE LEVEL 34 MEQ/L (21-32); CHLORIDE LEVEL 102 MEQ/L (98-107); CREATININE FOR GFR 0.86 MG/DL (0.55-1.30); GLOMERULAR FILTRATION RATE > 60.0 (>45); GLUCOSE, FASTING 103 MG/DL (70-100); POTASSIUM SERUM 4.5 MEQ/L (3.5-5.1); SODIUM LEVEL 140 MEQ/L (136-145)
[2021-04-30] MEDS ORDERED: NITROFURANTOIN (MACROBID) 100 MG CAP PO ONE (16:25)
[2021-04-30] MEDS ORDERED: NORCO, ANEXSIA 5/325MG TABLET (HYDROcodone/ACETAMINOPHEN) PO ONE (16:30)
[2021-04-30] MEDS ORDERED: MACR100C43 PO (16:33)
[2021-04-30] MEDS ORDERED: FLOM0.4C39 PO (16:33)
[2021-04-30] MEDS ORDERED: HYDR-4517 PO (16:33)
[2021-04-30 17:05] VITALS: BP 101/55
== END 2021-04-30 17:23 | disposition home or self-care (01) ==
LOC: M ED 12:36
DX: N39.0 Urinary tract infection, site not specified (principal); N20.1 Calculus of ureter; E11.40 Type 2 diabetes mellitus with diabetic neuropathy, unspecified; I10 Essential (primary) hypertension; G43.909 Migraine, unspecified, not intractable, without status migrainosus; G47.33 Obstructive sleep apnea (adult) (pediatric); E66.01 Morbid (severe) obesity due to excess calories; M54.30 Sciatica, unspecified side; F43.10 Post-traumatic stress disorder, unspecified; Z87.442 Personal history of urinary calculi; Z98.84 Bariatric surgery status; Z79.01 Long term (current) use of anticoagulants; Z79.899 Other long term (current) drug therapy; Z88.0 Allergy status to penicillin; Z88.2 Allergy status to sulfonamides; Z88.1 Allergy status to other antibiotic agents; Z91.89 Other specified personal risk factors, not elsewhere classified; Z88.5 Allergy status to narcotic agent; Z88.8 Allergy status to other drugs, medicaments and biological substances
CPT/HCPCS: 36415; 74176; 80048; 81001; 85025; 87086; 96361; 96374; 96375; 99284; J1200; J2270

== ENCOUNTER → 2021-05-21 | Outpatient (CLI) | payer MEDICARE ==
[~2021-05-21] MED LIST changes: +HYDR-4517 PO; -LISI10TA15; -LISI10TA15 PO; +LISI10TA24; +LISI10TA24 PO; +SUMA4CAR; -SUMA4INJ4
== END ==
LOC: M LABSMTC 13:19
PROVIDERS: ATTEND Anesthesiology
DX: Z20.822 Contact with and (suspected) exposure to COVID-19 (principal)

== ENCOUNTER → 2021-05-25 | Outpatient (CLI) | payer MEDICARE ==
[~2021-05-25] MED LIST changes: +ISOVUE-M 300 61% 15ML VIAL As Ordered ONE; +LIDOCAINE 1% SDV 30ML VIAL As Ordered ONE; +diazePAM 2 MG TAB As Ordered ONE; +diazePAM 5MG TABLET As Ordered ONE; +methylPREDNISolone SUSP 40MG/ML 1ML VIAL (DEPO MEDROL) As Ordered ONE; +oxyCODONE 5MG TAB As Ordered ONE
== END ==
LOC: M PAIN 11:40
PROVIDERS: ATTEND Anesthesiology
DX: M51.16 Intervertebral disc disorders with radiculopathy, lumbar region (principal); G47.30 Sleep apnea, unspecified; Z86.14 Personal history of Methicillin resistant Staphylococcus aureus infection; Z86.59 Personal history of other mental and behavioral disorders; Z86.711 Personal history of pulmonary embolism; Z88.0 Allergy status to penicillin; Z88.1 Allergy status to other antibiotic agents; Z88.5 Allergy status to narcotic agent; Z88.8 Allergy status to other drugs, medicaments and biological substances; Z91.09 Other allergy status, other than to drugs and biological substances; E66.01 Morbid (severe) obesity due to excess calories; Z68.44 Body mass index [BMI] 60.0-69.9, adult; Z79.01 Long term (current) use of anticoagulants; Z79.899 Other long term (current) drug therapy
CPT/HCPCS: 62323; J1030; Q9967

== ENCOUNTER 2021-06-24 10:47 | Emergency (ER) | payer MEDICARE, MEDICAID ==
[~2021-06-24] VITALS: Ht 162.6 cm; Wt 175.4 kg
[~2021-06-24 10:47] MED LIST changes: -FLUC100T; +FLUC100T3; -ISOVUE-M 300 61% 15ML VIAL As Ordered ONE; -LIDOCAINE 1% SDV 30ML VIAL As Ordered ONE; -diazePAM 2 MG TAB As Ordered ONE; -diazePAM 5MG TABLET As Ordered ONE; -methylPREDNISolone SUSP 40MG/ML 1ML VIAL (DEPO MEDROL) As Ordered ONE; -oxyCODONE 5MG TAB As Ordered ONE
[2021-06-24] MEDS ORDERED: OXYC1TAB23 (10:54)
[2021-06-24] MEDS ORDERED: NS 1,000 ML IV ONE (11:45)
[2021-06-24] MEDS ORDERED: CONRAY-60 60% 50ML VIAL (Q9961) As Ordered ONE (12:36)
[2021-06-24 13:02] LABS: BASO % 0.5 % (0.0-1.0); EOS # 0.1 10^3/uL (0.0-0.5); EOS % 2.3 % (0.0-3.0); HEMATOCRIT 41.8 % (36.0-47.0); HEMOGLOBIN 12.7 g/dl (12.0-15.5); LYMPH # 1.2 10^3/uL (1.5-5.0); LYMPH % 27.3 % (24.0-44.0); MEAN CORPUSCULAR HEMOGLOBIN 29.2 pg (27.0-33.0); MEAN CORPUSCULAR HGB CONC 30.4 g/dl (32.0-36.5); MEAN CORPUSCULAR VOLUME 96.1 fl (80.0-96.0); MONO # 0.5 10^3/uL (0.0-0.8); MONO % 11.2 % (2.0-8.0); NEUTROPHILS # 2.5 10^3/uL (1.5-8.5); NEUTROPHILS % 58.2 % (36.0-66.0); PLATELET COUNT, AUTOMATED 157 10^3/uL (150-450); RED BLOOD COUNT 4.35 10^6/uL (4.00-5.40); WHITE BLOOD COUNT 4.3 10^3/uL (4.0-10.0)
[2021-06-24 13:11] LABS: INR 0.91; PARTIAL THROMBOPLASTIN TIME 29.2 SECONDS (25.9-37.0); PROTHROMBIN TIME 12.7 SECONDS (12.7-14.5)
[2021-06-24 13:28] LABS: ALBUMIN 3.4 GM/DL (3.2-5.2); ALT/SGPT 20 U/L (12-78); BILIRUBIN,DIRECT 0.1 MG/DL (0.0-0.2); BILIRUBIN,TOTAL 0.4 MG/DL (0.2-1.0); BLOOD UREA NITROGEN 17 MG/DL (7-18); CALCIUM LEVEL 9.2 MG/DL (8.8-10.2); CARBON DIOXIDE LEVEL 32 MEQ/L (21-32); CHLORIDE LEVEL 104 MEQ/L (98-107); GLOMERULAR FILTRATION RATE > 60.0 (>45); GLUCOSE, FASTING 98 MG/DL (70-100); LIPASE 67 U/L (73-393); POTASSIUM SERUM 4.4 MEQ/L (3.5-5.1); SODIUM LEVEL 141 MEQ/L (136-145); TOTAL PROTEIN 6.9 GM/DL (6.4-8.2)
[2021-06-24] MEDS ORDERED: PERCOCET 5MG/325MG TAB PO ONE (15:00)
[2021-06-24] MEDS ORDERED: CIPROFLOXACIN 250MG TAB PO ONE (16:45)
[2021-06-24] MEDS ORDERED: OXYC1TAB23 PO (16:48)
[2021-06-24] MEDS ORDERED: CIPR-249 PO (16:48)
[2021-06-24 17:48] VITALS: BP 143/63
== END 2021-06-24 17:57 | disposition home or self-care (01) ==
LOC: M ED 10:47
DX: N39.0 Urinary tract infection, site not specified (principal); N20.0 Calculus of kidney; I45.19 Other right bundle-branch block; I44.0 Atrioventricular block, first degree; E11.9 Type 2 diabetes mellitus without complications; I10 Essential (primary) hypertension; Z87.442 Personal history of urinary calculi; G43.909 Migraine, unspecified, not intractable, without status migrainosus; Z79.01 Long term (current) use of anticoagulants; Z79.899 Other long term (current) drug therapy; Z88.0 Allergy status to penicillin; Z88.2 Allergy status to sulfonamides; Z88.1 Allergy status to other antibiotic agents; Z91.89 Other specified personal risk factors, not elsewhere classified; Z88.8 Allergy status to other drugs, medicaments and biological substances

== ENCOUNTER → 2021-07-13 | Outpatient (CLI) | payer MEDICARE ==
[~2021-07-13] MED LIST changes: +CIPR-249 PO; +OXYC1TAB23
== END ==
LOC: M PAIN 13:30
PROVIDERS: ATTEND Nurse Practitioner Family
DX: M51.16 Intervertebral disc disorders with radiculopathy, lumbar region (principal); G89.29 Other chronic pain; G47.30 Sleep apnea, unspecified; Z86.14 Personal history of Methicillin resistant Staphylococcus aureus infection; Z86.59 Personal history of other mental and behavioral disorders; Z88.0 Allergy status to penicillin; Z88.1 Allergy status to other antibiotic agents; Z88.5 Allergy status to narcotic agent; Z88.8 Allergy status to other drugs, medicaments and biological substances; Z91.09 Other allergy status, other than to drugs and biological substances; E66.01 Morbid (severe) obesity due to excess calories; Z68.44 Body mass index [BMI] 60.0-69.9, adult; Z79.01 Long term (current) use of anticoagulants; Z79.899 Other long term (current) drug therapy

== ENCOUNTER 2021-07-20 09:41 | Emergency (ER) | payer MEDICARE, MEDICAID ==
[~2021-07-20] VITALS: Ht 162.6 cm; Wt 176.4 kg
[2021-07-20 12:39] LABS: BASO % 0.4 % (0.0-1.0); EOS # 0.1 10^3/uL (0.0-0.5); EOS % 1.9 % (0.0-3.0); HEMATOCRIT 40.2 % (36.0-47.0); HEMOGLOBIN 12.8 g/dl (12.0-15.5); LYMPH # 1.5 10^3/uL (1.5-5.0); LYMPH % 31.9 % (24.0-44.0); MEAN CORPUSCULAR HGB CONC 31.8 g/dl (32.0-36.5); MEAN CORPUSCULAR VOLUME 94.1 fl (80.0-96.0); MONO # 0.5 10^3/uL (0.0-0.8); MONO % 9.7 % (2.0-8.0); NEUTROPHILS # 2.7 10^3/uL (1.5-8.5); NEUTROPHILS % 55.9 % (36.0-66.0); PLATELET COUNT, AUTOMATED 124 10^3/uL (150-450); RED BLOOD COUNT 4.27 10^6/uL (4.00-5.40); WHITE BLOOD COUNT 4.8 10^3/uL (4.0-10.0)
[2021-07-20] MEDS ORDERED: ONDANSETRON 4MG/2ML VIAL IV ONE (13:00)
[2021-07-20] MEDS ORDERED: NS 1,000 ML IV ONE (13:00)
[2021-07-20] MEDS ORDERED: methylPREDNISolone 125MG 2ML VIAL IV ONE (13:00)
[2021-07-20 13:14] LABS: CK-MB VALUE MASS < 1.0 NG/ML (<3.6); CPK CREATINE PHOSPHOKINASE 58 U/L (26-192); MB/CK RELATIVE INDEX 1.72 (< OR =4)
[2021-07-20 13:30] LABS: ALBUMIN 3.1 GM/DL (3.2-5.2); ALT/SGPT 22 U/L (12-78); BILIRUBIN,DIRECT 0.1 MG/DL (0.0-0.2); BILIRUBIN,TOTAL 0.4 MG/DL (0.2-1.0); BLOOD UREA NITROGEN 18 MG/DL (7-18); CALCIUM LEVEL 8.9 MG/DL (8.8-10.2); CARBON DIOXIDE LEVEL 32 MEQ/L (21-32); CHLORIDE LEVEL 106 MEQ/L (98-107); CREATININE FOR GFR 0.93 MG/DL (0.55-1.30); GLOMERULAR FILTRATION RATE > 60.0 (>45); GLUCOSE, FASTING 95 MG/DL (70-100); POTASSIUM SERUM 4.4 MEQ/L (3.5-5.1); SODIUM LEVEL 140 MEQ/L (136-145); TOTAL PROTEIN 6.5 GM/DL (6.4-8.2)
[2021-07-20 15:31] LABS: CK-MB VALUE MASS < 1.0 NG/ML (<3.6); CPK CREATINE PHOSPHOKINASE 49 U/L (26-192); MB/CK RELATIVE INDEX 2.04 (< OR =4)
[2021-07-20 16:40] VITALS: BP 117/58
== END 2021-07-20 16:50 | disposition home or self-care (01) ==
LOC: M ED 09:41
DX: U07.1 COVID-19 (principal); R06.02 Shortness of breath; R53.83 Other fatigue; R94.31 Abnormal electrocardiogram [ECG] [EKG]; I10 Essential (primary) hypertension; G47.33 Obstructive sleep apnea (adult) (pediatric); Z86.711 Personal history of pulmonary embolism; Z79.01 Long term (current) use of anticoagulants; Z79.899 Other long term (current) drug therapy; Z88.0 Allergy status to penicillin; Z88.1 Allergy status to other antibiotic agents; Z88.2 Allergy status to sulfonamides; Z88.8 Allergy status to other drugs, medicaments and biological substances
CPT/HCPCS: 71045; 80048; 80076; 82550; 82553; 84484; 85025; 93005; 96374; 96375; 99284; J2405; J2930

== ENCOUNTER 2021-07-29 15:26 | Emergency (ER) | payer MEDICARE, MEDICAID ==
[~2021-07-29] VITALS: Ht 162.6 cm; Wt 172.2 kg
[2021-07-29 15:26] VITALS: BP 118/64
[2021-07-29] MEDS ORDERED: diazePAM 10MG/2ML SYRINGE (J3360 PER 5MG) IV ONE (22:30)
[2021-07-29] MEDS ORDERED: BENZONATATE 100MG CAPSULE PO ONE (22:30)
[2021-07-29] MEDS ORDERED: methylPREDNISolone 125MG 2ML VIAL IV ONE (22:40)
[2021-07-29 22:47] LABS: BASO % 0.5 % (0.0-1.0); EOS # 0.1 10^3/uL (0.0-0.5); EOS % 1.3 % (0.0-3.0); HEMATOCRIT 43.9 % (36.0-47.0); HEMOGLOBIN 13.6 g/dl (12.0-15.5); LYMPH # 2.6 10^3/uL (1.5-5.0); LYMPH % 31.4 % (24.0-44.0); MEAN CORPUSCULAR HEMOGLOBIN 29.4 pg (27.0-33.0); MONO # 0.7 10^3/uL (0.0-0.8); NEUTROPHILS # 4.7 10^3/uL (1.5-8.5); NEUTROPHILS % 57.1 % (36.0-66.0); PLATELET COUNT, AUTOMATED 190 10^3/uL (150-450); RED BLOOD COUNT 4.62 10^6/uL (4.00-5.40); WHITE BLOOD COUNT 8.2 10^3/uL (4.0-10.0)
[2021-07-29] MEDS ORDERED: ISOVUE-370 76% 100ML VIAL As Ordered ONE (23:04)
[2021-07-29 23:05] LABS: ERYTHROCYTE SEDIMENTATION RATE 7 mm/hr (0-30)
[2021-07-30 00:13] LABS: C REACTIVE PROTEIN QUANTITATIV 0.48 MG/DL (0.00-0.30); CALCIUM LEVEL 8.3 MG/DL (8.8-10.2); CREATININE FOR GFR 1.41 MG/DL (0.55-1.30); GLOMERULAR FILTRATION RATE 39.8 (>45)
[2021-07-30 00:19] LABS: CK-MB VALUE MASS < 1.0 NG/ML (<3.6); CPK CREATINE PHOSPHOKINASE 56 U/L (26-192); MB/CK RELATIVE INDEX 1.79 (< OR =4)
[2021-07-30 01:50] LABS: CK-MB VALUE MASS 1.3 NG/ML (<3.6); MB/CK RELATIVE INDEX 1.97 (< OR =4)
[2021-07-30] MEDS ORDERED: PERCOCET 5MG/325MG TAB PO ONE (01:50)
[2021-07-30] MEDS ORDERED: METH-1165 PO (02:08)
[2021-07-30] MEDS ORDERED: BENZ200C70 PO (02:08)
== END 2021-07-30 02:26 | disposition home or self-care (01) ==
LOC: M ED 15:26
DX: R05.9 Cough, unspecified (principal); R06.02 Shortness of breath; Z86.16 Personal history of COVID-19; M54.9 Dorsalgia, unspecified; I25.10 Atherosclerotic heart disease of native coronary artery without angina pectoris; E11.40 Type 2 diabetes mellitus with diabetic neuropathy, unspecified; I77.810 Thoracic aortic ectasia; Z98.84 Bariatric surgery status; I51.7 Cardiomegaly; Z95.2 Presence of prosthetic heart valve; I10 Essential (primary) hypertension; Z87.442 Personal history of urinary calculi; Z86.711 Personal history of pulmonary embolism; Z79.01 Long term (current) use of anticoagulants; Z79.899 Other long term (current) drug therapy; Z88.2 Allergy status to sulfonamides; Z88.1 Allergy status to other antibiotic agents; Z88.0 Allergy status to penicillin; Z88.8 Allergy status to other drugs, medicaments and biological substances; Z91.89 Other specified personal risk factors, not elsewhere classified
CPT/HCPCS: 71046; 71275; 80048; 82550; 82553; 84484; 85025; 85652; 86140; 93005; 96374; 96375; 99284; J2930; J3360; Q9967

== ENCOUNTER → 2021-08-11 | Outpatient (REF) | payer MEDICARE, MEDICAID ==
[~2021-08-11] MED LIST changes: +BENZ200C70 PO; +METH-1165 PO
== END ==
LOC: M SFHCPLAZ 17:04
PROVIDERS: ATTEND Family Medicine
DX: R23.4 Changes in skin texture (principal); I78.1 Nevus, non-neoplastic; L85.8 Other specified epidermal thickening; R21 Rash and other nonspecific skin eruption
CPT/HCPCS: 11104; 88300; G0463

== ENCOUNTER → 2021-08-30 | Outpatient (CLI) | payer MEDICARE, MEDICAID ==
[2021-08-30 14:31] LABS: BLOOD UREA NITROGEN 25 MG/DL (7-18); CALCIUM LEVEL 9.5 MG/DL (8.8-10.2); CARBON DIOXIDE LEVEL 29 MEQ/L (21-32); CHLORIDE LEVEL 105 MEQ/L (98-107); CHOLESTEROL LEVEL 185 MG/DL (<200); CHOLESTEROL RISK RATIO 3.627 (<5); CREATININE FOR GFR 0.93 MG/DL (0.55-1.30); GLOMERULAR FILTRATION RATE > 60.0 (>45); GLUCOSE, FASTING 87 MG/DL (70-100); HDL CHOLESTEROL 51 MG/DL (>40); LDL CHOLESTEROL 96 MG/DL (<100); NON-HDL-C 134 MG/DL; POTASSIUM SERUM 4.7 MEQ/L (3.5-5.1); SODIUM LEVEL 140 MEQ/L (136-145); TRIGLYCERIDES LEVEL 191 MG/DL (<150)
== END ==
LOC: M LAB 12:31
PROVIDERS: ATTEND Physician Assistant
DX: I48.0 Paroxysmal atrial fibrillation (principal); E78.5 Hyperlipidemia, unspecified

== ENCOUNTER → 2021-08-30 | Outpatient (CLI) | payer MEDICARE, MEDICAID | LOC: M RAD 12:26 | PROVIDERS: ATTEND Nurse Practitioner Women's Health | DX: N28.1 Cyst of kidney, acquired (principal); R10.9 Unspecified abdominal pain; N20.0 Calculus of kidney; I48.0 Paroxysmal atrial fibrillation; E78.5 Hyperlipidemia, unspecified ==

== ENCOUNTER → 2021-10-06 | Outpatient (CLI) | payer MEDICARE | LOC: M PAIN 10:45 | PROVIDERS: ATTEND Anesthesiology | DX: M51.16 Intervertebral disc disorders with radiculopathy, lumbar region (principal); M48.061 Spinal stenosis, lumbar region without neurogenic claudication; G89.29 Other chronic pain; G47.30 Sleep apnea, unspecified; Z86.14 Personal history of Methicillin resistant Staphylococcus aureus infection; E66.01 Morbid (severe) obesity due to excess calories; Z68.44 Body mass index [BMI] 60.0-69.9, adult; Z79.01 Long term (current) use of anticoagulants; Z79.899 Other long term (current) drug therapy ==

== ENCOUNTER → 2021-10-09 | Outpatient (CLI) | payer MEDICARE ==
[2021-10-09 11:51] LABS: HEMATOCRIT 42.1 % (36.0-47.0); HEMOGLOBIN 12.9 g/dl (12.0-15.5); MEAN CORPUSCULAR HEMOGLOBIN 30.1 pg (27.0-33.0); MEAN CORPUSCULAR HGB CONC 30.6 g/dl (32.0-36.5); MEAN CORPUSCULAR VOLUME 98.1 fl (80.0-96.0); PLATELET COUNT, AUTOMATED 158 10^3/uL (150-450); RED BLOOD COUNT 4.29 10^6/uL (4.00-5.40); WHITE BLOOD COUNT 5.4 10^3/uL (4.0-10.0)
[2021-10-09 12:01] LABS: INR 1.03; PROTHROMBIN TIME 13.9 SECONDS (12.7-14.5)
[2021-10-09 12:02] LABS: PARTIAL THROMBOPLASTIN TIME 30.8 SECONDS (25.9-37.0)
[2021-10-09 12:21] LABS: CALCIUM LEVEL 9.2 MG/DL (8.8-10.2); CREATININE FOR GFR 1.03 MG/DL (0.55-1.30); GLOMERULAR FILTRATION RATE 57.3 (>45)
== END ==
LOC: M LAB 10:36
PROVIDERS: ATTEND Family Medicine
DX: Z01.818 Encounter for other preprocedural examination (principal); Z79.01 Long term (current) use of anticoagulants

== ENCOUNTER 2021-10-17 14:40 | Observation (INO) | payer MEDICARE ==
[~2021-10-17] VITALS: Ht 162.6 cm; Wt 173.8 kg
[2021-10-17] MEDS ORDERED: B-2100TA PO (15:19)
[2021-10-17] MEDS ORDERED: GRAL600T PO (15:19)
[2021-10-17] MEDS ORDERED: FURO20TA2 PO (15:19)
[2021-10-17] MEDS ORDERED: COLA100C5 PO (15:19)
[2021-10-17] MEDS ORDERED: FROV2.5T6 (15:19)
[2021-10-17] MEDS ORDERED: OXYC-517 PO (15:19)
[2021-10-17] MEDS ORDERED: DIVA500T94 PO (15:19)
[2021-10-17] MEDS ORDERED: QC A650T3 PO (15:19)
[2021-10-17] MEDS ORDERED: CALCTAB41 PO (15:19)
[2021-10-17] MEDS ORDERED: ELIQ5TAB PO (15:19)
[2021-10-17 15:56] LABS: BASO % 0.5 % (0.0-1.0); EOS # 0.1 10^3/uL (0.0-0.5); EOS % 2.5 % (0.0-3.0); HEMATOCRIT 40.7 % (36.0-47.0); HEMOGLOBIN 12.4 g/dl (12.0-15.5); LYMPH # 1.4 10^3/uL (1.5-5.0); LYMPH % 24.7 % (24.0-44.0); MEAN CORPUSCULAR HEMOGLOBIN 30.4 pg (27.0-33.0); MEAN CORPUSCULAR HGB CONC 30.5 g/dl (32.0-36.5); MEAN CORPUSCULAR VOLUME 99.8 fl (80.0-96.0); MONO # 0.5 10^3/uL (0.0-0.8); MONO % 9.4 % (2.0-8.0); NEUTROPHILS # 3.5 10^3/uL (1.5-8.5); NEUTROPHILS % 62.2 % (36.0-66.0); PLATELET COUNT, AUTOMATED 145 10^3/uL (150-450); RED BLOOD COUNT 4.08 10^6/uL (4.00-5.40); WHITE BLOOD COUNT 5.6 10^3/uL (4.0-10.0)
[2021-10-17 15:57] LABS: ABG BASE EXCESS 6.8 (-2.0-2.0); ABG HCO3 31.8 MEQ/L (22.0-26.0); ABG O2 SATURATION 94.3 % (95.0-99.0); ABG PARTIAL PRESSURE CO2 46.9 mmHg (35.0-45.0); ABG PARTIAL PRESSURE O2 69.6 mmHg (75.0-100.0); ABG STANDARD HCO3 30.6 MEQ/L (22.0-26.0); ABG TOTAL CO2 33.2 MEQ/L (23.0-31.0); ABG pH (ARTERIAL) 7.449 UNITS (7.350-7.450)
[2021-10-17 16:18] LABS: CK-MB VALUE MASS 1.9 NG/ML (<3.6); MB/CK RELATIVE INDEX 2.44 (< OR =4)
[2021-10-17 16:25] LABS: ALBUMIN 3.3 GM/DL (3.2-5.2); ALT/SGPT 21 U/L (12-78); BILIRUBIN,DIRECT 0.1 MG/DL (0.0-0.2); BILIRUBIN,TOTAL 0.3 MG/DL (0.2-1.0); BLOOD UREA NITROGEN 17 MG/DL (7-18); C REACTIVE PROTEIN QUANTITATIV 0.99 MG/DL (0.00-0.30); CALCIUM LEVEL 8.9 MG/DL (8.8-10.2); CARBON DIOXIDE LEVEL 31 MEQ/L (21-32); CHLORIDE LEVEL 105 MEQ/L (98-107); CREATININE FOR GFR 0.82 MG/DL (0.55-1.30); FREE T4 1.12 NG/DL (0.76-1.46); GLOMERULAR FILTRATION RATE > 60.0 (>45); GLUCOSE, FASTING 92 MG/DL (70-100); LIPASE 62 U/L (73-393); NT-PRO BNP 367 PG/ML (<125); POTASSIUM SERUM 4.3 MEQ/L (3.5-5.1); SODIUM LEVEL 139 MEQ/L (136-145); THYROID STIMULATING HORMONE 0.783 uIU/ML (0.358-3.740); TOTAL PROTEIN 6.8 GM/DL (6.4-8.2)
[2021-10-17] MEDS ORDERED: ISOVUE-370 76% 100ML VIAL As Ordered ONE (16:48)
[2021-10-17 17:35] LABS: CK-MB VALUE MASS 1.7 NG/ML (<3.6); MB/CK RELATIVE INDEX 2.15 (< OR =4)
[2021-10-17 19:32] LABS: MAGNESIUM LEVEL 2.3 MG/DL (1.8-2.4)
[2021-10-17] MEDS ORDERED: CEPACOL LOZENGE PO PRN (20:45)
[2021-10-17] MEDS ORDERED: LEVALBUTEROL 1.25 MG/0.5 ML CONCENTRATE NEB INH PRN (20:45)
[2021-10-17] MEDS ORDERED: BENZONATATE 100MG CAPSULE PO ONE (21:00)
[2021-10-17] MEDS ORDERED: FUROSEMIDE 20MG/2ML VIAL (J1940) IV ONE (21:00)
[2021-10-17 21:29] LABS: PHOSPHORUS LEVEL 2.8 MG/DL (2.5-4.9)
[2021-10-17] MEDS ORDERED: ROPI5TAB3 PO (21:35)
[2021-10-17] MEDS ORDERED: B-12100021 PO (21:35)
[2021-10-17] MEDS ORDERED: HOME MED LIST COMPLETE! XX SCH (21:40)
[2021-10-18] MEDS: ACETAMINOPHEN TAB 650MG DOSE (2X325MG) PO PRN ×3 (01:32→23:46)
[2021-10-18] MEDS: diphenhydrAMINE 25MG CAP PO PRN ×3 (02:00→23:46)
[2021-10-18] MEDS ORDERED: oxyCODONE 5MG TAB PO PRN (06:15)
[2021-10-18] MEDS ORDERED: NYSTATIN 100,000 UNITS/GM TOPICAL PWD 15 GM TOP PRN (06:15)
[2021-10-18 06:45] LABS: VENOUS HCO3 27.6 MEQ/L (23.0-27.0); VENOUS O2 SATURATION 87.6 % (60.0-80.0); VENOUS PARTIAL PRESSURE CO2 52.3 mmHg (38.0-50.0); VENOUS PARTIAL PRESSURE O2 56.5 mmHg (30.0-50.0); VENOUS STANDARD HCO3 25.2 MEQ/L; VENOUS TOTAL CO2 29.2 MEQ/L (24.0-28.0)
[2021-10-18 07:12] LABS: BASO % 0.6 % (0.0-1.0); EOS # 0.2 10^3/uL (0.0-0.5); HEMATOCRIT 38.9 % (36.0-47.0); HEMOGLOBIN 11.9 g/dl (12.0-15.5); LYMPH # 1.6 10^3/uL (1.5-5.0); LYMPH % 30.6 % (24.0-44.0); MEAN CORPUSCULAR HEMOGLOBIN 29.8 pg (27.0-33.0); MEAN CORPUSCULAR HGB CONC 30.6 g/dl (32.0-36.5); MEAN CORPUSCULAR VOLUME 97.3 fl (80.0-96.0); MONO # 0.7 10^3/uL (0.0-0.8); MONO % 12.9 % (2.0-8.0); NEUTROPHILS # 2.8 10^3/uL (1.5-8.5); NEUTROPHILS % 52.5 % (36.0-66.0); PLATELET COUNT, AUTOMATED 140 10^3/uL (150-450); WHITE BLOOD COUNT 5.3 10^3/uL (4.0-10.0)
[2021-10-18 07:24] LABS: BLOOD UREA NITROGEN 19 MG/DL (7-18); CARBON DIOXIDE LEVEL 33 MEQ/L (21-32); CHLORIDE LEVEL 103 MEQ/L (98-107); GLOMERULAR FILTRATION RATE > 60.0 (>45); GLUCOSE, FASTING 99 MG/DL (70-100); POTASSIUM SERUM 4.2 MEQ/L (3.5-5.1); SODIUM LEVEL 140 MEQ/L (136-145)
[2021-10-18 08:32] LABS: INR 0.99; PROTHROMBIN TIME 13.5 SECONDS (12.7-14.5)
[2021-10-18 08:33] LABS: PARTIAL THROMBOPLASTIN TIME 29.6 SECONDS (25.9-37.0)
[2021-10-18] MEDS ORDERED: FUROSEMIDE 20MG/2ML VIAL (J1940) IV SCH (09:00)
[2021-10-18] MEDS: MULTIVITAMINS/MINERALS THERAP 1 TAB PO SCH (09:49)
[2021-10-18] MEDS: DOCUSATE SODIUM 100MG CAPSULE PO SCH ×2 (09:49→21:20)
[2021-10-18] MEDS: ESCITALOPRAM OXALATE 10 MG TAB (LEXAPRO) PO SCH (09:49)
[2021-10-18] MEDS: oxyBUTYnin *DITROPAN XL* 5 MG TABCR PO SCH (09:49)
[2021-10-18] MEDS: APIXABAN 5 MG TAB (ELIQUIS) PO SCH ×2 (09:50→21:20)
[2021-10-18] MEDS: CALCIUM/VITAMIN D 500 MG TAB PO SCH ×2 (09:50→21:20)
[2021-10-18 09:59] LABS: HEMOGLOBIN A1c 5.2 %
[2021-10-18] MEDS ORDERED: SODIUM CHLORIDE 0.9% 1000ML IV ONE (10:05)
[2021-10-18 11:07] LABS: VITAMIN B12 LEVEL 1527 PG/ML (247-911)
[2021-10-18] MEDS ORDERED: rOPINIRole 1MG TAB PO SCH (21:00)
[2021-10-18] MEDS ORDERED: MAGNESIUM OXIDE 400MG TAB (MAG-OX) PO SCH (21:00)
[2021-10-18] MEDS ORDERED: DIVALPROEX 500 MG TAB PO SCH (21:00)
[2021-10-18 22:00] VITALS: BP 106/58
[2021-10-19 02:00] VITALS: BP 110/60
[2021-10-19 05:58] LABS: HEMATOCRIT 37.5 % (36.0-47.0); HEMOGLOBIN 11.7 g/dl (12.0-15.5); MEAN CORPUSCULAR HEMOGLOBIN 29.8 pg (27.0-33.0); MEAN CORPUSCULAR HGB CONC 31.2 g/dl (32.0-36.5); MEAN CORPUSCULAR VOLUME 95.7 fl (80.0-96.0); PLATELET COUNT, AUTOMATED 144 10^3/uL (150-450); RED BLOOD COUNT 3.92 10^6/uL (4.00-5.40); WHITE BLOOD COUNT 5.7 10^3/uL (4.0-10.0)
[2021-10-19 06:00] VITALS: BP 112/66
[2021-10-19 06:19] LABS: BLOOD UREA NITROGEN 21 MG/DL (7-18); CALCIUM LEVEL 9.5 MG/DL (8.8-10.2); CARBON DIOXIDE LEVEL 31 MEQ/L (21-32); CHLORIDE LEVEL 106 MEQ/L (98-107); GLOMERULAR FILTRATION RATE > 60.0 (>45); GLUCOSE, FASTING 102 MG/DL (70-100); POTASSIUM SERUM 4.4 MEQ/L (3.5-5.1); SODIUM LEVEL 141 MEQ/L (136-145)
[2021-10-19] MEDS: ACETAMINOPHEN TAB 650MG DOSE (2X325MG) PO PRN (07:00)
[2021-10-19] MEDS: oxyBUTYnin *DITROPAN XL* 5 MG TABCR PO SCH (08:56)
[2021-10-19] MEDS: CALCIUM/VITAMIN D 500 MG TAB PO SCH (08:56)
[2021-10-19] MEDS: DOCUSATE SODIUM 100MG CAPSULE PO SCH (08:56)
[2021-10-19] MEDS: ESCITALOPRAM OXALATE 10 MG TAB (LEXAPRO) PO SCH (08:57)
[2021-10-19] MEDS: MULTIVITAMINS/MINERALS THERAP 1 TAB PO SCH (08:57)
[2021-10-19] MEDS: APIXABAN 5 MG TAB (ELIQUIS) PO SCH (08:57)
[2021-10-19 10:00] VITALS: BP 116/72
[2021-10-19 14:00] VITALS: BP 144/90
== END 2021-10-19 15:50 | disposition home or self-care (01) ==
LOC: M ED 14:40 → M ED INP 14:41 → ENRESERV 10-18 13:17 → M MSPAV 10-18 15:43
PROVIDERS: ADMIT Family Medicine; ATTEND Internal Medicine
DX: R06.00 Dyspnea, unspecified (principal); I27.20 Pulmonary hypertension, unspecified; I50.9 Heart failure, unspecified; I35.0 Nonrheumatic aortic (valve) stenosis; E66.01 Morbid (severe) obesity due to excess calories; F41.9 Anxiety disorder, unspecified; F32.A Depression, unspecified; Z86.14 Personal history of Methicillin resistant Staphylococcus aureus infection; D63.8 Anemia in other chronic diseases classified elsewhere; G89.29 Other chronic pain; M65.4 Radial styloid tenosynovitis [de Quervain]; Z86.32 Personal history of gestational diabetes; I11.9 Hypertensive heart disease without heart failure; I48.0 Paroxysmal atrial fibrillation; Z86.711 Personal history of pulmonary embolism; Z79.01 Long term (current) use of anticoagulants; G47.33 Obstructive sleep apnea (adult) (pediatric); E11.9 Type 2 diabetes mellitus without complications; R60.0 Localized edema; Z79.899 Other long term (current) drug therapy; Z88.0 Allergy status to penicillin; Z88.1 Allergy status to other antibiotic agents; Z88.2 Allergy status to sulfonamides; Z88.8 Allergy status to other drugs, medicaments and biological substances
CPT/HCPCS: 36415; 36600; 71045; 71275; 80048; 80076; 82550; 82553; 82607; 82803; 83036; 83690; 83735; 83880; 84100; 84145; 84439; 84443; 84484; 85025; 85027; 85610; 85652; 85730; 86140; 87040; 87486; 87581; 87633; 87798; 93005; 93041; 93306; 94760; 96374; 96375; 99285; G0378; J1940; Q9967

== ENCOUNTER → 2021-11-12 | Outpatient (CLI) | payer MEDICARE ==
[~2021-11-12] MED LIST changes: +B-12100021 PO; +B-2100TA PO; +CALCTAB41 PO; +COLA100C5 PO; +DIVA500T94 PO; +FROV2.5T6; +FURO20TA2 PO; +FURO40TA2 PO; +GRAL600T PO; +LIDO1PAD TOP; +NARA2.5T PO; +OXYC-517 PO; +PERCOCET PO; +QC A650T3 PO; +ROPI5TAB3 PO; +TRAM50TA2 PO; +VENL37.598 PO
== END ==
LOC: M PAIN 08:45
PROVIDERS: ATTEND Anesthesiology
DX: M51.16 Intervertebral disc disorders with radiculopathy, lumbar region (principal); G89.29 Other chronic pain; Z86.14 Personal history of Methicillin resistant Staphylococcus aureus infection; Z86.59 Personal history of other mental and behavioral disorders; Z86.711 Personal history of pulmonary embolism; Z96.653 Presence of artificial knee joint, bilateral; Z96.611 Presence of right artificial shoulder joint; Z88.0 Allergy status to penicillin; Z88.1 Allergy status to other antibiotic agents; Z88.5 Allergy status to narcotic agent; Z88.8 Allergy status to other drugs, medicaments and biological substances; Z91.09 Other allergy status, other than to drugs and biological substances; Z79.01 Long term (current) use of anticoagulants; Z79.899 Other long term (current) drug therapy

== ENCOUNTER → 2021-12-03 | Outpatient (CLI) | payer MEDICARE, MEDICAID ==
[2021-12-03 13:59] LABS: HEMATOCRIT 40.1 % (36.0-47.0); HEMOGLOBIN 12.5 g/dl (12.0-15.5); MEAN CORPUSCULAR HEMOGLOBIN 29.8 pg (27.0-33.0); MEAN CORPUSCULAR HGB CONC 31.2 g/dl (32.0-36.5); MEAN CORPUSCULAR VOLUME 95.5 fl (80.0-96.0); PLATELET COUNT, AUTOMATED 164 10^3/uL (150-450); WHITE BLOOD COUNT 6.1 10^3/uL (4.0-10.0)
[2021-12-03 17:19] LABS: CALCIUM LEVEL 9.8 MG/DL (8.8-10.2); CREATININE FOR GFR 1.08 MG/DL (0.55-1.30); POTASSIUM SERUM 4.7 MEQ/L (3.5-5.1)
== END ==
LOC: M LAB 13:04
PROVIDERS: ATTEND Urology
DX: Z01.812 Encounter for preprocedural laboratory examination (principal); N20.0 Calculus of kidney

== ENCOUNTER 2021-12-08 19:00 | Emergency (ER) | payer MEDICARE, MEDICAID ==
[~2021-12-08] VITALS: Ht 162.6 cm; Wt 169.6 kg
[2021-12-08 21:24] LABS: BASO % 0.3 % (0.0-1.0); EOS # 0.1 10^3/uL (0.0-0.5); EOS % 0.8 % (0.0-3.0); HEMOGLOBIN 12.7 g/dl (12.0-15.5); LYMPH # 1.8 10^3/uL (1.5-5.0); LYMPH % 20.4 % (24.0-44.0); MEAN CORPUSCULAR HEMOGLOBIN 29.5 pg (27.0-33.0); MEAN CORPUSCULAR VOLUME 95.1 fl (80.0-96.0); MONO % 11.5 % (2.0-8.0); NEUTROPHILS # 5.9 10^3/uL (1.5-8.5); NEUTROPHILS % 66.6 % (36.0-66.0); PLATELET COUNT, AUTOMATED 186 10^3/uL (150-450); RED BLOOD COUNT 4.31 10^6/uL (4.00-5.40); WHITE BLOOD COUNT 8.9 10^3/uL (4.0-10.0)
[2021-12-08 22:03] LABS: ALBUMIN 3.2 GM/DL (3.2-5.2); ALT/SGPT 24 U/L (12-78); BILIRUBIN,DIRECT < 0.1 MG/DL (0.0-0.2); BILIRUBIN,TOTAL 0.4 MG/DL (0.2-1.0); BLOOD UREA NITROGEN 19 MG/DL (7-18); CALCIUM LEVEL 9.5 MG/DL (8.8-10.2); CARBON DIOXIDE LEVEL 28 MEQ/L (21-32); CHLORIDE LEVEL 104 MEQ/L (98-107); CREATININE FOR GFR 1.04 MG/DL (0.55-1.30); GLOMERULAR FILTRATION RATE 56.4 (>45); GLUCOSE, FASTING 123 MG/DL (70-100); LIPASE 69 U/L (73-393); POTASSIUM SERUM 4.8 MEQ/L (3.5-5.1); SODIUM LEVEL 141 MEQ/L (136-145); TOTAL PROTEIN 7.2 GM/DL (6.4-8.2)
[2021-12-08] MEDS ORDERED: NS 1,000 ML IV ONE (22:30)
[2021-12-08] MEDS ORDERED: MORPHINE 4 MG/ML 1ML VIAL/SYRINGE IV ONE ×2 (22:30→23:55)
[2021-12-08] MEDS ORDERED: diphenhydrAMINE 50MG/ML VIAL (J1200) IV STA (22:30)
[2021-12-09] MEDS ORDERED: NS 1,000 ML IV ONE (00:40)
[2021-12-09] MEDS ORDERED: MORPHINE 4 MG/ML 1ML VIAL/SYRINGE IV PRN (03:45)
[2021-12-09 04:53] LABS: RSV AMPLIFICATION NEGATIVE (NEGATIVE)
[2021-12-09 06:30] VITALS: BP 127/69
[2021-12-09] MEDS ORDERED: PERC5TAB12 PO (06:34)
[2021-12-09] MEDS ORDERED: OXYCODONE/APAP 5MG/325MG(HOME DOSE PACK) PO ONE (06:35)
== END 2021-12-09 07:05 | disposition home or self-care (01) ==
LOC: M ED 19:00
DX: R10.9 Unspecified abdominal pain (principal); Z96.0 Presence of urogenital implants; N13.2 Hydronephrosis with renal and ureteral calculous obstruction; N20.0 Calculus of kidney; N39.0 Urinary tract infection, site not specified; E11.9 Type 2 diabetes mellitus without complications; I10 Essential (primary) hypertension; Z87.442 Personal history of urinary calculi; Z86.711 Personal history of pulmonary embolism; G43.909 Migraine, unspecified, not intractable, without status migrainosus; F43.10 Post-traumatic stress disorder, unspecified; F32.9 Major depressive disorder, single episode, unspecified; Z95.4 Presence of other heart-valve replacement; Z98.84 Bariatric surgery status; Z79.01 Long term (current) use of anticoagulants; Z79.899 Other long term (current) drug therapy; Z88.0 Allergy status to penicillin; Z88.2 Allergy status to sulfonamides; Z88.1 Allergy status to other antibiotic agents; Z88.8 Allergy status to other drugs, medicaments and biological substances; Z91.89 Other specified personal risk factors, not elsewhere classified
CPT/HCPCS: 36415; 74176; 76775; 80048; 80076; 81001; 83690; 85025; 87086; 87631; 96361; 96374; 96375; 96376; 99284; J1200; J2270

== ENCOUNTER → 2021-12-08 | Outpatient (CLI) | payer MEDICARE, MEDICAID | LOC: M LAB 11:17 | PROVIDERS: ATTEND Urology | DX: Z01.818 Encounter for other preprocedural examination (principal); N20.0 Calculus of kidney; N39.0 Urinary tract infection, site not specified ==

== ENCOUNTER → 2021-12-10 | Outpatient (CLI) | payer MEDICARE | LOC: M PAIN 11:15 | PROVIDERS: ATTEND Anesthesiology | DX: M48.062 Spinal stenosis, lumbar region with neurogenic claudication (principal); M51.16 Intervertebral disc disorders with radiculopathy, lumbar region; G89.29 Other chronic pain; Z86.14 Personal history of Methicillin resistant Staphylococcus aureus infection; Z86.59 Personal history of other mental and behavioral disorders; Z96.611 Presence of right artificial shoulder joint; Z96.653 Presence of artificial knee joint, bilateral; Z98.84 Bariatric surgery status; Z88.0 Allergy status to penicillin; Z88.1 Allergy status to other antibiotic agents; Z88.5 Allergy status to narcotic agent; Z88.8 Allergy status to other drugs, medicaments and biological substances; Z91.09 Other allergy status, other than to drugs and biological substances; Z79.01 Long term (current) use of anticoagulants; Z79.899 Other long term (current) drug therapy ==

== ENCOUNTER → 2021-12-12 | Outpatient (CLI) | payer MEDICARE, MEDICAID | LOC: M LABSMTC 11:34 | PROVIDERS: ATTEND Anesthesiology | DX: Z20.822 Contact with and (suspected) exposure to COVID-19 (principal) ==

== ENCOUNTER 2021-12-17 06:58 | Day surgery (SDC) | payer MEDICARE, MEDICAID ==
[~2021-12-17] VITALS: Ht 162.6 cm; Wt 172.5 kg
[~2021-12-17 06:58] MED LIST changes: +ceFAZolin SOD 1 GM in D5W MINI-BAG PLUS 50 ML IV ONE; +ceFAZolin SOD 2 GM in IV 1 EA IV ONE
[2021-12-17] MEDS ORDERED: LR 1,000 ML IV SCH ×2 (07:30→10:00)
[2021-12-17] MEDS ORDERED: ISOVUE-300 61% 50ML VIAL As Ordered ONE (08:18)
[2021-12-17] MEDS ORDERED: LIDOCAINE 2% 100MG/5ML SDV (FOR ANES.) As Ordered ONE (08:22)
[2021-12-17] MEDS ORDERED: propofoL 200 MG/20 ML VIAL As Ordered ONE (08:22)
[2021-12-17] MEDS ORDERED: fentaNYL 100 MCG/2 ML INJECTION As Ordered ONE (08:23)
[2021-12-17] MEDS ORDERED: MIDAZOLAM INJ 2MG/2ML VIAL (J2250 PER 1MG) As Ordered ONE (08:23)
[2021-12-17] MEDS ORDERED: ROCURONIUM BROMIDE 50 MG/5 ML VIAL As Ordered ONE (08:36)
[2021-12-17] MEDS ORDERED: ONDANSETRON 4MG 2ML VIAL As Ordered ONE (08:53)
[2021-12-17] MEDS ORDERED: dexameTHASONE 4 MG/ML 1ML VIAL (J1100 PER 1MG) As Ordered ONE (08:53)
[2021-12-17] MEDS ORDERED: ACETAMINOPHEN 1000MG 100ML IV BTL (OFIRMEV) (J0131 PER 10MG) As Ordered ONE (08:57)
[2021-12-17] MEDS ORDERED: ePHEDrine SULFATE 25 MG/5 ML(5MG/ML) SYRINGE As Ordered ONE (09:06)
[2021-12-17] MEDS ORDERED: PERCOCET 5MG/325MG TAB PO PRN ×2 (10:00→10:50)
[2021-12-17] MEDS ORDERED: ONDANSETRON 4MG 2ML VIAL IV PRN (10:00)
[2021-12-17] MEDS ORDERED: diphenhydrAMINE 50MG/ML VIAL (J1200) IV PRN (10:20)
[2021-12-17] MEDS: MORPHINE 2 MG/ML 1ML VIAL IV PRN ×5 (10:30→11:19)
[2021-12-17] MEDS: fentaNYL 100 MCG/2 ML INJECTION IV PRN ×2 (11:22→11:31)
[2021-12-17 12:30] VITALS: BP 138/62
== END 2021-12-17 12:44 | disposition home or self-care (01) ==
LOC: M SDC 06:58
PROVIDERS: ATTEND Urology
DX: N20.0 Calculus of kidney (principal); I48.91 Unspecified atrial fibrillation; Z98.84 Bariatric surgery status; E66.01 Morbid (severe) obesity due to excess calories; G47.33 Obstructive sleep apnea (adult) (pediatric); G43.909 Migraine, unspecified, not intractable, without status migrainosus; F41.9 Anxiety disorder, unspecified; F32.A Depression, unspecified; F43.10 Post-traumatic stress disorder, unspecified; Z86.711 Personal history of pulmonary embolism; Z95.4 Presence of other heart-valve replacement; Z79.899 Other long term (current) drug therapy; Z79.01 Long term (current) use of anticoagulants; Z88.0 Allergy status to penicillin; Z88.2 Allergy status to sulfonamides; Z88.1 Allergy status to other antibiotic agents; Z88.8 Allergy status to other drugs, medicaments and biological substances

== ENCOUNTER 2021-12-18 00:45 | Inpatient (IN) | payer MEDICARE, MEDICAID ==
[~2021-12-18] VITALS: Ht 162.6 cm; Wt 169.8 kg
[~2021-12-18 00:45] MED LIST changes: -ceFAZolin SOD 1 GM in D5W MINI-BAG PLUS 50 ML IV ONE; -ceFAZolin SOD 2 GM in IV 1 EA IV ONE
[2021-12-18] MEDS ORDERED: ONDANSETRON 4MG 2ML VIAL IV ONE (01:40)
[2021-12-18] MEDS ORDERED: MORPHINE 4 MG/ML 1ML VIAL/SYRINGE IV ONE ×2 (01:40→04:30)
[2021-12-18] MEDS ORDERED: NS 500 ML IV ONE (01:40)
[2021-12-18] MEDS ORDERED: diphenhydrAMINE 50MG/ML VIAL (J1200) IV ONE (02:00)
[2021-12-18 02:11] LABS: BASO % 0.1 % (0.0-1.0); EOS % 0.1 % (0.0-3.0); LYMPH # 1.4 10^3/uL (1.5-5.0); LYMPH % 18.6 % (24.0-44.0); MEAN CORPUSCULAR HEMOGLOBIN 29.3 pg (27.0-33.0); MEAN CORPUSCULAR HGB CONC 30.8 g/dl (32.0-36.5); MEAN CORPUSCULAR VOLUME 95.4 fl (80.0-96.0); MONO # 0.6 10^3/uL (0.0-0.8); MONO % 8.3 % (2.0-8.0); NEUTROPHILS # 5.5 10^3/uL (1.5-8.5); NEUTROPHILS % 72.2 % (36.0-66.0); PLATELET COUNT, AUTOMATED 220 10^3/uL (150-450); RED BLOOD COUNT 4.09 10^6/uL (4.00-5.40); WHITE BLOOD COUNT 7.6 10^3/uL (4.0-10.0)
[2021-12-18 02:49] LABS: ALBUMIN 3.1 GM/DL (3.2-5.2); BILIRUBIN,DIRECT 0.1 MG/DL (0.0-0.2); BILIRUBIN,TOTAL 0.2 MG/DL (0.2-1.0); CALCIUM LEVEL 9.4 MG/DL (8.8-10.2); CREATININE FOR GFR 1.01 MG/DL (0.55-1.30); GLOMERULAR FILTRATION RATE 58.4 (>45); POTASSIUM SERUM 5.3 MEQ/L (3.5-5.1); TOTAL PROTEIN 7.2 GM/DL (6.4-8.2)
[2021-12-18] MEDS ORDERED: diphenhydrAMINE 50MG/ML VIAL (J1200) IV STA (04:29)
[2021-12-18] MEDS ORDERED: SOD POLYSTYRENE SULFONATE SUSP 15GM 60ML UD PO ONE (05:25)
[2021-12-18] MEDS: CIPROFLOXACIN 500MG TABLET PO SCH ×2 (06:00→16:29)
[2021-12-18 07:18] LABS: RSV AMPLIFICATION NEGATIVE (NEGATIVE)
[2021-12-18] MEDS ORDERED: HOME MED LIST COMPLETE! XX SCH (07:55)
[2021-12-18] MEDS ORDERED: DOCUSATE SODIUM 100MG CAPSULE PO PRN (08:15)
[2021-12-18] MEDS ORDERED: ANEXSIA, NORCO 7.5MG/325MG TABLET(HYDROCODONE/APAP) PO PRN (08:15)
[2021-12-18] MEDS ORDERED: NYSTATIN 100,000 UNITS/GM TOPICAL PWD 15 GM TOP PRN (08:15)
[2021-12-18] MEDS ORDERED: VENLAFAXINE **XR** 37.5 MG CAPSULE PO SCH (09:00)
[2021-12-18] MEDS ORDERED: BELLADONNA 16.2mg/OPIUM 60mg 1 EA SUPP PR PRN (09:55)
[2021-12-18] MEDS: ACETAMINOPHEN TAB 650MG DOSE (2X325MG) PO PRN ×2 (11:01→16:28)
[2021-12-18] MEDS: oxyCODONE 5MG TAB PO PRN ×2 (11:01→16:26)
[2021-12-18] MEDS: APIXABAN 5 MG TAB (ELIQUIS) PO SCH ×2 (11:02→21:04)
[2021-12-18] MEDS: MULTIVITAMINS/MINERALS THERAP 1 TAB PO SCH (11:02)
[2021-12-18] MEDS: PHENAZOPYRIDINE 100 MG TAB PO SCH ×3 (11:02→21:03)
[2021-12-18] MEDS: GABAPENTIN 300 MG CAP PO SCH ×2 (11:02→21:03)
[2021-12-18] MEDS: oxyBUTYnin *DITROPAN XL* 5 MG TABCR PO SCH (11:03)
[2021-12-18] MEDS: FUROSEMIDE 40 MG TAB PO SCH (11:03)
[2021-12-18 14:00] VITALS: BP 140/72
[2021-12-18] MEDS: rOPINIRole 1MG TAB PO SCH (21:02)
[2021-12-18] MEDS: MAGNESIUM OXIDE 400MG TAB (MAG-OX) PO SCH (21:02)
[2021-12-18] MEDS: rOPINIRole 2MG TAB PO SCH (21:03)
[2021-12-18] MEDS: DIVALPROEX 500 MG TAB PO SCH (21:04)
[2021-12-18] MEDS: PERCOCET 5MG/325MG TAB PO PRN (21:19)
[2021-12-18] MEDS ORDERED: MAALOX 30 ML SUSP *UDC PO PRN (21:35)
[2021-12-18 22:00] VITALS: BP 140/63
[2021-12-19] MEDS: oxyCODONE 5MG TAB PO PRN ×3 (03:51→20:59)
[2021-12-19] MEDS: CIPROFLOXACIN 500MG TABLET PO SCH ×2 (05:28→16:36)
[2021-12-19 06:00] VITALS: BP 102/52
[2021-12-19] MEDS: PHENAZOPYRIDINE 100 MG TAB PO SCH ×3 (08:26→20:57)
[2021-12-19] MEDS: GABAPENTIN 300 MG CAP PO SCH ×2 (08:26→20:58)
[2021-12-19] MEDS: FUROSEMIDE 40 MG TAB PO SCH (08:27)
[2021-12-19] MEDS: PERCOCET 5MG/325MG TAB PO PRN (08:27)
[2021-12-19] MEDS: VENLAFAXINE **XR** 75MG CAPSULE PO SCH (08:27)
[2021-12-19] MEDS: oxyBUTYnin *DITROPAN XL* 5 MG TABCR PO SCH (08:27)
[2021-12-19] MEDS: MULTIVITAMINS/MINERALS THERAP 1 TAB PO SCH (08:28)
[2021-12-19] MEDS: APIXABAN 5 MG TAB (ELIQUIS) PO SCH ×2 (08:28→20:59)
[2021-12-19 14:00] VITALS: BP 102/75
[2021-12-19] MEDS: BELLADONNA 16.2mg/OPIUM 60mg 1 EA SUPP PR SCH (20:56)
[2021-12-19] MEDS: rOPINIRole 2MG TAB PO SCH (20:57)
[2021-12-19] MEDS: rOPINIRole 1MG TAB PO SCH (20:57)
[2021-12-19] MEDS: MAGNESIUM OXIDE 400MG TAB (MAG-OX) PO SCH (20:58)
[2021-12-19] MEDS: DIVALPROEX 500 MG TAB PO SCH (20:58)
[2021-12-19] MEDS ORDERED: BELLADONNA 16.2mg/OPIUM 60mg 1 EA SUPP PR PRN (21:00)
[2021-12-19 22:00] VITALS: BP 105/73
[2021-12-20] MEDS: PERCOCET 5MG/325MG TAB PO PRN ×2 (01:21→13:05)
[2021-12-20] MEDS: CIPROFLOXACIN 500MG TABLET PO SCH ×2 (05:16→18:00)
[2021-12-20] MEDS: oxyCODONE 5MG TAB PO PRN ×2 (05:16→21:21)
[2021-12-20 06:00] VITALS: BP 108/71
[2021-12-20] MEDS ORDERED: METOCLOPRAMIDE INJ 10MG/2ML VIAL (J2765 PER 1) IV ONE (06:20)
[2021-12-20 06:47] LABS: HEMATOCRIT 35.4 % (36.0-47.0); HEMOGLOBIN 10.7 g/dl (12.0-15.5); MEAN CORPUSCULAR HEMOGLOBIN 29.1 pg (27.0-33.0); MEAN CORPUSCULAR HGB CONC 30.2 g/dl (32.0-36.5); MEAN CORPUSCULAR VOLUME 96.2 fl (80.0-96.0); PLATELET COUNT, AUTOMATED 167 10^3/uL (150-450); RED BLOOD COUNT 3.68 10^6/uL (4.00-5.40); WHITE BLOOD COUNT 6.1 10^3/uL (4.0-10.0)
[2021-12-20 07:14] LABS: GLOMERULAR FILTRATION RATE 59.1 (>45); POTASSIUM SERUM 4.2 MEQ/L (3.5-5.1)
[2021-12-20] MEDS: GABAPENTIN 300 MG CAP PO SCH ×2 (09:36→20:48)
[2021-12-20] MEDS: FUROSEMIDE 40 MG TAB PO SCH (09:36)
[2021-12-20] MEDS: MULTIVITAMINS/MINERALS THERAP 1 TAB PO SCH (09:36)
[2021-12-20] MEDS: oxyBUTYnin *DITROPAN XL* 5 MG TABCR PO SCH (09:36)
[2021-12-20] MEDS: VENLAFAXINE **XR** 75MG CAPSULE PO SCH (09:36)
[2021-12-20] MEDS: BELLADONNA 16.2mg/OPIUM 60mg 1 EA SUPP PR SCH ×3 (09:37→20:48)
[2021-12-20] MEDS: APIXABAN 5 MG TAB (ELIQUIS) PO SCH ×2 (09:37→20:48)
[2021-12-20 14:00] VITALS: BP 125/69
[2021-12-20] MEDS: MAGNESIUM OXIDE 400MG TAB (MAG-OX) PO SCH (20:48)
[2021-12-20] MEDS: rOPINIRole 1MG TAB PO SCH (20:48)
[2021-12-20] MEDS: DIVALPROEX 500 MG TAB PO SCH (20:49)
[2021-12-20] MEDS: rOPINIRole 2MG TAB PO SCH (20:49)
[2021-12-20] MEDS ORDERED: MIRALAX *UNIT DOSE* 17GM PACKET PO ONE (21:00)
[2021-12-21] MEDS: PERCOCET 5MG/325MG TAB PO PRN (02:00)
[2021-12-21] MEDS: BELLADONNA 16.2mg/OPIUM 60mg 1 EA SUPP PR SCH ×2 (03:31→09:23)
[2021-12-21] MEDS: CIPROFLOXACIN 500MG TABLET PO SCH (05:49)
[2021-12-21] MEDS: oxyCODONE 5MG TAB PO PRN (05:50)
[2021-12-21 06:00] VITALS: BP 110/40
[2021-12-21 06:54] LABS: HEMATOCRIT 34.8 % (36.0-47.0); HEMOGLOBIN 10.7 g/dl (12.0-15.5); MEAN CORPUSCULAR HEMOGLOBIN 29.3 pg (27.0-33.0); MEAN CORPUSCULAR HGB CONC 30.7 g/dl (32.0-36.5); MEAN CORPUSCULAR VOLUME 95.3 fl (80.0-96.0); PLATELET COUNT, AUTOMATED 174 10^3/uL (150-450); RED BLOOD COUNT 3.65 10^6/uL (4.00-5.40)
[2021-12-21 07:25] LABS: CALCIUM LEVEL 8.8 MG/DL (8.8-10.2); CREATININE FOR GFR 0.99 MG/DL (0.55-1.30); GLOMERULAR FILTRATION RATE 59.7 (>45); POTASSIUM SERUM 4.3 MEQ/L (3.5-5.1)
[2021-12-21] MEDS ORDERED: MIRALAX *UNIT DOSE* 17GM PACKET PO SCH (09:00)
[2021-12-21] MEDS: oxyBUTYnin *DITROPAN XL* 5 MG TABCR PO SCH (09:21)
[2021-12-21] MEDS: VENLAFAXINE **XR** 75MG CAPSULE PO SCH (09:21)
[2021-12-21] MEDS: MULTIVITAMINS/MINERALS THERAP 1 TAB PO SCH (09:21)
[2021-12-21] MEDS: APIXABAN 5 MG TAB (ELIQUIS) PO SCH (09:22)
[2021-12-21] MEDS: GABAPENTIN 300 MG CAP PO SCH (09:22)
[2021-12-21] MEDS: FUROSEMIDE 40 MG TAB PO SCH (09:22)
[2021-12-21] MEDS ORDERED: PERC5TAB12 PO (10:29)
[2021-12-21] MEDS ORDERED: CIPR-249 PO (10:29)
[2021-12-21] MEDS ORDERED: MIRA1POW3 PO (10:29)
[2021-12-21] MEDS ORDERED: BOSU PR (10:29)
== END 2021-12-21 13:30 | disposition home or self-care (01) | DRG 940 ==
LOC: M ED 00:45 → M ED INP 08:10 → ENRESERV 10:31 → M MS5PR 11:55 → OBSVTOIN 12-20 20:13
PROVIDERS: ADMIT Internal Medicine; ATTEND Internal Medicine
PROC: 0T788DZ Dilation of Bilateral Ureters with Intraluminal Device, Via Natural or Artificial Opening Endoscopic (ICD-10-PCS; principal; 2021-12-17)
PROC: 0TC18ZZ Extirpation of Matter from Left Kidney, Via Natural or Artificial Opening Endoscopic (ICD-10-PCS; 2021-12-17)
PROC: 0TC08ZZ Extirpation of Matter from Right Kidney, Via Natural or Artificial Opening Endoscopic (ICD-10-PCS; 2021-12-17)
DX: G89.18 Other acute postprocedural pain (principal); Z68.44 Body mass index [BMI] 60.0-69.9, adult; N20.0 Calculus of kidney; I48.0 Paroxysmal atrial fibrillation; E66.01 Morbid (severe) obesity due to excess calories; G47.33 Obstructive sleep apnea (adult) (pediatric); G43.909 Migraine, unspecified, not intractable, without status migrainosus; F41.9 Anxiety disorder, unspecified; G62.9 Polyneuropathy, unspecified; F32.A Depression, unspecified; I10 Essential (primary) hypertension; F43.10 Post-traumatic stress disorder, unspecified; D63.8 Anemia in other chronic diseases classified elsewhere; Z86.711 Personal history of pulmonary embolism; Z95.3 Presence of xenogenic heart valve; Z79.899 Other long term (current) drug therapy; Z98.84 Bariatric surgery status; Z79.01 Long term (current) use of anticoagulants; Z88.0 Allergy status to penicillin; Z88.2 Allergy status to sulfonamides; Z88.1 Allergy status to other antibiotic agents; Z88.8 Allergy status to other drugs, medicaments and biological substances; Z96.653 Presence of artificial knee joint, bilateral; Z86.14 Personal history of Methicillin resistant Staphylococcus aureus infection

== ENCOUNTER → 2022-01-14 | Outpatient (CLI) | payer MEDICARE, MEDICAID ==
[~2022-01-14] MED LIST changes: +BOSU PR; +MIRA1POW3 PO
== END ==
LOC: M PLAIMG 12:23
PROVIDERS: ATTEND Anesthesiology
DX: M48.062 Spinal stenosis, lumbar region with neurogenic claudication (principal); M51.26 Other intervertebral disc displacement, lumbar region; M51.27 Other intervertebral disc displacement, lumbosacral region; M47.816 Spondylosis without myelopathy or radiculopathy, lumbar region; Z12.31 Encounter for screening mammogram for malignant neoplasm of breast

== ENCOUNTER → 2022-01-14 | Outpatient (CLI) | payer MEDICARE, MEDICAID | LOC: M WHC 13:41 | PROVIDERS: ATTEND Family Medicine | DX: Z12.31 Encounter for screening mammogram for malignant neoplasm of breast (principal) ==

== ENCOUNTER → 2022-02-07 | Outpatient (CLI) | payer MEDICARE, MEDICAID | LOC: M LABSMTC 11:03 | PROVIDERS: ATTEND Anesthesiology | DX: Z01.812 Encounter for preprocedural laboratory examination (principal); Z20.822 Contact with and (suspected) exposure to COVID-19 ==

== ENCOUNTER → 2022-02-10 | Outpatient (CLI) | payer MEDICARE ==
[~2022-02-10] MED LIST changes: +BUPIVACAINE HCL 0.25% 30ML VIAL As Ordered ONE; +ISOVUE-M 300 61% 15ML VIAL As Ordered ONE; +LIDOCAINE 1% SDV 30ML VIAL As Ordered ONE; +dexameTHASONE 10MG/1ML VIAL PRES.FREE (J1100 PER 1MG) As Ordered ONE; +diazePAM 2 MG TAB As Ordered ONE; +oxyCODONE 5MG TAB As Ordered ONE
== END ==
LOC: M PAIN 13:30
PROVIDERS: ATTEND Anesthesiology
DX: M51.16 Intervertebral disc disorders with radiculopathy, lumbar region (principal); G89.29 Other chronic pain; G47.30 Sleep apnea, unspecified; I10 Essential (primary) hypertension; Z86.14 Personal history of Methicillin resistant Staphylococcus aureus infection; Z86.59 Personal history of other mental and behavioral disorders; Z86.711 Personal history of pulmonary embolism; Z98.84 Bariatric surgery status; Z96.653 Presence of artificial knee joint, bilateral; Z96.611 Presence of right artificial shoulder joint; Z88.0 Allergy status to penicillin; Z88.1 Allergy status to other antibiotic agents; Z88.5 Allergy status to narcotic agent; Z88.8 Allergy status to other drugs, medicaments and biological substances; Z91.09 Other allergy status, other than to drugs and biological substances; E66.01 Morbid (severe) obesity due to excess calories; Z68.44 Body mass index [BMI] 60.0-69.9, adult; Z79.01 Long term (current) use of anticoagulants; Z79.899 Other long term (current) drug therapy
CPT/HCPCS: 64483; J1100; Q9967

== ENCOUNTER 2022-02-20 10:54 | Emergency (ER) | payer MEDICARE, OTHER ==
[~2022-02-20] VITALS: Ht 162.6 cm; Wt 169.1 kg
[~2022-02-20 10:54] MED LIST changes: -BUPIVACAINE HCL 0.25% 30ML VIAL As Ordered ONE; -ISOVUE-M 300 61% 15ML VIAL As Ordered ONE; -LIDOCAINE 1% SDV 30ML VIAL As Ordered ONE; -dexameTHASONE 10MG/1ML VIAL PRES.FREE (J1100 PER 1MG) As Ordered ONE; -diazePAM 2 MG TAB As Ordered ONE; -oxyCODONE 5MG TAB As Ordered ONE
[2022-02-20] MEDS ORDERED: diphenhydrAMINE 50MG/ML VIAL (J1200) IV STA (12:39)
[2022-02-20] MEDS ORDERED: KETOROLAC 30 MG/ML 1ML VIAL IV ONE (12:40)
[2022-02-20] MEDS ORDERED: METOCLOPRAMIDE INJ 10MG/2ML VIAL (J2765 PER 1) IV ONE (12:40)
[2022-02-20] MEDS ORDERED: NS 1,000 ML IV ONE (12:40)
[2022-02-20] MEDS ORDERED: ACETAMINOPHEN 500 MG TAB PO ONE (12:40)
[2022-02-20] MEDS ORDERED: predniSONE 20 MG TAB PO ONE (14:35)
[2022-02-20] MEDS ORDERED: SUMAtriptan SUCCINATE 6MG/0.5ML VIAL SC ONE (14:35)
[2022-02-20] MEDS ORDERED: PROCHLORPERAZINE 5MG TAB PO ONE (14:35)
[2022-02-20 14:41] LABS: BASO % 0.4 % (0.0-1.0); EOS # 0.1 10^3/uL (0.0-0.5); EOS % 1.2 % (0.0-3.0); HEMATOCRIT 42.4 % (36.0-47.0); HEMOGLOBIN 13.3 g/dl (12.0-15.5); LYMPH # 2.6 10^3/uL (1.5-5.0); LYMPH % 35.1 % (24.0-44.0); MEAN CORPUSCULAR HEMOGLOBIN 30.2 pg (27.0-33.0); MEAN CORPUSCULAR HGB CONC 31.4 g/dl (32.0-36.5); MEAN CORPUSCULAR VOLUME 96.4 fl (80.0-96.0); MONO # 0.8 10^3/uL (0.0-0.8); MONO % 11.2 % (2.0-8.0); NEUTROPHILS # 3.8 10^3/uL (1.5-8.5); NEUTROPHILS % 51.7 % (36.0-66.0); PLATELET COUNT, AUTOMATED 146 10^3/uL (150-450); WHITE BLOOD COUNT 7.4 10^3/uL (4.0-10.0)
[2022-02-20 16:32] VITALS: BP 154/75
[2022-02-20 17:13] LABS: BLOOD UREA NITROGEN 15 MG/DL (7-18); CALCIUM LEVEL 8.6 MG/DL (8.8-10.2); CARBON DIOXIDE LEVEL 27 MEQ/L (21-32); CHLORIDE LEVEL 110 MEQ/L (98-107); CREATININE FOR GFR 0.82 MG/DL (0.55-1.30); GLOMERULAR FILTRATION RATE > 60.0 (>45); GLUCOSE, FASTING 78 MG/DL (70-100); POTASSIUM SERUM 4.8 MEQ/L (3.5-5.1); SODIUM LEVEL 142 MEQ/L (136-145)
== END 2022-02-20 16:35 | disposition home or self-care (01) ==
LOC: M ED 10:54
DX: R51.9 Headache, unspecified (principal); E66.01 Morbid (severe) obesity due to excess calories; I10 Essential (primary) hypertension; G62.9 Polyneuropathy, unspecified; Z86.711 Personal history of pulmonary embolism; Z98.84 Bariatric surgery status; Z79.899 Other long term (current) drug therapy; Z79.01 Long term (current) use of anticoagulants; Z88.0 Allergy status to penicillin; Z88.2 Allergy status to sulfonamides; Z88.1 Allergy status to other antibiotic agents; Z91.89 Other specified personal risk factors, not elsewhere classified; Z88.8 Allergy status to other drugs, medicaments and biological substances
CPT/HCPCS: 80047; 80048; 85025; 96361; 96374; 96375; 99284; J1200; J1885; J2765; J3030; J7512

== ENCOUNTER → 2022-03-14 | Outpatient (CLI) | payer MEDICARE, MEDICAID ==
[~2022-03-14] MED LIST changes: +CLOP75TA99 PO; -PLAV1TAB2 PO
== END ==
LOC: M PAIN 11:30
PROVIDERS: ATTEND Anesthesiology
DX: G89.29 Other chronic pain (principal); M48.062 Spinal stenosis, lumbar region with neurogenic claudication; Z95.3 Presence of xenogenic heart valve; E66.01 Morbid (severe) obesity due to excess calories; Z87.442 Personal history of urinary calculi; Z62.810 Personal history of physical and sexual abuse in childhood; Z62.811 Personal history of psychological abuse in childhood; F32.A Depression, unspecified; F41.9 Anxiety disorder, unspecified; Z86.14 Personal history of Methicillin resistant Staphylococcus aureus infection; D63.8 Anemia in other chronic diseases classified elsewhere; M54.9 Dorsalgia, unspecified; I10 Essential (primary) hypertension; Z96.611 Presence of right artificial shoulder joint; Z86.711 Personal history of pulmonary embolism; N32.81 Overactive bladder; Z79.01 Long term (current) use of anticoagulants; Z79.899 Other long term (current) drug therapy; Z88.1 Allergy status to other antibiotic agents; Z88.2 Allergy status to sulfonamides; Z88.5 Allergy status to narcotic agent; Z88.8 Allergy status to other drugs, medicaments and biological substances

== ENCOUNTER → 2022-03-24 | Outpatient (CLI) | payer MEDICARE, MEDICAID | LOC: M PAIN 09:30 | PROVIDERS: ATTEND Anesthesiology | DX: M48.061 Spinal stenosis, lumbar region without neurogenic claudication (principal); M51.16 Intervertebral disc disorders with radiculopathy, lumbar region; G89.29 Other chronic pain; I10 Essential (primary) hypertension; Z86.14 Personal history of Methicillin resistant Staphylococcus aureus infection; Z86.59 Personal history of other mental and behavioral disorders; Z86.711 Personal history of pulmonary embolism; Z96.653 Presence of artificial knee joint, bilateral; Z98.84 Bariatric surgery status; Z96.611 Presence of right artificial shoulder joint; Z88.0 Allergy status to penicillin; Z88.1 Allergy status to other antibiotic agents; Z88.5 Allergy status to narcotic agent; Z88.8 Allergy status to other drugs, medicaments and biological substances; Z91.09 Other allergy status, other than to drugs and biological substances; E66.01 Morbid (severe) obesity due to excess calories; Z68.44 Body mass index [BMI] 60.0-69.9, adult; Z79.01 Long term (current) use of anticoagulants; Z79.899 Other long term (current) drug therapy ==

== ENCOUNTER → 2022-04-04 | Outpatient (CLI) | payer MEDICARE, MEDICAID | LOC: M PAIN 15:00 | PROVIDERS: ATTEND Anesthesiology | DX: M51.16 Intervertebral disc disorders with radiculopathy, lumbar region (principal); G89.29 Other chronic pain; I10 Essential (primary) hypertension; Z86.14 Personal history of Methicillin resistant Staphylococcus aureus infection; Z86.59 Personal history of other mental and behavioral disorders; Z86.711 Personal history of pulmonary embolism; Z96.653 Presence of artificial knee joint, bilateral; Z96.611 Presence of right artificial shoulder joint; Z88.0 Allergy status to penicillin; Z88.1 Allergy status to other antibiotic agents; Z88.5 Allergy status to narcotic agent; Z88.8 Allergy status to other drugs, medicaments and biological substances; Z91.09 Other allergy status, other than to drugs and biological substances; Z98.84 Bariatric surgery status; Z79.01 Long term (current) use of anticoagulants; Z79.899 Other long term (current) drug therapy ==

== ENCOUNTER → 2022-04-13 | Outpatient (CLI) | payer MEDICARE, MEDICAID | LOC: M PAIN 17:00 | PROVIDERS: ATTEND Anesthesiology | DX: M51.16 Intervertebral disc disorders with radiculopathy, lumbar region (principal); M48.062 Spinal stenosis, lumbar region with neurogenic claudication; G89.29 Other chronic pain; I10 Essential (primary) hypertension; Z86.14 Personal history of Methicillin resistant Staphylococcus aureus infection; Z86.59 Personal history of other mental and behavioral disorders; Z86.711 Personal history of pulmonary embolism; Z98.84 Bariatric surgery status; Z96.653 Presence of artificial knee joint, bilateral; Z96.611 Presence of right artificial shoulder joint; Z88.0 Allergy status to penicillin; Z88.1 Allergy status to other antibiotic agents; Z88.5 Allergy status to narcotic agent; Z88.8 Allergy status to other drugs, medicaments and biological substances; Z91.09 Other allergy status, other than to drugs and biological substances; E66.01 Morbid (severe) obesity due to excess calories; Z68.44 Body mass index [BMI] 60.0-69.9, adult; Z79.01 Long term (current) use of anticoagulants; Z79.899 Other long term (current) drug therapy ==

== ENCOUNTER → 2022-04-28 | Outpatient (CLI) | payer MEDICARE, MEDICAID | LOC: M RAD 12:00 | PROVIDERS: ATTEND Anesthesiology | DX: M47.817 Spondylosis without myelopathy or radiculopathy, lumbosacral region (principal); M41.27 Other idiopathic scoliosis, lumbosacral region; M85.88 Other specified disorders of bone density and structure, other site; M43.16 Spondylolisthesis, lumbar region ==

== ENCOUNTER → 2022-05-23 | Outpatient (CLI) | payer MEDICARE, MEDICAID | LOC: M LABSMTC 09:29 | PROVIDERS: ATTEND Anesthesiology | DX: Z01.812 Encounter for preprocedural laboratory examination (principal); Z20.822 Contact with and (suspected) exposure to COVID-19 ==

== ENCOUNTER → 2022-05-23 | Outpatient (CLI) | payer MEDICARE, MEDICAID | LOC: M PAIN 16:00 | PROVIDERS: ATTEND Anesthesiology | DX: M51.16 Intervertebral disc disorders with radiculopathy, lumbar region (principal); M51.36 Other intervertebral disc degeneration, lumbar region; M48.061 Spinal stenosis, lumbar region without neurogenic claudication; Z95.3 Presence of xenogenic heart valve; E66.01 Morbid (severe) obesity due to excess calories; F41.8 Other specified anxiety disorders; Z86.14 Personal history of Methicillin resistant Staphylococcus aureus infection; D63.8 Anemia in other chronic diseases classified elsewhere; M65.4 Radial styloid tenosynovitis [de Quervain]; I10 Essential (primary) hypertension; Z96.611 Presence of right artificial shoulder joint; Z86.711 Personal history of pulmonary embolism; N32.81 Overactive bladder; G62.0 Drug-induced polyneuropathy; Z88.1 Allergy status to other antibiotic agents; Z88.0 Allergy status to penicillin; Z88.5 Allergy status to narcotic agent; Z88.8 Allergy status to other drugs, medicaments and biological substances; Z79.01 Long term (current) use of anticoagulants; Z79.891 Long term (current) use of opiate analgesic; Z79.899 Other long term (current) drug therapy ==

== ENCOUNTER → 2022-05-26 | Outpatient (CLI) | payer MEDICARE, MEDICAID ==
[~2022-05-26] MED LIST changes: +BUPIVACAINE HCL 0.25% 30ML VIAL As Ordered ONE; +ISOVUE-M 300 61% 15ML VIAL As Ordered ONE; +LIDOCAINE 1% SDV 30ML VIAL As Ordered ONE; +diazePAM 5MG TABLET As Ordered ONE; +oxyCODONE 5MG TAB As Ordered ONE
== END ==
LOC: M PAIN 14:00
PROVIDERS: ATTEND Anesthesiology
DX: M51.16 Intervertebral disc disorders with radiculopathy, lumbar region (principal); G89.29 Other chronic pain; G47.30 Sleep apnea, unspecified; I10 Essential (primary) hypertension; Z86.14 Personal history of Methicillin resistant Staphylococcus aureus infection; Z86.59 Personal history of other mental and behavioral disorders; Z86.711 Personal history of pulmonary embolism; Z96.653 Presence of artificial knee joint, bilateral; Z98.84 Bariatric surgery status; Z88.0 Allergy status to penicillin; Z88.1 Allergy status to other antibiotic agents; Z88.5 Allergy status to narcotic agent; Z88.8 Allergy status to other drugs, medicaments and biological substances; Z91.09 Other allergy status, other than to drugs and biological substances; E66.01 Morbid (severe) obesity due to excess calories; Z68.44 Body mass index [BMI] 60.0-69.9, adult; Z79.01 Long term (current) use of anticoagulants; Z79.899 Other long term (current) drug therapy
CPT/HCPCS: 64483; J1100; Q9967

== ENCOUNTER → 2022-06-02 | Outpatient (CLI) | payer MEDICARE, MEDICAID ==
[~2022-06-02] MED LIST changes: -BUPIVACAINE HCL 0.25% 30ML VIAL As Ordered ONE; -ISOVUE-M 300 61% 15ML VIAL As Ordered ONE; -LIDOCAINE 1% SDV 30ML VIAL As Ordered ONE; -diazePAM 5MG TABLET As Ordered ONE; -oxyCODONE 5MG TAB As Ordered ONE
== END ==
LOC: M PAIN 09:15
PROVIDERS: ATTEND Anesthesiology
DX: M48.062 Spinal stenosis, lumbar region with neurogenic claudication (principal); G89.29 Other chronic pain; I10 Essential (primary) hypertension; Z86.14 Personal history of Methicillin resistant Staphylococcus aureus infection; Z86.59 Personal history of other mental and behavioral disorders; Z86.711 Personal history of pulmonary embolism; Z96.653 Presence of artificial knee joint, bilateral; Z98.84 Bariatric surgery status; Z96.611 Presence of right artificial shoulder joint; Z88.0 Allergy status to penicillin; Z88.1 Allergy status to other antibiotic agents; Z88.5 Allergy status to narcotic agent; Z88.8 Allergy status to other drugs, medicaments and biological substances; Z91.09 Other allergy status, other than to drugs and biological substances; Z79.01 Long term (current) use of anticoagulants; Z79.899 Other long term (current) drug therapy

== ENCOUNTER → 2022-06-22 | Outpatient (CLI) | payer MEDICARE, MEDICAID | LOC: M PAIN 10:30 | PROVIDERS: ATTEND Anesthesiology | DX: M48.062 Spinal stenosis, lumbar region with neurogenic claudication (principal); G89.29 Other chronic pain; I10 Essential (primary) hypertension; Z86.59 Personal history of other mental and behavioral disorders; Z86.14 Personal history of Methicillin resistant Staphylococcus aureus infection; Z86.711 Personal history of pulmonary embolism; Z96.653 Presence of artificial knee joint, bilateral; Z98.84 Bariatric surgery status; Z88.0 Allergy status to penicillin; Z88.1 Allergy status to other antibiotic agents; Z88.5 Allergy status to narcotic agent; Z88.8 Allergy status to other drugs, medicaments and biological substances; Z91.09 Other allergy status, other than to drugs and biological substances; E66.01 Morbid (severe) obesity due to excess calories; Z68.44 Body mass index [BMI] 60.0-69.9, adult; Z79.01 Long term (current) use of anticoagulants; Z79.891 Long term (current) use of opiate analgesic; Z79.899 Other long term (current) drug therapy ==

== ENCOUNTER → 2022-07-02 | Outpatient (CLI) | payer MEDICARE, MEDICAID | LOC: M RAD 13:44 | PROVIDERS: ATTEND Urology | DX: N20.0 Calculus of kidney (principal); M47.9 Spondylosis, unspecified; M16.0 Bilateral primary osteoarthritis of hip ==

== ENCOUNTER → 2022-07-05 | Outpatient (CLI) | payer MEDICARE, MEDICAID | LOC: M PAIN 08:45 | PROVIDERS: ATTEND Anesthesiology | DX: M48.062 Spinal stenosis, lumbar region with neurogenic claudication (principal); G89.29 Other chronic pain; I10 Essential (primary) hypertension; Z86.14 Personal history of Methicillin resistant Staphylococcus aureus infection; Z86.59 Personal history of other mental and behavioral disorders; Z96.611 Presence of right artificial shoulder joint; Z98.84 Bariatric surgery status; Z88.0 Allergy status to penicillin; Z88.1 Allergy status to other antibiotic agents; Z88.5 Allergy status to narcotic agent; Z88.8 Allergy status to other drugs, medicaments and biological substances; Z91.09 Other allergy status, other than to drugs and biological substances; Z79.01 Long term (current) use of anticoagulants; Z79.891 Long term (current) use of opiate analgesic; Z79.899 Other long term (current) drug therapy ==

== ENCOUNTER → 2022-07-27 | Outpatient (CLI) | payer MEDICARE, MEDICAID | LOC: M PAIN 16:00 | PROVIDERS: ATTEND Anesthesiology | DX: M48.062 Spinal stenosis, lumbar region with neurogenic claudication (principal); G89.29 Other chronic pain; I10 Essential (primary) hypertension; Z86.14 Personal history of Methicillin resistant Staphylococcus aureus infection; Z86.59 Personal history of other mental and behavioral disorders; Z86.711 Personal history of pulmonary embolism; Z96.653 Presence of artificial knee joint, bilateral; Z98.84 Bariatric surgery status; Z96.611 Presence of right artificial shoulder joint; Z88.0 Allergy status to penicillin; Z88.1 Allergy status to other antibiotic agents; Z88.5 Allergy status to narcotic agent; Z88.8 Allergy status to other drugs, medicaments and biological substances; Z91.09 Other allergy status, other than to drugs and biological substances; Z79.01 Long term (current) use of anticoagulants; Z79.891 Long term (current) use of opiate analgesic; Z79.899 Other long term (current) drug therapy ==

== ENCOUNTER → 2022-08-16 | Outpatient (REF) | payer MEDICARE, MEDICAID ==
[2022-08-16 17:35] LABS: BASO % 0.4 % (0.0-1.0); EOS # 0.1 10^3/uL (0.0-0.5); EOS % 1.9 % (0.0-3.0); HEMATOCRIT 45.8 % (36.0-47.0); HEMOGLOBIN 13.8 g/dl (12.0-15.5); LYMPH # 2.8 10^3/uL (1.5-5.0); LYMPH % 38.6 % (24.0-44.0); MEAN CORPUSCULAR HEMOGLOBIN 29.1 pg (27.0-33.0); MEAN CORPUSCULAR HGB CONC 30.1 g/dl (32.0-36.5); MEAN CORPUSCULAR VOLUME 96.6 fl (80.0-96.0); MONO # 0.9 10^3/uL (0.0-0.8); MONO % 12.4 % (2.0-8.0); NEUTROPHILS # 3.4 10^3/uL (1.5-8.5); NEUTROPHILS % 46.4 % (36.0-66.0); PLATELET COUNT, AUTOMATED 164 10^3/uL (150-450); RED BLOOD COUNT 4.74 10^6/uL (4.00-5.40); WHITE BLOOD COUNT 7.3 10^3/uL (4.0-10.0)
[2022-08-16 17:46] LABS: INR 1.04; PARTIAL THROMBOPLASTIN TIME 29.8 SECONDS (24.8-34.2); PROTHROMBIN TIME 13.8 SECONDS (12.5-14.5)
[2022-08-16 17:51] LABS: ALBUMIN 3.8 G/DL (3.2-5.2); ALKALINE PHOSPHATASE 115 U/L (46-116); ALT/SGPT 11 U/L (7.0-40); AST/SGOT 15 U/L (<34); BILIRUBIN,TOTAL 0.4 MG/DL (0.3-1.2); BLOOD UREA NITROGEN 20 MG/DL (9-23); CALCIUM LEVEL 9.7 MG/DL (8.3-10.6); CARBON DIOXIDE LEVEL 31 MMOL/L (20-31); CHLORIDE LEVEL 106 MMOL/L (98-107); CREATININE FOR GFR 0.93 MG/DL (0.55-1.30); GLOMERULAR FILTRATION RATE > 60.0 (>45); GLUCOSE, FASTING 83 MG/DL (74-106); POTASSIUM SERUM 5.1 MMOL/L (3.5-5.1); SODIUM LEVEL 140 MMOL/L (136-145)
== END ==
LOC: M SFHCADAM 14:04
PROVIDERS: ATTEND Family Medicine
DX: Z01.818 Encounter for other preprocedural examination (principal); Z79.01 Long term (current) use of anticoagulants

== ENCOUNTER → 2022-08-24 | Outpatient (CLI) | payer MEDICARE, MEDICAID | LOC: M PAIN 13:30 | PROVIDERS: ATTEND Anesthesiology | DX: M48.062 Spinal stenosis, lumbar region with neurogenic claudication (principal); G89.29 Other chronic pain; I10 Essential (primary) hypertension; Z86.14 Personal history of Methicillin resistant Staphylococcus aureus infection; Z86.59 Personal history of other mental and behavioral disorders; Z86.711 Personal history of pulmonary embolism; Z96.653 Presence of artificial knee joint, bilateral; Z98.84 Bariatric surgery status; Z88.0 Allergy status to penicillin; Z88.1 Allergy status to other antibiotic agents; Z88.5 Allergy status to narcotic agent; Z88.8 Allergy status to other drugs, medicaments and biological substances; Z91.09 Other allergy status, other than to drugs and biological substances; Z79.01 Long term (current) use of anticoagulants; Z79.891 Long term (current) use of opiate analgesic; Z79.899 Other long term (current) drug therapy ==

== ENCOUNTER → 2022-09-02 | Outpatient (CLI) | payer MEDICARE, MEDICAID | LOC: M PAIN 11:30 | PROVIDERS: ATTEND Anesthesiology | DX: M48.061 Spinal stenosis, lumbar region without neurogenic claudication (principal); G89.29 Other chronic pain; I10 Essential (primary) hypertension; Z86.14 Personal history of Methicillin resistant Staphylococcus aureus infection; Z86.59 Personal history of other mental and behavioral disorders; Z86.711 Personal history of pulmonary embolism; Z96.653 Presence of artificial knee joint, bilateral; Z98.84 Bariatric surgery status; Z96.611 Presence of right artificial shoulder joint; Z88.0 Allergy status to penicillin; Z88.1 Allergy status to other antibiotic agents; Z88.5 Allergy status to narcotic agent; Z88.8 Allergy status to other drugs, medicaments and biological substances; Z91.09 Other allergy status, other than to drugs and biological substances; E66.01 Morbid (severe) obesity due to excess calories; Z68.44 Body mass index [BMI] 60.0-69.9, adult; Z79.01 Long term (current) use of anticoagulants; Z79.891 Long term (current) use of opiate analgesic; Z79.899 Other long term (current) drug therapy ==

== ENCOUNTER → 2022-09-23 | Outpatient (CLI) | payer MEDICARE, MEDICAID | LOC: M PAIN 15:45 | PROVIDERS: ATTEND Anesthesiology | DX: M47.816 Spondylosis without myelopathy or radiculopathy, lumbar region (principal); G89.29 Other chronic pain; I10 Essential (primary) hypertension; Z86.14 Personal history of Methicillin resistant Staphylococcus aureus infection; Z86.59 Personal history of other mental and behavioral disorders; Z86.711 Personal history of pulmonary embolism; Z98.84 Bariatric surgery status; Z96.653 Presence of artificial knee joint, bilateral; Z88.0 Allergy status to penicillin; Z88.1 Allergy status to other antibiotic agents; Z88.5 Allergy status to narcotic agent; Z88.8 Allergy status to other drugs, medicaments and biological substances; Z91.09 Other allergy status, other than to drugs and biological substances; E66.01 Morbid (severe) obesity due to excess calories; Z68.44 Body mass index [BMI] 60.0-69.9, adult; Z79.01 Long term (current) use of anticoagulants; Z79.891 Long term (current) use of opiate analgesic; Z79.899 Other long term (current) drug therapy ==

== ENCOUNTER → 2022-10-18 | Outpatient (CLI) | payer MEDICARE, MEDICAID | LOC: M PAIN 16:30 | PROVIDERS: ATTEND Anesthesiology | DX: M48.062 Spinal stenosis, lumbar region with neurogenic claudication (principal); G89.29 Other chronic pain; I10 Essential (primary) hypertension; Z86.14 Personal history of Methicillin resistant Staphylococcus aureus infection; Z86.59 Personal history of other mental and behavioral disorders; Z86.711 Personal history of pulmonary embolism; Z98.84 Bariatric surgery status; Z96.611 Presence of right artificial shoulder joint; Z88.0 Allergy status to penicillin; Z88.1 Allergy status to other antibiotic agents; Z88.5 Allergy status to narcotic agent; Z88.8 Allergy status to other drugs, medicaments and biological substances; Z91.09 Other allergy status, other than to drugs and biological substances; Z79.01 Long term (current) use of anticoagulants; Z79.891 Long term (current) use of opiate analgesic; Z79.899 Other long term (current) drug therapy ==

== ENCOUNTER → 2022-10-25 | Outpatient (CLI) | payer OTHER, MEDICAID | LOC: M PAIN 11:00 | PROVIDERS: ATTEND Anesthesiology | DX: M48.062 Spinal stenosis, lumbar region with neurogenic claudication (principal); M51.16 Intervertebral disc disorders with radiculopathy, lumbar region; G89.29 Other chronic pain; I10 Essential (primary) hypertension; Z86.14 Personal history of Methicillin resistant Staphylococcus aureus infection; Z86.59 Personal history of other mental and behavioral disorders; Z86.711 Personal history of pulmonary embolism; Z98.84 Bariatric surgery status; Z88.0 Allergy status to penicillin; Z88.1 Allergy status to other antibiotic agents; Z88.5 Allergy status to narcotic agent; Z88.8 Allergy status to other drugs, medicaments and biological substances; Z91.09 Other allergy status, other than to drugs and biological substances; E66.01 Morbid (severe) obesity due to excess calories; Z68.44 Body mass index [BMI] 60.0-69.9, adult; Z79.01 Long term (current) use of anticoagulants; Z79.891 Long term (current) use of opiate analgesic; Z79.899 Other long term (current) drug therapy ==

== ENCOUNTER → 2022-10-28 | Outpatient (CLI) | payer OTHER, MEDICAID | LOC: M PAIN 16:45 | PROVIDERS: ATTEND Anesthesiology | DX: M48.062 Spinal stenosis, lumbar region with neurogenic claudication (principal); M51.16 Intervertebral disc disorders with radiculopathy, lumbar region; G89.29 Other chronic pain; I10 Essential (primary) hypertension; Z86.14 Personal history of Methicillin resistant Staphylococcus aureus infection; Z86.59 Personal history of other mental and behavioral disorders; Z86.711 Personal history of pulmonary embolism; Z98.84 Bariatric surgery status; Z96.653 Presence of artificial knee joint, bilateral; Z96.611 Presence of right artificial shoulder joint; Z88.0 Allergy status to penicillin; Z88.1 Allergy status to other antibiotic agents; Z88.5 Allergy status to narcotic agent; Z88.8 Allergy status to other drugs, medicaments and biological substances; Z91.09 Other allergy status, other than to drugs and biological substances; Z79.01 Long term (current) use of anticoagulants; Z79.899 Other long term (current) drug therapy ==

== ENCOUNTER → 2022-11-10 | Outpatient (CLI) | payer OTHER, MEDICAID | LOC: M PAIN 16:30 → M TMPAIN 16:30 | PROVIDERS: ATTEND Anesthesiology | DX: M48.062 Spinal stenosis, lumbar region with neurogenic claudication (principal); G89.29 Other chronic pain; I10 Essential (primary) hypertension; Z86.14 Personal history of Methicillin resistant Staphylococcus aureus infection; Z86.59 Personal history of other mental and behavioral disorders; Z86.711 Personal history of pulmonary embolism; Z96.653 Presence of artificial knee joint, bilateral; Z98.84 Bariatric surgery status; Z96.611 Presence of right artificial shoulder joint; Z88.0 Allergy status to penicillin; Z88.1 Allergy status to other antibiotic agents; Z88.5 Allergy status to narcotic agent; Z88.8 Allergy status to other drugs, medicaments and biological substances; Z91.09 Other allergy status, other than to drugs and biological substances; E66.01 Morbid (severe) obesity due to excess calories; Z68.44 Body mass index [BMI] 60.0-69.9, adult; Z79.01 Long term (current) use of anticoagulants; Z79.899 Other long term (current) drug therapy ==

== ENCOUNTER → 2022-11-23 | Outpatient (CLI) | payer OTHER, MEDICAID ==
[~2022-11-23] MED LIST changes: +ROPI5TAB23; +ROPI5TAB23 PO; -ROPI5TAB3; -ROPI5TAB3 PO
== END ==
LOC: M PAIN 10:15
PROVIDERS: ATTEND Anesthesiology
DX: M48.062 Spinal stenosis, lumbar region with neurogenic claudication (principal); G89.29 Other chronic pain; I10 Essential (primary) hypertension; Z86.14 Personal history of Methicillin resistant Staphylococcus aureus infection; Z86.59 Personal history of other mental and behavioral disorders; Z86.711 Personal history of pulmonary embolism; Z96.653 Presence of artificial knee joint, bilateral; Z96.611 Presence of right artificial shoulder joint; Z88.0 Allergy status to penicillin; Z88.1 Allergy status to other antibiotic agents; Z88.5 Allergy status to narcotic agent; Z88.8 Allergy status to other drugs, medicaments and biological substances; Z91.09 Other allergy status, other than to drugs and biological substances; Z79.01 Long term (current) use of anticoagulants; Z79.899 Other long term (current) drug therapy

== ENCOUNTER 2022-12-04 21:50 | Emergency (ER) | payer OTHER, MEDICAID ==
[~2022-12-04] VITALS: Ht 157.5 cm; Wt 157.6 kg
[2022-12-04 22:44] LABS: APPEARANCE, URINE HAZY (CLEAR); BACTERIA, URINE AUTO 1+ (NEGATIVE); BILIRUBIN, URINE AUTO NEGATIVE (NEGATIVE); BLOOD, URINE BLOOD 1+ (NEGATIVE); CALCIUM OXALATE CRYSTALS SMALL; COLOR, URINE YELLOW (YELLOW); GLUCOSE, URINE (UA) AUTO NEGATIVE (NEGATIVE); KETONE, URINE AUTO TRACE mg/dL (NEGATIVE); LEUKOCYTE ESTERASE, URINE AUTO 2+ (NEGATIVE); MUCUS, URINE SMALL (NEGATIVE); NITRITE, URINE AUTO NEGATIVE (NEGATIVE); PROTEIN, URINE AUTO 1+ mg/dL (NEGATIVE); RBC, URINE AUTO 19 /HPF (0-3); SQUAMOUS EPITHELIAL CELL UR AU 14 /HPF (0-6); WBC, URINE AUTO 31 /HPF (0-3)
[2022-12-04] MEDS ORDERED: diphenhydrAMINE 50MG/ML VIAL IV ONE (23:35)
[2022-12-04] MEDS ORDERED: ONDANSETRON 4MG 2ML VIAL IV ONE (23:35)
[2022-12-04] MEDS ORDERED: MORPHINE 4 MG/ML 1ML VIAL IV ONE (23:35)
[2022-12-05 00:08] LABS: HEMATOCRIT 41.9 % (36.0-47.0); HEMOGLOBIN 12.9 g/dl (12.0-15.5); MEAN CORPUSCULAR HEMOGLOBIN 29.8 pg (27.0-33.0); MEAN CORPUSCULAR HGB CONC 30.8 g/dl (32.0-36.5); MEAN CORPUSCULAR VOLUME 96.8 fl (80.0-96.0); PLATELET COUNT, AUTOMATED 135 10^3/uL (150-450); RED BLOOD COUNT 4.33 10^6/uL (4.00-5.40); WHITE BLOOD COUNT 6.9 10^3/uL (4.0-10.0)
[2022-12-05 00:34] LABS: BLOOD UREA NITROGEN 21 MG/DL (9-23); CALCIUM LEVEL 8.8 MG/DL (8.3-10.6); CARBON DIOXIDE LEVEL 27 MMOL/L (20-31); CHLORIDE LEVEL 111 MMOL/L (98-107); CREATININE FOR GFR 0.93 MG/DL (0.55-1.30); GLOMERULAR FILTRATION RATE > 60.0 (>45); GLUCOSE, FASTING 92 MG/DL (74-106); POTASSIUM SERUM 4.4 MMOL/L (3.5-5.1); SODIUM LEVEL 143 MMOL/L (136-145)
[2022-12-05] MEDS ORDERED: MORPHINE 2 MG/ML 1ML VIAL IV ONE (00:50)
[2022-12-05] MEDS ORDERED: CEPHALEXIN 500 MG CAP PO ONE (01:05)
[2022-12-05] MEDS ORDERED: NORCO 5/325MG TABLET (HOME DOSE PACK) PO ONE (01:05)
[2022-12-05] MEDS ORDERED: HYDR-3713 PO (01:11)
[2022-12-05] MEDS ORDERED: CEPH500C PO (01:11)
[2022-12-05 01:30] VITALS: BP 126/68; O2SAT 96
[2022-12-05 01:50] VITALS: TEMP 98.4
== END 2022-12-05 01:54 | disposition home or self-care (01) ==
LOC: M ED 21:50
DX: N39.0 Urinary tract infection, site not specified (principal); Z88.0 Allergy status to penicillin; Z88.2 Allergy status to sulfonamides; Z88.5 Allergy status to narcotic agent; Z88.8 Allergy status to other drugs, medicaments and biological substances; Z79.01 Long term (current) use of anticoagulants
CPT/HCPCS: 36415; 74176; 80048; 81001; 85027; 96374; 96375; 96376; 99284; J1200; J2405

== ENCOUNTER → 2022-12-09 | Outpatient (CLI) | payer OTHER, MEDICAID | LOC: M PAIN 16:00 | PROVIDERS: ATTEND Anesthesiology | DX: M48.062 Spinal stenosis, lumbar region with neurogenic claudication (principal); M51.16 Intervertebral disc disorders with radiculopathy, lumbar region; I10 Essential (primary) hypertension; Z86.14 Personal history of Methicillin resistant Staphylococcus aureus infection; Z86.59 Personal history of other mental and behavioral disorders; Z86.711 Personal history of pulmonary embolism; Z96.653 Presence of artificial knee joint, bilateral; Z98.84 Bariatric surgery status; Z96.611 Presence of right artificial shoulder joint; Z88.0 Allergy status to penicillin; Z88.1 Allergy status to other antibiotic agents; Z88.5 Allergy status to narcotic agent; Z88.8 Allergy status to other drugs, medicaments and biological substances; Z91.09 Other allergy status, other than to drugs and biological substances; Z79.01 Long term (current) use of anticoagulants; Z79.899 Other long term (current) drug therapy ==

== ENCOUNTER → 2022-12-20 | Outpatient (CLI) | payer MEDICAID, OTHER | LOC: M RAD 08:54 | PROVIDERS: ATTEND Orthopaedic Surgery | DX: Z01.818 Encounter for other preprocedural examination (principal); M25.511 Pain in right shoulder; G89.29 Other chronic pain; Z96.611 Presence of right artificial shoulder joint; M89.511 Osteolysis, right shoulder; R93.7 Abnormal findings on diagnostic imaging of other parts of musculoskeletal system ==

== ENCOUNTER → 2022-12-21 | Outpatient (CLI) | payer OTHER, MEDICAID | LOC: M TMPAIN 13:45 → M PAIN 13:45 | PROVIDERS: ATTEND Anesthesiology | DX: M48.062 Spinal stenosis, lumbar region with neurogenic claudication (principal); G89.29 Other chronic pain; G47.30 Sleep apnea, unspecified; I10 Essential (primary) hypertension; Z86.14 Personal history of Methicillin resistant Staphylococcus aureus infection; Z86.59 Personal history of other mental and behavioral disorders; Z86.711 Personal history of pulmonary embolism; Z96.643 Presence of artificial hip joint, bilateral; Z98.84 Bariatric surgery status; Z96.611 Presence of right artificial shoulder joint; Z88.0 Allergy status to penicillin; Z88.1 Allergy status to other antibiotic agents; Z88.5 Allergy status to narcotic agent; Z88.8 Allergy status to other drugs, medicaments and biological substances; Z91.09 Other allergy status, other than to drugs and biological substances; Z79.01 Long term (current) use of anticoagulants; Z79.899 Other long term (current) drug therapy ==

== ENCOUNTER → 2023-01-25 | Outpatient (CLI) | payer MEDICAID, OTHER ==
[~2023-01-25] MED LIST changes: +EZET10TA58 PO; -PREG100C PO; +PREG100C2 PO; -ZETI10TA16 PO
== END ==
LOC: M WHC 13:47
PROVIDERS: ATTEND Family Medicine
DX: Z12.31 Encounter for screening mammogram for malignant neoplasm of breast (principal)

== ENCOUNTER → 2023-01-25 | Outpatient (CLI) | payer OTHER | LOC: M PLAIMG 15:29 → M PLALAB 15:29 | PROVIDERS: ATTEND Urology | DX: Z53.9 Procedure and treatment not carried out, unspecified reason (principal); N20.0 Calculus of kidney ==

== ENCOUNTER → 2023-01-26 | Outpatient (CLI) | payer MEDICAID, OTHER | LOC: M RAD 17:33 | PROVIDERS: ATTEND Urology | DX: N20.0 Calculus of kidney (principal) ==

== ENCOUNTER → 2023-05-01 | Outpatient (CLI) | payer OTHER, MEDICAID ==
[~2023-05-01] MED LIST changes: +DILA4TAB13 PO
== END ==
LOC: M PAIN 09:15
PROVIDERS: ATTEND Nurse Practitioner Family
DX: M48.062 Spinal stenosis, lumbar region with neurogenic claudication (principal); G89.29 Other chronic pain; Z86.14 Personal history of Methicillin resistant Staphylococcus aureus infection; Z86.711 Personal history of pulmonary embolism; Z98.84 Bariatric surgery status; Z80.8 Family history of malignant neoplasm of other organs or systems; Z88.0 Allergy status to penicillin; Z88.1 Allergy status to other antibiotic agents; Z88.5 Allergy status to narcotic agent; Z88.8 Allergy status to other drugs, medicaments and biological substances; Z91.09 Other allergy status, other than to drugs and biological substances; E66.01 Morbid (severe) obesity due to excess calories; Z68.43 Body mass index [BMI] 50.0-59.9, adult; Z79.01 Long term (current) use of anticoagulants; Z79.899 Other long term (current) drug therapy

== ENCOUNTER 2023-05-08 05:04 | Emergency (ER) | payer MEDICAID, OTHER ==
[~2023-05-08] VITALS: Ht 162.6 cm; Wt 150.0 kg
[~2023-05-08 05:04] MED LIST changes: -DILA4TAB13 PO
[2023-05-08] MEDS ORDERED: ACETAMINOPHEN 325 MG TAB PO ONE (07:25)
[2023-05-08] MEDS ORDERED: NS 500 ML IV ONE (07:25)
[2023-05-08 08:02] LABS: BASO % 0.2 % (0.0-1.0); HEMATOCRIT 39.5 % (36.0-47.0); HEMOGLOBIN 12.4 g/dl (12.0-15.5); LYMPH # 1.9 10^3/uL (1.5-5.0); LYMPH % 18.6 % (24.0-44.0); MEAN CORPUSCULAR HGB CONC 31.4 g/dl (32.0-36.5); MEAN CORPUSCULAR VOLUME 95.4 fl (80.0-96.0); MONO # 1.1 10^3/uL (0.0-0.8); MONO % 10.7 % (2.0-8.0); NEUTROPHILS # 7.1 10^3/uL (1.5-8.5); NEUTROPHILS % 70.2 % (36.0-66.0); PLATELET COUNT, AUTOMATED 117 10^3/uL (150-450); RED BLOOD COUNT 4.14 10^6/uL (4.00-5.40); WHITE BLOOD COUNT 10.1 10^3/uL (4.0-10.0)
[2023-05-08 08:33] LABS: VALPROIC ACID (DEPAKOTE) 41.8 UG/ML (50.0-100.0)
[2023-05-08 08:34] LABS: ALBUMIN 3.4 G/DL (3.2-5.2); ALKALINE PHOSPHATASE 83 U/L (46-116); ALT/SGPT 11 U/L (7.0-40); AST/SGOT 11 U/L (<34); BILIRUBIN,DIRECT 0.4 MG/DL (<0.4); BLOOD UREA NITROGEN 17 MG/DL (9-23); CALCIUM LEVEL 9.6 MG/DL (8.3-10.6); CARBON DIOXIDE LEVEL 26 MMOL/L (20-31); CHLORIDE LEVEL 108 MMOL/L (98-107); CREATININE FOR GFR 0.86 MG/DL (0.55-1.30); GLOMERULAR FILTRATION RATE > 60.0 (>45); GLUCOSE, FASTING 101 MG/DL (74-106); MAGNESIUM LEVEL 2.1 MG/DL (1.8-2.4); POTASSIUM SERUM 4.5 MMOL/L (3.5-5.1); SODIUM LEVEL 141 MMOL/L (136-145); TOTAL PROTEIN 6.6 G/DL (5.7-8.2)
[2023-05-08 08:36] LABS: THYROID STIMULATING HORMONE 2.823 uIU/ML (0.55-4.78); THYROXINE (T4) 8.5 UG/DL (4.5-10.9)
[2023-05-08] MEDS ORDERED: DILA4TAB13 PO (08:43)
[2023-05-08] MEDS ORDERED: ISOVUE-370 76% 100ML VIAL As Ordered ONE (09:03)
[2023-05-08] MEDS ORDERED: diphenhydrAMINE 50MG/ML VIAL IV STA (09:19)
[2023-05-08] MEDS ORDERED: MORPHINE 4 MG/ML 1ML VIAL IV ONE (09:20)
[2023-05-08] MEDS ORDERED: CIPROFLOXACIN 400 MG in IV 1 EA IV ONE (10:35)
[2023-05-08] MEDS ORDERED: MORPHINE 2 MG/ML 1ML VIAL IV ONE (12:25)
[2023-05-08] MEDS ORDERED: CIPR-249 PO (12:56)
[2023-05-08 14:06] VITALS: BP 114/55; TEMP 97.9; O2SAT 95
== END 2023-05-08 23:08 | disposition home or self-care (01) ==
LOC: M ED 05:04
DX: N39.0 Urinary tract infection, site not specified (principal); B34.8 Other viral infections of unspecified site; G43.909 Migraine, unspecified, not intractable, without status migrainosus; F43.10 Post-traumatic stress disorder, unspecified; Z79.01 Long term (current) use of anticoagulants; Z79.810 Long term (current) use of selective estrogen receptor modulators (SERMs); Z79.899 Other long term (current) drug therapy; Z79.1 Long term (current) use of non-steroidal anti-inflammatories (NSAID)
CPT/HCPCS: 71045; 71275; 74177; 80048; 80076; 80164; 81001; 83605; 83735; 83880; 84436; 84443; 85025; 87040; 87086; 87486; 87581; 87633; 87798; 87880; 93041; 94760; 96374; 96375; 96376; 99285; J0744; J1200; Q9967

== ENCOUNTER → 2023-05-23 | Outpatient (REF) | payer MEDICARE, MEDICAID ==
[~2023-05-23] MED LIST changes: +DILA4TAB13 PO
[2023-05-23 16:27] LABS: BASO % 0.4 % (0.0-1.0); EOS # 0.1 10^3/uL (0.0-0.5); EOS % 1.6 % (0.0-3.0); LYMPH # 2.1 10^3/uL (1.5-5.0); LYMPH % 30.9 % (24.0-44.0); MEAN CORPUSCULAR HEMOGLOBIN 29.9 pg (27.0-33.0); MEAN CORPUSCULAR HGB CONC 30.4 g/dl (32.0-36.5); MEAN CORPUSCULAR VOLUME 98.1 fl (80.0-96.0); MONO # 0.6 10^3/uL (0.0-0.8); MONO % 8.1 % (2.0-8.0); NEUTROPHILS % 58.7 % (36.0-66.0); PLATELET COUNT, AUTOMATED 180 10^3/uL (150-450); RED BLOOD COUNT 4.69 10^6/uL (4.00-5.40); WHITE BLOOD COUNT 6.8 10^3/uL (4.0-10.0)
[2023-05-23 16:36] LABS: ALBUMIN 3.8 G/DL (3.2-5.2); ALKALINE PHOSPHATASE 103 U/L (46-116); ALT/SGPT 16 U/L (7.0-40); AST/SGOT 15 U/L (<34); BILIRUBIN,TOTAL 0.5 MG/DL (0.3-1.2); BLOOD UREA NITROGEN 22 MG/DL (9-23); CALCIUM LEVEL 9.6 MG/DL (8.3-10.6); CARBON DIOXIDE LEVEL 31 MMOL/L (20-31); CHLORIDE LEVEL 110 MMOL/L (98-107); GLOMERULAR FILTRATION RATE > 60.0 (>45); GLUCOSE, FASTING 91 MG/DL (74-106); POTASSIUM SERUM 4.6 MMOL/L (3.5-5.1); SODIUM LEVEL 147 MMOL/L (136-145); THYROID STIMULATING HORMONE 1.715 uIU/ML (0.55-4.78); TOTAL PROTEIN 8.8 G/DL (5.7-8.2)
[2023-05-23 16:37] LABS: FREE T4 1.14 NG/DL (0.89-1.76)
[2023-05-23 16:41] LABS: INR 1.24; PROTHROMBIN TIME 15.2 SECONDS (12.5-14.5)
[2023-05-23 16:42] LABS: PARTIAL THROMBOPLASTIN TIME 31.9 SECONDS (24.8-34.2)
== END ==
LOC: M SFHCADAM 14:09
PROVIDERS: ATTEND Family Medicine
DX: Z01.818 Encounter for other preprocedural examination (principal); R00.0 Tachycardia, unspecified; Z79.899 Other long term (current) drug therapy; Z79.01 Long term (current) use of anticoagulants

== ENCOUNTER → 2023-06-19 | Outpatient (REF) | payer MEDICARE, MEDICAID ==
[2023-06-19 16:05] LABS: BASO % 0.4 % (0.0-1.0); EOS # 0.1 10^3/uL (0.0-0.5); EOS % 1.9 % (0.0-3.0); HEMATOCRIT 38.7 % (36.0-47.0); HEMOGLOBIN 12.1 g/dl (12.0-15.5); LYMPH # 1.5 10^3/uL (1.5-5.0); LYMPH % 27.3 % (24.0-44.0); MEAN CORPUSCULAR HEMOGLOBIN 29.7 pg (27.0-33.0); MEAN CORPUSCULAR HGB CONC 31.3 g/dl (32.0-36.5); MEAN CORPUSCULAR VOLUME 95.1 fl (80.0-96.0); MONO # 0.6 10^3/uL (0.0-0.8); MONO % 10.9 % (2.0-8.0); NEUTROPHILS # 3.2 10^3/uL (1.5-8.5); NEUTROPHILS % 59.3 % (36.0-66.0); PLATELET COUNT, AUTOMATED 166 10^3/uL (150-450); RED BLOOD COUNT 4.07 10^6/uL (4.00-5.40); WHITE BLOOD COUNT 5.3 10^3/uL (4.0-10.0)
[2023-06-19 16:35] LABS: CPK CREATINE PHOSPHOKINASE 93 U/L (34-145)
[2023-06-19 16:36] LABS: ALBUMIN 3.3 G/DL (3.2-5.2); ALKALINE PHOSPHATASE 94 U/L (46-116); ALT/SGPT 10 U/L (7.0-40); AST/SGOT 13 U/L (<34); BILIRUBIN,TOTAL 0.5 MG/DL (0.3-1.2); BLOOD UREA NITROGEN 14 MG/DL (9-23); CALCIUM LEVEL 8.8 MG/DL (8.3-10.6); CARBON DIOXIDE LEVEL 26 MMOL/L (20-31); CHLORIDE LEVEL 104 MMOL/L (98-107); CREATININE FOR GFR 0.79 MG/DL (0.55-1.30); GLOMERULAR FILTRATION RATE > 60.0 (>45); GLUCOSE, FASTING 73 MG/DL (74-106); POTASSIUM SERUM 4.2 MMOL/L (3.5-5.1); SODIUM LEVEL 139 MMOL/L (136-145); TOTAL PROTEIN 6.9 G/DL (5.7-8.2)
[2023-06-19 16:39] LABS: ERYTHROCYTE SEDIMENTATION RATE 47 mm/hr (0-30)
== END ==
LOC: M SHH 15:44
PROVIDERS: ATTEND Internal Medicine Infectious Disease
DX: T84.59XS Infection and inflammatory reaction due to other internal joint prosthesis, sequela (principal); M00.811 Arthritis due to other bacteria, right shoulder

== ENCOUNTER → 2023-06-26 | Outpatient (REF) | payer MEDICARE, MEDICAID ==
[2023-06-26 17:19] LABS: BASO % 0.5 % (0.0-1.0); EOS # 0.1 10^3/uL (0.0-0.5); HEMATOCRIT 38.8 % (36.0-47.0); LYMPH # 1.7 10^3/uL (1.5-5.0); LYMPH % 31.2 % (24.0-44.0); MEAN CORPUSCULAR HEMOGLOBIN 29.8 pg (27.0-33.0); MEAN CORPUSCULAR HGB CONC 30.9 g/dl (32.0-36.5); MEAN CORPUSCULAR VOLUME 96.3 fl (80.0-96.0); MONO # 0.6 10^3/uL (0.0-0.8); NEUTROPHILS # 3.1 10^3/uL (1.5-8.5); NEUTROPHILS % 56.1 % (36.0-66.0); PLATELET COUNT, AUTOMATED 153 10^3/uL (150-450); RED BLOOD COUNT 4.03 10^6/uL (4.00-5.40); WHITE BLOOD COUNT 5.5 10^3/uL (4.0-10.0)
[2023-06-26 17:31] LABS: ERYTHROCYTE SEDIMENTATION RATE 29 mm/hr (0-30)
[2023-06-26 17:43] LABS: CPK CREATINE PHOSPHOKINASE 219 U/L (34-145)
[2023-06-26 17:44] LABS: ALBUMIN 3.3 G/DL (3.2-5.2); ALKALINE PHOSPHATASE 96 U/L (46-116); ALT/SGPT 12 U/L (7.0-40); AST/SGOT 12 U/L (<34); BILIRUBIN,TOTAL 0.4 MG/DL (0.3-1.2); BLOOD UREA NITROGEN 9 MG/DL (9-23); CALCIUM LEVEL 8.9 MG/DL (8.3-10.6); CARBON DIOXIDE LEVEL 28 MMOL/L (20-31); CHLORIDE LEVEL 106 MMOL/L (98-107); CREATININE FOR GFR 0.81 MG/DL (0.55-1.30); GLOMERULAR FILTRATION RATE > 60.0 (>45); GLUCOSE, FASTING 98 MG/DL (74-106); PHOSPHORUS LEVEL 3.7 MG/DL (2.4-5.1); POTASSIUM SERUM 4.8 MMOL/L (3.5-5.1); SODIUM LEVEL 141 MMOL/L (136-145); TOTAL PROTEIN 6.5 G/DL (5.7-8.2)
== END ==
LOC: M SHH 16:02
PROVIDERS: ATTEND Internal Medicine Infectious Disease
DX: T84.59XS Infection and inflammatory reaction due to other internal joint prosthesis, sequela (principal); M00.811 Arthritis due to other bacteria, right shoulder

== ENCOUNTER → 2023-06-26 | Outpatient (REF) | payer MEDICARE, MEDICAID | LOC: M SFHCADAM 14:09 | PROVIDERS: ATTEND Family Medicine | DX: R50.9 Fever, unspecified (principal); R19.7 Diarrhea, unspecified ==

== ENCOUNTER → 2023-06-27 | Outpatient (CLI) | payer MEDICARE, MEDICAID | LOC: M LAB 11:38 | PROVIDERS: ATTEND Family Medicine | DX: R50.9 Fever, unspecified (principal); R19.7 Diarrhea, unspecified; Z53.9 Procedure and treatment not carried out, unspecified reason ==

== ENCOUNTER 2023-06-28 12:19 | Outpatient (CLI) | payer MEDICARE, MEDICAID ==
[2023-06-28] MEDS ORDERED: SODIUM CHLORIDE 0.9% INJ 10 ML SYR IV PRN (12:55)
[2023-06-28] MEDS: SODIUM CHLORIDE 0.9% INJ 10 ML SYR IV SCH (13:03)
== END 2023-06-28 13:15 ==
LOC: M INFU 12:19
PROVIDERS: ATTEND Family Medicine
DX: R50.9 Fever, unspecified (principal); R19.7 Diarrhea, unspecified; Z88.0 Allergy status to penicillin; Z88.2 Allergy status to sulfonamides; Z88.1 Allergy status to other antibiotic agents; Z88.5 Allergy status to narcotic agent; Z88.8 Allergy status to other drugs, medicaments and biological substances

== ENCOUNTER → 2023-06-28 | Outpatient (CLI) | payer MEDICARE, MEDICAID ==
[~2023-06-28] MED LIST changes: -MIRA1POW3 PO; +MIRA33506 PO
[2023-06-28 13:03] LABS: BASO % 0.5 % (0.0-1.0); EOS # 0.1 10^3/uL (0.0-0.5); EOS % 2.1 % (0.0-3.0); HEMOGLOBIN 12.3 g/dl (12.0-15.5); LYMPH # 1.4 10^3/uL (1.5-5.0); MEAN CORPUSCULAR HEMOGLOBIN 30.1 pg (27.0-33.0); MEAN CORPUSCULAR HGB CONC 31.5 g/dl (32.0-36.5); MEAN CORPUSCULAR VOLUME 95.6 fl (80.0-96.0); MONO # 0.4 10^3/uL (0.0-0.8); MONO % 9.7 % (2.0-8.0); NEUTROPHILS # 2.4 10^3/uL (1.5-8.5); NEUTROPHILS % 55.5 % (36.0-66.0); PLATELET COUNT, AUTOMATED 154 10^3/uL (150-450); RED BLOOD COUNT 4.08 10^6/uL (4.00-5.40); WHITE BLOOD COUNT 4.3 10^3/uL (4.0-10.0)
[2023-06-28 14:12] LABS: ALBUMIN 3.4 G/DL (3.2-5.2); ALKALINE PHOSPHATASE 95 U/L (46-116); ALT/SGPT 14 U/L (7.0-40); AST/SGOT 17 U/L (<34); BILIRUBIN,TOTAL 0.3 MG/DL (0.3-1.2); BLOOD UREA NITROGEN 13 MG/DL (9-23); CALCIUM LEVEL 9.2 MG/DL (8.3-10.6); CARBON DIOXIDE LEVEL 31 MMOL/L (20-31); CHLORIDE LEVEL 106 MMOL/L (98-107); CREATININE FOR GFR 0.71 MG/DL (0.55-1.30); GLOMERULAR FILTRATION RATE > 60.0 (>45); GLUCOSE, FASTING 83 MG/DL (74-106); POTASSIUM SERUM 5.2 MMOL/L (3.5-5.1); SODIUM LEVEL 138 MMOL/L (136-145); TOTAL PROTEIN 6.6 G/DL (5.7-8.2)
== END ==
LOC: M LAB 11:19
PROVIDERS: ATTEND Family Medicine
DX: R50.9 Fever, unspecified (principal); R19.7 Diarrhea, unspecified

== ENCOUNTER → 2023-06-29 | Outpatient (CLI) | payer MEDICARE, MEDICAID | LOC: M LAB 15:20 | PROVIDERS: ATTEND Internal Medicine Infectious Disease | DX: M00.811 Arthritis due to other bacteria, right shoulder (principal) ==

== ENCOUNTER 2023-06-30 11:51 | Emergency (ER) | payer MEDICARE, MEDICAID ==
[~2023-06-30] VITALS: Ht 162.6 cm; Wt 144.1 kg
[2023-06-30 14:53] LABS: BASO % 0.3 % (0.0-1.0); EOS # 0.1 10^3/uL (0.0-0.5); EOS % 1.7 % (0.0-3.0); HEMATOCRIT 40.9 % (36.0-47.0); HEMOGLOBIN 12.8 g/dl (12.0-15.5); LYMPH # 1.8 10^3/uL (1.5-5.0); LYMPH % 30.9 % (24.0-44.0); MEAN CORPUSCULAR HEMOGLOBIN 29.8 pg (27.0-33.0); MEAN CORPUSCULAR HGB CONC 31.3 g/dl (32.0-36.5); MEAN CORPUSCULAR VOLUME 95.1 fl (80.0-96.0); MONO # 0.4 10^3/uL (0.0-0.8); MONO % 7.6 % (2.0-8.0); NEUTROPHILS # 3.4 10^3/uL (1.5-8.5); NEUTROPHILS % 59.2 % (36.0-66.0); PLATELET COUNT, AUTOMATED 149 10^3/uL (150-450); WHITE BLOOD COUNT 5.8 10^3/uL (4.0-10.0)
[2023-06-30 15:02] LABS: ERYTHROCYTE SEDIMENTATION RATE 31 mm/hr (0-30)
[2023-06-30 16:40] VITALS: BP 96/55; TEMP 96.8; O2SAT 99
== END 2023-06-30 17:01 | disposition home or self-care (01) ==
LOC: M ED 11:51
DX: R78.81 Bacteremia (principal); I10 Essential (primary) hypertension; F43.10 Post-traumatic stress disorder, unspecified; Z86.79 Personal history of other diseases of the circulatory system; Z88.0 Allergy status to penicillin; Z88.1 Allergy status to other antibiotic agents; Z88.2 Allergy status to sulfonamides; Z88.5 Allergy status to narcotic agent; Z88.8 Allergy status to other drugs, medicaments and biological substances; Z79.01 Long term (current) use of anticoagulants; Z79.810 Long term (current) use of selective estrogen receptor modulators (SERMs); Z79.899 Other long term (current) drug therapy; Z79.2 Long term (current) use of antibiotics

== ENCOUNTER → 2023-07-03 | Outpatient (REF) | payer MEDICARE, MEDICAID ==
[2023-07-03 15:06] LABS: BASO % 0.6 % (0.0-1.0); EOS # 0.1 10^3/uL (0.0-0.5); EOS % 1.3 % (0.0-3.0); HEMOGLOBIN 12.7 g/dl (12.0-15.5); LYMPH # 1.3 10^3/uL (1.5-5.0); LYMPH % 25.5 % (24.0-44.0); MEAN CORPUSCULAR HEMOGLOBIN 29.4 pg (27.0-33.0); MEAN CORPUSCULAR VOLUME 94.9 fl (80.0-96.0); MONO # 0.4 10^3/uL (0.0-0.8); MONO % 8.4 % (2.0-8.0); NEUTROPHILS # 3.4 10^3/uL (1.5-8.5); NEUTROPHILS % 63.8 % (36.0-66.0); PLATELET COUNT, AUTOMATED 129 10^3/uL (150-450); RED BLOOD COUNT 4.32 10^6/uL (4.00-5.40); WHITE BLOOD COUNT 5.3 10^3/uL (4.0-10.0)
[2023-07-03 15:15] LABS: ERYTHROCYTE SEDIMENTATION RATE 28 mm/hr (0-30)
[2023-07-03 15:33] LABS: ALBUMIN 3.4 G/DL (3.2-5.2); ALKALINE PHOSPHATASE 97 U/L (46-116); ALT/SGPT 13 U/L (7.0-40); AST/SGOT 14 U/L (<34); BILIRUBIN,TOTAL 0.4 MG/DL (0.3-1.2); BLOOD UREA NITROGEN 11 MG/DL (9-23); CALCIUM LEVEL 8.9 MG/DL (8.3-10.6); CARBON DIOXIDE LEVEL 29 MMOL/L (20-31); CHLORIDE LEVEL 107 MMOL/L (98-107); CPK CREATINE PHOSPHOKINASE 152 U/L (34-145); CREATININE FOR GFR 0.69 MG/DL (0.55-1.30); GLOMERULAR FILTRATION RATE > 60.0 (>45); GLUCOSE, FASTING 113 MG/DL (74-106); SODIUM LEVEL 142 MMOL/L (136-145); TOTAL PROTEIN 6.5 G/DL (5.7-8.2)
== END ==
LOC: M SHH 14:28
PROVIDERS: ATTEND Internal Medicine Infectious Disease
DX: T84.59XS Infection and inflammatory reaction due to other internal joint prosthesis, sequela (principal); M00.811 Arthritis due to other bacteria, right shoulder

== ENCOUNTER → 2023-08-08 | Outpatient (REF) | payer MEDICARE, MEDICAID ==
[2023-08-08 16:15] LABS: BASO % 0.5 % (0.0-1.0); EOS # 0.1 10^3/uL (0.0-0.5); HEMATOCRIT 42.7 % (36.0-47.0); HEMOGLOBIN 13.1 g/dl (12.0-15.5); LYMPH # 2.2 10^3/uL (1.5-5.0); MEAN CORPUSCULAR HGB CONC 30.7 g/dl (32.0-36.5); MEAN CORPUSCULAR VOLUME 97.7 fl (80.0-96.0); MONO # 0.8 10^3/uL (0.0-0.8); MONO % 11.6 % (2.0-8.0); NEUTROPHILS # 3.5 10^3/uL (1.5-8.5); NEUTROPHILS % 52.6 % (36.0-66.0); PLATELET COUNT, AUTOMATED 168 10^3/uL (150-450); RED BLOOD COUNT 4.37 10^6/uL (4.00-5.40); WHITE BLOOD COUNT 6.6 10^3/uL (4.0-10.0)
[2023-08-08 16:34] LABS: ALBUMIN 3.5 G/DL (3.2-5.2); ALKALINE PHOSPHATASE 126 U/L (46-116); ALT/SGPT 12 U/L (7.0-40); AST/SGOT 13 U/L (<34); BILIRUBIN,TOTAL 0.4 MG/DL (0.3-1.2); BLOOD UREA NITROGEN 19 MG/DL (9-23); CALCIUM LEVEL 9.2 MG/DL (8.3-10.6); CARBON DIOXIDE LEVEL 33 MMOL/L (20-31); CHLORIDE LEVEL 106 MMOL/L (98-107); CREATININE FOR GFR 0.73 MG/DL (0.55-1.30); GLOMERULAR FILTRATION RATE > 60.0 (>45); GLUCOSE, FASTING 79 MG/DL (74-106); SODIUM LEVEL 141 MMOL/L (136-145); TOTAL PROTEIN 6.7 G/DL (5.7-8.2)
== END ==
LOC: M SFHCADAM 13:53
PROVIDERS: ATTEND Family Medicine
DX: Z01.818 Encounter for other preprocedural examination (principal)

== ENCOUNTER → 2023-08-09 | Outpatient (CLI) | payer MEDICARE, MEDICAID | LOC: M PAIN 17:00 | PROVIDERS: ATTEND Anesthesiology | DX: M48.062 Spinal stenosis, lumbar region with neurogenic claudication (principal); M79.18 Myalgia, other site; M54.6 Pain in thoracic spine; G89.29 Other chronic pain; E66.01 Morbid (severe) obesity due to excess calories; I10 Essential (primary) hypertension; Z86.711 Personal history of pulmonary embolism; Z79.01 Long term (current) use of anticoagulants; Z79.899 Other long term (current) drug therapy; Z88.2 Allergy status to sulfonamides; Z88.1 Allergy status to other antibiotic agents; Z88.5 Allergy status to narcotic agent; Z88.8 Allergy status to other drugs, medicaments and biological substances; Z91.048 Other nonmedicinal substance allergy status; Z68.43 Body mass index [BMI] 50.0-59.9, adult ==

== ENCOUNTER 2023-08-27 18:15 | Emergency (ER) | payer MEDICARE, MEDICAID ==
[~2023-08-27] VITALS: Ht 162.6 cm; Wt 140.7 kg
[2023-08-27 20:44] LABS: BASO % 0.3 % (0.0-1.0); EOS # 0.1 10^3/uL (0.0-0.5); EOS % 2.1 % (0.0-3.0); HEMATOCRIT 36.8 % (36.0-47.0); HEMOGLOBIN 11.3 g/dl (12.0-15.5); LYMPH % 30.7 % (24.0-44.0); MEAN CORPUSCULAR HEMOGLOBIN 29.7 pg (27.0-33.0); MEAN CORPUSCULAR HGB CONC 30.7 g/dl (32.0-36.5); MEAN CORPUSCULAR VOLUME 96.6 fl (80.0-96.0); MONO # 0.8 10^3/uL (0.0-0.8); MONO % 12.8 % (2.0-8.0); NEUTROPHILS # 3.5 10^3/uL (1.5-8.5); NEUTROPHILS % 53.8 % (36.0-66.0); PLATELET COUNT, AUTOMATED 123 10^3/uL (150-450); RED BLOOD COUNT 3.81 10^6/uL (4.00-5.40); WHITE BLOOD COUNT 6.6 10^3/uL (4.0-10.0)
[2023-08-27 21:03] LABS: INR 1.16; PARTIAL THROMBOPLASTIN TIME 26.3 SECONDS (24.8-34.2); PROTHROMBIN TIME 14.5 SECONDS (12.5-14.5)
[2023-08-27] MEDS ORDERED: ONDANSETRON 4MG 2ML VIAL IV ONE (21:05)
[2023-08-27] MEDS ORDERED: MORPHINE 2 MG/ML 1ML VIAL IV ONE (21:05)
[2023-08-27 21:11] LABS: C REACTIVE PROTEIN QUANTITATIV 10.7 MG/DL (<1.0)
[2023-08-27 21:19] LABS: PROCALCITONIN 0.05 ng/ml
[2023-08-27] MEDS: ACETAMINOPHEN *IV* 1,000 MG in IV 1 EA IV ONE (22:16)
[2023-08-27 23:00] LABS: ERYTHROCYTE SEDIMENTATION RATE 31 mm/hr (0-30)
[2023-08-28] MEDS: diphenhydrAMINE 50MG/ML VIAL IV ONE (03:01)
[2023-08-28] MEDS: MORPHINE 2 MG/ML 1ML VIAL IV PRN (03:08)
[2023-08-28 09:16] VITALS: BP 120/52; TEMP 97.2; O2SAT 100
== END 2023-08-28 09:22 | disposition short-term general hospital (02) ==
LOC: M ED 18:15
DX: T84.028A Dislocation of other internal joint prosthesis, initial encounter (principal); Z96.611 Presence of right artificial shoulder joint; Y92.9 Unspecified place or not applicable; Y93.9 Activity, unspecified; E11.42 Type 2 diabetes mellitus with diabetic polyneuropathy; I10 Essential (primary) hypertension; Z86.711 Personal history of pulmonary embolism; Z98.84 Bariatric surgery status; Z79.01 Long term (current) use of anticoagulants; Z79.899 Other long term (current) drug therapy; Z88.0 Allergy status to penicillin; Z88.2 Allergy status to sulfonamides; Z88.1 Allergy status to other antibiotic agents; Z91.89 Other specified personal risk factors, not elsewhere classified; Z88.5 Allergy status to narcotic agent; Z88.8 Allergy status to other drugs, medicaments and biological substances
CPT/HCPCS: 73030; 80047; 83605; 84145; 85025; 85610; 85652; 85730; 86140; 87040; 96365; 96375; 99284; J0131; J1200

== ENCOUNTER 2023-09-05 11:54 | Emergency (ER) | payer MEDICARE, MEDICAID ==
[2023-09-05] VITALS (8 sets, daily range): BP systolic 91–112; BP diastolic 55–71; TEMP 97.5–99.4; O2SAT 93–100
[~2023-09-05] VITALS: Ht 162.6 cm; Wt 153.9 kg
[2023-09-05 12:53] LABS: MEAN CORPUSCULAR HEMOGLOBIN 30.4 pg (27.0-33.0); MEAN CORPUSCULAR HGB CONC 31.6 g/dl (32.0-36.5); MEAN CORPUSCULAR VOLUME 96.4 fl (80.0-96.0); PLATELET COUNT, AUTOMATED 160 10^3/uL (150-450); RED BLOOD COUNT 1.94 10^6/uL (4.00-5.40); WHITE BLOOD COUNT 5.5 10^3/uL (4.0-10.0)
[2023-09-05] MEDS: NS 500 ML IV ONE (13:15)
[2023-09-05 13:27] LABS: HEMATOCRIT 18.7 % (36.0-47.0); HEMOGLOBIN 5.9 g/dl (12.0-15.5)
[2023-09-05 14:11] LABS: INR 1.31; PARTIAL THROMBOPLASTIN TIME 33.8 SECONDS (24.8-34.2); PROTHROMBIN TIME 15.9 SECONDS (12.5-14.5)
[2023-09-05 14:14] LABS: CPK CREATINE PHOSPHOKINASE 126 U/L (34-145)
[2023-09-05 14:15] LABS: ALBUMIN 1.9 G/DL (3.2-5.2); ALKALINE PHOSPHATASE 106 U/L (46-116); ALT/SGPT 10 U/L (7.0-40); AST/SGOT 16 U/L (<34); BILIRUBIN,DIRECT 0.3 MG/DL (<0.4); BILIRUBIN,TOTAL 0.6 MG/DL (0.3-1.2); BLOOD UREA NITROGEN 25 MG/DL (9-23); CALCIUM LEVEL 8.5 MG/DL (8.3-10.6); CARBON DIOXIDE LEVEL 30 MMOL/L (20-31); CHLORIDE LEVEL 100 MMOL/L (98-107); CK-MB VALUE MASS 1.2 NG/ML (<3.6); CREATININE FOR GFR 0.88 MG/DL (0.55-1.30); GLOMERULAR FILTRATION RATE > 60.0 (>45); GLUCOSE, FASTING 87 MG/DL (74-106); MB/CK RELATIVE INDEX 0.95 (< OR =4); POTASSIUM SERUM 4.5 MMOL/L (3.5-5.1); SODIUM LEVEL 135 MMOL/L (136-145); TOTAL PROTEIN 4.8 G/DL (5.7-8.2)
[2023-09-05] MEDS: MAALOX 30 ML SUSP *UDC PO ONE (16:58)
[2023-09-05] MEDS: PANTOPRAZOLE 40MG VIAL IV ONE (16:59)
== END 2023-09-05 18:59 | disposition short-term general hospital (02) ==
LOC: M ED 11:54 → EDBD 11:54 → M ED 18:59
DX: S40.011A Contusion of right shoulder, initial encounter (principal); D64.9 Anemia, unspecified; R33.9 Retention of urine, unspecified; X58.XXXA Exposure to other specified factors, initial encounter; Y92.9 Unspecified place or not applicable; Y93.9 Activity, unspecified; Y99.9 Unspecified external cause status; Z96.611 Presence of right artificial shoulder joint; R50.9 Fever, unspecified; I48.91 Unspecified atrial fibrillation; I10 Essential (primary) hypertension; E66.9 Obesity, unspecified; Z86.711 Personal history of pulmonary embolism; Z79.01 Long term (current) use of anticoagulants; Z79.899 Other long term (current) drug therapy; Z88.0 Allergy status to penicillin; Z88.2 Allergy status to sulfonamides; Z88.1 Allergy status to other antibiotic agents; Z91.89 Other specified personal risk factors, not elsewhere classified; Z88.5 Allergy status to narcotic agent; Z88.8 Allergy status to other drugs, medicaments and biological substances
CPT/HCPCS: 36415; 36430; 51702; 73030; 76882; 80048; 80053; 80076; 81001; 82550; 82553; 84484; 85025; 85027; 85610; 85730; 86850; 86900; 86901; 86920; 87086; 93005; 93041; 93971; 96374; 99285; C9113; P9016

== ENCOUNTER → 2023-09-05 | Outpatient (REF) | payer MEDICARE, MEDICAID ==
[2023-09-05 10:27] LABS: BASO % 0.2 % (0.0-1.0); EOS # 0.1 10^3/uL (0.0-0.5); EOS % 2.1 % (0.0-3.0); LYMPH # 1.3 10^3/uL (1.5-5.0); MEAN CORPUSCULAR HGB CONC 30.3 g/dl (32.0-36.5); MEAN CORPUSCULAR VOLUME 98.9 fl (80.0-96.0); MONO # 0.4 10^3/uL (0.0-0.8); MONO % 9.6 % (2.0-8.0); NEUTROPHILS # 2.5 10^3/uL (1.5-8.5); NEUTROPHILS % 57.6 % (36.0-66.0); PLATELET COUNT, AUTOMATED 129 10^3/uL (150-450); WHITE BLOOD COUNT 4.4 10^3/uL (4.0-10.0)
[2023-09-05 10:36] LABS: HEMATOCRIT 17.8 % (36.0-47.0)
[2023-09-05 10:39] LABS: HEMOGLOBIN 5.4 g/dl (12.0-15.5)
[2023-09-05 11:56] LABS: ALBUMIN 1.9 G/DL (3.2-5.2); ALKALINE PHOSPHATASE 104 U/L (46-116); ALT/SGPT < 9 U/L (7.0-40); AST/SGOT 17 U/L (<34); BILIRUBIN,TOTAL 0.5 MG/DL (0.3-1.2); BLOOD UREA NITROGEN 24 MG/DL (9-23); CALCIUM LEVEL 8.4 MG/DL (8.3-10.6); CARBON DIOXIDE LEVEL 29 MMOL/L (20-31); CHLORIDE LEVEL 100 MMOL/L (98-107); CREATININE FOR GFR 0.86 MG/DL (0.55-1.30); GLOMERULAR FILTRATION RATE > 60.0 (>45); GLUCOSE, FASTING 97 MG/DL (74-106); POTASSIUM SERUM 4.6 MMOL/L (3.5-5.1); SODIUM LEVEL 134 MMOL/L (136-145); TOTAL PROTEIN 4.8 G/DL (5.7-8.2)
== END ==
LOC: SKLAB2 07:40
PROVIDERS: ATTEND Internal Medicine
DX: R50.9 Fever, unspecified (principal)

== ENCOUNTER → 2023-10-05 | Outpatient (CLI) | payer MEDICARE, MEDICAID ==
[~2023-10-05] MED LIST changes: +BUPR-597 PO; -BUPR300T92 PO
[2023-10-05 15:15] LABS: HEMATOCRIT 37.1 % (36.0-47.0); HEMOGLOBIN 11.7 g/dl (12.0-15.5); MEAN CORPUSCULAR HEMOGLOBIN 30.3 pg (27.0-33.0); MEAN CORPUSCULAR HGB CONC 31.5 g/dl (32.0-36.5); MEAN CORPUSCULAR VOLUME 96.1 fl (80.0-96.0); PLATELET COUNT, AUTOMATED 160 10^3/uL (150-450); RED BLOOD COUNT 3.86 10^6/uL (4.00-5.40); WHITE BLOOD COUNT 5.7 10^3/uL (4.0-10.0)
[2023-10-05 15:20] LABS: ERYTHROCYTE SEDIMENTATION RATE 33 mm/hr (0-30)
[2023-10-05 15:42] LABS: ALBUMIN 3.4 G/DL (3.2-5.2); ALKALINE PHOSPHATASE 110 U/L (46-116); ALT/SGPT 16 U/L (7.0-40); AST/SGOT 21 U/L (<34); BILIRUBIN,TOTAL 0.7 MG/DL (0.3-1.2); BLOOD UREA NITROGEN 19 MG/DL (9-23); CALCIUM LEVEL 9.3 MG/DL (8.3-10.6); CARBON DIOXIDE LEVEL 31 MMOL/L (20-31); CHLORIDE LEVEL 106 MMOL/L (98-107); CREATININE FOR GFR 0.78 MG/DL (0.55-1.30); GLOMERULAR FILTRATION RATE > 60.0 (>45); GLUCOSE, FASTING 81 MG/DL (74-106); POTASSIUM SERUM 4.7 MMOL/L (3.5-5.1); SODIUM LEVEL 142 MMOL/L (136-145); TOTAL PROTEIN 6.6 G/DL (5.7-8.2)
== END ==
LOC: M LAB 14:55
PROVIDERS: ATTEND Physician Assistant Medical
DX: R60.0 Localized edema (principal); I95.9 Hypotension, unspecified; I48.91 Unspecified atrial fibrillation; D63.8 Anemia in other chronic diseases classified elsewhere; Z87.898 Personal history of other specified conditions; I50.30 Unspecified diastolic (congestive) heart failure

== ENCOUNTER → 2023-10-05 | Outpatient (CLI) | payer MEDICARE, MEDICAID | LOC: M WHC 13:37 | PROVIDERS: ATTEND Physician Assistant Medical | DX: R60.0 Localized edema (principal) ==

== ENCOUNTER → 2023-11-13 | Outpatient (REF) | payer MEDICARE, MEDICAID ==
[~2023-11-13] MED LIST changes: +ONDA-282 PO; -ONDA4TAB6 PO
[2023-11-13 15:28] LABS: BASO % 0.4 % (0.0-1.0); EOS # 0.1 10^3/uL (0.0-0.5); EOS % 2.8 % (0.0-3.0); HEMATOCRIT 32.2 % (36.0-47.0); HEMOGLOBIN 9.9 g/dl (12.0-15.5); LYMPH # 1.2 10^3/uL (1.5-5.0); LYMPH % 26.6 % (24.0-44.0); MEAN CORPUSCULAR HEMOGLOBIN 28.7 pg (27.0-33.0); MEAN CORPUSCULAR HGB CONC 30.7 g/dl (32.0-36.5); MEAN CORPUSCULAR VOLUME 93.3 fl (80.0-96.0); MONO # 0.5 10^3/uL (0.0-0.8); MONO % 11.6 % (2.0-8.0); NEUTROPHILS # 2.7 10^3/uL (1.5-8.5); PLATELET COUNT, AUTOMATED 190 10^3/uL (150-450); RED BLOOD COUNT 3.45 10^6/uL (4.00-5.40); WHITE BLOOD COUNT 4.7 10^3/uL (4.0-10.0)
[2023-11-13 15:34] LABS: ALBUMIN 2.6 G/DL (3.2-5.2); ALKALINE PHOSPHATASE 161 U/L (46-116); ALT/SGPT 20 U/L (7.0-40); AST/SGOT 11 U/L (<34); BILIRUBIN,TOTAL 0.5 MG/DL (0.3-1.2); BLOOD UREA NITROGEN 8 MG/DL (9-23); CALCIUM LEVEL 8.8 MG/DL (8.3-10.6); CARBON DIOXIDE LEVEL 32 MMOL/L (20-31); CHLORIDE LEVEL 106 MMOL/L (98-107); CPK CREATINE PHOSPHOKINASE 33 U/L (34-145); CREATININE FOR GFR 0.58 MG/DL (0.55-1.30); GLOMERULAR FILTRATION RATE > 60.0 (>45); GLUCOSE, FASTING 85 MG/DL (74-106); POTASSIUM SERUM 4.2 MMOL/L (3.5-5.1); SODIUM LEVEL 139 MMOL/L (136-145); TOTAL PROTEIN 5.7 G/DL (5.7-8.2)
[2023-11-13 15:48] LABS: ERYTHROCYTE SEDIMENTATION RATE 73 mm/hr (0-30)
== END ==
LOC: M LAB REF 14:34
PROVIDERS: ATTEND Physician Assistant
DX: T84.59XD Infection and inflammatory reaction due to other internal joint prosthesis, subsequent encounter (principal); Z96.619 Presence of unspecified artificial shoulder joint; T81.40XA Infection following a procedure, unspecified, initial encounter

== ENCOUNTER 2024-01-18 15:30 | Emergency (ER) | payer MEDICARE, MEDICAID ==
[~2024-01-18] VITALS: Ht 162.6 cm; Wt 159.1 kg
[~2024-01-18 15:30] MED LIST changes: +GABA-1490 PO; -GABA600T4 PO
[2024-01-18 16:49] LABS: BASO % 0.6 % (0.0-1.0); EOS # 0.1 10^3/uL (0.0-0.5); EOS % 1.3 % (0.0-3.0); HEMATOCRIT 35.3 % (36.0-47.0); HEMOGLOBIN 10.9 g/dl (12.0-15.5); LYMPH # 1.3 10^3/uL (1.5-5.0); LYMPH % 27.9 % (24.0-44.0); MEAN CORPUSCULAR HEMOGLOBIN 29.5 pg (27.0-33.0); MEAN CORPUSCULAR HGB CONC 30.9 g/dl (32.0-36.5); MEAN CORPUSCULAR VOLUME 95.4 fl (80.0-96.0); MONO # 0.6 10^3/uL (0.0-0.8); MONO % 13.4 % (2.0-8.0); NEUTROPHILS # 2.7 10^3/uL (1.5-8.5); NEUTROPHILS % 56.4 % (36.0-66.0); PLATELET COUNT, AUTOMATED 161 10^3/uL (150-450); WHITE BLOOD COUNT 4.8 10^3/uL (4.0-10.0)
[2024-01-18] MEDS: FAMOTIDINE 20MG/2ML VIAL IVP ONE (17:01)
[2024-01-18] MEDS: ONDANSETRON 4MG 2ML VIAL IV ONE (17:01)
[2024-01-18] MEDS: NS 1,000 ML IV ONE (17:01)
[2024-01-18 17:12] LABS: ALBUMIN 3.5 G/DL (3.2-5.2); BILIRUBIN,DIRECT 0.2 MG/DL (<0.4); BILIRUBIN,TOTAL 0.4 MG/DL (0.3-1.2); TOTAL PROTEIN 7.2 G/DL (5.7-8.2)
[2024-01-18] MEDS ORDERED: ISOVUE-370 76% 100ML VIAL As Ordered ONE (17:16)
[2024-01-18] MEDS: METOCLOPRAMIDE INJ 10MG/2ML VIAL IV ONE (18:21)
[2024-01-18 19:46] VITALS: BP 121/77; TEMP 98.9; O2SAT 99
[2024-01-18] MEDS ORDERED: CIPR500S PO (20:20)
[2024-01-18] MEDS ORDERED: REGL10TA6 PO (20:20)
[2024-01-18] MEDS ORDERED: FLOM0.4C39 PO (20:20)
[2024-01-18] MEDS: CIPROFLOXACIN 500MG TABLET PO ONE (20:28)
== END 2024-01-18 20:31 | disposition home or self-care (01) ==
LOC: M ED 15:30
DX: N20.1 Calculus of ureter (principal); R19.7 Diarrhea, unspecified; I10 Essential (primary) hypertension; M54.30 Sciatica, unspecified side; Z86.711 Personal history of pulmonary embolism; G62.9 Polyneuropathy, unspecified; Z98.84 Bariatric surgery status; K43.9 Ventral hernia without obstruction or gangrene; Z79.01 Long term (current) use of anticoagulants; Z79.899 Other long term (current) drug therapy; Z88.0 Allergy status to penicillin; Z88.2 Allergy status to sulfonamides; Z88.1 Allergy status to other antibiotic agents; Z88.5 Allergy status to narcotic agent; Z88.8 Allergy status to other drugs, medicaments and biological substances; Z91.89 Other specified personal risk factors, not elsewhere classified
CPT/HCPCS: 74177; 80047; 80076; 81001; 83605; 83690; 85025; 87088; 87186; 87486; 87581; 87633; 87798; 96361; 96374; 96375; 99284; G0463; J2405; J2765; Q9967

== ENCOUNTER 2024-02-05 17:30 | Emergency (ER) | payer MEDICARE, MEDICAID ==
[~2024-02-05] VITALS: Ht 162.6 cm; Wt 148.2 kg
[~2024-02-05 17:30] MED LIST changes: -DOXY100T PO; -LYRI150C PO; -MELO7.5T35 PO; -METO10TA2 PO; -MULTTAB61 PO; -VENL75CA47 PO
[2024-02-05 21:45] VITALS: BP 128/81; TEMP 97.6; O2SAT 99
[2024-02-13] MEDS ORDERED: DOXY100T PO (08:06)
== END 2024-02-05 21:47 | disposition home or self-care (01) ==
LOC: M ED 17:30
DX: S80.11XA Contusion of right lower leg, initial encounter (principal); W19.XXXA Unspecified fall, initial encounter; Y92.531 Health care provider office as the place of occurrence of the external cause; Y93.9 Activity, unspecified; Y99.9 Unspecified external cause status; M77.31 Calcaneal spur, right foot; G62.9 Polyneuropathy, unspecified; M54.30 Sciatica, unspecified side; Z79.01 Long term (current) use of anticoagulants; Z79.899 Other long term (current) drug therapy; Z88.0 Allergy status to penicillin; Z88.2 Allergy status to sulfonamides; Z88.1 Allergy status to other antibiotic agents; Z88.5 Allergy status to narcotic agent; Z91.89 Other specified personal risk factors, not elsewhere classified
CPT/HCPCS: 73564; 73590; 73610; 99284; G0463

== ENCOUNTER → 2024-02-05 | Outpatient (CLI) | payer MEDICARE, MEDICAID ==
[~2024-02-05] MED LIST changes: +CIPR500S PO; +DOXY100T PO; +GABA-1172 OR; -GABA-282 OR; +LYRI150C PO; +MELO7.5T35 PO; +METO10TA2 PO; +MULTTAB61 PO; +VENL75CA47 PO
== END ==
LOC: M PAIN 15:00
PROVIDERS: ATTEND Nurse Practitioner Family
DX: M51.16 Intervertebral disc disorders with radiculopathy, lumbar region (principal); M79.604 Pain in right leg; Z79.891 Long term (current) use of opiate analgesic; M79.605 Pain in left leg; G89.29 Other chronic pain; Z95.3 Presence of xenogenic heart valve; E66.01 Morbid (severe) obesity due to excess calories; F41.8 Other specified anxiety disorders; D63.8 Anemia in other chronic diseases classified elsewhere; I10 Essential (primary) hypertension; Z86.711 Personal history of pulmonary embolism; N32.81 Overactive bladder; Z79.01 Long term (current) use of anticoagulants; Z79.899 Other long term (current) drug therapy; Z88.2 Allergy status to sulfonamides; Z88.1 Allergy status to other antibiotic agents; Z88.0 Allergy status to penicillin; Z88.5 Allergy status to narcotic agent; Z88.8 Allergy status to other drugs, medicaments and biological substances; Z68.43 Body mass index [BMI] 50.0-59.9, adult

== ENCOUNTER → 2024-02-10 | Outpatient (CLI) | payer MEDICARE, MEDICAID ==
[~2024-02-10] MED LIST changes: -GABA-1172 OR; +GABA-282 OR
[2024-02-10 15:49] LABS: BASO % 0.6 % (0.0-1.0); EOS % 1.3 % (0.0-3.0); HEMATOCRIT 37.1 % (36.0-47.0); HEMOGLOBIN 11.2 g/dl (12.0-15.5); LYMPH # 1.3 10^3/uL (1.5-5.0); LYMPH % 41.2 % (24.0-44.0); MEAN CORPUSCULAR HEMOGLOBIN 28.1 pg (27.0-33.0); MEAN CORPUSCULAR HGB CONC 30.2 g/dl (32.0-36.5); MEAN CORPUSCULAR VOLUME 93.2 fl (80.0-96.0); MONO # 0.3 10^3/uL (0.0-0.8); MONO % 10.5 % (2.0-8.0); NEUTROPHILS # 1.4 10^3/uL (1.5-8.5); NEUTROPHILS % 46.1 % (36.0-66.0); PLATELET COUNT, AUTOMATED 131 10^3/uL (150-450); RED BLOOD COUNT 3.98 10^6/uL (4.00-5.40); WHITE BLOOD COUNT 3.1 10^3/uL (4.0-10.0)
[2024-02-10 15:53] LABS: ERYTHROCYTE SEDIMENTATION RATE 13 mm/hr (0-30)
== END ==
LOC: M LAB 15:23
PROVIDERS: ATTEND Internal Medicine Infectious Disease
DX: A49.02 Methicillin resistant Staphylococcus aureus infection, unspecified site (principal)

== ENCOUNTER → 2024-02-12 | Outpatient (CLI) | payer MEDICARE, MEDICAID ==
[~2024-02-12] MED LIST changes: +DOXY100T PO
[2024-02-12 14:01] LABS: APPEARANCE, URINE HAZY (CLEAR); BACTERIA, URINE AUTO NEGATIVE (NEGATIVE); BILIRUBIN, URINE AUTO NEGATIVE (NEGATIVE); BLOOD, URINE BLOOD 2+ (NEGATIVE); CALCIUM OXALATE CRYSTALS SMALL; COLOR, URINE YELLOW (YELLOW); GLUCOSE, URINE (UA) AUTO NEGATIVE (NEGATIVE); KETONE, URINE AUTO TRACE mg/dL (NEGATIVE); LEUKOCYTE ESTERASE, URINE AUTO 1+ (NEGATIVE); MUCUS, URINE SMALL (NEGATIVE); NITRITE, URINE AUTO NEGATIVE (NEGATIVE); PROTEIN, URINE AUTO 1+ mg/dL (NEGATIVE); RBC, URINE AUTO 33 /HPF (0-3); SPECIFIC GRAVITY URINE AUTO 1.015 (1.002-1.035); SQUAMOUS EPITHELIAL CELL UR AU 8 /HPF (0-6); UROBILINOGEN, URINE AUTO 0.2 mg/dL (0.0-2.0); WBC, URINE AUTO 48 /HPF (0-3)
== END ==
LOC: M RAD 12:56
PROVIDERS: ATTEND Physician Assistant
DX: Z01.818 Encounter for other preprocedural examination (principal); I51.7 Cardiomegaly; Z96.611 Presence of right artificial shoulder joint; M19.011 Primary osteoarthritis, right shoulder; M19.012 Primary osteoarthritis, left shoulder

== ENCOUNTER → 2024-02-14 | Outpatient (REF) | payer MEDICARE, MEDICAID ==
[~2024-02-14] MED LIST changes: +GABA-1172 OR; -GABA-282 OR
[2024-02-14 18:46] LABS: APPEARANCE, URINE MANUAL HAZY (CLEAR)
[2024-02-14 18:47] LABS: COLOR, URINE MANUAL YELLOW (YELLOW); SPECIFIC GRAVITY,URINE MANUAL 1.015 (1.002-1.035)
[2024-02-14 18:48] LABS: BILIRUBIN, URINE MANUAL NEGATIVE (NEGATIVE); BLOOD URINE MANUAL TRACE (NEGATIVE); GLUCOSE, URINE (UA) MANUAL NEGATIVE (NEGATIVE); KETONE, URINE MANUAL 1+ mg/dL (NEGATIVE); LEUKOCYTE ESTERASE, URINE MAN NEGATIVE (NEGATIVE); NITRITE, URINE MANUAL NEGATIVE (NEGATIVE); PROTEIN, URINE MANUAL TRACE mg/dL (NEGATIVE); UROBILINOGEN, URINE MANUAL NORMAL (NORMAL)
[2024-02-14 19:12] LABS: BACTERIA, URINE NONE SEEN; HYALINE CAST, URINE NONE SEEN /lpf (0-1); SQUAMOUS EPITHELIAL CELL URINE SMALL AMOUNT /hpf (SMALL AMT)
== END ==
LOC: M SMT 17:20
PROVIDERS: ATTEND Physician Assistant
DX: N20.1 Calculus of ureter (principal)

== ENCOUNTER 2024-02-21 07:48 | Day surgery (SDC) | payer MEDICARE, MEDICAID ==
[~2024-02-21] VITALS: Ht 162.6 cm; Wt 152.0 kg
[2024-02-21] MEDS ORDERED: propofoL 200 MG/20 ML VIAL As Ordered ONE (08:35)
[2024-02-21] MEDS ORDERED: ACETAMINOPHEN 1000MG 100ML IV BAG As Ordered ONE (08:35)
[2024-02-21] MEDS ORDERED: LIDOCAINE 2% 100MG/5ML SDV (FOR ANES.) As Ordered ONE (08:35)
[2024-02-21] MEDS ORDERED: ONDANSETRON 4MG 2ML VIAL As Ordered ONE (08:38)
[2024-02-21] MEDS ORDERED: fentaNYL 100 MCG/2 ML INJECTION As Ordered ONE (09:05)
[2024-02-21] MEDS ORDERED: diphenhydrAMINE 50MG/ML VIAL As Ordered ONE (09:05)
[2024-02-21] MEDS ORDERED: LR 1,000 ML IV SCH ×2 (09:05→12:00)
[2024-02-21] MEDS ORDERED: SCOPOLAMINE 1MG TRANSDERMAL PATCH TOP ONE (09:10)
[2024-02-21] MEDS ORDERED: SCOPOLAMINE 1MG TRANSDERMAL PATCH As Ordered ONE (09:25)
[2024-02-21] MEDS ORDERED: ceFAZolin SOD 2 GM in IV 1 EA IV ONE (09:30)
[2024-02-21] MEDS ORDERED: ceFAZolin SOD 1 GM in D5W MINI-BAG PLUS 50 ML IV ONE (09:30)
[2024-02-21] MEDS: ceFAZolin 1GM VIAL As Ordered ONE (09:45)
[2024-02-21] MEDS: ceFAZolin 2 GM/D5W 50 ML IV BAG As Ordered ONE (09:45)
[2024-02-21] MEDS ORDERED: ATROPINE SULF 0.4 MG/ML 1ML VIAL As Ordered ONE (09:50)
[2024-02-21] MEDS ORDERED: GLYCOPYRROLATE INJ 0.2 MG/ML 2 ML VIAL As Ordered ONE (09:50)
[2024-02-21] MEDS ORDERED: ePHEDrine SULFATE 25 MG/5 ML(5MG/ML) SYRINGE As Ordered ONE (09:59)
[2024-02-21] MEDS ORDERED: VASOPRESSIN INJ 20UNITS/ML 1ML VIAL As Ordered ONE (09:59)
[2024-02-21] MEDS: ISOVUE-300 61% 100ML VIAL As Ordered ONE (11:25)
[2024-02-21] MEDS: ONDANSETRON 4MG 2ML VIAL IV PRN (12:08)
[2024-02-21] MEDS: HYDROMORPHONE HCL 0.5 MG/ 0.5 ML SYRINGE IV PRN (12:12)
[2024-02-21] MEDS: oxyCODONE 5MG TAB PO PRN (12:29)
[2024-02-21 14:00] VITALS: BP 132/70; TEMP 97.8; O2SAT 98
== END 2024-02-21 14:10 | disposition home or self-care (01) ==
LOC: M SDC 07:48
PROVIDERS: ATTEND Urology
DX: N20.0 Calculus of kidney (principal); I10 Essential (primary) hypertension; D64.9 Anemia, unspecified; G62.9 Polyneuropathy, unspecified; G47.33 Obstructive sleep apnea (adult) (pediatric); F41.9 Anxiety disorder, unspecified; F32.A Depression, unspecified; G43.909 Migraine, unspecified, not intractable, without status migrainosus; Z88.1 Allergy status to other antibiotic agents; Z88.5 Allergy status to narcotic agent; Z88.0 Allergy status to penicillin; Z79.899 Other long term (current) drug therapy; Z79.01 Long term (current) use of anticoagulants; Z95.0 Presence of cardiac pacemaker; F43.10 Post-traumatic stress disorder, unspecified; Z86.711 Personal history of pulmonary embolism; Z88.2 Allergy status to sulfonamides
CPT/HCPCS: 52356; 76000; 82365; C1769; C1894; C2617; J0131; J0461; J0690; J1100; J1171; J1200; J1596; J2405; J2598; J3010; Q9967

== ENCOUNTER 2024-02-23 14:50 | Emergency (ER) | payer MEDICARE, MEDICAID ==
[~2024-02-23] VITALS: Ht 162.6 cm; Wt 154.1 kg
[2024-02-23 17:49] LABS: BASO % 0.4 % (0.0-1.0); EOS % 0.6 % (0.0-3.0); HEMATOCRIT 38.9 % (36.0-47.0); HEMOGLOBIN 12.1 g/dl (12.0-15.5); LYMPH # 1.4 10^3/uL (1.5-5.0); LYMPH % 26.6 % (24.0-44.0); MEAN CORPUSCULAR HGB CONC 31.1 g/dl (32.0-36.5); MONO # 0.7 10^3/uL (0.0-0.8); MONO % 13.1 % (2.0-8.0); NEUTROPHILS # 3.2 10^3/uL (1.5-8.5); NEUTROPHILS % 58.9 % (36.0-66.0); PLATELET COUNT, AUTOMATED 121 10^3/uL (150-450); RED BLOOD COUNT 4.32 10^6/uL (4.00-5.40); WHITE BLOOD COUNT 5.4 10^3/uL (4.0-10.0)
[2024-02-23 18:03] LABS: INR 1.17; PROTHROMBIN TIME 14.6 SECONDS (12.5-14.5)
[2024-02-23 18:14] LABS: LIPASE 20 U/L (12-53)
[2024-02-23 18:20] LABS: ALBUMIN 3.2 G/DL (3.2-5.2); ALKALINE PHOSPHATASE 122 U/L (46-116); ALT/SGPT 16 U/L (7.0-40); AST/SGOT 15 U/L (<34); BILIRUBIN,DIRECT 0.2 MG/DL (<0.4); BILIRUBIN,TOTAL 0.3 MG/DL (0.3-1.2); BLOOD UREA NITROGEN 18 MG/DL (9-23); CALCIUM LEVEL 9.1 MG/DL (8.3-10.6); CARBON DIOXIDE LEVEL 28 MMOL/L (20-31); CHLORIDE LEVEL 110 MMOL/L (98-107); CREATININE FOR GFR 0.87 MG/DL (0.55-1.30); GLOMERULAR FILTRATION RATE > 60.0 (>45); GLUCOSE, FASTING 88 MG/DL (74-106); POTASSIUM SERUM 4.1 MMOL/L (3.5-5.1); SODIUM LEVEL 142 MMOL/L (136-145); TOTAL PROTEIN 6.8 G/DL (5.7-8.2)
[2024-02-23] MEDS: KETOROLAC 30 MG/ML 1ML VIAL IV ONE (18:20)
[2024-02-23] MEDS: ONDANSETRON 4MG 2ML VIAL IV ONE (18:20)
[2024-02-23] MEDS: HYDROMORPHONE HCL 0.5 MG/ 0.5 ML SYRINGE IV ONE (18:21)
[2024-02-23 19:20] VITALS: BP 150/78; TEMP 97.4; O2SAT 95
== END 2024-02-23 19:47 | disposition home or self-care (01) ==
LOC: M ED 14:50
DX: R10.9 Unspecified abdominal pain (principal); Z98.84 Bariatric surgery status; Z96.0 Presence of urogenital implants
CPT/HCPCS: 74176; 80048; 80076; 81001; 83690; 85025; 85610; 87086; 96374; 96375; 99284; J1171; J1885; J2405

== ENCOUNTER 2024-02-25 11:25 | Emergency (ER) | payer MEDICARE, MEDICAID ==
[~2024-02-25] VITALS: Ht 162.6 cm; Wt 154.1 kg
[2024-02-25 12:03] LABS: BASO % 0.5 % (0.0-1.0); EOS # 0.1 10^3/uL (0.0-0.5); EOS % 1.9 % (0.0-3.0); HEMATOCRIT 40.2 % (36.0-47.0); HEMOGLOBIN 12.3 g/dl (12.0-15.5); LYMPH # 1.4 10^3/uL (1.5-5.0); LYMPH % 24.2 % (24.0-44.0); MEAN CORPUSCULAR HEMOGLOBIN 27.6 pg (27.0-33.0); MEAN CORPUSCULAR HGB CONC 30.6 g/dl (32.0-36.5); MEAN CORPUSCULAR VOLUME 90.3 fl (80.0-96.0); MONO # 0.7 10^3/uL (0.0-0.8); MONO % 13.1 % (2.0-8.0); NEUTROPHILS # 3.4 10^3/uL (1.5-8.5); NEUTROPHILS % 59.9 % (36.0-66.0); PLATELET COUNT, AUTOMATED 148 10^3/uL (150-450); RED BLOOD COUNT 4.45 10^6/uL (4.00-5.40); WHITE BLOOD COUNT 5.7 10^3/uL (4.0-10.0)
[2024-02-25 12:30] LABS: ALBUMIN 3.3 G/DL (3.2-5.2); BILIRUBIN,DIRECT 0.2 MG/DL (<0.4); BILIRUBIN,TOTAL 0.4 MG/DL (0.3-1.2); TOTAL PROTEIN 7.1 G/DL (5.7-8.2)
[2024-02-25] MEDS: ACETAMINOPHEN 500 MG TAB PO ONE (13:34)
[2024-02-25] MEDS: KETOROLAC 30 MG/ML 1ML VIAL IV ONE (13:34)
[2024-02-25 13:41] LABS: POTASSIUM SERUM 5.4 MMOL/L (3.5-5.1)
[2024-02-25 14:33] VITALS: BP 128/78; TEMP 98.8; O2SAT 96
[2024-02-25] MEDS ORDERED: MELO7.5T35 PO (15:43)
== END 2024-02-25 15:57 | disposition home or self-care (01) ==
LOC: M ED 11:25
DX: N20.0 Calculus of kidney (principal); Z98.890 Other specified postprocedural states; M54.16 Radiculopathy, lumbar region; Z79.01 Long term (current) use of anticoagulants; Z79.899 Other long term (current) drug therapy; Z88.0 Allergy status to penicillin; Z88.1 Allergy status to other antibiotic agents; Z88.2 Allergy status to sulfonamides; Z88.5 Allergy status to narcotic agent; Z88.8 Allergy status to other drugs, medicaments and biological substances
CPT/HCPCS: 80047; 80076; 81001; 83690; 84132; 85025; 87086; 96374; 99284; J1885

== ENCOUNTER 2024-02-29 10:46 | Inpatient (IN) | payer MEDICARE, MEDICAID ==
[~2024-02-29] VITALS: Ht 162.6 cm; Wt 140.4 kg
[~2024-02-29 10:46] MED LIST changes: +MELO7.5T35 PO
[2024-02-29] MEDS: NS 1,000 ML IV SCH ×2 (11:56→15:33)
[2024-02-29 12:10] LABS: BASO % 0.4 % (0.0-1.0); EOS # 0.1 10^3/uL (0.0-0.5); EOS % 2.4 % (0.0-3.0); HEMOGLOBIN 11.1 g/dl (12.0-15.5); LYMPH # 1.4 10^3/uL (1.5-5.0); MEAN CORPUSCULAR HEMOGLOBIN 27.2 pg (27.0-33.0); MEAN CORPUSCULAR VOLUME 90.7 fl (80.0-96.0); MONO # 0.7 10^3/uL (0.0-0.8); MONO % 13.6 % (2.0-8.0); NEUTROPHILS # 3.2 10^3/uL (1.5-8.5); NEUTROPHILS % 58.2 % (36.0-66.0); PLATELET COUNT, AUTOMATED 141 10^3/uL (150-450); RED BLOOD COUNT 4.08 10^6/uL (4.00-5.40); WHITE BLOOD COUNT 5.4 10^3/uL (4.0-10.0)
[2024-02-29 12:21] LABS: INR 1.36; PARTIAL THROMBOPLASTIN TIME 32.9 SECONDS (24.8-34.2); PROTHROMBIN TIME 16.3 SECONDS (12.5-14.5)
[2024-02-29 12:26] LABS: LIPASE 21 U/L (12-53)
[2024-02-29 12:27] LABS: VALPROIC ACID (DEPAKOTE) 54.4 UG/ML (50.0-100.0)
[2024-02-29] MEDS: ONDANSETRON 4MG 2ML VIAL IV ONE (12:27)
[2024-02-29 12:28] LABS: ALKALINE PHOSPHATASE 113 U/L (46-116); ALT/SGPT 16 U/L (7.0-40); AST/SGOT 11 U/L (<34); BILIRUBIN,DIRECT 0.1 MG/DL (<0.4); BILIRUBIN,TOTAL 0.3 MG/DL (0.3-1.2); BLOOD UREA NITROGEN 15 MG/DL (9-23); CALCIUM LEVEL 9.2 MG/DL (8.3-10.6); CARBON DIOXIDE LEVEL 30 MMOL/L (20-31); CHLORIDE LEVEL 109 MMOL/L (98-107); CREATININE FOR GFR 0.76 MG/DL (0.55-1.30); GLOMERULAR FILTRATION RATE > 60.0 (>45); GLUCOSE, FASTING 95 MG/DL (74-106); POTASSIUM SERUM 4.8 MMOL/L (3.5-5.1); SODIUM LEVEL 141 MMOL/L (136-145); TOTAL PROTEIN 6.6 G/DL (5.7-8.2)
[2024-02-29] MEDS: HYDROMORPHONE HCL 0.5 MG/ 0.5 ML SYRINGE IV ONE (12:28)
[2024-02-29] MEDS ORDERED: ISOVUE-370 76% 100ML VIAL As Ordered ONE (12:39)
[2024-02-29] MEDS: CIPROFLOXACIN 400 MG in IV 1 EA IV ONE (14:00)
[2024-02-29] MEDS ORDERED: METO10TA2 PO (14:38)
[2024-02-29] MEDS ORDERED: ONDA-282 PO (14:38)
[2024-02-29] MEDS ORDERED: MULTTAB61 PO (14:38)
[2024-02-29] MEDS ORDERED: VENL75CA47 PO (14:38)
[2024-02-29] MEDS ORDERED: LYRI150C PO (14:38)
[2024-02-29] MEDS ORDERED: MELO7.5T35 PO (14:38)
[2024-02-29] MEDS ORDERED: HOME MED LIST COMPLETE! XX SCH (14:40)
[2024-02-29] MEDS ORDERED: MOM 30ML SUSPENSION UDC PO PRN (15:05)
[2024-02-29] MEDS ORDERED: HYDROMORPHONE HCL 0.5 MG/ 0.5 ML SYRINGE IV PRN (15:05)
[2024-02-29] MEDS ORDERED: MAALOX 30 ML SUSP *UDC PO PRN (15:05)
[2024-02-29] MEDS: HYDROMORPHONE HCL 0.5 MG/ 0.5 ML SYRINGE IV PRN (15:33)
[2024-02-29 15:52] LABS: PROCALCITONIN 0.08 ng/ml
[2024-02-29] MEDS: TAMSULOSIN 0.4 MG CAP PO SCH (16:09)
[2024-02-29] MEDS: oxyBUTYnin *DITROPAN XL* 5 MG TABCR PO SCH (16:09)
[2024-02-29] MEDS: VENLAFAXINE **XR** 75MG CAPSULE PO SCH (16:09)
[2024-02-29] MEDS: ONDANSETRON 4MG 2ML VIAL IV PRN (18:35)
[2024-02-29] MEDS: MAGNESIUM OXIDE 400MG TAB (MAG-OX) PO SCH (21:07)
[2024-02-29] MEDS: PREGABALIN 75 MG CAP(LYRICA) PO SCH (21:07)
[2024-02-29] MEDS: DOCUSATE SODIUM 100MG CAPSULE PO SCH (21:07)
[2024-02-29] MEDS: DOXYCYCLINE HYCLATE 100MG TABLET PO SCH (21:07)
[2024-02-29] MEDS: APIXABAN 5 MG TAB (ELIQUIS) PO SCH (21:08)
[2024-02-29] MEDS: DIVALPROEX 500 MG TAB PO SCH (21:08)
[2024-02-29] MEDS: rOPINIRole 1MG TAB PO SCH (21:23)
[2024-03-01] MEDS: CIPROFLOXACIN 400 MG in IV 1 EA IV SCH (02:06)
[2024-03-01 06:13] LABS: BASO % 0.2 % (0.0-1.0); EOS # 0.2 10^3/uL (0.0-0.5); EOS % 2.9 % (0.0-3.0); HEMATOCRIT 33.2 % (36.0-47.0); HEMOGLOBIN 10.2 g/dl (12.0-15.5); LYMPH # 1.2 10^3/uL (1.5-5.0); LYMPH % 23.9 % (24.0-44.0); MEAN CORPUSCULAR HEMOGLOBIN 27.5 pg (27.0-33.0); MEAN CORPUSCULAR HGB CONC 30.7 g/dl (32.0-36.5); MEAN CORPUSCULAR VOLUME 89.5 fl (80.0-96.0); MONO # 0.7 10^3/uL (0.0-0.8); MONO % 14.1 % (2.0-8.0); NEUTROPHILS % 58.5 % (36.0-66.0); PLATELET COUNT, AUTOMATED 133 10^3/uL (150-450); RED BLOOD COUNT 3.71 10^6/uL (4.00-5.40); WHITE BLOOD COUNT 5.2 10^3/uL (4.0-10.0)
[2024-03-01 06:43] LABS: BLOOD UREA NITROGEN 11 MG/DL (9-23); CALCIUM LEVEL 8.8 MG/DL (8.3-10.6); CARBON DIOXIDE LEVEL 29 MMOL/L (20-31); CHLORIDE LEVEL 110 MMOL/L (98-107); CREATININE FOR GFR 0.72 MG/DL (0.55-1.30); GLOMERULAR FILTRATION RATE > 60.0 (>45); GLUCOSE, FASTING 100 MG/DL (74-106); MAGNESIUM LEVEL 1.8 MG/DL (1.8-2.4); POTASSIUM SERUM 4.3 MMOL/L (3.5-5.1); SODIUM LEVEL 141 MMOL/L (136-145)
[2024-03-01 07:38] VITALS: BP 122/62; TEMP 97.1; O2SAT 98
[2024-03-01] MEDS: MULTIVITAMINS/MINERALS THERAP 1 TAB PO SCH (08:24)
[2024-03-01] MEDS: CALCIUM/VITAMIN D 500 MG TAB PO SCH (08:24)
[2024-03-01] MEDS: CYANOCOBALAMIN 500 MCG TAB PO SCH (08:25)
[2024-03-01] MEDS: METOCLOPRAMIDE INJ 10MG/2ML VIAL IV PRN (12:09)
[2024-03-01 12:55] VITALS: BP 91/63; TEMP 97; O2SAT 96
[2024-03-01] MEDS: HYDROmorphone HCL 2MG/ML 1ML VIAL IV PRN (13:25)
[2024-03-01] MEDS: HYDROMORPHONE HCL 0.5 MG/ 0.5 ML SYRINGE IV PRN (18:57)
[2024-03-01 20:44] VITALS: BP_SYST 86; BP_SYST 90; BP_DIAS 56; BP_DIAS 62; TEMP 98.5; O2SAT 96
[2024-03-01] MEDS: ACETAMINOPHEN 325 MG TAB PO PRN (21:36)
[2024-03-01] MEDS: NYSTATIN 100,000 UNITS/GM TOPICAL PWD 15GM TOP PRN (22:08)
[2024-03-01] MEDS: NS 500 ML IV ONE (22:08)
[2024-03-01 22:45] VITALS: BP 97/63
[2024-03-01 22:46] VITALS: BP 112/72
[2024-03-02] VITALS: BP 118/78; TEMP 98.8; O2SAT 93
[2024-03-02 04:00] VITALS: BP 110/80; TEMP 97.7; O2SAT 95
[2024-03-02 05:51] LABS: BASO % 0.4 % (0.0-1.0); EOS # 0.2 10^3/uL (0.0-0.5); EOS % 3.7 % (0.0-3.0); HEMATOCRIT 33.1 % (36.0-47.0); LYMPH # 1.3 10^3/uL (1.5-5.0); LYMPH % 28.2 % (24.0-44.0); MEAN CORPUSCULAR HEMOGLOBIN 27.2 pg (27.0-33.0); MEAN CORPUSCULAR HGB CONC 30.2 g/dl (32.0-36.5); MEAN CORPUSCULAR VOLUME 89.9 fl (80.0-96.0); MONO # 0.8 10^3/uL (0.0-0.8); MONO % 16.6 % (2.0-8.0); NEUTROPHILS # 2.4 10^3/uL (1.5-8.5); NEUTROPHILS % 50.9 % (36.0-66.0); PLATELET COUNT, AUTOMATED 145 10^3/uL (150-450); RED BLOOD COUNT 3.68 10^6/uL (4.00-5.40); WHITE BLOOD COUNT 4.7 10^3/uL (4.0-10.0)
[2024-03-02 05:53] LABS: BLOOD UREA NITROGEN 9 MG/DL (9-23); CARBON DIOXIDE LEVEL 32 MMOL/L (20-31); CHLORIDE LEVEL 110 MMOL/L (98-107); CREATININE FOR GFR 0.87 MG/DL (0.55-1.30); GLOMERULAR FILTRATION RATE > 60.0 (>45); GLUCOSE, FASTING 89 MG/DL (74-106); MAGNESIUM LEVEL 1.9 MG/DL (1.8-2.4); POTASSIUM SERUM 4.5 MMOL/L (3.5-5.1); SODIUM LEVEL 141 MMOL/L (136-145)
[2024-03-02 08:00] VITALS: BP 126/102; TEMP 97.3; O2SAT 91
[2024-03-02] MEDS ORDERED: DILA4TAB13 PO (09:05)
[2024-03-02] MEDS ORDERED: METO10TA2 PO (09:05)
[2024-03-02] MEDS ORDERED: CIPR-249 PO (09:05)
== END 2024-03-02 11:18 | disposition home health service (06) | DRG 392 ==
LOC: M ED 10:46 → M ED INP 15:01 → M MSPAV 03-01 12:56
PROVIDERS: ADMIT Internal Medicine; ATTEND Internal Medicine
DX: R11.2 Nausea with vomiting, unspecified (principal); N39.0 Urinary tract infection, site not specified; I48.91 Unspecified atrial fibrillation; I10 Essential (primary) hypertension; D64.9 Anemia, unspecified; N32.81 Overactive bladder; R31.9 Hematuria, unspecified; G62.9 Polyneuropathy, unspecified; M54.9 Dorsalgia, unspecified; G89.29 Other chronic pain; Z90.49 Acquired absence of other specified parts of digestive tract; Z90.79 Acquired absence of other genital organ(s); Z96.611 Presence of right artificial shoulder joint; Z95.2 Presence of prosthetic heart valve; Z79.01 Long term (current) use of anticoagulants; Z79.2 Long term (current) use of antibiotics; Z79.899 Other long term (current) drug therapy; Z88.1 Allergy status to other antibiotic agents; Z88.0 Allergy status to penicillin; Z88.2 Allergy status to sulfonamides; Z86.711 Personal history of pulmonary embolism; Z62.810 Personal history of physical and sexual abuse in childhood; Z88.5 Allergy status to narcotic agent; Z88.8 Allergy status to other drugs, medicaments and biological substances; Z98.84 Bariatric surgery status; Z91.048 Other nonmedicinal substance allergy status; Z96.653 Presence of artificial knee joint, bilateral

== ENCOUNTER → 2024-03-12 | Outpatient (CLI) | payer MEDICARE, MEDICAID ==
[~2024-03-12] MED LIST changes: +LYRI150C PO; +METO10TA2 PO; +MULTTAB61 PO; +VENL75CA47 PO
== END ==
LOC: M ADAMS 14:58
PROVIDERS: ATTEND Family Medicine
DX: I51.7 Cardiomegaly (principal); I27.20 Pulmonary hypertension, unspecified; R63.4 Abnormal weight loss; R11.10 Vomiting, unspecified; R06.02 Shortness of breath

== ENCOUNTER → 2024-03-12 | Outpatient (REF) | payer MEDICARE, MEDICAID ==
[~2024-03-12] MED LIST changes: +NYST1POW3; +NYST1POW3 TOP; -NYST1POW9; -NYST1POW9 TOP
[2024-03-12 18:36] LABS: BASO % 0.3 % (0.0-1.0); EOS % 0.6 % (0.0-3.0); HEMATOCRIT 41.3 % (36.0-47.0); HEMOGLOBIN 12.2 g/dl (12.0-15.5); LYMPH # 1.3 10^3/uL (1.5-5.0); LYMPH % 19.3 % (24.0-44.0); MEAN CORPUSCULAR HEMOGLOBIN 26.2 pg (27.0-33.0); MEAN CORPUSCULAR HGB CONC 29.5 g/dl (32.0-36.5); MEAN CORPUSCULAR VOLUME 88.6 fl (80.0-96.0); MONO # 0.7 10^3/uL (0.0-0.8); MONO % 10.2 % (2.0-8.0); NEUTROPHILS # 4.6 10^3/uL (1.5-8.5); NEUTROPHILS % 69.1 % (36.0-66.0); PLATELET COUNT, AUTOMATED 239 10^3/uL (150-450); RED BLOOD COUNT 4.66 10^6/uL (4.00-5.40); WHITE BLOOD COUNT 6.6 10^3/uL (4.0-10.0)
[2024-03-12 19:07] LABS: ALBUMIN 3.1 G/DL (3.2-5.2); ALKALINE PHOSPHATASE 109 U/L (35-104); ALT/SGPT 10 U/L (7.0-40); AST/SGOT 8 U/L (<34); BILIRUBIN,TOTAL 0.3 MG/DL (0.3-1.2); BLOOD UREA NITROGEN 15 MG/DL (9-23); CALCIUM LEVEL 9.6 MG/DL (8.3-10.6); CARBON DIOXIDE LEVEL 31 MMOL/L (20-31); CHLORIDE LEVEL 108 MMOL/L (98-107); CREATININE FOR GFR 0.85 MG/DL (0.55-1.30); GLOMERULAR FILTRATION RATE > 60.0 (>45); GLUCOSE, FASTING 59 MG/DL (74-106); SODIUM LEVEL 144 MMOL/L (136-145); TOTAL PROTEIN 7.4 G/DL (5.7-8.2)
== END ==
LOC: M SFHCADAM 14:49
PROVIDERS: ATTEND Family Medicine
DX: R63.4 Abnormal weight loss (principal); R11.10 Vomiting, unspecified; R06.02 Shortness of breath; Z98.890 Other specified postprocedural states

== ENCOUNTER → 2024-03-12 | Outpatient (REF) | payer MEDICARE, MEDICAID ==
[2024-03-12 18:36] LABS: BASO % 0.3 % (0.0-1.0); EOS # 0.1 10^3/uL (0.0-0.5); EOS % 0.8 % (0.0-3.0); HEMATOCRIT 40.8 % (36.0-47.0); HEMOGLOBIN 12.3 g/dl (12.0-15.5); LYMPH # 1.3 10^3/uL (1.5-5.0); LYMPH % 19.5 % (24.0-44.0); MEAN CORPUSCULAR HEMOGLOBIN 26.8 pg (27.0-33.0); MEAN CORPUSCULAR HGB CONC 30.1 g/dl (32.0-36.5); MEAN CORPUSCULAR VOLUME 88.9 fl (80.0-96.0); MONO # 0.7 10^3/uL (0.0-0.8); MONO % 10.3 % (2.0-8.0); NEUTROPHILS # 4.5 10^3/uL (1.5-8.5); NEUTROPHILS % 68.5 % (36.0-66.0); PLATELET COUNT, AUTOMATED 237 10^3/uL (150-450); RED BLOOD COUNT 4.59 10^6/uL (4.00-5.40); WHITE BLOOD COUNT 6.5 10^3/uL (4.0-10.0)
[2024-03-12 19:02] LABS: ERYTHROCYTE SEDIMENTATION RATE 80 mm/hr (0-30)
[2024-03-12 19:08] LABS: ALBUMIN 3.1 G/DL (3.2-5.2); ALKALINE PHOSPHATASE 101 U/L (35-104); ALT/SGPT 10 U/L (7.0-40); AST/SGOT 9 U/L (<34); BILIRUBIN,TOTAL 0.3 MG/DL (0.3-1.2); BLOOD UREA NITROGEN 15 MG/DL (9-23); CALCIUM LEVEL 9.6 MG/DL (8.3-10.6); CARBON DIOXIDE LEVEL 30 MMOL/L (20-31); CHLORIDE LEVEL 108 MMOL/L (98-107); CREATININE FOR GFR 0.84 MG/DL (0.55-1.30); GLOMERULAR FILTRATION RATE > 60.0 (>45); GLUCOSE, FASTING 64 MG/DL (74-106); POTASSIUM SERUM 4.2 MMOL/L (3.5-5.1); SODIUM LEVEL 143 MMOL/L (136-145); TOTAL PROTEIN 7.1 G/DL (5.7-8.2)
== END ==
LOC: M LABDRWAD 17:33
PROVIDERS: ATTEND Internal Medicine Infectious Disease
DX: A49.02 Methicillin resistant Staphylococcus aureus infection, unspecified site (principal); R63.4 Abnormal weight loss; R11.10 Vomiting, unspecified; R06.02 Shortness of breath; Z98.890 Other specified postprocedural states

== ENCOUNTER → 2024-03-19 | Outpatient (CLI) | payer MEDICARE, MEDICAID | LOC: M PAIN 11:00 | PROVIDERS: ATTEND Nurse Practitioner Family | DX: M48.062 Spinal stenosis, lumbar region with neurogenic claudication (principal); Z79.891 Long term (current) use of opiate analgesic; G89.29 Other chronic pain; E66.01 Morbid (severe) obesity due to excess calories; F32.A Depression, unspecified; F41.9 Anxiety disorder, unspecified; D63.8 Anemia in other chronic diseases classified elsewhere; M65.4 Radial styloid tenosynovitis [de Quervain]; I10 Essential (primary) hypertension; I48.91 Unspecified atrial fibrillation; Z96.611 Presence of right artificial shoulder joint; Z86.711 Personal history of pulmonary embolism; N32.81 Overactive bladder; Z86.14 Personal history of Methicillin resistant Staphylococcus aureus infection; Z68.43 Body mass index [BMI] 50.0-59.9, adult; Z79.01 Long term (current) use of anticoagulants; Z79.899 Other long term (current) drug therapy; Z88.0 Allergy status to penicillin; Z88.1 Allergy status to other antibiotic agents; Z88.2 Allergy status to sulfonamides; Z88.5 Allergy status to narcotic agent; Z88.6 Allergy status to analgesic agent; Z88.8 Allergy status to other drugs, medicaments and biological substances ==

== ENCOUNTER 2024-04-30 20:56 | Emergency (ER) | payer MEDICARE, MEDICAID ==
[~2024-04-30] VITALS: Ht 162.6 cm; Wt 145.2 kg
[2024-04-30] MEDS ORDERED: PERC10TA26 PO (21:08)
[2024-05-01] MEDS ORDERED: PERCOCET 5MG/325MG TAB PO ONE (07:55)
[2024-05-01] MEDS: ACETAMINOPHEN *IV* 1,000 MG in IV 1 EA IV ONE (09:19)
[2024-05-01 09:27] LABS: BASO % 0.6 % (0.0-1.0); EOS # 0.1 10^3/uL (0.0-0.5); EOS % 1.6 % (0.0-3.0); HEMATOCRIT 38.2 % (36.0-47.0); HEMOGLOBIN 11.7 g/dl (12.0-15.5); LYMPH # 1.6 10^3/uL (1.5-5.0); LYMPH % 31.8 % (24.0-44.0); MEAN CORPUSCULAR HEMOGLOBIN 26.5 pg (27.0-33.0); MEAN CORPUSCULAR HGB CONC 30.6 g/dl (32.0-36.5); MEAN CORPUSCULAR VOLUME 86.4 fl (80.0-96.0); MONO # 0.6 10^3/uL (0.0-0.8); MONO % 12.5 % (2.0-8.0); NEUTROPHILS # 2.6 10^3/uL (1.5-8.5); NEUTROPHILS % 52.9 % (36.0-66.0); PLATELET COUNT, AUTOMATED 166 10^3/uL (150-450); RED BLOOD COUNT 4.42 10^6/uL (4.00-5.40); WHITE BLOOD COUNT 4.9 10^3/uL (4.0-10.0)
[2024-05-01 09:55] LABS: CALCIUM LEVEL 9.4 MG/DL (8.3-10.6); CREATININE FOR GFR 1.02 MG/DL (0.55-1.30); GLOMERULAR FILTRATION RATE 57.4 (>45); POTASSIUM SERUM 4.8 MMOL/L (3.5-5.1)
[2024-05-01] MEDS: HYDROMORPHONE HCL 0.5 MG/ 0.5 ML SYRINGE IV ONE ×3 (11:16→19:58)
[2024-05-01] MEDS: TAMSULOSIN 0.4 MG CAP PO ONE (11:23)
[2024-05-01] MEDS: CIPROFLOXACIN 200 MG in IV 1 EA IV ONE (18:20)
[2024-05-02] MEDS: HYDROMORPHONE HCL 0.5 MG/ 0.5 ML SYRINGE IV PRN (04:00)
[2024-05-02 07:15] VITALS: TEMP 97; O2SAT 97
[2024-05-02 07:36] VITALS: BP 108/58
== END 2024-05-02 07:41 | disposition short-term general hospital (02) ==
LOC: M ED 20:56
DX: N13.30 Unspecified hydronephrosis (principal); M51.26 Other intervertebral disc displacement, lumbar region; N20.2 Calculus of kidney with calculus of ureter; I25.10 Atherosclerotic heart disease of native coronary artery without angina pectoris; I10 Essential (primary) hypertension; Z87.442 Personal history of urinary calculi; G43.909 Migraine, unspecified, not intractable, without status migrainosus; Z98.84 Bariatric surgery status; Z95.1 Presence of aortocoronary bypass graft; Z95.4 Presence of other heart-valve replacement; Z79.01 Long term (current) use of anticoagulants; Z79.899 Other long term (current) drug therapy; Z88.0 Allergy status to penicillin; Z88.2 Allergy status to sulfonamides; Z88.5 Allergy status to narcotic agent; Z88.1 Allergy status to other antibiotic agents; Z88.8 Allergy status to other drugs, medicaments and biological substances; Z91.89 Other specified personal risk factors, not elsewhere classified
CPT/HCPCS: 72148; 74176; 80048; 81001; 85025; 87086; 96365; 96366; 96375; 96376; 99285; J0131; J0744; J1171

== ENCOUNTER 2024-05-09 18:22 | Inpatient (IN) | payer MEDICARE, MEDICAID ==
[~2024-05-09] VITALS: Ht 162.6 cm; Wt 140.9 kg
[~2024-05-09 18:22] MED LIST changes: +PERC10TA26 PO
[2024-05-09 19:34] LABS: BASO % 0.3 % (0.0-1.0); EOS # 0.1 10^3/uL (0.0-0.5); EOS % 1.1 % (0.0-3.0); HEMATOCRIT 38.9 % (36.0-47.0); LYMPH # 1.6 10^3/uL (1.5-5.0); LYMPH % 24.6 % (24.0-44.0); MEAN CORPUSCULAR HGB CONC 30.8 g/dl (32.0-36.5); MEAN CORPUSCULAR VOLUME 87.4 fl (80.0-96.0); MONO # 0.6 10^3/uL (0.0-0.8); MONO % 9.8 % (2.0-8.0); NEUTROPHILS # 4.2 10^3/uL (1.5-8.5); NEUTROPHILS % 63.9 % (36.0-66.0); PLATELET COUNT, AUTOMATED 136 10^3/uL (150-450); RED BLOOD COUNT 4.45 10^6/uL (4.00-5.40); WHITE BLOOD COUNT 6.6 10^3/uL (4.0-10.0)
[2024-05-09 20:10] LABS: BLOOD UREA NITROGEN 28 MG/DL (9-23); CALCIUM LEVEL 8.9 MG/DL (8.3-10.6); CARBON DIOXIDE LEVEL 30 MMOL/L (20-31); CHLORIDE LEVEL 103 MMOL/L (98-107); GLOMERULAR FILTRATION RATE > 60.0 (>45); GLUCOSE, FASTING 93 MG/DL (74-106); POTASSIUM SERUM 4.6 MMOL/L (3.5-5.1); SODIUM LEVEL 139 MMOL/L (136-145)
[2024-05-09 20:12] LABS: FREE T4 1.06 NG/DL (0.89-1.76)
[2024-05-09 20:20] LABS: THYROID STIMULATING HORMONE 2.753 uIU/ML (0.55-4.78)
[2024-05-09] MEDS: HYDROMORPHONE HCL 0.5 MG/ 0.5 ML SYRINGE IV PRN (21:37)
[2024-05-09] MEDS ORDERED: CYCL5TAB4 PO (23:28)
[2024-05-09] MEDS ORDERED: VENL150C43 PO (23:28)
[2024-05-09] MEDS ORDERED: HYDR4TAB PO (23:28)
[2024-05-09] MEDS ORDERED: PREG200C2 PO (23:28)
[2024-05-09] MEDS ORDERED: HOME MED LIST COMPLETE! XX SCH (23:30)
[2024-05-10] MEDS ORDERED: KETOROLAC 30 MG/ML 1ML VIAL IV PRN (00:25)
[2024-05-10] MEDS ORDERED: METOCLOPRAMIDE 10MG TAB PO PRN (00:25)
[2024-05-10] MEDS ORDERED: NYSTATIN 100,000 UNITS/GM TOPICAL PWD 15GM TOP PRN (00:25)
[2024-05-10] MEDS ORDERED: ONDANSETRON 4MG ORAL DISINTEGRATING TAB PO PRN (00:25)
[2024-05-10] MEDS: rOPINIRole 1MG TAB PO SCH (02:02)
[2024-05-10] MEDS: MAGNESIUM OXIDE 400MG TAB (MAG-OX) PO SCH (02:03)
[2024-05-10] MEDS: DIVALPROEX 500 MG TAB PO SCH (02:03)
[2024-05-10 02:44] VITALS: BP 98/47; TEMP 96.8; O2SAT 96
[2024-05-10 04:00] VITALS: BP 94/56; TEMP 97.5; O2SAT 95
[2024-05-10 08:00] VITALS: BP 104/70; TEMP 97.3; O2SAT 96
[2024-05-10] MEDS: diphenhydrAMINE 50MG/ML VIAL IV PRN (08:05)
[2024-05-10] MEDS: MORPHINE 10 MG/ML 1ML VIAL IV PRN (08:05)
[2024-05-10 08:46] LABS: BASO % 0.4 % (0.0-1.0); EOS # 0.1 10^3/uL (0.0-0.5); EOS % 1.9 % (0.0-3.0); HEMATOCRIT 35.2 % (36.0-47.0); LYMPH % 37.8 % (24.0-44.0); MEAN CORPUSCULAR HGB CONC 31.3 g/dl (32.0-36.5); MEAN CORPUSCULAR VOLUME 86.5 fl (80.0-96.0); MONO # 0.6 10^3/uL (0.0-0.8); MONO % 10.5 % (2.0-8.0); NEUTROPHILS # 2.6 10^3/uL (1.5-8.5); NEUTROPHILS % 49.2 % (36.0-66.0); PLATELET COUNT, AUTOMATED 127 10^3/uL (150-450); RED BLOOD COUNT 4.07 10^6/uL (4.00-5.40); WHITE BLOOD COUNT 5.3 10^3/uL (4.0-10.0)
[2024-05-10 08:52] LABS: BLOOD UREA NITROGEN 24 MG/DL (9-23); CALCIUM LEVEL 9.1 MG/DL (8.3-10.6); CARBON DIOXIDE LEVEL 31 MMOL/L (20-31); CHLORIDE LEVEL 104 MMOL/L (98-107); GLOMERULAR FILTRATION RATE > 60.0 (>45); GLUCOSE, FASTING 95 MG/DL (74-106); SODIUM LEVEL 141 MMOL/L (136-145)
[2024-05-10] MEDS: VENLAFAXINE **XR** 75MG CAPSULE PO SCH (11:33)
[2024-05-10] MEDS: oxyBUTYnin *DITROPAN XL* 5 MG TABCR PO SCH (11:33)
[2024-05-10] MEDS: PREGABALIN 100 MG CAP (LYRICA) PO SCH (11:33)
[2024-05-10] MEDS: APIXABAN 5 MG TAB (ELIQUIS) PO SCH (11:33)
[2024-05-10] MEDS: CALCIUM/VITAMIN D 500 MG TAB PO SCH (11:34)
[2024-05-10] MEDS: DOXYCYCLINE HYCLATE 100MG TABLET PO SCH (11:34)
[2024-05-10] MEDS ORDERED: HYDROmorphone 4MG TABLET PO PRN (11:55)
[2024-05-10 12:00] VITALS: BP 90/66; TEMP 97.3
[2024-05-10] MEDS: CYANOCOBALAMIN 500 MCG TAB PO SCH (14:06)
[2024-05-10] MEDS: MULTIVITAMINS/MINERALS THERAP 1 TAB PO SCH (14:06)
[2024-05-10] MEDS: LIDOCAINE 5% (LIDODERM) PATCH TD SCH (14:06)
[2024-05-10 20:00] VITALS: BP 97/70; TEMP 97.3; O2SAT 96
[2024-05-10] MEDS: ACETAMINOPHEN 325 MG TAB PO PRN (20:37)
[2024-05-10] MEDS: KETOROLAC 30 MG/ML 1ML VIAL IV ONE (22:55)
[2024-05-11] MEDS: NS 500 ML IV ONE (01:26)
[2024-05-11 02:35] VITALS: BP 96/65
[2024-05-11 04:00] VITALS: BP 101/66; TEMP 97.7; O2SAT 96
[2024-05-11 06:41] LABS: BASO % 0.4 % (0.0-1.0); EOS # 0.1 10^3/uL (0.0-0.5); EOS % 2.3 % (0.0-3.0); HEMOGLOBIN 10.9 g/dl (12.0-15.5); LYMPH % 40.3 % (24.0-44.0); MEAN CORPUSCULAR HEMOGLOBIN 27.2 pg (27.0-33.0); MEAN CORPUSCULAR HGB CONC 31.1 g/dl (32.0-36.5); MEAN CORPUSCULAR VOLUME 87.3 fl (80.0-96.0); MONO # 0.4 10^3/uL (0.0-0.8); MONO % 8.9 % (2.0-8.0); NEUTROPHILS # 2.3 10^3/uL (1.5-8.5); NEUTROPHILS % 47.7 % (36.0-66.0); PLATELET COUNT, AUTOMATED 122 10^3/uL (150-450); RED BLOOD COUNT 4.01 10^6/uL (4.00-5.40); WHITE BLOOD COUNT 4.8 10^3/uL (4.0-10.0)
[2024-05-11 07:09] LABS: BLOOD UREA NITROGEN 26 MG/DL (9-23); CALCIUM LEVEL 9.1 MG/DL (8.3-10.6); CARBON DIOXIDE LEVEL 31 MMOL/L (20-31); CHLORIDE LEVEL 106 MMOL/L (98-107); CREATININE FOR GFR 0.91 MG/DL (0.55-1.30); GLOMERULAR FILTRATION RATE > 60.0 (>45); GLUCOSE, FASTING 85 MG/DL (74-106); POTASSIUM SERUM 4.5 MMOL/L (3.5-5.1); SODIUM LEVEL 141 MMOL/L (136-145)
[2024-05-11 08:31] VITALS: BP 99/64; TEMP 97.7; O2SAT 95
[2024-05-11] MEDS: LIDOCAINE 5% (LIDODERM) PATCH TD SCH (08:50)
[2024-05-11] MEDS: predniSONE 20 MG TAB PO ONE (08:51)
[2024-05-11] MEDS: HYDROmorphone 4MG TABLET PO PRN (09:42)
[2024-05-11] MEDS ORDERED: ISOVUE-370 76% 100ML VIAL As Ordered ONE (09:49)
[2024-05-11 12:29] VITALS: BP 130/79; TEMP 97.7; O2SAT 96
[2024-05-11] MEDS ORDERED: HYDROmorphone 4MG TABLET PO PRN (12:54)
[2024-05-11] MEDS: CYCLOBENZAPRINE 5MG TABLET PO PRN (15:08)
[2024-05-11] MEDS: IBUPROFEN 400MG TAB PO ONE (15:48)
[2024-05-11 19:36] VITALS: BP 103/61; TEMP 97.9; O2SAT 95
[2024-05-12 04:06] VITALS: BP 119/73; TEMP 97.7; O2SAT 96
[2024-05-12 06:24] LABS: BASO % 0.2 % (0.0-1.0); EOS % 0.2 % (0.0-3.0); HEMATOCRIT 33.9 % (36.0-47.0); HEMOGLOBIN 10.5 g/dl (12.0-15.5); LYMPH # 1.9 10^3/uL (1.5-5.0); LYMPH % 33.6 % (24.0-44.0); MEAN CORPUSCULAR HEMOGLOBIN 27.1 pg (27.0-33.0); MEAN CORPUSCULAR VOLUME 87.4 fl (80.0-96.0); MONO # 0.4 10^3/uL (0.0-0.8); MONO % 7.5 % (2.0-8.0); NEUTROPHILS # 3.4 10^3/uL (1.5-8.5); NEUTROPHILS % 58.2 % (36.0-66.0); PLATELET COUNT, AUTOMATED 128 10^3/uL (150-450); RED BLOOD COUNT 3.88 10^6/uL (4.00-5.40); WHITE BLOOD COUNT 5.8 10^3/uL (4.0-10.0)
[2024-05-12 06:56] LABS: BLOOD UREA NITROGEN 26 MG/DL (9-23); CALCIUM LEVEL 8.8 MG/DL (8.3-10.6); CARBON DIOXIDE LEVEL 29 MMOL/L (20-31); CHLORIDE LEVEL 107 MMOL/L (98-107); CREATININE FOR GFR 0.78 MG/DL (0.55-1.30); GLOMERULAR FILTRATION RATE > 60.0 (>45); GLUCOSE, FASTING 104 MG/DL (74-106); POTASSIUM SERUM 4.3 MMOL/L (3.5-5.1); SODIUM LEVEL 142 MMOL/L (136-145)
[2024-05-12] MEDS: predniSONE 20 MG TAB PO ONE (09:30)
[2024-05-12] MEDS: HYDROmorphone 4MG TABLET PO PRN (09:46)
[2024-05-12 12:12] VITALS: BP 121/75; TEMP 97.7; O2SAT 96
[2024-05-12 19:30] VITALS: BP 117/63; TEMP 97.2; O2SAT 96
[2024-05-13 03:51] VITALS: BP 138/87; TEMP 97.7; O2SAT 96
[2024-05-13] MEDS ORDERED: PILL CUTTER 1 EACH XX ONE (04:05)
[2024-05-13 07:31] LABS: BASO % 0.2 % (0.0-1.0); EOS % 0.2 % (0.0-3.0); HEMATOCRIT 35.3 % (36.0-47.0); HEMOGLOBIN 10.9 g/dl (12.0-15.5); LYMPH # 2.3 10^3/uL (1.5-5.0); LYMPH % 37.2 % (24.0-44.0); MEAN CORPUSCULAR HEMOGLOBIN 26.9 pg (27.0-33.0); MEAN CORPUSCULAR HGB CONC 30.9 g/dl (32.0-36.5); MEAN CORPUSCULAR VOLUME 87.2 fl (80.0-96.0); MONO # 0.4 10^3/uL (0.0-0.8); MONO % 7.2 % (2.0-8.0); NEUTROPHILS # 3.4 10^3/uL (1.5-8.5); NEUTROPHILS % 54.9 % (36.0-66.0); PLATELET COUNT, AUTOMATED 141 10^3/uL (150-450); RED BLOOD COUNT 4.05 10^6/uL (4.00-5.40); WHITE BLOOD COUNT 6.1 10^3/uL (4.0-10.0)
[2024-05-13 07:50] LABS: BLOOD UREA NITROGEN 23 MG/DL (9-23); CALCIUM LEVEL 9.1 MG/DL (8.3-10.6); CARBON DIOXIDE LEVEL 29 MMOL/L (20-31); CHLORIDE LEVEL 106 MMOL/L (98-107); CREATININE FOR GFR 0.75 MG/DL (0.55-1.30); GLOMERULAR FILTRATION RATE > 60.0 (>45); GLUCOSE, FASTING 83 MG/DL (74-106); POTASSIUM SERUM 4.5 MMOL/L (3.5-5.1); SODIUM LEVEL 142 MMOL/L (136-145)
[2024-05-13] MEDS: predniSONE 10MG TAB PO SCH (10:17)
[2024-05-13 12:00] VITALS: BP 118/53; TEMP 97.5; O2SAT 95
[2024-05-13 13:30] LABS: APPEARANCE, URINE HAZY (CLEAR); BACTERIA, URINE AUTO NEGATIVE (NEGATIVE); BILIRUBIN, URINE AUTO NEGATIVE (NEGATIVE); BLOOD, URINE BLOOD 2+ (NEGATIVE); CALCIUM OXALATE CRYSTALS SMALL; COLOR, URINE YELLOW (YELLOW); GLUCOSE, URINE (UA) AUTO NEGATIVE (NEGATIVE); KETONE, URINE AUTO NEGATIVE (NEGATIVE); LEUKOCYTE ESTERASE, URINE AUTO TRACE (NEGATIVE); NITRITE, URINE AUTO NEGATIVE (NEGATIVE); PROTEIN, URINE AUTO 1+ mg/dL (NEGATIVE); RBC, URINE AUTO 23 /HPF (0-3); SPECIFIC GRAVITY URINE AUTO 1.018 (1.002-1.035); SQUAMOUS EPITHELIAL CELL UR AU 1 /HPF (0-6); UROBILINOGEN, URINE AUTO 0.2 mg/dL (0.0-2.0); WBC, URINE AUTO 51 /HPF (0-3)
[2024-05-13] MEDS: cefTRIAXone SOD 1 GM in DEXTROSE 5% (D5W) ADV/MINI-BAG 50 ML IV SCH (14:37)
[2024-05-13 19:40] VITALS: BP 118/79; TEMP 97.7; O2SAT 94
[2024-05-13] MEDS: RAMELTEON 8 MG TAB (ROZEREM) PO SCH (20:35)
[2024-05-14 04:27] VITALS: BP 152/97; TEMP 97; O2SAT 95
[2024-05-14 07:14] LABS: BASO % 0.6 % (0.0-1.0); EOS % 0.4 % (0.0-3.0); HEMATOCRIT 36.5 % (36.0-47.0); HEMOGLOBIN 11.2 g/dl (12.0-15.5); LYMPH # 1.9 10^3/uL (1.5-5.0); LYMPH % 36.5 % (24.0-44.0); MEAN CORPUSCULAR HGB CONC 30.7 g/dl (32.0-36.5); MONO # 0.5 10^3/uL (0.0-0.8); MONO % 8.8 % (2.0-8.0); NEUTROPHILS # 2.8 10^3/uL (1.5-8.5); NEUTROPHILS % 53.3 % (36.0-66.0); PLATELET COUNT, AUTOMATED 117 10^3/uL (150-450); RED BLOOD COUNT 4.15 10^6/uL (4.00-5.40); WHITE BLOOD COUNT 5.3 10^3/uL (4.0-10.0)
[2024-05-14 07:22] LABS: BLOOD UREA NITROGEN 22 MG/DL (9-23); CALCIUM LEVEL 9.2 MG/DL (8.3-10.6); CARBON DIOXIDE LEVEL 32 MMOL/L (20-31); CHLORIDE LEVEL 105 MMOL/L (98-107); CREATININE FOR GFR 0.75 MG/DL (0.55-1.30); GLOMERULAR FILTRATION RATE > 60.0 (>45); GLUCOSE, FASTING 88 MG/DL (74-106); POTASSIUM SERUM 4.6 MMOL/L (3.5-5.1); SODIUM LEVEL 142 MMOL/L (136-145)
[2024-05-14 19:33] VITALS: BP 126/66; TEMP 97.9; O2SAT 94
[2024-05-15 04:11] VITALS: BP 98/58; TEMP 97.5; O2SAT 97
[2024-05-15 06:39] LABS: BASO % 0.2 % (0.0-1.0); EOS % 0.6 % (0.0-3.0); HEMATOCRIT 36.9 % (36.0-47.0); HEMOGLOBIN 11.3 g/dl (12.0-15.5); LYMPH # 1.8 10^3/uL (1.5-5.0); MEAN CORPUSCULAR HEMOGLOBIN 26.7 pg (27.0-33.0); MEAN CORPUSCULAR HGB CONC 30.6 g/dl (32.0-36.5); MEAN CORPUSCULAR VOLUME 87.2 fl (80.0-96.0); MONO # 0.5 10^3/uL (0.0-0.8); MONO % 8.5 % (2.0-8.0); NEUTROPHILS % 56.1 % (36.0-66.0); PLATELET COUNT, AUTOMATED 122 10^3/uL (150-450); RED BLOOD COUNT 4.23 10^6/uL (4.00-5.40); WHITE BLOOD COUNT 5.4 10^3/uL (4.0-10.0)
[2024-05-15 06:54] LABS: BLOOD UREA NITROGEN 21 MG/DL (9-23); CARBON DIOXIDE LEVEL 31 MMOL/L (20-31); CHLORIDE LEVEL 104 MMOL/L (98-107); CREATININE FOR GFR 0.77 MG/DL (0.55-1.30); GLOMERULAR FILTRATION RATE > 60.0 (>45); GLUCOSE, FASTING 87 MG/DL (74-106); POTASSIUM SERUM 4.5 MMOL/L (3.5-5.1); SODIUM LEVEL 141 MMOL/L (136-145)
[2024-05-15] MEDS: KETOROLAC 30 MG/ML 1ML VIAL IV ONE (10:28)
[2024-05-15] MEDS: PANTOPRAZOLE 40MG TAB (PROTONIX) PO ONE (10:28)
[2024-05-15 11:19] VITALS: BP 96/60; TEMP 97.7; O2SAT 94
[2024-05-15 20:00] VITALS: BP 112/75; TEMP 97.9; O2SAT 97
[2024-05-15] MEDS: MELOXICAM (MOBIC) 7.5 MG TAB PO ONE (20:07)
[2024-05-16 04:00] VITALS: BP 91/60; TEMP 97.2; O2SAT 95
[2024-05-16 07:22] LABS: BASO % 0.7 % (0.0-1.0); EOS % 0.7 % (0.0-3.0); HEMATOCRIT 38.2 % (36.0-47.0); HEMOGLOBIN 11.6 g/dl (12.0-15.5); LYMPH # 2.1 10^3/uL (1.5-5.0); LYMPH % 36.8 % (24.0-44.0); MEAN CORPUSCULAR HEMOGLOBIN 26.9 pg (27.0-33.0); MEAN CORPUSCULAR HGB CONC 30.4 g/dl (32.0-36.5); MEAN CORPUSCULAR VOLUME 88.4 fl (80.0-96.0); MONO # 0.6 10^3/uL (0.0-0.8); MONO % 9.9 % (2.0-8.0); NEUTROPHILS % 51.4 % (36.0-66.0); PLATELET COUNT, AUTOMATED 142 10^3/uL (150-450); RED BLOOD COUNT 4.32 10^6/uL (4.00-5.40); WHITE BLOOD COUNT 5.7 10^3/uL (4.0-10.0)
[2024-05-16 08:00] LABS: BLOOD UREA NITROGEN 28 MG/DL (9-23); CALCIUM LEVEL 9.2 MG/DL (8.3-10.6); CARBON DIOXIDE LEVEL 32 MMOL/L (20-31); CHLORIDE LEVEL 103 MMOL/L (98-107); CREATININE FOR GFR 0.89 MG/DL (0.55-1.30); GLOMERULAR FILTRATION RATE > 60.0 (>45); GLUCOSE, FASTING 87 MG/DL (74-106); POTASSIUM SERUM 4.7 MMOL/L (3.5-5.1); SODIUM LEVEL 143 MMOL/L (136-145)
[2024-05-16] MEDS: MIRALAX *UNIT DOSE* 17GM PACKET PO PRN (16:35)
[2024-05-16 20:00] VITALS: BP 130/84; TEMP 97.7; O2SAT 96
[2024-05-17 04:41] VITALS: BP 131/83; TEMP 97.9; O2SAT 99
[2024-05-17 07:02] LABS: BASO % 0.3 % (0.0-1.0); EOS % 0.5 % (0.0-3.0); HEMATOCRIT 36.3 % (36.0-47.0); LYMPH # 1.9 10^3/uL (1.5-5.0); LYMPH % 26.2 % (24.0-44.0); MEAN CORPUSCULAR HGB CONC 30.3 g/dl (32.0-36.5); MONO # 0.6 10^3/uL (0.0-0.8); MONO % 8.4 % (2.0-8.0); NEUTROPHILS # 4.7 10^3/uL (1.5-8.5); NEUTROPHILS % 63.9 % (36.0-66.0); PLATELET COUNT, AUTOMATED 151 10^3/uL (150-450); RED BLOOD COUNT 4.08 10^6/uL (4.00-5.40); WHITE BLOOD COUNT 7.4 10^3/uL (4.0-10.0)
[2024-05-17 07:33] LABS: BLOOD UREA NITROGEN 25 MG/DL (9-23); CALCIUM LEVEL 8.9 MG/DL (8.3-10.6); CARBON DIOXIDE LEVEL 35 MMOL/L (20-31); CHLORIDE LEVEL 104 MMOL/L (98-107); CREATININE FOR GFR 0.81 MG/DL (0.55-1.30); GLOMERULAR FILTRATION RATE > 60.0 (>45); GLUCOSE, FASTING 84 MG/DL (74-106); POTASSIUM SERUM 4.9 MMOL/L (3.5-5.1); SODIUM LEVEL 142 MMOL/L (136-145)
[2024-05-17] MEDS ORDERED: PROT1TAB2 PO (15:23)
[2024-05-17] MEDS ORDERED: LIDO1PAD TOP (15:23)
[2024-05-17] MEDS ORDERED: MELO15TA28 PO (15:23)
[2024-05-17] MEDS ORDERED: PRED10TA2 PO (15:32)
== END 2024-05-17 16:17 | disposition home health service (06) | DRG 552 ==
LOC: EDBD 18:22 → M ED 18:22 → M ED INP 05-10 00:22 → M MS5PR 05-10 02:21
PROVIDERS: ADMIT Student in an Organized Health Care Education/Training Program; ATTEND Internal Medicine
DX: M54.32 Sciatica, left side (principal); Z68.43 Body mass index [BMI] 50.0-59.9, adult; N13.30 Unspecified hydronephrosis; N13.4 Hydroureter; T84.028D Dislocation of other internal joint prosthesis, subsequent encounter; I10 Essential (primary) hypertension; I48.91 Unspecified atrial fibrillation; Z96.611 Presence of right artificial shoulder joint; D64.9 Anemia, unspecified; N32.81 Overactive bladder; F32.A Depression, unspecified; F41.9 Anxiety disorder, unspecified; R07.89 Other chest pain; E66.01 Morbid (severe) obesity due to excess calories; G89.29 Other chronic pain; G62.9 Polyneuropathy, unspecified; M54.50 Low back pain, unspecified; Z96.653 Presence of artificial knee joint, bilateral; G25.81 Restless legs syndrome; Z79.01 Long term (current) use of anticoagulants; Z79.2 Long term (current) use of antibiotics; Z79.899 Other long term (current) drug therapy; Z88.0 Allergy status to penicillin; Z88.1 Allergy status to other antibiotic agents; Z88.2 Allergy status to sulfonamides; Z88.5 Allergy status to narcotic agent; Z88.8 Allergy status to other drugs, medicaments and biological substances; Z91.048 Other nonmedicinal substance allergy status; Z86.711 Personal history of pulmonary embolism; Z95.2 Presence of prosthetic heart valve; Z90.79 Acquired absence of other genital organ(s); Z62.810 Personal history of physical and sexual abuse in childhood

== ENCOUNTER → 2024-05-22 | Outpatient (CLI) | payer MEDICARE, MEDICAID ==
[~2024-05-22] MED LIST changes: +CYCL5TAB4 PO; +HYDR4TAB PO; +MELO15TA28 PO; +PRED10TA2 PO; +PREG200C2 PO; +VENL150C43 PO
== END ==
LOC: M PAIN 14:30
PROVIDERS: ATTEND Anesthesiology
DX: M48.062 Spinal stenosis, lumbar region with neurogenic claudication (principal); Z79.891 Long term (current) use of opiate analgesic; M51.16 Intervertebral disc disorders with radiculopathy, lumbar region; M43.10 Spondylolisthesis, site unspecified; G89.29 Other chronic pain; E66.01 Morbid (severe) obesity due to excess calories; F32.A Depression, unspecified; F41.9 Anxiety disorder, unspecified; D63.8 Anemia in other chronic diseases classified elsewhere; M65.4 Radial styloid tenosynovitis [de Quervain]; I10 Essential (primary) hypertension; I48.91 Unspecified atrial fibrillation; Z96.611 Presence of right artificial shoulder joint; Z86.711 Personal history of pulmonary embolism; N32.81 Overactive bladder; Z86.14 Personal history of Methicillin resistant Staphylococcus aureus infection; Z68.43 Body mass index [BMI] 50.0-59.9, adult; Z79.01 Long term (current) use of anticoagulants; Z79.899 Other long term (current) drug therapy; Z88.0 Allergy status to penicillin; Z88.1 Allergy status to other antibiotic agents; Z88.2 Allergy status to sulfonamides; Z88.5 Allergy status to narcotic agent; Z88.6 Allergy status to analgesic agent; Z88.8 Allergy status to other drugs, medicaments and biological substances

== ENCOUNTER → 2024-05-23 | Outpatient (REF) | payer MEDICARE, MEDICAID | LOC: EEVIPCON 15:24 → M SFHCPLAZ 15:24 | PROVIDERS: ATTEND Internal Medicine Infectious Disease | DX: A49.02 Methicillin resistant Staphylococcus aureus infection, unspecified site (principal) ==

== ENCOUNTER 2024-06-21 14:31 | Emergency (ER) | payer MEDICARE, MEDICAID ==
[~2024-06-21] VITALS: Ht 162.6 cm; Wt 145.4 kg
[2024-06-21] MEDS: HYDROmorphone 2 MG TAB PO ONE (19:57)
[2024-06-21] MEDS: KETOROLAC 30 MG/ML 1ML VIAL IM ONE (19:57)
[2024-06-21] MEDS ORDERED: CYCLOBENZAPRINE 5MG TABLET PO SCH (21:00)
[2024-06-21] MEDS ORDERED: HOME MED LIST COMPLETE! XX SCH (23:00)
[2024-06-21] MEDS ORDERED: HYDROmorphone 2 MG TAB PO PRN (23:15)
[2024-06-21] MEDS ORDERED: PILL CUTTER 1 EACH XX PRN (23:35)
[2024-06-22] MEDS ORDERED: HYDROmorphone 2 MG TAB PO PRN (00:15)
[2024-06-22] MEDS: MAGNESIUM OXIDE 400MG TAB (MAG-OX) PO SCH (03:12)
[2024-06-22] MEDS: DOXYCYCLINE HYCLATE 100MG TABLET PO SCH (03:12)
[2024-06-22] MEDS: DIVALPROEX 500 MG TAB PO SCH (03:13)
[2024-06-22] MEDS: PREGABALIN 100 MG CAP (LYRICA) PO SCH (03:13)
[2024-06-22] MEDS: CYCLOBENZAPRINE 5MG TABLET PO SCH (03:23)
[2024-06-22] MEDS: APIXABAN 5 MG TAB (ELIQUIS) PO SCH (03:23)
[2024-06-22] MEDS: rOPINIRole 2MG TAB PO SCH (04:21)
[2024-06-22] MEDS: rOPINIRole 1MG TAB PO SCH (04:21)
[2024-06-22 07:12] LABS: BLOOD UREA NITROGEN 21 MG/DL (9-23); CALCIUM LEVEL 8.8 MG/DL (8.3-10.6); CARBON DIOXIDE LEVEL 29 MMOL/L (20-31); CHLORIDE LEVEL 107 MMOL/L (98-107); CREATININE FOR GFR 0.87 MG/DL (0.55-1.30); GLOMERULAR FILTRATION RATE > 60.0 (>45); GLUCOSE, FASTING 141 MG/DL (74-106); POTASSIUM SERUM 5.7 MMOL/L (3.5-5.1); SODIUM LEVEL 143 MMOL/L (136-145)
[2024-06-22 07:28] LABS: HEMATOCRIT 39.4 % (36.0-47.0); HEMOGLOBIN 12.1 g/dl (12.0-15.5); MEAN CORPUSCULAR HEMOGLOBIN 27.7 pg (27.0-33.0); MEAN CORPUSCULAR HGB CONC 30.7 g/dl (32.0-36.5); MEAN CORPUSCULAR VOLUME 90.2 fl (80.0-96.0); PLATELET COUNT, AUTOMATED 143 10^3/uL (150-450); RED BLOOD COUNT 4.37 10^6/uL (4.00-5.40); WHITE BLOOD COUNT 4.6 10^3/uL (4.0-10.0)
[2024-06-22] MEDS: VENLAFAXINE **XR** 75MG CAPSULE PO SCH (09:54)
[2024-06-22] MEDS: oxyBUTYnin *DITROPAN XL* 5 MG TABCR PO SCH (09:54)
[2024-06-22] MEDS: CALCIUM/VITAMIN D 500 MG TAB PO SCH (10:50)
[2024-06-22] MEDS ORDERED: PILL CUTTER 1 EACH XX PRN (12:50)
[2024-06-22] MEDS: predniSONE 20 MG TAB PO SCH (13:45)
[2024-06-22 14:01] LABS: BLOOD UREA NITROGEN 22 MG/DL (9-23); CALCIUM LEVEL 8.5 MG/DL (8.3-10.6); CARBON DIOXIDE LEVEL 31 MMOL/L (20-31); CHLORIDE LEVEL 106 MMOL/L (98-107); CREATININE FOR GFR 0.92 MG/DL (0.55-1.30); GLOMERULAR FILTRATION RATE > 60.0 (>45); GLUCOSE, FASTING 95 MG/DL (74-106); SODIUM LEVEL 144 MMOL/L (136-145)
[2024-06-22] MEDS: HYDROmorphone 2 MG TAB PO PRN (17:18)
[2024-06-23] MEDS ORDERED: PRED10TA2 PO (12:44)
[2024-06-23] MEDS ORDERED: CYCL5TAB4 PO (12:44)
[2024-06-23 13:30] VITALS: BP 146/80; TEMP 97.9; O2SAT 95
== END 2024-06-23 13:41 | disposition home or self-care (01) ==
LOC: M ED 14:31
DX: M54.32 Sciatica, left side (principal); M48.061 Spinal stenosis, lumbar region without neurogenic claudication; M43.16 Spondylolisthesis, lumbar region; I10 Essential (primary) hypertension; G62.9 Polyneuropathy, unspecified; Z98.84 Bariatric surgery status; Z87.442 Personal history of urinary calculi; E66.01 Morbid (severe) obesity due to excess calories; Z68.43 Body mass index [BMI] 50.0-59.9, adult; I48.91 Unspecified atrial fibrillation; F32.A Depression, unspecified; F41.9 Anxiety disorder, unspecified; N32.81 Overactive bladder; Z86.711 Personal history of pulmonary embolism; Z79.01 Long term (current) use of anticoagulants; Z79.899 Other long term (current) drug therapy; Z88.0 Allergy status to penicillin; Z88.2 Allergy status to sulfonamides; Z88.1 Allergy status to other antibiotic agents; Z88.5 Allergy status to narcotic agent; Z88.8 Allergy status to other drugs, medicaments and biological substances
CPT/HCPCS: 36415; 72131; 80048; 85027; 96372; 97116; 97161; 97530; 99285; J1100; J1885; J7512

== ENCOUNTER 2024-07-21 07:54 | Inpatient (IN) | payer MEDICARE, MEDICAID ==
[~2024-07-21] VITALS: Ht 162.6 cm; Wt 144.8 kg
[2024-07-21] MEDS ORDERED: HYDROmorphone 4MG TABLET PO PRN (09:25)
[2024-07-21] MEDS: HYDROmorphone 2 MG TAB PO PRN ×2 (09:45→20:03)
[2024-07-21] MEDS: NS 500 ML IV ONE (09:46)
[2024-07-21 09:54] LABS: HEMATOCRIT 38.7 % (36.0-47.0); HEMOGLOBIN 11.9 g/dl (12.0-15.5); MEAN CORPUSCULAR HEMOGLOBIN 28.4 pg (27.0-33.0); MEAN CORPUSCULAR HGB CONC 30.7 g/dl (32.0-36.5); MEAN CORPUSCULAR VOLUME 92.4 fl (80.0-96.0); PLATELET COUNT, AUTOMATED 136 10^3/uL (150-450); RED BLOOD COUNT 4.19 10^6/uL (4.00-5.40); WHITE BLOOD COUNT 5.4 10^3/uL (4.0-10.0)
[2024-07-21 10:25] LABS: ALBUMIN 2.9 G/DL (3.2-5.2); ALKALINE PHOSPHATASE 114 U/L (35-104); ALT/SGPT 14 U/L (7.0-40); AST/SGOT 21 U/L (<34); BILIRUBIN,TOTAL 0.4 MG/DL (0.3-1.2); BLOOD UREA NITROGEN 19 MG/DL (9-23); CARBON DIOXIDE LEVEL 32 MMOL/L (20-31); CHLORIDE LEVEL 105 MMOL/L (98-107); CREATININE FOR GFR 0.93 MG/DL (0.55-1.30); GLOMERULAR FILTRATION RATE > 60.0 (>45); GLUCOSE, FASTING 94 MG/DL (74-106); MAGNESIUM LEVEL 2.2 MG/DL (1.8-2.4); POTASSIUM SERUM 4.3 MMOL/L (3.5-5.1); SODIUM LEVEL 143 MMOL/L (136-145)
[2024-07-21 10:29] LABS: FOLATE 19.86 NG/ML (>5.4); TOTAL 25(OH) VITAMIN D 42.9 NG/ML (20.0-100.0)
[2024-07-21 10:30] LABS: VITAMIN B12 LEVEL 1296 PG/ML (211-911)
[2024-07-21 12:56] LABS: C REACTIVE PROTEIN QUANTITATIV 2.77 MG/DL (<1.0)
[2024-07-21 13:10] LABS: PROCALCITONIN 0.08 ng/ml
[2024-07-21] MEDS ORDERED: HYDROMORPHONE HCL 0.5 MG/ 0.5 ML SYRINGE IV PRN (13:10)
[2024-07-21] MEDS: NS (Normal Saline) 0.9% 1,000 ML IV ONE ×2 (13:15→14:11)
[2024-07-21] MEDS: MIDODRINE 5 MG TAB PO ONE ×2 (14:14→16:16)
[2024-07-21] MEDS: ACETAMINOPHEN 500 MG TAB PO SCH (14:15)
[2024-07-21] MEDS ORDERED: DILA4TAB13 PO (15:18)
[2024-07-21] MEDS ORDERED: HYDR4TAB PO (15:29)
[2024-07-21 15:31] VITALS: BP 100/54; TEMP 98.8; O2SAT 93
[2024-07-21] MEDS ORDERED: HOME MED LIST COMPLETE! XX SCH (15:35)
[2024-07-21] MEDS: MULTIVITAMINS/MINERALS THERAP 1 TAB PO SCH (16:15)
[2024-07-21] MEDS: VENLAFAXINE **XR** 75MG CAPSULE PO SCH (16:15)
[2024-07-21] MEDS: CALCIUM/VITAMIN D 500 MG TAB PO SCH (16:16)
[2024-07-21] MEDS: CYANOCOBALAMIN 500 MCG TAB PO SCH (16:16)
[2024-07-21] MEDS: LR 1,000 ML IV ONE ×2 (16:16→17:40)
[2024-07-21 16:54] VITALS: BP 109/56
[2024-07-21] MEDS: KETOROLAC 30 MG/ML 1ML VIAL IV ONE (17:04)
[2024-07-21] MEDS: traMADol 50 MG TAB PO ONE (17:04)
[2024-07-21 17:23] LABS: PROCALCITONIN 0.08 ng/ml
[2024-07-21 17:24] LABS: MB/CK RELATIVE INDEX 0.53 (< OR =4)
[2024-07-21 17:29] LABS: KETONE, URINE AUTO RFX NEGATIVE (NEGATIVE); MUCUS, URINE RFX SMALL (NEGATIVE); NITRITE, URINE AUTO RFX NEGATIVE (NEGATIVE); RBC, URINE AUTO RFX 2 /HPF (0-3); SQUAM EPITHELIAL CELL UR AURFX 1 /HPF (0-6)
[2024-07-21] MEDS: CYCLOBENZAPRINE 5MG TABLET PO ONE (17:31)
[2024-07-21 17:32] LABS: LEUKOCYTE ESTERASE UR AUTO RFX TRACE (NEGATIVE); WBC, URINE AUTO RFX 21 /HPF (0-3)
[2024-07-21 17:33] VITALS: BP 109/59
[2024-07-21] MEDS: NS (Normal Saline) 0.9% 1,000 ML IV SCH (18:42)
[2024-07-21 18:49] VITALS: BP 102/53
[2024-07-21] MEDS ORDERED: NALOXONE INJ 0.4MG/1ML VIAL IV PRN (19:45)
[2024-07-21 19:56] VITALS: BP 104/51; TEMP 96.7; O2SAT 94
[2024-07-21 20:00] LABS: FREE T4 0.92 NG/DL (0.89-1.76); THYROID STIMULATING HORMONE 2.811 uIU/ML (0.55-4.78)
[2024-07-21 20:02] LABS: CORTISOL PM 16.8 UG/DL (3.1-16.7)
[2024-07-21] MEDS: FLUDROCORTISONE ACETATE 0.1 MG TAB PO ONE (20:02)
[2024-07-21] MEDS ORDERED: oxyBUTYnin *DITROPAN XL* 5 MG TABCR PO SCH (21:00)
[2024-07-21] MEDS: DIVALPROEX 500 MG TAB PO SCH (21:40)
[2024-07-21] MEDS: DOXYCYCLINE HYCLATE 100MG TABLET PO SCH (21:40)
[2024-07-21] MEDS: rOPINIRole 1MG TAB PO SCH (21:41)
[2024-07-21] MEDS: MAGNESIUM OXIDE 400MG TAB (MAG-OX) PO SCH (21:41)
[2024-07-21] MEDS: PREGABALIN 100 MG CAP (LYRICA) PO SCH (21:41)
[2024-07-21] MEDS: APIXABAN 5 MG TAB (ELIQUIS) PO SCH (21:42)
[2024-07-21] MEDS: CYCLOBENZAPRINE 5MG TABLET PO SCH (21:42)
[2024-07-21] MEDS: HYDROCORTISONE 100MG/2ML VIAL IV SCH (21:43)
[2024-07-21 22:00] LABS: BLOOD UREA NITROGEN 18 MG/DL (9-23); CALCIUM LEVEL 8.1 MG/DL (8.3-10.6); CARBON DIOXIDE LEVEL 27 MMOL/L (20-31); CHLORIDE LEVEL 107 MMOL/L (98-107); CREATININE FOR GFR 0.93 MG/DL (0.55-1.30); GLOMERULAR FILTRATION RATE > 60.0 (>45); GLUCOSE, FASTING 98 MG/DL (74-106); POTASSIUM SERUM 4.4 MMOL/L (3.5-5.1); SODIUM LEVEL 142 MMOL/L (136-145)
[2024-07-21 23:42] VITALS: BP 127/80; TEMP 97; O2SAT 95
[2024-07-22 04:51] VITALS: BP 126/77; TEMP 97.2; O2SAT 97
[2024-07-22 05:53] LABS: HEMATOCRIT 37.1 % (36.0-47.0); HEMOGLOBIN 11.8 g/dl (12.0-15.5); LYMPH % 20.8 % (24.0-44.0); MEAN CORPUSCULAR HEMOGLOBIN 28.9 pg (27.0-33.0); MEAN CORPUSCULAR HGB CONC 31.8 g/dl (32.0-36.5); MEAN CORPUSCULAR VOLUME 90.9 fl (80.0-96.0); MONO # 0.1 10^3/uL (0.0-0.8); MONO % 2.8 % (2.0-8.0); NEUTROPHILS # 3.8 10^3/uL (1.5-8.5); NEUTROPHILS % 75.8 % (36.0-66.0); PLATELET COUNT, AUTOMATED 130 10^3/uL (150-450); RED BLOOD COUNT 4.08 10^6/uL (4.00-5.40)
[2024-07-22 06:15] LABS: BLOOD UREA NITROGEN 20 MG/DL (9-23); CALCIUM LEVEL 8.3 MG/DL (8.3-10.6); CARBON DIOXIDE LEVEL 27 MMOL/L (20-31); CHLORIDE LEVEL 107 MMOL/L (98-107); CREATININE FOR GFR 0.94 MG/DL (0.55-1.30); GLOMERULAR FILTRATION RATE > 60.0 (>45); GLUCOSE, FASTING 154 MG/DL (74-106); POTASSIUM SERUM 4.9 MMOL/L (3.5-5.1); SODIUM LEVEL 141 MMOL/L (136-145)
[2024-07-22 07:36] VITALS: BP 143/86; TEMP 97.6; O2SAT 96
[2024-07-22 08:00] VITALS: BP 120/70; TEMP 98.8; O2SAT 95
[2024-07-22] MEDS ORDERED: MIDODRINE 5 MG TAB PO SCH (08:00)
[2024-07-22] MEDS ORDERED: FLUDROCORTISONE ACETATE 0.1 MG TAB PO SCH (09:00)
[2024-07-22] MEDS: HYDROCORTISONE 100MG/2ML VIAL IV SCH (09:30)
[2024-07-22] MEDS: traMADol 50 MG TAB PO PRN (11:44)
[2024-07-22 12:05] VITALS: BP 137/81; TEMP 98.2; O2SAT 96
[2024-07-22 16:00] VITALS: BP 136/74; TEMP 98.6; O2SAT 94
[2024-07-22 19:47] VITALS: BP 129/60; TEMP 97.8; O2SAT 96
[2024-07-23 03:57] VITALS: BP 140/88; TEMP 97.6; O2SAT 96
[2024-07-23 06:44] LABS: EOS % 0.4 % (0.0-3.0); HEMATOCRIT 36.1 % (36.0-47.0); HEMOGLOBIN 11.2 g/dl (12.0-15.5); LYMPH % 20.5 % (24.0-44.0); MEAN CORPUSCULAR VOLUME 90.3 fl (80.0-96.0); MONO # 0.3 10^3/uL (0.0-0.8); MONO % 6.8 % (2.0-8.0); NEUTROPHILS # 3.6 10^3/uL (1.5-8.5); NEUTROPHILS % 71.7 % (36.0-66.0); PLATELET COUNT, AUTOMATED 138 10^3/uL (150-450)
[2024-07-23 07:06] LABS: BLOOD UREA NITROGEN 19 MG/DL (9-23); CALCIUM LEVEL 8.7 MG/DL (8.3-10.6); CARBON DIOXIDE LEVEL 25 MMOL/L (20-31); CHLORIDE LEVEL 111 MMOL/L (98-107); CREATININE FOR GFR 0.91 MG/DL (0.55-1.30); GLOMERULAR FILTRATION RATE > 60.0 (>45); GLUCOSE, FASTING 143 MG/DL (74-106); POTASSIUM SERUM 4.6 MMOL/L (3.5-5.1); SODIUM LEVEL 145 MMOL/L (136-145)
[2024-07-23 07:44] VITALS: BP 135/88; TEMP 98; O2SAT 92
[2024-07-23 16:00] VITALS: BP 126/84; TEMP 97.6; O2SAT 96
[2024-07-23 20:00] VITALS: BP 174/110; TEMP 97.4; O2SAT 96
[2024-07-23 23:18] VITALS: BP 147/79; TEMP 98.2; O2SAT 93
[2024-07-24] VITALS: BP 147/79; TEMP 98.2; O2SAT 93
[2024-07-24 04:05] VITALS: BP 121/85; TEMP 96.9; O2SAT 96
[2024-07-24 06:38] LABS: EOS % 0.7 % (0.0-3.0); HEMATOCRIT 37.7 % (36.0-47.0); HEMOGLOBIN 11.8 g/dl (12.0-15.5); LYMPH # 1.5 10^3/uL (1.5-5.0); LYMPH % 25.9 % (24.0-44.0); MEAN CORPUSCULAR HGB CONC 31.3 g/dl (32.0-36.5); MEAN CORPUSCULAR VOLUME 89.3 fl (80.0-96.0); MONO # 0.4 10^3/uL (0.0-0.8); MONO % 6.3 % (2.0-8.0); NEUTROPHILS # 3.8 10^3/uL (1.5-8.5); PLATELET COUNT, AUTOMATED 147 10^3/uL (150-450); RED BLOOD COUNT 4.22 10^6/uL (4.00-5.40); WHITE BLOOD COUNT 5.7 10^3/uL (4.0-10.0)
[2024-07-24 07:02] LABS: BLOOD UREA NITROGEN 16 MG/DL (9-23); CALCIUM LEVEL 8.5 MG/DL (8.3-10.6); CARBON DIOXIDE LEVEL 30 MMOL/L (20-31); CHLORIDE LEVEL 106 MMOL/L (98-107); GLOMERULAR FILTRATION RATE > 60.0 (>45); GLUCOSE, FASTING 111 MG/DL (74-106); POTASSIUM SERUM 4.2 MMOL/L (3.5-5.1); SODIUM LEVEL 144 MMOL/L (136-145)
[2024-07-24 09:00] VITALS: BP 131/63; TEMP 97.5; O2SAT 96
[2024-07-24] MEDS: HYDROmorphone 2 MG TAB PO PRN (09:15)
[2024-07-24 12:30] VITALS: BP 170/60; TEMP 98.7; O2SAT 96
[2024-07-24 16:00] VITALS: BP 139/81; TEMP 98.4; O2SAT 95
[2024-07-24] MEDS: HYDROCORTISONE 10 MG TAB PO SCH (16:32)
[2024-07-24 19:55] VITALS: BP 123/90; TEMP 98.5; O2SAT 96
[2024-07-25 04:16] VITALS: BP 129/69; TEMP 97.2; O2SAT 95
[2024-07-25 06:13] LABS: BASO % 0.2 % (0.0-1.0); EOS % 0.2 % (0.0-3.0); HEMATOCRIT 36.1 % (36.0-47.0); HEMOGLOBIN 11.3 g/dl (12.0-15.5); LYMPH # 1.7 10^3/uL (1.5-5.0); LYMPH % 30.5 % (24.0-44.0); MEAN CORPUSCULAR HEMOGLOBIN 28.2 pg (27.0-33.0); MEAN CORPUSCULAR HGB CONC 31.3 g/dl (32.0-36.5); MONO # 0.5 10^3/uL (0.0-0.8); MONO % 7.9 % (2.0-8.0); NEUTROPHILS # 3.4 10^3/uL (1.5-8.5); NEUTROPHILS % 60.3 % (36.0-66.0); PLATELET COUNT, AUTOMATED 139 10^3/uL (150-450); RED BLOOD COUNT 4.01 10^6/uL (4.00-5.40); WHITE BLOOD COUNT 5.7 10^3/uL (4.0-10.0)
[2024-07-25 06:37] LABS: BLOOD UREA NITROGEN 15 MG/DL (9-23); CALCIUM LEVEL 8.5 MG/DL (8.3-10.6); CARBON DIOXIDE LEVEL 32 MMOL/L (20-31); CHLORIDE LEVEL 106 MMOL/L (98-107); CREATININE FOR GFR 0.79 MG/DL (0.55-1.30); GLOMERULAR FILTRATION RATE > 60.0 (>45); GLUCOSE, FASTING 105 MG/DL (74-106); POTASSIUM SERUM 3.8 MMOL/L (3.5-5.1); SODIUM LEVEL 144 MMOL/L (136-145)
[2024-07-25 07:37] VITALS: BP 157/80; TEMP 97.8; O2SAT 96
[2024-07-25 12:15] VITALS: BP 150/75; TEMP 97.7; O2SAT 95
[2024-07-25] MEDS ORDERED: PRED10TA2 PO (15:22)
[2024-07-25 15:45] VITALS: BP 160/80; TEMP 97.8; O2SAT 95
== END 2024-07-25 15:11 | disposition home or self-care (01) | DRG 643 ==
LOC: EDBD 07:54 → M ED 07:54 → M ED INP 14:02 → M PCU 15:28
PROVIDERS: ADMIT General Practice; ATTEND General Practice
PROC: B246ZZZ Ultrasonography of Right and Left Heart (ICD-10-PCS; principal; 2024-07-22)
DX: E27.40 Unspecified adrenocortical insufficiency (principal); J18.9 Pneumonia, unspecified organism; I48.21 Permanent atrial fibrillation; J98.11 Atelectasis; N13.30 Unspecified hydronephrosis; Z66 Do not resuscitate; I10 Essential (primary) hypertension; E11.42 Type 2 diabetes mellitus with diabetic polyneuropathy; E66.01 Morbid (severe) obesity due to excess calories; R29.6 Repeated falls; R26.89 Other abnormalities of gait and mobility; M54.30 Sciatica, unspecified side; N32.81 Overactive bladder; F32.A Depression, unspecified; F41.9 Anxiety disorder, unspecified; G89.29 Other chronic pain; I35.2 Nonrheumatic aortic (valve) stenosis with insufficiency; I27.20 Pulmonary hypertension, unspecified; D64.9 Anemia, unspecified; M48.061 Spinal stenosis, lumbar region without neurogenic claudication; M16.12 Unilateral primary osteoarthritis, left hip; I95.9 Hypotension, unspecified; N20.0 Calculus of kidney; Z96.653 Presence of artificial knee joint, bilateral; Z96.611 Presence of right artificial shoulder joint; Z90.79 Acquired absence of other genital organ(s); Z95.2 Presence of prosthetic heart valve; Z86.711 Personal history of pulmonary embolism; Z62.811 Personal history of psychological abuse in childhood; Z98.84 Bariatric surgery status; Z79.01 Long term (current) use of anticoagulants; Z79.2 Long term (current) use of antibiotics; Z79.899 Other long term (current) drug therapy; Z88.0 Allergy status to penicillin; Z88.1 Allergy status to other antibiotic agents; Z88.2 Allergy status to sulfonamides; Z88.5 Allergy status to narcotic agent; Z88.8 Allergy status to other drugs, medicaments and biological substances; Z91.048 Other nonmedicinal substance allergy status

== ENCOUNTER 2024-08-19 17:39 | Inpatient (IN) | payer MEDICARE, MEDICAID ==
[~2024-08-19] VITALS: Ht 157.5 cm; Wt 148.6 kg
[2024-08-19 18:42] LABS: HEMATOCRIT 44.2 % (36.0-47.0); HEMOGLOBIN 13.3 g/dl (12.0-15.5); MEAN CORPUSCULAR HEMOGLOBIN 27.9 pg (27.0-33.0); MEAN CORPUSCULAR HGB CONC 30.1 g/dl (32.0-36.5); MEAN CORPUSCULAR VOLUME 92.7 fl (80.0-96.0); PLATELET COUNT, AUTOMATED 161 10^3/uL (150-450); RED BLOOD COUNT 4.77 10^6/uL (4.00-5.40); WHITE BLOOD COUNT 9.7 10^3/uL (4.0-10.0)
[2024-08-19 18:45] LABS: KETONE, URINE AUTO RFX NEGATIVE (NEGATIVE); LEUKOCYTE ESTERASE UR AUTO RFX 2+ (NEGATIVE); MUCUS, URINE RFX SMALL (NEGATIVE); NITRITE, URINE AUTO RFX NEGATIVE (NEGATIVE); RBC, URINE AUTO RFX 29 /HPF (0-3); SQUAM EPITHELIAL CELL UR AURFX 6 /HPF (0-6); WBC, URINE AUTO RFX TNTC /HPF (0-3); YEAST LIKE CELL URINE AUTO RFX SMALL
[2024-08-19 19:16] LABS: BLOOD UREA NITROGEN 22 MG/DL (9-23); CALCIUM LEVEL 9.7 MG/DL (8.3-10.6); CARBON DIOXIDE LEVEL 33 MMOL/L (20-31); CHLORIDE LEVEL 105 MMOL/L (98-107); CREATININE FOR GFR 0.91 MG/DL (0.55-1.30); GLOMERULAR FILTRATION RATE > 60.0 (>45); GLUCOSE, FASTING 150 MG/DL (74-106); SODIUM LEVEL 144 MMOL/L (136-145)
[2024-08-20 02:15] LABS: LIPASE 22 U/L (12-53)
[2024-08-20 02:17] LABS: ALBUMIN 3.6 G/DL (3.2-5.2); ALKALINE PHOSPHATASE 124 U/L (35-104); ALT/SGPT 23 U/L (7.0-40); AST/SGOT 26 U/L (<34); BILIRUBIN,DIRECT 0.2 MG/DL (<0.4); BILIRUBIN,TOTAL 0.4 MG/DL (0.3-1.2); TOTAL PROTEIN 6.8 G/DL (5.7-8.2)
[2024-08-20 02:21] LABS: C REACTIVE PROTEIN QUANTITATIV 1.69 MG/DL (<1.0)
[2024-08-20] MEDS: ONDANSETRON 4MG 2ML VIAL IV ONE (02:53)
[2024-08-20] MEDS: ACETAMINOPHEN *IV* 1,000 MG in IV 1 EA IV ONE (02:53)
[2024-08-20] MEDS: cefTRIAXone SOD 2 GM in DEXTROSE 5% (D5W) ADV/MINI-BAG 50 ML IV ONE (03:44)
[2024-08-20 03:52] LABS: PROCALCITONIN 0.07 ng/ml
[2024-08-20] MEDS: SODIUM CHLORIDE 0.9% 1000 ML IV SCH (04:08)
[2024-08-20 04:25] LABS: MAGNESIUM LEVEL 2.2 MG/DL (1.8-2.4)
[2024-08-20] MEDS: NS (Normal Saline) 0.9% 1,000 ML IV SCH (06:06)
[2024-08-20 07:01] LABS: VENOUS BASE EXCESS 0.4 (-2.0-2.0); VENOUS O2 SATURATION 89.3 % (60.0-80.0); VENOUS PARTIAL PRESSURE O2 62.3 mmHg (30.0-50.0); VENOUS PH 7.341 UNITS (7.330-7.430); VENOUS STANDARD HCO3 24.7 MMOL/L; VENOUS TOTAL CO2 28.5 MMOL/L (24.0-28.0)
[2024-08-20] MEDS: PANTOPRAZOLE 40MG VIAL IV SCH (08:36)
[2024-08-20] MEDS ORDERED: RIME75TA PO (09:19)
[2024-08-20] MEDS: KETOROLAC 30 MG/ML 1ML VIAL IV ONE (09:25)
[2024-08-20] MEDS ORDERED: PRED10TA2 PO (09:48)
[2024-08-20] MEDS ORDERED: HOME MED LIST COMPLETE! XX SCH (09:50)
[2024-08-20] MEDS: APIXABAN 5 MG TAB (ELIQUIS) PO SCH (11:21)
[2024-08-20] MEDS: oxyBUTYnin *DITROPAN XL* 5 MG TABCR PO SCH (14:58)
[2024-08-20] MEDS: HYDROmorphone 2 MG TAB PO PRN (14:58)
[2024-08-20] MEDS: VENLAFAXINE **XR** 75MG CAPSULE PO SCH (14:59)
[2024-08-20] MEDS: FLUCONAZOLE 100 MG TAB PO SCH (15:07)
[2024-08-20 17:20] VITALS: BP 123/81; TEMP 98.8; O2SAT 99
[2024-08-20 20:01] VITALS: BP 109/72; TEMP 98.9; O2SAT 95
[2024-08-20 20:01] LABS: VENOUS BASE EXCESS 1.2 (-2.0-2.0); VENOUS HCO3 27.2 MMOL/L (23.0-27.0); VENOUS O2 SATURATION 96.1 % (60.0-80.0); VENOUS PARTIAL PRESSURE CO2 48.6 mmHg (38.0-50.0); VENOUS PARTIAL PRESSURE O2 91.3 mmHg (30.0-50.0); VENOUS PH 7.365 UNITS (7.330-7.430); VENOUS STANDARD HCO3 25.5 MMOL/L; VENOUS TOTAL CO2 28.6 MMOL/L (24.0-28.0)
[2024-08-20 20:30] LABS: BLOOD UREA NITROGEN 21 MG/DL (9-23); CALCIUM LEVEL 8.8 MG/DL (8.3-10.6); CARBON DIOXIDE LEVEL 29 MMOL/L (20-31); CHLORIDE LEVEL 107 MMOL/L (98-107); CREATININE FOR GFR 1.08 MG/DL (0.55-1.30); GLUCOSE, FASTING 183 MG/DL (74-106); POTASSIUM SERUM 4.7 MMOL/L (3.5-5.1); SODIUM LEVEL 142 MMOL/L (136-145)
[2024-08-20] MEDS: DIVALPROEX 500 MG TAB PO SCH (21:09)
[2024-08-20] MEDS: CYCLOBENZAPRINE 5MG TABLET PO SCH (21:10)
[2024-08-20] MEDS: PREGABALIN 100 MG CAP (LYRICA) PO SCH (21:10)
[2024-08-20] MEDS: MAGNESIUM OXIDE 400MG TAB (MAG-OX) PO SCH (21:10)
[2024-08-20] MEDS: rOPINIRole 1MG TAB PO SCH (21:10)
[2024-08-20 21:42] LABS: CK-MB VALUE MASS < 1.0 NG/ML (<3.6)
[2024-08-20 21:43] LABS: CPK CREATINE PHOSPHOKINASE 42 U/L (34-145); MB/CK RELATIVE INDEX 2.38 (< OR =4)
[2024-08-20 23:48] LABS: MB/CK RELATIVE INDEX 2.77 (< OR =4)
[2024-08-21] VITALS (23 sets, daily range): BP systolic 92–127; BP diastolic 55–75; TEMP 97.1–99.1; O2SAT 92–98
[2024-08-21] MEDS: dilTIAZem 30 MG TAB PO SCH (02:30)
[2024-08-21] MEDS: cefTRIAXone SOD 1 GM in DEXTROSE 5% (D5W) ADV/MINI-BAG 50 ML IV SCH (05:45)
[2024-08-21 06:43] LABS: BASO % 0.7 % (0.0-1.0); EOS # 0.1 10^3/uL (0.0-0.5); EOS % 2.4 % (0.0-3.0); HEMATOCRIT 33.2 % (36.0-47.0); LYMPH # 1.5 10^3/uL (1.5-5.0); MEAN CORPUSCULAR HEMOGLOBIN 29.2 pg (27.0-33.0); MEAN CORPUSCULAR HGB CONC 31.6 g/dl (32.0-36.5); MEAN CORPUSCULAR VOLUME 92.2 fl (80.0-96.0); MONO # 0.6 10^3/uL (0.0-0.8); MONO % 10.9 % (2.0-8.0); NEUTROPHILS # 3.5 10^3/uL (1.5-8.5); NEUTROPHILS % 59.5 % (36.0-66.0); PLATELET COUNT, AUTOMATED 130 10^3/uL (150-450); WHITE BLOOD COUNT 5.8 10^3/uL (4.0-10.0)
[2024-08-21 06:50] LABS: HEMOGLOBIN 10.5 g/dl (12.0-15.5)
[2024-08-21 06:51] LABS: CALCIUM LEVEL 8.2 MG/DL (8.3-10.6); CREATININE FOR GFR 1.03 MG/DL (0.55-1.30); GLOMERULAR FILTRATION RATE 59.2 (>45); POTASSIUM SERUM 4.4 MMOL/L (3.5-5.1)
[2024-08-21] MEDS: ONDANSETRON 4MG 2ML VIAL IV PRN (10:21)
[2024-08-21] MEDS: ACETAMINOPHEN 325 MG TAB PO PRN (17:04)
[2024-08-21] MEDS: NYSTATIN 100,000 UNITS/GM TOPICAL PWD 15GM TOP PRN (18:19)
[2024-08-21] MEDS: PANTOPRAZOLE 40MG TAB (PROTONIX) PO SCH (20:28)
[2024-08-22] VITALS (27 sets, daily range): BP systolic 98–127; BP diastolic 53–62; TEMP 96.8–97.7; O2SAT 90–98
[2024-08-22 06:11] LABS: BASO % 0.4 % (0.0-1.0); EOS # 0.2 10^3/uL (0.0-0.5); EOS % 3.1 % (0.0-3.0); HEMATOCRIT 35.3 % (36.0-47.0); HEMOGLOBIN 10.7 g/dl (12.0-15.5); LYMPH # 1.3 10^3/uL (1.5-5.0); LYMPH % 26.2 % (24.0-44.0); MEAN CORPUSCULAR HEMOGLOBIN 28.5 pg (27.0-33.0); MEAN CORPUSCULAR HGB CONC 30.3 g/dl (32.0-36.5); MEAN CORPUSCULAR VOLUME 94.1 fl (80.0-96.0); MONO # 0.5 10^3/uL (0.0-0.8); MONO % 9.9 % (2.0-8.0); NEUTROPHILS # 2.9 10^3/uL (1.5-8.5); NEUTROPHILS % 59.2 % (36.0-66.0); PLATELET COUNT, AUTOMATED 136 10^3/uL (150-450); RED BLOOD COUNT 3.75 10^6/uL (4.00-5.40); WHITE BLOOD COUNT 4.9 10^3/uL (4.0-10.0)
[2024-08-22 06:29] LABS: CALCIUM LEVEL 8.1 MG/DL (8.3-10.6); CREATININE FOR GFR 0.88 MG/DL (0.55-1.30); GLOMERULAR FILTRATION RATE 71.5 (>45); POTASSIUM SERUM 4.5 MMOL/L (3.5-5.1)
[2024-08-22] MEDS: CALCIUM CARBONATE 500 MG CHEW U/D PO ONE (23:04)
[2024-08-23] VITALS (15 sets, daily range): BP systolic 85–115; BP diastolic 43–77; TEMP 97–98.6; O2SAT 93–98
[2024-08-23 05:42] LABS: BASO % 0.5 % (0.0-1.0); EOS # 0.2 10^3/uL (0.0-0.5); EOS % 4.3 % (0.0-3.0); HEMATOCRIT 37.3 % (36.0-47.0); HEMOGLOBIN 11.1 g/dl (12.0-15.5); LYMPH # 1.4 10^3/uL (1.5-5.0); LYMPH % 30.8 % (24.0-44.0); MEAN CORPUSCULAR HGB CONC 29.8 g/dl (32.0-36.5); MEAN CORPUSCULAR VOLUME 94.2 fl (80.0-96.0); MONO # 0.4 10^3/uL (0.0-0.8); MONO % 9.3 % (2.0-8.0); NEUTROPHILS # 2.4 10^3/uL (1.5-8.5); NEUTROPHILS % 54.2 % (36.0-66.0); PLATELET COUNT, AUTOMATED 143 10^3/uL (150-450); RED BLOOD COUNT 3.96 10^6/uL (4.00-5.40); WHITE BLOOD COUNT 4.4 10^3/uL (4.0-10.0)
[2024-08-23 06:05] LABS: CALCIUM LEVEL 8.5 MG/DL (8.3-10.6); CREATININE FOR GFR 0.92 MG/DL (0.55-1.30); GLOMERULAR FILTRATION RATE 67.8 (>45); POTASSIUM SERUM 4.6 MMOL/L (3.5-5.1)
[2024-08-23] MEDS: diphenhydrAMINE CREAM 30GM TOP PRN (15:16)
[2024-08-24] VITALS (7 sets, daily range): BP systolic 90–105; BP diastolic 49–60; TEMP 97.5–97.9; O2SAT 91–94
[2024-08-24] MEDS: NS 500 ML IV ONE (00:11)
[2024-08-24 05:51] LABS: BASO % 0.7 % (0.0-1.0); EOS # 0.2 10^3/uL (0.0-0.5); EOS % 3.8 % (0.0-3.0); HEMATOCRIT 35.9 % (36.0-47.0); HEMOGLOBIN 10.9 g/dl (12.0-15.5); LYMPH # 1.5 10^3/uL (1.5-5.0); LYMPH % 35.3 % (24.0-44.0); MEAN CORPUSCULAR HEMOGLOBIN 27.9 pg (27.0-33.0); MEAN CORPUSCULAR HGB CONC 30.4 g/dl (32.0-36.5); MEAN CORPUSCULAR VOLUME 92.1 fl (80.0-96.0); MONO # 0.5 10^3/uL (0.0-0.8); MONO % 10.8 % (2.0-8.0); NEUTROPHILS # 2.1 10^3/uL (1.5-8.5); NEUTROPHILS % 48.5 % (36.0-66.0); PLATELET COUNT, AUTOMATED 161 10^3/uL (150-450); WHITE BLOOD COUNT 4.3 10^3/uL (4.0-10.0)
[2024-08-24 06:18] LABS: CALCIUM LEVEL 8.1 MG/DL (8.3-10.6); CREATININE FOR GFR 0.88 MG/DL (0.55-1.30); GLOMERULAR FILTRATION RATE 71.5 (>45); POTASSIUM SERUM 4.8 MMOL/L (3.5-5.1)
[2024-08-24] MEDS: DOXYCYCLINE HYCLATE 100MG TABLET PO SCH (09:08)
[2024-08-24] MEDS: FIORICET TAB PO ONE (09:08)
[2024-08-24] MEDS: METOCLOPRAMIDE INJ 10MG/2ML VIAL IV ONE (18:26)
[2024-08-25 04:00] VITALS: BP 94/58; TEMP 97.5; O2SAT 96
[2024-08-25 05:48] LABS: BASO % 0.8 % (0.0-1.0); EOS # 0.2 10^3/uL (0.0-0.5); EOS % 4.7 % (0.0-3.0); HEMATOCRIT 40.1 % (36.0-47.0); HEMOGLOBIN 12.2 g/dl (12.0-15.5); LYMPH # 1.5 10^3/uL (1.5-5.0); LYMPH % 38.6 % (24.0-44.0); MEAN CORPUSCULAR HGB CONC 30.4 g/dl (32.0-36.5); MEAN CORPUSCULAR VOLUME 92.2 fl (80.0-96.0); MONO # 0.4 10^3/uL (0.0-0.8); MONO % 10.2 % (2.0-8.0); NEUTROPHILS # 1.7 10^3/uL (1.5-8.5); NEUTROPHILS % 44.7 % (36.0-66.0); PLATELET COUNT, AUTOMATED 160 10^3/uL (150-450); RED BLOOD COUNT 4.35 10^6/uL (4.00-5.40); WHITE BLOOD COUNT 3.8 10^3/uL (4.0-10.0)
[2024-08-25 06:03] LABS: CALCIUM LEVEL 8.3 MG/DL (8.3-10.6); CREATININE FOR GFR 0.92 MG/DL (0.55-1.30); GLOMERULAR FILTRATION RATE 67.8 (>45)
[2024-08-25] MEDS: HYDROmorphone 4MG TABLET PO PRN (08:52)
[2024-08-25 12:00] VITALS: BP 106/74; TEMP 97.9; O2SAT 91
[2024-08-25] MEDS: MIRALAX *UNIT DOSE* 17GM PACKET PO PRN (14:42)
[2024-08-25 19:57] VITALS: BP 99/56; TEMP 97.7; O2SAT 92
[2024-08-26 03:51] VITALS: BP 114/74; TEMP 97.3; O2SAT 94
[2024-08-26 05:46] LABS: BASO % 0.9 % (0.0-1.0); EOS # 0.2 10^3/uL (0.0-0.5); EOS % 3.8 % (0.0-3.0); HEMATOCRIT 38.5 % (36.0-47.0); HEMOGLOBIN 11.7 g/dl (12.0-15.5); LYMPH # 1.9 10^3/uL (1.5-5.0); LYMPH % 42.6 % (24.0-44.0); MEAN CORPUSCULAR HEMOGLOBIN 27.9 pg (27.0-33.0); MEAN CORPUSCULAR HGB CONC 30.4 g/dl (32.0-36.5); MEAN CORPUSCULAR VOLUME 91.9 fl (80.0-96.0); MONO # 0.4 10^3/uL (0.0-0.8); MONO % 9.7 % (2.0-8.0); NEUTROPHILS # 1.9 10^3/uL (1.5-8.5); NEUTROPHILS % 41.9 % (36.0-66.0); PLATELET COUNT, AUTOMATED 175 10^3/uL (150-450); RED BLOOD COUNT 4.19 10^6/uL (4.00-5.40); WHITE BLOOD COUNT 4.4 10^3/uL (4.0-10.0)
[2024-08-26 06:03] LABS: CALCIUM LEVEL 8.1 MG/DL (8.3-10.6); CREATININE FOR GFR 0.98 MG/DL (0.55-1.30); GLOMERULAR FILTRATION RATE 62.9 (>45); POTASSIUM SERUM 5.5 MMOL/L (3.5-5.1)
[2024-08-26 08:11] LABS: CORTISOL AM 4.1 UG/DL (4.3-22.4)
[2024-08-26] MEDS: COSYNTROPIN 0.25 MG/ML 1ML VIAL IV ONE (10:58)
[2024-08-26 12:00] VITALS: BP 117/82; TEMP 97.7; O2SAT 99
[2024-08-26] MEDS: METOCLOPRAMIDE INJ 10MG/2ML VIAL IV ONE (12:10)
[2024-08-26 20:16] VITALS: BP 112/64; TEMP 97.7; O2SAT 98
[2024-08-27 03:00] VITALS: BP 110/73; TEMP 97.7; O2SAT 95
[2024-08-27 06:14] LABS: BASO % 0.4 % (0.0-1.0); EOS # 0.1 10^3/uL (0.0-0.5); EOS % 2.4 % (0.0-3.0); HEMATOCRIT 36.5 % (36.0-47.0); LYMPH % 37.8 % (24.0-44.0); MEAN CORPUSCULAR HEMOGLOBIN 27.9 pg (27.0-33.0); MEAN CORPUSCULAR HGB CONC 30.1 g/dl (32.0-36.5); MEAN CORPUSCULAR VOLUME 92.6 fl (80.0-96.0); MONO # 0.5 10^3/uL (0.0-0.8); MONO % 8.4 % (2.0-8.0); NEUTROPHILS # 2.7 10^3/uL (1.5-8.5); NEUTROPHILS % 49.5 % (36.0-66.0); PLATELET COUNT, AUTOMATED 177 10^3/uL (150-450); RED BLOOD COUNT 3.94 10^6/uL (4.00-5.40); WHITE BLOOD COUNT 5.4 10^3/uL (4.0-10.0)
[2024-08-27 06:25] LABS: CALCIUM LEVEL 8.3 MG/DL (8.3-10.6); CREATININE FOR GFR 0.9 MG/DL (0.55-1.30); GLOMERULAR FILTRATION RATE 69.6 (>45); POTASSIUM SERUM 4.5 MMOL/L (3.5-5.1)
[2024-08-27] MEDS ORDERED: LIDOCAINE 4% CREAM 5GM (LMX4) TOP PRN (10:50)
[2024-08-27] MEDS: MIRALAX *UNIT DOSE* 17GM PACKET PO SCH (11:47)
[2024-08-27] MEDS: SENOKOT S TAB PO SCH (11:47)
[2024-08-27 12:00] VITALS: BP 132/91; TEMP 97.5; O2SAT 95
[2024-08-27 20:19] VITALS: BP 129/89; TEMP 97.5; O2SAT 95
[2024-08-28 03:16] VITALS: BP 134/89; TEMP 97.7; O2SAT 97
[2024-08-28 12:00] VITALS: BP 95/52; TEMP 97.9; O2SAT 94
[2024-08-28 20:22] VITALS: BP 104/66; TEMP 97.8; O2SAT 97
[2024-08-29 03:08] VITALS: BP 103/73; TEMP 97.7; O2SAT 96
[2024-08-29 08:29] VITALS: BP 107/74
[2024-08-30 02:54] VITALS: BP 116/71; TEMP 97.5; O2SAT 95
[2024-08-30 08:00] VITALS: BP 104/60; TEMP 97.7; O2SAT 94
[2024-08-31 06:03] VITALS: BP 120/74; TEMP 97; O2SAT 95
[2024-08-31] MEDS ORDERED: SENN8.6T28 PO (08:11)
== END 2024-08-31 10:23 | disposition home or self-care (01) | DRG 872 ==
LOC: M ED 17:39 → EDBD 17:39 → M ED INP 08-20 03:38 → M MSPAV 08-20 17:16 → M PCU 08-20 22:17 → M MSPAV 08-23 21:11
PROVIDERS: ADMIT Student in an Organized Health Care Education/Training Program; ATTEND Internal Medicine Nephrology
PROC: B246ZZZ Ultrasonography of Right and Left Heart (ICD-10-PCS; principal; 2024-08-21)
DX: A41.9 Sepsis, unspecified organism (principal); N12 Tubulo-interstitial nephritis, not specified as acute or chronic; I24.89 Other forms of acute ischemic heart disease; I48.21 Permanent atrial fibrillation; Z68.43 Body mass index [BMI] 50.0-59.9, adult; Z66 Do not resuscitate; E66.01 Morbid (severe) obesity due to excess calories; F32.A Depression, unspecified; I27.20 Pulmonary hypertension, unspecified; F41.9 Anxiety disorder, unspecified; D63.8 Anemia in other chronic diseases classified elsewhere; G89.29 Other chronic pain; I10 Essential (primary) hypertension; M65.4 Radial styloid tenosynovitis [de Quervain]; I95.89 Other hypotension; Z96.611 Presence of right artificial shoulder joint; K75.81 Nonalcoholic steatohepatitis (NASH); G62.9 Polyneuropathy, unspecified; N32.81 Overactive bladder; G47.30 Sleep apnea, unspecified; Z90.79 Acquired absence of other genital organ(s); Z96.653 Presence of artificial knee joint, bilateral; Z98.84 Bariatric surgery status; Z79.01 Long term (current) use of anticoagulants; Z79.52 Long term (current) use of systemic steroids; Z79.899 Other long term (current) drug therapy; Z88.0 Allergy status to penicillin; Z88.1 Allergy status to other antibiotic agents; Z88.2 Allergy status to sulfonamides; Z88.5 Allergy status to narcotic agent; Z88.8 Allergy status to other drugs, medicaments and biological substances; Z91.048 Other nonmedicinal substance allergy status; Z95.2 Presence of prosthetic heart valve; Z86.711 Personal history of pulmonary embolism; M16.0 Bilateral primary osteoarthritis of hip; R26.89 Other abnormalities of gait and mobility

== ENCOUNTER → 2024-09-02 | Outpatient (REF) | payer MEDICARE, MEDICAID ==
[~2024-09-02] MED LIST changes: +RIME75TA PO; +SENN8.6T28 PO
[2024-09-02 18:27] LABS: BASO % 0.6 % (0.0-1.0); EOS # 0.1 10^3/uL (0.0-0.5); HEMOGLOBIN 12.9 g/dl (12.0-15.5); LYMPH # 1.2 10^3/uL (1.5-5.0); LYMPH % 23.4 % (24.0-44.0); MEAN CORPUSCULAR HEMOGLOBIN 27.9 pg (27.0-33.0); MEAN CORPUSCULAR HGB CONC 30.7 g/dl (32.0-36.5); MEAN CORPUSCULAR VOLUME 90.9 fl (80.0-96.0); MONO # 0.5 10^3/uL (0.0-0.8); MONO % 9.1 % (2.0-8.0); NEUTROPHILS # 3.2 10^3/uL (1.5-8.5); NEUTROPHILS % 64.9 % (36.0-66.0); PLATELET COUNT, AUTOMATED 176 10^3/uL (150-450); RED BLOOD COUNT 4.62 10^6/uL (4.00-5.40); WHITE BLOOD COUNT 4.9 10^3/uL (4.0-10.0)
[2024-09-02 18:52] LABS: VALPROIC ACID (DEPAKOTE) 4.4 UG/ML (50.0-100.0)
[2024-09-02 18:53] LABS: ALBUMIN 3.5 G/DL (3.2-5.2); BILIRUBIN,TOTAL 0.4 MG/DL (0.3-1.2); CALCIUM LEVEL 9.2 MG/DL (8.3-10.6); CREATININE FOR GFR 0.81 MG/DL (0.55-1.30); POTASSIUM SERUM 4.3 MMOL/L (3.5-5.1); TOTAL PROTEIN 6.5 G/DL (5.7-8.2)
== END ==
LOC: M LABDRWAD 17:07
PROVIDERS: ATTEND Psychiatry & Neurology Neurology
DX: R51.9 Headache, unspecified (principal); Z79.899 Other long term (current) drug therapy

== ENCOUNTER → 2024-09-10 | Outpatient (CLI) | payer MEDICARE, MEDICAID ==
[~2024-09-10] MED LIST changes: -BUPR-597 PO; +BUPR-766 PO; -FLOM0.4C39 PO; +TAMS-18 PO
[2024-09-16 02:42] LABS: ACETONE SP None Detected; ETHANOL SP None Detected; ISOPROPANOL SP None Detected; METHANOL SP None Detected
== END ==
LOC: M PLALAB 11:46
PROVIDERS: ATTEND Nurse Practitioner Family
DX: Z79.891 Long term (current) use of opiate analgesic (principal)

== ENCOUNTER → 2024-11-28 | Outpatient (REF) | payer MEDICARE, MEDICAID ==
[~2024-11-28] MED LIST changes: +DIVA-41 PO; -DIVA500T94 PO; +MORP-69 PO; +PREG150C2 PO
== END ==
LOC: M LABDRAWP 17:46
PROVIDERS: ATTEND Nurse Practitioner Family
DX: Z79.891 Long term (current) use of opiate analgesic (principal)
CPT/HCPCS: 36415; 80307; G0480

== ENCOUNTER → 2024-12-04 | Outpatient (CLI) | payer MEDICARE ==
[2024-12-04 15:28] LABS: APPEARANCE, URINE CLOUDY (CLEAR); BACTERIA, URINE AUTO NEGATIVE (NEGATIVE); BILIRUBIN, URINE AUTO NEGATIVE (NEGATIVE); BLOOD, URINE BLOOD 3+ (NEGATIVE); GLUCOSE, URINE (UA) AUTO NEGATIVE (NEGATIVE); KETONE, URINE AUTO TRACE mg/dL (NEGATIVE); LEUKOCYTE ESTERASE, URINE AUTO TRACE (NEGATIVE); MUCUS, URINE SMALL (NEGATIVE); NITRITE, URINE AUTO NEGATIVE (NEGATIVE); PROTEIN, URINE AUTO 2+ mg/dL (NEGATIVE); RBC, URINE AUTO TNTC /HPF (0-3); SPECIFIC GRAVITY URINE AUTO 1.013 (1.002-1.035); SQUAMOUS EPITHELIAL CELL UR AU 3 /HPF (0-6); UROBILINOGEN, URINE AUTO 0.2 mg/dL (0.0-2.0); WBC, URINE AUTO 28 /HPF (0-3)
== END ==
LOC: M LAB 14:46
PROVIDERS: ATTEND Family Medicine
DX: R31.0 Gross hematuria (principal)

== ENCOUNTER 2024-12-07 22:09 | Emergency (ER) | payer MEDICARE ==
[~2024-12-07] VITALS: Ht 157.5 cm; Wt 141.8 kg
[2024-12-07 23:13] LABS: BASO # 0.0 10^3/uL (0.0-0.2); BASO % 0.4 % (0.0-1.0); EOS # 0.1 10^3/uL (0.0-0.5); EOS % 2.0 % (0.0-3.0); LYMPH # 1.6 10^3/uL (1.5-5.0); LYMPH % 35.0 % (24.0-44.0); MONO # 0.6 10^3/uL (0.0-0.8); MONO % 13.2 % (2.0-8.0); NEUTROPHILS # 2.2 10^3/uL (1.5-8.5); NEUTROPHILS % 49.2 % (36.0-66.0); PLATELET COUNT, AUTOMATED 149 10^3/uL (150-450)
[2024-12-07 23:30] LABS: KETONE, URINE AUTO RFX NEGATIVE (NEGATIVE); NITRITE, URINE AUTO RFX NEGATIVE (NEGATIVE); RBC, URINE AUTO RFX TNTC /HPF (0-3); SQUAM EPITHELIAL CELL UR AURFX 1 /HPF (0-6)
[2024-12-07 23:40] LABS: LEUKOCYTE ESTERASE UR AUTO RFX TRACE (NEGATIVE); WBC, URINE AUTO RFX 142 /HPF (0-3)
[2024-12-07 23:42] LABS: ALT/SGPT 16.0 U/L (7.0-40); AST/SGOT 27.0 U/L (<34); CALCIUM LEVEL 9.0 MG/DL (8.3-10.6); CARBON DIOXIDE LEVEL 25.0 MMOL/L (20-31); CHLORIDE LEVEL 106.0 MMOL/L (98-107); CREATININE FOR GFR 0.87 MG/DL (0.55-1.30); GLOMERULAR FILTRATION RATE 72.1 (>45); POTASSIUM SERUM 4.7 MMOL/L (3.5-5.1); SODIUM LEVEL 145.0 MMOL/L (136-145)
[2024-12-08] MEDS ORDERED: ISOVUE-370 76% 100 ML VIAL As Ordered ONE (02:29)
[2024-12-08] MEDS: HYDROMORPHONE HCL 0.5 MG/0.5 ML SYRINGE IV PRN (03:18)
[2024-12-08 05:00] VITALS: O2SAT 92
[2024-12-08] MEDS: oxyCODONE 10 MG CR TAB PO ONE (05:05)
[2024-12-08 05:47] VITALS: BP 115/52; TEMP 98.8; O2SAT 92
== END 2024-12-08 05:52 | disposition home or self-care (01) ==
LOC: M ED 22:09
DX: S70.02XA Contusion of left hip, initial encounter (principal); W01.119A Fall on same level from slipping, tripping and stumbling with subsequent striking against unspecified sharp object, initial encounter; Y92.009 Unspecified place in unspecified non-institutional (private) residence as the place of occurrence of the external cause; Y93.9 Activity, unspecified; Y99.9 Unspecified external cause status; M47.812 Spondylosis without myelopathy or radiculopathy, cervical region; N20.0 Calculus of kidney; M85.871 Other specified disorders of bone density and structure, right ankle and foot; Z79.01 Long term (current) use of anticoagulants; Z79.899 Other long term (current) drug therapy; Z88.0 Allergy status to penicillin; Z88.2 Allergy status to sulfonamides; Z88.1 Allergy status to other antibiotic agents; Z91.89 Other specified personal risk factors, not elsewhere classified; Z88.5 Allergy status to narcotic agent; Z88.8 Allergy status to other drugs, medicaments and biological substances
CPT/HCPCS: 70450; 72125; 73521; 74177; 80048; 80076; 81001; 83690; 85025; 86850; 86900; 86901; 87086; 93005; 96374; 99285; J1171; Q9967

== ENCOUNTER → 2024-12-18 | Outpatient (CLI) | payer MEDICAID, MEDICARE ==
[~2024-12-18] MED LIST changes: +OXYC-141 PO; +OXYC10TA12 PO
[2024-12-18 15:12] LABS: PLATELET COUNT, AUTOMATED 135 10^3/uL (150-450)
[2024-12-18 15:15] LABS: APPEARANCE, URINE CLOUDY (CLEAR); BACTERIA, URINE AUTO NEGATIVE (NEGATIVE); BILIRUBIN, URINE AUTO NEGATIVE (NEGATIVE); BLOOD, URINE BLOOD 3+ (NEGATIVE); GLUCOSE, URINE (UA) AUTO NEGATIVE (NEGATIVE); KETONE, URINE AUTO NEGATIVE (NEGATIVE); LEUKOCYTE ESTERASE, URINE AUTO 1+ (NEGATIVE); MUCUS, URINE SMALL (NEGATIVE); NITRITE, URINE AUTO NEGATIVE (NEGATIVE); PROTEIN, URINE AUTO 2+ mg/dL (NEGATIVE); RBC, URINE AUTO TNTC /HPF (0-3); SPECIFIC GRAVITY URINE AUTO 1.017 (1.002-1.035); SQUAMOUS EPITHELIAL CELL UR AU 6 /HPF (0-6); UROBILINOGEN, URINE AUTO 0.2 mg/dL (0.0-2.0); WBC, URINE AUTO 0 /HPF (0-3)
[2024-12-18 15:17] LABS: CALCIUM LEVEL 8.9 MG/DL (8.3-10.6); CARBON DIOXIDE LEVEL 28.0 MMOL/L (20-31); CHLORIDE LEVEL 105.0 MMOL/L (98-107); CREATININE FOR GFR 0.88 MG/DL (0.55-1.30); GLOMERULAR FILTRATION RATE 71.1 (>45); POTASSIUM SERUM 4.9 MMOL/L (3.5-5.1); SODIUM LEVEL 142.0 MMOL/L (136-145)
== END ==
LOC: M PLALAB 12:54
PROVIDERS: ATTEND Urology
DX: Z01.818 Encounter for other preprocedural examination (principal); N20.0 Calculus of kidney; R31.0 Gross hematuria; N39.0 Urinary tract infection, site not specified

== ENCOUNTER 2024-12-25 08:51 | Day surgery (SDC) | payer MEDICAID, MEDICARE ==
[~2024-12-25] VITALS: Ht 157.5 cm; Wt 139.7 kg
[~2024-12-25 08:51] MED LIST changes: +LIDOCAINE 2% 100 MG/5 ML SDV (FOR ANES.) As Ordered ONE; +MIDAZOLAM INJ 2 MG/2 ML VIAL As Ordered ONE; +ONDANSETRON 4MG 2ML VIAL As Ordered ONE; +ceFAZolin SOD 3 GM in DEXTROSE 5% (D5W) MINI-BAG PLU 1... IV ONE; +dexAMETHasone 4 MG/ML 1 ML VIAL As Ordered ONE
[2024-12-25] MEDS ORDERED: ISOVUE-300 61% 100 ML VIAL As Ordered ONE (11:55)
[2024-12-25] MEDS ORDERED: ACETAMINOPHEN 1000MG/100ML IV BAG As Ordered ONE (13:45)
[2024-12-25] MEDS: ONDANSETRON 4MG 2ML VIAL IV PRN (14:20)
[2024-12-25] MEDS: PROMETHAZINE 25MG/ML 1ML VIAL IV PRN (14:39)
[2024-12-25] MEDS ORDERED: TAMS-18 PO (17:02)
[2024-12-25 17:23] VITALS: BP 144/79; TEMP 97.4; O2SAT 96
== END 2024-12-25 17:25 | disposition home or self-care (01) ==
LOC: M SDC 08:51
PROVIDERS: ATTEND Urology
DX: N20.0 Calculus of kidney (principal); R31.9 Hematuria, unspecified; I10 Essential (primary) hypertension; D64.9 Anemia, unspecified; I35.0 Nonrheumatic aortic (valve) stenosis; M10.9 Gout, unspecified; E66.01 Morbid (severe) obesity due to excess calories; Z98.84 Bariatric surgery status; G43.909 Migraine, unspecified, not intractable, without status migrainosus; Z79.01 Long term (current) use of anticoagulants; Z79.2 Long term (current) use of antibiotics; F43.10 Post-traumatic stress disorder, unspecified; F41.9 Anxiety disorder, unspecified; F32.A Depression, unspecified; Z88.0 Allergy status to penicillin; Z88.2 Allergy status to sulfonamides; Z88.1 Allergy status to other antibiotic agents; Z88.5 Allergy status to narcotic agent
CPT/HCPCS: 52356; 74420; 82365; C1769; C1894; C2617; J0131; J1100; J2250; J2405; J2550; J3010; Q9967

== ENCOUNTER 2025-01-23 02:32 | Observation (INO) | payer MEDICAID, MEDICARE ==
[~2025-01-23] VITALS: Ht 157.5 cm; Wt 141.7 kg
[~2025-01-23 02:32] MED LIST changes: -LIDOCAINE 2% 100 MG/5 ML SDV (FOR ANES.) As Ordered ONE; -MIDAZOLAM INJ 2 MG/2 ML VIAL As Ordered ONE; -ONDANSETRON 4MG 2ML VIAL As Ordered ONE; -ceFAZolin SOD 3 GM in DEXTROSE 5% (D5W) MINI-BAG PLU 1... IV ONE; -dexAMETHasone 4 MG/ML 1 ML VIAL As Ordered ONE
[2025-01-23 07:09] LABS: BASO # 0.0 10^3/uL (0.0-0.2); BASO % 0.5 % (0.0-1.0); EOS # 0.1 10^3/uL (0.0-0.5); EOS % 1.2 % (0.0-3.0); LYMPH # 1.8 10^3/uL (1.5-5.0); LYMPH % 27.9 % (24.0-44.0); MONO # 0.8 10^3/uL (0.0-0.8); MONO % 12.3 % (2.0-8.0); NEUTROPHILS # 3.7 10^3/uL (1.5-8.5); NEUTROPHILS % 57.8 % (36.0-66.0); PLATELET COUNT, AUTOMATED 134 10^3/uL (150-450)
[2025-01-23 07:22] LABS: ERYTHROCYTE SEDIMENTATION RATE 19 mm/hr (0-30)
[2025-01-23 07:33] LABS: C REACTIVE PROTEIN QUANTITATIV 0.91 MG/DL (<1.0); CALCIUM LEVEL 8.9 MG/DL (8.3-10.6); CARBON DIOXIDE LEVEL 30.0 MMOL/L (20-31); CHLORIDE LEVEL 106.0 MMOL/L (98-107); CREATININE FOR GFR 1.1 MG/DL (0.55-1.30); GLOMERULAR FILTRATION RATE 54.4 (>45); POTASSIUM SERUM 4.6 MMOL/L (3.5-5.1); SODIUM LEVEL 144.0 MMOL/L (136-145)
[2025-01-23] MEDS: ONDANSETRON 4MG 2ML VIAL IV ONE (08:16)
[2025-01-23] MEDS: diphenhydrAMINE 50 MG/ML VIAL IV ONE (08:17)
[2025-01-23] MEDS: HYDROMORPHONE HCL 0.5 MG/0.5 ML SYRINGE IV PRN ×2 (08:18→17:58)
[2025-01-23] MEDS ORDERED: HYDR-3713 PO ×2 (10:44→10:53)
[2025-01-23] MEDS ORDERED: med rec comment (13:30)
[2025-01-23] MEDS ORDERED: MORP15TA2 PO (13:30)
[2025-01-23] MEDS ORDERED: HOME MED LIST COMPLETE! XX SCH (14:10)
[2025-01-23] MEDS ORDERED: ACETAMINOPHEN 500 MG TAB PO PRN (15:05)
[2025-01-23] MEDS: oxyBUTYnin *XL* 5 MG TAB PO SCH (15:22)
[2025-01-23] MEDS: VENLAFAXINE **XR** 75MG CAPSULE PO SCH (15:24)
[2025-01-23] MEDS ORDERED: NALOXONE INJ 0.4 MG/1 ML VIAL IV PRN (15:40)
[2025-01-23 17:35] VITALS: BP 106/59; TEMP 98; O2SAT 93
[2025-01-23 19:54] VITALS: BP 108/56; TEMP 97.8; O2SAT 96
[2025-01-23] MEDS: APIXABAN 5 MG TAB PO SCH (20:51)
[2025-01-23] MEDS: MAGNESIUM OXIDE 400 MG TAB PO SCH (20:52)
[2025-01-23] MEDS: CYCLOBENZAPRINE 5 MG TABLET PO PRN (20:52)
[2025-01-23] MEDS: DIVALPROEX 500 MG TAB PO SCH (21:47)
[2025-01-23 23:41] VITALS: BP 104/56; TEMP 97.8; O2SAT 93
[2025-01-24 03:33] VITALS: BP 133/80; TEMP 97.5; O2SAT 97
[2025-01-24] MEDS: MORPHINE SULFATE TAB IMM. REL. 15 MG PO PRN (03:41)
[2025-01-24 06:02] LABS: BASO # 0.0 10^3/uL (0.0-0.2); BASO % 0.7 % (0.0-1.0); EOS # 0.1 10^3/uL (0.0-0.5); EOS % 2.5 % (0.0-3.0); LYMPH # 1.6 10^3/uL (1.5-5.0); LYMPH % 36.7 % (24.0-44.0); MONO # 0.5 10^3/uL (0.0-0.8); MONO % 12.2 % (2.0-8.0); NEUTROPHILS # 2.1 10^3/uL (1.5-8.5); NEUTROPHILS % 47.7 % (36.0-66.0); PLATELET COUNT, AUTOMATED 119 10^3/uL (150-450)
[2025-01-24 06:32] LABS: CALCIUM LEVEL 8.9 MG/DL (8.3-10.6); CARBON DIOXIDE LEVEL 30.0 MMOL/L (20-31); CHLORIDE LEVEL 107.0 MMOL/L (98-107); CREATININE FOR GFR 0.82 MG/DL (0.55-1.30); GLOMERULAR FILTRATION RATE 77.4 (>45); POTASSIUM SERUM 4.8 MMOL/L (3.5-5.1); SODIUM LEVEL 145.0 MMOL/L (136-145)
[2025-01-24 07:29] VITALS: BP 132/92; TEMP 97.2; O2SAT 97
[2025-01-24] MEDS ORDERED: KETOROLAC 30 MG/ML 1 ML VIAL IV ONE (08:00)
[2025-01-24] MEDS: ACETAMINOPHEN *IV* 1,000 MG in IV 1 EA IV ONE (08:23)
[2025-01-24] MEDS ORDERED: DICLOFENAC EPOLAMINE 1.3% PATCH TOP SCH (09:00)
[2025-01-24] MEDS: MORPHINE SULFATE TAB IMM. REL. 30 MG PO ONE (10:29)
[2025-01-24] MEDS: VANICREAM MOISTURIZING SKIN CREAM 113GM TUBE TOP SCH (10:30)
[2025-01-24] MEDS: KETOROLAC 30 MG/ML 1 ML VIAL IV SCH (10:30)
[2025-01-24] MEDS: NYSTATIN 100,000 UNITS/GM TOPICAL PWD 15 GM TOP SCH (15:43)
[2025-01-24 15:44] VITALS: BP 113/76; TEMP 98.1; O2SAT 97
[2025-01-24] MEDS: FLUZONE HIGH DOSE TRI (25-26) 0.5 ML SYRINGE IM.IMMUN ONE (15:53)
[2025-01-24 19:36] VITALS: BP 94/60; TEMP 97; O2SAT 96
[2025-01-24] MEDS: LIDOCAINE 5% PATCH TD SCH (20:11)
[2025-01-25 01:01] VITALS: BP 101/56
[2025-01-25 01:15] VITALS: BP 110/75; TEMP 97; O2SAT 95
[2025-01-25 04:23] VITALS: BP 113/77; TEMP 97.2; O2SAT 95
[2025-01-25] MEDS ORDERED: MORP15TA2 PO (08:41)
== END 2025-01-25 14:25 | disposition home or self-care (01) ==
LOC: M ED 02:32 → M ED INP 02:33 → EEVIPCON 02:33 → M PCU 17:25 → M MSPAV 01-25 01:10
PROVIDERS: ADMIT General Practice; ATTEND General Practice
DX: M16.12 Unilateral primary osteoarthritis, left hip (principal); M25.552 Pain in left hip; E66.01 Morbid (severe) obesity due to excess calories; T84.020A Dislocation of internal right hip prosthesis, initial encounter; Z96.611 Presence of right artificial shoulder joint; I95.89 Other hypotension; Z98.84 Bariatric surgery status; K74.60 Unspecified cirrhosis of liver; R26.89 Other abnormalities of gait and mobility; N28.1 Cyst of kidney, acquired; Z79.891 Long term (current) use of opiate analgesic; G89.29 Other chronic pain; I35.2 Nonrheumatic aortic (valve) stenosis with insufficiency; I48.21 Permanent atrial fibrillation; D63.8 Anemia in other chronic diseases classified elsewhere; I10 Essential (primary) hypertension; G47.33 Obstructive sleep apnea (adult) (pediatric); Z86.711 Personal history of pulmonary embolism; Z79.01 Long term (current) use of anticoagulants; N32.81 Overactive bladder; Z23 Encounter for immunization; M54.50 Low back pain, unspecified; F41.9 Anxiety disorder, unspecified; F32.A Depression, unspecified; G25.81 Restless legs syndrome; Z86.14 Personal history of Methicillin resistant Staphylococcus aureus infection; Z79.899 Other long term (current) drug therapy
CPT/HCPCS: 36415; 72128; 72131; 73030; 73552; 73564; 80048; 84145; 84550; 85025; 85652; 86140; 90662; 96374; 96375; 96376; 97116; 97161; 97165; 97530; 99285; G0008; G0378; J0131; J1171; J1200; J1885; J2405

== ENCOUNTER 2025-03-14 18:07 | Emergency (ER) | payer MEDICAID, MEDICARE ==
[~2025-03-14 18:07] MED LIST changes: +MORP15TA2 PO; +med rec comment
[2025-03-14] MEDS: HYDROMORPHONE HCL 0.5 MG/0.5 ML SYRINGE IV ONE (21:25)
[2025-03-14] MEDS: diphenhydrAMINE 50 MG/ML VIAL IV STA (22:48)
[2025-03-14] MEDS: MORPHINE 4 MG/ML 1 ML VIAL IV ONE (22:50)
[2025-03-15] MEDS: HYDROMORPHONE HCL 0.5 MG/0.5 ML SYRINGE IV PRN ×2 (00:21→10:10)
[2025-03-15] MEDS: NS (Normal Saline) 0.9% 1,000 ML IV ONE (02:25)
[2025-03-15] MEDS: NS 500 ML IV ONE (06:33)
[2025-03-15] MEDS ORDERED: HYDROMORPHONE HCL 0.5 MG/0.5 ML SYRINGE IV PRN (09:35)
[2025-03-15 10:00] VITALS: BP 99/61
[2025-03-15 10:16] VITALS: TEMP 98.3; O2SAT 94
== END 2025-03-15 10:21 | disposition short-term general hospital (02) ==
LOC: M ED 18:07 → EDBD 18:07 → M ED 03-15 10:21
DX: S72.332A Displaced oblique fracture of shaft of left femur, initial encounter for closed fracture (principal); Z96.652 Presence of left artificial knee joint; W18.39XA Other fall on same level, initial encounter; Y92.009 Unspecified place in unspecified non-institutional (private) residence as the place of occurrence of the external cause; Y93.9 Activity, unspecified; Y99.9 Unspecified external cause status; I48.91 Unspecified atrial fibrillation; I10 Essential (primary) hypertension; E66.9 Obesity, unspecified; K74.60 Unspecified cirrhosis of liver; Z86.711 Personal history of pulmonary embolism; M16.10 Unilateral primary osteoarthritis, unspecified hip; M76.891 Other specified enthesopathies of right lower limb, excluding foot; M41.86 Other forms of scoliosis, lumbar region; M41.87 Other forms of scoliosis, lumbosacral region; Z79.82 Long term (current) use of aspirin; Z79.899 Other long term (current) drug therapy; Z88.0 Allergy status to penicillin; Z88.2 Allergy status to sulfonamides; Z88.1 Allergy status to other antibiotic agents; Z88.5 Allergy status to narcotic agent; Z88.8 Allergy status to other drugs, medicaments and biological substances; Z91.89 Other specified personal risk factors, not elsewhere classified
CPT/HCPCS: 72190; 73502; 73564; 73590; 73610; 73630; 73700; 96361; 96374; 96375; 96376; 99285; J1171; J1200